=== PATIENT | male | born 1980 | race Caucasian/White ===

== ENCOUNTER → 2018-05-26 07:53 | Outpatient (CLI) | payer OTHER, SELFPAY ==
[2018-05-26 09:00] LABS: Glucose 100 mg/dL (74-106)
[2018-05-28 16:12] LABS: CHOLESTEROL TOTAL 182 mg/dL (100-199); HDL-C 42 mg/dL (>39); HDL-P TOTAL 31.9 umol/L (>=30.5); SMALL LDL-P 471 nmol/L (<=527); TRIGLYCERIDES 88 mg/dL (0-149)
[2018-05-29 13:41] LABS: LDL SIZE 21.1 nm (>20.5); LDL-C 122 mg/dL (0-99); LDL-P 1542 nmol/L (<1000); LP-IR SCORE ** 53 (<=45)
== END ==
PROVIDERS: Family Provider Internal Medicine; PCP Internal Medicine; Referring Provider Internal Medicine; Visit Provider Internal Medicine
DX: Z00.00 Encounter for general adult medical examination without abnormal findings (principal)
CPT/HCPCS: 36415; 80061; 82947; 83704

== ENCOUNTER → 2019-11-22 14:22 | Outpatient (CLI) | payer OTHER, SELFPAY ==
[2018-08-17 07:28] VITALS: BMI 34.1
[2019-11-22 17:41] LABS: Absolute Lymphocyte Count 2.56 X10^3/uL (0.83-4.51); Basophil# 0.04 X10^3/uL; Basophil% 0.4 % (0-1); Eosinophil# 0.29 X10^3/uL; Hematocrit 48.2 % (40-54); Hemoglobin 15.8 g/dL (13.0-16.5); Lymphocyte # 2.56 X10^3/ul (4.0); Lymphocyte % 26.2 % (19-41); Mean Corp Hgb Conc 32.8 g/dL (32-36); Mean Corpuscular Hgb 28.1 pg (27.0-32.0); Mean Corpuscular Volume 85.6 fL (80-94); Mean Platelet Vol. 11.4 fl (6.2-12.0); Monocyte# 0.79 X10^3/uL; Monocyte% 8.1 % (0-10); NRBC Flagged by Analyzer 0 % (0-5); Neutrophil # 6.04 X10^3/uL (2.7-7.7); Neutrophil % 61.8 % (47-70); Platelet Count 306 K/mm3 (150-450); RBC Distribution Width CV 12.9 % (11.6-14.6); RBC Distribution Width SD 39.6 fl (35.1-43.9); Red Blood Count 5.63 M/mm3 (4.6-6.2); White Blood Count 9.8 K/mm3 (4.4-11.0)
[2019-11-22 17:59] LABS: ALB/GLOB Ratio 0.9 RATIO (0.9-2.4); AST(SGOT) 19 U/L (15-37); Alanine Aminotransfer ALT/SGPT 52 U/L (16-61); Alkaline Phosphatase 84 U/L (45-117); Anion Gap 6 (5-15); BUN 10 mg/dL (7-18); BUN/Creat Ratio 11.1 RATIO (10-20); Bilirubin, Direct 0.13 mg/dL (0.00-0.30); Calcium,Total 9.4 mg/dL (8.5-10.1); Chloride 104 mmol/L (98-107); EST Glomerular Filtration Rate 100 mL/min (>60); Est Glom Filt Rate - Afr Amer 121 mL/min (>60); Globulin 4.6 g/dL (2.2-4.2); Glucose 72 mg/dL (74-106); Potassium 3.8 mmol/L (3.5-5.1); Protein, Total 8.6 g/dL (6.4-8.2); Sodium Level 136 mmol/L (136-145)
[2019-11-25 03:06] LABS: QNTFERON TB Mitogen Value > 10.00 IU/mL (.); QNTFERON TB Nil Value 0.01 IU/mL (.); QNTFERON TB1+ Ag Value 0.02 IU/mL (.); QNTFERON TB2+ Ag Value 0.02 IU/mL (.)
[2019-11-25 05:03] LABS: QNTIFERON TB Positive Criteria Negative (Negative)
== END ==
LOC: MTLAB 14:24
PROVIDERS: PCP Internal Medicine; Referring Provider Physician Assistant; Visit Provider Physician Assistant
DX: L40.0 Psoriasis vulgaris (principal)
CPT/HCPCS: 36415; 80053; 82248; 85025; 86480

== ENCOUNTER → 2020-10-31 08:20 | Outpatient (CLI) | payer OTHER, SELFPAY ==
[2018-08-17 07:28] VITALS: BMI 34.1
[2020-10-31 09:08] LABS: Absolute Lymphocyte Count 2.26 X10^3/uL (0.83-4.51); Absolute Neutrophil Count 5.9 X10^3/uL (2.0-7.7); Basophil# 0.05 X10^3/uL; Basophil% 0.5 % (0-1); Eosinophil# 0.37 X10^3/uL; Eosinophils% 3.9 % (0-5); Hematocrit 46.4 % (40-54); Hemoglobin 15.3 g/dL (13.0-16.5); Lymphocyte # 2.26 X10^3/ul (4.0); Lymphocyte % 23.6 % (19-41); Mean Corpuscular Hgb 28.7 pg (27.0-32.0); Mean Corpuscular Volume 86.9 fL (80-94); Mean Platelet Vol. 11.2 fl (6.2-12.0); Monocyte% 10.4 % (0-10); NRBC Flagged by Analyzer 0 % (0-5); Neutrophil # 5.87 X10^3/uL (2.7-7.7); Neutrophil % 61.2 % (47-70); Platelet Count 342 K/mm3 (150-450); RBC Distribution Width CV 12.8 % (11.6-14.6); RBC Distribution Width SD 40.5 fl (35.1-43.9); Red Blood Count 5.34 M/mm3 (4.6-6.2); White Blood Count 9.6 K/mm3 (4.4-11.0)
[2020-10-31 09:41] LABS: AST(SGOT) 25 U/L (15-37); Alanine Aminotransfer ALT/SGPT 68 U/L (16-61); Albumin, Serum 3.7 g/dL (3.2-5.0); Alkaline Phosphatase 91 U/L (45-117); Anion Gap 6 (5-15); BUN 13 mg/dL (7-18); BUN/Creat Ratio 12.6 RATIO (10-20); Bilirubin, Direct 0.11 mg/dL (0.00-0.30); Calcium,Total 9.1 mg/dL (8.5-10.1); Chloride 107 mmol/L (98-107); Cholesterol 177 mg/dL (200); Creatinine, Serum 1.03 mg/dL (0.70-1.30); EST Glomerular Filtration Rate 86 mL/min (>60); Est Glom Filt Rate - Afr Amer 104 mL/min (>60); Globulin 4.4 g/dL (2.2-4.2); Glucose 103 mg/dL (74-106); High Density Lipoprotein 51 mg/dL; Potassium 3.9 mmol/L (3.5-5.1); Protein, Total 8.1 g/dL (6.4-8.2); Sodium Level 137 mmol/L (136-145); Triglycerides 131 mg/dL; Very Low Density Lipoprotein 26 mg/dL (5-40)
[2020-11-02 10:34] LABS: Hepatitis B Surface Antibody Reactive; Hepatitis B Surface Antigen Non-Reactive (Nonreactive); Hepatitis C Antibody Non-Reactive (Nonreactive)
[2020-11-06 07:16] LABS: QNTFERON TB Mitogen Value > 10.00 IU/mL (.); QNTFERON TB Nil Value 0 IU/mL (.); QNTFERON TB1+ Ag Value 0.04 IU/mL (.); QNTFERON TB2+ Ag Value 0.03 IU/mL (.)
[2020-11-06 12:22] LABS: Hepatitis B Core Ab Total Negative (Negative); QNTIFERON TB Positive Criteria Negative (Negative)
== END ==
LOC: LAB 08:22
PROVIDERS: PCP Internal Medicine; Referring Provider Physician Assistant; Visit Provider Physician Assistant
DX: E78.2 Mixed hyperlipidemia (principal); L40.0 Psoriasis vulgaris; Z79.899 Other long term (current) drug therapy
CPT/HCPCS: 36415; 80048; 80061; 80076; 85025; 86480; 86704; 86706; 86803; 87340

== ENCOUNTER 2020-11-03 21:48 | Emergency (ER) | payer OTHER, SELFPAY ==
[2018-08-17 07:28] VITALS: BMI 34.1
[2020-11-03 21:49] VITALS: BP 146/94; PULSE 94; RESP 18; TEMP 35.9; O2SAT 96; BMI 36.1
--- NOTE | 2020-11-03 22:07 | ED.VIS.LOWEX ---
History of Present Illness Chief Complaint: Edema Informant: Patient, Significant Other Onset: Today Context: - - noticed today, unk details of onset Timing: Continuous Quality of Pain: - - no pain Location: RLE below knee Current Severity: Mild Maximum Severity: Mild Worsened by: nothing Relieved by: nothing Associated Symptoms: Negative for: Parasthesia, Weakness, Loss of Funtion Narrative: Swelling is started today, patient is concerned he may have a blood clot because he had a family member who had one. No history of clotting disorders that he knows of in him or the family. He has had no recent long travel, hospitalization, surgery, or immobilization. He states he has worked 7 12-hour shifts in a row, usually sits at a computer but he has been up frequently on his feet. He denies any chest pain, shortness of breath, palpitations, near syncope, or any other systemic symptoms or illness. Also denies having any leg pain with this and denies any injury. Past Medical History - Allergies and Home Meds Allergies/Adverse Reactions: Allergies No Known Allergies Allergy (Verified 08/26/14 14:28) Primary Care Physician: Berta Ontiveros DO [Primary Care Provider] - Past Medical History: None Smoking Status: Never smoker Review of Systems General: Denies: Chills, Fever, Sweats Eyes: Denies: Visual changes - bilaterally, Diplopia ENT: Denies: Rhinorrhea, Sore throat Cardiovascular: Denies: Chest pain, Palpitations Respiratory: Denies: Dyspnea, Cough, Dyspnea on exertion Gastrointestinal: Denies: Abdominal pain, Nausea, Vomiting, Diarrhea, Melena, Hematochezia Genitourinary: Denies: Dysuria, Hematuria, Frequency Musculoskeletal: Reports: Swelling. Denies: Back pain, Extremity Pain Skin: Denies: Rash, Wounds Neurological: Denies: Headache, Weakness, Numbness Physical Exam Vital Signs/Narrative: Vital Signs Temp Pulse Resp BP Pulse Ox 11/03/20 21:49 96.6 F L 94 18 146/94 H 96 Inital Vital Signs reviewed: Yes General: Well nourished, Well developed, - - Well-appearing no distress Head: Normocephalic, Atraumatic Respiratory: No distress Skin: Normal color, No rash - Except for small area of mild ecchymosis medial right calf junction between middle and distal thirds, nontender, no palpable cords, no signs of cellulitis or foreign body/nidus for infection. No lymphangitis. Neurological: Alert, Oriented x3, Cranial nerves II-XII grossly intact, Normal Strength, Normal Sensation, Normal Gait Psychological: Normal affect, Normal Mood Diagnostic/Tx/Re-eval - Medical Decision Making Ultrasound of the right lower extremity was obtained and is negative for DVT and SVT. The ecchymotic-looking area was noted by the crown and bridge dental lab technician to be varicose veins that do not appear to have any clot within them. Patient was reassured and advised to follow-up. I see nothing that looks infected, there is no tenderness throughout his leg. ED Disposition - Plan for ED Patient: Disposition: Home or Assisted Living Diagnosis: Varicose veins of right lower extremity Instructions: ED Peripheral Edema, Unilateral, ED Varicose Veins Referrals: Berta Ontiveros DO [Primary Care Provider] - As Needed
--- NOTE | 2020-11-03 22:08 | US_ITS ---
STUDY: VENOUS DOPPLER ULTRASOUND - RIGHT LOWER EXTREMITY REASON FOR EXAM: Male, 40 years old. MEDIAL RT CALF AREA OF SWELLING AND DISCOLORATION TECHNIQUE: Ultrasound evaluation of the deep vein system to include coronado-scale imaging and compression was performed. Coronado-scale imaging and Doppler sonographic evaluation, including duplex spectral analysis and qualitative color flow sonography, was performed. COMPARISON: None. FINDINGS: Common Femoral Vein: Normal compression, spontaneity and augmentation. Normal color Doppler. Common Femoral Vein/Greater Saphenous Junction: Normal compression. Femoral Proximal: Normal compression. Femoral Middle: Normal compression, spontaneity and augmentation. Normal color Doppler. Femoral Distal: Normal compression. Popliteal Vein: Normal compression, spontaneity and augmentation. Normal color Doppler. Posterior Tibial Vein: Normal compression. Peroneal Vein: Normal compression. US/Venous Duplex Imag/Limited/Uni IMPRESSION: No deep venous thrombosis of the lower extremity. Electronically Signed: Sanejev Matos DO at 23:49 EDT Tel [phone], Service support ,
[2020-11-03 22:56] VITALS: PULSE 77; RESP 15; O2SAT 98
== END 2020-11-03 22:56 | disposition home or self-care (01) ==
PROVIDERS: Emergency Provider Emergency Medicine; PCP Internal Medicine
DX: I83.91 Asymptomatic varicose veins of right lower extremity (principal)
CPT/HCPCS: 93971; 99283

== ENCOUNTER 2021-04-12 18:54 | Emergency (ER) | payer OTHER, SELFPAY ==
[2021-04-12 18:55] VITALS: BP 153/119; PULSE 100; RESP 18; TEMP 36.2; O2SAT 97; BMI 36.8
[2021-04-12 19:08] LABS: Bacteria 0 SEEN /hpf (None Seen); Mucous, Urine 0 SEEN /hpf (<or=2+); Red Blood Cells-Urine 0 SEEN /hpf (0-5); White Blood Cells 0 SEEN /hpf (0-5)
[2021-04-12 19:22] LABS: Color, Urine Yellow (Yellow); Glucose, Dipstick Normal (Normal); Ketone-Dipstick Negative (Negative); Leukocyte Esterase-Dipstick Negative /ul (Negative); Nitrite-Dipstick Negative (Negative); Occult Blood-Urine Negative /ul (Negative); Protein-Dipstick Negative (Negative); Specific Gravity, Urine 1.005 (1.002-1.030); Urine Bilirubin Dipstick Negative (Negative); Urine Clarity Sl. Cloudy (Clear); Urine Urobilinogen Normal (Normal); Urine pH 6.5 (5.0 - 8.0)
[2021-04-12 19:30] LABS: Squamous Epithelial Cells - UA 0-5 SEEN /hpf (0-5)
--- NOTE | 2021-04-12 19:38 | CT_ITS ---
INDICATION: Pain EXAMINATION: CT Abdomen And Pelvis W/O Contrast Injection TECHNIQUE: Helically acquired images were obtained of the abdomen and pelvis without the use of IV contrast. A radiation dose optimization technique was used for this scan. Oral contrast: None. COMPARISON: None FINDINGS: Evaluation of the solid organs and vascular structures is limited without intravenous contrast. Visualized lung bases: Unremarkable Liver: Diffusely hypodense consistent with fatty liver. Gallbladder: Surgically absent. Spleen: Unremarkable Pancreas: Unremarkable Adrenal Glands: Unremarkable Kidneys: Unremarkable Vasculature: Unremarkable GI Tract: Scattered diverticula throughout the colon without evidence of inflammation. Lymphadenopathy: None Peritoneum: No ascites. Bladder: Unremarkable Reproductive organs: Unremarkable Bones/Soft tissues: Postsurgical changes at L4-L5. CT/Abdomen/Pelvis without Cont IMPRESSION: No acute abnormalities in the abdomen or pelvis. Specifically, no evidence of renal or ureteral stones. Fatty liver. Diverticulosis. Electronically Signed: Tl Ann MD at 20:30 EDT Tel , Service support ,
--- NOTE | 2021-04-12 19:39 | ED.VIS.GI ---
HPI HPI - GI History of Present Illness Chief Complaint: Flank Pain Informant: spouse/S.O. Abdominal Pain/Flank Pain Onset: Days Context: Gradual Onset Timing: Continuous Current Severity: Mild Maximum Severity: Moderate Relieved by: Nothing Nausea/Vomiting/Emesis GI Symptom: Negative for Nausea Diarrhea/Melena/Hematochezia GI Symptom: Negative for Diarrhea Associated Symptoms Associated Symptoms: Negative for Dysuria, Frequency, Hematuria and Urgency Narrative Narrative: Cholecystectomy. He is never needed any of his stone surgically removed. States on Monday developed left flank pain continued on Monday and again today. Denies nausea or vomiting denies diarrhea or dysuria. No fever.32-year-old male history of kidney stones, hypertension, depression Prior similar symptoms: Yes Recent Illness/Hospitalization: No PFSH PFSH Medical History Chronic neck and back pain High blood pressure Kidney stones Home Medications amlodipine 5 mg tablet 5 mg PO DAILY 08/17/18 [History Last Taken Unknown] pantoprazole 20 mg tablet,delayed release 20 mg PO DAILY 08/17/18 [History Last Taken Unknown] escitalopram oxalate 10 mg PO DAILY 11/03/20 [History Last Taken Unknown] montelukast 10 mg PO DAILY 11/03/20 [History Last Taken Unknown] multivitamin 1 each PO DAILY 11/03/20 [History Last Taken Unknown] rosuvastatin 10 mg PO DAILY 11/03/20 [History Last Taken Unknown] Allergy/AdvReac Type Severity Reaction Status Date / Time No Known Allergies Allergy Verified 04/12/21 19:28 Surgical History History of back surgery Hx of cholecystectomy Social History Smoking Status: Never smoker ROS ROS ED ROS Narrative Flank pain. Review of Systems ROS Unobtainable: Denies due to encephalopathy Constitutional Constitutional ED: Denies chills or fever(s) ENT ENT ED: Denies ear pain or sore throat Cardiovascular Cardiovascular: Denies chest pain Respiratory/Chest Respiratory/Chest: Denies dyspnea Gastrointestinal Gastrointestinal: Denies abdominal pain, constipation, diarrhea, melena, nausea or vomiting Genitourinary Genitourinary ED: Denies dysuria, hematuria or urinary frequency Musculoskeletal Musculoskeletal: Denies arthralgias or myalgias Integumentary Denies rash Neurologic Neurologic: Denies headache(s) Psychiatric Psychiatric: Denies depression Endocrine Endocrinology: Denies polyuria Hematologic/Lymphatic Hematologic/Lymphatic: Denies easy bruising Allergic/Immunologic Allergic/Immunologic ED: Denies urticaria EXAM Physical Exam Narrative Exam Narrative: 5-year-old male no acute distress vital signs stable afebrile. Initial blood pressure elevated 153 119. Exam normal except left flank tenderness. Abdomen soft nontender normal bowel sounds no peritoneal signs. Lungs are clear. Heart regular rate and rhythm. Moving all 4 extremities. No edema. Neurologic exam normal. Const Vital Signs: 04/12/21 18:55 04/12/21 20:45 Temperature 97.2 F L Temperature Source Temporal Pulse Rate 100 80 Respiratory Rate 18 16 Blood Pressure 153/119 H Blood Pressure Mean 130 Pulse Ox 97 100 Oxygen Delivery Method Room Air Positive well nourished and well developed; Negative for obese, cachectic, contractures or unkempt General Appearance ED: well developed and NAD; Negative for unkempt, cachectic, contractures or pallor Nutritional Appearance: Negative for cachectic or obese HEENT Reports moist mucous membranes normocephalic and atraumatic; Negative for trauma or tenderness Eyes PERRL and EOMs intact bilaterally Neck no lymphadenopathy, supple and no JVD General: Negative for tenderness Resp normal respiratory effort and clear to auscultation bilaterally Auscultation: Negative for rales, rhonchi or wheezes Cardio regular rate, regular rhythm, S1 normal heart sound, S2 normal heart sound and no murmurs GI non-tender, non-distended and no masses Auscultation: normoactive bowel sounds Palpation: soft; Negative for tender, guarding or rigid Back/Spine Negative for no CVA tenderness Back/Spine Narrative: Left sided CVA tenderness. General Back: CVA tenderness Extremity full ROM General Extremety ED: Negative for edema or tenderness General Extremity: Negative for edema Neuro CN's II-XII intact bilaterally and moves all extremities Sensorium / Orientation: alert, oriented to person, oriented to place and oriented to time; Negative for orientation impaired, confused, lethargic or stuporous Motor Exam: strength 5/5 throughout Psych mental status grossly normal Appearance: Negative for unkempt Skin no wounds General Skin Exam: Negative for jaundice or pallor Lesions: no lesions Rashes: no rashes MDM MDM MDM Narrative Medical decision making narrative: 40-year-old left flank pain history of stones. Clinically this is a kidney stone. CAT scan labs are pending.He will be treated with IV morphine, Toradol and Zofran for pain and nausea. Repeat exam patient is doing well at 9:34 PM. His pain is resolved. He was moved to hallway bed because we needed the bed for more acute patient. I discussed all test results with he and his . He will be discharged home. Motrin for pain. Lab Data Attestation: I reviewed the patient's lab results. Lab results narrative: UA negative. No blood or white cells. No nitrites. CBC shows a white count of 13. Hemoglobin of 14. No bands. Electrolytes unremarkable gap of a normal creatinine. Normal glucose of 85. CT flank study showed no acute kidney stone or other abnormality accounting for his pain. Labs: Laboratory Results - last 24 hr 04/12/21 04/12/21 04/12/21 19:00 20:00 20:00 WBC 13.2 H RBC 5.03 Hgb 14.5 Hct 43.7 MCV 86.9 MCH 28.8 MCHC 33.2 RDW Std Deviation 40.3 RDW Coeff of Ricco 12.8 Plt Count 283 MPV 11.1 Immature Gran % (Auto) 0.500 Neut % (Auto) 63.4 Lymph % (Auto) 24.1 [place] % (Auto) 8.4 Eos % (Auto) 3.1 Baso % (Auto) 0.5 Absolute Neuts (auto) 8.4 H Absolute Lymphs (auto) 3.19 Nucleated RBC % 0 Sodium 136 Potassium 3.9 Chloride 103 Carbon Dioxide 25.0 Anion Gap 8 BUN 9 Creatinine 0.88 Estim Creat Clear Calc 117.52 Est GFR (MDRD) Af Amer 125 Est GFR (MDRD) Non-Af 103 BUN/Creatinine Ratio 10.3 Glucose 85 Calcium 9.3 Urine Color Yellow Urine Clarity Sl. Cloudy Urine pH 6.5 Ur Specific Mcintosh 1.005 Urine Protein Negative Urine Glucose (UA) Normal Urine Ketones Negative Urine Occult Blood Negative Urine Nitrite Negative Urine Bilirubin Negative Urine Urobilinogen Normal Ur Leukocyte Esterase Negative Urine RBC 0 SEEN Urine WBC 0 SEEN Ur Squamous Epith Cells 0-5 SEEN Urine Bacteria 0 SEEN Urine Mucus 0 SEEN Radiography Diagnostic Testing: Radiology Impression Abdomen/Pelvis CT 04/12/21 19:38 IMPRESSION: No acute abnormalities in the abdomen or pelvis. Specifically, no evidence of renal or ureteral stones. Fatty liver. Diverticulosis. Electronically Signed: Tl Ann MD at 20:30 EDT Tel , Service support , Discharge Plan Triage Chief Complaint: Flank Pain ED Provider: Cameron Eugene Dx/Rx/DC Orders Clinical Impression: Acute flank pain Instructions: ED Pain, Acute, Uncertain Cause Prescriptions: No Action amlodipine [Norvasc] 5 mg tablet 5 mg PO DAILY RF: 0 pantoprazole [Protonix] 20 mg tablet,delayed release (DR/EC) 20 mg PO DAILY RF: 0 multivitamin 1 EACH tablet 1 each PO DAILY RF: 0 montelukast 10 MG tablet 10 mg PO DAILY RF: 0 escitalopram oxalate 10 MG tablet 10 mg PO DAILY RF: 0 rosuvastatin 10 MG tablet 10 mg PO DAILY RF: 0 Primary Care Provider: Berta Ontiveros Referrals: Berta Ontiveros, [Primary Care Provider] - 3-5 Days if not improving Activity Restrictions/Additional Instructions: Your labs, and urinalysis and CAT scan showed no acute abnormality. If you had a kidney stone you have passed it. There is no signs of an acute kidney stone at this time. This could also be musculoskeletal pain. Hot shower and warm bath to relax the muscles. Motrin for pain. Follow-up if not improving or return if a lot worse. Disposition Disposition: Home, Self Care
[2021-04-12] MEDS: morphine 10 MG/ML Syringe IV (19:45)
[2021-04-12] MEDS: Ondansetron 4 MG/2 ML Vial IV (19:45)
[2021-04-12] MEDS: Ketorolac 30 MG/ML Syringe IV (19:45)
[2021-04-12 20:21] LABS: Absolute Lymphocyte Count 3.19 X10^3/uL (0.83-4.51); Absolute Neutrophil Count 8.4 X10^3/uL (2.0-7.7); Basophil# 0.07 X10^3/uL; Basophil% 0.5 % (0-1); Eosinophil# 0.41 X10^3/uL; Eosinophils% 3.1 % (0-5); Hematocrit 43.7 % (40-54); Hemoglobin 14.5 g/dL (13.0-16.5); Lymphocyte # 3.19 X10^3/ul (0.83-4.51); Lymphocyte % 24.1 % (19-41); Mean Corp Hgb Conc 33.2 g/dL (32-36); Mean Corpuscular Hgb 28.8 pg (27.0-32.0); Mean Corpuscular Volume 86.9 fL (80-94); Mean Platelet Vol. 11.1 fl (6.2-12.0); Monocyte# 1.11 X10^3/uL; Monocyte% 8.4 % (0-10); NRBC Flagged by Analyzer 0 % (0-5); Neutrophil # 8.38 X10^3/uL (2.7-7.7); Neutrophil % 63.4 % (47-70); Platelet Count 283 K/mm3 (150-450); RBC Distribution Width CV 12.8 % (11.6-14.6); RBC Distribution Width SD 40.3 fl (35.1-43.9); Red Blood Count 5.03 M/mm3 (4.6-6.2); White Blood Count 13.2 K/mm3 (4.4-11.0)
[2021-04-12 20:37] LABS: Anion Gap 8 (5-15); BUN 9 mg/dL (7-18); BUN/Creat Ratio 10.3 RATIO (10-20); Calcium,Total 9.3 mg/dL (8.5-10.1); Chloride 103 mmol/L (98-107); Creatinine, Serum 0.88 mg/dL (0.70-1.30); EST Glomerular Filtration Rate 103 mL/min (>60); Est Glom Filt Rate - Afr Amer 125 mL/min (>60); Estimated Creatinine Clearance 117.52 ml/min; Glucose 85 mg/dL (74-106); Potassium 3.9 mmol/L (3.5-5.1); Sodium Level 136 mmol/L (136-145)
[2021-04-12 20:45] VITALS: PULSE 80; RESP 16; O2SAT 100
== END 2021-04-12 21:43 | disposition home or self-care (01) ==
PROVIDERS: Emergency Provider Emergency Medicine; PCP Internal Medicine
DX: R10.9 Unspecified abdominal pain (principal); F32.9 Major depressive disorder, single episode, unspecified; K76.0 Fatty (change of) liver, not elsewhere classified; I10 Essential (primary) hypertension; Z87.442 Personal history of urinary calculi; Z90.49 Acquired absence of other specified parts of digestive tract
CPT/HCPCS: 74176; 80048; 81001; 85025; 96374; 96375; 99282; A4216; J2405

== ENCOUNTER → 2023-06-13 | Outpatient (CLI) | payer OTHER, SELFPAY ==
[2023-06-13 08:55] LABS: Bacteria 0 SEEN /hpf (None Seen); Mucous, Urine 0 SEEN /hpf (<or=2+); Red Blood Cells-Urine 0 SEEN /hpf (0-5); Squamous Epithelial Cells - UA 0 SEEN /hpf (0-5)
[2023-06-13 10:28] LABS: Absolute Lymphocyte Count 2.01 X10^3/uL (0.83-4.51); Absolute Neutrophil Count 6.9 X10^3/uL (2.0-7.7); Basophil# 0.05 X10^3/uL; Basophil% 0.5 % (0-1); Color, Urine Yellow (Yellow); Eosinophil# 0.36 X10^3/uL; Eosinophils% 3.6 % (0-5); Glucose, Dipstick Normal (Normal); Hematocrit 46.4 % (40-54); Hemoglobin 15.2 g/dL (13.0-16.5); Ketone-Dipstick 5 mg/dl (Negative); Leukocyte Esterase-Dipstick 25 /ul (Negative); Lymphocyte # 2.01 X10^3/ul (0.83-4.51); Lymphocyte % 20.2 % (19-41); Mean Corp Hgb Conc 32.8 g/dL (32-36); Mean Corpuscular Hgb 28.5 pg (27.0-32.0); Mean Corpuscular Volume 86.9 fL (80-94); Mean Platelet Vol. 11.3 fl (6.2-12.0); Monocyte# 0.64 X10^3/uL; Monocyte% 6.4 % (0-10); NRBC Flagged by Analyzer 0 % (0-5); Neutrophil # 6.86 X10^3/uL (2.7-7.7); Neutrophil % 69.1 % (47-70); Nitrite-Dipstick Negative (Negative); Occult Blood-Urine 50 /ul (Negative); Platelet Count 370 K/mm3 (150-450); Protein-Dipstick 30 mg/dl (Negative); RBC Distribution Width SD 40.6 fl (35.1-43.9); Red Blood Count 5.34 M/mm3 (4.6-6.2); Specific Gravity, Urine 1.025 (1.002-1.030); Urine Clarity Clear (Clear); Urine Urobilinogen 1 mg/dl (Normal); White Blood Count 9.9 K/mm3 (4.4-11.0)
[2023-06-13 10:32] LABS: Urine Bilirubin Dipstick 1 mg/dL (Negative)
[2023-06-13 10:37] LABS: Erythrocyte Sedimentation Rate 28 mm/hr (0-20)
[2023-06-13 10:40] LABS: White Blood Cells 0-5 SEEN /hpf (0-5)
[2023-06-13 10:57] LABS: Vitamin B12 443 pg/mL (211-911); Vitamin D,25 Hydroxy 26.6 ng/mL
[2023-06-13 11:04] LABS: Microalbumin,Random Urine 56.4 mg/L (NO RANGE EST.); Microalbumin:Creatinine Ratio 17.4 mg/g CRE (<30 mg/g CRE)
[2023-06-13 11:28] LABS: ALB/GLOB Ratio 0.9 RATIO (0.9-2.4); AST(SGOT) 17 U/L (15-37); Alanine Aminotransfer ALT/SGPT 47 U/L (16-61); Albumin, Serum 3.8 g/dL (3.2-5.0); Alkaline Phosphatase 82 U/L (45-117); Anion Gap 8 (5-15); BUN 15 mg/dL (7-18); BUN/Creat Ratio 15.2 RATIO (10-20); CRP 5.09 mg/L (0.0-3.0); Chloride 107 mmol/L (98-107); Cholesterol 146 mg/dL (200); Creatinine, Serum 0.98 mg/dL (0.70-1.30); EST Glomerular Filtration Rate 89 mL/min (>60); Est Glom Filt Rate - Afr Amer 108 mL/min (>60); Globulin 4.3 g/dL (2.2-4.2); Glucose 95 mg/dL (74-106); High Density Lipoprotein 44 mg/dL; Potassium 3.9 mmol/L (3.5-5.1); Protein, Total 8.1 g/dL (6.4-8.2); Rheumatoid Factor < 10.0 IU/mL (<15); Sodium Level 139 mmol/L (136-145); Thyroid Stim Hormone (TSH) 0.92 uIU/mL (0.358-3.74); Triglycerides 119 mg/dL; Very Low Density Lipoprotein 24 mg/dL (5-40)
[2023-06-14 12:09] LABS: ANTINUCLEAR ANTIBODIES DIRECT Negative (Negative)
== END | disposition home or self-care (01) ==
LOC: MTLAB 08:50
PROVIDERS: PCP Internal Medicine; Referring Provider Internal Medicine; Visit Provider Internal Medicine
DX: R53.83 Other fatigue (principal); F32.A Depression, unspecified; E78.2 Mixed hyperlipidemia; I10 Essential (primary) hypertension
CPT/HCPCS: 36415; 80053; 80061; 81001; 82043; 82306; 82570; 82607; 82746; 84443; 85025; 85652; 86038; 86140; 86431

== ENCOUNTER → 2023-07-14 | Outpatient (CLI) | payer OTHER, SELFPAY ==
[2023-07-14 09:24] LABS: Bacteria 0 SEEN /hpf (None Seen); Mucous, Urine 0 SEEN /hpf (<or=2+); White Blood Cells 0 SEEN /hpf (0-5)
[2023-07-14 10:17] LABS: Color, Urine Yellow (Yellow); Glucose, Dipstick Normal (Normal); Ketone-Dipstick 5 mg/dl (Negative); Leukocyte Esterase-Dipstick Negative /ul (Negative); Nitrite-Dipstick Negative (Negative); Occult Blood-Urine 25 /ul (Negative); Protein-Dipstick Negative (Negative); Urine Bilirubin Dipstick Negative (Negative); Urine Clarity Clear (Clear); Urine Urobilinogen Normal (Normal)
[2023-07-14 10:26] LABS: Red Blood Cells-Urine 0-5 SEEN /hpf (0-5); Squamous Epithelial Cells - UA 0-5 SEEN /hpf (0-5)
[2023-07-14 10:29] LABS: CRP, High Sensitivity Cardiac 5.74 mg/L; Erythrocyte Sedimentation Rate 27 mm/hr (0-20)
== END | disposition home or self-care (01) ==
LOC: MTLAB 09:20
PROVIDERS: PCP Internal Medicine; Referring Provider Internal Medicine; Visit Provider Internal Medicine
DX: R79.82 Elevated C-reactive protein (CRP) (principal); I10 Essential (primary) hypertension
CPT/HCPCS: 36415; 81001; 85652; 86141

== ENCOUNTER → 2024-02-03 | Outpatient (CLI) | payer OTHER, SELFPAY ==
[2024-02-03 11:18] LABS: Absolute Lymphocyte Count 2.71 X10^3/uL (0.83-4.51); Absolute Neutrophil Count 6.8 X10^3/uL (2.0-7.7); Basophil# 0.09 X10^3/uL; Basophil% 0.8 % (0-1); Eosinophil# 0.56 X10^3/uL; Eosinophils% 5.1 % (0-5); Hematocrit 48.2 % (40-54); Hemoglobin 15.7 g/dL (13.0-16.5); Lymphocyte # 2.71 X10^3/ul (0.83-4.51); Lymphocyte % 24.6 % (19-41); Mean Corp Hgb Conc 32.6 g/dL (32-36); Mean Corpuscular Hgb 28.1 pg (27.0-32.0); Mean Corpuscular Volume 86.2 fL (80-94); Mean Platelet Vol. 11.3 fl (6.2-12.0); Monocyte# 0.79 X10^3/uL; Monocyte% 7.2 % (0-10); NRBC Flagged by Analyzer 0 % (0-5); Neutrophil # 6.82 X10^3/uL (2.7-7.7); Neutrophil % 61.9 % (47-70); Platelet Count 362 K/mm3 (150-450); RBC Distribution Width SD 40.6 fl (35.1-43.9); Red Blood Count 5.59 M/mm3 (4.6-6.2)
[2024-02-03 11:42] LABS: ALB/GLOB Ratio 0.9 RATIO (0.9-2.4); AST(SGOT) 13 U/L (15-37); Alanine Aminotransfer ALT/SGPT 29 U/L (16-61); Albumin, Serum 3.7 g/dL (3.2-5.0); Alkaline Phosphatase 86 U/L (45-117); Anion Gap 4 (5-15); BUN 13 mg/dL (7-18); BUN/Creat Ratio 13.8 RATIO (10-20); Calcium,Total 9.2 mg/dL (8.5-10.1); Chloride 110 mmol/L (98-107); Cholesterol 155 mg/dL (200); Creatinine, Serum 0.94 mg/dL (0.70-1.30); EST Glomerular Filtration Rate 93 mL/min (>60); Est Glom Filt Rate - Afr Amer 113 mL/min (>60); Globulin 4.2 g/dL (2.2-4.2); Glucose 102 mg/dL (74-106); High Density Lipoprotein 44 mg/dL; Potassium 4.3 mmol/L (3.5-5.1); Protein, Total 7.9 g/dL (6.4-8.2); Sodium Level 138 mmol/L (136-145); Thyroid Stim Hormone (TSH) 1.32 uIU/mL (0.358-3.74); Triglycerides 124 mg/dL; Very Low Density Lipoprotein 25 mg/dL (5-40)
[2024-02-03 11:48] LABS: Vitamin D,25 Hydroxy 29.6 ng/mL
== END | disposition home or self-care (01) ==
LOC: LAB 10:36
PROVIDERS: PCP Internal Medicine; Referring Provider Internal Medicine; Visit Provider Internal Medicine
DX: E78.2 Mixed hyperlipidemia (principal); E55.9 Vitamin D deficiency, unspecified
CPT/HCPCS: 36415; 80053; 80061; 82306; 84443; 85025

== ENCOUNTER → 2024-04-01 | Outpatient (CLI) | payer OTHER, SELFPAY ==
[2024-04-03 20:08] LABS: QNTFERON TB Mitogen Value > 10.00 IU/mL (.); QNTFERON TB Nil Value 0.01 IU/mL (.); QNTFERON TB1+ Ag Value 0.01 IU/mL (.); QNTFERON TB2+ Ag Value 0.01 IU/mL (.); QNTIFERON TB Positive Criteria Negative (Negative)
== END | disposition home or self-care (01) ==
PROVIDERS: PCP Internal Medicine; Referring Provider Physician Assistant Medical; Visit Provider Physician Assistant Medical
DX: L70.0 Acne vulgaris (principal); L40.0 Psoriasis vulgaris; Z79.899 Other long term (current) drug therapy
CPT/HCPCS: 36415; 86480

== ENCOUNTER → 2024-11-28 | Outpatient (CLI) | payer OTHER, SELFPAY ==
--- NOTE | 2024-11-28 06:25 | ECHOCS_ITS ---
Reason For Study Reason For Study: SOB Procedure This was a 2D Doppler, Color Flow transthoracic echocardiogram. The study was technically difficult. Contrast injection was performed. Exam performed in department. Left Ventricle Normal LV size. Mild concentric left ventricular hypertrophy. The LV systolic function is normal. EF is 65 %. Stage 1 diastolic dysfunction. Right Ventricle Normal right ventricle. Atria The left and right atria are normal. Mitral Valve Trivial mitral valve insufficiency. Tricuspid Valve Trivial tricuspid valve insufficiency. Aortic Valve Trisinus/trileaflet aortic valve. Pulmonic Valve The pulmonic valve is not well visualized. Great Vessels Normal sized aortic root. Pericardium/Pleural No pericardial effusion. Medication Diluted definity 1ml given slow IV push to enhance endocardial definition. MMode/2D Measurements & Calculations LVIDd: 4.6 cm IVSd: 1.2 cm LVOT diam: 2.0 cm LVIDs: 3.4 cm LVPWd: 0.98 cm FS: 25.0 % LVOT area: 3.2 cm2 Ao root diam: 2.8 cm LAV(MOD-bp): 37.8 ml LVAd ap4: 28.0 cm2 LAV(MOD-bp) Indexed: 17.1 ml/m2 LVLd ap4: 8.4 cm LAV(MOD-sp2): 19.8 ml EDV(MOD-sp4): 74.3 ml LAV(MOD-sp4): 48.0 ml EDV(sp4-el): 79.1 ml LVAs ap4: 16.5 cm2 LVLs ap4: 6.6 cm ESV(MOD-sp4): 33.4 ml ESV(sp4-el): 35.1 ml EF(MOD-sp4): 55.0 % EF(sp4-el): 55.6 % SV(MOD-sp4): 40.8 ml SV(sp4-el): 44.0 ml LA A4 area: 19.1 cm2 SI(MOD-sp4): 18.4 ml/m2 LA dimension(2D): 3.8 cm RA A4 area: 13.2 cm2 Time Measurements MV dec time: 0.18 sec Doppler Measurements & Calculations MV E max khoi: 63.7 cm/sec Lat Peak E' Khoi: 18.1 cm/sec Med Peak E' Khoi: 13.1 cm/sec MV A max khoi: 62.8 cm/sec E/E' lat: 3.5 E/E' med: 4.9 MV E/A: 1.0 MV V2 max: 68.6 cm/sec MV dec slope: 348.4 cm/sec2 Ao V2 max: 124.3 cm/sec MV max P.9 mmHg Ao max P.2 mmHg MV V2 mean: 41.9 cm/sec Ao V2 mean: 84.5 cm/sec MV mean P.82 mmHg Ao mean P.3 mmHg MV V2 VTI: 24.1 cm Ao V2 VTI: 27.0 cm MVA(VTI): 2.8 cm2 AV (velocity ratio): 0.78 NENA(I,D): 2.5 cm2 NENA(V,D): 2.5 cm2 LV V1 max: 97.6 cm/sec SV(LVOT): 67.5 ml PA V2 max: 96.4 cm/sec LV V1 max P.8 mmHg PA V2 mean: 64.1 cm/sec LV V1 mean P.9 mmHg LV V1 mean: 63.5 cm/sec LV V1 VTI: 21.1 cm ECHO/Echo Complete W/ Contrast Interpretation Summary Mild concentric left ventricular hypertrophy. The LV systolic function is normal. EF is 65 %. Stage 1 diastolic dysfunction. Ordering Physician: Aarti Summers Referring Physician: Aarti Summers Performed By: Sejal Waite RCS
--- NOTE | 2024-11-28 09:32 | STRESSREP ---
Stress Test Report Date: 11/28/2024 Procedure: Exercise tolerance test/imaging study Indications: Dyspnea on exertion Consent: Per the patient Procedure: The patient exercised on a Blaise protocol for 10 minutes and 30 seconds achieving a peak heart rate of 184 bpm (103% predicted maximal heart rate) with a peak blood pressure 190/92 mmHg and a peak MET capacity of 13.4 METs. The baseline ECG demonstrated sinus rhythm. The peak exercise ECG showed downsloping ST depressions in inferior and lateral leads suggestive of ischemia. There were no cardiac dysrhythmias pretest, during exercise, or recovery. The functional capacity was considered excellent. There was no chest pain during exercise however patient did complain of dyspnea. The examination was discontinued secondary to target heart rate being achieved. The patient was injected with 14.7 mCi of technetium 99m Cardiolite and subsequently rest SPECT Cardiolite nuclear imaging was obtained in the horizontal long, vertical long, and short axis views. Post-exercise, the patient was injected with 44.8 mCi of technetium 99m Cardiolite and subsequently stress SPECT Cardiolite nuclear imaging was obtained in the horizontal long, vertical long, and short axis views. A gated Cardiolite study at peak stress was obtained. Rest and stress SPECT Cardiolite nuclear imaging status post realignment, normalization, and attenuation correction, demonstrates the appearance of relative uniform tracer uptake and myocardial perfusion appearing within normal limits. There is end systolic thickening and brightening. The gated Cardiolite study demonstrates myocardial thickening and inward wall motion. The reported LVEF is 60%. Impression: 1. Technically adequate (percent predicted maximal heart rate greater than 85%) exercise tolerance test 2. Peak exercise ECG with downsloping ST depressions in inferior and lateral leads, suggestive of ischemia 3. There were no cardiac dysrhythmias pretest, during exercise, or recovery 4. Rest and stress SPECT Cardiolite nuclear imaging demonstrate relative uniform tracer uptake and myocardial perfusion appearing within normal limits. 5. The gated Cardiolite study reports an LVEF of 60%. 6. With his positive exercise stress ECG but negative nuclear imaging, recommend another modalities such as coronary CT angiography for further evaluation for CAD. This note was generated with [employer] software. It may contain incorrect words, spelling, and punctuation that were not noted in checking the note before signing.
== END | disposition home or self-care (01) ==
LOC: CVS 06:24
PROVIDERS: PCP Internal Medicine; Referring Provider Internal Medicine; Visit Provider Internal Medicine
DX: R06.02 Shortness of breath (principal)
CPT/HCPCS: 78452; 93017; 93306; A9500; Q9957; A4216; C8929

== ENCOUNTER → 2025-01-04 | Outpatient (CLI) | payer OTHER, SELFPAY ==
--- OUTSIDE RECORDS SUMMARY | 2025-01-04 10:01 | XMS RPT_ITS | CCD ---
Author Organization [facility] Care Team Providers Care Loop Drier Operator Name Role Phone Sonido, Betra Unavailable Tanphaichitr, Joe, No longer in latisha Unavaila ble Unavailable Torsten Lynn Unavailable MessengerChaparrita Unavailable Unavailable Unavailable Unavailable Gravius, Eleanor Unavailable Unavailable Sonido, Berta Unavailable Tanphaichitr, Joe, No longer in latisha Unavaila ble Unavailable Torsten Lynn Unavailable MessengerChaparrita Unavailable Unavailable Lane Pro Unavailable Unavailable Unavailable Unavailable Gravius, Eleanor Unavailable Unavailable Gravius, Eleanor Unavailable Unavailable Vini Latisha, Deborah Unavailable Erickson Zahira Unavailable Unavailable MessengerChaparrita Unavailable Unavailable Maribel Celina Unavailable Unavailable Sonido DO, Berta Unavailable Tanphaichitr, Joe, No longer in latisha Unavaila ble Unavailable Vini Latisha, Deborah Unavailable Dr. Torsten Lynn Unavailable Maribel CATERING CHEF, Celina Unavailable Unavailable Gravius CERTIFICATION AND SELECTION SPECIALIST, Eleanor Unavailable Unavailable Messenger Chaparrita CHAVES Unavailable Unavailable Unavailable Unavailable Amira GAONA, Billie Unavailable Unavailable Kristopher LYNNE, Aarti Duran Unavailable [phone] Sonido DO, Ebrta Unavailable Lane Galvan LPN Unavailable Unavailable Sonido DO Berta Attending Unavailable Sonido DO Berta Referring Unavailable Sonido DO, Berta Consulting Unavailable Marshall ARROYO, Kayela Unavailable Unavailable Shell CATERING CHEF, Freddy Unavailable Unavailable Unavailable Unavailable Stephen Karoline FRANKEL Unavailable Unavailable Unavailable Unavailable Berta Head DO Primary Care Provider Sonido MCCLENDON, Dr. Hampton Primary Care Provider Kristopher LYNNE, Dr. Broussard Attending Provider Kristopher LYNNE, Dr. Broussard Referring Provider Kristopher LYNNE, Dr. Broussard Other Provider Gus LYNNE, Dr. Ceballos Attending Provider Nannette Headhleen Primary Care Unavailable Bonezzbenoit, Aarti Referring Unavailable Bonezzi, Aarti Attending Unavailable Goad PA, Keegan Attending Unavailable Sonido, Berta Primary Care Unavailable Goad PAKeegan Referring Unavailable Sonido, Berta Primary Care Unavailable Sonido, Berta Referring Unavailable Sonido, Berta Attending Unavailable Bonezzi, Aarti Referring Unavailable Bonezzi, Aarti Consulting Unavailable Tucker Weber Attending Unavailable Sonido, Berta Primary Care Unavailable SONIDO, BERTA K Referring Unavailable SONIDO, BERTA K Primary Care Unavailable SONIDO, BERTA K Referring Unavailable SONIDO, BERTA K Primary Care Unavailable Allergies Allergy Classification Reported Allergen(s) Allergy Type Date of Onset Reaction(s) Facility (1 source) ALLERGIES NOT ON FILE; Translations: [ALLERGIES NOT ON FILE] Propensity to adverse reactions (disorder) [facility] 2 Repository NEGATED: Highlighted row has been ruled out!Unclassified (1 source) Allergy to substance (finding) 5 [facility]; [facility] Work Phone: NEGATED: Highlighted row has been ruled out!Unclassified (1 source) Allergy to drug (finding) [facility]; [facility] Work Phone: NEGATED: Highlighted row has been ruled out! (1 source) allergy to substance 5 [facility] Work Phone: NEGATED: Highlighted row has been ruled out! (1 source) drug allergy [facility] Work Phone: NEGATED: Highlighted row has been ruled out! (1 source) Allergy to substance (finding) [facility]; [facility] Work Phone: NEGATED: Highlighted row has been ruled out! (1 source) Allergy to drug (finding) [facility]; [facility] Work Phone: NEGATED: Highlighted row has been ruled out! (1 source) Allergy to substance (finding) [facility]; [facility] Work Phone: NEGATED: Highlighted row has been ruled out! (1 source) Allergy to drug (finding) [facility]; [facility] Work Phone: NEGATED: Highlighted row has been ruled out! (1 source) Allergy to substance (finding) [facility]; [facility] Work Phone: NEGATED: Highlighted row has been ruled out! (1 source) Allergy to drug (finding) [facility]; [facility] Work Phone: NEGATED: Highlighted row has been ruled out! (1 source) Allergy to substance (finding) [facility]; [facility] Work Phone: NEGATED: Highlighted row has been ruled out! (1 source) Allergy to drug (finding) [facility]; [facility] Work Phone: NEGATED: Highlighted row has been ruled out! (1 source) Allergy to substance (finding) [facility]; [facility] Work Phone: NEGATED: Highlighted row has been ruled out! (1 source) Allergy to drug (finding) [facility]; [facility] Work Phone: NEGATED: Highlighted row has been ruled out! (1 source) Allergy to substance (finding) [facility]; [facility] Work Phone: NEGATED: Highlighted row has been ruled out! (1 source) Allergy to drug (finding) [facility]; [facility] Work Phone: NEGATED: Highlighted row has been ruled out! (1 source) Allergy to substance (finding) 5 [facility]; [facility] Work Phone: NEGATED: Highlighted row has been ruled out! (1 source) Allergy to drug (finding) [facility]; [facility] Work Phone: NEGATED: Highlighted row has been ruled out! (1 source) Allergy to substance (finding) [facility]; [facility] Work Phone: NEGATED: Highlighted row has been ruled out! (1 source) Allergy to drug (finding) [facility]; [facility] Work Phone: NEGATED: Highlighted row has been ruled out! (1 source) Allergy to substance (finding) [facility]; [facility] Work Phone: NEGATED: Highlighted row has been ruled out! (1 source) Allergy to drug (finding) [facility]; [facility] Work Phone: NEGATED: Highlighted row has been ruled out! (1 source) Allergy to substance (finding) [facility]; [facility] Work Phone: NEGATED: Highlighted row has been ruled out! (1 source) Allergy to drug (finding) [facility]; [facility] Work Phone: NEGATED: Highlighted row has been ruled out! (1 source) Allergy to substance (finding) [facility]; [facility] Work Phone: NEGATED: Highlighted row has been ruled out! (1 source) Allergy to drug (finding) [facility]; [facility] Work Phone: NEGATED: Highlighted row has been ruled out! (1 source) Allergy to substance (finding) 5 [facility]; [facility] Work Phone: NEGATED: Highlighted row has been ruled out! (1 source) Allergy to drug (finding) [facility]; [facility] Work Phone: NEGATED: Highlighted row has been ruled out! (1 source) Allergy to substance (finding) [facility]; [facility] Work Phone: NEGATED: Highlighted row has been ruled out! (1 source) Allergy to drug (finding) [facility]; [facility] Work Phone: NEGATED: Highlighted row has been ruled out! (1 source) Allergy to substance (finding) [facility]; [facility] Work Phone: NEGATED: Highlighted row has been ruled out! (1 source) Allergy to drug (finding) [facility]; [facility] Work Phone: NEGATED: Highlighted row has been ruled out! (1 source) Allergy to substance (finding) [facility]; [facility] Work Phone: NEGATED: Highlighted row has been ruled out! (1 source) Allergy to drug (finding) [facility]; [facility] Work Phone: NEGATED: Highlighted row has been ruled out! (1 source) Allergy to substance (finding) [facility]; [facility] Work Phone: NEGATED: Highlighted row has been ruled out! (1 source) Allergy to drug (finding) [facility]; [facility] Work Phone: NEGATED: Highlighted row has been ruled out! (1 source) Allergy to substance (finding) [facility]; [facility] Work Phone: NEGATED: Highlighted row has been ruled out! (1 source) Allergy to drug (finding) [facility]; [facility] Work Phone: NEGATED: Highlighted row has been ruled out! (1 source) Allergy to substance (finding) [facility]; [facility] Work Phone: NEGATED: Highlighted row has been ruled out! (1 source) Allergy to drug (finding) [facility]; [facility] Work Phone: NEGATED: Highlighted row has been ruled out! (1 source) Allergy to substance (finding) 02-06-201 5 [facility]; [facility] Work Phone: NEGATED: Highlighted row has been ruled out! (1 source) Allergy to drug (finding) [facility]; [facility] Work Phone: NEGATED: Highlighted row has been ruled out! (1 source) Allergy to substance (finding) [facility]; [facility] Work Phone: NEGATED: Highlighted row has been ruled out! (1 source) Allergy to drug (finding) [facility]; [facility] Work Phone: NEGATED: Highlighted row has been ruled out! (1 source) Allergy to substance (finding) [facility]; [facility] Work Phone: NEGATED: Highlighted row has been ruled out! (1 source) Allergy to drug (finding) [facility]; [facility] Work Phone: NEGATED: Highlighted row has been ruled out! (1 source) Allergy to substance (finding) 5 [facility]; [facility] Work Phone: NEGATED: Highlighted row has been ruled out! (1 source) Allergy to drug (finding) [facility]; [facility] Work Phone: NEGATED: Highlighted row has been ruled out! (1 source) Allergy to substance (finding) [facility]; [facility] Work Phone: NEGATED: Highlighted row has been ruled out! (1 source) Allergy to drug (finding) [facility]; [facility] Work Phone: NEGATED: Highlighted row has been ruled out! (1 source) Allergy to substance (finding) [facility]; [facility] Work Phone: NEGATED: Highlighted row has been ruled out! (1 source) Allergy to drug (finding) [facility]; [facility] Work Phone: NEGATED: Highlighted row has been ruled out! (1 source) Allergy to substance (finding) 5 [facility]; [facility] Work Phone: NEGATED: Highlighted row has been ruled out! (1 source) Allergy to drug (finding) [facility]; [facility] Work Phone: NEGATED: Highlighted row has been ruled out! (1 source) Allergy to substance (finding) [facility]; [facility] Work Phone: NEGATED: Highlighted row has been ruled out! (1 source) Allergy to drug (finding) [facility]; [facility] Work Phone: Medications Current Medications Medication Drug Class(es) Dates Sig (Normalized) Sig (Original) 24 hr amphetamine aspartate 5 mg / amphetamine sulfate 5 mg / dextroamphetamine saccharate 5 mg / dextroamphetamine sulfate 5 mg extended release oral capsule (11 sources) Central Nervous System Stimulant Start: 04-28-2023 take 1 capsule by mouth before breakfast Start: 04-28-2023 take 1 capsule by mouth before breakfast Start: 02-03-2023 take 1 capsule by mouth before breakfast Start: 01-23-2023 take 1 capsule by mouth before breakfast Start: 12-15-2022 take 1 capsule by mouth before breakfast cefdinir 300 mg oral capsule (3 sources) Cephalosporin Antibacterial Start: 06-05-2022 take 1 capsule by mouth twice daily Cefdinir 300 mg capsule Active 300 mg PO TWICE A DAY June 05, 2022 1:00am Multivitamin 1 EACH tablet (1 source) Start: 11-03-2020 Multivitamin 1 EACH tablet Active 1 NMA PO DAILY November 03, 2020 12:00am Multivitamin preparation (2 sources) Start: 11-03-2020 Multivitamin Active 1 EACH PO DAILY November 02, 2020 11:00pm Completed/Discontinued Medications Medication Drug Class(es) Dates Sig (Normalized) Sig (Original) acetaminophen 325 mg / oxyCODONE hydrochloride 5 mg oral tablet (20 sources) Opioid Agonist Start: 08-26-2014 End: 08-17-2018 Oxycodone-Acetamino phen 1 TABLET tablet Discontinued 1 - 2 {tbl} PO EVERY 4 HOURS NEEDED as needed for Pain August 30, 2014 1:17pm August 17, 2018 8:45am Start: 08-26-2014 End: 08-17-2018 take 1 tablet by mouth every four hours as needed Oxycodone-Acetaminophen Discontinued 1 - 2 TABLET PO EVERY 4 HOURS NEEDED August 30, 2014 12:17pm August 17, 2018 7:45am End: 10-07-2014 End: 10-07-2014 PERCOCET, 5-325MG (Oral Tabl et) uad (5-325 MG) End : 07-Oct-2014 Discontinued Comments: [facility] Comment on above: [facility] amLODIPine 5 mg oral tablet (20 sources) Dihydropyridine Calcium Channel Toi Start: 12-02-2022 Start: 06-03-2022 Start: 05-12-2021 Start: 07-27-2018 Start: 07-23-2018 take 1 tablet by mouth once da katelyn Norvasc 5 MG Oral Tablet 1 (one) Tablet qd for 0 days Quantity: 90 {Tablet} Refills: 3 Ordered: 23-Jul-2018 Berta Head DO, DO, Kathleen Start : 23-Jul-2018 Active Start: 07-20-2018 take 1 tablet by mouth once da katelyn Norvasc 5 MG Oral Tablet 1 (one) Tablet qd for 0 days Quantity: 30 {Tablet} Refills: 1 Ordered: 20-Jul-2018 Sonido DOBerta DO, Kathleen Start : 20-Jul-2018 Active Start: 07-20-2018 take 1 tablet by mouth once da katelyn Norvasc 5 MG Oral Tablet 1 (one) Tablet qd for 0 days Quantity: 90 {Tablet} Refills: 3 Ordered: 20-Jul-2018 Sonido DOBerta DO, Kathleen Start : 20-Jul-2018 Active Start: 02-07-2018 take 1 tablet by mouth once da katelyn Norvasc 5 MG Oral Tablet 1 (one) Tablet qd for 0 days Quantity: 90 {Tablet} Refills: 3 Ordered: 07-Feb-2018 Berta Head DO, DO, Kathleen Start : 07-Feb-2018 Active Comment on above: Mail order. amoxicillin 500 mg oral capsule (3 sources) Penicillin-class Antibacterial Start: 08-17-19 End: 08-27-19 take 1 capsule by mouth twice daily Amoxicillin 500 mg capsule Discontinued 500 mg PO TWICE A DAY 12 05August 17, 2018 1:00am August 26, 2018 1:00am August 27, 2018 1:08am amoxicillin 875 mg / clavulanate 125 mg oral tablet (20 sources) Penicillin-class Antibacterial Start: 01-06-20 End: 04-07-20 Start: 05-08-2022 End: 11-22-2023 Amoxicillin-Pot Clavulanate 875-125 mg tablet Discontinued 1 {tbl} PO TWICE A DAY May 08, 2022 12:00am November 22, 2023 5:06pm Start: 05-08-2022 take 1 tablet by cris twice daily Amoxicillin-Pot Clavulanate Active 1 TABLET PO TWICE A DAY May 07, 2022 11:00pm Start: 08-17-2021 End: 10-22-2021 Start: 11-27-2015 End: 12-11-2015 Start: 11-27-2015 End: 12-11-2015 take 1 tablet by mouth twice daily AUGMENTIN, 875-125MG (Oral Tablet) 1 Tablet bid for 14 days Quantity: 28 {Tablet} Refills: 0 Ordered: 27-Nov-2015 Mary Ann Gibson DO Start : 27-Nov-2015 End : 11-Dec-2015 Inactive apremilast 30 mg oral tablet (20 sources) Start: 05-29-2015 End: 08-21-2015 Comment on above: Arvin benzonatate 200 mg oral capsule (3 sources) Non-narcotic Antitussive Start: 06-05-2022 End: 06-12-2022 Benzonatate 200 mg capsule Discontinued 200 mg PO 2 to 3 times per day as needed for cough 10 02June 05, 2022 1:00am June 11, 2022 1:00am June 12, 2022 1:04am celecoxib 200 mg oral capsule (20 sources) Nonsteroidal Anti-inflammatory Drug Start: 07-15-2011 End: 04-04-2012 24 hr clarithromycin 500 mg extended release oral tablet (20 sources) Macrolide Antimicrobial Start: 04-04-2012 End: 04-18-2012 Start: 04-04-2012 End: 04-18-2012 take 2 tablets by mouth once daily BIAXIN XL PAC, 500MG (Oral Tablet Extended Release 24 Hour) 2 (two) Tablet ER 24HR daily for 14 days Quantity: 28 {Tablet_ER_24HR} Refills: 0 Ordered: 04-Apr-2012 Love Forbes CNP Start : 04-Apr-2012 End : 18-Apr-2012 Inactive Start: 04-04-2012 End: 04-18-2012 take 2 tablets by mouth once daily BIAXIN XL PAC, 500MG (Oral Tablet Extended Release 24 Hour) 2 (two) Tablet ER 24HR daily for 14 days Quantity: 28 {Tablet_ER_24HR} Refills: 0 Ordered: 04-Apr-2012 Love Forbes CNP Start : 04-Apr-2012 End : 18-Apr-2012 Inactive clotrimazole 10 mg oral loze nge (20 sources) Azole Antifungal Start: 06-17-2009 End: 06-27-2009 cyclobenzaprine hydrochlorid e 10 mg oral tablet (20 sources) Muscle Relaxant Start: 05-22-2013 End: 05-22-2013 Start: 11-27-2007 End: 04-26-2013 Comment on above: This order discontin ued per [facility]. desloratadine 5 mg oral tabl et (20 sources) Histamine-1 Receptor Antagonist Start: 12-10-2008 End: 06-17-2009 desoximetasone 0.5 mg/ml top ical cream (20 sources) Corticosteroid Start: 12-01-2010 End: 12-01-2010 Start: 12-01-2010 End: 12-01-2010 TOPICORT LP, 0.05% (External Cream) 1 (one) Cream bid prn for 0 days Quantity: 60 {Cream} Refills: 1 Ordered: 01-Dec-2010 Linda Hallman Start : 01-Dec-2010 End : 01-Dec-2010 Discontinued Comments: use sparingly Start: 10-24-2008 End: 06-17-2009 Start: 10-24-2008 End: 06-17-2009 TOPICORT, 0.25% (External Cr eam) 1 (one) Cream bid for 0 days Quantity: 60 {Cream} Refills: 2 Ordered: 24-Oct-2008 Shae Baker Start : 24-Oct-2008 End : 17-Jun-2009 Inactive Comment on above: use sparingly dexlansoprazole 60 mg delaye d release oral capsule (20 sources) Proton Pump Inhibitor End: 10-04-2021 diphenhydrAMINE hydrochlorid e 25 mg oral capsule (20 sources) Histamine-1 Receptor Antagonist Start: 05-22-2013 End: 05-22-2013 Start: 04-27-2012 End: 04-27-2012 Start: 04-27-2012 End: 04-27-2012 take 1 capsule by mouth once daily at bedtime as needed BENADRYL, 25MG (Oral Capsule) 1 Capsule qhs prn for 0 days Quantity: 30 {Capsule} Refills: 0 Ordered: 27-Apr-2012 Fast , Mary Ann Ramirez Start : 27-Apr-2012 End : 27-Apr-2012 Discontinued escitalopram 20 mg oral tabl et (20 sources) Serotonin Reuptake Inhibitor Start: 12-02-2022 Start: 09-29-2022 Start: 08-06-2020 Start: 07-15-2019 take 1 tablet by cris th once daily at bedtime Lexapro 10 MG Oral Tablet 1 (one) Tablet qhs for 90 days Quantity: 90 {Tablet} Refills: 3 Ordered: 15-Jul-2019 Eleanor Munoz CMA Start : 15-Jul-2019 Active Comments: Mail order. Start: 01-07-2019 take 1 tablet by cris th once daily at bedtime Lexapro 10 MG Oral Tablet 1 (one) Tablet qhs for 90 days Quantity: 90 {Tablet} Refills: 3 Ordered: 09-Jan-2019 Berta Head DO, DO, Kathleen Start : 09-Jan-2019 Active Comments: Mail order. Start: 09-27-2018 take 1 tablet by cris th once daily at bedtime Lexapro 10 MG Oral Tablet 1 (one) Tablet qhs for 0 days Quantity: 30 {Tablet} Refills: 3 Ordered: 27-Sep-2018 Berta Head DO, DO, Kathleen Start : 27-Sep-2018 Active Start: 08-27-2018 take 1 tablet by cris th once daily at bedtime Lexapro 10 MG Oral Tablet 1 (one) Tablet qhs for 0 days Quantity: 30 {Tablet} Refills: 3 Ordered: 27-Aug-2018 Berta Head DO, DO, Kathleen Start : 27-Aug-2018 Active Comment on above: Mail order. 24 hr etodolac 400 mg extend ed release oral tablet (20 sources) Nonsteroidal Anti-inflammatory Drug Start: 04-20-2006 End: 03-23-2007 Start: 04-20-2006 End: 03-23-2007 take 2 tablets by mouth once daily LODINE XL, 400MG (Oral Tablet Extended Release 24 Hour) 2 (two) Tablet ER 24HR Daily for 0 days Quantity: 30 {Tablet_ER_24HR} Refills: 0 Ordered: 20-Apr-2006 Shae Baker Start : 20-Apr-2006 End : 23-Mar-2007 Discontinued Start: 04-20-2006 End: 03-23-2007 take 2 tablets by mouth once daily LODINE XL, 400MG (Oral Tablet Extended Release 24 Hour) 2 (two) Tablet ER 24HR Daily for 0 days Quantity: 30 {Tablet_ER_24HR} Refills: 0 Ordered: 20-Apr-2006 Shae Baker Start : 20-Apr-2006 End : 23-Mar-2007 Discontinued famotidine 20 mg oral tablet (20 sources) Histamine-2 Receptor Antagonist Start: 03-05-2013 End: 03-12-2013 Start: 04-27-2012 End: 04-27-2012 fexofenadine hydrochloride 1 80 mg oral tablet (20 sources) Histamine-1 Receptor Antagonist Start: 04-27-2012 End: 03-05-2013 flunisolide 0.025 mg/actuat metered dose nasal spray (20 sources) Corticosteroid Start: 01-07-2019 End: 07-15-2019 Start: 01-07-2019 End: 07-15-2019 take 1 spray(s) nasal route once daily Flunisolide 25 MCG/ACT (0.025%) Nasal Solution 1 (one) [place] each nostril daily for 0 days Quantity: 1 {Container} Refills: 2 Ordered: 15-Jul-2019 Eleanor Munoz CMA Start : 07-Jan-2019 End : 15-Jul-2019 Inactive ibuprofen 200 mg oral tablet (20 sources) Nonsteroidal Anti-inflammatory Drug Start: 08-21-2007 End: 10-24-2008 iohexol (OMNIPaque) 350 mg iodine/mL solution 70 mL (1 source) Start: 12-18-2024 End: 12-18-2024 70 mL, intravenous, Once in imaging, Starting on Mon12/18/24 at 0932, For 1 dose lisinopril 5 mg oral tablet (20 sources) Angiotensin Converting Enzyme Inhibitor Start: 03-18-2011 End: 03-18-2011 Start: 03-18-2011 End: 03-18-2011 take 2 tablets by mouth in the morning, then take 1 tablet by mouth in the evening LISINOPRIL, 5MG (Oral Tablet) 2 (two) Tablet am 1 pm for 90 days Quantity: 270 {Tablet} Refills: 3 Ordered: 18-Mar-2011 Mary Ann Gibson DO Start : 18-Mar-2011 End : 18-Mar-2011 Discontinued loratadine 10 mg oral tablet (20 sources) Start: 05-22-2013 End: 05-22-2013 losartan potassium 100 mg or al tablet (20 sources) Angiotensin 2 Receptor Toi Start: 12-22-2016 End: 12-22-2016 Comment on above: dizzy and pressure i n head and blurred vision for reading Mail order. meclizine hydrochloride 25 m g oral tablet (20 sources) Antiemetic Start: 12-02-2022 Start: 10-22-2021 metaxalone 800 mg oral table t (20 sources) Muscle Relaxant Start: 04-20-2006 End: 03-23-2007 MEDROL (LATOYA), 4MG (Oral Tabl et) (20 sources) Corticosteroid Start: 05-22-2013 End: 05-22-2013 Start: 05-22-2013 End: 05-22-2013 MEDROL (LATOYA), 4MG (Oral Tabl et) 1 Tablet uad for 0 days Refills: 0 Ordered: 22-May-2013 Mary Ann Gibson DO Start : 22-May-2013 End : 22-May-2013 Discontinued montelukast 10 mg oral table t (20 sources) Leukotriene Receptor Antagonist Start: 12-02-2022 Start: 05-05-2022 Start: 05-03-2022 Start: 08-06-2020 take 1 tablet by cris th once daily Montelukast 10 MG tablet Active 10 mg PO DAILY November 03, 2020 12:00am Start: 07-15-2019 take 1 tablet by cris th once daily at bedtime Singulair 10 MG Oral Tablet 1 (one) Tablet qhs for 90 days Quantity: 90 {Tablet} Refills: 3 Ordered: 15-Jul-2019 Eleanor Munoz CMA Start : 15-Jul-2019 Active Comments: Mail order. Start: 07-27-2018 take 1 tablet by cris th once daily at bedtime Singulair 10 MG Oral Tablet 1 (one) Tablet qhs for 90 days Quantity: 90 {Tablet} Refills: 3 Ordered: 27-Jul-2018 Berta Head DO, DO, Kathleen Start : 27-Jul-2018 Active Comments: Mail order. Start: 07-23-2018 take 1 tablet by cris th once daily at bedtime Singulair 10 MG Oral Tablet 1 (one) Tablet qhs for 90 days Quantity: 90 {Tablet} Refills: 3 Ordered: 23-Jul-2018 Berta Head DO, DO, Kathleen Start : 23-Jul-2018 Active Start: 07-20-2018 take 1 tablet by cris th once daily at bedtime Singulair 10 MG Oral Tablet 1 (one) Tablet qhs for 90 days Quantity: 90 {Tablet} Refills: 3 Ordered: 20-Jul-2018 Berta Head DO, DO, Kathleen Start : 20-Jul-2018 Active Start: 07-28-2016 take 1 tablet by cris th once daily at bedtime Singulair 10 MG Oral Tablet 1 (one) Tablet qhs for 90 days Quantity: 90 {Tablet} Refills: 3 Ordered: 28-Jul-2016 Berta Head DO, DO, Kathleen Start : 28-Jul-2016 Active Comment on above: Mail order. nitroglycerin 0.4 mg sublingual tablet (1 source) Nitrate Vasodilator Start: 12-19-19 End: 12-19-19 take 0.8 mg under the tongue once 0.8 mg, sublingual, Once, On Mon12/18/24 at 0915, For 1 dose, Preprocedure, FOR CORONARY CTA PROCEDURE USE ONLY To be given upon arrival to Cardiac CT scan. Do Not Administer if heart rate is less than 55 and systolic blood pressure is less than 90 mmHg, if recent (48 hours) use of Phosphodiesterse-5 inhibitors for erectile dysfunction-Avanafil (Stendra), Sildenafil (Viagra, Revatio), Tadafil (Adcirca, Cialis), or Vardenafil (Levitra, Staxyn), hypersensitivity to organic nitrates, symptomatic hypotension. Start: 12-18-2024 End: 12-18-2024 take 0.8 mg under the tongue once 0.8 mg, sublingual, Once, On Mon12/18/24 at 0915, For 1 dose, Preprocedure, FOR CORONARY CTA PROCEDURE USE ONLY To be given upon arrival to Cardiac CT scan. Do Not Administer if heart rate is less than 55 and systolic blood pressure is less than 90 mmHg, if recent (48 hours) use of Phosphodiesterse-5 inhibitors for erectile dysfunction-Avanafil (Stendra), Sildenafil (Viagra, Revatio), Tadafil (Adcirca, Cialis), or Vardenafil (Levitra, Staxyn), hypersensitivity to organic nitrates, symptomatic hypotension. olmesartan medoxomil 40 mg o ral tablet (20 sources) Angiotensin 2 Receptor Toi Start: 02-07-2018 End: 02-07-2018 Start: 08-29-2014 End: 08-17-2018 take 1 tablet by mouth once daily Olmesartan 5 MG tablet Discontinued 5 mg PO DAILY August 29, 2014 1:00am August 17, 2018 8:45am Comment on above: Mail order. omeprazole 40 mg delayed rel ease oral capsule (20 sources) Proton Pump Inhibitor Start: 12-02-2022 Start: 06-03-2022 Start: 10-22-2021 Start: 10-04-2021 ondansetron 4 mg oral tablet (20 sources) Serotonin-3 Receptor Antagonist Start: 09-27-2018 End: 07-15-2019 Start: 08-26-2014 End: 08-17-2018 take 1 tablet by mouth every eight hours as needed for nausea Ondansetron 4 MG tablet Discontinued 4 mg PO EVERY 8 HOURS NEEDED as needed for Nausea August 26, 2014 1:00am August 17, 2018 8:45am Comment on above: give GENERATION MANAGER version if available oseltamivir 75 mg oral capsu le (20 sources) Neuraminidase Inhibitor Start: 10-25-2019 End: 01-16-2020 Start: 08-03-2017 End: 08-08-2017 pantoprazole 40 mg delayed r elease oral tablet (20 sources) Proton Pump Inhibitor Start: 09-27-2021 End: 09-29-2021 Start: 05-07-2021 Start: 11-05-2020 Start: 08-06-2020 take 1 tablet by cris once daily Pantoprazole Sodium 40 MG Oral Tablet Delayed Release 1 (one) Tablet daily for 90 days Quantity: 90 {Tablet} Refills: 3 Ordered: 06-Aug-2020 SonidoBerta sharma DO, DO, Kathleen Start : 06-Aug-2020 Active Comments: Mail order. Start: 07-15-2019 take 1 tablet by cris th once daily Protonix 40 MG Oral Tablet Delayed Release 1 (one) Tablet DR daily for 90 days Quantity: 90 {Tablet} Refills: 3 Ordered: 15-Jul-2019 Eleanor Munoz CMA Start : 15-Jul-2019 Active Comments: Mail order. Start: 08-27-2018 take 1 tablet by cris th once daily Protonix 40 MG Oral Tablet Delayed Release 1 (one) Tablet DR daily for 90 days Quantity: 90 {Tablet} Refills: 3 Ordered: 27-Aug-2018 Berta Head DO, DO, Kathleen Start : 27-Aug-2018 Active Comments: Mail order. Start: 08-17-2018 take 1 tablet by cris th once daily Pantoprazole (Protonix) 20 mg tablet,delayed release (DR/EC) Active 20 mg PO DAILY August 17, 2018 1:00am Start: 08-29-2014 End: 08-17-2018 take 1 tablet by mouth once daily Pantoprazole 40 MG tablet Discontinued 40 mg PO DAILY August 29, 2014 1:00am August 17, 2018 8:45am Comment on above: Mail order. predniSONE 20 mg oral tablet (3 sources) Start: 06-05-2022 End: 06-11-2022 Prednisone 20 mg tablet Discontinued 20 mg PO As Directed 7 6 June 05, 2022 1:00am June 10, 2022 1:00am June 11, 2022 1:09am Take 2 tab (40 mg) x 2 days then 1 tab (20mg) x 2 days then 1/2 tab (10mg) x 2 days then stop promethazine hydrochloride 12.5 mg oral tablet (20 sources) Phenothiazine End: 10-07-2014 Comment on above: [facility] Skyrizi (150 MG Dose) 75 MG/0.83ML Subcutaneous Prefilled Syringe Kit (20 sources) rosuvastatin calcium 10 mg oral tablet (20 sources) HMG-CoA Reductase Inhibitor Start: 12-02-2022 Start: 10-24-2022 Start: 06-03-2022 Start: 08-06-2020 Start: 07-06-2020 take 1 tablet by mouth once da katelyn Crestor 10 MG Oral Tablet 1 (one) Tablet daily for 90 days Quantity: 90 {Tablet} Refills: 0 Ordered: 06-Jul-2020 Sonido DO, Berta Sonido DO, Berta Start : 06-Jul-2020 Active Comments: Mail order. Start: 07-06-2020 take 1 tablet by mouth once da katelyn Crestor 10 MG Oral Tablet 1 (one) Tablet daily for 90 days Quantity: 90 {Tablet} Refills: 0 Ordered: 06-Jul-2020 Sonido DO, Berta Sonido DO, Berta Start : 06-Jul-2020 Active Comments: Mail order. Start: 07-06-2020 take 1 tablet by mouth once da katelyn Crestor 10 MG Oral Tablet 1 (one) Tablet daily for 90 days Quantity: 90 {Tablet} Refills: 0 Ordered: 06-Jul-2020 Sonido DO, Berta Sonido DO, Berta Start : 06-Jul-2020 Active Comments: Mail order. Start: 04-02-2020 take 1 tablet by mouth once da katelyn Crestor 10 MG Oral Tablet 1 (one) Tablet daily for 30 days Quantity: 30 {Tablet} Refills: 6 Ordered: 02-Apr-2020 Volodymyr López LPNcy Start : 02-Apr-2020 Active Comment on above: Mail order. Skyrizi (150 MG Dose) 75 MG/0.83ML Subcutaneous Prefilled Syringe Kit (10 sources) Skyrizi (150 MG Dose) 75 MG/0.83ML Subcutaneous Prefilled Syringe Kit 1 every 2-3 mo (75 MG/0.83ML) Active Comments: macario chopra Comment on above: conlium nav Strabelkisra (20 sources) End: 04-20-2006 Straterra End : 20-Apr-2006 Discontinued sulfacetamide sodium 100 mg/ml ophthalmic solution (20 sources) Sulfonamide Antibacterial Start: 09-25-2013 End: 10-07-2014 Start: 09-25-2013 End: 10-07-2014 BLEPH-10, 10% (Ophthalmic So lution) 1 (one) Applicator Applicator in left eye q 2-3 hrs x7-10 days for 0 days Quantity: 1 {Bottle} Refills: 0 Ordered: 07-Oct-2014 Linda Hallman Start : 25-Sep-2013 End : 07-Oct-2014 Discontinued sulfamethoxazole 800 mg / trimethoprim 160 mg oral tablet (20 sources) Dihydrofolate Reductase Inhibitor Antibacterial, Sulfonamide Antimicrobial Start: 07-05-2016 End: 07-12-2016 Start: 07-05-2016 End: 07-12-2016 take 1 tablet by mouth twice daily Bactrim DS 800-160 MG Oral Tablet 1 (one) Tablet BID for 7 days Quantity: 14 {Tablet} Refills: 0 Ordered: 05-Jul-2016 Alfredo Kunz MD Start : 05-Jul-2016 End : 12-Jul-2016 Inactive triamcinolone acetonide 0.05 5 mg/actuat metered dose nasal spray (20 sources) Corticosteroid Start: 08-23-2011 End: 11-18-2011 Start: 08-23-2011 End: 11-18-2011 Start: 08-23-2011 End: 11-18-2011 NASACORT AQ, 55MCG/ACT (Nasa l Aerosol Solution) 2 (two) Aerosol Soln qd for 0 days Quantity: 1 {Aerosol_Soln} Refills: 0 Ordered: 18-Nov-2011 Linda Hallman Start : 23-Aug-2011 End : 18-Nov-2011 Inactive 20 actuat zanamivir 5 mg/act uat dry powder inhaler (20 sources) Neuraminidase Inhibitor Start: 06-15-2009 End: 06-22-2009 Start: 06-15-2009 End: 06-22-2009 RELENZA DISKHALER, 5MG/BLIST ER (Inhalation Aerosol Powder Breath Activated) 1 (one) Aero Pow Br Act bid for 5 days Refills: 0 Ordered: 15-Jun-2009 Shae Baker Start : 15-Jun-2009 End : 22-Jun-2009 Inactive (8 sources) End: 04-20-2006 Problems Active Problems Problem Classification Problem Date Documented Date Episodic/Chronic Abdominal pain (20 sources) Acute abdominal pain; Translations: [Epigastric pain] Resolved: 7 05-12-2017 Episodic Comment on above: EKG: T wave inversio n lead 3, frequent ectopic ventricular beat.stress test echo7 days: epigastric pain, improved yestaerdayConstant stabbing, crampy. 8-9/10Walking made it better, sitting worse.Appetite was lowDenies acid reflux but has Hiatal herniaEndoscopy 2009? maycol , [id number]: cholecysteomy for gall stone UACT scan stone prot ocol3 mnths: bilateral flank pain R>L, constant nagging pain, 5/10, but gets 7/10 when lay on rt sideGot worse 2 days agoWOrse when laying on rt side.1 day:Dysuria, Denies fever, suprapubic pain, Kidney stone on right sides, 2010?. given shot to pass stone , saw blod in urineUC 2 days ago, told to go to ED for further testing,UA : blood Administrative/social admission (20 sources) Counseling procedure with explicit context; Translations: [Patient encounter status] 05-04-2018 Episodic Allergic reactions (20 sources) Contact dermatitis; Translations: [Eczema] Resolved: 2 05-12-2017 Episodic Comment on above: no rash today but so unds like excema or contact- will give cortisone- prn- come in while rash present if not better Blindness and vision defects (20 sources) Diplopia; Translations: [Diplopia] Resolved: 0 05-12-2017 Episodic Cardiac dysrhythmias (20 sources) Ventricular premature beats; Translations: [Ectopic beats] 05-04-2018 Chronic Cardiac dysrhythmias (20 sources) Palpitations; Translations: [Intermittent palpitations] 05-04-2018 Episodic Conditions associated with dizziness or vertigo (20 sources) Benign paroxysmal positional vertigo; Translations: [BPV (benign positional vertigo), bilateral] 01-07-2019 Episodic Comment on above: mild will use otc fl onase adn decogn Conditions associated with dizziness or vertigo (17 sources) Conditions associated with dizziness or vertigo Diabetes mellitus without complication (18 sources) Hyperglycemia; Translations: [Hyperglycemia] 01-05-2023 Episodic Disorders of lipid metabolism (20 sources) Hyperlipidemia; Translations: [Mixed hyperlipidemia] Onset: 4 05-04-2018 Chronic Disorders of teeth and jaw (18 sources) Dental abscess; Translations: [Tooth abscess] 01-05-2023 Episodic Disorders usually diagnosed in infancy, childhood, or adolescence (20 sources) Attention deficit hyperactivity disorder, predominantly inattentive type; Translations: [ADD (attention deficit disorder) without hyperactivity] 12-15-2022 Chronic Diverticulosis and diverticulitis (20 sources) Diverticulosis of colon (without mention of hemorrhage); Translations: [Diverticulosis of colon (without mention of hemorrhage)] 05-04-2018 Chronic Esophageal disorders (20 sources) Gastroesophageal reflux disease; Translations: [Gastro-esophageal reflux disease without esophagitis] 05-04-2018 Chronic Comment on above: stable with meds Esophageal disorders (18 sources) Esophageal disorders Essential hypertension (20 sources) Benign essential hypertension; Translations: [Benign essential hypertension] Onset: 5 05-04-2018 Chronic Fever of unknown origin (20 sources) Fever with chills; Translations: [Fever] Resolved: 0 02-07-2018 Episodic Genitourinary symptoms and ill-defined conditions (20 sources) Dysuria; Translations: [Dysuria] 05-04-2018 Episodic Immunizations and screening for infectious disease (20 sources) Need for prophylactic vaccination and inoculation against influenza; Translations: [Needs influenza immunization] 03-26-2020 Episodic Inflammation, infection of eye (20 sources) Acute conjunctivitis; Translations: [Serous conjunctivitis] Resolved: 5 05-12-2017 Episodic Influenza (20 sources) Influenza; Translations: [Influenza] 05-04-2018 Episodic Influenza (20 sources) Influenza Intestinal infection (20 sources) Infectious gastroenteritis; Translations: [Gastroenteritis (009.0) (Renamed from Infectious gastroenteritis)] Resolved: 0 05-12-2017 Episodic Comment on above: improving -- call wi th update tomorrow Malaise and fatigue (20 sources) Fatigue; Translations: [Fatigue] Resolved: 9 05-12-2017 Episodic Mood disorders (20 sources) Acute depression; Translations: [Depression, acute] 05-23-2019 Chronic Mood disorders (20 sources) Major depressive disorder, single episode, unspecified; Translations: [Mood disorders] 08-27-2018 Mycoses (20 sources) Candidiasis of mouth; Translations: [Onychomycosis] Resolved: 0 05-12-2017 Episodic Nausea and vomiting (20 sources) Nausea and vomiting; Translations: [Nausea with vomiting] Resolved: 0 05-12-2017 Episodic Nutritional deficiencies (18 sources) Vitamin D deficiency; Translations: [Vitamin D deficiency] 01-05-2023 Chronic Open wounds of extremities (20 sources) Multiple and unspecified open wound of upper limb, complicated; Translations: [Arm/Upper Limb] Resolved: 2 05-12-2017 Episodic Other circulatory disease (20 sources) Elevated blood-pressure reading without diagnosis of hypertension; Translations: [Elevated blood pressure (not hypertension)] Resolved: 0 05-12-2017 Episodic Other connective tissue disease (20 sources) Foot pain; Translations: [Foot pain] Resolved: 9 05-12-2017 Episodic Other connective tissue disease (20 sources) Plantar fascial fibromatosis; Translations: [Plantar fascial fibromatosis] Resolved: 9 05-12-2017 Episodic Comment on above: plantar fasc vs heel pain syndrome, new job, walking on metal grating with steel boots. low socks Other gastrointestinal disorders (20 sources) Dysphagia Episodic Other gastrointestinal disorders (20 sources) Dysphagia, unspecified; Translations: [Dysphagia, unspecified dysphagia] Resolved: 2 05-12-2017 Episodic Other inflammatory condition of skin (20 sources) Psoriasis; Translations: [Psoriasis] 05-04-2018 Chronic Other injuries and conditions due to external causes (20 sources) Insect bite, nonvenomous, of other, multiple, and unspecified sites, without mention of infection; Translations: [Insect bite] Resolved: 3 05-12-2017 Episodic Other injuries and conditions due to external causes (20 sources) Tick bite Resolved: 5 10-07-2014 Episodic Other liver diseases (20 sources) Abnormal levels of other serum enzymes; Translations: [Elevated liver enzymes level] Resolved: 8 02-07-2018 Episodic Comment on above: eating clean and wt loss consder cleanse Other lower respiratory disease (20 sources) Cough; Translations: [Cough] Resolved: 0 01-16-2020 Episodic Other lower respiratory disease (2 sources) Shortness of breath; Translations: [Shortness of breath] Onset: 5 Episodic Other nervous system disorders (20 sources) Carpal tunnel syndrome; Translations: [Carpal tunnel syndrome, unspecified laterality] 05-04-2018 Chronic Comment on above: chronic stable-juan manuel nue present regimen Other nervous system disorders (20 sources) Unable to concentrate ; Translations: [Lack of concentration] 12-02-2022 Chronic Other nervous system disorders (20 sources) Paresthesia 05-04-2018 Episodic Other non-traumatic joint disorders (20 sources) Knee pain; Translations: [Knee pain] Resolved: 8 02-07-2018 Episodic Comment on above: better Other nutritional; endocrine; and metabolic disorders (20 sources) Body mass index 30+ - obesity; Translations: [BMI 36.0-36.9,adult] Resolved: 1 05-04-2018 Chronic Other skin disorders (20 sources) Disorder of nail; Translations: [Nail disorder] 03-26-2020 Episodic Other upper respiratory disease (20 sources) Allergic rhinitis; Translations: [Other allergic rhinitis] 05-04-2018 Chronic Other upper respiratory infections (20 sources) Chronic sinusitis; Translations: [Chronic Sinusitis] 05-04-2018 Chronic Other upper respiratory infections (20 sources) Acute pharyngitis; Translations: [Acute sinusitis] Onset: 1 Resolved: 5 04-28-2015 Episodic Comment on above: x3 days take otc antihistmai ne call if colored draiange think viral Otitis media and related conditions (20 sources) Otitis media; Translations: [Otitis media] Resolved: 3 05-12-2017 Episodic Comment on above: improving he wiill u se nasal spray think just fluid left Residual codes; unclassified (20 sources) Influenza-like symptoms; Translations: [Flu-like symptoms] Resolved: 8 02-07-2018 Episodic Residual codes; unclassified (20 sources) History of cholecystectomy; Translations: [History of cholecystectomy] 07-20-2018 Episodic Comment on above: 2014 for gall stone Residual codes; unclassified (20 sources) Needs influenza immunization; Translations: [Need for prophylactic vaccination and inoculation against influenza] 07-20-2018 Episodic Residual codes; unclassified (20 sources) Disturbance in sleep behavior; Translations: [Sleep disturbance] 09-27-2018 Episodic Comment on above: stable -- no worse Residual codes; unclassified (20 sources) Chill; Translations: [Chills] Resolved: 0 10-28-2019 Episodic Residual codes; unclassified (20 sources) Noncompliance with treatment; Translations: [Compliance poor (Renamed from Poor compliance)] Resolved: 0 01-16-2020 Episodic Residual codes; unclassified (20 sources) Non-smoker; Translations: [Nonsmoker] 11-05-2020 Episodic Residual codes; unclassified (4 sources) Viral syndrome; Translations: [Flu-like symptoms] Resolved: 8 08-27-2018 Episodic Retinal detachments; defects; vascular occlusion; and retinopathy (20 sources) Choroidal retinal neovascularization; 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 not want to go back to PT, gave exercises see follow up not beter MRI send to ortho sx off this week. torad ol. ice rest [id number] muscle relaxant. not better PT xray Unclassified (20 sources) Liver function tests abnormal; Translations: [Other specified abnormal findings of blood chemistry] Onset: 5 Resolved: 9 05-12-2017 Episodic Unclassified (20 sources) Generalized aches and pains; Translations: [Needs influenza immunization] Resolved: 8 02-07-2018 Episodic Comment on above: 2014 for gall stone Unclassified (20 sources) Unclassified (20 sources) Intermittent palpitations Unclassified (20 sources) Diverticulosis of colon (without mention of hemorrhage) (562.10) Unclassified (20 sources) Arm/Upper Limb (884.1) Unclassified (20 sources) Elevated liver enzymes Unclassified (20 sources) Body mass index 35.0-35.9, adult Unclassified (20 sources) Nonsmoker; Translations: [Non-smoker] 05-04-2018 Unclassified (20 sources) midline hernia 05-04-2018 Unclassified (20 sources) Carpel tunnel syndrome (354.0) Unclassified (20 sources) BMI 36.0-36.9,adult Unclassified (20 sources) Upper respiratory tract infection, unspecified type Unclassified (20 sources) Nutritional counseling Unclassified (20 sources) Onchomycosis (110.1) Unclassified (20 sources) Hyperlipemia Unclassified (20 sources) Elevated Blood Pressure(796.2) Unclassified (20 sources) Abdominal Pain,RUQ(789.01) Unclassified (20 sources) Elevated LFT (790.6) Unclassified (20 sources) vision change Unclassified (20 sources) Other allergic rhinitis Unclassified (20 sources) Sleep disturbance Unclassified (20 sources) BMI 37.0-37.9, adult Unclassified (10 sources) Compliance poor (Renamed from Poor compliance) Unclassified (8 sources) Hyperlipemia, mixed Unclassified (2 sources) Asymptomatic varicose vein of lower extremity without complication Urinary tract infections (20 sources) Urinary tract infectious disease; Translations: [UTI (urinary tract infection)] 05-04-2018 Episodic Varicose veins of lower extremity (20 sources) Varicose veins of lower extremity; Translations: [Asymptomatic varicose vein of lower extremity without complication] 11-05-2020 Episodic Past or Other Problems Problem Classification Problem Date Documented Date Episodic/Chronic Other non-traumatic joint disorders (20 sources) Pain in unspecified knee; Translations: [Knee pain] Resolved: 8 08-27-2018 Episodic Other skin disorders (7 sources) Inflammatory dermatosis; Translations: [Dermatitis] Resolved: 2 11-18-2011 Episodic Other skin disorders (1 source) Acne vulgaris; Translations: [Acne vulgaris] Onset: 4 Episodic Unclassified (20 sources) Insect bite (919.4) Unclassified (20 sources) Choroidal retinal neovascularization of right eye Unclassified (20 sources) Annual physical exam; Translations: [Patient encounter status] 05-04-2018 Unclassified (20 sources) Body aches Unclassified (20 sources) Flu-like symptoms Unclassified (20 sources) Physical exam; Translations: [Patient encounter status] 05-04-2018 Unclassified (20 sources) Unspecified Diagnosis Resolved: 0 11-13-2009 Unclassified (20 sources) possible psoriasis Resolved: 9 05-12-2017 Comment on above: seems to be improvin g-continue with regimen- Unclassified (20 sources) Past hx of Scurry Resolved: 8 02-07-2018 Unclassified (20 sources) Gastroenteritis (009.0) (Renamed from Infectious gastroenteritis (009.0)) Unclassified (20 sources) family hx of high chol Resolved: 9 05-12-2017 Unclassified (20 sources) atypical nevus Resolved: 9 05-12-2017 Comment on above: punch today Unclassified (20 sources) Ectopic beat, ventricular Unclassified (20 sources) SPONDYLOLISTHESIS, NOS (738.4) 05-04-2018 Unclassified (20 sources) Acute epigastric pain Unclassified (20 sources) Patient encounter status; Translations: [Annual physical exam] 05-04-2018 Unclassified (20 sources) Non-smoker; Translations: [Nonsmoker] 07-20-2018 Unclassified (20 sources) BMI 35.0-35.9,adult Unclassified (10 sources) Encounter for well adult exam with abnormal findings Unclassified (10 sources) Pharyngitis, acute Unclassified (10 sources) Nail disorder Results Test Name Value Interpretation Reference Range Facility CT ANGIO CORONARY ART WITH H EARTFLOW IF SCORE >30%on 12-18-2024 CT ANGIO CORONARY ART WITH HEARTFLOW IF SCORE >30% Interpreted By: Chang Jones and Amoah Joseph STUDY: CT ANGIO CORONARY ART WITH HEARTFLOW IF SCORE >30%; 12/18/2024 9:32 am INDICATION: Signs/Symptoms:ABNORMAL STRESS TEST. ,R94.39 Abnormal result of other cardiovascular function study COMPARISON: None. ACCESSION NUMBER(S): [id number] ORDERING CLINICIAN: BERTA HEAD TECHNIQUE: Using multi-detector CT technology, axial, sequential imaging with prospective gating was performed of the chest following the intravenous administration of N/A N/A. In addition, CT-FFR analysis was also performed. The patient was premedicated with as needed i.v metoprolol and 0.8 mg sublingual nitroglycerin for heart rate control and coronary dilation, respectively. For optimization of anatomic evaluation, multiplanar reconstruction, maximum intensity projections, and advanced 3-D off-line postprocessing were performed on a dedicated stand-alone workstation under the direct supervision of the interpreting physician. FINDINGS: POTENTIAL STUDY LIMITATIONS: None. CORONARY ARTERIES: LM: 0 LAD: 0 LCX: 0 RCA: 0 TOTAL: 0 CORONARY ANATOMY: There is normal origin of the coronary arteries. LEFT MAIN CORONARY ARTERY: The left main is normal sized vessel that bifurcates into the LAD and circumflex. There is no significant atherosclerotic change or stenotic disease. LEFT ANTERIOR DESCENDING ARTERY: The LAD is a normal size vessel that wraps around the apex. It gives rise to 3 acute diagonal branches appear widely patent. Mild luminal irregularities are noted in the proximal LAD. There is no significant obstructive disease. LEFT CIRCUMFLEX ARTERY: The LCX is a normal size vessel, which is non-dominant. It gives rise to 2 obtuse marginal branches. There is no significant atherosclerotic change or stenotic disease. RIGHT CORONARY ARTERY: The RCA is a normal size vessel, which is dominant. Mild luminal irregularities are noted in the proximal RCA. It gives rise to a conus branch, halle branch, and 2 acute marginal branches. In its distal segment it bifurcates into the PDA and PV branch. There is no significant atherosclerotic change or stenotic disease. CARDIAC CHAMBERS: The cardiac chambers demonstrate normal atrioventricular and ventriculoarterial concordance, and systemic and pulmonary venous return. LEFT ATRIUM: Normal size (21-cm2) RIGHT ATRIUM: Dilated (20-cm2) INTERATRIAL SEPTUM: Intact. LEFT VENTRICLE: Normal size (4.9-cm) RIGHT VENTRICLE: Normal size (4.7-cm) AORTIC VALVE: The aortic valve is trileaflet in morphology. No calcifications. MITRAL VALVE: No thickening/calcification. THORACIC AORTA: The visualized thoracic aorta is normal in course, caliber, and contour. There is no acute aortic pathology, such as dissection, intramural hematoma, or contained rupture. The aortic arch is not included on this examination. PERICARDIUM: There is no pericardial effusion of thickening. CHEST: The chest wall is normal. Calcified hilar lymph nodes likely granulomatous disease and there is diffuse calcified pulmonary nodules. Multiple calcifications are noted in the right lower lobe, some of which measure approximately 1 cm. This may represent healed pulmonary granulomas. No significant lymphadenopathy or mass is seen in limited images of the mediastinum. Limited imaging through the lungs reveals no gross abnormalities. No pleural effusion or pneumothorax. UPPER ABDOMEN: Limited imaging through the upper abdomen reveals no abnormalities of the visualized organs. IMPRESSION: 1. Normal coronary anatomy without evidence of significant obstructive coronary disease. 2. Right dominant coronary system 3. Coronary artery calcium score is 0 4. Sequela of prior granulomatous disease noted at the hilar lymph nodes and lungs. MACRO: None Signed by: Chang Jones 12/18/2024 11:35 AM Dictation workstation: [id number] [facility] CTA Heart and Coronary arter ies WO and W contrast Reshma 12-18-2024 1. Normal coronary anatomy without evidence of significant obstructive coronary disease. 2. Right dominant coronary system 3. Coronary artery calcium score is 0 4. Sequela of prior granulomatous disease noted at the hilar lymph nodes and lungs. MACRO: None Signed by: Chang Jones 12/18/2024 11:35 AM Dictation workstation: [id number] Interpreted By: Chang Jones and Amoah Joseph STUDY: CT ANGIO CORONARY ART WITH HEARTFLOW IF SCORE >30%; 12/18/2024 9:32 am INDICATION: Signs/Symptoms:ABNORMAL STRESS TEST. ,R94.39 Abnormal result of other cardiovascular function study COMPARISON: None. ACCESSION NUMBER(S): [id number] ORDERING CLINICIAN: BERTA HEAD TECHNIQUE: Using multi-detector CT technology, axial, sequential imaging with prospective gating was performed of the chest following the intravenous administration of N/A N/A. In addition, CT-FFR analysis was also performed. The patient was premedicated with as needed i.v metoprolol and 0.8 mg sublingual nitroglycerin for heart rate control and coronary dilation, respectively. For optimization of anatomic evaluation, multiplanar reconstruction, maximum intensity projections, and advanced 3-D off-line postprocessing were performed on a dedicated stand-alone workstation under the direct supervision of the interpreting physician. FINDINGS: POTENTIAL STUDY LIMITATIONS: None. CORONARY ARTERIES: LM: 0 LAD: 0 LCX: 0 RCA: 0 TOTAL: 0 CORONARY ANATOMY: There is normal origin of the coronary arteries. LEFT MAIN CORONARY ARTERY: The left main is normal sized vessel that bifurcates into the LAD and circumflex. There is no significant atherosclerotic change or stenotic disease. LEFT ANTERIOR DESCENDING ARTERY: The LAD is a normal size vessel that wraps around the apex. It gives rise to 3 acute diagonal branches appear widely patent. Mild luminal irregularities are noted in the proximal LAD. There is no significant obstructive disease. LEFT CIRCUMFLEX ARTERY: The LCX is a normal size vessel, which is non-dominant. It gives rise to 2 obtuse marginal branches. There is no significant atherosclerotic change or stenotic disease. RIGHT CORONARY ARTERY: The RCA is a normal size vessel, which is dominant. Mild luminal irregularities are noted in the proximal RCA. It gives rise to a conus branch, halle branch, and 2 acute marginal branches. In its distal segment it bifurcates into the PDA and PV branch. There is no significant atherosclerotic change or stenotic disease. CARDIAC CHAMBERS: The cardiac chambers demonstrate normal atrioventricular and ventriculoarterial concordance, and systemic and pulmonary venous return. LEFT ATRIUM: Normal size (21-cm2) RIGHT ATRIUM: Dilated (20-cm2) INTERATRIAL SEPTUM: Intact. LEFT VENTRICLE: Normal size (4.9-cm) RIGHT VENTRICLE: Normal size (4.7-cm) AORTIC VALVE: The aortic valve is trileaflet in morphology. No calcifications. MITRAL VALVE: No thickening/calcification. THORACIC AORTA: The visualized thoracic aorta is normal in course, caliber, and contour. There is no acute aortic pathology, such as dissection, intramural hematoma, or contained rupture. The aortic arch is not included on this examination. PERICARDIUM: There is no pericardial effusion of thickening. CHEST: The chest wall is normal. Calcified hilar lymph nodes likely granulomatous disease and there is diffuse calcified pulmonary nodules. Multiple calcifications are noted in the right lower lobe, some of which measure approximately 1 cm. This may represent healed pulmonary granulomas. No significant lymphadenopathy or mass is seen in limited images of the mediastinum. Limited imaging through the lungs reveals no gross abnormalities. No pleural effusion or pneumothorax. UPPER ABDOMEN: Limited imaging through the upper abdomen reveals no abnormalities of the visualized organs. [facility] MMODAL Chang Jones MD - 12/18/2024 Interpreted By: Chang Jones and Amoah Joseph STUDY: CT ANGIO CORONARY ART WITH HEARTFLOW IF SCORE >30%; 12/18/2024 9:32 am INDICATION: Signs/Symptoms:ABNORMAL STRESS TEST. ,R94.39 Abnormal result of other cardiovascular function study COMPARISON: None. ACCESSION NUMBER(S): [id number] ORDERING CLINICIAN: BERTA HEAD TECHNIQUE: Using multi-detector CT technology, axial, sequential imaging with prospective gating was performed of the chest following the intravenous administration of N/A N/A. In addition, CT-FFR analysis was also performed. The patient was premedicated with as needed i.v metoprolol and 0.8 mg sublingual nitroglycerin for heart rate control and coronary dilation, respectively. For optimization of anatomic evaluation, multiplanar reconstruction, maximum intensity projections, and advanced 3-D off-line postprocessing were performed on a dedicated stand-alone workstation under the direct supervision of the interpreting physician. FINDINGS: POTENTIAL STUDY LIMITATIONS: None. CORONARY ARTERIES: LM: 0 LAD: 0 LCX: 0 RCA: 0 TOTAL: 0 CORONARY ANATOMY: There is normal origin of the coronary arteries. LEFT MAIN CORONARY ARTERY: The left main is normal sized vessel that bifurcates into the LAD and circumflex. There is no significant atherosclerotic change or stenotic disease. LEFT ANTERIOR DESCENDING ARTERY: The LAD is a normal size vessel that wraps around the apex. It gives rise to 3 acute diagonal branches appear widely patent. Mild luminal irregularities are noted in the proximal LAD. There is no significant obstructive disease. LEFT CIRCUMFLEX ARTERY: The LCX is a normal size vessel, which is non-dominant. It gives rise to 2 obtuse marginal branches. There is no significant atherosclerotic change or stenotic disease. RIGHT CORONARY ARTERY: The RCA is a normal size vessel, which is dominant. Mild luminal irregularities are noted in the proximal RCA. It gives rise to a conus branch, halle branch, and 2 acute marginal branches. In its distal segment it bifurcates into the PDA and PV branch. There is no significant atherosclerotic change or stenotic disease. CARDIAC CHAMBERS: The cardiac chambers demonstrate normal atrioventricular and ventriculoarterial concordance, and systemic and pulmonary venous return. LEFT ATRIUM: Normal size (21-cm2) RIGHT ATRIUM: Dilated (20-cm2) INTERATRIAL SEPTUM: Intact. LEFT VENTRICLE: Normal size (4.9-cm) RIGHT VENTRICLE: Normal size (4.7-cm) AORTIC VALVE: The aortic valve is trileaflet in morphology. No calcifications. MITRAL VALVE: No thickening/calcification. THORACIC AORTA: The visualized thoracic aorta is normal in course, caliber, and contour. There is no acute aortic pathology, such as dissection, intramural hematoma, or contained rupture. The aortic arch is not included on this examination. PERICARDIUM: There is no pericardial effusion of thickening. CHEST: The chest wall is normal. Calcified hilar lymph nodes likely granulomatous disease and there is diffuse calcified pulmonary nodules. Multiple calcifications are noted in the right lower lobe, some of which measure approximately 1 cm. This may represent healed pulmonary granulomas. No significant lymphadenopathy or mass is seen in limited images of the mediastinum. Limited imaging through the lungs reveals no gross abnormalities. No pleural effusion or pneumothorax. UPPER ABDOMEN: Limited imaging through the upper abdomen reveals no abnormalities of the visualized organs. IMPRESSION: 1. Normal coronary anatomy without evidence of significant obstructive coronary disease. 2. Right dominant coronary system 3. Coronary artery calcium score is 0 4. Sequela of prior granulomatous disease noted at the hilar lymph nodes and lungs. MACRO: None Signed by: Chang Jones 12/18/2024 11:35 AM Dictation workstation: [id number] [facility] Work Phone: Radiology Study observation (narrative) [facility] Work Phone: CTA Heart and Coronary arter ies WO and W contrast IVOrdered By: Chang Jones on 12-18-2024 [facility] Work Phone: Cardiovascular stress test r eportOrdered By: Tucker Weber on 11-28-2024 Study report [facility] [address] [place] [address] MR#: [id number] Acct: [id number] Name: MARTINEZ TESFAYE Rep #: [id number] : 1980 44 From: Tucker Weber MD Primary Care: Dr. Berta Head DO Sta tus: REG CLI Referring Dr: Aarti uSmmers MD Sex: M C Stress Test Report Date: 11/28/2024 Procedure: Exercise tolerance test/imaging study Indications: Dyspnea on exertion Consent: Per the patient Procedure: The patient exercised on a Blaise protocol for 10 minutes and 30 seconds achieving a peak heart rate of 184 bpm (103% predicted maximal heart rate) with a peak blood pressure 190/92 mmHg and a peak MET capacity of 13.4 METs. The baseline ECG demonstrated sinus rhythm. The peak exercise ECG showed downsloping ST depressions in inferior and lateral leads suggestive of ischemia. There were no cardiac dysrhythmias pretest, during exercise, or recovery. The functional capacity was considered excellent. There was no chest pain during exercise however patient did complain of dyspnea. The examination was discontinued secondary to target heart rate being achieved. The patient was injected with 14.7 mCi of technetium 99m Cardiolite and subsequently rest SPECT Cardiolite nuclear imaging was obtained in the horizontal long, vertical long, and short axis views. Post-exercise, the patientwas injected with 44.8 mCi of technetium 99m Cardiolite and subsequently stress SPECT Cardiolite nuclear imaging was obtained in the horizontal long, vertical long, and short axis views. A gated Cardiolite study at peak stress was obtained. Rest and stress SPECT Cardiolite nuclear imaging status post realignment, normalization, and attenuation correction, demonstrates the appearance of relative uniform tracer uptake and myocardial perfusion appearing within normal limits. There is end systolic thickening and brightening. The gated Cardiolitestudy demonstrates myocardial thickening and inward wall motion. The reported LVEF is 60%. Impression: 1. Technically adequate (percent predicted maximal heart rate greater than 85%)exercise tolerance test 2. Peak exercise ECG with downsloping ST depressions in inferior and lateral leads, suggestive of ischemia 3. There were no cardiac dysrhythmias pretest, during exercise, or recovery 4. Rest and stress SPECT Cardiolite nuclear imaging demonstrate relative uniform tracer uptake and myocardial perfusion appearing within normal limits. 5. The gated Cardiolite study reports an LVEF of 60%. 6. With his positive exercise stress ECG but negative nuclear imaging, recommend another modalities such as coronary CT angiography for further evaluation for CAD. This note was generated with [employer] dictation software. It may contain incorrectwords, spelling, and punctuation that were not noted in checking the note beforesigning. 11/28/24934 Date _ Tucker Weber MD CC: Dr. Aarti Summers MD; Dr. Berta Head, DO ~ Date Dictated: 11/28/24931 Date Transcribed: 11/28/24931 Rn Enterostomal: ADDIE Zamorano [facility] Work Phone: Echo Complete W/ Contraston 11-28-2024 Echo Complete W/ Contrast [facility] [address] [facility] [place] [address] Echo Complete W/ Contrast 11/28/24 0936 MR#: [id number] Acct: [id number] Name: MARTINEZ TESFAYE Rep #: [id number] : 1980 44 From: Tucker Weber MD Attending Dr: Dr. Aarti Summers MD Status: REG CLI Ordering Dr: Aarti Summers MD Date: 11/28/24 Location: [facility] Sex: M C Admitted: Reason For Study Reason For Study: SOB Procedure This was a 2D Doppler, Color Flow transthoracic echocardiogram. The study was technically difficult. Contrast injection was performed. Exam performed in department. Left Ventricle Normal LV size. Mild concentric left ventricular hypertrophy. The LV systolic function is normal. EF is 65 %. Stage 1 diastolic dysfunction. Right Ventricle Normal right ventricle. Atria The left and right atria are normal. Mitral Valve Trivial mitral valve insufficiency. Tricuspid Valve Trivial tricuspid valve insufficiency. Aortic Valve Trisinus/trileaflet aortic valve. Pulmonic Valve The pulmonic valve is not well visualized. Great Vessels Normal sized aortic root. Pericardium/Pleural No pericardial effusion. Medication Diluted definity 1ml given slow IV push to enhance endocardial definition. MMode/2D Measurements Calculations LVIDd: 4.6 cm IVSd: 1.2 cm LVOT diam: 2.0 cm LVIDs: 3.4 cm LVPWd: 0.98 cm FS: 25.0 % LVOT area: 3.2 cm2 Ao root diam: 2.8 cm LAV(MOD-bp): 37.8 ml LVAd ap4: 28.0 cm2 LAV(MOD-bp) Indexed: 17.1 ml/m2 LVLd ap4: 8.4 cm LAV(MOD-sp2): 19.8 ml EDV(MOD-sp4): 74.3 ml LAV(MOD-sp4): 48.0 ml EDV(sp4-el): 79.1 ml LVAs ap4: 16.5 cm2 LVLs ap4: 6.6 cm ESV(MOD-sp4): 33.4 ml ESV(sp4-el): 35.1 ml EF(MOD-sp4): 55.0 % EF(sp4-el): 55.6 % SV(MOD-sp4): 40.8 ml SV(sp4-el): 44.0 ml LA A4 area: 19.1 cm2 SI(MOD-sp4): 18.4 ml/m2 LA dimension(2D): 3.8 cm RA A4 area: 13.2 cm2 Time Measurements MV dec time: 0.18 sec Doppler Measurements Calculations MV E max klaus: 63.7 cm/sec Lat Peak E' Klaus: 18.1 cm/sec Med Peak E' Klaus: 13.1 cm/sec MV A max klaus: 62.8 cm/sec E/E' lat: 3.5 E/E' med: 4.9 MV E/A: 1.0 MV V2 max: 68.6 cm/sec MV dec slope: 348.4 cm/sec2 Ao V2 max: 124.3 cm/sec MV max P.9 mmHg Ao max P.2 mmHg MV V2 mean: 41.9 cm/sec Ao V2 mean: 84.5 cm/sec MV mean P.82 mmHg Ao mean P.3 mmHg MV V2 VTI: 24.1 cm Ao V2 VTI: 27.0 cm MVA(VTI): 2.8 cm2 AV (velocity ratio): 0.78 NENA(I,D): 2.5 cm2 NENA(V,D): 2.5 cm2 LV V1 max: 97.6 cm/sec SV(LVOT): 67.5 ml PA V2 max: 96.4 cm/sec LV V1 max P.8 mmHg PA V2 mean: 64.1 cm/sec LV V1 mean P.9 mmHg LV V1 mean: 63.5 cm/sec LV V1 VTI: 21.1 cm ECHO/Echo Complete W/ Contrast Interpretation Summary Mild concentric left ventricular hypertrophy. The LV systolic function is normal. EF is 65 %. Stage 1 diastolic dysfunction. ___ Ordering Physician: Aarti Summers Referring Physician: Aarti Summers Performed By: Sejal Waite RCS 11/28/24 1209 Date Tucker Weber MD CC: Dr. Aarti Summers MD; Dr. Berta Head DO Date Dictated: 11/28/24935 Date Transcribed: 11/28/24 120 Rn Enterostomal: Signed Normal [facility] Echocardiogram study reportO rdered By: Tucker Weber on 11-28-2024 Study report [facility] [address] [place] [address] Echo Complete W/ Contrast 11/28/24935 MR#: [id number] Acct: [id number] Name: MARTINEZ TESFAYE FRITZ Rep #:[id number] : 1980 44 From: Tucker Weber MD Attending Dr: Dr. Aarti Summers MD Status: REG CLI Ordering Dr: Aarti Summers MD Date: Location: [facility] Sex: M C Admitted: Reason For Study Reason For Study: SOB Procedure This was a 2D Doppler, Color Flow transthoracic echocardiogram. The study was technically difficult. Contrast injection was performed. Exam performed in department. Left Ventricle Normal LV size. Mild concentric left ventricular hypertrophy. The LV systolic function is normal. EF is 65 %. Stage 1 diastolic dysfunction. Right Ventricle Normal right ventricle. Atria The left and right atria are normal. Mitral Valve Trivial mitral valve insufficiency. Tricuspid Valve Trivial tricuspid valve insufficiency. Aortic Valve Trisinus/trileaflet aortic valve. Pulmonic Valve The pulmonic valve is not well visualized. Great Vessels Normal sized aortic root. Pericardium/Pleural No pericardial effusion. Medication Diluted definity 1ml given slow IV push to enhance endocardial definition. MMode/2D Measurements & Calculations LVIDd: 4.6 cm IVSd: 1.2 cm LVOT diam: 2.0 cm LVIDs: 3.4 cm LVPWd: 0.98 cm FS: 25.0 % LVOT area: 3.2 cm2 Ao root diam: 2.8 cm LAV(MOD-bp): 37.8 ml LVAd ap4: 28.0 cm2 LAV(MOD-bp) Indexed: 17.1 ml/m2 LVLd ap4: 8.4 cm LAV(MOD-sp2): 19.8 ml EDV(MOD-sp4): 74.3 ml LAV(MOD-sp4): 48.0 ml EDV(sp4-el): 79.1 ml LVAs ap4: 16.5 cm2 LVLs ap4: 6.6 cm ESV(MOD-sp4): 33.4 ml ESV(sp4-el): 35.1 ml EF(MOD-sp4): 55.0 % EF(sp4-el): 55.6 % SV(MOD-sp4): 40.8 ml SV(sp4-el): 44.0 ml LA A4 area: 19.1 cm2 SI(MOD-sp4): 18.4 ml/m2 LA dimension(2D): 3.8 cm RA A4 area: 13.2 cm2 Time Measurements MV dec time: 0.18 sec Doppler Measurements & Calculations MV E max klaus: 63.7 cm/sec Lat Peak E' Klaus: 18.1 cm/sec Med Peak E' Klaus: 13.1 cm/sec MV A max klaus: 62.8 cm/sec E/E' lat: 3.5 E/E' med: 4.9 MV E/A: 1.0 MV V2 max: 68.6 cm/sec MV dec slope: 348.4 cm/sec2 Ao V2 max: 124.3 cm/sec MV max P.9 mmHg Ao max P.2 mmHg MV V2 mean: 41.9 cm/sec Ao V2 mean: 84.5 cm/sec MV mean P.82 mmHg Ao mean P.3 mmHg MV V2 VTI: 24.1 cm Ao V2 VTI: 27.0 cm MVA(VTI): 2.8 cm2 AV (velocity ratio): 0.78 NENA(I,D): 2.5 cm2 NENA(V,D): 2.5 cm2 LV V1 max: 97.6 cm/sec SV(LVOT): 67.5 ml PA V2 max: 96.4 cm/sec LV V1 max P.8 mmHg PA V2 mean: 64.1 cm/sec LV V1 mean P.9 mmHg LV V1 mean: 63.5 cm/sec LV V1 VTI: 21.1 cm ECHO/Echo Complete W/ Contrast Interpretation Summary Mild concentric left ventricular hypertrophy. The LV systolic function is normal. EF is 65 %. Stage 1 diastolic dysfunction. ___ Ordering Physician: Aarti Summers Referring Physician: Aarti Summers Performed By: Sejal Waite RCS 11/28/24 1209 Date _ Tucker Weber MD CC: Dr. Aarti Summers MD; Dr. Berta Head DO ~ Date Dictated: 11/28/2436 Date Transcribed: 11/28/241208 Rn Enterostomal: Signed [facility] Work Phone: Stress Reporton 11-28-2024 Stress Report [facility] [address] [place] [id number] MR#: [id number] Acct: [id number] Name: MARTINEZ TESFAYE Rep #: [id number] : 1980 44 From: Tucker Weber MD Primary Care: Dr. Berta Head DO Status: REG CLI Referring Dr: Aarti Summers MD Sex: M C Stress Test Report Date: 11/28/2024 Procedure: Exercise tolerance test/imaging study Indications: Dyspnea on exertion Consent: Per the patient Procedure: The patient exercised on a Blaise protocol for 10 minutes and 30 seconds achieving a peak heart rate of 184 bpm (103% predicted maximal heart rate) with a peak blood pressure 190/92 mmHg and a peak MET capacity of 13.4 METs. The baseline ECG demonstrated sinus rhythm. The peak exercise ECG showed downsloping ST depressions in inferior and lateral leads suggestive of ischemia. There were no cardiac dysrhythmias pretest, during exercise, or recovery. The functional capacity was considered excellent. There was no chest pain during exercise however patient did complain of dyspnea. The examination was discontinued secondary to target heart rate being achieved. The patient was injected with 14.7 mCi of technetium 99m Cardiolite and subsequently rest SPECT Cardiolite nuclear imaging was obtained in the horizontal long, vertical long, and short axis views. Post-exercise, the patient was injected with 44.8 mCi of technetium 99m Cardiolite and subsequently stress SPECT Cardiolite nuclear imaging was obtained in the horizontal long, vertical long, and short axis views. A gated Cardiolite study at peak stress was obtained. Rest and stress SPECT Cardiolite nuclear imaging status post realignment, normalization, and attenuation correction, demonstrates the appearance of relative uniform tracer uptake and myocardial perfusion appearing within normal limits. There is end systolic thickening and brightening. The gated Cardiolite study demonstrates myocardial thickening and inward wall motion. The reported LVEF is 60%. Impression: 1. Technically adequate (percent predicted maximal heart rate greater than 85%) exercise tolerance test 2. Peak exercise ECG with downsloping ST depressions in inferior and lateral leads, suggestive of ischemia 3. There were no cardiac dysrhythmias pretest, during exercise, or recovery 4. Rest and stress SPECT Cardiolite nuclear imaging demonstrate relative uniform tracer uptake and myocardial perfusion appearing within normal limits. 5. The gated Cardiolite study reports an LVEF of 60%. 6. With his positive exercise stress ECG but negative nuclear imaging, recommend another modalities such as coronary CT angiography for further evaluation for CAD. This note was generated with [employer] software. It may contain incorrect words, spelling, and punctuation that were not noted in checking the note before signing. 11/28/24 0935 Date Tucker Weber MD CC: Dr. Aarti Summers MD; Dr. Berta Head, DO Date Dictated: 11/28/24931 Date Transcribed: 11/28/24931 Rn Enterostomal: ADDIE Signed Normal [facility] CT CARDIAC SCORING WO IV CON TRASTon 09-24-2024 CT CARDIAC SCORING WO IV CONTRAST Interpreted By: Dick Bishop, STUDY: CT CARDIAC SCORING WO IV CONTRAST; 09/24/2024 8:50 am INDICATION: Signs/Symptoms:HTN CARDIAC SCREENING INTERMEDIATE CAD RISK. ,I10 Essential (primary) hypertension COMPARISON: None. ACCESSION NUMBER(S): [id number] ORDERING CLINICIAN: BERTA HEAD TECHNIQUE: Using prospective ECG gating, CT scan of the coronary arteries was performed without intravenous contrast. Coronary calcium scoring was performed according to the method of Agatston. FINDINGS: The score and distribution of calcium in the coronary arteries is as follows: LM 0 LAD 0 LCx 0 RCA 0 Total 0 The visualized mid/lower ascending thoracic aorta measures 3.4 cm in diameter. The heart is normal in size. No pericardial effusion is present. No gross evidence of mediastinal or hilar lymphadenopathy or masses is identified. The visualized segments of the lungs are normally expanded. The visualized subdiaphragmatic structures appear intact. IMPRESSION: 1. Coronary artery calcium score of 0*. *Coronary artery calcium scoring may be helpful in predicting the risk for future coronary heart disease events. According to the [employer] Clinical Expert Consensus Task Force, such testing provides important prognostic information in patients with more than one coronary heart disease risk factor. The coronary artery calcium score correlates with the annual risk of a non-fatal myocardial infarction or coronary heart disease . Coronary artery score Annual Risk 0-99 0.4% 100-399 1.3% >400 2.4% These three breakpoints correspond to lower, intermediate and high risk states for future coronary events. Such information should be used, along with appropriate clinical judgment, to make decisions regarding the intensity of risk factor management strategies to treat blood lipids and to modify other non-lipid coronary risk factors. Reference: [place] P et al. Circulation. 2007; 115:402-426 MACRO: None Signed by: Dick Bishop 09/24/2024 9:45 AM Dictation workstation: [id number] [facility] CT for calcium scoring WO co ntrast and CTA W contrast IV Heart and coronary arterieson 09-24-2024 1. Coronary artery calcium score of 0*. *Coronary artery calcium scoring may be helpful in predicting the risk for future coronary heart disease events. According to the [employer] Clinical Expert Consensus Task Force, such testing provides important prognostic information in patients with more than one coronary heart disease risk factor. The coronary artery calcium score correlates with the annual risk of a non-fatal myocardial infarction or coronary heart disease . Coronary artery score Annual Risk 0-99 0.4% 100-399 1.3% >400 2.4% These three breakpoints correspond to lower, intermediate and high risk states for future coronary events. Such information should be used, along with appropriate clinical judgment, to make decisions regarding the intensity of risk factor management strategies to treat blood lipids and to modify other non-lipid coronary risk factors. Reference: Lafayette P et al. Circulation. 2007; 115:402-426 MACRO: None Signed by: Dick Bishop 09/24/2024 9:45 AM Dictation workstation: [id number] [facility] Interpreted By: Dick Lopes, STUDY: CT CARDIAC SCORING WO IV CONTRAST; 09/24/2024 8:50 am INDICATION: Signs/Symptoms:HTN CARDIAC SCREENING INTERMEDIATE CAD RISK. ,I10 Essential (primary) hypertension COMPARISON: None. ACCESSION NUMBER(S): [id number] ORDERING CLINICIAN: BERTA HEAD TECHNIQUE: Using prospective ECG gating, CT scan of the coronary arteries was performed without intravenous contrast. Coronary calcium scoring was performed according to the method of Agatston. FINDINGS: The score and distribution of calcium in the coronary arteries is as follows: LM 0 LAD 0 LCx 0 RCA 0 Total 0 The visualized mid/lower ascending thoracic aorta measures 3.4 cm in diameter. The heart is normal in size. No pericardial effusion is present. No gross evidence of mediastinal or hilar lymphadenopathy or masses is identified. The visualized segments of the lungs are normally expanded. The visualized subdiaphragmatic structures appear intact. [facility] Dick Bishop MD - 09/24/2024 Interpreted By: Dick Bishop, STUDY: CT CARDIAC SCORING WO IV CONTRAST; 09/24/2024 8:50 am INDICATION: Signs/Symptoms:HTN CARDIAC SCREENING INTERMEDIATE CAD RISK. ,I10 Essential (primary) hypertension COMPARISON: None. ACCESSION NUMBER(S): [id number] ORDERING CLINICIAN: BERTA HEAD TECHNIQUE: Using prospective ECG gating, CT scan of the coronary arteries was performed without intravenous contrast. Coronary calcium scoring was performed according to the method of Agatston. FINDINGS: The score and distribution of calcium in the coronary arteries is as follows: LM 0 LAD 0 LCx 0 RCA 0 Total 0 The visualized mid/lower ascending thoracic aorta measures 3.4 cm in diameter. The heart is normal in size. No pericardial effusion is present. No gross evidence of mediastinal or hilar lymphadenopathy or masses is identified. The visualized segments of the lungs are normally expanded. The visualized subdiaphragmatic structures appear intact. IMPRESSION: 1. Coronary artery calcium score of 0*. *Coronary artery calcium scoring may be helpful in predicting the risk for future coronary heart disease events. According to the [employer] Clinical Expert Consensus Task Force, such testing provides important prognostic information in patients with more than one coronary heart disease risk factor. The coronary artery calcium score correlates with the annual risk of a non-fatal myocardial infarction or coronary heart disease . Coronary artery score Annual Risk 0-99 0.4% 100-399 1.3% >400 2.4% These three breakpoints correspond to lower, intermediate and high risk states for future coronary events. Such information should be used, along with appropriate clinical judgment, to make decisions regarding the intensity of risk factor management strategies to treat blood lipids and to modify other non-lipid coronary risk factors. Reference: [place] P et al. Circulation. 2007; 115:402-426 MACRO: None Signed by: Dick Bishop 09/24/2024 9:45 AM Dictation workstation: [id number] [facility] Work Phone: Radiology Study observation (narrative) [facility] Work Phone: CT for calcium scoring WO co ntrast and CTA W contrast IV Heart and coronary arteriesOrdered By: Dick Bishop on 09-24-2024 [facility] Work Phone: Quantiferon TB-Gold+on 04-03 QFT MITOGEN MELVINA > 10.00 Normal . [facility] Comment on above: Performed By: #### L 3400.8000 #### [facility] [address] [place], [place], [id number] QFT NIL VALUE 0.01 IU/mL Normal . [facility] Comment on above: Performed By: #### L 3400.8000 #### [facility] [address] [place], [place], [id number] (250) QFT TB GOLD+ Comment Normal . [facility] Comment on above: Result Comment: Sadaf tiFERON-TB Gold Plus is a qualitative indirect test for M tuberculosis infection (including disease) and is intended for use in conjunction with risk assessment, radiography, and other medical and diagnostic evaluations. The QuantiFERON-TB Gold Plus result is determined by subtracting the Nil value from either TB antigen (Ag) value. The Mitogen tube serves as a control for the test. Performed By: #### L 3400.8000 #### [facility] [address] [place], [place], [id number] QFT TB POS CRIT Negative Normal Negative [facility] Comment on above: Result Comment: No r esponse to M tuberculosis antigens detected. Infection with M tuberculosis is unlikely, but high risk individuals should be considered for additional testing (ATS/IDSA/CDC Clinical Practice Guidelines, 2017). The reference range is an Antigen minus Nil result of <0.35 IU/mL. The specimen received for QuantiFERON testing was incubated by the ordering institution. Specific procedures outlined in our Directory of Services and in the package insert for the QuantiFERON Gold (In Tube) test must be followed to enable for proper stimulation of cells for the production of interferon gamma. Chemiluminescence immunoassay methodology Performed at: [facility] [id number] Wood Panel Inspector: Yrn Galeas PhD, Phone: [phone] Performed By: #### L 3400.8000 #### [facility] [address] [place], [place], [id number] QFT TB1+ AG MELVINA 0.01 IU/mL Normal . [facility] Comment on above: Performed By: #### L 3400.8000 #### [facility] [address] [place], [address] QFT TB2+ AG MELVINA 0.01 IU/mL Normal . [facility] Comment on above: Performed By: #### L 3400.8000 #### [facility] [address] [place], [address] CBC W/Diff, Automatedon 07-07 26-2023 Absolute Lymph 2.71 X10 3/uL Normal 0.83-4.51 [facility] Comment on above: Performed By: #### L 100.0100, L501.9520, L506.1000, L500.4050, L500.4100 #### [facility] [address] [place], [address] Absolute Neut 6.8 X10 3/uL Normal 2.0-7.7 [facility] Comment on above: Performed By: #### L 100.0100, L501.9520, L506.1000, L500.4050, L500.4100 #### [facility] [address] [place], [address] Basophils/100 WBC (Bld) 0.8 % Normal 0-1 [facility] Comment on above: Performed By: #### L 100.0100, L501.9520, L506.1000, L500.4050, L500.4100 #### [facility] [address] [place], [address] Eosinophils/100 WBC (Bld) 5.1 % High 0-5 [facility] Comment on above: Performed By: #### L 100.0100, L501.9520, L506.1000, L500.4050, L500.4100 #### [facility] [address] [place], [address] Erythrocyte distribution width (RBC) [Ratio] 13.0 % Normal 11.6-14.6 [facility] Comment on above: Performed By: #### L 100.0100, L501.9520, L506.1000, L500.4050, L500.4100 #### [facility] [address] [place], [address] Hematocrit (Bld) [Volume fraction] 48.2 % Normal 40-54 [facility] Comment on above: Performed By: #### L 100.0100, L501.9520, L506.1000, L500.4050, L500.4100 #### [facility] [address] [place], [address] Hemoglobin (Bld) [Mass/Vol] 15.7 g/dL Normal 13.0-16.5 [facility] Comment on above: Performed By: #### L 100.0100, L501.9520, L506.1000, L500.4050, L500.4100 #### [facility] [address] [place], [address] IG% 0.400 Normal 0.0-0.9 [facility] Comment on above: Result Comment: IG% - Immature Granulocytes (promyelocytes, myelocytes and metamyelocytes) > 1% indicates that a LEFT SHIFT is Present. Performed By: #### L 100.0100, L501.9520, L506.1000, L500.4050, L500.4100 #### [facility] [address] [place], [address] Lymphocytes/100 WBC (Bld) 24.6 % Normal 19-41 [facility] Comment on above: Performed By: #### L 100.0100, L501.9520, L506.1000, L500.4050, L500.4100 #### [facility] [address] [place], [address] MCH (RBC) [Entitic mass] 28.1 pg Normal 27.0-32.0 [facility] Comment on above: Performed By: #### L 100.0100, L501.9520, L506.1000, L500.4050, L500.4100 #### [facility] [address] [place], [address] MCHC (RBC) [Mass/Vol] 32.6 g/dL Normal 32-36 [facility] Comment on above: Performed By: #### L 100.0100, L501.9520, L506.1000, L500.4050, L500.4100 #### [facility] [address] [place], [address] MCV (RBC) [Entitic vol] 86.2 fL Normal 80-94 [facility] Comment on above: Performed By: #### L 100.0100, L501.9520, L506.1000, L500.4050, L500.4100 #### [facility] [address] [place], [address] Monocytes/100 WBC (Bld) 7.2 % Normal 0-10 [facility] Comment on above: Performed By: #### L 100.0100, L501.9520, L506.1000, L500.4050, L500.4100 #### [facility] [address] [place], [address] Neutrophils/100 WBC (Bld) 61.9 % Normal 47-70 [facility] Comment on above: Performed By: #### L 100.0100, L501.9520, L506.1000, L500.4050, L500.4100 #### [facility] [address] [place], [address] Nucleated RBC (Bld) [#/Vol] 0 10*3/uL Normal 0-5 [facility] Comment on above: Performed By: #### L 100.0100, L501.9520, L506.1000, L500.4050, L500.4100 #### [facility] [address] [place], [address] Platelet mean volume (Bld) [Entitic vol] 11.3 fL Normal 6.2-12.0 [facility] Comment on above: Performed By: #### L 100.0100, L501.9520, L506.1000, L500.4050, L500.4100 #### [facility] [address] [place], [address] Platelets (Bld) [#/Vol] 362 10*3/uL Normal 150-450 [facility] Comment on above: Performed By: #### L 100.0100, L501.9520, L506.1000, L500.4050, L500.4100 #### [facility] [address] [place], [address] RBC (Bld) [#/Vol] 5.59 10*6/uL Normal 4.6-6.2 [facility] Comment on above: Performed By: #### L 100.0100, L501.9520, L506.1000, L500.4050, L500.4100 #### [facility] [address] [place], [address] RDW SD 40.6 fl Normal 35.1-43.9 [facility] Comment on above: Performed By: #### L 100.0100, L501.9520, L506.1000, L500.4050, L500.4100 #### [facility] [address] [place], [address] WBC (Bld) [#/Vol] 11.0 10*3/uL Normal 4.4-11.0 [facility] Comment on above: Performed By: #### L 100.0100, L501.9520, L506.1000, L500.4050, L500.4100 #### [facility] [address] [place], [address] Comprehensive Metabolic Prof il02-03-2024 Albumin [Mass/Vol] 3.7 g/dL Normal 3.2-5.0 [facility] Comment on above: Performed By: #### L 100.0100, L501.9520, L506.1000, L500.4050, L500.4100 #### [facility] [address] [place], [address] Albumin/Globulin [Mass ratio] 0.9 {ratio} Normal 0.9-2.4 [facility] Comment on above: Performed By: #### L 100.0100, L501.9520, L506.1000, L500.4050, L500.4100 #### [facility] [address] [place], [address] ALK P 86 U/L Normal 45-117 [facility] Comment on above: Performed By: #### L 100.0100, L501.9520, L506.1000, L500.4050, L500.4100 #### [facility] [address] [place], [address] ALT [Catalytic activity/Vol] 29 U/L Normal 16-61 [facility] Comment on above: Performed By: #### L 100.0100, L501.9520, L506.1000, L500.4050, L500.4100 #### [facility] [address] [place], [address] AST [Catalytic activity/Vol] 13 U/L Low 15-37 [facility] Comment on above: Performed By: #### L 100.0100, L501.9520, L506.1000, L500.4050, L500.4100 #### [facility] [address] [place], [address] Bilirubin [Mass/Vol] 0.60 mg/dL Normal 0.20-1.00 [facility] Comment on above: Result Comment: For patients on eltrombopag therapy, use of Dimension Maskell TBIL is not recommended. Performed By: #### L 100.0100, L501.9520, L506.1000, L500.4050, L500.4100 #### [facility] [address] [place], [address] BUN/CRE 13.8 RATIO Normal 10-20 [facility] Comment on above: Performed By: #### L 100.0100, L501.9520, L506.1000, L500.4050, L500.4100 #### [facility] [address] [place], [address] CA,Total 9.2 mg/dL Normal 8.5-10.1 [facility] Comment on above: Performed By: #### L 100.0100, L501.9520, L506.1000, L500.4050, L500.4100 #### [facility] [address] [place], [address] Chloride [Moles/Vol] 110 mmol/L High 98-107 [facility] Comment on above: Performed By: #### L 100.0100, L501.9520, L506.1000, L500.4050, L500.4100 #### [facility] [address] [place], [address] CO2 [Moles/Vol] 24.0 mmol/L Normal 21.0-32.0 [facility] Comment on above: Performed By: #### L 100.0100, L501.9520, L506.1000, L500.4050, L500.4100 #### [facility] [address] [place], [address] Creatinine [Mass/Vol] 0.94 mg/dL Normal 0.70-1.30 [facility] Comment on above: Result Comment: The validity of the calculated GFR GFRAA in patients over 70 years has not been determined. Clinical correlation is essential. Performed By: #### L 100.0100, L501.9520, L506.1000, L500.4050, L500.4100 #### [facility] [address] [place], [address] EST GFR - AA 113 mL/min Normal >60 [facility] Comment on above: Result Comment: Afri can [place] GFR Calc Performed By: #### L 100.0100, L501.9520, L506.1000, L500.4050, L500.4100 #### [facility] [address] [place], [address] GAP 4 Low 5-15 [facility] Comment on above: Performed By: #### L 100.0100, L501.9520, L506.1000, L500.4050, L500.4100 #### [facility] [address] [place], [address] GFR/1.73 sq M.predicted among non-blacks MDRD (S/P/Bld) [Vol rate/Area] 93 mL/min/{1.73_m2} Normal >60 [facility] Comment on above: Result Comment: Non- GFR Calc Performed By: #### L 100.0100, L501.9520, L506.1000, L500.4050, L500.4100 #### [facility] [address] [place], [address] Globulin (S) [Mass/Vol] 4.2 g/dL Normal 2.2-4.2 [facility] Comment on above: Performed By: #### L 100.0100, L501.9520, L506.1000, L500.4050, L500.4100 #### [facility] [address] [place], [address] Glucose [Mass/Vol] 102 mg/dL Normal 74-106 [facility] Comment on above: Result Comment: Fast ing Glucose result from 100 to 125 mg/dL suggests IMPAIRED HOMEOSTASIS per A.D.A. criteria. Performed By: #### L 100.0100, L501.9520, L506.1000, L500.4050, L500.4100 #### [facility] [address] [place], [address] Potassium [Moles/Vol] 4.3 mmol/L Normal 3.5-5.1 [facility] Comment on above: Performed By: #### L 100.0100, L501.9520, L506.1000, L500.4050, L500.4100 #### [facility] [address] [place], [address] Sodium [Moles/Vol] 138 mmol/L Normal 136-145 [facility] Comment on above: Performed By: #### L 100.0100, L501.9520, L506.1000, L500.4050, L500.4100 #### [facility] [address] [place], [address] T PROT 7.9 g/dL Normal 6.4-8.2 [facility] Comment on above: Performed By: #### L 100.0100, L501.9520, L506.1000, L500.4050, L500.4100 #### [facility] [address] [place], [address] Urea nitrogen [Mass/Vol] 13 mg/dL Normal 7-18 [facility] Comment on above: Performed By: #### L 100.0100, L501.9520, L506.1000, L500.4050, L500.4100 #### [facility] [address] [place], [address] Lipid Profileon 02-03-2024 Cholesterol [Mass/Vol] 155 mg/dL Normal 200 [facility] Comment on above: Result Comment: <200 mg/dL Desirable 200-240 mg/dL Borderline >240 mg/dL High Risk Performed By: #### L 100.0100, L501.9520, L506.1000, L500.4050, L500.4100 #### [facility] [address] [place], [address] Cholesterol in HDL [Mass/Vol] 44 mg/dL Normal [facility] Comment on above: Result Comment: The drugs N-Acetylcysteine and Metamizole may falsely depress this assay. Reference Range HDL <40 mg/dL Low HDL Cholesterol HDL >or= 60 mg/dL High HDL Cholesterol Performed By: #### L 100.0100, L501.9520, L506.1000, L500.4050, L500.4100 #### [facility] [address] [place], [address] Cholesterol in LDL [Mass/Vol] 86 mg/dL Normal 0-130 [facility] Comment on above: Performed By: #### L 100.0100, L501.9520, L506.1000, L500.4050, L500.4100 #### [facility] [address] [place], [address] Cholesterol in VLDL [Mass/Vol] 25 mg/dL Normal 5-40 [facility] Comment on above: Performed By: #### L 100.0100, L501.9520, L506.1000, L500.4050, L500.4100 #### [facility] [address] [place], [address] Triglyceride [Mass/Vol] 124 mg/dL Normal [facility] Comment on above: Result Comment: The drugs N-Acetylcysteine and Metamizole may falsely depress this assay. Serum Triglycerides Reference Interval Normal <150 mg/dL Borderline high 150 - 199 mg/dL High 200 - 499 mg/dL Very High > or = 500 mg/dL Performed By: #### L 100.0100, L501.9520, L506.1000, L500.4050, L500.4100 #### [facility] [address] [place], [address] Thyroid Stim Hormone (TSH)on 02-03-2024 TSH 1.32 uIU/mL Normal 0.358-3.74 [facility] Comment on above: Performed By: #### L 100.0100, L501.9520, L506.1000, L500.4050, L500.4100 #### [facility] [address] [place], [place], [address] Vitamin D,25 Hydroxyon 02-02 Vitamin D 25-OH 29.6 ng/mL Normal [facility] Comment on above: Result Comment: Celi min D 25(OH) Status Range Deficiency <20 ng/mL (50nmol/L) Insufficiency 20 - 30 ng/mL (50 - 75 nmol/L) Sufficiency 30 - 100 ng/mL (75 - 250 nmol/L) Toxicity >100 ng/mL (>250 nmol/L) Performed By: #### L 100.0100, L501.9520, L506.1000, L500.4050, L500.4100 #### [facility] [address] [place], [place], [id number] Basophil percentageOrdered B y: Berta Head on 07-14-2023 Basophil percentage 0 SEEN /hpf 0-5 [facility] Bilirubin Test strip Ql (U)O rdered By: Berta Head on 07-14-2023 Bilirubin Ql (U) Negative Negative [facility] Erythrocyte sedimentation ra teOrdered By: Berta Head on 07-14-2023 ESR (Bld) [Velocity] 27 mm/h 0-20 [facility] Ketones Test strip Ql (U)Ord ered By: Berta Head on 07-14-2023 Ketones Ql (U) 5 mg/dl Negative [facility] Mucus LM Ql (Urine sed)Order ed By: Berta Head on 07-14-2023 Mucus Ql (Urine sed) 0 SEEN /hpf [facility] Nitrite Test strip Ql (U)Ord ered By: Berta Head on 07-14-2023 Nitrite Ql (U) Negative Negative [facility] No Panel InformationOrdered By: Berta Head on 07-14-2023 C-Reactive Protein High Sensitivity 5.74 mg/L <3.00 [facility] Comment on above: Low Relative Risk of CVD <1.0 mg/L Average Relative Risk of CVD 1.0 - 3.0 mg/L High Relative Risk of CVD >3.0 mg/L Protein Test strip Ql (U)Ord ered By: Berta Head on 07-14-2023 Protein Ql (U) Negative Negative [facility] Squamous epithelial cells de tection in urine sediment by light microscopyOrdered By: Berta Head on 07-14-2023 Epithelial cells.squamous LM Ql (Urine sed) 0-5 SEEN /hpf 0-5 [facility] Urine blood detectionOrdered By: Berta Head on 07-14-2023 RBC Ql (U) 25 /ul Negative [facility] RBC Ql (U) 0-5 SEEN /hpf 0-5 [facility] Urine clarityOrdered By: Nannette Head on 07-14-2023 Clarity (U) Clear Clear [facility] Urine color determinationOrd ered By: Berta Head on 07-14-2023 Color (U) Yellow Yellow [facility] Urine glucose detectionOrder ed By: Berta Head on 07-14-2023 Glucose Ql (U) Normal mg/dl Normal [facility] Urine leukocyte esterase det ection by dipstickOrdered By: Berta Head on 07-14-2023 Leukocyte esterase Test strip Ql (U) Negative Negative [facility] Urine pHOrdered By: Berta Head on 07-14-2023 pH (U) 5.0 [pH] 5.0 - 8.0 [facility] Urine sediment bacteria coun t by microscopy (number/high power field)Ordered By: Berta Head on 07-14-2023 Bacteria LM.HPF (Urine sed) [#/Area] 0 /[HPF] None Seen [facility] Urine specific gravity measu rementOrdered By: Berta Head on 07-14-2023 Specific gravity (U) [Rel density] 1.020 1.002-1.03 0 [facility] Urobilinogen Auto test strip Ql (U)Ordered By: Berta Head on 07-14-2023 Urobilinogen Ql (U) Normal mg/dl Normal [facility] Absolute lymphocyte countOrd ered By: Berta Head on 06-13-2023 Lymphocytes Auto (Unsp spec) [#/Vol] 2.01 10*3/uL 0.83-4.51 [facility] Basophil percentageOrdered B y: Berta Head on 06-13-2023 Basophil percentage 0-5 SEEN /hpf 0-5 [facility] Basophils/100 WBC (Bld) 0.5 % 0-1 [facility] Bilirubin [Mass/Vol] 0.50 mg/dL 0.20-1.00 [facility] Comment on above: For patients on eltr ombopag therapy, use of Dimension Maskell TBIL is not recommended. Chloride [Moles/Vol] 107 mmol/L 98-107 [facility] Cholesterol [Mass/Vol] 146 mg/dL <200 [facility] Comment on above: <200 mg/dL Desirable 200-240 mg/dL Borderline >240 mg/dL High Risk Eosinophils/100 WBC (Bld) 3.6 % 0-5 [facility] Glucose [Mass/Vol] 95 mg/dL 74-106 [facility] Neutrophils (Bld) [#/Vol] 6.9 10*3/uL 2.0-7.7 [facility] Neutrophils/100 WBC (Bld) 69.1 % 47-70 [facility] Potassium [Moles/Vol] 3.9 mmol/L 3.5-5.1 [facility] Protein [Mass/Vol] 8.1 g/dL 6.4-8.2 [facility] Sodium [Moles/Vol] 139 mmol/L 136-145 [facility] Triglyceride [Mass/Vol] 119 mg/dL <199 [facility] Comment on above: The drugs N-Acetylcy steine and Metamizole may falsely depress this assay.Serum Triglycerides Reference Interval Normal <150 mg/dL Borderline high 150 - 199 mg/dL High 200 - 499 mg/dL Very High > or = 500 mg/dL WBC (Bld) [#/Vol] 9.9 10*3/uL 4.4-11.0 [facility] Bilirubin Test strip Ql (U)O rdered By: Berta Head on 06-13-2023 Bilirubin Ql (U) 1 mg/dL Negative [facility] Comment on above: COLOR OF URINE MAY A FFECT DIPSTICK RESULTS. Blood erythrocytes count (nu mber/volume)Ordered By: Berta Head on 06-13-2023 RBC (Bld) [#/Vol] 5.34 10*6/uL 4.6-6.2 [facility] Blood hemoglobin measurement (mass/volume)Ordered By: Berta Head on 06-13-2023 Hemoglobin (Bld) [Mass/Vol] 15.2 g/dL 13.0-16.5 [facility] Blood lymphocytes/100 leukoc ytesOrdered By: Berta Head on 06-13-2023 Lymphocytes/100 WBC (Bld) 20.2 % 19-41 [facility] Blood monocytes/100 leukocyt esOrdered By: Berta Head on 06-13-2023 Monocytes/100 WBC (Bld) 6.4 % 0-10 [facility] Blood platelet mean volumeOr dered By: Berta Head on 06-13-2023 Platelet mean volume (Bld) [Entitic vol] 11.3 fL 6.2-12.0 [facility] Determination of erythrocyte mean corpuscular volume (MCV)Ordered By: Berta Head on 06-13-2023 MCV (RBC) [Entitic vol] 86.9 fL 80-94 [facility] Erythrocyte sedimentation ra teOrdered By: Berta Head on 06-13-2023 ESR (Bld) [Velocity] 28 mm/h 0-20 [facility] Hematocrit Auto (Bld) [Volum e fraction]Ordered By: Berta Head on 06-13-2023 Hematocrit (Bld) [Volume fraction] 46.4 % 40-54 [facility] Ketones Test strip Ql (U)Ord ered By: Berta Head on 06-13-2023 Ketones Ql (U) 5 mg/dl Negative [facility] Laboratory - Chemistry and C hemistry - challengeOrdered By: Berta Head on 06-13-2023 ALP [Catalytic activity/Vol] 82 U/L 45-117 [facility] ALT [Catalytic activity/Vol] 47 U/L 16-61 [facility] CO2 [Moles/Vol] 24.0 mmol/L 21.0-32.0 [facility] Cobalamin (Vitamin B12) [Mass/Vol] 443 pg/mL 211-911 [facility] Globulin (S) [Mass/Vol] 4.3 g/dL 2.2-4.2 [facility] Urea nitrogen/Creatinine [Mass ratio] 15.2 mg/mg 10-20 [facility] Laboratory - Hematology and Cell countsOrdered By: Berta Head on 06-13-2023 Erythrocyte distribution width (RBC) [Entitic vol] 40.6 fL 35.1-43.9 [facility] Erythrocyte distribution width (RBC) [Ratio] 13.0 % 11.6-14.6 [facility] Immature granulocytes/100 WBC (Bld) 0.200 % 0.0-0.9 [facility] Comment on above: IG% - Immature Granu locytes (promyelocytes, myelocytes and metamyelocytes) > 1% indicates that a LEFT SHIFT is Present. MCH (RBC) [Entitic mass] 28.5 pg 27.0-32.0 [facility] Nucleated RBC/100 WBC (Bld) [Ratio] 0 % 0-5 [facility] MCHC Auto (RBC) [Mass/Vol]Or dered By: Berta Head on 06-13-2023 MCHC (RBC) [Mass/Vol] 32.8 g/dL 32-36 [facility] Mucus LM Ql (Urine sed)Order ed By: Berta Head on 06-13-2023 Mucus Ql (Urine sed) 0 SEEN /hpf [facility] Nitrite Test strip Ql (U)Ord ered By: Berta Head on 06-13-2023 Nitrite Ql (U) Negative Negative [facility] No Panel InformationOrdered By: Berta Head on 06-13-2023 Anti-Nuclear Antibody Screen Negative Negative [facility] Comment on above: Performed at: [address] [id number] Director: Yrn Galeas PhD, Phone: [phone] Estimated GFR (MDRD) Amer 108 mL/min >60 [facility] Comment on above: GFR Calc Estimated GFR (MDRD) Non-Af Amer 89 mL/min >60 [facility] Comment on above: Non- GFR Calc Thyroid Stimulating Hormone (TSH) 0.92 uIU/mL 0.358-3.74 [facility] Urine Microalbumin/Creatini ne Ratio 17.4 mg/g CRE <30 [facility] Vitamin D 25-Hydroxy 26.6 ng/mL [facility] Comment on above: Vitamin D 25(OH) Sta tus Range Deficiency <20 ng/mL (50nmol/L) Insufficiency 20 - 30 ng/mL (50 - 75 nmol/L) Sufficiency 30 - 100 ng/mL (75 - 250 nmol/L) Toxicity >100 ng/mL (>250 nmol/L) Platelets bldOrdered By: Nannette Head on 06-13-2023 Platelets (Bld) [#/Vol] 370 10*3/uL 150-450 [facility] Protein Test strip Ql (U)Ord ered By: Berta Head on 06-13-2023 Protein Ql (U) 30 mg/dl Negative [facility] Serum or plasma C reactive p rotein measurement (mass/volume)Ordered By: Berta Head on 06-13-2023 CRP [Mass/Vol] 5.09 mg/L 0.0-3.0 [facility] Comment on above: C-Reactive Protein ( CRP) provides useful information for thediagnosis, therapy and monitoring of inflammatory processesand associated diseases. For the evaluation of Relative Riskfor Cardiovascular Disease, a High Sensitivity CRP (HSCRP)should be ordered. Serum or plasma albumin marija urement (mass/volume)Ordered By: Berta Head on 06-13-2023 Albumin [Mass/Vol] 3.8 g/dL 3.2-5.0 [facility] Serum or plasma albumin/glob ulin mass ratioOrdered By: Berta Head on 06-13-2023 Albumin/Globulin [Mass ratio] 0.9 {ratio} 0.9-2.4 [facility] Serum or plasma calcium marija urement (mass/volume)Ordered By: Berta Head on 06-13-2023 Calcium [Mass/Vol] 9.0 mg/dL 8.5-10.1 [facility] Serum or plasma cholesterol in HDL measurement (mass/volume)Ordered By: Berta Head on 06-13-2023 Cholesterol in HDL [Mass/Vol] 44 mg/dL >40 [facility] Comment on above: The drugs N-Acetylcy steine and Metamizole may falsely depress this assay. Reference Range HDL <40 mg/dL Low HDL Cholesterol HDL >or= 60 mg/dL High HDL Cholesterol Serum or plasma cholesterol in VLDL measurement (mass/volume)Ordered By: Berta Head on 06-13-2023 Cholesterol in VLDL [Mass/Vol] 24 mg/dL 5-40 [facility] Serum or plasma creatinine m easurement (mass/volume)Ordered By: Berta Head on 06-13-2023 Creatinine [Mass/Vol] 0.98 mg/dL 0.70-1.30 [facility] Comment on above: The validity of the calculated GFR & GFRAA in patients over 70 years has not been determined. Clinical correlation is essential. Serum or plasma folate measu rement (mass/volume)Ordered By: Berta Head on 06-13-2023 Folate [Mass/Vol] 5.90 ng/mL 3.1-55.4 [facility] Serum or plasma low density lipoprotein (LDL) cholesterol measurement (mass/volume)Ordered By: Berta Head on 06-13-2023 Cholesterol in LDL [Mass/Vol] 78 mg/dL 0-130 [facility] Serum or plasma urea nitroge n measurement (mass/volume)Ordered By: Berta Head on 06-13-2023 Urea nitrogen [Mass/Vol] 15 mg/dL 7-18 [facility] Serum rheumatoid factor dete ctionOrdered By: Berta Head on 06-13-2023 Rheumatoid factor Ql (S) < 10.0 IU/mL <15 [facility] Squamous epithelial cells de tection in urine sediment by light microscopyOrdered By: Berta Head on 06-13-2023 Epithelial cells.squamous LM Ql (Urine sed) 0 SEEN /hpf 0-5 [facility] Thin prep Papanicolaou smear with manual screeningOrdered By: Berta Head on 11-21-2023 Thin prep Papanicolaou smear with manual screening 17 U/L 15-37 [facility] Thin prep Papanicolaou smear with manual screening 8 5-15 [facility] Thin prep Papanicolaou smear with manual screening 56.4 mg/L NO RANGE EST. [facility] Urine blood detectionOrdered By: Berta Head on 06-13-2023 RBC Ql (U) 50 /ul Negative [facility] RBC Ql (U) 0 SEEN /hpf 0-5 [facility] Urine clarityOrdered By: Nannette Head on 06-13-2023 Clarity (U) Clear Clear [facility] Urine color determinationOrd ered By: Berta Head on 06-13-2023 Color (U) Yellow Yellow [facility] Urine creatinine measurement (mass/volume)Ordered By: Berta Head on 06-13-2023 Creatinine (U) [Mass/Vol] 324.00 mg/dL NO RANGE EST. [facility] Urine glucose detectionOrder ed By: Berta Head on 06-13-2023 Glucose Ql (U) Normal mg/dl Normal [facility] Urine leukocyte esterase det ection by dipstickOrdered By: Berta Head on 06-13-2023 Leukocyte esterase Test strip Ql (U) 25 /ul Negative [facility] Urine pHOrdered By: Berta Head on 06-13-2023 pH (U) 5.0 [pH] 5.0 - 8.0 [facility] Urine sediment bacteria coun t by microscopy (number/high power field)Ordered By: Berta Head on 06-13-2023 Bacteria LM.HPF (Urine sed) [#/Area] 0 /[HPF] None Seen [facility] Urine specific gravity measu rementOrdered By: Berta Head on 06-13-2023 Specific gravity (U) [Rel density] 1.025 1.002-1.03 0 [facility] Urobilinogen Auto test strip Ql (U)Ordered By: Berta Head on 06-13-2023 Urobilinogen Ql (U) 1 mg/dl Normal [facility] Urine Drug Screen -Medicare (Office - Urine Drug Screen 9 Panel) ([id number])Ordered By: Billie Collier on 04-07-2023 Barbiturates Ql (S/P/Bld) Negative Normal [facility]; [facility] Work Phone: Benzodiazepines Ql (U) Negative Normal [facility]; [facility] Work Phone: Benzoylecgonine Confirm Ql Negative Normal [facility]; [facility] Work Phone: Cannabinoids Confirm Ql (U) Negative Normal [facility]; [facility] Work Phone: Methadone [Mass/Vol] Negative Normal [facility] rehens[facility]; [facility] Work Phone: Methamphetamine Ql Positive Normal Compre [facility]; [facility] Work Phone: Opiates Ql (U) Negative Normal [facility]; [facility] Work Phone: CBC W/AUTO DIFF WBC ([id number])O rdered By: Sampler Tester on 06-03-2022 Basophils (Bld) [#/Vol] 0.1 10*3/uL Normal 0.0-0.2 [facility]; [facility] Work Phone: Basophils/100 WBC (Bld) 1 % Normal [facility]; [facility] Work Phone: Eosinophils (Bld) [#/Vol] 0.3 10*3/uL Normal 0.0-0.4 [facility]; [facility] Work Phone: Eosinophils/100 WBC (Bld) 3 % Normal [facility]; [facility] Work Phone: Erythrocyte distribution width (RBC) [Ratio] 13.2 % Normal 11.6-15.4 [facility]; [facility] Work Phone: Hematocrit (Bld) [Volume fraction] 45.2 % Normal 37.5-51.0 [facility]; [facility] Work Phone: Hemoglobin (Bld) [Mass/Vol] 15.2 g/dL Normal 13.0-17.7 [facility]; [facility] Work Phone: Immature granulocytes (Bld) [#/Vol] 0.1 10*3/uL Normal 0.0-0.1 [facility]; [facility] Work Phone: Immature granulocytes/100 WBC (Bld) 1 % Normal [facility]; [facility] Work Phone: Lymphocytes (Bld) [#/Vol] 2.6 10*3/uL Normal 0.7-3.1 [facility]; [facility] Work Phone: Lymphocytes/100 WBC (Bld) 25 % Normal [facility]; [facility] Work Phone: MCH (RBC) [Entitic mass] 28.7 pg Normal 26.6-33.0 [facility]; [facility] Work Phone: MCHC (RBC) [Mass/Vol] 33.6 g/dL Normal 31.5-35.7 [facility] pre[facility]; [facility] Work Phone: MCV (RBC) [Entitic vol] 85 fL Normal 79-97 [facility]; [facility] Work Phone: Monocytes (Bld) [#/Vol] 0.7 10*3/uL Normal 0.1-0.9 [facility]; [facility] Work Phone: Monocytes/100 WBC (Bld) 7 % Normal [facility]; [facility] Work Phone: Neutrophils (Bld) [#/Vol] 6.5 10*3/uL Normal 1.4-7.0 [facility]; [facility] Work Phone: Neutrophils/100 WBC (Bld) 63 % Normal [facility]; [facility] Work Phone: Platelets (Bld) [#/Vol] 326 10*3/uL Normal 150-450 [facility]; [facility] Work Phone: RBC (Bld) [#/Vol] 5.30 10*6/uL Normal 4.14-5.80 [facility] ehensive [facility]; [facility] Work Phone: WBC (Bld) [#/Vol] 10.2 10*3/uL Normal 3.4-10.8 [facility]; [facility] Work Phone: LIPID PANEL ([id number])Ordered B y: Sampler Tester on 06-03-2022 Cholesterol [Mass/Vol] 155 mg/dL Normal 100-199 [facility]; [facility] Work Phone: Cholesterol in HDL [Mass/Vol] 47 mg/dL Normal [facility]; [facility] Work Phone: Triglyceride [Mass/Vol] 112 mg/dL Normal 0-149 [facility]; [facility] Work Phone: LIPID PANEL ([id number]) 20 mg/dL Normal 5-40 [facility]; [facility] Work Phone: LIPID PANEL ([id number]) 88 mg/dL Normal 0-99 [facility]; [facility] Work Phone: LIPID PANEL ([id number]) 1.9 {ratio} Normal 0.0-3.6 [facility]; [facility] Work Phone: METABOLIC PANEL, COMPREHENSI VE ([id number])Ordered By: Sampler Tester on 06-03-2022 Albumin [Mass/Vol] 4.5 g/dL Normal 4.0-5.0 [facility]; [facility] Work Phone: Albumin/Globulin [Mass ratio] 1.6 {ratio} Normal 1.2-2.2 [facility]; [facility] Work Phone: ALP [Catalytic activity/Vol] 82 U/L Normal 44-121 [facility]; [facility] Work Phone: ALT [Catalytic activity/Vol] 43 U/L Normal 0-44 [facility]; [facility] Work Phone: AST [Catalytic activity/Vol] 18 U/L Normal 0-40 [facility]; [facility] Work Phone: Bilirubin [Mass/Vol] 0.4 mg/dL Normal 0.0-1.2 [facility]; [facility] Work Phone: Calcium [Mass/Vol] 9.5 mg/dL Normal 8.7-10.2 [facility] Work Phone: Chloride [Moles/Vol] 103 mmol/L Normal 96-106 [facility] rehensive [facility]; [facility] Work Phone: CO2 [Moles/Vol] 22 mmol/L Normal 20-29 [facility]; [facility] Work Phone: Creatinine [Mass/Vol] 0.91 mg/dL Normal 0.76-1.27 [facility]; [facility] Work Phone: Globulin (S) [Mass/Vol] 2.9 g/dL Normal 1.5-4.5 [facility]; [facility] Work Phone: Glucose [Mass/Vol] 89 mg/dL Normal 70-99 [facility]; [facility] Work Phone: Potassium [Moles/Vol] 4.7 mmol/L Normal 3.5-5.2 [facility]; [facility] Work Phone: Protein [Mass/Vol] 7.4 g/dL Normal 6.0-8.5 [facility]; [facility] Work Phone: Sodium [Moles/Vol] 142 mmol/L Normal 134-144 [facility]; [facility] Work Phone: Urea nitrogen [Mass/Vol] 12 mg/dL Normal 6-20 [facility]; [facility] Work Phone: Urea nitrogen/Creatinine [Mass ratio] 13 mg/mg Normal 9-20 [facility]; [facility] Work Phone: METABOLIC PANEL, COMPREHENSIVE ([id number]) 110 mL/min/1.73 Normal [facility]; [facility] Work Phone: MICROALBUMINOrdered By: Syst em Research Laboratory Specialist on 06-03-2022 Albumin DL <= 20 mg/L (U) [Mass/Vol] 29.8 ug/mL Normal [facility]; [facility] Work Phone: Albumin/Creatinine (U) [Mass ratio] 16 {mg/g_creat} Normal 0-29 [facility]; [facility] Work Phone: Creatinine (U) [Mass/Vol] 184.8 mg/dL Normal [facility]; [facility] Work Phone: TSH ([id number])Ordered By: [facility] m Research Laboratory Specialist on 06-03-2022 TSH Qn 1.520 {uIU/mL} Normal 0.450-4.50 0 [facility]; [facility] Work Phone: URINALYSIS, W/ MICRO ([id number]) Ordered By: Sampler Tester on 06-03-2022 Appearance (U) Clear Normal [facility]; [facility] Work Phone: Bilirubin Ql (U) Negative Normal [facility]; [facility] Work Phone: Color (U) Yellow Normal [facility]; [facility] Work Phone: Glucose Ql (U) Negative Normal [facility]; [facility] Work Phone: Hemoglobin Ql (U) Negative Normal [facility]; [facility] Work Phone: Ketones Ql (U) Negative Normal [facility]; [facility] Work Phone: Leukocyte esterase Test strip Ql (U) Negative Normal [facility]; [facility] Work Phone: Microscopic observation LM Nom (Urine sed) MICRON Normal [facility]; [facility] Work Phone: Microscopic observation LM Nom (Urine sed) See below: Normal [facility]; [facility] Work Phone: Nitrite Ql (U) Negative Normal [facility]; [facility] Work Phone: pH (U) 5.5 [pH] Normal 5.0-7.5 [facility]; [facility] Work Phone: Protein Ql (U) Negative Normal [facility]; [facility] Work Phone: Specific gravity (U) [Rel density] 1.023 1 Normal 1.005-1.03 0 [facility]; [facility] Work Phone: Urobilinogen (U) [Mass/Vol] 0.2 mg/dL Normal 0.2-1.0 [facility]; [facility] Work Phone: ALEXA (ANTINUCLEAR ANTIBODY) ( [id number])Ordered By: Sampler Tester on 10-22-2021 Nuclear Ab Ql (S) Negative Normal [facility]; [facility] Work Phone: C-REACTIVE PROTEIN ([id number])Or dered By: Sampler Tester on 10-22-2021 CRP [Mass/Vol] 5 mg/L Normal 0-10 [facility]; [facility] Work Phone: CALCIFIDIOL ([id number]) VIT D 25 Ordered By: Sampler Tester on 10-22-2021 25-hydroxyvitamin D [Mass/Vol] 24.6 ng/mL Abnormal 30.0-100.0 [facility]; [facility] Work Phone: CBC (AUTO) ([id number])Ordered By : Sampler Tester on 10-22-2021 Erythrocyte distribution width (RBC) [Ratio] 13.5 % Normal 11.6-15.4 [facility]; [facility] Work Phone: Hematocrit (Bld) [Volume fraction] 44.9 % Normal 37.5-51.0 [facility]; [facility] Work Phone: Hemoglobin (Bld) [Mass/Vol] 15.3 g/dL Normal 13.0-17.7 [facility]; [facility] Work Phone: MCH (RBC) [Entitic mass] 29.4 pg Normal 26.6-33.0 [facility]; [facility] Work Phone: MCHC (RBC) [Mass/Vol] 34.1 g/dL Normal 31.5-35.7 [facility] pre[facility]; [facility] Work Phone: MCV (RBC) [Entitic vol] 86 fL Normal 79-97 [facility]; [facility] Work Phone: Platelets (Bld) [#/Vol] 267 10*3/uL Normal 150-450 [facility]; [facility] Work Phone: RBC (Bld) [#/Vol] 5.20 10*6/uL Normal 4.14-5.80 [facility]; [facility] Work Phone: WBC (Bld) [#/Vol] 8.9 10*3/uL Normal 3.4-10.8 [facility]; [facility] Work Phone: Folate ([id number])Ordered By: Sy stem Research Laboratory Specialist on 10-22-2021 Folate [Mass/Vol] 9.0 ng/mL [facility]; [facility] Work Phone: LIPID PANEL ([id number])Ordered B y: Sampler Tester on 10-22-2021 Cholesterol [Mass/Vol] 169 mg/dL Normal 100-199 [facility]; [facility] Work Phone: Cholesterol in HDL [Mass/Vol] 49 mg/dL Normal [facility]; [facility] Work Phone: Triglyceride [Mass/Vol] 107 mg/dL Normal 0-149 [facility]; [facility] Work Phone: LIPID PANEL ([id number]) 19 mg/dL Normal 5-40 [facility]; [facility] Work Phone: LIPID PANEL ([id number]) 101 mg/dL Abnormal 0-99 [facility]; [facility] Work Phone: LIPID PANEL ([id number]) 2.1 {ratio} Normal 0.0-3.6 [facility]; [facility] Work Phone: METABOLIC PANEL, COMPREHENSI VE ([id number])Ordered By: Sampler Tester on 10-22-2021 Albumin [Mass/Vol] 4.4 g/dL Normal 4.0-5.0 [facility]; [facility] Work Phone: Albumin/Globulin [Mass ratio] 1.4 {ratio} Normal 1.2-2.2 [facility]; [facility] Work Phone: ALP [Catalytic activity/Vol] 80 U/L Normal 44-121 [facility]; [facility] Work Phone: ALT [Catalytic activity/Vol] 55 U/L Abnormal 0-44 [facility]; [facility] Work Phone: AST [Catalytic activity/Vol] 27 U/L Normal 0-40 [facility]; [facility] Work Phone: Bilirubin [Mass/Vol] 0.5 mg/dL Normal 0.0-1.2 [facility]; [facility] Work Phone: Calcium [Mass/Vol] 9.6 mg/dL Normal 8.7-10.2 [facility]; [facility] Work Phone: Chloride [Moles/Vol] 105 mmol/L Normal 96-106 [facility] [facility] Internal Medicine; [facility] Internal Medicine Work Phone: CO2 [Moles/Vol] 23 mmol/L Normal 20-29 [facility] Internal Medicine; [facility] Internal Medicine Work Phone: Creatinine [Mass/Vol] 0.96 mg/dL Normal 0.76-1.27 [facility] Internal Medicine; [facility] Internal Medicine Work Phone: Globulin (S) [Mass/Vol] 3.1 g/dL Normal 1.5-4.5 [facility] Internal Medicine; [facility] Internal Medicine Work Phone: Glucose [Mass/Vol] 87 mg/dL Normal 65-99 [facility] Internal Medicine; [facility] Internal Medicine Work Phone: Potassium [Moles/Vol] 4.9 mmol/L Normal 3.5-5.2 [facility] Internal Medicine; [facility] Internal Medicine Work Phone: Protein [Mass/Vol] 7.5 g/dL Normal 6.0-8.5 [facility] Internal Medicine; [facility] Internal Medicine Work Phone: Sodium [Moles/Vol] 143 mmol/L Normal 134-144 [facility] Internal Medicine; [facility] Internal Medicine Work Phone: Urea nitrogen [Mass/Vol] 11 mg/dL Normal 6-20 [facility]; [facility] Work Phone: Urea nitrogen/Creatinine [Mass ratio] 11 mg/mg Normal 9-20 [facility]; [facility] Work Phone: METABOLIC PANEL, COMPREHENSIVE ([id number]) 103 mL/min/1.73 Normal Comprehens [facility]; [facility] Work Phone: RHEUMATOID FACTOR-QUANT ([phone])Ordered By: Sampler Tester on 10-22-2021 Rheumatoid factor Qn [IU]/mL Normal Comp rehensive Internal Medicine; [facility] Work Phone: SED RATE ERYTHROCYTE ([id number]) Ordered By: Sampler Tester on 10-22-2021 ESR (Bld) [Velocity] 21 mm/h Abnormal 0-15 Comp rehensive [facility]; [facility] Work Phone: TSH ([id number])Ordered By: Benjamine m Research Laboratory Specialist on 10-22-2021 TSH Qn 1.080 {uIU/mL} Normal 0.450-4.50 0 [facility]; [facility] Work Phone: VITAMIN B-12 (CYANOCOBALAMIN ) ([id number])Ordered By: Sampler Tester on 10-22-2021 Cobalamin (Vitamin B12) [Mass/Vol] 585 pg/mL Normal 232-1245 [facility]; [facility] Work Phone: CBC W/AUTO DIFF WBC ([id number])O rdered By: Sampler Tester on 05-07-2021 Basophils (Bld) [#/Vol] 0.1 10*3/uL Normal 0.0-0.2 [facility]; [facility] Work Phone: Basophils/100 WBC (Bld) 1 % Normal [facility]; [facility] Work Phone: Eosinophils (Bld) [#/Vol] 0.4 10*3/uL Normal 0.0-0.4 [facility]; [facility] Work Phone: Eosinophils/100 WBC (Bld) 4 % Normal [facility]; [facility] Work Phone: Erythrocyte distribution width (RBC) [Ratio] 13.2 % Normal 11.6-15.4 [facility]; [facility] Work Phone: Hematocrit (Bld) [Volume fraction] 44.1 % Normal 37.5-51.0 [facility]; [facility] Work Phone: Hemoglobin (Bld) [Mass/Vol] 14.3 g/dL Normal 13.0-17.7 [facility]; [facility] Work Phone: Immature granulocytes (Bld) [#/Vol] 0.1 10*3/uL Normal 0.0-0.1 [facility]; [facility] Work Phone: Immature granulocytes/100 WBC (Bld) 1 % Normal [facility]; [facility] Work Phone: Lymphocytes (Bld) [#/Vol] 2.2 10*3/uL Normal 0.7-3.1 [facility]; [facility] Work Phone: Lymphocytes/100 WBC (Bld) 22 % Normal [facility]; [facility] Work Phone: MCH (RBC) [Entitic mass] 28.0 pg Normal 26.6-33.0 [facility]; [facility] Work Phone: MCHC (RBC) [Mass/Vol] 32.4 g/dL Normal 31.5-35.7 [facility] prehensive Internal Medicine; [facility] Work Phone: MCV (RBC) [Entitic vol] 86 fL Normal 79-97 [facility]; [facility] Work Phone: Monocytes (Bld) [#/Vol] 0.8 10*3/uL Normal 0.1-0.9 [facility]; [facility] Work Phone: Monocytes/100 WBC (Bld) 8 % Normal [facility]; [facility] Work Phone: Neutrophils (Bld) [#/Vol] 6.3 10*3/uL Normal 1.4-7.0 [facility]; [facility] Work Phone: Neutrophils/100 WBC (Bld) 64 % Normal [facility] Internal Medicine; [facility] Work Phone: Platelets (Bld) [#/Vol] 294 10*3/uL Normal 150-450 [facility] Internal Medicine; [facility] Work Phone: RBC (Bld) [#/Vol] 5.11 10*6/uL Normal 4.14-5.80 [facility] Internal Medicine; [facility] Internal Medicine Work Phone: WBC (Bld) [#/Vol] 9.7 10*3/uL Normal 3.4-10.8 [facility] Internal Medicine; [facility] Internal Medicine Work Phone: LIPID PANEL ([id number])Ordered B y: Sampler Tester on 05-07-2021 Cholesterol [Mass/Vol] 171 mg/dL Normal 100-199 [facility] Internal Medicine; [facility] Work Phone: Cholesterol in HDL [Mass/Vol] 47 mg/dL Normal [facility] Internal Medicine; [facility] Internal Medicine Work Phone: Triglyceride [Mass/Vol] 126 mg/dL Normal 0-149 [facility] Internal Medicine; [facility] Work Phone: LIPID PANEL ([id number]) 22 mg/dL Normal 5-40 [facility] Internal Medicine; [facility] Work Phone: LIPID PANEL ([id number]) 102 mg/dL Abnormal 0-99 [facility] Internal Medicine; [facility] Work Phone: LIPID PANEL ([id number]) 2.2 {ratio} Normal 0.0-3.6 [facility] Internal Medicine; [facility] Internal Medicine Work Phone: METABOLIC PANEL, COMPREHENSI VE ([id number])Ordered By: Sampler Tester on 05-07-2021 Albumin [Mass/Vol] 4.2 g/dL Normal 4.0-5.0 [facility] Internal Medicine; [facility] Internal Medicine Work Phone: Albumin/Globulin [Mass ratio] 1.4 {ratio} Normal 1.2-2.2 [facility] Internal Medicine; [facility] Internal Medicine Work Phone: ALP [Catalytic activity/Vol] 77 U/L Normal 44-121 [facility] Internal Medicine; [facility] Work Phone: ALT [Catalytic activity/Vol] 47 U/L Abnormal 0-44 [facility] Internal Medicine; [facility] Internal Medicine Work Phone: AST [Catalytic activity/Vol] 22 U/L Normal 0-40 [facility] Internal Medicine; [facility] Internal Medicine Work Phone: Bilirubin [Mass/Vol] 0.2 mg/dL Normal 0.0-1.2 [facility]; [facility] Internal Medicine Work Phone: Calcium [Mass/Vol] 9.3 mg/dL Normal 8.7-10.2 [facility] Internal Medicine; [facility] Internal Medicine Work Phone: Chloride [Moles/Vol] 106 mmol/L Normal 96-106 [facility] Internal Medicine; [facility] Internal Medicine Work Phone: CO2 [Moles/Vol] 20 mmol/L Normal 20-29 [facility] Internal Medicine; [facility] Internal Medicine Work Phone: Creatinine [Mass/Vol] 1.20 mg/dL Normal 0.76-1.27 [facility] Internal Medicine; [facility] Internal Medicine Work Phone: GFR/1.73 sq M.predicted among blacks CKD-EPI (S/P/Bld) [Vol rate/Area] 88 mL/min/1.73 Normal [facility] Internal Medicine; [facility] Internal Medicine Work Phone: GFR/1.73 sq M.predicted among non-blacks CKD-EPI (S/P/Bld) [Vol rate/Area] 76 mL/min/1.73 Normal [facility] Internal Medicine; [facility] Internal Medicine Work Phone: Globulin (S) [Mass/Vol] 3.1 g/dL Normal 1.5-4.5 [facility] Internal Medicine; [facility] Internal Medicine Work Phone: Glucose [Mass/Vol] 105 mg/dL Abnormal 65-99 [facility] Internal Medicine; [facility] Internal Medicine Work Phone: Potassium [Moles/Vol] 4.6 mmol/L Normal 3.5-5.2 Com prehensive Internal Medicine; [facility] Work Phone: Protein [Mass/Vol] 7.3 g/dL Normal 6.0-8.5 [facility]; [facility] Work Phone: Sodium [Moles/Vol] 140 mmol/L Normal 134-144 Compre hensive Internal Medicine; [facility] Work Phone: Urea nitrogen [Mass/Vol] 13 mg/dL Normal 6-20 [facility]; [facility] Work Phone: Urea nitrogen/Creatinine [Mass ratio] 11 mg/mg Normal 9-20 [facility]; [facility] Work Phone: MICROALBUMINOrdered By: [employer] Research Laboratory Specialist on 05-07-2021 Albumin DL <= 20 mg/L (U) [Mass/Vol] 8.4 ug/mL Normal [facility]; [facility] Work Phone: Albumin/Creatinine (U) [Mass ratio] 8 {mg/g_creat} Normal 0-29 [facility]; [facility] Work Phone: Creatinine (U) [Mass/Vol] 107.0 mg/dL Normal [facility]; [facility] Work Phone: TSH ([id number])Ordered By: [facility] m Research Laboratory Specialist on 05-07-2021 TSH Qn 1.190 {uIU/mL} Normal 0.450-4.50 0 [facility]; [facility] Work Phone: URINALYSIS, W/ MICRO ([id number]) Ordered By: Sampler Tester on 05-07-2021 Appearance (U) Clear Normal [facility]; [facility] Work Phone: Bilirubin Ql (U) Negative Normal Comprehe nsive Internal Medicine; [facility] Work Phone: Color (U) Yellow Normal [facility]; [facility] Work Phone: Glucose Ql (U) Negative Normal Comprehens [facility]; [facility] Work Phone: Hemoglobin Ql (U) Negative Normal Compreh ensive Internal Medicine; [facility] Work Phone: Ketones Ql (U) Negative Normal [facility]; [facility] Work Phone: Leukocyte esterase Test strip Ql (U) Negative Normal [facility]; [facility] Work Phone: Microscopic observation LM Nom (Urine sed) MICRON Normal [facility]; [facility] Work Phone: Microscopic observation LM Nom (Urine sed) See below: Normal [facility]; [facility] Work Phone: Nitrite Ql (U) Negative Normal [facility]; [facility] Work Phone: pH (U) 6.0 [pH] Normal 5.0-7.5 [facility]; [facility] Work Phone: Protein Ql (U) Negative Normal Comprehens [facility]; [facility] Work Phone: Specific gravity (U) [Rel density] 1.018 1 Normal 1.005-1.03 0 [facility]; [facility] Work Phone: Urobilinogen (U) [Mass/Vol] 0.2 mg/dL Normal 0.2-1.0 [facility]; [facility] Work Phone: CBC W/AUTO DIFF WBC ([id number])O rdered By: Sampler Tester on 03-26-2020 Basophils (Bld) [#/Vol] 0.1 {x10E3/uL} Normal 0.0-0.2 [facility] Work Phone: Comment on above: PATIENT WAS FASTINGP ERFORMED BY: [facility] [id number] Basophils (Bld) [#/Vol] 0.1 10*3/uL Normal 0.0-0.2 [facility]; [facility] Internal Medicine Work Phone: Basophils/100 WBC (Bld) 1 % Normal [facility] Work Phone: Comment on above: PATIENT WAS FASTINGP ERFORMED BY: [employer] [place] [id number] Eosinophils (Bld) [#/Vol] 0.3 {x10E3/uL} Normal 0.0-0.4 [facility] Work Phone: Comment on above: PATIENT WAS FASTINGP ERFORMED BY: [facility]6[address] [facility] [id number] Eosinophils (Bld) [#/Vol] 0.3 10*3/uL Normal 0.0-0.4 [facility]; [facility] Work Phone: Eosinophils/100 WBC (Bld) 3 % Normal [facility] Work Phone: Comment on above: PATIENT WAS FASTINGP ERFORMED BY: [place] [id number] [facility] [id number] Erythrocyte distribution width (RBC) [Ratio] 13.1 % Normal 11.6-15.4 [facility] Work Phone: Comment on above: PATIENT WAS FASTINGP ERFORMED BY: [address] [id number] Hematocrit (Bld) [Volume fraction] 45.8 % Normal 37.5-51.0 [facility] Work Phone: Comment on above: PATIENT WAS FASTINGP ERFORMED BY: [facility]6[address] [facility] [id number] Hemoglobin (Bld) [Mass/Vol] 15.3 g/dL Normal 13.0-17.7 [facility] Work Phone: Comment on above: PATIENT WAS FASTINGP ERFORMED BY: [place] [id number] [facility] [id number] Immature granulocytes (Bld) [#/Vol] 0.1 {x10E3/uL} Normal 0.0-0.1 [facility] Work Phone: Comment on above: PATIENT WAS FASTINGP ERFORMED BY: [place] [id number] [facility] [id number] Immature granulocytes (Bld) [#/Vol] 0.1 10*3/uL Normal 0.0-0.1 [facility]; [facility] Work Phone: Immature granulocytes/100 WBC (Bld) 1 % Normal [facility] Work Phone: Comment on above: PATIENT WAS FASTINGP ERFORMED BY: ALO [facility] [facility] [place] [id number] Lymphocytes (Bld) [#/Vol] 2.5 {x10E3/uL} Normal 0.7-3.1 [facility] Work Phone: Comment on above: PATIENT WAS FASTINGP ERFORMED BY: [facility] [facility] [place] [id number] Lymphocytes (Bld) [#/Vol] 2.5 10*3/uL Normal 0.7-3.1 [facility]; [facility] Work Phone: Lymphocytes/100 WBC (Bld) 24 % Normal [facility] Work Phone: Comment on above: PATIENT WAS FASTINGP ERFORMED BY: [facility]6[address] [facility] [id number] MCH (RBC) [Entitic mass] 28.8 pg Normal 26.6-33.0 [facility] Work Phone: Comment on above: PATIENT WAS FASTINGP ERFORMED BY: [facility]6[address] [facility] [place] [id number] MCHC (RBC) [Mass/Vol] 33.4 g/dL Normal 31.5-35.7 [facility] prehensive Internal Medicine Work Phone: Comment on above: PATIENT WAS FASTINGP ERFORMED BY: [facility] [facility] [place] [id number] MCV (RBC) [Entitic vol] 86 fL Normal 79-97 [facility] Work Phone: Comment on above: PATIENT WAS FASTINGP ERFORMED BY: [facility] [facility] [place] [id number] Monocytes (Bld) [#/Vol] 0.8 {x10E3/uL} Normal 0.1-0.9 [facility] Work Phone: Comment on above: PATIENT WAS FASTINGP ERFORMED BY: ALO [facility] Gzmarw1950 Mc[address] RoadWakemed Cary Hospitalin [place] [id number] Monocytes (Bld) [#/Vol] 0.8 10*3/uL Normal 0.1-0.9 [facility]; [facility] Work Phone: Monocytes/100 WBC (Bld) 8 % Normal [facility] Work Phone: Comment on above: PATIENT WAS FASTINGP ERFORMED BY: ALO [facility] Giqtbu[address] [facility] [place] [id number] Neutrophils (Bld) [#/Vol] 6.9 {x10E3/uL} Normal 1.4-7.0 [facility] Work Phone: Comment on above: PATIENT WAS FASTINGP ERFORMED BY: ALO [facility] Opvlfj[address] [facility] [id number] Neutrophils (Bld) [#/Vol] 6.9 10*3/uL Normal 1.4-7.0 [facility]; [facility] Work Phone: Neutrophils/100 WBC (Bld) 63 % Normal [facility] Work Phone: Comment on above: PATIENT WAS FASTINGP ERFORMED BY: ALO LabTyler Ehrawe[address] [facility] [id number] Platelets (Bld) [#/Vol] 316 {x10E3/uL} Normal 150-450 [facility] Work Phone: Comment on above: PATIENT WAS FASTINGP ERFORMED BY: [facility] Cwudff[address] [facility]in [place] [id number] Platelets (Bld) [#/Vol] 316 10*3/uL Normal 150-450 [facility]; [facility] Work Phone: RBC (Bld) [#/Vol] 5.32 {x10E6/uL} Normal 4.14-5.80 [facility] Internal Medicine Work Phone: Comment on above: PATIENT WAS FASTINGP ERFORMED BY: ALO [facility]elin6[address] [facility] [id number] RBC (Bld) [#/Vol] 5.32 10*6/uL Normal 4.14-5.80 [facility] Internal Medicine; [facility] Work Phone: WBC (Bld) [#/Vol] 10.7 {x10E3/uL} Normal 3.4-10.8 [facility] Internal Medicine Work Phone: Comment on above: PATIENT WAS FASTINGP ERFORMED BY: ALO LabChante MuseUoftdc1414 [facility] [id number] WBC (Bld) [#/Vol] 10.7 10*3/uL Normal 3.4-10.8 [facility] Internal Medicine; [facility] Work Phone: LIPID PANEL ([id number])Ordered B y: Sampler Tester on 03-26-2020 Cholesterol [Mass/Vol] 230 mg/dL Abnormal 100-199 [facility] Work Phone: Comment on above: PATIENT WAS FASTINGP ERFORMED BY: ALO Muselin6[address] [facility] [id number] Cholesterol in HDL [Mass/Vol] 45 mg/dL Normal [facility] Work Phone: Comment on above: PATIENT WAS FASTINGP ERFORMED BY: ALO Muselin6[address] [facility] [id number] Cholesterol in LDL/Cholesterol in HDL [Mass ratio] 3.6 {ratio} Normal 0.0-3.6 [facility] Work Phone: Comment on above: LDL/HDL Ratio Men Wo men 1/2 Avg.Risk 1.0 1.5 Avg.Risk 3.6 3.2 2X Avg.Risk 6.2 5.0 3X Avg.Risk 8.0 6.1 PATIENT WAS FASTINGP ERFORMED BY: ALO LabChante Skcaqn5493 [facility] [id number] Triglyceride [Mass/Vol] 130 mg/dL Normal 0-149 [facility] Work Phone: Comment on above: PATIENT WAS FASTINGP ERFORMED BY: ALO LabCodeann MuseSjmkss3264 Mc[address]hee RoadDublin [place] [id number] LIPID PANEL ([id number]) 24 mg/dL Normal 5-40 [facility] Internal Medicine Work Phone: Comment on above: PATIENT WAS FASTINGP ERFORMED BY: ALO [facility] Hgxmgx8777 [address] RoadDublin [place] [id number] LIPID PANEL (07604) 161 mg/dL Abnormal 0-99 [facility] Internal Medicine Work Phone: Comment on above: PATIENT WAS FASTINGP ERFORMED BY: ALO LabCodeann MuseTcuhrx3529 [address] RoadWakemed Cary Hospitalin [place] [id number] LIPID PANEL (86055) 3.6 {ratio} Normal 0.0-3.6 [facility] Internal Medicine; [facility] Internal Medicine Work Phone: METABOLIC PANEL, COMPREHENSI VE ([id number])Ordered By: Sampler Tester on 03-26-2020 Albumin [Mass/Vol] 4.6 g/dL Normal 4.0-5.0 [facility] Internal Medicine Work Phone: Comment on above: PATIENT WAS FASTINGP ERFORMED BY: ALO LabCodeann Dmtwmu3980 [address] Roadblin [place] [id number] Albumin/Globulin [Mass ratio] 1.5 {ratio} Normal 1.2-2.2 [facility] Internal Medicine Work Phone: Comment on above: PATIENT WAS FASTINGP ERFORMED BY: ALO LabCodeann MuseJanidr[address] [facility]in [place] [id number] ALP [Catalytic activity/Vol] 77 [iU]/L Normal 39-117 [facility] Work Phone: Comment on above: PATIENT WAS FASTINGP ERFORMED BY: ALO LabCodeann Gvhszb340[address] RoadDublin [place] [id number] ALP [Catalytic activity/Vol] 77 U/L Normal 39-117 [facility]; [facility] Work Phone: ALT [Catalytic activity/Vol] 31 [iU]/L Normal 0-44 [facility] Work Phone: Comment on above: PATIENT WAS FASTINGP ERFORMED BY: ALO [employer] Kofims2366 [address] RoadDublin [place] [id number] ALT [Catalytic activity/Vol] 31 U/L Normal 0-44 [facility]; [facility] Internal Medicine Work Phone: AST [Catalytic activity/Vol] 17 [iU]/L Normal 0-40 [facility] Internal Medicine Work Phone: Comment on above: PATIENT WAS FASTINGP ERFORMED BY: ALO [facility]de[facility] Eqntwu44[address]Dublin [place] [id number] AST [Catalytic activity/Vol] 17 U/L Normal 0-40 [facility]; [facility] Internal Medicine Work Phone: Bilirubin [Mass/Vol] 0.5 mg/dL Normal 0.0-1.2 [facility] Work Phone: Comment on above: PATIENT WAS FASTINGP ERFORMED BY: ALO LabCaronde[facility] Ffcmgb8[address] RoadDublin [place] [id number] Calcium [Mass/Vol] 9.9 mg/dL Normal 8.7-10.2 [facility] Internal Medicine Work Phone: Comment on above: PATIENT WAS FASTINGP ERFORMED BY: ALO LabTyler Opjfnt50[address] RoadDublin [place] [id number] Chloride [Moles/Vol] 102 mmol/L Normal 96-106 [facility] Internal Medicine Work Phone: Comment on above: PATIENT WAS FASTINGP ERFORMED BY: ALO LabC[facility]de[facility] Afwtjg72[address]Dublin [place] [id number] CO2 [Moles/Vol] 23 mmol/L Normal 20-29 [facility] Internal Medicine Work Phone: Comment on above: PATIENT WAS FASTINGP ERFORMED BY: ALO LabCo Qdrpgz4[address]Dublin [place] [id number] Creatinine [Mass/Vol] 0.98 mg/dL Normal 0.76-1.27 [facility] Internal Medicine Work Phone: Comment on above: PATIENT WAS FASTINGP ERFORMED BY: ALO LabCo Erlnvc7839 [address] RoadDublin [place] [id number] GFR/1.73 sq M predicted among blacks CKD-EPI (S/P/Bld) [Vol rate/Area] 113 mL/min/1.73 Normal [facility] Work Phone: Comment on above: PATIENT WAS FASTINGP ERFORMED BY: ALO [facility] Inrtvi[address]bl[address] [place] [id number] GFR/1.73 sq M predicted among non-blacks CKD-EPI (S/P/Bld) [Vol rate/Area] 98 mL/min/1.73 Normal [facility] Work Phone: Comment on above: PATIENT WAS FASTINGP ERFORMED BY: ALO [facility]de[facility] Ehenfg[address] [facility]in [place] [id number] Globulin (S) [Mass/Vol] 3.0 g/dL Normal 1.5-4.5 [facility] Internal Medicine Work Phone: Comment on above: PATIENT WAS FASTINGP ERFORMED BY: [facility]6[address] [facility] [id number] Glucose [Mass/Vol] 113 mg/dL Abnormal 65-99 [facility] Internal Medicine Work Phone: Comment on above: PATIENT WAS FASTINGP ERFORMED BY: ALO [facility] Zempse55[address] [facility] [id number] Potassium [Moles/Vol] 4.7 mmol/L Normal 3.5-5.2 [facility] prehensive Internal Medicine Work Phone: Comment on above: PATIENT WAS FASTINGP ERFORMED BY: [facility]6[address] [facility] [id number] Protein [Mass/Vol] 7.6 g/dL Normal 6.0-8.5 [facility] Internal Medicine Work Phone: Comment on above: PATIENT WAS FASTINGP ERFORMED BY: [facility]6[address] [facility] [id number] Sodium [Moles/Vol] 139 mmol/L Normal 134-144 [facility] Internal Medicine Work Phone: Comment on above: PATIENT WAS FASTINGP ERFORMED BY: ALO [employer] Ahixuk[address]Dublin [place] [id number] Urea nitrogen [Mass/Vol] 16 mg/dL Normal 6-20 [facility] Work Phone: Comment on above: PATIENT WAS FASTINGP ERFORMED BY: ALO [facility] Bqeqyk88[address]Dublin [place] [id number] Urea nitrogen/Creatinine [Mass ratio] 16 mg/mg Normal 9-20 [facility] Work Phone: Comment on above: PATIENT WAS FASTINGP ERFORMED BY: ALO [facility] Jpxpby32[address]Dublin [place] [id number] MICROALBUMINOrdered By: Surgery [facility] Laboratory Specialist on 03-26-2020 Albumin DL <= 20 mg/L (U) [Mass/Vol] 31.6 ug/mL Normal [facility] Work Phone: Comment on above: PATIENT WAS FASTINGP ERFORMED BY: ALO [facility] Iiczkl5271 Mcghee RoadDublin [place] [id number] Albumin/Creatinine (U) [Mass ratio] 17 {mg/g_creat} Normal 0-29 [facility] Work Phone: Comment on above: Normal: 0 - 29 Moder ately increased: 30 - 300 Severely increased: >300 Please note reference interval change PATIENT WAS FASTINGP ERFORMED BY: ALO [facility] Lyjrdx0971 Mcghee RoadDublin [place] [id number] Creatinine (U) [Mass/Vol] 182.3 mg/dL Normal [facility] Work Phone: Comment on above: PATIENT WAS FASTINGP ERFORMED BY: ALO [facility] Eustvc4797 Mcghee RoadDublin [place] [id number] TSH ([id number])Ordered By: [facility] m Research Laboratory Specialist on 03-26-2020 TSH Qn 1.920 {uIU/mL} Normal 0.450-4.50 0 [facility] Work Phone: Comment on above: PATIENT WAS FASTINGP ERFORMED BY: ALO [facility] Guhkbx5165 Mcghee RoadDublin [place] [id number] URINALYSIS, W/ MICRO ([id number]) Ordered By: Sampler Tester on 03-26-2020 Appearance (U) Clear Normal Comprehens krystal [facility] Work Phone: Comment on above: PATIENT WAS FASTINGP ERFORMED BY: ALO Muselin6370 [address]hee RoadDublin [place] [id number] Bilirubin Ql (U) Negative Normal Comprehe nsive Internal Medicine Work Phone: Comment on above: PATIENT WAS FASTINGP ERFORMED BY: ALO LabChante MuseLqsqku9522 Mcg[address] RoadDublin [place] [id number] Bilirubin Ql (U) Negative Normal Comprehe nsive Internal Medicine; [facility] Work Phone: Color (U) Yellow Normal [facility] Work Phone: Comment on above: PATIENT WAS FASTINGP ERFORMED BY: ALO Muselin6370 [address] RoadDublin [place] [id number] Glucose Ql (U) Negative Normal Comprehens krystal [facility] Work Phone: Comment on above: PATIENT WAS FASTINGP ERFORMED BY: ALO Muselin6[address]Dublin [place] [id number] Glucose Ql (U) Negative Normal Comprehens [facility]; [facility] Work Phone: Hemoglobin Ql (U) Trace Abnormal Compreh ensive Internal Medicine Work Phone: Comment on above: PATIENT WAS FASTINGP ERFORMED BY: ALO Muselin6370 [address]Dublin [place] [id number] Ketones Ql (U) Negative Normal Comprehens k[facility] Work Phone: Comment on above: PATIENT WAS FASTINGP ERFORMED BY: ALO LabCodeann MuseGlusbw7962 [address] RoadDublin [place] [id number] Ketones Ql (U) Negative Normal Comprehens [facility]; [facility] Work Phone: Leukocyte esterase Test strip Ql (U) Negative Normal [facility] Work Phone: Comment on above: PATIENT WAS FASTINGP ERFORMED BY: ALO LabCodeann MuseGzuvat2200 [address] RoadDublin [place] [id number] Leukocyte esterase Test strip Ql (U) Negative Normal [facility]; [facility] Work Phone: Microscopic observation LM Nom (Urine sed) See below: Normal [facility] Work Phone: Comment on above: Microscopic was ry cated and was performed. PATIENT WAS FASTINGP ERFORMED BY: LabCoSocorro General HospitalOljytw6781 Mcghee RoadWakemed Cary Hospitalin [place] [id number] Nitrite Ql (U) Negative Normal Comprehens k[facility] Work Phone: Comment on above: PATIENT WAS FASTINGP ERFORMED BY: LabKindred HospitalJvvrer8056 Mcghee [facility]in [place] [id number] Nitrite Ql (U) Negative Normal Comprehens k[facility]; [facility] Work Phone: pH (U) 5.0 [pH] Normal 5.0-7.5 [facility] Work Phone: Comment on above: PATIENT WAS FASTINGP ERFORMED BY: LabKindred HospitalQbpsag3399 [address] AI ExchangeWakemed Cary Hospitalin [place] [id number] Protein Ql (U) Negative Normal Comprehens k[facility] Work Phone: Comment on above: PATIENT WAS FASTINGP ERFORMED BY: ALO LabC[facility]de[facility] Lwkyry20[address] [facility] [id number] Protein Ql (U) Negative Normal Comprehens k[facility]; [facility] Work Phone: Specific gravity (U) [Rel density] 1.025 1 Normal 1.005-1.03 0 [facility] Work Phone: Comment on above: PATIENT WAS FASTINGP ERFORMED BY: Lab[facility] Hqryji[address] [facility]in [place] [id number] Urobilinogen (U) [Mass/Vol] 0.2 mg/dL Normal 0.2-1.0 [facility]; [facility] Work Phone: Urobilinogen Test strip (U) [Mass/Vol] 0.2 mg/dL Normal 0.2-1.0 Comprehensi Internal Medicine Work Phone: Comment on above: PATIENT WAS FASTINGP ERFORMED BY: [facility]Co Lqeqwa3437 [facility] [id number] CBC W/AUTO DIFF WBC ([id number])O rdered By: Sampler Tester on 01-07-2019 Basophils (Bld) [#/Vol] 0.0 {x10E3/uL} Normal 0.0-0.2 [facility] Work Phone: Comment on above: PATIENT WAS FASTINGP ERFORMED BY: HandelabraGames[address] [id number] BY: LabNeuVerus HealthEast Orange VA Medical CenterVbmyfl7016 [facility] [id number] Basophils (Bld) [#/Vol] 0.0 10*3/uL Normal 0.0-0.2 [facility]; [facility] Internal Medicine Work Phone: Basophils/100 WBC (Bld) 1 % Normal [facility] Work Phone: Comment on above: PATIENT WAS FASTINGP ERFORMED BY: HandelabraGames[address] [id number] BY: LabNeuVerus HealthJoseph Ville 9336870 [facility] [id number] Eosinophils (Bld) [#/Vol] 0.3 {x10E3/uL} Normal 0.0-0.4 [facility] Work Phone: Comment on above: PATIENT WAS FASTINGP ERFORMED BY: HandelabraGames[address] [id number] BY: HandelabraGamesJoseph Ville 9336870 [facility] [id number] Eosinophils (Bld) [#/Vol] 0.3 10*3/uL Normal 0.0-0.4 [facility]; [facility] Work Phone: Eosinophils/100 WBC (Bld) 3 % Normal [facility] Work Phone: Comment on above: PATIENT WAS FASTINGP ERFORMED BY: HandelabraGames[address] [id number] BY: LabCo Stozrk9806 [facility] [id number] Erythrocyte distribution width (RBC) [Ratio] 13.7 % Normal 12.3-15.4 [facility] Work Phone: Comment on above: PATIENT WAS FASTINGP ERFORMED BY: [address] [id number] BY: [place] 6222570 [facility] [id number] Hematocrit (Bld) [Volume fraction] 45.3 % Normal 37.5-51.0 [facility] Work Phone: Comment on above: PATIENT WAS FASTINGP ERFORMED BY: [address] [id number] BY: [place] 6222570 [facility] [id number] Hemoglobin (Bld) [Mass/Vol] 15.4 g/dL Normal 13.0-17.7 [facility] Work Phone: Comment on above: PATIENT WAS FASTINGP ERFORMED BY: [address] [id number] BY: LabAlbert Ville 2708870 [facility] [id number] Immature granulocytes (Bld) [#/Vol] 0.0 {x10E3/uL} Normal 0.0-0.1 [facility] Work Phone: Comment on above: PATIENT WAS FASTINGP ERFORMED BY: [address] [id number] BY: LabCo Rsatip8351 [facility] [id number] Immature granulocytes (Bld) [#/Vol] 0.0 10*3/uL Normal 0.0-0.1 [facility]; [facility] Work Phone: Immature granulocytes/100 WBC (Bld) 0 % Normal [facility] Work Phone: Comment on above: PATIENT WAS FASTINGP ERFORMED BY: [address] [id number] BY: [facility]6370 [facility] [id number] Lymphocytes (Bld) [#/Vol] 2.6 {x10E3/uL} Normal 0.7-3.1 [facility] Work Phone: Comment on above: PATIENT WAS FASTINGP ERFORMED BY: [address] [id number] BY: [place] 6222570 [facility] [id number] Lymphocytes (Bld) [#/Vol] 2.6 10*3/uL Normal 0.7-3.1 [facility]; [facility] Work Phone: Lymphocytes/100 WBC (Bld) 32 % Normal [facility] Work Phone: Comment on above: PATIENT WAS FASTINGP ERFORMED BY: [address] [id number] BY: [place] 6222570 [facility] [id number] MCH (RBC) [Entitic mass] 29.0 pg Normal 26.6-33.0 [facility] Internal Medicine Work Phone: Comment on above: PATIENT WAS FASTINGP ERFORMED BY: [employer] [address] [id number] BY: [place] 6222570 [facility] [id number] MCHC (RBC) [Mass/Vol] 34.0 g/dL Normal 31.5-35.7 [facility] Internal Medicine Work Phone: Comment on above: PATIENT WAS FASTINGP ERFORMED BY: [address] [id number] BY: [facility]6370 [facility] [id number] MCV (RBC) [Entitic vol] 85 fL Normal 79-97 [facility] Work Phone: Comment on above: PATIENT WAS FASTINGP ERFORMED BY: [address] [id number] BY: LabBr[facility] Hospital6370 [facility] [id number] Monocytes (Bld) [#/Vol] 0.4 {x10E3/uL} Normal 0.1-0.9 [facility] Work Phone: Comment on above: PATIENT WAS FASTINGP ERFORMED BY: HandelabraGames[address] [id number] BY: LabAlbert [place] 2708870 [facility] [id number] Monocytes (Bld) [#/Vol] 0.4 10*3/uL Normal 0.1-0.9 [facility]; [facility] Work Phone: Monocytes/100 WBC (Bld) 6 % Normal [facility] Work Phone: Comment on above: PATIENT WAS FASTINGP ERFORMED BY: HandelabraGames[address] [id number] BY: [place] 6222570 [facility] [id number] Neutrophils (Bld) [#/Vol] 4.6 {x10E3/uL} Normal 1.4-7.0 [facility] Work Phone: Comment on above: PATIENT WAS FASTINGP ERFORMED BY: [employer] [address] [id number] BY: [facility]6370 [facility] [id number] Neutrophils (Bld) [#/Vol] 4.6 10*3/uL Normal 1.4-7.0 [facility]; [facility] Work Phone: Neutrophils/100 WBC (Bld) 58 % Normal [facility] Work Phone: Comment on above: PATIENT WAS FASTINGP ERFORMED BY: [employer] [address] [id number] BY: LabBronson [facility] Hospital6370 [address] RoadMission Family Health Center [id number] Platelets (Bld) [#/Vol] 295 {x10E3/uL} Normal 150-450 [facility] Work Phone: Comment on above: PATIENT WAS FASTINGP ERFORMED BY: [employer] [address] [id number] BY: LabBr[facility] Hospital6370 [facility] [id number] Platelets (Bld) [#/Vol] 295 10*3/uL Normal 150-450 [facility]; [facility] Work Phone: RBC (Bld) [#/Vol] 5.31 {x10E6/uL} Normal 4.14-5.80 [facility] Internal Medicine Work Phone: Comment on above: PATIENT WAS FASTINGP ERFORMED BY: [employer] [address] [id number] BY: [employer] H2[facility]6370 [facility] [id number] RBC (Bld) [#/Vol] 5.31 10*6/uL Normal 4.14-5.80 [facility] Centerensive Internal [facility]; [facility] Work Phone: WBC (Bld) [#/Vol] 8.0 {x10E3/uL} Normal 3.4-10.8 [facility] Internal Medicine Work Phone: Comment on above: PATIENT WAS FASTINGP ERFORMED BY: [employer] [address] [id number] BY: LabBr[facility] Hospital6370 [facility] [id number] WBC (Bld) [#/Vol] 8.0 10*3/uL Normal 3.4-10.8 [facility] Internal Medicine; [facility] Work Phone: METABOLIC PANEL, COMPREHENSI VE ([id number])Ordered By: Sampler Tester on 01-07-2019 Albumin [Mass/Vol] 4.3 g/dL Normal 3.5-5.5 [facility] Internal Medicine Work Phone: Comment on above: PATIENT WAS FASTINGP ERFORMED BY: LabCo[address] [id number] BY: CB [facility] Hogqxo3221 Mcghee RoadDublin [place] [id number] Albumin/Globulin [Mass ratio] 1.4 {ratio} Normal 1.2-2.2 [facility] Work Phone: Comment on above: PATIENT WAS FASTINGP ERFORMED BY: LabNeuVerus Healthrp Agicyakcap[address] [id number] BY: CB [facility] Jaywxi3555 [address] RoadDublin [place] [id number] ALP [Catalytic activity/Vol] 73 [iU]/L Normal 39-117 [facility] Work Phone: Comment on above: PATIENT WAS FASTINGP ERFORMED BY: [employer] Gprxniicjq[address] [id number] BY: [facility] Rqovkz0814 [address] RoadDublin [place] [id number] ALP [Catalytic activity/Vol] 73 U/L Normal 39-117 [facility]; [facility] Work Phone: ALT [Catalytic activity/Vol] 41 [iU]/L Normal 0-44 [facility] Work Phone: Comment on above: PATIENT WAS FASTINGP ERFORMED BY: HandelabraGames[address] [id number] BY: [facility] Cxggar5854 [address] RoadDublin [place] [id number] ALT [Catalytic activity/Vol] 41 U/L Normal 0-44 [facility]; [facility] Work Phone: AST [Catalytic activity/Vol] 19 [iU]/L Normal 0-40 [facility] Work Phone: Comment on above: PATIENT WAS FASTINGP ERFORMED BY: HandelabraGamesCharlene V[place] [address] [facility] [place] [id number] BY: [facility] Tthjct7035 [address] RoadDublin [place] [id number] AST [Catalytic activity/Vol] 19 U/L Normal 0-40 [facility]; [facility] Work Phone: Bilirubin [Mass/Vol] 0.3 mg/dL Normal 0.0-1.2 [facility] rehensive Internal Medicine Work Phone: Comment on above: PATIENT WAS FASTINGP ERFORMED BY: [facility] [address] [id number] BY: [facility] Bjvnvx4889 Mcghee RoadWakemed Cary Hospitalin [place] [id number] Calcium [Mass/Vol] 9.7 mg/dL Normal 8.7-10.2 [facility] Internal Medicine Work Phone: Comment on above: PATIENT WAS FASTINGP ERFORMED BY: LabNeuVerus Health[address] [id number] BY: [facility] Aecoyq9770 Mcg[address] RoadDuin [place] [id number] Chloride [Moles/Vol] 105 mmol/L Normal 96-106 [facility] Roadensive Internal [facility] Work Phone: Comment on above: PATIENT WAS FASTINGP ERFORMED BY: LabNeuVerus Health[address] [id number] BY: [facility] Ldfogc4980 Mcg[address] RoadWakemed Cary Hospitalin [place] [id number] CO2 [Moles/Vol] 21 mmol/L Normal 20-29 [facility] Internal Medicine Work Phone: Comment on above: PATIENT WAS FASTINGP ERFORMED BY: LabNeuVerus Health[address] [id number] BY: [facility] Pdufrl2646 [address] RoadDublin [place] [id number] Creatinine [Mass/Vol] 0.92 mg/dL Normal 0.76-1.27 [facility]erensive Internal Medicine Work Phone: Comment on above: PATIENT WAS FASTINGP ERFORMED BY: LabCo[address] [id number] BY: [facility] Rgmkba8257 Mcghee Roadblin [place] [id number] GFR/1.73 sq M predicted among blacks CKD-EPI (S/P/Bld) [Vol rate/Area] 123 mL/min/1.73 Normal [facility] Work Phone: Comment on above: PATIENT WAS FASTINGP ERFORMED BY: [facility] [address] [id number] BY: [facility] Pwlaei5477 Mcghee RoadMission Family Health Center [id number] GFR/1.73 sq M predicted among non-blacks CKD-EPI (S/P/Bld) [Vol rate/Area] 107 mL/min/1.73 Normal [facility] Work Phone: Comment on above: PATIENT WAS FASTINGP ERFORMED BY: LabCo[address] [id number] BY: [facility] Ylzdyr6169 [facility] [id number] Globulin (S) [Mass/Vol] 3.0 g/dL Normal 1.5-4.5 [facility] Internal Medicine Work Phone: Comment on above: PATIENT WAS FASTINGP ERFORMED BY: LabNeuVerus Health[address] [id number] BY: [facility] Kogyho[address] [facility] [id number] Glucose [Mass/Vol] 86 mg/dL Normal 65-99 [facility] Internal Medicine Work Phone: Comment on above: PATIENT WAS FASTINGP ERFORMED BY: LabCo[address] [id number] BY: [facility] Ejksmu[address] [facility] [id number] Potassium [Moles/Vol] 4.9 mmol/L Normal 3.5-5.2 [facility] prehensive Internal Medicine Work Phone: Comment on above: PATIENT WAS FASTINGP ERFORMED BY: [facility] Fcryvuzuwd0[address] [facility] [place] [id number] BY: ALO [facility] Zslmel7450 Mcg[address] RoadDublin [place] [id number] Protein [Mass/Vol] 7.3 g/dL Normal 6.0-8.5 [facility] Internal Medicine Work Phone: Comment on above: PATIENT WAS FASTINGP ERFORMED BY: [facility] Atiorkzsyi40[address] [id number] BY: ALO [facility] Zdqgmg6415 Mcghee RoadDublin [place] [id number] Sodium [Moles/Vol] 141 mmol/L Normal 134-144 [facility] Internal Medicine Work Phone: Comment on above: PATIENT WAS FASTINGP ERFORMED BY: [facility] [address] [id number] BY: ALO [facility] Fnadsl6006 Mc[address] RoadDublin [place] [id number] Urea nitrogen [Mass/Vol] 9 mg/dL Normal 6-20 [facility] Work Phone: Comment on above: PATIENT WAS FASTINGP ERFORMED BY: [facility] [address] [id number] BY: ALO [facility] Gayaib2895 Mcg[address] RoadDublin [place] [id number] Urea nitrogen/Creatinine [Mass ratio] 10 mg/mg Normal 9-20 [facility] Work Phone: Comment on above: PATIENT WAS FASTINGP ERFORMED BY: LabCo[address] [id number] BY: [facility] Pfbpsk9438 Mc[address] RoadDublin [place] [id number] MICROALBUMINOrdered By: Syst em Research Laboratory Specialist on 01-07-2019 Albumin DL <= 20 mg/L (U) [Mass/Vol] mg/dL Normal [facility] Work Phone: Comment on above: PATIENT WAS FASTINGP ERFORMED BY: LabCo[address] [id number] BY: ALO [facility] Kygiku7712 Mcg[address] RoadDublin [place] [id number] Albumin DL <= 20 mg/L (U) [Mass/Vol] mg/dL Normal [facility]; [facility] Work Phone: Albumin/Creatinine (U) [Mass ratio] <3.2 Normal 0.0-30.0 [facility] Work Phone: Comment on above: Normal: 0.0 - 30.0 A lbuminuria: 31.0 - 300.0 Clinical albuminuria: >300.0 PATIENT WAS FASTINGP ERFORMED BY: HandelabraGames[address] [id number] BY: ALO [employer] Vamfzm4530 Mcghee RoadMission Family Health Center [id number] Creatinine (U) [Mass/Vol] 93.4 mg/dL Normal [facility] Work Phone: Comment on above: PATIENT WAS FASTINGP ERFORMED BY: HandelabraGames[address] [id number] BY: ALO LabNeuVerus HealthEast Orange VA Medical CenterMfdxpm7[address] [facility] [id number] NMR Profile ([id number])Ordered B y: Sampler Tester on 01-07-2019 Cholesterol [Mass/Vol] 191 mg/dL Normal 100-199 [facility] Work Phone: Comment on above: PATIENT WAS FASTINGP ERFORMED BY: HandelabraGames[address] [id number] BY: [facility] Pellni9510 Mcg[address] RoadWakemed Cary Hospitalin [place] [id number] Lipoprotein.alpha [Moles/Vol] 41.0 umol/L Normal [facility] Work Phone: Comment on above: PATIENT WAS FASTINGP ERFORMED BY: HandelabraGames[address] [id number] BY: [facility] Ipkdtc7801 Mcg[address] RoadWakemed Cary Hospitalin [place] [id number] Lipoprotein.beta.subp article [Entitic length] 20.9 nm Normal [facility] Work Phone: Comment on above: INTERPRETATIVE INFORMATION PARTICLE CONCENTRATION AND SIZE <--Lower CVD Risk Higher CVD Risk--> LDL AND HDL PARTICLES Percentile in Reference Population HDL-P (total) High 75th 50th 25th Low >34.9 34.9 30.5 26.7 <26.7 . Small LDL-P Low 25th 50th 75th High <117 117 527 839 >839 . LDL Size <-Large (Pattern A)-> <-Small (Pattern B)-> 23.0 20.6 20.5 19.0 Small LDL-P and LDL Size are associated with CVD risk, but not afterLDL-P is taken into account. .These assays were developed and their performance characteristicsdetermined by [employer]. These assays have not been cleared by [employer] Food and Drug Administration. The clinical utility of theselaboratory values have not been fully established. PATIENT WAS FASTINGP ERFORMED BY: [employer] [facility] [place] [id number] BY: ApplifierMission Family Health Center [id number] Lipoprotein.beta.subp article [Moles/Vol] 1278 nmol/L Abnormal Comprehensiv e Internal Medicine Work Phone: Comment on above: Low < 1000 Moderate 1000 - 1299 Borderline-High 1300 - 1599 High 1600 - 2000 Very High > 2000 PATIENT WAS FASTINGP ERFORMED BY: [employer] Indiaton[address] [facility] [place] [place] [id number] BY: E-Ductionin [place] [id number] Lipoprotein.beta.subp article.small [Moles/Vol] 737 nmol/L Abnormal [facility] Work Phone: Comment on above: PATIENT WAS FASTINGP ERFORMED BY: HandelabraGames[address] [id number] BY: [facility]6370 [facility] [id number] Triglyceride [Mass/Vol] 95 mg/dL Normal 0-149 [facility] Work Phone: Comment on above: PATIENT WAS FASTINGP ERFORMED BY: [employer] [address] [id number] BY: [place] 6222570 [facility] [id number] NMR Profile ([id number]) 50 mg/dL Normal Compr ensive Internal Medicine Work Phone: Comment on above: PATIENT WAS FASTINGP ERFORMED BY: HandelabraGames[address] [id number] BY: [facility]6370 [facility] [id number] NMR Profile (47766) 122 mg/dL Abnormal 0-99 Compr ehensive Internal Medicine Work Phone: Comment on above: . Optimal < 100 Abov e optimal 100 - 129 Borderline 130 - 159 High 160 - 189 Very high > 189 .LDL-C is inaccurate if patient is non-fasting. PATIENT WAS FASTINGP ERFORMED BY: HandelabraGames[address] [id number] BY: [facility]6370 [facility] [id number] NMR Profile (23833) 95 mg/dL Normal 0-149 Compr ehensive Internal Medicine; [facility] Work Phone: NMR Profile (74294) 191 mg/dL Normal 100-199 Compr ehensive Internal Medicine; [facility] Work Phone: TSH ([id number])Ordered By: Hanna Torre on 01-07-2019 TSH Qn 1.440 {uIU/mL} Normal 0.450-4.50 0 [facility] Work Phone: Comment on above: PATIENT WAS FASTINGP ERFORMED BY: [address] [id number] BY: ALO [facility] Xxrlmq4684 Mcg[address] RoadDublin [place] [id number] URINALYSIS, W/ MICRO ([id number]) Ordered By: Sampler Tester on 01-07-2019 Appearance (U) Clear Normal Comprehens krystal Internal Medicine Work Phone: Comment on above: PATIENT WAS FASTINGP ERFORMED BY: [employer] [address] [id number] BY: ALO [facility] Sjmfuo2608 [address] RoadDublin [place] [id number] Bilirubin Ql (U) Negative Normal Comprehe nsive Internal Medicine Work Phone: Comment on above: PATIENT WAS FASTINGP ERFORMED BY: [employer] [address] [id number] BY: ALO [facility] Okdtvm5879 [address] RoadDublin [place] [id number] Bilirubin Ql (U) Negative Normal Comprehe nsive Internal Medicine; [facility] Work Phone: Color (U) Yellow Normal [facility] Work Phone: Comment on above: PATIENT WAS FASTINGP ERFORMED BY: [employer] [address] [id number] BY: ALO [facility] Kguccd9913 Mcghee RoadDublin [place] [id number] Glucose Ql (U) Negative Normal Comprehens [facility] Work Phone: Comment on above: PATIENT WAS FASTINGP ERFORMED BY: [employer] [address] [id number] BY: [facility] Xxxkdo8151 Mcghee RoadDublin [place] [id number] Glucose Ql (U) Negative Normal Comprehens [facility]; [facility] Work Phone: Hemoglobin Ql (U) Negative Normal Compreh ensive Internal Medicine Work Phone: Comment on above: PATIENT WAS FASTINGP ERFORMED BY: [facility] [id number] BY: ALO [facility] Zujhud8393 Mcghee RoadDublin [place] [id number] Hemoglobin Ql (U) Negative Normal Compreh ensive Internal Medicine; [facility] Work Phone: Ketones Ql (U) Negative Normal Comprehens [facility] Work Phone: Comment on above: PATIENT WAS FASTINGP ERFORMED BY: [facility] [id number] BY: ALO [employer] Zqhzbv3612 [address]hee RoadDublin [place] [id number] Ketones Ql (U) Negative Normal Comprehens [facility]; [facility] Work Phone: Leukocyte esterase Test strip Ql (U) Negative Normal [facility] Work Phone: Comment on above: PATIENT WAS FASTINGP ERFORMED BY: [employer] [id number] BY: ALO [facility] Rmozzj8202 Mcghee RoadDuin [place] [id number] Leukocyte esterase Test strip Ql (U) Negative Normal [facility]; [facility] Work Phone: Microscopic observation LM Nom (Urine sed) MICRON Normal [facility] Work Phone: Comment on above: Microscopic follows if indicated. PATIENT WAS FASTINGP ERFORMED BY: [facility] [id number] BY: [employer] Ncviwf5661 [address] RoadWakemed Cary Hospitalin [place] [id number] Microscopic observation LM Nom (Urine sed) See below: Normal [facility] Work Phone: Comment on above: Microscopic was ry cated and was performed. PATIENT WAS FASTINGP ERFORMED BY: [facility] [id number] BY: ALO [facility] Tscmne8999 [address]ghee RoadDublin [place] [id number] Nitrite Ql (U) Negative Normal Comprehens [facility] Work Phone: Comment on above: PATIENT WAS FASTINGP ERFORMED BY: [address] [id number] BY: ALO [facility] Pargsf8084 Mcghee RoadDublin [place] [id number] Nitrite Ql (U) Negative Normal Comprehens [facility]; [facility] Work Phone: pH (U) 5.5 [pH] Normal 5.0-7.5 [facility] Work Phone: Comment on above: PATIENT WAS FASTINGP ERFORMED BY: [address] [id number] BY: ALO [facility] Axyodw4129 Mcghee RoadMission Family Health Center [id number] Protein Ql (U) Negative Normal Comprehens [facility] Work Phone: Comment on above: PATIENT WAS FASTINGP ERFORMED BY: [address] [id number] BY: ALO [facility]6[address] RoadDuin [place] [id number] Protein Ql (U) Negative Normal Comprehens [facility]; [facility] Work Phone: Specific gravity (U) [Rel density] 1.018 1 Normal 1.005-1.03 0 [facility] Work Phone: Comment on above: PATIENT WAS FASTINGP ERFORMED BY: [address] [id number] BY: ALO [facility] Bwtihx4166 Mcghee RoadDuin [place] [id number] Urobilinogen (U) [Mass/Vol] 0.2 mg/dL Normal 0.2-1.0 [facility]; [facility] Work Phone: Urobilinogen Test strip (U) [Mass/Vol] 0.2 mg/dL Normal 0.2-1.0 Comprehensi ve Internal Medicine Work Phone: Comment on above: PATIENT WAS FASTINGP ERFORMED BY: [place] [address] [facility] [id number] BY: [address] [id number] T3, FREE (TRIDOTHYRONINE) (8 0249)Ordered By: Sampler Tester on 08-27-2018 T3 free mass conc 3.1 pg/mL Normal 2.0-4.4 Compreh ensive Internal Medicine Work Phone: Comment on above: PATIENT NOT FASTINGP ERFORMED BY: [place] 6222570 [facility] [id number] T4, FREE (THYROXINE) ([id number]) Ordered By: Sampler Tester on 08-27-2018 T4 free mass conc 1.11 ng/dL Normal 0.82-1.77 Compreh ensive Internal Medicine Work Phone: Comment on above: PATIENT NOT FASTINGP ERFORMED BY: [address] [id number] TSH ([id number])Ordered By: Hanna m Research Laboratory Specialist on 08-27-2018 Thyrotropin Qn 0.975 {uIU/mL} Normal 0.450-4.50 0 [facility] Work Phone: Comment on above: PATIENT NOT FASTINGP ERFORMED BY: [address] [id number] GlucoseOrdered By: System Jonnie antony on 05-26-2018 Glucose mass conc 100 mg/dL Normal 74-106 Compreh ensive Internal Medicine Work Phone: Comment on above: Fasting Glucose resu lt from 100 to 125 mg/dLsuggests IMPAIRED HOMEOSTASIS per A.D.A. criteria.Please note revised GLUCOSE reference range chomvzpio17/02/2018. [facility] [address] [place], [address] NMR LipoprofileOrdered By: S ystem Research Laboratory Specialist on 05-26-2018 Cholesterol mass conc 182 mg/dL Normal 100-199 Com prehensive Internal Medicine Work Phone: Comment on above: [facility] (refer to re port for specific site)refer to report for address and phone number Triglyceride mass conc 88 mg/dL Normal 0-149 [facility] Work Phone: Comment on above: [facility] (refer to re port for specific site)refer to report for address and phone number NMR Lipoprofile . Normal [facility] Internal Medicine Work Phone: Comment on above: [facility] (refer to re port for specific site)refer to report for address and phone number NMR Lipoprofile 21.1 nm Normal [facility] Internal Medicine Work Phone: Comment on above: INTERPRETATIVE INFORMATION PARTICLE CONCENTRATION AND SIZE <--Lower CVD Risk Higher CVD Risk--> LDL AND HDL PARTICLES Percentile in Reference Population HDL-P (total) High 75th 50th 25th Low >34.9 34.9 30.5 26.7 <26.7 Small LDL-P Low 25th 50th 75th High <117 117 527 839 >839 LDL Size <-Large (Pattern A)-> <-Small (Pattern B)-> 23.0 20.6 20.5 19.0 Small LDL-P and LDL Size are associated with CVD risk, butnot after LDL-P is taken into account.These assays were developed and their performancecharacteristics determined by [employer]. These assayshave not been cleared by the US Food and DrugAdministration. The clinical utility of these laboratoryvalues have not been fully established. [facility] (refer to re port for specific site)refer to report for address and phone number NMR Lipoprofile 42 mg/dL Normal [facility] Internal Medicine Work Phone: Comment on above: [facility] (refer to re port for specific site)refer to report for address and phone number NMR Lipoprofile 122 mg/dL Abnormal 0-99 [facility] Internal Medicine Work Phone: Comment on above: Optimal < 100 Above optimal 100 - 129 Borderline 130 - 159 High 160 - 189 Very high > 189LDL-C is inaccurate if patient is non-fasting. [facility] (refer to re port for specific site)refer to report for address and phone number NMR Lipoprofile 53 1 Abnormal [facility] Internal Medicine Work Phone: Comment on above: INSULIN RESISTANCE Roger ESTEBAN <--Insulin Sensitive Insulin Resistant--> Percentile in Reference PopulationInsulin Resistance ScoreLP-IR Score Low 25th 50th 75th High <27 27 45 63 >63LP-IR Score is inaccurate if patient is non-fasting.The LP-IR score is a laboratory developed index that hasbeen associated with insulin resistance and diabetes riskand should be used as one component of a physician'sclinical assessment. The LP-IR score listed above has notbeen cleared by the US Food and Drug Administration.Performed at: [address] [id number] Director: Chanelle Carlos MD, Phone: [phone] [facility] (refer to re port for specific site)refer to report for address and phone number NMR Lipoprofile 1542 nmol/L Abnormal [facility] Internal Medicine Work Phone: Comment on above: Low < 1000 Moderate 1000 - 1299 Borderline-High 1300 - 1599 High 1600 - 2000 Very High > 2000 [facility] (refer to re port for specific site)refer to report for address and phone number NMR Lipoprofile 31.9 umol/L Normal [facility] Internal Medicine Work Phone: Comment on above: [facility] (refer to re port for specific site)refer to report for address and phone number NMR Lipoprofile 471 nmol/L Normal [facility] Internal Medicine Work Phone: Comment on above: [facility] (refer to re port for specific site)refer to report for address and phone number CBC W/AUTO DIFF WBC ([id number])O rdered By: Sampler Tester on 02-07-2018 Basophils (Bld) [#/Vol] 0.1 {x10E3/uL} Normal 0.0-0.2 [facility] Work Phone: Comment on above: PATIENT WAS FASTINGP ERFORMED BY: [employer] [address] [id number] BY: [employer] Gvrxln9122 [facility] [id number] Basophils (Bld) [#/Vol] 0.1 10*3/uL Normal 0.0-0.2 [facility]; [facility] Work Phone: Basophils Auto #/vol (Bld) 0.1 {x10E3/uL} Normal 0.0-0.2 [facility] Work Phone: Basophils/100 WBC (Bld) 1 % Normal [facility] Work Phone: Comment on above: PATIENT WAS FASTINGP ERFORMED BY: [employer] [address] [id number] BY: HandelabraGamesEast Orange VA Medical CenterVdegja3801 [facility] [id number] Basophils/100 WBC Auto (Bld) 1 % Normal [facility] Work Phone: Eosinophils (Bld) [#/Vol] 0.3 {x10E3/uL} Normal 0.0-0.4 [facility] Work Phone: Comment on above: PATIENT WAS FASTINGP ERFORMED BY: [facility] [id number] BY: [employer] Mqqdsn2505 [facility] [id number] Eosinophils (Bld) [#/Vol] 0.3 10*3/uL Normal 0.0-0.4 [facility]; [facility] Work Phone: Eosinophils Auto #/vol (Bld) 0.3 {x10E3/uL} Normal 0.0-0.4 [facility] Work Phone: Eosinophils/100 WBC (Bld) 3 % Normal [facility] Work Phone: Comment on above: PATIENT WAS FASTINGP ERFORMED BY: [employer] [id number] BY: [place] [employer] AI ExchangeMission Family Health Center [id number] Eosinophils/100 WBC Auto (Bld) 3 % Normal [facility] Work Phone: Erythrocyte distribution width (RBC) [Ratio] 14.2 % Normal 12.3-15.4 [facility] Work Phone: Comment on above: PATIENT WAS FASTINGP ERFORMED BY: [employer] [id number] BY: [employer] [employer]70 Sym[facility] ComputingFirstHealth [id number] Erythrocyte distribution width Auto Ratio (RBC) 14.2 % Normal 12.3-15.4 [facility] Work Phone: Hematocrit (Bld) [Volume fraction] 46.9 % Normal 37.5-51.0 [facility] Work Phone: Comment on above: PATIENT WAS FASTINGP ERFORMED BY: [employer] [address] [id number] BY: [employer]6370 [facility] [id number] Hematocrit Auto Volume Fraction (Bld) 46.9 % Normal 37.5-51.0 Comprehens [facility] Work Phone: Hemoglobin mass conc (Bld) 15.9 g/dL Normal 13.0-17.7 [facility] Work Phone: Comment on above: PATIENT WAS FASTINGP ERFORMED BY: [employer] [address] [id number] BY: [employer]70 [facility] [id number] Immature granulocytes #/vol (Bld) 0.0 {x10E3/uL} Normal 0.0-0.1 [facility] Work Phone: Comment on above: PATIENT WAS FASTINGP ERFORMED BY: [address] [id number] BY: [facility]6370 [facility] [id number] Immature granulocytes (Bld) [#/Vol] 0.0 10*3/uL Normal 0.0-0.1 [facility]; [facility] Work Phone: Immature granulocytes/100 WBC (Bld) 0 % Normal [facility] Work Phone: Comment on above: PATIENT WAS FASTINGP ERFORMED BY: [employer] [id number] BY: [facility]6370 [facility] [id number] Lymphocytes (Bld) [#/Vol] 2.9 {x10E3/uL} Normal 0.7-3.1 [facility] Work Phone: Comment on above: PATIENT WAS FASTINGP ERFORMED BY: [employer] [id number] BY: [facility]6370 [facility] [id number] Lymphocytes (Bld) [#/Vol] 2.9 10*3/uL Normal 0.7-3.1 [facility]; [facility] Work Phone: Lymphocytes Auto #/vol (Bld) 2.9 {x10E3/uL} Normal 0.7-3.1 [facility] Work Phone: Lymphocytes/100 WBC (Bld) 31 % Normal [facility] Work Phone: Comment on above: PATIENT WAS FASTINGP ERFORMED BY: [address] [id number] BY: [facility]6370 [facility] [id number] Lymphocytes/100 WBC Auto (Bld) 31 % Normal [facility] Work Phone: MCH (RBC) [Entitic mass] 29.4 pg Normal 26.6-33.0 [facility] Internal Medicine Work Phone: Comment on above: PATIENT WAS FASTINGP ERFORMED BY: [employer] Jkkekkdruo[address] [id number] BY: HandelabraGamesJoseph Ville 9336870 [facility] [id number] MCH Auto Entitic mass (RBC) 29.4 pg Normal 26.6-33.0 [facility] Work Phone: MCHC (RBC) [Mass/Vol] 33.9 g/dL Normal 31.5-35.7 [facility] Internal [facility] Work Phone: Comment on above: PATIENT WAS FASTINGP ERFORMED BY: [employer] [id number] BY: HandelabraGamesJoseph [place]ille 9336870 [facility] [id number] MCHC Auto mass conc (RBC) 33.9 g/dL Normal 31.5-35.7 [facility] Internal Medicine Work Phone: MCV (RBC) [Entitic vol] 87 fL Normal 79-97 [facility] Work Phone: Comment on above: PATIENT WAS FASTINGP ERFORMED BY: [employer] [id number] BY: HandelabraGamesJoseph [place] 9336870 [facility] [id number] MCV Auto Entitic volume (RBC) 87 fL Normal 79-97 [facility] Internal Medicine Work Phone: Monocytes (Bld) [#/Vol] 0.6 {x10E3/uL} Normal 0.1-0.9 [facility] Work Phone: Comment on above: PATIENT WAS FASTINGP ERFORMED BY: [employer] [address] [id number] BY: ALO [employer] Zvlwft6541 Mcghee RoadDublin [place] [id number] Monocytes (Bld) [#/Vol] 0.6 10*3/uL Normal 0.1-0.9 [facility]; [facility] Work Phone: Monocytes Auto #/vol (Bld) 0.6 {x10E3/uL} Normal 0.1-0.9 [facility] Work Phone: Monocytes/100 WBC (Bld) 6 % Normal [facility] Work Phone: Comment on above: PATIENT WAS FASTINGP ERFORMED BY: [employer] [id number] BY: ALO [employer] Yooaau1749 Mcghee RoadMission Family Health Center [id number] Monocytes/100 WBC Auto (Bld) 6 % Normal [facility] Work Phone: Neutrophils (Bld) [#/Vol] 5.6 {x10E3/uL} Normal 1.4-7.0 [facility] Work Phone: Comment on above: PATIENT WAS FASTINGP ERFORMED BY: [employer] [id number] BY: ALO [employer] Tcgots2604 Mcghee RoadMission Family Health Center [id number] Neutrophils (Bld) [#/Vol] 5.6 10*3/uL Normal 1.4-7.0 [facility]; [facility] Work Phone: Neutrophils Auto #/vol (Bld) 5.6 {x10E3/uL} Normal 1.4-7.0 [facility] Work Phone: Neutrophils/100 WBC (Bld) 59 % Normal [facility] Work Phone: Comment on above: PATIENT WAS FASTINGP ERFORMED BY: [employer] [id number] BY: [employer] Gcypqj[address] [facility] [id number] Neutrophils/100 WBC Auto (Bld) 59 % Normal [facility] Work Phone: Platelets (Bld) [#/Vol] 344 {x10E3/uL} Normal 150-379 [facility] Work Phone: Comment on above: PATIENT WAS FASTINGP ERFORMED BY: [employer] Qwwquiorqh[address] [id number] BY: ALO [employer]70 [facility] [id number] Platelets (Bld) [#/Vol] 344 10*3/uL Normal 150-379 [facility]; [facility] Work Phone: Platelets Auto #/vol (Bld) 344 {x10E3/uL} Normal 150-379 [facility] Work Phone: RBC (Bld) [#/Vol] 5.40 {x10E6/uL} Normal 4.14-5.80 [facility] Internal Medicine Work Phone: Comment on above: PATIENT WAS FASTINGP ERFORMED BY: [employer] [id number] BY: ALO HandelabraGamesEast Orange VA Medical CenterOxjewo7199 [facility] [id number] RBC (Bld) [#/Vol] 5.40 10*6/uL Normal 4.14-5.80 [facility] Internal Medicine; [facility] Work Phone: RBC Auto #/vol (Bld) 5.40 {x10E6/uL} Normal 4.14-5.80 [facility] Internal Medicine Work Phone: WBC (Bld) [#/Vol] 9.4 {x10E3/uL} Normal 3.4-10.8 [facility] Internal Medicine Work Phone: Comment on above: PATIENT WAS FASTINGP ERFORMED BY: [employer] [address] [id number] BY: [employer]ok [employer]ok [employer]in6370 [facility] [id number] WBC (Bld) [#/Vol] 9.4 10*3/uL Normal 3.4-10.8 [facility] Internal Medicine; [facility] Work Phone: WBC Auto #/vol (Bld) 9.4 {x10E3/uL} Normal 3.4-10.8 [facility] Work Phone: LIPOPROTEIN, BLD, BY NMR (83 704)Ordered By: Sampler Tester on 02-07-2018 Cholesterol in HDL mass conc 50 mg/dL Normal [facility] Work Phone: Comment on above: PATIENT WAS FASTINGP ERFORMED BY: [employer] [id number] BY: [employer]70 [facility] [id number] Information: [id number] Cholesterol in LDL mass conc 125 mg/dL Abnormal 0-99 [facility] Work Phone: Comment on above: . Optimal < 100 Abov e optimal 100 - 129 Borderline 130 - 159 High 160 - 189 Very high > 189 .LDL-C is inaccurate if patient is non-fasting. PATIENT WAS FASTINGP ERFORMED BY: [employer] [id number] BY: [employer] Loqnii0704 [facility] [id number] Information: [id number] Cholesterol mass conc 194 mg/dL Normal 100-199 [facility] prehensive Internal Medicine Work Phone: Comment on above: PATIENT WAS FASTINGP ERFORMED BY: [employer] [id number] BY: [employer] Ntwfjv2615 [facility] [id number] Information: [id number] Lipoprotein insulin resistance score Score 62 1 Abnormal [facility] Work Phone: Comment on above: INSULIN RESISTANCE Roger ESTEBAN <--Insulin Sensitive Insulin Resistant--> Percentile in Reference PopulationInsulin Resistance ScoreLP-IR Score Low 25th 50th 75th High <27 27 45 63 >63LP-IR Score is inaccurate if patient is non-fasting. .The LP-IR score is a laboratory developed index that has beenassociated with insulin resistance and diabetes risk and should beused as one component of a physician's clinical assessment. TheLP-IR score listed above has not been cleared by the [place] Food andDrug Administration. Lipoprotein.alpha molar conc 36.1 umol/L Normal [facility] Work Phone: Comment on above: PATIENT WAS FASTINGP ERFORMED BY: BN [facility] Aynlyaugjd[address] [facility] [place] [id number] BY: CB [facility] Hnvyhz3371 [facility] [id number] Information: [id number] Lipoprotein.beta.subp article Entitic length 21.0 nm Normal [facility] Work Phone: Comment on above: INTERPRETATIVE INFORMATION PARTICLE CONCENTRATION AND SIZE <--Lower CVD Risk Higher CVD Risk--> LDL AND HDL PARTICLES Percentile in Reference Population HDL-P (total) High 75th 50th 25th Low >34.9 34.9 30.5 26.7 <26.7 . Small LDL-P Low 25th 50th 75th High <117 117 527 839 >839 . LDL Size <-Large (Pattern A)-> <-Small (Pattern B)-> 23.0 20.6 20.5 19.0 Small LDL-P and LDL Size are associated with CVD risk, but not afterLDL-P is taken into account. .These assays were developed and their performance characteristicsdetermined by [employer]. These assays have not been cleared by [place] Food and Drug Administration. The clinical utility of theselaboratory values have not been fully established. PATIENT WAS FASTINGP ERFORMED BY: [employer] [id number] BY: [facility]6370 [facility] [id number] Information: [id number] Lipoprotein.beta.subp article molar conc 1523 nmol/L Abnormal [facility] Work Phone: Comment on above: Low < 1000 Moderate 1000 - 1299 Borderline-High 1300 - 1599 High 1600 - 2000 Very High > 2000 PATIENT WAS FASTINGP ERFORMED BY: [employer] [id number] BY: [employer] H2[place] 2708870 [facility] [id number] Information: [id number] Lipoprotein.beta.subp article.small molar conc 818 nmol/L Abnormal [facility] Work Phone: Comment on above: PATIENT WAS FASTINGP ERFORMED BY: [employer] [id number] BY: [place] 6222570 [facility] [id number] Information: [id number] Triglyceride mass conc 94 mg/dL Normal 0-149 [facility] Work Phone: Comment on above: PATIENT WAS FASTINGP ERFORMED BY: [employer] [id number] BY: [employer] H2[place] 2708870 [facility] [id number] Information: [id number] MICROALBUMINOrdered By: Syst em Research Laboratory Specialist on 02-07-2018 Albumin DL <= 20 mg/L (U) [Mass/Vol] mg/dL Normal [facility]; [facility] Work Phone: Albumin DL <= 20 mg/L mass conc (U) mg/dL Normal [facility] Work Phone: Comment on above: PATIENT WAS FASTINGP ERFORMED BY: [employer] [address] [id number] BY: [facility] Yzijxn[address] [facility] Hospitalin [place] [id number] Albumin/Creatinine mass ratio (U) <6.0 Normal 0.0-30.0 [facility] Work Phone: Comment on above: PATIENT WAS FASTINGP ERFORMED BY: Lab[address] [id number] BY: [facility] Erhtma[address] [facility] [id number] Creatinine mass conc (U) 49.9 mg/dL Normal [facility] Work Phone: Comment on above: PATIENT WAS FASTINGP ERFORMED BY: [employer] [address] [id number] BY: ALO [facility] Knchzs[address] [facility] [id number] Microscopic ExaminationOrder ed By: Sampler Tester on 02-07-2018 Bacteria LM.HPF #/area (Urine sed) None seen Normal [facility] Work Phone: Comment on above: PATIENT WAS FASTINGP ERFORMED BY: [employer] [address] [id number] BY: [facility] Rqxsag[address] [facility] [place] [id number] Epithelial cells LM.HPF #/area (Urine sed) 0-10 Normal 0 - 10 [facility] Work Phone: Comment on above: PATIENT WAS FASTINGP ERFORMED BY: [address] [id number] BY: [facility] Kpdqfk0476 [address] [facility] [id number] Mucus LM Ql (Urine sed) Present Normal [facility] Work Phone: Mucus Ql (Urine sed) Present Normal Comp rehensive Internal Medicine Work Phone: Comment on above: PATIENT WAS FASTINGP ERFORMED BY: Lab[address] [id number] BY: [facility] Grqkqt0187 Mcghee RoadDublin [place] [id number] RBC LM.HPF #/area (Urine sed) None seen Normal 0 - 2 [facility] Work Phone: Comment on above: PATIENT WAS FASTINGP ERFORMED BY: [address] [id number] BY: [facility] Vpnpcd4546 [address] [facility] JacksonD[place] [id number] WBC LM.HPF #/area (Urine sed) 0-5 Normal 0 - 5 [facility] Work Phone: Comment on above: PATIENT WAS FASTINGP ERFORMED BY: Lab[address] [id number] BY: [facility] Jskywa1134 [facility] [id number] TSH ([id number])Ordered By: Syste m Research Laboratory Specialist on 02-07-2018 Thyrotropin Qn 1.790 {uIU/mL} Normal 0.450-4.50 0 [facility] Work Phone: Comment on above: PATIENT WAS FASTINGP ERFORMED BY: [address] [id number] BY: [facility] Ygavhh9918 [facility] [id number] URINALYSIS, W/ MICRO ([id number]) Ordered By: Sampler Tester on 02-07-2018 Appearance Nom (U) Clear Normal Compre hensive Internal Medicine Work Phone: Comment on above: PATIENT WAS FASTINGP ERFORMED BY: [address] [id number] BY: [facility] Swvdrv0635 [facility] [id number] Bilirubin Ql (U) Negative Normal Comprehe nsive Internal Medicine Work Phone: Comment on above: PATIENT WAS FASTINGP ERFORMED BY: [address] [id number] BY: ALO [facility] Qyrcfa0814 [address] RoadDublin [place] [id number] Bilirubin Ql (U) Negative Normal Comprehe nsive Internal Medicine; [facility] Work Phone: Color Nom (U) Yellow Normal Comprehensi ve Internal Medicine Work Phone: Comment on above: PATIENT WAS FASTINGP ERFORMED BY: [address] [id number] BY: ALO [facility] Xvshjc9963 Mcghee RoadDublin [place] [id number] Glucose Ql (U) Negative Normal Comprehens krystal [facility] Medicine Work Phone: Comment on above: PATIENT WAS FASTINGP ERFORMED BY: [address] [id number] BY: ALO [facility] Mlnccv7363 [address] RoadDublin [place] [id number] Glucose Ql (U) Negative Normal Comprehens krystal [facility]; [facility] Work Phone: Hemoglobin Ql (U) Negative Normal Compreh ensive Internal Medicine Work Phone: Comment on above: PATIENT WAS FASTINGP ERFORMED BY: [address] [id number] BY: ALO [facility] Scqaqe2814 [address] RoadDublin [place] [id number] Hemoglobin Ql (U) Negative Normal Compreh ensive Internal Medicine; [facility] Work Phone: Hemoglobin Test strip Ql (U) Negative Normal [facility] Work Phone: Ketones Ql (U) Negative Normal Comprehens krystal [facility] Work Phone: Comment on above: PATIENT WAS FASTINGP ERFORMED BY: [address] [id number] BY: ALO [facility] Rlwxqi6892 [address] RoadDublin [place] [id number] Ketones Ql (U) Negative Normal Comprehens k[facility]; [facility] Work Phone: Leukocyte esterase Test strip Ql (U) Negative Normal [facility] Work Phone: Comment on above: PATIENT WAS FASTINGP ERFORMED BY: HandelabraGames[address] [id number] BY: [facility] Jegixi8034 [address] RoadDublin [place] [id number] Leukocyte esterase Test strip Ql (U) Negative Normal [facility]; [facility] Work Phone: Microscopic observation LM Nom (Urine sed) MICRON Normal [facility] Work Phone: Comment on above: Microscopic follows if indicated. PATIENT WAS FASTINGP ERFORMED BY: HandelabraGames[address] [id number] BY: [facility] Shfnnj7528 [address] RoadDublin [place] [id number] Microscopic observation LM Nom (Urine sed) See below: Normal [facility] Work Phone: Comment on above: Microscopic was ry cated and was performed. PATIENT WAS FASTINGP ERFORMED BY: HandelabraGames[address] [id number] BY: [facility] Fbgewv1819 [address] RoadDublin [place] [id number] Nitrite Ql (U) Negative Normal Comprehens krystal [facility] Work Phone: Comment on above: PATIENT WAS FASTINGP ERFORMED BY: [employer] Mxbllajjed[address] [id number] BY: [facility] Eroanb6043 [address] RoadDublin [place] [id number] Nitrite Ql (U) Negative Normal Comprehens krystal [facility]; [facility] Work Phone: Nitrite Test strip Ql (U) Negative Normal [facility] Work Phone: pH (U) 6.0 [pH] Normal 5.0-7.5 [facility] Work Phone: Comment on above: PATIENT WAS FASTINGP ERFORMED BY: HandelabraGames[address] [id number] BY: [employer]6[address] [place] [id number] pH Test strip (U) 6.0 [pH] Normal 5.0-7.5 Compreh ensive Internal Medicine Work Phone: Protein Ql (U) Negative Normal Comprehens krystal [facility] Work Phone: Comment on above: PATIENT WAS FASTINGP ERFORMED BY: HandelabraGames[address] [id number] BY: ALO [employer] Ahklor1477 [address] [facility] ExchangeMission Family Health Center [id number] Protein Ql (U) Negative Normal Comprehens krystal [facility]; [facility] Work Phone: Protein Test strip Ql (U) Negative Normal [facility] Work Phone: Specific gravity Relative Density (U) 1.017 1 Normal 1.005-1.03 0 [facility] Work Phone: Comment on above: PATIENT WAS FASTINGP ERFORMED BY: HandelabraGames[address] [id number] BY: ALO [employer] Htfzna1923 [facility] [id number] Urobilinogen (U) [Mass/Vol] 0.2 mg/dL Normal 0.2-1.0 [facility]; [facility] Work Phone: Urobilinogen Test strip mass conc (U) 0.2 mg/dL Normal 0.2-1.0 Comprehensiv e Internal Medicine Work Phone: Comment on above: PATIENT WAS FASTINGP ERFORMED BY: Optovue[address] [id number] BY: [employer] Gqzjae9407 [facility] [id number] CBC W/AUTO DIFF WBC ([id number])O rdered By: Sampler Tester on 05-12-2017 Basophils (Bld) [#/Vol] 0.0 {x10E3/uL} Normal 0.0-0.2 [facility] Work Phone: Comment on above: PATIENT WAS FASTINGP ERFORMED BY: ALO HandelabraGamesEast Orange VA Medical CenterSzemkk4900 [facility] [id number] Basophils (Bld) [#/Vol] 0.0 10*3/uL Normal 0.0-0.2 [facility]; [facility] Work Phone: Basophils Auto #/vol (Bld) 0.0 {x10E3/uL} Normal 0.0-0.2 [facility] Work Phone: Basophils/100 WBC (Bld) 0 % Normal [facility] Work Phone: Comment on above: PATIENT WAS FASTINGP ERFORMED BY: ALO [employer] H2Chante Rkfinm5295 [facility] [id number] Basophils/100 WBC Auto (Bld) 0 % Normal [facility] Work Phone: Eosinophils (Bld) [#/Vol] 0.2 {x10E3/uL} Normal 0.0-0.4 [facility] Work Phone: Comment on above: PATIENT WAS FASTINGP ERFORMED BY: ALO [place] Bxchsm1211 [facility] [id number] Eosinophils (Bld) [#/Vol] 0.2 10*3/uL Normal 0.0-0.4 [facility]; [facility] Work Phone: Eosinophils Auto #/vol (Bld) 0.2 {x10E3/uL} Normal 0.0-0.4 [facility] Work Phone: Eosinophils/100 WBC (Bld) 2 % Normal [facility] Work Phone: Comment on above: PATIENT WAS FASTINGP ERFORMED BY: HandelabraGamesJoseph [place] 9336870 [facility] [id number] Eosinophils/100 WBC Auto (Bld) 2 % Normal [facility] Work Phone: Erythrocyte distribution width (RBC) [Ratio] 14.3 % Normal 12.3-15.4 [facility] Work Phone: Comment on above: PATIENT WAS FASTINGP ERFORMED BY: ALO LabCoEast Orange VA Medical CenterQfekvk6951 [address] [facility] [id number] Erythrocyte distribution width Auto Ratio (RBC) 14.3 % Normal 12.3-15.4 [facility] Work Phone: Hematocrit (Bld) [Volume fraction] 44.3 % Normal 37.5-51.0 [facility] Work Phone: Comment on above: PATIENT WAS FASTINGP ERFORMED BY: ALO LabCoEast Orange VA Medical CenterHghjxy5834 [facility] [id number] Hematocrit Auto Volume Fraction (Bld) 44.3 % Normal 37.5-51.0 [facility] Internal Medicine Work Phone: Hemoglobin mass conc (Bld) 14.8 g/dL Normal 12.6-17.7 [facility] Work Phone: Comment on above: PATIENT WAS FASTINGP ERFORMED BY: ALO [facility] Aimesx6903 [address] [facility] [id number] Immature granulocytes #/vol (Bld) 0.0 {x10E3/uL} Normal 0.0-0.1 [facility] Work Phone: Comment on above: PATIENT WAS FASTINGP ERFORMED BY: ALO LabBr[facility]6370 [facility] [id number] Immature granulocytes (Bld) [#/Vol] 0.0 10*3/uL Normal 0.0-0.1 [facility]; [facility] Work Phone: Immature granulocytes/100 WBC (Bld) 0 % Normal [facility] Work Phone: Comment on above: PATIENT WAS FASTINGP ERFORMED BY: [facility] Kslsvg1997 [address] [facility] [id number] Lymphocytes (Bld) [#/Vol] 2.5 {x10E3/uL} Normal 0.7-3.1 [facility] Work Phone: Comment on above: PATIENT WAS FASTINGP ERFORMED BY: [facility] Osvgmg7584 [facility] [id number] Lymphocytes (Bld) [#/Vol] 2.5 10*3/uL Normal 0.7-3.1 [facility]; [facility] Work Phone: Lymphocytes Auto #/vol (Bld) 2.5 {x10E3/uL} Normal 0.7-3.1 [facility] Work Phone: Lymphocytes/100 WBC (Bld) 29 % Normal [facility] Work Phone: Comment on above: PATIENT WAS FASTINGP ERFORMED BY: ALO [place] 2769670 [facility] [id number] Lymphocytes/100 WBC Auto (Bld) 29 % Normal [facility] Work Phone: MCH (RBC) [Entitic mass] 28.6 pg Normal 26.6-33.0 [facility] Internal Medicine Work Phone: Comment on above: PATIENT WAS FASTINGP ERFORMED BY: ALO [place] 2769670 [facility] [id number] MCH Auto Entitic mass (RBC) 28.6 pg Normal 26.6-33.0 [facility] Internal Medicine Work Phone: MCHC (RBC) [Mass/Vol] 33.4 g/dL Normal 31.5-35.7 [facility] Internal Medicine Work Phone: Comment on above: PATIENT WAS FASTINGP ERFORMED BY: ALO [place] 2769670 [facility] [id number] MCHC Auto mass conc (RBC) 33.4 g/dL Normal 31.5-35.7 [facility] Internal Medicine Work Phone: MCV (RBC) [Entitic vol] 86 fL Normal 79-97 [facility] Internal Medicine Work Phone: Comment on above: PATIENT WAS FASTINGP ERFORMED BY: [place] 6222570 [facility] [id number] MCV Auto Entitic volume (RBC) 86 fL Normal 79-97 [facility] Internal Medicine Work Phone: Monocytes (Bld) [#/Vol] 0.8 {x10E3/uL} Normal 0.1-0.9 [facility] Work Phone: Comment on above: PATIENT WAS FASTINGP ERFORMED BY: ALO [employer] Kluaxg8433 [facility] [id number] Monocytes (Bld) [#/Vol] 0.8 10*3/uL Normal 0.1-0.9 [facility]; [facility] Work Phone: Monocytes Auto #/vol (Bld) 0.8 {x10E3/uL} Normal 0.1-0.9 [facility] Work Phone: Monocytes/100 WBC (Bld) 9 % Normal [facility] Work Phone: Comment on above: PATIENT WAS FASTINGP ERFORMED BY: ALO HandelabraGamesdeann MuseSbbbvx3037 [facility] [id number] Monocytes/100 WBC Auto (Bld) 9 % Normal [facility] Work Phone: Neutrophils (Bld) [#/Vol] 5.0 {x10E3/uL} Normal 1.4-7.0 [facility] Work Phone: Comment on above: PATIENT WAS FASTINGP ERFORMED BY: ALO Muselin6370 [facility] [id number] Neutrophils (Bld) [#/Vol] 5.0 10*3/uL Normal 1.4-7.0 [facility]; [facility] Work Phone: Neutrophils Auto #/vol (Bld) 5.0 {x10E3/uL} Normal 1.4-7.0 [facility] Work Phone: Neutrophils/100 WBC (Bld) 60 % Normal [facility] Work Phone: Comment on above: PATIENT WAS FASTINGP ERFORMED BY: [facility] North HospitalNeuVerus HealthJoseph Ville 9336870 [facility] [id number] Neutrophils/100 WBC Auto (Bld) 60 % Normal [facility] Work Phone: Platelets (Bld) [#/Vol] 319 {x10E3/uL} Normal 150-379 [facility] Work Phone: Comment on above: PATIENT WAS FASTINGP ERFORMED BY: HandelabraGamesEast Orange VA Medical CenterAeomjv2167 [facility] [id number] Platelets (Bld) [#/Vol] 319 10*3/uL Normal 150-379 [facility]; [facility] Work Phone: Platelets Auto #/vol (Bld) 319 {x10E3/uL} Normal 150-379 [facility] Work Phone: RBC (Bld) [#/Vol] 5.18 {x10E6/uL} Normal 4.14-5.80 [facility] Internal Medicine Work Phone: Comment on above: PATIENT WAS FASTINGP ERFORMED BY: [employer] Zwwpso9582 [facility] [id number] RBC (Bld) [#/Vol] 5.18 10*6/uL Normal 4.14-5.80 [facility] Centerensive [facility]; [facility] Work Phone: RBC Auto #/vol (Bld) 5.18 {x10E6/uL} Normal 4.14-5.80 [facility] Work Phone: WBC (Bld) [#/Vol] 8.4 {x10E3/uL} Normal 3.4-10.8 [facility] Internal Medicine Work Phone: Comment on above: PATIENT WAS FASTINGP ERFORMED BY: [employer] H2[facility]6370 [facility] [id number] WBC (Bld) [#/Vol] 8.4 10*3/uL Normal 3.4-10.8 [facility] Internal Medicine; [facility] Work Phone: WBC Auto #/vol (Bld) 8.4 {x10E3/uL} Normal 3.4-10.8 [facility] Work Phone: LIPID PANEL ([id number])Ordered B y: Sampler Tester on 05-12-2017 Cholesterol in HDL mass conc 44 mg/dL Normal [facility] Work Phone: Comment on above: PATIENT WAS FASTINGP ERFORMED BY: ALO LabCodeann Fdgnls2808 [address] RoadDublin [place] [id number] Cholesterol in LDL mass conc 118 mg/dL Abnormal 0-99 [facility] Work Phone: Comment on above: PATIENT WAS FASTINGP ERFORMED BY: ALO LabChante MuseNdabge2917 [address] RoadDublin [place] [id number] Cholesterol in LDL/Cholesterol in HDL mass ratio 2.7 {ratio_units} Normal 0.0-3.6 [facility] Work Phone: Comment on above: LDL/HDL Ratio Men Wo men 1/2 Avg.Risk 1.0 1.5 Avg.Risk 3.6 3.2 2X Avg.Risk 6.2 5.0 3X Avg.Risk 8.0 6.1 PATIENT WAS FASTINGP ERFORMED BY: ALO LabChante MuseUjegyn3246 [address] RoadDublin [place] [id number] Cholesterol in VLDL mass conc 17 mg/dL Normal 5-40 [facility] Work Phone: Comment on above: PATIENT WAS FASTINGP ERFORMED BY: ALO LabChante MuseDkumrm2047 [address] RoadDublin [place] [id number] Cholesterol mass conc 179 mg/dL Normal 100-199 [facility] prehensive Internal Medicine Work Phone: Comment on above: PATIENT WAS FASTINGP ERFORMED BY: ALO Muselin6370 [address] RoadDublin [place] [id number] Triglyceride mass conc 86 mg/dL Normal 0-149 [facility] Work Phone: Comment on above: PATIENT WAS FASTINGP ERFORMED BY: ALO [facility] Sxvpip7754 [address] [facility] JacksonD[place] [id number] METABOLIC PANEL, COMPREHENSI VE ([id number])Ordered By: Sampler Tester on 05-12-2017 Albumin mass conc 4.4 g/dL Normal 3.5-5.5 Compreh enslds [facility] Internal Medicine Work Phone: Comment on above: PATIENT WAS FASTINGP ERFORMED BY: ALO [facility] Ewfngd2646 [address] RoadDublin [place] [id number] Albumin/Globulin mass ratio 1.6 {ratio} Normal 1.2-2.2 [facility] Internal Medicine Work Phone: Comment on above: PATIENT WAS FASTINGP ERFORMED BY: ALO LabTylerdeann MuseGlygfp1826 [address] RoadDublin [place] [id number] ALP [Catalytic activity/Vol] 66 U/L Normal 39-117 [facility]; [facility] Internal Medicine Work Phone: ALP enzyme act/vol 66 [iU]/L Normal 39-117 [facility] Internal Medicine Work Phone: Comment on above: PATIENT WAS FASTINGP ERFORMED BY: ALO LabC[facility] Bcqzsy2028 [address] RoadDublin [place] [id number] ALT [Catalytic activity/Vol] 38 U/L Normal 0-44 [facility]; [facility] Internal Medicine Work Phone: ALT enzyme act/vol 38 [iU]/L Normal 0-44 [facility] Internal Medicine Work Phone: Comment on above: PATIENT WAS FASTINGP ERFORMED BY: ALO [facility] Aafrlt2533 [address] RoadDublin [place] [id number] AST [Catalytic activity/Vol] 19 U/L Normal 0-40 [facility]; [facility] Internal Medicine Work Phone: AST enzyme act/vol 19 [iU]/L Normal 0-40 [facility] Internal Medicine Work Phone: Comment on above: PATIENT WAS FASTINGP ERFORMED BY: ALO LabC[facility]de[facility] Health Nvkqyj2544 [address] RoadDublin [place] [id number] Bilirubin mass conc 0.4 mg/dL Normal 0.0-1.2 [facility] Internal Medicine Work Phone: Comment on above: PATIENT WAS FASTINGP ERFORMED BY: ALO [facility] Laqnma8002 [address] RoadDublin [place] [id number] Calcium mass conc 9.2 mg/dL Normal 8.7-10.2 [facility] Internal Medicine Work Phone: Comment on above: PATIENT WAS FASTINGP ERFORMED BY: [facility] Rgdazc3298 [address] RoadDublin [place] [id number] Chloride molar conc 101 mmol/L Normal 96-106 Compr ehensive Internal Medicine Work Phone: Comment on above: PATIENT WAS FASTINGP ERFORMED BY: ALO Brennan6370 McgheeJohn [facility]. [facility] [id number] CO2 molar conc 22 mmol/L Normal 18-29 Comprehens krystal Internal Medicine Work Phone: Comment on above: PATIENT WAS FASTINGP ERFORMED BY: ALO LabCodeann BrennanGibron1730 [facility] [id number] Creatinine mass conc 0.96 mg/dL Normal 0.76-1.27 [facility] Work Phone: Comment on above: PATIENT WAS FASTINGP ERFORMED BY: ALO Ave Muselin6370 [facility] [id number] GFR/1.73 sq M predicted among blacks CKD-EPI vol rate/area (S/P/Bld) 119 mL/min/1.73 Normal Comprehensiv e Internal Medicine Work Phone: Comment on above: PATIENT WAS FASTINGP ERFORMED BY: ALO [address] Brennan6370 [facility] [id number] GFR/1.73 sq M predicted among non-blacks CKD-EPI vol rate/area (S/P/Bld) 103 mL/min/1.73 Normal [facility] Work Phone: Comment on above: PATIENT WAS FASTINGP ERFORMED BY: ALO [address] Muselin6370 [facility] [id number] Globulin (S) [Mass/Vol] 2.8 g/dL Normal 1.5-4.5 [facility] Work Phone: Comment on above: PATIENT WAS FASTINGP ERFORMED BY: ALO [facility] Czlmez3332 [facility] [id number] Globulin Calculated mass conc (S) 2.8 g/dL Normal 1.5-4.5 [facility] Work Phone: Glucose mass conc 90 mg/dL Normal 65-99 Compreh ensive Internal Medicine Work Phone: Comment on above: PATIENT WAS FASTINGP ERFORMED BY: ALO Muselin6370 [facility] [id number] Potassium molar conc 4.6 mmol/L Normal 3.5-5.2 Comp rehensive Internal Medicine Work Phone: Comment on above: PATIENT WAS FASTINGP ERFORMED BY: ALO Brennan6370 [facility] [id number] Protein mass conc 7.2 g/dL Normal 6.0-8.5 Compreh ensive Internal Medicine Work Phone: Comment on above: PATIENT WAS FASTINGP ERFORMED BY: ALO Brennan6370 [facility] [id number] Sodium molar conc 140 mmol/L Normal 134-144 Compreh ensive Internal Medicine Work Phone: Comment on above: PATIENT WAS FASTINGP ERFORMED BY: ALO Brennan6370 [facility] [id number] Urea nitrogen mass conc 12 mg/dL Normal 6-20 [facility] Work Phone: Comment on above: PATIENT WAS FASTINGP ERFORMED BY: ALO Brennan6370 [facility] [id number] Urea nitrogen/Creatinine mass ratio 13 mg/mg Normal - [facility] Work Phone: Comment on above: PATIENT WAS FASTINGP ERFORMED BY: ALO Brennan6370 [facility] [id number] MICROALBUMINOrdered By: Syst em Research Laboratory Specialist on 05-12-2017 Albumin DL <= 20 mg/L mass conc (U) 9.5 ug/mL Normal [facility] Work Phone: Comment on above: PATIENT WAS FASTINGP ERFORMED BY: ALO Muselin6370 [facility] [id number] Albumin/Creatinine mass ratio (U) 3.7 {mg/g_creat} Normal 0.0-30.0 [facility] Work Phone: Comment on above: PATIENT WAS FASTINGP ERFORMED BY: ALO Muselin[address] [facility] Hospitalin [place] [id number] Creatinine mass conc (U) 258.8 mg/dL Normal [facility] Work Phone: Comment on above: PATIENT WAS FASTINGP ERFORMED BY: ALO LabC[facility] Uvgmmn9623 [address] [facility] Hospitalin [place] [id number] Microscopic ExaminationOrder ed By: Sampler Tester on 05-12-2017 Bacteria LM.HPF #/area (Urine sed) None seen Normal [facility] Work Phone: Comment on above: PATIENT WAS FASTINGP ERFORMED BY: ALO LabBr[facility] Hospital6370 [facility] [id number] Epithelial cells LM.HPF #/area (Urine sed) None seen Normal 0 - 10 [facility] Work Phone: Comment on above: PATIENT WAS FASTINGP ERFORMED BY: ALO LabBr[facility] Hospital6370 [facility] [id number] Mucus LM Ql (Urine sed) Present Normal [facility] Work Phone: Mucus Ql (Urine sed) Present Normal Comp rehensive Internal Medicine Work Phone: Comment on above: PATIENT WAS FASTINGP ERFORMED BY: ALO LabC[facility]de[facility] Health Tgfcjb9846 [facility] [id number] RBC LM.HPF #/area (Urine sed) 0-2 Normal 0 - 2 [facility] Work Phone: Comment on above: PATIENT WAS FASTINGP ERFORMED BY: LabCarondelet Health Qzqxfm5581 [facility] [id number] WBC LM.HPF #/area (Urine sed) 0-5 Normal 0 - 5 [facility] Work Phone: Comment on above: PATIENT WAS FASTINGP ERFORMED BY: [facility] Uavkew5278 [facility] [id number] TSH ([id number])Ordered By: Hanna m Research Laboratory Specialist on 05-12-2017 Thyrotropin Qn 1.780 {uIU/mL} Normal 0.450-4.50 0 [facility] Work Phone: Comment on above: PATIENT WAS FASTINGP ERFORMED BY: ALO [facility] Zcbvlv5681 [address] RoadDublin [place] [id number] URINALYSIS, W/ MICRO ([id number]) Ordered By: Sampler Tester on 05-12-2017 Appearance Nom (U) Clear Normal Compre hensive Internal Medicine Work Phone: Comment on above: PATIENT WAS FASTINGP ERFORMED BY: ALO LabChante MuseTgxuen5986 [address] RoadDublin [place] [id number] Bilirubin Ql (U) Negative Normal Comprehe nsive Internal Medicine Work Phone: Comment on above: PATIENT WAS FASTINGP ERFORMED BY: ALO LabCodeann MuseWahsgr7996 [address] RoadDublin [place] [id number] Bilirubin Ql (U) Negative Normal Comprehe nsive Internal Medicine; [facility] Work Phone: Color Nom (U) Yellow Normal Comprehensi ve Internal Medicine Work Phone: Comment on above: PATIENT WAS FASTINGP ERFORMED BY: ALO LabCodeann MuseSlzteo7799 [address]ghee RoadDublin [place] [id number] Glucose Ql (U) Negative Normal [facility] Work Phone: Comment on above: PATIENT WAS FASTINGP ERFORMED BY: ALO LabChante MuseWhfaqc8712 [address]hee RoadDublin [place] [id number] Glucose Ql (U) Negative Normal [facility]; [facility] Work Phone: Hemoglobin Ql (U) Negative Normal Compreh ensive [facility] Work Phone: Comment on above: PATIENT WAS FASTINGP ERFORMED BY: ALO [facility] Vswzil7086 [address]hee RoadDublin [place] [id number] Hemoglobin Ql (U) Negative Normal Compreh [facility]; [facility] Work Phone: Hemoglobin Test strip Ql (U) Negative Normal [facility] Work Phone: Ketones Ql (U) Negative Normal Comprehens [facility] Work Phone: Comment on above: PATIENT WAS FASTINGP ERFORMED BY: ALO LabChante MuseHvbovh7796 Mcghee RoadWakemed Cary Hospitalin [place] [id number] Ketones Ql (U) Negative Normal [facility]; [facility] Work Phone: Leukocyte esterase Test strip Ql (U) Negative Normal [facility] Work Phone: Comment on above: PATIENT WAS FASTINGP ERFORMED BY: ALO [facility] Geeljo4029 [address]blin [place] [id number] Leukocyte esterase Test strip Ql (U) Negative Normal [facility]; [facility] Work Phone: Microscopic observation LM Nom (Urine sed) MICRON Normal [facility] Work Phone: Comment on above: Microscopic follows if indicated. PATIENT WAS FASTINGP ERFORMED BY: ALO LabChante MuseNfngpk7915 [address]ghee RoadDublin [place] [id number] Microscopic observation LM Nom (Urine sed) See below: Normal [facility] Work Phone: Comment on above: Microscopic was ry cated and was performed. PATIENT WAS FASTINGP ERFORMED BY: ALO LabCo Nsdatb8570 [address] RoadDublin [place] [id number] Nitrite Ql (U) Negative Normal [facility] Work Phone: Comment on above: PATIENT WAS FASTINGP ERFORMED BY: ALO LabChante MuseLgijrt5828 [address] RoadDuin [place] [id number] Nitrite Ql (U) Negative Normal [facility]; [facility] Work Phone: Nitrite Test strip Ql (U) Negative Normal [facility] Work Phone: pH (U) 5.5 [pH] Normal 5.0-7.5 [facility] Work Phone: Comment on above: PATIENT WAS FASTINGP ERFORMED BY: ALO [facility] Uigyrd7870 [address] RoadDublin [place] [id number] pH Test strip (U) 5.5 [pH] Normal 5.0-7.5 Compreh [facility] Work Phone: Protein Ql (U) Negative Normal [facility] Work Phone: Comment on above: PATIENT WAS FASTINGP ERFORMED BY: Invrep Fqlfzy0730 [address] [place] [id number] Protein Ql (U) Negative Normal [facility]; [facility] Work Phone: Protein Test strip Ql (U) Negative Normal [facility] Work Phone: Specific gravity Relative Density (U) 1.031 1 Abnormal 1.005-1.03 0 [facility] Work Phone: Comment on above: PATIENT WAS FASTINGP ERFORMED BY: CB [facility] Hlpcah9054 [address] [place] [id number] Urobilinogen (U) [Mass/Vol] 0.2 mg/dL Normal 0.2-1.0 [facility]; [facility] Work Phone: Urobilinogen Test strip mass conc (U) 0.2 mg/dL Normal 0.2-1.0 Comprehensiv e [facility] Medicine Work Phone: Comment on above: PATIENT WAS FASTINGP ERFORMED BY: ALO LabNeuVerus Healthrp Waxfhn9112 [address] Wound Carein [place] [id number] Alex 05-02-2017 CNOV Office Visit (UCWSTR) BRIENMARTINEZ ([id number]) 1980 [facility] Rulfhscwkk23/10/17 8:45 AM PAIGE BOYER (JOSE) WSTR During your visit today, we recorded the following information about you: Temperature Pulse Respiration Blood pressure 97.3 degrees 76/minute 16/minute 122/76 Weight 107.5 kgPaige Boyer CNP 05/02/2017 9:16 AM SignedThe history is provided by the patient. No sign language interpreter was used.HPI Martinez Brien is a 36 year old male who presents today for CC of beesting on left hand This started Monday He is also having redness andswelling Symptoms are worsened by nothing He has tried benedryl. Riskfactors insect bite PMH not significant, no allergic reaction in the past.BP 122/76 Pulse 76 Temp 36.3 ?C (97.3 ?F) (Tympanic) Resp 16 Wt 107.5kg (237 lb)ALLERGIESNo Known AllergiesACTIVE PROBLEM LISTHypertensionBiliary ColicNo family history on file.Social History Marital status: Spouse name: Years of education: Number of children:Social History Main Topics Smoking status: Never SmokerReview of SystemsConstitutional: Negative. Negative for chills, fever and malaise/fatigue.HENT: Negative for congestion, ear pain and sore throat.Respiratory: Negative for cough, sputum production, shortness of breath andwheezing.Cardiovascula r: Negative for chest pain.Musculoskeletal: Negative for myalgias.Skin: Negative for rash.Neurological: Negative for headaches.Physical ExamConstitutional: He is oriented to person, place, and time and well-developed,well-melia shed, and in no distress. No distress.HENT:Head: Normocephalic and atraumatic.Eyes: Conjunctivae and EOM are normal. Pupils are equal, round, and reactive tolight.Neck: Normal range of motion. Neck supple.Pulmonary/Chest: Effort normal.Neurological: He is alert and oriented to person, place, and time.Skin: Skin is warm and dry. There is erythema (pruritic).Psychiatric: Affect normal.Nursing note and vitals reviewed.ASSESSMENT/PLAN: 1. Bee sting, undetermined intent, initial encounter - ICD9: 989.5, E980.9,ICD10: T63.444ABenedryl 50 mg at bedtimeZyrtec (cetirizine) 10 mg By mouth daily at bedtimeHandwashing before and after touching areaHydrocortisone ointment to affected sitesKeep area clean and drySite care-soap/water wash followed by antibacterial ointment and dressing 2-3 xa dayWatch for signs of infection which are redness, swelling and pus like drainageCool compress to sting site as needed- TRIAMCINOLONE ACETONIDE 0.1 % TOPICAL CREAMDiagnosis and treatment plan were discussed and questions were answered to thepatient's satisfaction. Pt acknowledged understanding of concepts and follow upplan.Specific signs and symptoms that would indicate the need for higher level ofcare were discussed in detail warranting prompt ER evaluation.Jerilyn Malik CNP 05/02/2017 9:07 AM SignedASSESSMENT/PLAN:1. Bee sting, undetermined intent, initial encounter - ICD9: 989.5, E980.9,ICD10: T63.444ABenedryl 50 mg at bedtimeZyrtec (cetirizine) 10 mg By mouth daily at bedtimeHandwashing before and after touching areaHydrocortisone ointment to affected sitesKeep area clean and drySite care-soap/water wash followed by antibacterial ointment and dressing 2-3 xa dayWatch for signs of infection which are redness, swelling and pus like drainageCool compress to sting site as needed- TRIAMCINOLONE ACETONIDE 0.1 % TOPICAL CREAMReferring Provider: SELF [200]Allergies As of Date: 05/02/2017(No Known Allergies)Date Reviewed: 05/02/2017Reviewed by: aPige Boyer - Fully AssessedReason for Visit: Insect Bite [929] Cmt: bee sting on left hand x monday, red and swollenPrimary Visit Diagnosis:Bee sting, undetermined intent, initial encounter [T63.444A]Order(s):triamc inolone acetonide (KENALOG) 0.1 % creamApply 1 application to affected area three times daily. Apply sparingly to area for rash/itching.Disp: 30 gRfl: 0Prescriptions as of 05/02/2017 Sig: * BENICAR ORAL Take by mouth. * PROTONIX ORAL Take by mouth. TRIAMCINOLONE ACETONIDE 0.1 %* Apply 1 application to affect*Problem List As Of Date 05/02/2017 Noted Resolved Hypertension [I10] INVALID FOR* Biliary colic [K80.50] INVALID FOR* Other instructions from your clinician: ASSESSMENT/PLAN: 1. Bee sting, undetermined intent, initial encounter - ICD9: 989.5, E980.9, ICD10: T63.444A Benedryl 50 mg at bedtime Zyrtec (cetirizine) 10 mg By mouth daily at bedtime Handwashing before and after touching area Hydrocortisone ointment to affected sites Keep area clean and dry Site care-soap/water wash followed by antibacterial ointment and dressing 2-3 x a day Watch for signs of infection which are redness, swelling and pus like drainage Cool compress to sting site as needed - TRIAMCINOLONE ACETONIDE 0.1 % TOPICAL CREAMPrescriptions ordered this encounter Disp Refills Start End TRIAMCINOLONE ACETONIDE 0.1 % TOPICA* 30 g 0 05/02/2017 Route: TOPICAL Sig: Apply 1 application to affected area three times daily. Apply sparingly to area for rash/itching.Medications Discontinued During This Encounter Benzonatate (TESSALON) 200 mg capsule 30 c* 0 12/31/2014 05/02/2017 Route: ORAL Sig: Take 200 mg by mouth three times daily as needed for Cough. Disc: Course of therapy completedEncounter Number: [id number] Status:Closed by PAIGE BOYER CNP on 05/02/17 [facility] PROGRESSon 05-02-2017 PROGRESS HNO ID: [id number] thor: Paige (Jose) FulkService: (none)Author Type: Nurse PractitionerType: Progress NotesFiled: 05/02/2017 9:16 AMNote Text:The history is provided by the patient. No sign language interpreter was used.HPI Martinez Tesfaye is a 36 year old male who presents today for CC ofbee sting on left hand This started Monday He is also having rednessand swelling Symptoms are worsened by nothing He has tried benedryl.Risk factors insect bite PMH not significant, no allergic reaction in thepast.BP 122/76 Pulse 76 Temp 36.3 ?C (97.3 ?F) (Tympanic) Resp 16 Wt107.5 kg (237 lb)ALLERGIESNo Known AllergiesACTIVE PROBLEM LISTHypertensionBiliary ColicNo family history on file.Social History Marital status: Spouse name: Years of education: Number of children:Social History Main Topics Smoking status: Never SmokerReview of SystemsConstitutional: Negative. Negative for chills, fever and malaise/fatigue.HENT: Negative for congestion, ear pain and sore throat.Respiratory: Negative for cough, sputum production, shortness of breathand wheezing.Cardiovascular: Negative for chest pain.Musculoskeletal: Negative for myalgias.Skin: Negative for rash.Neurological: Negative for headaches.Physical ExamConstitutional: He is oriented to person, place, and time andwell-developed, well-nourished, and in no distress. No distress.HENT:Head: Normocephalic and atraumatic.Eyes: Conjunctivae and EOM are normal. Pupils are equal, round, andreactive to light.Neck: Normal range of motion. Neck supple.Pulmonary/Chest: Effort normal.Neurological: He is alert and oriented to person, place, and time.Skin: Skin is warm and dry. There is erythema (pruritic).Psychiatric: Affect normal.Nursing note and vitals reviewed.ASSESSMENT/PLAN: 1. Bee sting, undetermined intent, initial encounter - ICD9: 989.5,E980.9, ICD10: T63.444ABenedryl 50 mg at bedtimeZyrtec (cetirizine) 10 mg By mouth daily at bedtimeHandwashing before and after touching areaHydrocortisone ointment to affected sitesKeep area clean and drySite care-soap/water wash followed by antibacterial ointment and dressing2-3 x a dayWatch for signs of infection which are redness, swelling and pus likedrainageCool compress to sting site as needed- TRIAMCINOLONE ACETONIDE 0.1 % TOPICAL CREAMDiagnosis and treatment plan were discussed and questions were answered tothe patient's satisfaction. Pt acknowledged understanding of concepts andfollow up plan.Specific signs and symptoms that would indicate the need for higher levelof care were discussed in detail warranting prompt ER evaluation.Paige Boyer, JOES Normal [facility] Culture, R/O Strep AOrdered By: Sampler Tester on 09-22-2016 CUSTREPA See Note Normal [facility] Work Phone: Comment on above: Order Date: 09/22/16 Order Info: [id number] - *Culture, R/O Strep A Swab Comments: Use to confirm or deny Rapid Strep results obtained in office procedure. PAOLA CultureNo Group A Beta Streptococcus isolated. * This cultures intended use is to screen for Beta Streptococcus A only. All other pathogens and potential pathogens will not be screened for or reported. If a complete workup of all potential pathogens is indicated an order for a routine throat culture is required. Culture, R/O Strep A See Note Normal Comp rehensive Internal Medicine Work Phone: Comment on above: Order Date: 09/22/16 Order Info: [id number] - *Culture, R/O Strep A Swab Comments: Use to confirm or deny Rapid Strep results obtained in office procedure. PAOLA CultureNo Group A Beta Streptococcus isolated. * This cultures intended use is to screen for Beta Streptococcus A only. All other pathogens and potential pathogens will not be screened for or reported. If a complete workup of all potential pathogens is indicated an order for a routine throat culture is required. [facility] Htebcijzrb[address] [facility] [place], [address] AMYLASE ([id number])Ordered By: S ystem Research Laboratory Specialist on 07-05-2016 Amylase enzyme act/vol 27 U/L Abnormal 31-124 [facility] Work Phone: Comment on above: PATIENT WAS FASTINGP ERFORMED BY: IntelligenceBank6370 [facility] [id number] CBC, PLATELETS & AUT DIFF ([id number])Ordered By: Sampler Tester on 07-05-2016 Basophils (Bld) [#/Vol] 0.1 {x10E3/uL} Normal 0.0-0.2 [facility] Work Phone: Comment on above: PATIENT WAS FASTINGP ERFORMED BY: IntelligenceBank6370 [facility] [id number] Basophils (Bld) [#/Vol] 0.1 10*3/uL Normal 0.0-0.2 [facility]; [facility] Work Phone: Basophils Auto #/vol (Bld) 0.1 {x10E3/uL} Normal 0.0-0.2 [facility] Work Phone: Basophils/100 WBC (Bld) 1 % Normal [facility] Work Phone: Comment on above: PATIENT WAS FASTINGP ERFORMED BY: E-Ductionbl[place] [id number] Basophils/100 WBC Auto (Bld) 1 % Normal [facility] Work Phone: Eosinophils (Bld) [#/Vol] 0.2 {x10E3/uL} Normal 0.0-0.4 [facility] Work Phone: Comment on above: PATIENT WAS FASTINGP ERFORMED BY: [place] 6222570 [facility] [id number] Eosinophils (Bld) [#/Vol] 0.2 10*3/uL Normal 0.0-0.4 [facility]; [facility] Work Phone: Eosinophils Auto #/vol (Bld) 0.2 {x10E3/uL} Normal 0.0-0.4 [facility] Work Phone: Eosinophils/100 WBC (Bld) 2 % Normal [facility] Work Phone: Comment on above: PATIENT WAS FASTINGP ERFORMED BY: [place] 6222570 [facility] [id number] Eosinophils/100 WBC Auto (Bld) 2 % Normal [facility] Work Phone: Erythrocyte distribution width (RBC) [Ratio] 14.0 % Normal 12.3-15.4 [facility] Work Phone: Comment on above: PATIENT WAS FASTINGP ERFORMED BY: [place] 6222570 [facility] [id number] Erythrocyte distribution width Auto Ratio (RBC) 14.0 % Normal 12.3-15.4 [facility] Work Phone: Hematocrit (Bld) [Volume fraction] 41.1 % Normal 37.5-51.0 [facility] Work Phone: Comment on above: PATIENT WAS FASTINGP ERFORMED BY: [place] 6222570 [facility] [id number] Hematocrit Auto Volume Fraction (Bld) 41.1 % Normal 37.5-51.0 [facility] Work Phone: Hemoglobin mass conc (Bld) 14.0 g/dL Normal 12.6-17.7 [facility] Work Phone: Comment on above: PATIENT WAS FASTINGP ERFORMED BY: [place] 6222570 [facility] [id number] Immature granulocytes #/vol (Bld) 0.0 {x10E3/uL} Normal 0.0-0.1 [facility] Work Phone: Comment on above: PATIENT WAS FASTINGP ERFORMED BY: [place] 6222570 [facility] [id number] Immature granulocytes (Bld) [#/Vol] 0.0 10*3/uL Normal 0.0-0.1 [facility]; [facility] Work Phone: Immature granulocytes/100 WBC (Bld) 0 % Normal [facility] Work Phone: Comment on above: PATIENT WAS FASTINGP ERFORMED BY: [place] 6222570 [facility] [id number] Lymphocytes (Bld) [#/Vol] 2.4 {x10E3/uL} Normal 0.7-3.1 [facility] Work Phone: Comment on above: PATIENT WAS FASTINGP ERFORMED BY: [facility]6370 [facility] [id number] Lymphocytes (Bld) [#/Vol] 2.4 10*3/uL Normal 0.7-3.1 [facility]; [facility] Work Phone: Lymphocytes Auto #/vol (Bld) 2.4 {x10E3/uL} Normal 0.7-3.1 [facility] Work Phone: Lymphocytes/100 WBC (Bld) 28 % Normal [facility] Work Phone: Comment on above: PATIENT WAS FASTINGP ERFORMED BY: [place] 6222570 [facility] [id number] Lymphocytes/100 WBC Auto (Bld) 28 % Normal [facility] Work Phone: MCH (RBC) [Entitic mass] 29.4 pg Normal 26.6-33.0 [facility] Work Phone: Comment on above: PATIENT WAS FASTINGP ERFORMED BY: ALO [employer] [facility]6[address] [facility] [id number] MCH Auto Entitic mass (RBC) 29.4 pg Normal 26.6-33.0 [facility] Work Phone: MCHC (RBC) [Mass/Vol] 34.1 g/dL Normal 31.5-35.7 [facility] Internal Medicine Work Phone: Comment on above: PATIENT WAS FASTINGP ERFORMED BY: ALO [facility]6[address] [facility] [id number] MCHC Auto mass conc (RBC) 34.1 g/dL Normal 31.5-35.7 [facility] Internal Medicine Work Phone: MCV (RBC) [Entitic vol] 86 fL Normal 79-97 [facility] Work Phone: Comment on above: PATIENT WAS FASTINGP ERFORMED BY: ALO [facility]6[address] [facility] [id number] MCV Auto Entitic volume (RBC) 86 fL Normal 79-97 [facility] Work Phone: Monocytes (Bld) [#/Vol] 0.6 {x10E3/uL} Normal 0.1-0.9 [facility] Work Phone: Comment on above: PATIENT WAS FASTINGP ERFORMED BY: [place] 6222570 [facility] [id number] Monocytes (Bld) [#/Vol] 0.6 10*3/uL Normal 0.1-0.9 [facility]; [facility] Work Phone: Monocytes Auto #/vol (Bld) 0.6 {x10E3/uL} Normal 0.1-0.9 [facility] Work Phone: Monocytes/100 WBC (Bld) 7 % Normal [facility] Work Phone: Comment on above: PATIENT WAS FASTINGP ERFORMED BY: [facility] Wbbqdb2269 [facility]in [place] [id number] Monocytes/100 WBC Auto (Bld) 7 % Normal [facility] Work Phone: Morphology Interp Pastor (Bld) Note: Normal [facility] Work Phone: Comment on above: Verified by microsco pic examination. PATIENT WAS FASTINGP ERFORMED BY: [facility] Zjqyae3383 [facility]in [place] [id number] Neutrophils (Bld) [#/Vol] 5.4 {x10E3/uL} Normal 1.4-7.0 [facility] Work Phone: Comment on above: PATIENT WAS FASTINGP ERFORMED BY: [facility] Cseyif5374 [facility] [id number] Neutrophils (Bld) [#/Vol] 5.4 10*3/uL Normal 1.4-7.0 [facility]; [facility] Work Phone: Neutrophils Auto #/vol (Bld) 5.4 {x10E3/uL} Normal 1.4-7.0 [facility] Work Phone: Neutrophils/100 WBC (Bld) 62 % Normal [facility] Work Phone: Comment on above: PATIENT WAS FASTINGP ERFORMED BY: [employer] [facility] Kvdcca2928 [facility] [id number] Neutrophils/100 WBC Auto (Bld) 62 % Normal [facility] Work Phone: Platelets (Bld) [#/Vol] 318 {x10E3/uL} Normal 150-379 [facility] Work Phone: Comment on above: PATIENT WAS FASTINGP ERFORMED BY: [facility] Zuwytv7397 [address] [facility]in [place] [id number] Platelets (Bld) [#/Vol] 318 10*3/uL Normal 150-379 [facility]; [facility] Work Phone: Platelets Auto #/vol (Bld) 318 {x10E3/uL} Normal 150-379 [facility] Work Phone: RBC (Bld) [#/Vol] 4.77 {x10E6/uL} Normal 4.14-5.80 [facility] Internal Medicine Work Phone: Comment on above: PATIENT WAS FASTINGP ERFORMED BY: ALO LabChante Brennan6370 [facility] ComputingFirstHealth [id number] RBC (Bld) [#/Vol] 4.77 10*6/uL Normal 4.14-5.80 [facility] Internal Medicine; [facility] Work Phone: RBC Auto #/vol (Bld) 4.77 {x10E6/uL} Normal 4.14-5.80 [facility] Work Phone: WBC (Bld) [#/Vol] 8.7 {x10E3/uL} Normal 3.4-10.8 [facility] Work Phone: Comment on above: PATIENT WAS FASTINGP ERFORMED BY: ALO LabChante MuseDghtmf4061 [place] [employer] ExchangeMission Family Health Center [id number] WBC (Bld) [#/Vol] 8.7 10*3/uL Normal 3.4-10.8 [facility] Internal Medicine; [facility] Work Phone: WBC Auto #/vol (Bld) 8.7 {x10E3/uL} Normal 3.4-10.8 [facility] Work Phone: LIPASE ([id number])Ordered By: stem Research Laboratory Specialist on 07-05-2016 Lipase enzyme act/vol 26 U/L Normal 0-59 [facility] Work Phone: Comment on above: PATIENT WAS FASTINGP ERFORMED BY: ALO LabChante MuseQnpukz4334 [address] [facility] ExchangeMission Family Health Center [id number] LIPID PANEL ([id number])Ordered B y: Sampler Tester on 07-05-2016 Cholesterol in HDL mass conc 33 mg/dL Abnormal [facility] Work Phone: Comment on above: PATIENT WAS FASTINGP ERFORMED BY: ALO [facility] Rhlzyg4358 [facility] [id number] Cholesterol in LDL mass conc 83 mg/dL Normal 0-99 [facility] Work Phone: Comment on above: PATIENT WAS FASTINGP ERFORMED BY: ALO Brennan6370 [facility] [id number] Cholesterol in LDL/Cholesterol in HDL mass ratio 2.5 {ratio_units} Normal 0.0-3.6 [facility] Work Phone: Comment on above: LDL/HDL Ratio Men Wo men 1/2 Avg.Risk 1.0 1.5 Avg.Risk 3.6 3.2 2X Avg.Risk 6.2 5.0 3X Avg.Risk 8.0 6.1 PATIENT WAS FASTINGP ERFORMED BY: ALO Brennan6370 [facility] [id number] Cholesterol in VLDL mass conc 18 mg/dL Normal 5-40 [facility] Work Phone: Comment on above: PATIENT WAS FASTINGP ERFORMED BY: ALO [place]elin6370 [facility] [id number] Cholesterol mass conc 134 mg/dL Normal 100-199 [facility] prehensive Internal Medicine Work Phone: Comment on above: PATIENT WAS FASTINGP ERFORMED BY: ALO Muselin6370 [facility] [id number] Triglyceride mass conc 88 mg/dL Normal 0-149 [facility] Work Phone: Comment on above: PATIENT WAS FASTINGP ERFORMED BY: ALO Brennan6370 [facility] [id number] METABOLIC PANEL, COMPREHENSI VE ([id number])Ordered By: Sampler Tester on 07-05-2016 Albumin mass conc 4.2 g/dL Normal 3.5-5.5 Compreh ensive Internal Medicine Work Phone: Comment on above: PATIENT WAS FASTINGP ERFORMED BY: ALO [place]elin6370 [facility] [id number] Albumin/Globulin mass ratio 1.6 {ratio} Normal 1.1-2.5 [facility] Work Phone: Comment on above: PATIENT WAS FASTINGP ERFORMED BY: ALO [facility] Kgqbeb7959 Mc[address]hee RoadDublin [place] [id number] ALP [Catalytic activity/Vol] 66 U/L Normal 39-117 [facility]; [facility] Work Phone: ALP enzyme act/vol 66 [iU]/L Normal 39-117 [facility] Internal Medicine Work Phone: Comment on above: PATIENT WAS FASTINGP ERFORMED BY: ALO [facility] Nxwwgo4264 Mcghee RoadDublin [place] [id number] ALT [Catalytic activity/Vol] 46 U/L Abnormal 0-44 [facility]; [facility] Work Phone: ALT enzyme act/vol 46 [iU]/L Abnormal 0-44 [facility] Internal Medicine Work Phone: Comment on above: PATIENT WAS FASTINGP ERFORMED BY: ALO [facility] Cvnkqg3746 Mcghee RoadDublin [place] [id number] AST [Catalytic activity/Vol] 17 U/L Normal 0-40 [facility]; [facility] Internal Medicine Work Phone: AST enzyme act/vol 17 [iU]/L Normal 0-40 [facility] Internal Medicine Work Phone: Comment on above: PATIENT WAS FASTINGP ERFORMED BY: ALO [facility] Gvicdt9908 [address]hee RoadDublin [place] [id number] Bilirubin mass conc 0.3 mg/dL Normal 0.0-1.2 [facility] Internal Medicine Work Phone: Comment on above: PATIENT WAS FASTINGP ERFORMED BY: [facility] Xnstgo0869 Mcghee RoadDublin [place] [id number] Calcium mass conc 9.0 mg/dL Normal 8.7-10.2 [facility] Internal Medicine Work Phone: Comment on above: PATIENT WAS FASTINGP ERFORMED BY: ALO [facility] Rwilei5588 Mcghee RoadDublin [place] [id number] Chloride molar conc 105 mmol/L Normal 96-106 [facility] Internal Medicine Work Phone: Comment on above: Please note refere nce interval change PATIENT WAS FASTINGP ERFORMED BY: ALO [facility] Xikvnt2860 [address]hee RoadDublin [place] [id number] CO2 molar conc 21 mmol/L Normal 18-29 Comprehens krystal Internal Medicine Work Phone: Comment on above: PATIENT WAS FASTINGP ERFORMED BY: ALO [facility] Gmmdlt7126 Mcghee Roadblin [place] [id number] Creatinine mass conc 0.78 mg/dL Normal 0.76-1.27 Comp rehensive Internal Medicine Work Phone: Comment on above: PATIENT WAS FASTINGP ERFORMED BY: ALO [facility] Nyaltu0444 [address] RoadDublin [place] [id number] GFR/1.73 sq M predicted among blacks CKD-EPI vol rate/area (S/P/Bld) 136 mL/min/1.73 Normal Comprehensiv e Internal Medicine Work Phone: Comment on above: PATIENT WAS FASTINGP ERFORMED BY: ALO [facility] Wpnoro2933 [address] RoadDuin [place] [id number] GFR/1.73 sq M predicted among non-blacks CKD-EPI vol rate/area (S/P/Bld) 118 mL/min/1.73 Normal [facility] Work Phone: Comment on above: PATIENT WAS FASTINGP ERFORMED BY: ALO [facility] Eanjpp4145 [address] [facility] [id number] Globulin (S) [Mass/Vol] 2.7 g/dL Normal 1.5-4.5 [facility] Work Phone: Comment on above: PATIENT WAS FASTINGP ERFORMED BY: ALO [facility] Utybvb1754 [address] RoadDublin [place] [id number] Globulin Calculated mass conc (S) 2.7 g/dL Normal 1.5-4.5 [facility] Work Phone: Glucose mass conc 88 mg/dL Normal 65-99 Compreh ensive Internal Medicine Work Phone: Comment on above: PATIENT WAS FASTINGP ERFORMED BY: [facility] Xqolcm[address] [facility] [place] [id number] Potassium molar conc 4.4 mmol/L Normal 3.5-5.2 Comp rehensive Internal Medicine Work Phone: Comment on above: PATIENT WAS FASTINGP ERFORMED BY: [facility] Jesjua7[address] [facility] [id number] Protein mass conc 6.9 g/dL Normal 6.0-8.5 Compreh ensive Internal Medicine Work Phone: Comment on above: PATIENT WAS FASTINGP ERFORMED BY: [facility] [facility] [place] [id number] Sodium molar conc 144 mmol/L Normal 134-144 Compreh ensive Internal Medicine Work Phone: Comment on above: Please note refere nce interval change PATIENT WAS FASTINGP ERFORMED BY: [facility]6370 [facility] [id number] Urea nitrogen mass conc 10 mg/dL Normal 6-20 [facility] Work Phone: Comment on above: PATIENT WAS FASTINGP ERFORMED BY: [facility]6[address] [facility] [id number] Urea nitrogen/Creatinine mass ratio 13 mg/mg Normal 8-19 [facility] Work Phone: Comment on above: PATIENT WAS FASTINGP ERFORMED BY: [facility]6[address] [facility] [id number] TSH (THYROID STIMULATING HOR LAURA) ([id number])Ordered By: Sampler Tester on 07-05-2016 Thyrotropin Qn 1.030 {uIU/mL} Normal 0.450-4.50 0 [facility] Work Phone: Comment on above: PATIENT WAS FASTINGP ERFORMED BY: [facility]6370 [facility] [id number] URINE KYLAH CULTURE-SADAF COL C OUNT ([id number])Ordered By: Sampler Tester on 07-05-2016 Bacteria identified Cx Nom (U) MUG Normal [facility] Work Phone: Comment on above: Mixed urogenital delvis ra1,000 Colonies/mL PATIENT NOT FASTINGP ERFORMED BY: [facility] Ptkwxz7071 [address] [facility] [id number] Information: SRC:SHELBY Bacteria identified Cx Nom (U) Final report Normal [facility] Work Phone: Comment on above: PATIENT NOT FASTINGP ERFORMED BY: [facility] Wlyukn[address] [facility] [id number] Information: SRC:SHELBY Urinalysis, Office ([id number])Or dered By: Zahira Almendarez on 07-05-2016 Bilirubin Ql (U) Negative Normal Comprehe nsive Internal Medicine Work Phone: Bilirubin Ql (U) Negative Normal Comprehe nsive Internal Medicine; [facility] Work Phone: Glucose Test strip (U) [Mass/Vol] Negative Normal [facility]; [facility] Work Phone: Glucose Test strip mass conc (U) Negative Normal [facility] Work Phone: Hemoglobin Ql (U) Hemolyzed Small Normal Co mprehensive Internal Medicine Work Phone: Hemoglobin Test strip Ql (U) Hemolyzed Small Normal [facility] Work Phone: Ketones Ql (U) Negative Normal Comprehens krystal Internal Medicine Work Phone: Ketones Ql (U) Negative Normal Comprehens k[facility]; [facility] Work Phone: Leukocyte esterase Test strip Ql (U) Negative Normal [facility] Work Phone: Leukocyte esterase Test strip Ql (U) Negative Normal [facility]; [facility] Work Phone: Nitrite Ql (U) Negative Normal Comprehens krystal Internal Medicine Work Phone: Nitrite Ql (U) Negative Normal Comprehens k[facility]; [facility] Work Phone: Nitrite Test strip Ql (U) Negative Normal [facility] Work Phone: pH (U) 5 [pH] Abnormal [facility] Work Phone: pH Test strip (U) 5 [pH] Abnormal Compreh ensive Internal Medicine Work Phone: Protein Ql (U) Trace Normal Comprehens krystal Internal Medicine Work Phone: Protein Test strip Ql (U) Trace Normal [facility] Work Phone: Specific gravity Relative Density (U) 1.030 1 Abnormal Comprehensi ve Internal Medicine Work Phone: Urobilinogen mass/time (24H U) Normal Normal [facility] Work Phone: GLUCOSE ([id number])Ordered By: S [employer] Specialist on 02-25-2016 Glucose mass conc 97 mg/dL Normal 65-99 Compreh ensive Internal Medicine Work Phone: Comment on above: PATIENT WAS FASTINGP ERFORMED BY: [employer]70 [facility] [id number] LIPID PANEL ([id number])Ordered B y: Sampler Tester on 02-25-2016 Cholesterol in HDL mass conc 51 mg/dL Normal [facility] Work Phone: Comment on above: According to ATP-III Guidelines, HDL-C >59 mg/dL is considered anegative risk factor for CHD. PATIENT WAS FASTINGP ERFORMED BY: [employer]6370 McgheeGrupanyaFirstHealth [id number] Information: [id number] Cholesterol in LDL mass conc 113 mg/dL Abnormal 0-99 [facility] Work Phone: Comment on above: PATIENT WAS FASTINGP ERFORMED BY: [employer]6370 [facility] [id number] Information: [id number] Cholesterol in LDL/Cholesterol in HDL mass ratio 2.2 {ratio_units} Normal 0.0-3.6 [facility] Work Phone: Comment on above: LDL/HDL Ratio Men Wo men 1/2 Avg.Risk 1.0 1.5 Avg.Risk 3.6 3.2 2X Avg.Risk 6.2 5.0 3X Avg.Risk 8.0 6.1 PATIENT WAS FASTINGP ERFORMED BY: ALO [facility]6[address] [facility] [id number] Information: [id number] Cholesterol in VLDL mass conc 24 mg/dL Normal 5-40 [facility] Work Phone: Comment on above: PATIENT WAS FASTINGP ERFORMED BY: [address] [id number] Information: [id number] Cholesterol mass conc 188 mg/dL Normal 100-199 [facility] prehensive Internal Medicine Work Phone: Comment on above: PATIENT WAS FASTINGP ERFORMED BY: [address] [id number] Information: [id number] Triglyceride mass conc 120 mg/dL Normal 0-149 [facility] Work Phone: Comment on above: PATIENT WAS FASTINGP ERFORMED BY: [address] [id number] Information: [id number] CBC, PLATELETS & MANUAL DIFF (79768)Ordered By: Sampler Tester on 01-04-2016 Basophils (Bld) [#/Vol] 0.0 {x10E3/uL} Normal 0.0-0.2 [facility] Work Phone: Comment on above: PATIENT NOT FASTINGP ERFORMED BY: [place] 6222570 [facility] [id number] Information: [id number] Basophils (Bld) [#/Vol] 0.0 10*3/uL Normal 0.0-0.2 [facility]; [facility] Work Phone: Basophils Auto #/vol (Bld) 0.0 {x10E3/uL} Normal 0.0-0.2 [facility] Work Phone: Basophils/100 WBC (Bld) 0 % Normal [facility] Work Phone: Comment on above: PATIENT NOT FASTINGP ERFORMED BY: [place] 6222570 [facility] [id number] Information: [id number] Basophils/100 WBC Auto (Bld) 0 % Normal [facility] Work Phone: Eosinophils (Bld) [#/Vol] 0.1 {x10E3/uL} Normal 0.0-0.4 [facility] Work Phone: Comment on above: PATIENT NOT FASTINGP ERFORMED BY: ALO [place] [id number] [facility] [id number] Information: [id number] Eosinophils (Bld) [#/Vol] 0.1 10*3/uL Normal 0.0-0.4 [facility]; [facility] Work Phone: Eosinophils Auto #/vol (Bld) 0.1 {x10E3/uL} Normal 0.0-0.4 [facility] Work Phone: Eosinophils/100 WBC (Bld) 2 % Normal [facility] Work Phone: Comment on above: PATIENT NOT FASTINGP ERFORMED BY: [address] [id number] Information: [id number] Eosinophils/100 WBC Auto (Bld) 2 % Normal [facility] Work Phone: Erythrocyte distribution width (RBC) [Ratio] 14.1 % Normal 12.3-15.4 [facility] Work Phone: Comment on above: PATIENT NOT FASTINGP ERFORMED BY: [address] [id number] Information: [id number] Erythrocyte distribution width Auto Ratio (RBC) 14.1 % Normal 12.3-15.4 [facility] Work Phone: Hematocrit (Bld) [Volume fraction] 42.8 % Normal 37.5-51.0 [facility] Work Phone: Comment on above: PATIENT NOT FASTINGP ERFORMED BY: ALO [address]Dublin [place] [id number] Information: [id number] Hematocrit Auto Volume Fraction (Bld) 42.8 % Normal 37.5-51.0 [facility] Internal Medicine Work Phone: Hemoglobin mass conc (Bld) 14.4 g/dL Normal 12.6-17.7 [facility] Work Phone: Comment on above: PATIENT NOT FASTINGP ERFORMED BY: [place] 6222570 [facility] [id number] Information: [id number] Immature granulocytes #/vol (Bld) 0.0 {x10E3/uL} Normal 0.0-0.1 [facility] Work Phone: Comment on above: PATIENT NOT FASTINGP ERFORMED BY: [address] [id number] Information: [id number] Immature granulocytes (Bld) [#/Vol] 0.0 10*3/uL Normal 0.0-0.1 [facility]; [facility] Work Phone: Immature granulocytes/100 WBC (Bld) 0 % Normal [facility] Work Phone: Comment on above: PATIENT NOT FASTINGP ERFORMED BY: [facility]6370 [facility] [id number] Information: [id number] Lymphocytes (Bld) [#/Vol] 2.2 {x10E3/uL} Normal 0.7-3.1 [facility] Work Phone: Comment on above: PATIENT NOT FASTINGP ERFORMED BY: [place] 6222570 [facility] [id number] Information: [id number] Lymphocytes (Bld) [#/Vol] 2.2 10*3/uL Normal 0.7-3.1 [facility]; [facility] Work Phone: Lymphocytes Auto #/vol (Bld) 2.2 {x10E3/uL} Normal 0.7-3.1 [facility] Work Phone: Lymphocytes/100 WBC (Bld) 29 % Normal [facility] Work Phone: Comment on above: PATIENT NOT FASTINGP ERFORMED BY: ALO [place] 2769670 [facility] [id number] Information: [id number] Lymphocytes/100 WBC Auto (Bld) 29 % Normal [facility] Work Phone: MCH (RBC) [Entitic mass] 29.0 pg Normal 26.6-33.0 [facility] Work Phone: Comment on above: PATIENT NOT FASTINGP ERFORMED BY: ALO [facility] Hospitaldeann MuseExscln[address] [id number] Information: [id number] MCH Auto Entitic mass (RBC) 29.0 pg Normal 26.6-33.0 [facility] Work Phone: MCHC (RBC) [Mass/Vol] 33.6 g/dL Normal 31.5-35.7 [facility] Internal Medicine Work Phone: Comment on above: PATIENT NOT FASTINGP ERFORMED BY: ALO [facility] Hospitaldeann MuseQbwwxo[address] [id number] Information: [id number] MCHC Auto mass conc (RBC) 33.6 g/dL Normal 31.5-35.7 [facility] Work Phone: MCV (RBC) [Entitic vol] 86 fL Normal 79-97 [facility] Work Phone: Comment on above: PATIENT NOT FASTINGP ERFORMED BY: [place] 6222570 [facility] [id number] Information: [id number] MCV Auto Entitic volume (RBC) 86 fL Normal 79-97 [facility] Internal Medicine Work Phone: Monocytes (Bld) [#/Vol] 0.5 {x10E3/uL} Normal 0.1-0.9 [facility] Work Phone: Comment on above: PATIENT NOT FASTINGP ERFORMED BY: ALO [facility] Wsqktc5197 [facility] [id number] Information: [id number] Monocytes (Bld) [#/Vol] 0.5 10*3/uL Normal 0.1-0.9 [facility]; [facility] Work Phone: Monocytes Auto #/vol (Bld) 0.5 {x10E3/uL} Normal 0.1-0.9 [facility] Work Phone: Monocytes/100 WBC (Bld) 7 % Normal [facility] Work Phone: Comment on above: PATIENT NOT FASTINGP ERFORMED BY: ALO TobiMndeann Gpmtgt4961 [facility] [id number] Information: [id number] Monocytes/100 WBC Auto (Bld) 7 % Normal [facility] Work Phone: Neutrophils (Bld) [#/Vol] 4.9 {x10E3/uL} Normal 1.4-7.0 [facility] Work Phone: Comment on above: PATIENT NOT FASTINGP ERFORMED BY: ALO TobiChante MuseEkrbfg1718 [facility] [id number] Information: [id number] Neutrophils (Bld) [#/Vol] 4.9 10*3/uL Normal 1.4-7.0 [facility]; [facility] Work Phone: Neutrophils Auto #/vol (Bld) 4.9 {x10E3/uL} Normal 1.4-7.0 [facility] Work Phone: Neutrophils/100 WBC (Bld) 62 % Normal [facility] Work Phone: Comment on above: PATIENT NOT FASTINGP ERFORMED BY: ALO [facility]6370 [facility] [id number] Information: [id number] Neutrophils/100 WBC Auto (Bld) 62 % Normal [facility] Work Phone: Platelets (Bld) [#/Vol] 296 {x10E3/uL} Normal 150-379 [facility] Work Phone: Comment on above: PATIENT NOT FASTINGP ERFORMED BY: ALO TobiChante Brennan6370 [facility] [id number] Information: [id number] Platelets (Bld) [#/Vol] 296 10*3/uL Normal 150-379 [facility]; [facility] Work Phone: Platelets Auto #/vol (Bld) 296 {x10E3/uL} Normal 150-379 [facility] Work Phone: RBC (Bld) [#/Vol] 4.96 {x10E6/uL} Normal 4.14-5.80 [facility] Internal Medicine Work Phone: Comment on above: PATIENT NOT FASTINGP ERFORMED BY: ALO TobiMndeann MuseYzskly2930 [facility] [id number] Information: [id number] RBC (Bld) [#/Vol] 4.96 10*6/uL Normal 4.14-5.80 [facility] Internal Medicine; [facility] Work Phone: RBC Auto #/vol (Bld) 4.96 {x10E6/uL} Normal 4.14-5.80 [facility] Work Phone: WBC (Bld) [#/Vol] 7.8 {x10E3/uL} Normal 3.4-10.8 [facility] Internal Medicine Work Phone: Comment on above: PATIENT NOT FASTINGP ERFORMED BY: ALO [facility] Lowveh9696 [facility] [id number] Information: [id number] WBC (Bld) [#/Vol] 7.8 10*3/uL Normal 3.4-10.8 [facility] Internal Medicine; [facility] Work Phone: WBC Auto #/vol (Bld) 7.8 {x10E3/uL} Normal 3.4-10.8 [facility] Work Phone: CBC W/AUTO DIFF WBC ([id number])O rdered By: Sampler Tester on 11-27-2015 Basophils (Bld) [#/Vol] 0.0 {x10E3/uL} Normal 0.0-0.2 [facility] Work Phone: Comment on above: PATIENT WAS FASTINGP ERFORMED BY: [employer] Jmuayp8440 [facility] [id number] Information: [id number] Basophils (Bld) [#/Vol] 0.0 10*3/uL Normal 0.0-0.2 [facility]; [facility] Work Phone: Basophils Auto #/vol (Bld) 0.0 {x10E3/uL} Normal 0.0-0.2 [facility] Work Phone: Basophils/100 WBC (Bld) 0 % Normal [facility] Work Phone: Comment on above: PATIENT WAS FASTINGP ERFORMED BY: [employer] Udlmzg2051 [facility] [id number] Information: [id number] Basophils/100 WBC Auto (Bld) 0 % Normal [facility] Work Phone: Eosinophils (Bld) [#/Vol] 0.3 {x10E3/uL} Normal 0.0-0.4 [facility] Work Phone: Comment on above: PATIENT WAS FASTINGP ERFORMED BY: HandelabraGamesEast Orange VA Medical CenterIvggzj3574 [facility] [id number] Information: [id number] Eosinophils (Bld) [#/Vol] 0.3 10*3/uL Normal 0.0-0.4 [facility]; [facility] Work Phone: Eosinophils Auto #/vol (Bld) 0.3 {x10E3/uL} Normal 0.0-0.4 [facility] Work Phone: Eosinophils/100 WBC (Bld) 2 % Normal [facility] Work Phone: Comment on above: PATIENT WAS FASTINGP ERFORMED BY: [place] 6222570 [facility] [id number] Information: [id number] Eosinophils/100 WBC Auto (Bld) 2 % Normal [facility] Work Phone: Erythrocyte distribution width (RBC) [Ratio] 14.3 % Normal 12.3-15.4 [facility] Work Phone: Comment on above: PATIENT WAS FASTINGP ERFORMED BY: [address] [id number] Information: [id number] Erythrocyte distribution width Auto Ratio (RBC) 14.3 % Normal 12.3-15.4 [facility] Work Phone: Hematocrit (Bld) [Volume fraction] 45.7 % Normal 37.5-51.0 [facility] Work Phone: Comment on above: PATIENT WAS FASTINGP ERFORMED BY: [address] [id number] Information: [id number] Hematocrit Auto Volume Fraction (Bld) 45.7 % Normal 37.5-51.0 [facility] Internal Medicine Work Phone: Hemoglobin mass conc (Bld) 15.3 g/dL Normal 12.6-17.7 [facility] Work Phone: Comment on above: PATIENT WAS FASTINGP ERFORMED BY: [place] 6222570 [facility] [id number] Information: [id number] Immature granulocytes #/vol (Bld) 0.0 {x10E3/uL} Normal 0.0-0.1 [facility] Work Phone: Comment on above: PATIENT WAS FASTINGP ERFORMED BY: [address] [id number] Information: [id number] Immature granulocytes (Bld) [#/Vol] 0.0 10*3/uL Normal 0.0-0.1 [facility]; [facility] Work Phone: Immature granulocytes/100 WBC (Bld) 0 % Normal [facility] Work Phone: Comment on above: PATIENT WAS FASTINGP ERFORMED BY: [address] [id number] Information: [id number] Lymphocytes (Bld) [#/Vol] 2.3 {x10E3/uL} Normal 0.7-3.1 [facility] Work Phone: Comment on above: PATIENT WAS FASTINGP ERFORMED BY: ALO [address] [id number] Information: [id number] Lymphocytes (Bld) [#/Vol] 2.3 10*3/uL Normal 0.7-3.1 [facility]; [facility] Work Phone: Lymphocytes Auto #/vol (Bld) 2.3 {x10E3/uL} Normal 0.7-3.1 [facility] Work Phone: Lymphocytes/100 WBC (Bld) 20 % Normal [facility] Work Phone: Comment on above: PATIENT WAS FASTINGP ERFORMED BY: [address] [id number] Information: [id number] Lymphocytes/100 WBC Auto (Bld) 20 % Normal [facility] Work Phone: MCH (RBC) [Entitic mass] 29.1 pg Normal 26.6-33.0 [facility] Work Phone: Comment on above: PATIENT WAS FASTINGP ERFORMED BY: [address] [id number] Information: [id number] MCH Auto Entitic mass (RBC) 29.1 pg Normal 26.6-33.0 [facility] Work Phone: MCHC (RBC) [Mass/Vol] 33.5 g/dL Normal 31.5-35.7 [facility] prehensive Internal Medicine Work Phone: Comment on above: PATIENT WAS FASTINGP ERFORMED BY: [place] 6222570 [facility] [id number] Information: [id number] MCHC Auto mass conc (RBC) 33.5 g/dL Normal 31.5-35.7 [facility] Work Phone: MCV (RBC) [Entitic vol] 87 fL Normal 79-97 [facility] Work Phone: Comment on above: PATIENT WAS FASTINGP ERFORMED BY: ALO [address] [id number] Information: [id number] MCV Auto Entitic volume (RBC) 87 fL Normal 79-97 [facility] Work Phone: Monocytes (Bld) [#/Vol] 1.2 {x10E3/uL} Abnormal 0.1-0.9 [facility] Work Phone: Comment on above: PATIENT WAS FASTINGP ERFORMED BY: [address] [id number] Information: [id number] Monocytes (Bld) [#/Vol] 1.2 10*3/uL Abnormal 0.1-0.9 [facility]; [facility] Work Phone: Monocytes Auto #/vol (Bld) 1.2 {x10E3/uL} Abnormal 0.1-0.9 [facility] Work Phone: Monocytes/100 WBC (Bld) 11 % Normal [facility] Work Phone: Comment on above: PATIENT WAS FASTINGP ERFORMED BY: [place] 6222570 [facility] [id number] Information: [id number] Monocytes/100 WBC Auto (Bld) 11 % Normal [facility] Work Phone: Neutrophils (Bld) [#/Vol] 7.9 {x10E3/uL} Abnormal 1.4-7.0 [facility] Work Phone: Comment on above: PATIENT WAS FASTINGP ERFORMED BY: ALO [facility] CenterChante MuseVlpkdr3480 [facility] [id number] Information: [id number] Neutrophils (Bld) [#/Vol] 7.9 10*3/uL Abnormal 1.4-7.0 [facility]; [facility] Work Phone: Neutrophils Auto #/vol (Bld) 7.9 {x10E3/uL} Abnormal 1.4-7.0 [facility] Work Phone: Neutrophils/100 WBC (Bld) 67 % Normal [facility] Work Phone: Comment on above: PATIENT WAS FASTINGP ERFORMED BY: ALO [facility] Hospitaldeann MuseJofhhd3327 [facility] [id number] Information: [id number] Neutrophils/100 WBC Auto (Bld) 67 % Normal [facility] Work Phone: Platelets (Bld) [#/Vol] 308 {x10E3/uL} Normal 150-379 [facility] Work Phone: Comment on above: PATIENT WAS FASTINGP ERFORMED BY: ALO [facility] Hospitaldeann Dfblhz1865 [facility] [id number] Information: [id number] Platelets (Bld) [#/Vol] 308 10*3/uL Normal 150-379 [facility]; [facility] Work Phone: Platelets Auto #/vol (Bld) 308 {x10E3/uL} Normal 150-379 [facility] Work Phone: RBC (Bld) [#/Vol] 5.26 {x10E6/uL} Normal 4.14-5.80 [facility] Internal Medicine Work Phone: Comment on above: PATIENT WAS FASTINGP ERFORMED BY: ALO [address]in [place] [id number] Information: [id number] RBC (Bld) [#/Vol] 5.26 10*6/uL Normal 4.14-5.80 [facility] Internal Medicine; [facility] Work Phone: RBC Auto #/vol (Bld) 5.26 {x10E6/uL} Normal 4.14-5.80 [facility] Internal Medicine Work Phone: WBC (Bld) [#/Vol] 11.8 {x10E3/uL} Abnormal 3.4-10.8 [facility] Internal Medicine Work Phone: Comment on above: PATIENT WAS FASTINGP ERFORMED BY: ALO [employer] Ddbxld3015 [facility] [id number] Information: [id number] WBC (Bld) [#/Vol] 11.8 10*3/uL Abnormal 3.4-10.8 [facility]; [facility] Work Phone: WBC Auto #/vol (Bld) 11.8 {x10E3/uL} Abnormal 3.4-10.8 [facility] Internal Medicine Work Phone: LIPID PANEL ([id number])Ordered B y: Sampler Tester on 11-27-2015 Cholesterol in HDL mass conc 54 mg/dL Normal [facility] Work Phone: Comment on above: According to ATP-III Guidelines, HDL-C >59 mg/dL is considered anegative risk factor for CHD. PATIENT WAS FASTINGP ERFORMED BY: ALO [employer] Cotfdg3387 [facility] [id number] Cholesterol in LDL mass conc 121 mg/dL Abnormal 0-99 [facility] Work Phone: Comment on above: PATIENT WAS FASTINGP ERFORMED BY: [employer] Bkkiip8955 [facility] [id number] Cholesterol in LDL/Cholesterol in HDL mass ratio 2.2 {ratio_units} Normal 0.0-3.6 [facility] Work Phone: Comment on above: LDL/HDL Ratio Men Wo men 1/2 Avg.Risk 1.0 1.5 Avg.Risk 3.6 3.2 2X Avg.Risk 6.2 5.0 3X Avg.Risk 8.0 6.1 PATIENT WAS FASTINGP ERFORMED BY: ALO [facility] Pngoyv0311 [facility] [id number] Cholesterol in VLDL mass conc 17 mg/dL Normal 5-40 [facility] Work Phone: Comment on above: PATIENT WAS FASTINGP ERFORMED BY: ALO [employer] Vcxkjy5175 [facility] [id number] Cholesterol mass conc 192 mg/dL Normal 100-199 [facility] prehensive Internal Medicine Work Phone: Comment on above: PATIENT WAS FASTINGP ERFORMED BY: ALO [facility] Dzxwrs1519 [facility] [id number] Triglyceride mass conc 85 mg/dL Normal 0-149 [facility] Work Phone: Comment on above: PATIENT WAS FASTINGP ERFORMED BY: ALO [facility] Lvebrk8744 [facility] [id number] METABOLIC PANEL, COMPREHENSI VE ([id number])Ordered By: Sampler Tester on 11-27-2015 Albumin mass conc 4.6 g/dL Normal 3.5-5.5 Compreh ensive Internal Medicine Work Phone: Comment on above: PATIENT WAS FASTINGP ERFORMED BY: ALO [facility] Uagbiv6244 [facility] [id number] Albumin/Globulin mass ratio 1.6 {ratio} Normal 1.1-2.5 [facility] Work Phone: Comment on above: PATIENT WAS FASTINGP ERFORMED BY: ALO [facility] Gtlneg5608 [facility] [id number] ALP [Catalytic activity/Vol] 71 U/L Normal 39-117 [facility]; [facility] Work Phone: ALP enzyme act/vol 71 [iU]/L Normal 39-117 [facility] Work Phone: Comment on above: PATIENT WAS FASTINGP ERFORMED BY: ALO [employer] Pqrqnr5702 [address] RoadDublin [place] [id number] ALT [Catalytic activity/Vol] 45 U/L Abnormal 0-44 [facility]; [facility] Internal Medicine Work Phone: ALT enzyme act/vol 45 [iU]/L Abnormal 0-44 [facility] Internal Medicine Work Phone: Comment on above: PATIENT WAS FASTINGP ERFORMED BY: ALO [employer] Sfvuqy8626 [address] RoadDublin [place] [id number] AST [Catalytic activity/Vol] 21 U/L Normal 0-40 [facility] Internal Medicine; [facility] Internal Medicine Work Phone: AST enzyme act/vol 21 [iU]/L Normal 0-40 [facility] Internal Medicine Work Phone: Comment on above: PATIENT WAS FASTINGP ERFORMED BY: ALO [facility] Cubpzy4894 [address] RoadDublin [place] [id number] Bilirubin mass conc 0.8 mg/dL Normal 0.0-1.2 [facility] Internal Medicine Work Phone: Comment on above: PATIENT WAS FASTINGP ERFORMED BY: ALO [employer] Bznsgd6263 [address] RoadDublin [place] [id number] Calcium mass conc 9.5 mg/dL Normal 8.7-10.2 [facility] Work Phone: Comment on above: PATIENT WAS FASTINGP ERFORMED BY: ALO LabCo Fneinn6999 [address] Roadblin [place] [id number] Chloride molar conc 97 mmol/L Normal 97-108 Compr [facility] Internal Medicine Work Phone: Comment on above: PATIENT WAS FASTINGP ERFORMED BY: [facility] Qzgbxv0485 [address] RoadDublin [place] [id number] CO2 molar conc 23 mmol/L Normal 18-29 Comprehens [facility] Internal Medicine Work Phone: Comment on above: PATIENT WAS FASTINGP ERFORMED BY: ALO [facility] Ngfljj8614 [address] RoadDublin [place] [id number] Creatinine mass conc 0.96 mg/dL Normal 0.76-1.27 Comp rehensive Internal Medicine Work Phone: Comment on above: PATIENT WAS FASTINGP ERFORMED BY: LabCo Boiisb[address] [facility]in [place] [id number] GFR/1.73 sq M predicted among blacks CKD-EPI vol rate/area (S/P/Bld) 120 mL/min/1.73 Normal Comprehensiv e Internal Medicine Work Phone: Comment on above: PATIENT WAS FASTINGP ERFORMED BY: [facility] Ncvsla[address] [facility] [id number] GFR/1.73 sq M predicted among non-blacks CKD-EPI vol rate/area (S/P/Bld) 103 mL/min/1.73 Normal [facility] Work Phone: Comment on above: PATIENT WAS FASTINGP ERFORMED BY: [facility]6370 [facility] [id number] Globulin (S) [Mass/Vol] 2.9 g/dL Normal 1.5-4.5 [facility] Work Phone: Comment on above: PATIENT WAS FASTINGP ERFORMED BY: [facility]Co Ughxxs3601 [facility] [id number] Globulin Calculated mass conc (S) 2.9 g/dL Normal 1.5-4.5 [facility] Work Phone: Glucose mass conc 86 mg/dL Normal 65-99 Compreh ensive Internal Medicine Work Phone: Comment on above: PATIENT WAS FASTINGP ERFORMED BY: [facility]Co Kvufus5594 [facility] [id number] Potassium molar conc 4.4 mmol/L Normal 3.5-5.2 Comp rehensive Internal Medicine Work Phone: Comment on above: PATIENT WAS FASTINGP ERFORMED BY: LabCo Yxjmgn3384 [facility] [id number] Protein mass conc 7.5 g/dL Normal 6.0-8.5 Compreh ensive Internal Medicine Work Phone: Comment on above: PATIENT WAS FASTINGP ERFORMED BY: [facility]6370 [facility] [id number] Sodium molar conc 137 mmol/L Normal 134-144 Compreh ensive Internal Medicine Work Phone: Comment on above: PATIENT WAS FASTINGP ERFORMED BY: [facility]Br[facility]6370 [facility] [id number] Urea nitrogen mass conc 12 mg/dL Normal 6-20 [facility] Work Phone: Comment on above: PATIENT WAS FASTINGP ERFORMED BY: [place] 6222570 [facility] [id number] Urea nitrogen/Creatinine mass ratio 13 mg/mg Normal 8-19 [facility] Work Phone: Comment on above: PATIENT WAS FASTINGP ERFORMED BY: [facility]6370 [facility] [id number] CBC W/AUTO DIFF WBC ([id number])O rdered By: Sampler Tester on 05-29-2015 Basophils (Bld) [#/Vol] 0.0 {x10E3/uL} Normal 0.0-0.2 [facility] Work Phone: Comment on above: PATIENT WAS FASTINGP ERFORMED BY: [place] 6222570 [facility] [id number] Information: [id number], [id number] Basophils (Bld) [#/Vol] 0.0 10*3/uL Normal 0.0-0.2 [facility]; [facility] Work Phone: Basophils Auto #/vol (Bld) 0.0 {x10E3/uL} Normal 0.0-0.2 [facility] Work Phone: Basophils/100 WBC (Bld) 0 % Normal [facility] Work Phone: Comment on above: PATIENT WAS FASTINGP ERFORMED BY: [facility] HospitalCoEast Orange VA Medical CenterBgotxu3448 [facility] [id number] Information: [id number], [id number] Basophils/100 WBC Auto (Bld) 0 % Normal [facility] Work Phone: Eosinophils (Bld) [#/Vol] 0.1 {x10E3/uL} Normal 0.0-0.4 [facility] Work Phone: Comment on above: PATIENT WAS FASTINGP ERFORMED BY: HandelabraGamesEast Orange VA Medical CenterBbfzbz6569 [facility] [id number] Information: [id number], [id number] Eosinophils (Bld) [#/Vol] 0.1 10*3/uL Normal 0.0-0.4 [facility]; [facility] Work Phone: Eosinophils Auto #/vol (Bld) 0.1 {x10E3/uL} Normal 0.0-0.4 [facility] Work Phone: Eosinophils/100 WBC (Bld) 1 % Normal [facility] Work Phone: Comment on above: PATIENT WAS FASTINGP ERFORMED BY: [facility] North HospitalNeuVerus HealthJoseph Ville 9336870 [facility] [id number] Information: [id number], [id number] Eosinophils/100 WBC Auto (Bld) 1 % Normal [facility] Work Phone: Erythrocyte distribution width (RBC) [Ratio] 13.9 % Normal 12.3-15.4 [facility] Work Phone: Comment on above: PATIENT WAS FASTINGP ERFORMED BY: [place] 6222570 [facility] [id number] Information: [id number], [id number] Erythrocyte distribution width Auto Ratio (RBC) 13.9 % Normal 12.3-15.4 [facility] Work Phone: Hematocrit (Bld) [Volume fraction] 44.2 % Normal 37.5-51.0 [facility] Work Phone: Comment on above: PATIENT WAS FASTINGP ERFORMED BY: [place] 6222570 [facility] [id number] Information: [id number], [id number] Hematocrit Auto Volume Fraction (Bld) 44.2 % Normal 37.5-51.0 Comprehens krystal Internal Medicine Work Phone: Hemoglobin mass conc (Bld) 15.2 g/dL Normal 12.6-17.7 [facility] Work Phone: Comment on above: PATIENT WAS FASTINGP ERFORMED BY: ALO [facility]6370 [facility] [id number] Information: [id number], [id number] Immature granulocytes #/vol (Bld) 0.0 {x10E3/uL} Normal 0.0-0.1 [facility] Work Phone: Comment on above: PATIENT WAS FASTINGP ERFORMED BY: ALO [place] 2769670 [facility] [id number] Information: [id number], [id number] Immature granulocytes (Bld) [#/Vol] 0.0 10*3/uL Normal 0.0-0.1 [facility]; [facility] Work Phone: Immature granulocytes/100 WBC (Bld) 0 % Normal [facility] Work Phone: Comment on above: PATIENT WAS FASTINGP ERFORMED BY: [facility]6370 [facility] [id number] Information: [id number], [id number] Lymphocytes (Bld) [#/Vol] 2.0 {x10E3/uL} Normal 0.7-3.1 [facility] Work Phone: Comment on above: PATIENT WAS FASTINGP ERFORMED BY: [facility]6370 [facility] [id number] Information: [id number], [id number] Lymphocytes (Bld) [#/Vol] 2.0 10*3/uL Normal 0.7-3.1 [facility]; [facility] Work Phone: Lymphocytes Auto #/vol (Bld) 2.0 {x10E3/uL} Normal 0.7-3.1 [facility] Work Phone: Lymphocytes/100 WBC (Bld) 23 % Normal [facility] Work Phone: Comment on above: PATIENT WAS FASTINGP ERFORMED BY: [facility]6370 [facility] [id number] Information: [id number], [id number] Lymphocytes/100 WBC Auto (Bld) 23 % Normal [facility] Work Phone: MCH (RBC) [Entitic mass] 29.6 pg Normal 26.6-33.0 [facility] Work Phone: Comment on above: PATIENT WAS FASTINGP ERFORMED BY: [place] 6222570 [facility] [id number] Information: [id number], [id number] MCH Auto Entitic mass (RBC) 29.6 pg Normal 26.6-33.0 [facility] Work Phone: MCHC (RBC) [Mass/Vol] 34.4 g/dL Normal 31.5-35.7 [facility] Internal Medicine Work Phone: Comment on above: PATIENT WAS FASTINGP ERFORMED BY: [facility]6370 [facility] [id number] Information: [id number], [id number] MCHC Auto mass conc (RBC) 34.4 g/dL Normal 31.5-35.7 [facility] Internal Medicine Work Phone: MCV (RBC) [Entitic vol] 86 fL Normal 79-97 [facility] Work Phone: Comment on above: PATIENT WAS FASTINGP ERFORMED BY: [place] 6222570 [facility] [id number] Information: [id number], [id number] MCV Auto Entitic volume (RBC) 86 fL Normal 79-97 [facility] Internal Medicine Work Phone: Monocytes (Bld) [#/Vol] 0.6 {x10E3/uL} Normal 0.1-0.9 [facility] Work Phone: Comment on above: PATIENT WAS FASTINGP ERFORMED BY: [place] 6222570 [facility] [id number] Information: [id number], [id number] Monocytes (Bld) [#/Vol] 0.6 10*3/uL Normal 0.1-0.9 [facility]; [facility] Work Phone: Monocytes Auto #/vol (Bld) 0.6 {x10E3/uL} Normal 0.1-0.9 [facility] Work Phone: Monocytes/100 WBC (Bld) 7 % Normal [facility] Work Phone: Comment on above: PATIENT WAS FASTINGP ERFORMED BY: [employer]70 [facility]aM[facility] [id number] Information: [id number], [id number] Monocytes/100 WBC Auto (Bld) 7 % Normal [facility] Work Phone: Neutrophils (Bld) [#/Vol] 6.1 {x10E3/uL} Normal 1.4-7.0 [facility] Work Phone: Comment on above: PATIENT WAS FASTINGP ERFORMED BY: [employer]6370 [facility]ceptaM[facility] [id number] Information: [id number], [id number] Neutrophils (Bld) [#/Vol] 6.1 10*3/uL Normal 1.4-7.0 [facility]; [facility] Work Phone: Neutrophils Auto #/vol (Bld) 6.1 {x10E3/uL} Normal 1.4-7.0 [facility] Work Phone: Neutrophils/100 WBC (Bld) 69 % Normal [facility] Work Phone: Comment on above: PATIENT WAS FASTINGP ERFORMED BY: [employer] Bhclnu2408 [address] [employer] ExchangeMission Family Health Center [id number] Information: [id number], [id number] Neutrophils/100 WBC Auto (Bld) 69 % Normal [facility] Work Phone: Platelets (Bld) [#/Vol] 332 {x10E3/uL} Normal 150-379 [facility] Work Phone: Comment on above: PATIENT WAS FASTINGP ERFORMED BY: [facility]6370 [facility] [id number] Information: [id number], [id number] Platelets (Bld) [#/Vol] 332 10*3/uL Normal 150-379 [facility]; [facility] Work Phone: Platelets Auto #/vol (Bld) 332 {x10E3/uL} Normal 150-379 [facility] Work Phone: RBC (Bld) [#/Vol] 5.14 {x10E6/uL} Normal 4.14-5.80 [facility] Internal Medicine Work Phone: Comment on above: PATIENT WAS FASTINGP ERFORMED BY: [facility]6370 [facility] [id number] Information: [id number], [id number] RBC (Bld) [#/Vol] 5.14 10*6/uL Normal 4.14-5.80 [facility] Centerensive [facility]; [facility] Work Phone: RBC Auto #/vol (Bld) 5.14 {x10E6/uL} Normal 4.14-5.80 [facility] Internal Medicine Work Phone: WBC (Bld) [#/Vol] 8.8 {x10E3/uL} Normal 3.4-10.8 [facility] Internal Medicine Work Phone: Comment on above: PATIENT WAS FASTINGP ERFORMED BY: [facility]6370 [facility] [id number] Information: [id number], [id number] WBC (Bld) [#/Vol] 8.8 10*3/uL Normal 3.4-10.8 [facility] Internal Medicine; [facility] Work Phone: WBC Auto #/vol (Bld) 8.8 {x10E3/uL} Normal 3.4-10.8 [facility] Work Phone: LIPID PANEL ([id number])Ordered B y: Sampler Tester on 05-29-2015 Cholesterol in HDL mass conc 54 mg/dL Normal [facility] Work Phone: Comment on above: According to ATP-III Guidelines, HDL-C >59 mg/dL is considered anegative risk factor for CHD. PATIENT WAS FASTINGP ERFORMED BY: CB [facility] Aopfae9274 [address]hee RoadDublin [place] [id number] Cholesterol in LDL mass conc 130 mg/dL Abnormal 0-99 [facility] Work Phone: Comment on above: Please note refere nce interval change PATIENT WAS FASTINGP ERFORMED BY: CB [facility] Jzduva8168 [address] RoadDublin [place] [id number] Cholesterol in LDL/Cholesterol in HDL mass ratio 2.4 {ratio_units} Normal 0.0-3.6 [facility] Work Phone: Comment on above: LDL/HDL Ratio Men Wo men 1/2 Avg.Risk 1.0 1.5 Avg.Risk 3.6 3.2 2X Avg.Risk 6.2 5.0 3X Avg.Risk 8.0 6.1 PATIENT WAS FASTINGP ERFORMED BY: CB [facility] Hjsaaf2388 Mc[address]hee RoadDublin [place] [id number] Cholesterol in VLDL mass conc 17 mg/dL Normal 5-40 [facility] Work Phone: Comment on above: PATIENT WAS FASTINGP ERFORMED BY: CB [facility] Pzjjkf3437 [address] AI ExchangeDublin [place] [id number] Cholesterol mass conc 201 mg/dL Abnormal 100-199 [facility] prehensive Internal Medicine Work Phone: Comment on above: Please note refere nce interval change PATIENT WAS FASTINGP ERFORMED BY: CB [facility] Ruvpwn8512 [address] RoadDublin [place] [id number] Triglyceride mass conc 87 mg/dL Normal 0-149 [facility] Work Phone: Comment on above: Please note refere nce interval change PATIENT WAS FASTINGP ERFORMED BY: CB [facility] Qbabsv0086 [address] RoadDublin [place] [id number] METABOLIC PANEL, COMPREHENSI VE ([id number])Ordered By: Sampler Tester on 05-29-2015 Albumin mass conc 4.4 g/dL Normal 3.5-5.5 [facility] Internal Medicine Work Phone: Comment on above: PATIENT WAS FASTINGP ERFORMED BY: ALO LabChante MuseYdpvyh9411 [facility] [id number] Albumin/Globulin mass ratio 1.5 {ratio} Normal 1.1-2.5 [facility] Work Phone: Comment on above: PATIENT WAS FASTINGP ERFORMED BY: ALO [employer] Ksinea60[address] [facility] [id number] ALP [Catalytic activity/Vol] 71 U/L Normal 39-117 [facility]; [facility] Internal Medicine Work Phone: ALP enzyme act/vol 71 [iU]/L Normal 39-117 [facility] Internal Medicine Work Phone: Comment on above: PATIENT WAS FASTINGP ERFORMED BY: ALO LabChante MuseUdjqun3731 [facility] [id number] ALT [Catalytic activity/Vol] 58 U/L Abnormal 0-44 [facility]; [facility] Work Phone: ALT enzyme act/vol 58 [iU]/L Abnormal 0-44 [facility] Internal Medicine Work Phone: Comment on above: PATIENT WAS FASTINGP ERFORMED BY: ALO LabChante MuseGavhok6452 [facility] [id number] AST [Catalytic activity/Vol] 38 U/L Normal 0-40 [facility]; [facility] Internal Medicine Work Phone: AST enzyme act/vol 38 [iU]/L Normal 0-40 [facility] Internal Medicine Work Phone: Comment on above: PATIENT WAS FASTINGP ERFORMED BY: ALO LabChante MuseSglaol[address] [facility] [id number] Bilirubin mass conc 0.5 mg/dL Normal 0.0-1.2 [facility] Internal Medicine Work Phone: Comment on above: PATIENT WAS FASTINGP ERFORMED BY: ALO [employer] Bonrty75[address] [facility] [id number] Calcium mass conc 9.5 mg/dL Normal 8.7-10.2 Compreh ensive Internal Medicine Work Phone: Comment on above: PATIENT WAS FASTINGP ERFORMED BY: LabTyler Alqvfp9[address] [facility] [place] [id number] Chloride molar conc 99 mmol/L Normal 97-108 Compr ehensive Internal Medicine Work Phone: Comment on above: PATIENT WAS FASTINGP ERFORMED BY: LabCo Zongwg[address] [facility]in [place] [id number] CO2 molar conc 20 mmol/L Normal 18-29 Comprehens krystal Internal Medicine Work Phone: Comment on above: PATIENT WAS FASTINGP ERFORMED BY: ALO [facility]obiCarondelet Health Edvqcx4691 [facility] [id number] Creatinine mass conc 0.83 mg/dL Normal 0.76-1.27 Comp rehensive Internal Medicine Work Phone: Comment on above: PATIENT WAS FASTINGP ERFORMED BY: LabCarondelet Health Pfozel8736 [facility] [id number] GFR/1.73 sq M predicted among blacks CKD-EPI vol rate/area (S/P/Bld) 135 mL/min/1.73 Normal Comprehensiv e Internal Medicine Work Phone: Comment on above: PATIENT WAS FASTINGP ERFORMED BY: LabCarondelet Health Ukxaob4147 [facility] [id number] GFR/1.73 sq M predicted among non-blacks CKD-EPI vol rate/area (S/P/Bld) 116 mL/min/1.73 Normal [facility] Work Phone: Comment on above: PATIENT WAS FASTINGP ERFORMED BY: ALO LabCarondelet Health Kayecq5974 [address] [facility] [id number] Globulin (S) [Mass/Vol] 2.9 g/dL Normal 1.5-4.5 [facility] Work Phone: Comment on above: PATIENT WAS FASTINGP ERFORMED BY: ALO LabCaronde[facility] Health Fokqjr8415 [facility] [id number] Globulin Calculated mass conc (S) 2.9 g/dL Normal 1.5-4.5 [facility] Work Phone: Glucose mass conc 89 mg/dL Normal 65-99 Compreh ensive Internal Medicine Work Phone: Comment on above: PATIENT WAS FASTINGP ERFORMED BY: ALO [facility] Las[facility] CenterTyler Ggwrze6312 [facility] [id number] Potassium molar conc 4.7 mmol/L Normal 3.5-5.2 Comp rehensive Internal Medicine Work Phone: Comment on above: PATIENT WAS FASTINGP ERFORMED BY: ALO [facility] Gakyqk6196 [facility] [id number] Protein mass conc 7.3 g/dL Normal 6.0-8.5 Compreh ensive Internal Medicine Work Phone: Comment on above: PATIENT WAS FASTINGP ERFORMED BY: ALO Caban Mvchyf3130 [facility] [id number] Sodium molar conc 138 mmol/L Normal 134-144 Compreh ensive Internal Medicine Work Phone: Comment on above: PATIENT WAS FASTINGP ERFORMED BY: ALO TobiChante MuseZhqtzg5767 [facility] [id number] Urea nitrogen mass conc 13 mg/dL Normal 6-20 [facility] Work Phone: Comment on above: PATIENT WAS FASTINGP ERFORMED BY: ALO [facility] Lasik CenterTyler Bidyup4442 [facility] [id number] Urea nitrogen/Creatinine mass ratio 16 mg/mg Normal 8-19 [facility] Work Phone: Comment on above: PATIENT WAS FASTINGP ERFORMED BY: ALO TobiTylerJoseph Ville 9336870 [facility] [id number] Microscopic ExaminationOrder ed By: Sampler Tester on 05-29-2015 Bacteria LM.HPF #/area (Urine sed) Few Normal [facility] Work Phone: Comment on above: PATIENT WAS FASTINGP ERFORMED BY: ALO [facility] Fqkumk5977 [address] RoadDublin [place] [id number] Epithelial cells LM.HPF #/area (Urine sed) None seen Normal 0 - 10 [facility] Work Phone: Comment on above: PATIENT WAS FASTINGP ERFORMED BY: [facility] Jyvqwf6777 [address] RoadDublin [place] [id number] Mucus LM Ql (Urine sed) Present Normal [facility] Work Phone: Mucus Ql (Urine sed) Present Normal Comp rehensive Internal Medicine Work Phone: Comment on above: PATIENT WAS FASTINGP ERFORMED BY: [facility] Tbmyvh0290 [address] RoadDublin [place] [id number] RBC LM.HPF #/area (Urine sed) None seen Normal 0 - 2 [facility] Internal Medicine Work Phone: Comment on above: PATIENT WAS FASTINGP ERFORMED BY: [facility] Ubtlwb4735 Mc[address]hee RoadDublin [place] [id number] WBC LM.HPF #/area (Urine sed) 0-5 Normal 0 - 5 [facility] Work Phone: Comment on above: PATIENT WAS FASTINGP ERFORMED BY: [facility] Agkrkd7419 Mcghee RoadDublin [place] [id number] TSH ([id number])Ordered By: Syste m Research Laboratory Specialist on 05-29-2015 Thyrotropin Qn 0.923 {uIU/mL} Normal 0.450-4.50 0 [facility] Work Phone: Comment on above: PATIENT WAS FASTINGP ERFORMED BY: [facility] Adhlph0612 [address]hee RoadDublin [place] [id number] URINALYSIS, W/ MICRO ([id number]) Ordered By: Sampler Tester on 05-29-2015 Appearance Nom (U) Clear Normal Compre hensive Internal Medicine Work Phone: Comment on above: PATIENT WAS FASTINGP ERFORMED BY: [facility] Uahtju2126 [address]hee RoadDublin [place] [id number] Bilirubin Ql (U) Negative Normal Comprehe nsive Internal Medicine Work Phone: Comment on above: PATIENT WAS FASTINGP ERFORMED BY: ALO LabChante MuseGuttkx7936 [address]hee RoadDublin [place] [id number] Bilirubin Ql (U) Negative Normal Comprehe nsive Internal Medicine; [facility] Work Phone: Color Nom (U) Yellow Normal Comprehensi ve Internal Medicine Work Phone: Comment on above: PATIENT WAS FASTINGP ERFORMED BY: ALO LabChante MuseZpxfgt2967 Mcghee RoadDublin [place] [id number] Glucose Ql (U) Negative Normal Comprehens krystal [facility] Medicine Work Phone: Comment on above: PATIENT WAS FASTINGP ERFORMED BY: ALO LabChante MuseYyntin3302 [address] RoadDublin [place] [id number] Glucose Ql (U) Negative Normal Comprehens [facility]; [facility] Work Phone: Hemoglobin Ql (U) Negative Normal Compreh ensive Internal Medicine Work Phone: Comment on above: PATIENT WAS FASTINGP ERFORMED BY: ALO BrittonC[facility]de[facility] Qmbzko8758 Mcghee RoadWakemed Cary Hospitalin [place] [id number] Hemoglobin Ql (U) Negative Normal Compreh ensive Internal Medicine; [facility] Work Phone: Hemoglobin Test strip Ql (U) Negative Normal [facility] Work Phone: Ketones Ql (U) Negative Normal Comprehens k[facility] Work Phone: Comment on above: PATIENT WAS FASTINGP ERFORMED BY: ALO BrittonCarondelet Health Rirvgx6218 Mcghee RoadWakemed Cary Hospitalin [place] [id number] Ketones Ql (U) Negative Normal Comprehens k[facility]; [facility] Work Phone: Leukocyte esterase Test strip Ql (U) Negative Normal [facility] Work Phone: Comment on above: PATIENT WAS FASTINGP ERFORMED BY: ALO LabTyler Cjcvft2337 [address] RoadDublin [place] [id number] Leukocyte esterase Test strip Ql (U) Negative Normal [facility]; [facility] Work Phone: Microscopic observation LM Nom (Urine sed) See below: Normal [facility] Work Phone: Comment on above: Microscopic was ry cated and was performed. PATIENT WAS FASTINGP ERFORMED BY: ALO Brennan[address] AI ExchangeMission Family Health Center [id number] Microscopic observation LM Nom (Urine sed) MICRON Normal [facility] Work Phone: Comment on above: Microscopic follows if indicated. PATIENT WAS FASTINGP ERFORMED BY: ALO Muselin[address] AI ExchangeMission Family Health Center [id number] Nitrite Ql (U) Negative Normal Comprehens k[facility] Work Phone: Comment on above: PATIENT WAS FASTINGP ERFORMED BY: ALO Muselin[address] AI ExchangeMission Family Health Center [id number] Nitrite Ql (U) Negative Normal Comprehens k[facility]; [facility] Work Phone: Nitrite Test strip Ql (U) Negative Normal [facility] Work Phone: pH (U) 5.5 [pH] Normal 5.0-7.5 [facility] Work Phone: Comment on above: PATIENT WAS FASTINGP ERFORMED BY: ALO Muselin[address] AI ExchangeMission Family Health Center [id number] pH Test strip (U) 5.5 [pH] Normal 5.0-7.5 Compreh ensive Internal Medicine Work Phone: Protein Ql (U) Negative Normal Comprehens k[facility] Work Phone: Comment on above: PATIENT WAS FASTINGP ERFORMED BY: ALO BrittonCarondelet Health Mckkzr[address] AI ExchangeMission Family Health Center [id number] Protein Ql (U) Negative Normal Comprehens k[facility]; [facility] Work Phone: Protein Test strip Ql (U) Negative Normal [facility] Work Phone: Specific gravity Relative Density (U) 1.024 1 Normal 1.005-1.03 0 [facility] Work Phone: Comment on above: PATIENT WAS FASTINGP ERFORMED BY: ALO Muselin6370 [facility] [id number] Urobilinogen (U) [Mass/Vol] 0.2 mg/dL Normal 0.2-1.0 [facility]; [facility] Work Phone: Urobilinogen Test strip mass conc (U) 0.2 mg/dL Normal 0.2-1.0 Comprehensiv e Internal Medicine Work Phone: Comment on above: PATIENT WAS FASTINGP ERFORMED BY: [facility] Chgsso9683 [facility] [id number] KYLAH CULTURE-OTHER ([id number])Ord ered By: Sampler Tester on 10-07-2014 Bacteria identified Respiratory culture Nom (Unsp spec) Final report Normal [facility] Work Phone: Comment on above: PATIENT NOT FASTINGP ERFORMED BY: [facility] Adullk0060 [facility] [id number] Information: SRC: THROAT Bacteria identified Respiratory culture Nom (Unsp spec) RRF Normal [facility] Work Phone: Comment on above: Routine respiratory kesha PATIENT NOT FASTINGP ERFORMED BY: [facility] Tpvvqf2042 [facility] [id number] Information: SRC: THROAT Rapid Strep Test, Office ([phone])on 10-07-2014 S. pyogenes Ag EIA Ql (Throat) Negative Normal [facility]; [facility] Work Phone: Rapid Strep Test, Office ([phone])Ordered By: Barbara Concepcion on 10-07-2014 S. pyogenes Ag IA Ql (Unsp spec) Negative Normal [facility] Work Phone: CBC W/Diff, AutomatedOrdered By: Sampler Tester on 08-29-2014 Absolute Lymph 2.28 {X10_3/ul} Normal 0.83-4.51 Compr ehensive Internal Medicine Work Phone: Absolute Neut 4.8 {X10_3/uL} Normal 2.0-7.7 Compreh ensive Internal Medicine Work Phone: Comment on above: Test performed at:[facility] [address] [place], [place] [id number] ; ordered by dr. lopez Basophils/100 WBC (Bld) 0.3 % Normal 0-1 [facility] Work Phone: Comment on above: Test performed at:[facility] [address] [place] [address] ; ordered by dr. lopez Basophils/100 WBC Auto (Bld) 0.3 % Normal 0-1 [facility] Work Phone: Eosinophils/100 WBC (Bld) 0.8 % Normal 0-5 [facility] Work Phone: Comment on above: Test performed at:[facility] [address] [place] [address] ; ordered by dr. lopez Eosinophils/100 WBC Auto (Bld) 0.8 % Normal 0-5 [facility] Work Phone: Erythrocyte distribution width (RBC) [Ratio] 12.8 % Normal 11.6-14.6 [facility] Work Phone: Comment on above: Test performed at:[facility] [address] [place] [address] ; ordered by dr. lopez Erythrocyte distribution width Auto Ratio (RBC) 12.8 % Normal 11.6-14.6 [facility] Work Phone: Hematocrit (Bld) [Volume fraction] 45.9 % Normal 40-54 [facility] Work Phone: Comment on above: Test performed at:[facility] [address] [place] [address] ; ordered by dr. lopez Hematocrit Auto Volume Fraction (Bld) 45.9 % Normal 40-54 [facility]erens k[facility] Work Phone: Hemoglobin mass conc (Bld) 15.8 g/dL Normal 13.0-16.5 [facility] Work Phone: Comment on above: Test performed at:[facility] [address] [place], [place] [id number] ; ordered by dr. lopez IM GRAN % 0.300 % Normal 0.0-0.9 [facility] Work Phone: Comment on above: IG% - Immature Granu locytes (promyelocytes, myelocytes andmetamyelocytes) > 1% indicates that a LEFT SHIFT is Present. Test performed at:[facility] [address] [place] [address] ; ordered by dr. lopez Lymphocytes (Bld) [#/Vol] 2.28 {X10_3/ul} Normal 0.83-4.51 [facility] Work Phone: Comment on above: Test performed at:[facility] [address] [place] [address] ; ordered by dr. lopez Lymphocytes/100 WBC (Bld) 29.2 % Normal 19-41 [facility] Work Phone: Comment on above: Test performed at:[facility] [address] [place] [address] ; ordered by dr. lopez Lymphocytes/100 WBC Auto (Bld) 29.2 % Normal 19-41 [facility] Work Phone: MCH (RBC) [Entitic mass] 29.5 pg Normal 27.0-32.0 [facility] Work Phone: Comment on above: Test performed at:[facility] [address] [place] [address] ; ordered by dr. lopez MCH Auto Entitic mass (RBC) 29.5 pg Normal 27.0-32.0 [facility] Work Phone: MCHC (RBC) [Mass/Vol] 34.4 {g/gl} Normal 32-36 Co mprehensive Internal Medicine Work Phone: Comment on above: Test performed at:[facility] [address] [place], [place] [id number] ; ordered by dr. lopez [facility] Auto mass conc (RBC) 34.4 {g/gl} Normal 32-36 [facility] Work Phone: MCV (RBC) [Entitic vol] 85.8 fL Normal 80-94 [facility] Work Phone: Comment on above: Test performed at:[facility] [address] [place] [address] ; ordered by dr. lopez MCV Auto Entitic volume (RBC) 85.8 fL Normal 80-94 [facility] Work Phone: Monocytes/100 WBC Auto (Bld) 8.2 % Normal 0-10 [facility] Work Phone: Comment on above: Test performed at:[facility] [address] [place] [address] ; ordered by dr. lopez Monocytes/100 WBC Auto (Bld) 8.2 % Normal 0-10 [facility] Work Phone: Neutrophils/100 WBC (Bld) 61.2 % Normal 47-70 [facility] Work Phone: Comment on above: Test performed at:[facility] [address] [place] [address] ; ordered by dr. lopez Neutrophils/100 WBC Auto (Bld) 61.2 % Normal 47-70 [facility] Work Phone: Platelet mean volume (Bld) [Entitic vol] 10.6 fL Normal 6.2-12.0 Comprehensiv e Internal Medicine Work Phone: Comment on above: Test performed at:[facility] [address] [place] [address] ; ordered by dr. lopez Platelet mean volume Auto Entitic volume (Bld) 10.6 fL Normal 6.2-12.0 [facility] Work Phone: Platelets (Bld) [#/Vol] 299 10*3/uL Normal 150-450 [facility] Work Phone: Comment on above: Test performed at:[facility] [address] [place] [address] ; ordered by dr. lopez Platelets Auto #/vol (Bld) 299 10*3/uL Normal 150-450 [facility] Work Phone: RBC (Bld) [#/Vol] 5.35 {M/mm3} Normal 4.6-6.2 [facility] Internal Medicine Work Phone: Comment on above: Test performed at:[facility] [address] [place] [address] ; ordered by dr. lopez RBC Auto #/vol (Bld) 5.35 {M/mm3} Normal 4.6-6.2 [facility] Internal Medicine Work Phone: RDW SD 40.0 fL Normal 35.1-43.9 [facility] Internal Medicine Work Phone: Comment on above: Test performed at:[facility] [address] [place] [address] ; ordered by dr. lopez WBC (Bld) [#/Vol] 7.8 10*3/uL Normal 4.4-11.0 [facility] Internal Medicine Work Phone: Comment on above: Test performed at:[facility] [address] [place] [address] ; ordered by dr. lopez WBC Auto #/vol (Bld) 7.8 10*3/uL Normal 4.4-11.0 [facility] Work Phone: CBC W/Diff, Automated 40.0 fL Normal 35.1-43.9 [facility] prehensive Internal Medicine Work Phone: CBC W/Diff, Automated 0.300 % Normal 0.0-0.9 [facility] Work Phone: Comment on above: IG% - Immature Granu locytes (promyelocytes, myelocytes andmetamyelocytes) > 1% indicates that a LEFT SHIFT is Present. CBC W/Diff, Automated 4.8 {X10_3/uL} Normal 2.0-7.7 [facility] Work Phone: CBC W/Diff, Automated 2.28 {X10_3/ul} Normal 0.83-4.51 [facility] Work Phone: LipaseOrdered By: Sebas Macias ager on 08-29-2014 Lipase 76 U/L Normal 70-290 [facility] Work Phone: Comment on above: Test performed at:[facility] [address] [place] [address] Liver ProfileOrdered By: Maria G tem Research Laboratory Specialist on 08-29-2014 Albumin mass conc 4.0 g/dL Normal 3.4-5.0 [facility] Internal Medicine Work Phone: Comment on above: Test performed at:[facility] [address] [place], [place] [id number] ALT enzyme act/vol 34 U/L Normal 12-78 [facility] Internal Medicine Work Phone: Comment on above: Test performed at:[facility] [address] [place] [address] AST enzyme act/vol 11 U/L Abnormal 15-37 [facility] Internal Medicine Work Phone: Comment on above: Test performed at:[facility] [address] [place], [place] [id number] Bilirubin mass conc 0.70 mg/dL Normal 0.00-4.00 [facility] Internal Medicine Work Phone: Comment on above: Test performed at:[facility] [address] [place] [address] Bilirubin.direct mass conc 0.14 mg/dL Normal 0.00-0.30 [facility] Work Phone: Comment on above: Test performed at:[facility] [address] [place] [address] Globulin Calculated mass conc (S) 4.2 g/dL Normal 2.7-4.2 [facility] Work Phone: Globulin mass conc (S) 4.2 g/dL Normal 2.7-4.2 [facility] Work Phone: Comment on above: Test performed at:[facility] [address] [place] [address] Protein mass conc 8.2 g/dL Normal 6.4-8.2 Compreh ensive Internal Medicine Work Phone: Comment on above: Test performed at:[facility] [address] [place] [address] Liver Profile 71 U/L Normal 50-136 Comprehensi ve Internal Medicine Work Phone: Comment on above: Test performed at:[facility] [address] [place] [address] Liver Profile 8.2 g/dL Normal 6.4-8.2 Comprehensi ve Internal Medicine Work Phone: Comment on above: Test performed at:[facility] [address] [place] [address] Liver Profile 4.2 g/dL Normal 2.7-4.2 Comprehensi ve Internal Medicine Work Phone: Comment on above: Test performed at:[facility] [address] [place] [address] AmylaseOrdered By: System Jonnie antony on 08-26-2014 Amylase 28 U/L Normal 25-115 [facility] Work Phone: Comment on above: Test performed at:[facility] [address] [place] [address] CBC W/Diff, AutomatedOrdered By: Sampler Tester on 08-26-2014 Absolute Lymph 2.70 {X10_3/ul} Normal 0.83-4.51 Compr ehensive Internal Medicine Work Phone: Absolute Neut 5.4 {X10_3/uL} Normal 2.0-7.7 Compreh ensive Internal Medicine Work Phone: Comment on above: Test performed at:[facility] [address] [place] [address] Basophils/100 WBC (Bld) 0.3 % Normal 0-1 [facility] Work Phone: Comment on above: Test performed at:[facility] [address] [place] [address] Basophils/100 WBC Auto (Bld) 0.3 % Normal 0-1 [facility] Work Phone: Eosinophils/100 WBC (Bld) 0.7 % Normal 0-5 [facility] Work Phone: Comment on above: Test performed at:[facility] [address] [place] [address] Eosinophils/100 WBC Auto (Bld) 0.7 % Normal 0-5 [facility] Work Phone: Erythrocyte distribution width (RBC) [Ratio] 13.0 % Normal 11.6-14.6 [facility] Work Phone: Comment on above: Test performed at:[facility] [address] [place] [address] Erythrocyte distribution width Auto Ratio (RBC) 13.0 % Normal 11.6-14.6 [facility] Work Phone: Hematocrit (Bld) [Volume fraction] 45.0 % Normal 40-54 [facility] Work Phone: Comment on above: Test performed at:[facility] [address] [place] [address] Hematocrit Auto Volume Fraction (Bld) 45.0 % Normal 40-54 Comprehens krystal Internal Medicine Work Phone: Hemoglobin mass conc (Bld) 15.2 g/dL Normal 13.0-16.5 [facility] Work Phone: Comment on above: Test performed at:[facility] [address] [place] [address] IM GRAN % 0.200 % Normal 0.0-0.9 [facility] Work Phone: Comment on above: IG% - Immature Granu locytes (promyelocytes, myelocytes andmetamyelocytes) > 1% indicates that a LEFT SHIFT is Present. Test performed at:[facility] [address] [place] [address] Lymphocytes (Bld) [#/Vol] 2.70 {X10_3/ul} Normal 0.83-4.51 [facility] Work Phone: Comment on above: Test performed at:[facility] [address] [place] [address] Lymphocytes/100 WBC (Bld) 30.3 % Normal 19-41 [facility] Work Phone: Comment on above: Test performed at:[facility] [address] [place] [address] Lymphocytes/100 WBC Auto (Bld) 30.3 % Normal 19-41 [facility] Work Phone: MCH (RBC) [Entitic mass] 29.0 pg Normal 27.0-32.0 [facility] Work Phone: Comment on above: Test performed at:[facility] [address] [place] [address] MCH Auto Entitic mass (RBC) 29.0 pg Normal 27.0-32.0 [facility] Work Phone: MCHC (RBC) [Mass/Vol] 33.8 {g/gl} Normal 32-36 Co mprehensive Internal Medicine Work Phone: Comment on above: Test performed at:[facility] [address] [place] [address] MCHC Auto mass conc (RBC) 33.8 {g/gl} Normal 32-36 [facility] Work Phone: MCV (RBC) [Entitic vol] 85.9 fL Normal 80-94 [facility] Work Phone: Comment on above: Test performed at:[facility] [address] [place] [address] MCV Auto Entitic volume (RBC) 85.9 fL Normal 80-94 [facility] Work Phone: Monocytes/100 WBC Auto (Bld) 7.5 % Normal 0-10 [facility] Work Phone: Comment on above: Test performed at:[facility] [address] [place] [address] Monocytes/100 WBC Auto (Bld) 7.5 % Normal 0-10 [facility] Work Phone: Neutrophils/100 WBC (Bld) 61.0 % Normal 47-70 [facility] Work Phone: Comment on above: Test performed at:[facility] [address] [place] [address] Neutrophils/100 WBC Auto (Bld) 61.0 % Normal 47-70 [facility] Work Phone: Platelet mean volume (Bld) [Entitic vol] 10.7 fL Normal 6.2-12.0 Comprehensiv e Internal Medicine Work Phone: Comment on above: Test performed at:[facility] [address] [place] [address] Platelet mean volume Auto Entitic volume (Bld) 10.7 fL Normal 6.2-12.0 [facility] Work Phone: Platelets (Bld) [#/Vol] 301 10*3/uL Normal 150-450 [facility] Work Phone: Comment on above: Test performed at:[facility] [address] [place] [address] Platelets Auto #/vol (Bld) 301 10*3/uL Normal 150-450 [facility] Work Phone: RBC (Bld) [#/Vol] 5.24 {M/mm3} Normal 4.6-6.2 [facility] Internal Medicine Work Phone: Comment on above: Test performed at:[facility] [address] [place] [address] RBC Auto #/vol (Bld) 5.24 {M/mm3} Normal 4.6-6.2 Co [facility] Internal Medicine Work Phone: RDW SD 40.9 fL Normal 35.1-43.9 [facility] Internal Medicine Work Phone: Comment on above: Test performed at:[facility] [address] [place] [address] WBC (Bld) [#/Vol] 8.9 10*3/uL Normal 4.4-11.0 [facility] Internal Medicine Work Phone: Comment on above: Test performed at:[facility] [address] [place] [address] WBC Auto #/vol (Bld) 8.9 10*3/uL Normal 4.4-11.0 [facility] Internal Medicine Work Phone: CBC W/Diff, Automated 2.70 {X10_3/ul} Normal 0.83-4.51 [facility] Work Phone: CBC W/Diff, Automated 5.4 {X10_3/uL} Normal 2.0-7.7 [facility] Work Phone: CBC W/Diff, Automated 0.200 % Normal 0.0-0.9 [facility] Internal Medicine Work Phone: Comment on above: IG% - Immature Granu locytes (promyelocytes, myelocytes andmetamyelocytes) > 1% indicates that a LEFT SHIFT is Present. CBC W/Diff, Automated 40.9 fL Normal 35.1-43.9 Com prehensive Internal Medicine Work Phone: CRPOrdered By: System Manage r on 08-26-2014 CRP [Mass/Vol] 4.49 mg/L Abnormal 0.0-3.0 [facility] Work Phone: Comment on above: C-Reactive Protein ( CRP) provides useful information for thediagnosis, therapy and monitoring of inflammatory processesand associated diseases. For the evaluation of Relative Riskfor Cardiovascular Disease, a High Sensitivity CRP (HSCRP)should be ordered. Test performed at:[facility] [address] [place] [address] CRP 4.49 mg/L Abnormal 0.0-3.0 [facility] Internal Medicine Work Phone: Comment on above: C-Reactive Protein ( CRP) provides useful information for thediagnosis, therapy and monitoring of inflammatory processesand associated diseases. For the evaluation of Relative Riskfor Cardiovascular Disease, a High Sensitivity CRP (HSCRP)should be ordered. Comprehensive Metabolic Prof ilOrdered By: Sampler Tester on 08-26-2014 Albumin mass conc 4.2 g/dL Normal 3.4-5.0 [facility] Internal Medicine Work Phone: Comment on above: Test performed at:[facility] [address] [place] [address] Albumin/Globulin mass ratio 1.1 {RATIO} Normal 0.9-2.4 [facility] Internal Medicine Work Phone: Comment on above: Test performed at:[facility] [address] [place] [address] ALT enzyme act/vol 34 U/L Normal 12-78 [facility] Internal Medicine Work Phone: Comment on above: Test performed at:[facility] [address] [place] [address] AST enzyme act/vol 12 U/L Abnormal 15-37 [facility] Internal Medicine Work Phone: Comment on above: Test performed at:[facility] [address] [place] [address] Bilirubin mass conc 0.40 mg/dL Normal 0.00-4.00 Compr ensive Internal Medicine Work Phone: Comment on above: Test performed at:[facility] [address] [place] [address] Calcium mass conc 9.4 mg/dL Normal 8.5-10.1 Compreh ensive Internal Medicine Work Phone: Comment on above: Test performed at:[facility] [address] [place] [address] Chloride molar conc 103 mmol/L Normal 98-107 Compr ensive Internal Medicine Work Phone: Comment on above: Test performed at:[facility] [address] [place] [address] CO2 molar conc 29.0 mmol/L Normal 21.0-32.0 [facility]hen [facility] Internal [facility] Work Phone: Comment on above: Test performed at:[facility] [address] [place] [address] Creatinine mass conc 0.9 mg/dL Normal 0.8-1.3 [facility] Work Phone: Comment on above: Test performed at:[facility] [address] [place] [address] GFR/1.73 sq M predicted among non-blacks MDRD vol rate/area (S/P/Bld) 104 mL/min/{1.73_m2} Normal Compreh ensive Internal Medicine Work Phone: Comment on above: Test performed at:[facility] [address] [place] [address] Globulin Calculated mass conc (S) 3.7 g/dL Normal 2.7-4.2 [facility] Work Phone: Globulin mass conc (S) 3.7 g/dL Normal 2.7-4.2 [facility] Work Phone: Comment on above: Test performed at:[facility] [address] [place], [place] [id number] Glucose mass conc 67 mg/dL Abnormal 70-110 Compreh ensive Internal Medicine Work Phone: Comment on above: Test performed at:[facility] [address] [place] [address] Potassium molar conc 4.3 mmol/L Normal 3.5-5.1 Comp rehensive Internal Medicine Work Phone: Comment on above: Test performed at:[facility] [address] [place] [address] Protein mass conc 7.9 g/dL Normal 6.4-8.2 Compreh ensive [facility] Medicine Work Phone: Comment on above: Test performed at:[facility] [address] [place] [address] Sodium molar conc 136 mmol/L Normal 136-145 Compreh ensive Internal Medicine Work Phone: Comment on above: Test performed at:[facility] [address] [place] [address] Urea nitrogen mass conc 11 mg/dL Normal 7-18 [facility] Work Phone: Comment on above: Test performed at:[facility] [address] [place] [address] Comprehensive Metabolic Profil 4 1 Abnormal 5-15 [facility] Work Phone: Comment on above: Test performed at:[facility] [address] [place] [address] [facility] Metabolic Profil 68 U/L Normal 50-136 [facility] Work Phone: Comment on above: Test performed at:[facility] [address] [place] [address] [facility] Metabolic Profil 1.1 {RATIO} Normal 0.9-2.4 [facility] Work Phone: Comprehensive Metabolic Profil 12.2 {RATIO} Normal 10-20 [facility] Work Phone: Comment on above: Test performed at:[facility] [address] [place] [address] [facility] Metabolic Profil 126 mL/min Normal [facility] Work Phone: Comment on above: Test performed at:[facility] [address] [place] [address] Comprehensive Metabolic Profil 7.9 g/dL Normal 6.4-8.2 [facility] Work Phone: Comment on above: Test performed at:[facility] [address] [place] [address] Comprehensive Metabolic Profil 3.7 g/dL Normal 2.7-4.2 [facility] Work Phone: Comment on above: Test performed at:[facility] [address] [place] [address] Erythrocyte Sed RateOrdered By: Sampler Tester on 08-26-2014 SED RATE 7 mm/h Normal 0-15 [facility] Work Phone: Erythrocyte Sed Rate 7 mm/h Normal 0-15 Comp rehensive Internal Medicine Work Phone: Comment on above: Test performed at:[facility] [address] [place] [address] LipaseOrdered By: System Man ager on 08-26-2014 Lipase 96 U/L Normal 70-290 [facility] Work Phone: Comment on above: Test performed at:[facility] [address] [place] [address] Urinalysis, Office ([id number])Or dered By: Billie Collier on 08-26-2014 Bilirubin Ql (U) Negative Normal Comprehe nsive Internal Medicine Work Phone: Bilirubin Ql (U) Negative Normal Comprehe nsive Internal Medicine; [facility] Work Phone: Glucose Test strip (U) [Mass/Vol] Negative Normal [facility]; [facility] Work Phone: Glucose Test strip mass conc (U) Negative Normal [facility] Work Phone: Hemoglobin Ql (U) Negative Normal Compreh ensive [facility] Medicine Work Phone: Hemoglobin Ql (U) Negative Normal Compreh ensive [facility]; [facility] Work Phone: Hemoglobin Test strip Ql (U) Negative Normal [facility] Work Phone: Ketones Ql (U) Negative Normal Comprehens krystal [facility] Work Phone: Ketones Ql (U) Negative Normal Comprehens krystal [facility]; [facility] Work Phone: Leukocyte esterase Test strip Ql (U) Negative Normal [facility] Work Phone: Leukocyte esterase Test strip Ql (U) Negative Normal [facility]; [facility] Work Phone: Nitrite Ql (U) Negative Normal Comprehens k[facility] Work Phone: Nitrite Ql (U) Negative Normal Comprehens [facility]; [facility] Work Phone: Nitrite Test strip Ql (U) Negative Normal [facility] Work Phone: pH (U) 6.0 [pH] Normal [facility] Work Phone: Comment on above: 5.5 pH Test strip (U) 6.0 [pH] Normal Compreh ensive [facility] Medicine Work Phone: Comment on above: 5.5 Protein Ql (U) Negative Normal Comprehens [facility] Work Phone: Protein Ql (U) Negative Normal Comprehens [facility]; [facility] Work Phone: Protein Test strip Ql (U) Negative Normal [facility] Work Phone: Specific gravity Relative Density (U) 1.025 1 Normal Comprehensi ve Internal Medicine Work Phone: Urobilinogen mass/time (24H U) Normal Normal [facility] Work Phone: Throat Culture ([id number])Ordere d By: Sampler Tester on 09-25-2013 Bacteria identified Respiratory culture Nom (Unsp spec) RRF Normal [facility] Work Phone: Comment on above: Routine respiratory kesha PATIENT NOT FASTINGP ERFORMED BY: ALO [facility] Xhjfzi9828 [facility] [id number] Information: SRC:ELLIE [id number] Bacteria identified Respiratory culture Nom (Unsp spec) Final report Normal [facility] Work Phone: Comment on above: PATIENT NOT FASTINGP ERFORMED BY: ALO [facility] Ajmlro2108 [facility] [id number] Information: SRC:ELLIE [id number] CBC WITH MANUAL DIFF ([id number]) Ordered By: Sampler Tester on 05-22-2013 Basophils (Bld) [#/Vol] 0.0 {x10E3/uL} Normal 0.0-0.2 [facility] Work Phone: Comment on above: PATIENT WAS FASTINGP ERFORMED BY: ALO [facility] Naptgd7379 [facility] [id number] Information: [id number] Basophils (Bld) [#/Vol] 0.0 10*3/uL Normal 0.0-0.2 [facility]; [facility] Work Phone: Basophils Auto #/vol (Bld) 0.0 {x10E3/uL} Normal 0.0-0.2 [facility] Work Phone: Basophils/100 WBC (Bld) 0 % Normal 0-3 [facility] Work Phone: Comment on above: PATIENT WAS FASTINGP ERFORMED BY: ALO [facility] Arltxp6705 [facility] [id number] Information: [id number] Basophils/100 WBC Auto (Bld) 0 % Normal 0-3 [facility] Work Phone: Eosinophils (Bld) [#/Vol] 0.1 {x10E3/uL} Normal 0.0-0.4 [facility] Work Phone: Comment on above: PATIENT WAS FASTINGP ERFORMED BY: ALO [place] [id number] [facility] [id number] Information: [id number] Eosinophils (Bld) [#/Vol] 0.1 10*3/uL Normal 0.0-0.4 [facility]; [facility] Work Phone: Eosinophils Auto #/vol (Bld) 0.1 {x10E3/uL} Normal 0.0-0.4 [facility] Work Phone: Eosinophils/100 WBC (Bld) 2 % Normal 0-5 [facility] Work Phone: Comment on above: PATIENT WAS FASTINGP ERFORMED BY: ALO [place] 2769670 [facility] [id number] Information: [id number] Eosinophils/100 WBC Auto (Bld) 2 % Normal 0-5 [facility] Work Phone: Erythrocyte distribution width (RBC) [Ratio] 13.9 % Normal 12.3-15.4 [facility] Work Phone: Comment on above: PATIENT WAS FASTINGP ERFORMED BY: ALO [facility]6370 [facility] [id number] Information: [id number] Erythrocyte distribution width Auto Ratio (RBC) 13.9 % Normal 12.3-15.4 [facility] Work Phone: Hematocrit (Bld) [Volume fraction] 46.3 % Normal 37.5-51.0 [facility] Work Phone: Comment on above: PATIENT WAS FASTINGP ERFORMED BY: ALO [place] 2769670 [facility] [id number] Information: [id number] Hematocrit Auto Volume Fraction (Bld) 46.3 % Normal 37.5-51.0 [facility] Work Phone: Hemoglobin mass conc (Bld) 15.8 g/dL Normal 12.6-17.7 [facility] Work Phone: Comment on above: PATIENT WAS FASTINGP ERFORMED BY: ALO [place] 2769670 [facility] [id number] Information: [id number] Immature granulocytes #/vol (Bld) 0.0 {x10E3/uL} Normal 0.0-0.1 [facility] Work Phone: Comment on above: PATIENT WAS FASTINGP ERFORMED BY: ALO [address] [id number] Information: [id number] Immature granulocytes (Bld) [#/Vol] 0.0 10*3/uL Normal 0.0-0.1 [facility]; [facility] Work Phone: Immature granulocytes/100 WBC (Bld) 0 % Normal 0-2 [facility] Work Phone: Comment on above: PATIENT WAS FASTINGP ERFORMED BY: ALO [facility]6370 [facility] [id number] Information: [id number] Lymphocytes (Bld) [#/Vol] 2.3 {x10E3/uL} Normal 0.7-3.1 [facility] Work Phone: Comment on above: PATIENT WAS FASTINGP ERFORMED BY: [address] [id number] Information: [id number] Lymphocytes (Bld) [#/Vol] 2.3 10*3/uL Normal 0.7-3.1 [facility]; [facility] Work Phone: Lymphocytes Auto #/vol (Bld) 2.3 {x10E3/uL} Normal 0.7-3.1 [facility] Work Phone: Lymphocytes/100 WBC (Bld) 32 % Normal 14-46 [facility] Work Phone: Comment on above: PATIENT WAS FASTINGP ERFORMED BY: [facility]6370 [facility] [id number] Information: [id number] Lymphocytes/100 WBC Auto (Bld) 32 % Normal 14-46 [facility] Work Phone: MCH (RBC) [Entitic mass] 29.2 pg Normal 26.6-33.0 [facility] Work Phone: Comment on above: PATIENT WAS FASTINGP ERFORMED BY: [address] [id number] Information: [id number] MCH Auto Entitic mass (RBC) 29.2 pg Normal 26.6-33.0 [facility] Work Phone: MCHC (RBC) [Mass/Vol] 34.1 g/dL Normal 31.5-35.7 [facility] Internal [facility] Work Phone: Comment on above: PATIENT WAS FASTINGP ERFORMED BY: [address] [id number] Information: [id number] MCHC Auto mass conc (RBC) 34.1 g/dL Normal 31.5-35.7 [facility] Internal Medicine Work Phone: MCV (RBC) [Entitic vol] 85 fL Normal 79-97 [facility] Work Phone: Comment on above: PATIENT WAS FASTINGP ERFORMED BY: [address] [id number] Information: [id number] MCV Auto Entitic volume (RBC) 85 fL Normal 79-97 [facility] Internal Medicine Work Phone: Monocytes (Bld) [#/Vol] 0.5 {x10E3/uL} Normal 0.1-0.9 [facility] Internal Medicine Work Phone: Comment on above: PATIENT WAS FASTINGP ERFORMED BY: [place] [address]2570 [facility] [id number] Information: [id number] Monocytes (Bld) [#/Vol] 0.5 10*3/uL Normal 0.1-0.9 [facility]; [facility] Work Phone: Monocytes Auto #/vol (Bld) 0.5 {x10E3/uL} Normal 0.1-0.9 [facility] Work Phone: Monocytes/100 WBC (Bld) 7 % Normal 4-12 [facility] Work Phone: Comment on above: PATIENT WAS FASTINGP ERFORMED BY: [employer]70 [address] [employer] ExchangeMission Family Health Center [id number] Information: [id number] Monocytes/100 WBC Auto (Bld) 7 % Normal 4-12 [facility] Work Phone: Neutrophils (Bld) [#/Vol] 4.3 {x10E3/uL} Normal 1.4-7.0 [facility] Work Phone: Comment on above: PATIENT WAS FASTINGP ERFORMED BY: [employer]70 [address] [employer] ExchangeMission Family Health Center [id number] Information: [id number] Neutrophils (Bld) [#/Vol] 4.3 10*3/uL Normal 1.4-7.0 [facility]; [facility] Work Phone: Neutrophils Auto #/vol (Bld) 4.3 {x10E3/uL} Normal 1.4-7.0 [facility] Work Phone: Neutrophils/100 WBC (Bld) 59 % Normal 40-74 [facility] Work Phone: Comment on above: PATIENT WAS FASTINGP ERFORMED BY: HandelabraGamesEast Orange VA Medical CenterOkyadk5250 [facility] [id number] Information: [id number] Neutrophils/100 WBC Auto (Bld) 59 % Normal 40-74 [facility] Work Phone: Platelets (Bld) [#/Vol] 294 {x10E3/uL} Normal 155-379 [facility] Work Phone: Comment on above: PATIENT WAS FASTINGP ERFORMED BY: [facility]6370 [facility] [id number] Information: [id number] Platelets (Bld) [#/Vol] 294 10*3/uL Normal 155-379 [facility]; [facility] Work Phone: Platelets Auto #/vol (Bld) 294 {x10E3/uL} Normal 155-379 [facility] Work Phone: RBC (Bld) [#/Vol] 5.42 {x10E6/uL} Normal 4.14-5.80 [facility] Internal Medicine Work Phone: Comment on above: PATIENT WAS FASTINGP ERFORMED BY: [facility]6370 [facility] [id number] Information: [id number] RBC (Bld) [#/Vol] 5.42 10*6/uL Normal 4.14-5.80 [facility] Internal Medicine; [facility] Work Phone: RBC Auto #/vol (Bld) 5.42 {x10E6/uL} Normal 4.14-5.80 [facility] Work Phone: WBC (Bld) [#/Vol] 7.2 {x10E3/uL} Normal 3.4-10.8 [facility] Internal Medicine Work Phone: Comment on above: PATIENT WAS FASTINGP ERFORMED BY: [facility]6370 [facility] [id number] Information: [id number] WBC (Bld) [#/Vol] 7.2 10*3/uL Normal 3.4-10.8 [facility] Internal Medicine; [facility] Work Phone: WBC Auto #/vol (Bld) 7.2 {x10E3/uL} Normal 3.4-10.8 [facility] Work Phone: LIPID PANEL ([id number])Ordered B y: Sampler Tester on 05-22-2013 Cholesterol in HDL mass conc 50 mg/dL Normal [facility] Work Phone: Comment on above: According to ATP-III Guidelines, HDL-C >59 mg/dL is considered anegative risk factor for CHD. PATIENT WAS FASTINGP ERFORMED BY: CB [facility] Ancytv4444 [address] RoadDublin [place] [id number] Cholesterol in LDL mass conc 137 mg/dL Abnormal 0-99 [facility] Work Phone: Comment on above: PATIENT WAS FASTINGP ERFORMED BY: CB [facility] Fjmgxv6931 [address] RoadDublin [place] [id number] Cholesterol in LDL/Cholesterol in HDL mass ratio 2.7 {ratio_units} Normal 0.0-3.6 [facility] Work Phone: Comment on above: PATIENT WAS FASTINGP ERFORMED BY: CB [facility] Ptgsbd9969 [address] RoadDublin [place] [id number] Cholesterol in VLDL mass conc 21 mg/dL Normal 5-40 [facility] Work Phone: Comment on above: PATIENT WAS FASTINGP ERFORMED BY: CB [facility] Sekptk9219 [address] RoadDublin [place] [id number] Cholesterol mass conc 208 mg/dL Abnormal 100-199 [facility] prehensive Internal Medicine Work Phone: Comment on above: PATIENT WAS FASTINGP ERFORMED BY: CB [facility] Xwaieh3816 [address] RoadDublin [place] [id number] Triglyceride mass conc 103 mg/dL Normal 0-149 [facility] Work Phone: Comment on above: PATIENT WAS FASTINGP ERFORMED BY: CB [facility] Dheevf6412 [address] RoadDublin [place] [id number] METABOLIC PANEL, COMPREHENSI VE ([id number])Ordered By: Sampler Tester on 05-22-2013 Albumin mass conc 4.6 g/dL Normal 3.5-5.5 Compreh ensive Internal Medicine Work Phone: Comment on above: PATIENT WAS FASTINGP ERFORMED BY: CB [facility] Keyatp9648 [address] RoadDublin [place] [id number] Albumin/Globulin mass ratio 1.6 {ratio} Normal 1.1-2.5 [facility] Work Phone: Comment on above: PATIENT WAS FASTINGP ERFORMED BY: [employer]70 McgheeDezideMission Family Health Center [id number] ALP [Catalytic activity/Vol] 65 U/L Normal 44-102 [facility]; [facility] Work Phone: ALP enzyme act/vol 65 [iU]/L Normal 44-102 [facility] Internal Medicine Work Phone: Comment on above: Effective May 27, 2013 the reference interval for Alkaline Phosphatase, S will be changing to: Age Male Female 0 - 1 day 45 - 111 45 - 111 2 - 5 days 46 - 119 46 - 119 6 - 10 days 48 - 229 48 - 229 11 - 30 days 59 - 414 59 - 414 1 - 6 months 91 - 445 91 - 445 7 - 12 months 124 - 341 124 - 341 1 - 3 years 130 - 317 130 - 317 4 - 6 years 133 - 309 133 - 309 7 - 12 years 134 - 349 134 - 349 13 years 143 - 396 68 - 209 14 years 107 - 340 62 - 149 15 years 84 - 254 54 - 121 16 years 71 - 186 49 - 108 17 years 61 - 146 45 - 101 18 years 56 - 127 43 - 101 >18 years 39 - 117 39 - 117 PATIENT WAS FASTINGP ERFORMED BY: [employer]6370 [address] AI ExchangeMission Family Health Center [id number] ALT [Catalytic activity/Vol] 28 U/L Normal 0-44 [facility]; [facility] Work Phone: ALT enzyme act/vol 28 [iU]/L Normal 0-44 [facility] Internal Medicine Work Phone: Comment on above: PATIENT WAS FASTINGP ERFORMED BY: [employer]70 TransceptaMission Family Health Center [id number] AST [Catalytic activity/Vol] 16 U/L Normal 0-40 [facility]; [facility] Work Phone: AST enzyme act/vol 16 [iU]/L Normal 0-40 [facility] Internal Medicine Work Phone: Comment on above: PATIENT WAS FASTINGP ERFORMED BY: ALO [facility] Xtluoe9217 [address] RoadDublin [place] [id number] Bilirubin mass conc 0.5 mg/dL Normal 0.0-1.2 Compr ensive Internal Medicine Work Phone: Comment on above: PATIENT WAS FASTINGP ERFORMED BY: CB [facility] Peiwwq3112 [address] RoadDublin [place] [id number] Calcium mass conc 9.7 mg/dL Normal 8.7-10.2 Compreh ensive Internal Medicine Work Phone: Comment on above: PATIENT WAS FASTINGP ERFORMED BY: CB [facility] Jolxxu9502 [address] RoadDublin [place] [id number] Chloride molar conc 101 mmol/L Normal 97-108 Compr [facility] Internal Medicine Work Phone: Comment on above: PATIENT WAS FASTINGP ERFORMED BY: ALO [facility] Rbrtiv5610 [address]Dublin [place] [id number] CO2 molar conc 23 mmol/L Normal 19-28 Comprehens krystal Internal Medicine Work Phone: Comment on above: PATIENT WAS FASTINGP ERFORMED BY: CB [facility] Locrrk6933 [address]Dublin [place] [id number] Creatinine mass conc 0.90 mg/dL Normal 0.76-1.27 Comp [email or web address] Internal Medicine Work Phone: Comment on above: PATIENT WAS FASTINGP ERFORMED BY: CB [facility] Gzlaag6257 Mcg[address] RoadWakemed Cary Hospitalin [place] [id number] GFR/1.73 sq M predicted among blacks CKD-EPI vol rate/area (S/P/Bld) 132 mL/min/1.73 Normal Comprehensiv e Internal Medicine Work Phone: Comment on above: PATIENT WAS FASTINGP ERFORMED BY: CB [facility] Tsywry9262 [address]Dublin [place] [id number] GFR/1.73 sq M predicted among non-blacks CKD-EPI vol rate/area (S/P/Bld) 114 mL/min/1.73 Normal [facility] Work Phone: Comment on above: PATIENT WAS FASTINGP ERFORMED BY: CB [facility] Gzvghg8600 [address]Dublin [place] [id number] Globulin (S) [Mass/Vol] 2.9 g/dL Normal 1.5-4.5 [facility] Work Phone: Comment on above: PATIENT WAS FASTINGP ERFORMED BY: CB [facility] Ptwtla0778 [address]Dublin [place] [id number] Globulin Calculated mass conc (S) 2.9 g/dL Normal 1.5-4.5 [facility] Work Phone: Glucose mass conc 93 mg/dL Normal 65-99 Compreh ensive Internal Medicine Work Phone: Comment on above: PATIENT WAS FASTINGP ERFORMED BY: ALO [facility] Nrtxfy8715 [address]blin [place] [id number] Potassium molar conc 4.9 mmol/L Normal 3.5-5.2 Comp rehensive Internal Medicine Work Phone: Comment on above: PATIENT WAS FASTINGP ERFORMED BY: [facility] Ctwxfz0895 [address] Roadblin [place] [id number] Protein mass conc 7.5 g/dL Normal 6.0-8.5 Compreh ensive Internal Medicine Work Phone: Comment on above: PATIENT WAS FASTINGP ERFORMED BY: [facility] Scflox8881 [address] RoadDublin [place] [id number] Sodium molar conc 136 mmol/L Normal 134-144 Compreh ensive Internal Medicine Work Phone: Comment on above: PATIENT WAS FASTINGP ERFORMED BY: CB [facility] Dwltnc9058 [address]Dublin [place] [id number] Urea nitrogen mass conc 15 mg/dL Normal 6-20 [facility] Work Phone: Comment on above: PATIENT WAS FASTINGP ERFORMED BY: CB [facility] Mlodfi2538 [address] RoadDublin [place] [id number] Urea nitrogen/Creatinine mass ratio 17 mg/mg Normal 8-19 [facility] Work Phone: Comment on above: PATIENT WAS FASTINGP ERFORMED BY: ALO [facility] Youzay[address] [facility] Hospitalblin [place] [id number] Microscopic ExaminationOrder ed By: Sampler Tester on 05-22-2013 Bacteria LM.HPF #/area (Urine sed) None seen Normal [facility] Work Phone: Comment on above: PATIENT WAS FASTINGP ERFORMED BY: ALO [facility] Mgdnfa[address] [facility]in [place] [id number] Epithelial cells LM.HPF #/area (Urine sed) 0-10 Normal 0 - 10 [facility] Work Phone: Comment on above: PATIENT WAS FASTINGP ERFORMED BY: ALO [facility] Vwdnqx[address] [facility]in [place] [id number] Mucus LM Ql (Urine sed) Present Normal [facility] Work Phone: Mucus Ql (Urine sed) Present Normal Comp rehensive Internal Medicine Work Phone: Comment on above: PATIENT WAS FASTINGP ERFORMED BY: ALO [facility] Rohrsn[address] [facility]in [place] [id number] RBC LM.HPF #/area (Urine sed) 0-3 Normal 0 - 3 [facility] Work Phone: Comment on above: PATIENT WAS FASTINGP ERFORMED BY: ALO [facility] Nmwled[address] [facility]in [place] [id number] WBC LM.HPF #/area (Urine sed) 0-5 Normal 0 - 5 [facility] Work Phone: Comment on above: PATIENT WAS FASTINGP ERFORMED BY: [facility] Swqoxh[address] [facility]in [place] [id number] URINALYSIS, W/ MICRO ([id number]) Ordered By: Sampler Tester on 05-22-2013 Appearance Nom (U) Clear Normal Compre hensive Internal Medicine Work Phone: Comment on above: PATIENT WAS FASTINGP ERFORMED BY: [facility] Wgjxqe9908 [address] RoadDublin [place] [id number] Bilirubin Ql (U) Negative Normal Comprehe nsive Internal Medicine Work Phone: Comment on above: PATIENT WAS FASTINGP ERFORMED BY: ALO LabChante MuseFzgqpt4339 [address] RoadDublin [place] [id number] Bilirubin Ql (U) Negative Normal Comprehe nsive Internal Medicine; [facility] Work Phone: Color Nom (U) Yellow Normal Comprehensi ve Internal Medicine Work Phone: Comment on above: PATIENT WAS FASTINGP ERFORMED BY: ALO LabChante MuseHpxknc0986 [address] RoadDublin [place] [id number] Glucose Ql (U) Negative Normal Comprehens krystal Internal Medicine Work Phone: Comment on above: PATIENT WAS FASTINGP ERFORMED BY: ALO LabC[facility] Gyigtr8743 [address] RoadDublin [place] [id number] Glucose Ql (U) Negative Normal Comprehens krystal Internal Medicine; [facility] Work Phone: Hemoglobin Ql (U) Negative Normal Compreh ensive Internal Medicine Work Phone: Comment on above: PATIENT WAS FASTINGP ERFORMED BY: ALO BrittonCarondelet Health Ckahiv2440 Mcghee RoadWakemed Cary Hospitalin [place] [id number] Hemoglobin Ql (U) Negative Normal Compreh ensive Internal Medicine; [facility] Work Phone: Hemoglobin Test strip Ql (U) Negative Normal [facility] Work Phone: Ketones Ql (U) Negative Normal Comprehens [facility] Work Phone: Comment on above: PATIENT WAS FASTINGP ERFORMED BY: ALO BrittonCarondelet Health Hrqxil6475 Mcghee RoadWakemed Cary Hospitalin [place] [id number] Ketones Ql (U) Negative Normal [facility]; [facility] Work Phone: Leukocyte esterase Test strip Ql (U) Negative Normal [facility] Work Phone: Comment on above: PATIENT WAS FASTINGP ERFORMED BY: ALO LabTyler Jppfpp5288 Mc[address] RoadDublin [place] [id number] Leukocyte esterase Test strip Ql (U) Negative Normal [facility]; [facility] Work Phone: Microscopic observation LM Nom (Urine sed) See below: Normal [facility] Work Phone: Comment on above: PATIENT WAS FASTINGP ERFORMED BY: ALO Brennan6370 [address] RoadDublin [place] [id number] Microscopic observation LM Nom (Urine sed) MICRON Normal [facility] Work Phone: Comment on above: Microscopic follows if indicated. PATIENT WAS FASTINGP ERFORMED BY: ALO LabChante MuseGnvhfx5366 Mcg[address] RoadDublin [place] [id number] Nitrite Ql (U) Negative Normal Comprehens [facility] Work Phone: Comment on above: PATIENT WAS FASTINGP ERFORMED BY: ALO Muselin6370 [address] RoadDublin [place] [id number] Nitrite Ql (U) Negative Normal Comprehens [facility]; [facility] Work Phone: Nitrite Test strip Ql (U) Negative Normal [facility] Work Phone: pH (U) 6.0 [pH] Normal 5.0-7.5 [facility] Work Phone: Comment on above: PATIENT WAS FASTINGP ERFORMED BY: ALO Muselin[address] AI ExchangeWakemed Cary Hospitalin [place] [id number] pH Test strip (U) 6.0 [pH] Normal 5.0-7.5 Compreh ensive [facility] Medicine Work Phone: Protein Ql (U) Negative Normal Comprehens [facility] Work Phone: Comment on above: PATIENT WAS FASTINGP ERFORMED BY: ALO Muselin6370 [address] RoadWakemed Cary Hospitalin [place] [id number] Protein Ql (U) Negative Normal Comprehens [facility]; [facility] Work Phone: Protein Test strip Ql (U) Negative Normal [facility] Work Phone: Specific gravity Relative Density (U) 1.022 1 Normal 1.005-1.03 0 [facility] Work Phone: Comment on above: PATIENT WAS FASTINGP ERFORMED BY: ALO [facility] Udlddv7037 Mcghee Roadblin [place] [id number] Urobilinogen (U) [Mass/Vol] 0.2 mg/dL Normal 0.0-1.9 [facility]; [facility] Work Phone: Urobilinogen Test strip mass conc (U) 0.2 mg/dL Normal 0.0-1.9 Comprehensiv e Internal Medicine Work Phone: Comment on above: PATIENT WAS FASTINGP ERFORMED BY: LabCoEast Orange VA Medical CenterSekcgq3317 [facility] [id number] Urinalysis, Office ([id number])Or dered By: Renetta Goddard on 04-26-2013 Bilirubin Ql (U) Negative Normal Comprehe nsive Internal Medicine Work Phone: Bilirubin Ql (U) Negative Normal Comprehe nsive [facility] Medicine; [facility] Work Phone: Glucose Test strip (U) [Mass/Vol] Negative Normal [facility]; [facility] Work Phone: Glucose Test strip mass conc (U) Negative Normal [facility] Work Phone: Hemoglobin Ql (U) Hemolyzed Small Normal Co mprehensive [facility] Work Phone: Hemoglobin Test strip Ql (U) Hemolyzed Small Normal [facility] Work Phone: Ketones Ql (U) Negative Normal Comprehens [facility] Work Phone: Ketones Ql (U) Negative Normal Comprehens [facility]; [facility] Work Phone: Leukocyte esterase Test strip Ql (U) Negative Normal [facility] Work Phone: Leukocyte esterase Test strip Ql (U) Negative Normal [facility]; [facility] Work Phone: Nitrite Ql (U) Negative Normal Comprehens [facility] Work Phone: Nitrite Ql (U) Negative Normal [facility]prehens [facility]; [facility] Work Phone: Nitrite Test strip Ql (U) Negative Normal [facility] Work Phone: pH (U) 5.0 [pH] Normal [facility] Work Phone: Comment on above: 5.5 pH Test strip (U) 5.0 [pH] Normal Compreh ensive [facility] Medicine Work Phone: Comment on above: 5.5 Protein Ql (U) Negative Normal Comprehens [facility] Work Phone: Protein Ql (U) Negative Normal Comprehens [facility]; [facility] Work Phone: Protein Test strip Ql (U) Negative Normal [facility] Work Phone: Specific gravity Relative Density (U) 1.025 1 Normal Comprehensi ve Internal Medicine Work Phone: Comment on above: >=1.030 Urobilinogen mass/time (24H U) Normal Normal [facility] Work Phone: CBC WITH MANUAL DIFF ([id number]) Ordered By: Sampler Tester on 04-27-2012 Basophils (Bld) [#/Vol] 0.0 {x10E3/uL} Normal 0.0-0.2 [facility] Work Phone: Comment on above: PATIENT WAS FASTINGP ERFORMED BY: ALO Niupai70 [facility] [id number] Information: [id number] Basophils (Bld) [#/Vol] 0.0 10*3/uL Normal 0.0-0.2 [facility]; [facility] Work Phone: Basophils Auto #/vol (Bld) 0.0 {x10E3/uL} Normal 0.0-0.2 [facility] Work Phone: Basophils/100 WBC (Bld) 0 % Normal 0-3 [facility] Work Phone: Comment on above: PATIENT WAS FASTINGP ERFORMED BY: BazingaEast Orange VA Medical CenterOcsmpr6240 [facility] [id number] Information: [id number] Basophils/100 WBC Auto (Bld) 0 % Normal 0-3 [facility] Work Phone: Eosinophils (Bld) [#/Vol] 0.1 {x10E3/uL} Normal 0.0-0.4 [facility] Work Phone: Comment on above: PATIENT WAS FASTINGP ERFORMED BY: ALO [place] 2769670 [facility] [id number] Information: [id number] Eosinophils (Bld) [#/Vol] 0.1 10*3/uL Normal 0.0-0.4 [facility]; [facility] Work Phone: Eosinophils Auto #/vol (Bld) 0.1 {x10E3/uL} Normal 0.0-0.4 [facility] Work Phone: Eosinophils/100 WBC (Bld) 1 % Normal 0-7 [facility] Work Phone: Comment on above: PATIENT WAS FASTINGP ERFORMED BY: [place] 6222570 [facility] [id number] Information: [id number] Eosinophils/100 WBC Auto (Bld) 1 % Normal 0-7 [facility] Work Phone: Erythrocyte distribution width (RBC) [Ratio] 14.1 % Normal 12.3-15.4 [facility] Work Phone: Comment on above: PATIENT WAS FASTINGP ERFORMED BY: ALO [facility]6370 [facility] [id number] Information: [id number] Erythrocyte distribution width Auto Ratio (RBC) 14.1 % Normal 12.3-15.4 [facility] Work Phone: Hematocrit (Bld) [Volume fraction] 44.8 % Normal 37.5-51.0 [facility] Work Phone: Comment on above: PATIENT WAS FASTINGP ERFORMED BY: [facility]6370 [facility] [id number] Information: [id number] Hematocrit Auto Volume Fraction (Bld) 44.8 % Normal 37.5-51.0 [facility] Work Phone: Hemoglobin mass conc (Bld) 15.3 g/dL Normal 12.6-17.7 [facility] Work Phone: Comment on above: PATIENT WAS FASTINGP ERFORMED BY: ALO [facility]6370 [facility] [id number] Information: [id number] Immature granulocytes #/vol (Bld) 0.0 {x10E3/uL} Normal 0.0-0.1 [facility] Work Phone: Comment on above: PATIENT WAS FASTINGP ERFORMED BY: [address] [id number] Information: [id number] Immature granulocytes (Bld) [#/Vol] 0.0 10*3/uL Normal 0.0-0.1 [facility]; [facility] Work Phone: Immature granulocytes/100 WBC (Bld) 0 % Normal 0-2 [facility] Work Phone: Comment on above: PATIENT WAS FASTINGP ERFORMED BY: [facility]6370 [facility] [id number] Information: [id number] Lymphocytes (Bld) [#/Vol] 2.4 {x10E3/uL} Normal 0.7-4.5 [facility] Work Phone: Comment on above: PATIENT WAS FASTINGP ERFORMED BY: [facility]6370 [facility] [id number] Information: [id number] Lymphocytes (Bld) [#/Vol] 2.4 10*3/uL Normal 0.7-4.5 [facility]; [facility] Work Phone: Lymphocytes Auto #/vol (Bld) 2.4 {x10E3/uL} Normal 0.7-4.5 [facility] Work Phone: Lymphocytes/100 WBC (Bld) 28 % Normal 14-46 [facility] Work Phone: Comment on above: PATIENT WAS FASTINGP ERFORMED BY: [facility]6370 [facility] [id number] Information: [id number] Lymphocytes/100 WBC Auto (Bld) 28 % Normal 14-46 [facility] Work Phone: MCH (RBC) [Entitic mass] 29.2 pg Normal 26.6-33.0 [facility] Work Phone: Comment on above: PATIENT WAS FASTINGP ERFORMED BY: [place] 6222570 [facility] [id number] Information: [id number] MCH Auto Entitic mass (RBC) 29.2 pg Normal 26.6-33.0 [facility] Internal Medicine Work Phone: MCHC (RBC) [Mass/Vol] 34.2 g/dL Normal 31.5-35.7 [facility] Internal Medicine Work Phone: Comment on above: PATIENT WAS FASTINGP ERFORMED BY: [place] 6222570 [facility] [id number] Information: [id number] MCHC Auto mass conc (RBC) 34.2 g/dL Normal 31.5-35.7 [facility] Medicine Work Phone: MCV (RBC) [Entitic vol] 86 fL Normal 79-97 [facility] Work Phone: Comment on above: PATIENT WAS FASTINGP ERFORMED BY: [place] 6222570 [facility] [id number] Information: [id number] MCV Auto Entitic volume (RBC) 86 fL Normal 79-97 [facility] Work Phone: Monocytes (Bld) [#/Vol] 0.6 {x10E3/uL} Normal 0.1-1.0 [facility] Work Phone: Comment on above: PATIENT WAS FASTINGP ERFORMED BY: [place] 6222570 [facility] [id number] Information: [id number] Monocytes (Bld) [#/Vol] 0.6 10*3/uL Normal 0.1-1.0 [facility]; [facility] Work Phone: Monocytes Auto #/vol (Bld) 0.6 {x10E3/uL} Normal 0.1-1.0 [facility] Work Phone: Monocytes/100 WBC (Bld) 7 % Normal 4-13 [facility] Work Phone: Comment on above: PATIENT WAS FASTINGP ERFORMED BY: ALO Niupai[address] AI ExchangeMission Family Health Center [id number] Information: [id number] Monocytes/100 WBC Auto (Bld) 7 % Normal - [facility] Work Phone: Neutrophils (Bld) [#/Vol] 5.3 {x10E3/uL} Normal 1.8-7.8 [facility] Work Phone: Comment on above: PATIENT WAS FASTINGP ERFORMED BY: ALO HandelabraGamesdeann MuseZympnf4148 TransceptaMission [facility] Center [id number] Information: [id number] Neutrophils (Bld) [#/Vol] 5.3 10*3/uL Normal 1.8-7.8 [facility]; [facility] Work Phone: Neutrophils Auto #/vol (Bld) 5.3 {x10E3/uL} Normal 1.8-7.8 [facility] Work Phone: Neutrophils/100 WBC (Bld) 64 % Normal 40-74 [facility] Work Phone: Comment on above: PATIENT WAS FASTINGP ERFORMED BY: Bazinga Kgznpa6931 [place] AI ExchangeMission Family Health Center [id number] Information: [id number] Neutrophils/100 WBC Auto (Bld) 64 % Normal 40-74 [facility] Work Phone: Platelets (Bld) [#/Vol] 309 {x10E3/uL} Normal 140-415 [facility] Work Phone: Comment on above: PATIENT WAS FASTINGP ERFORMED BY: HandelabraGamesEast Orange VA Medical CenterEmegcs2204 [facility] [id number] Information: [id number] Platelets (Bld) [#/Vol] 309 10*3/uL Normal 140-415 [facility]; [facility] Work Phone: Platelets Auto #/vol (Bld) 309 {x10E3/uL} Normal 140-415 [facility] Work Phone: RBC (Bld) [#/Vol] 5.24 {x10E6/uL} Normal 4.14-5.80 [facility] Work Phone: Comment on above: PATIENT WAS FASTINGP ERFORMED BY: HandelabraGames Pzbnjs2299 [facility] [id number] Information: [id number] RBC (Bld) [#/Vol] 5.24 10*6/uL Normal 4.14-5.80 [facility]; [facility] Work Phone: RBC Auto #/vol (Bld) 5.24 {x10E6/uL} Normal 4.14-5.80 [facility] Medicine Work Phone: WBC (Bld) [#/Vol] 8.4 {x10E3/uL} Normal 4.0-10.5 [facility] Medicine Work Phone: Comment on above: PATIENT WAS FASTINGP ERFORMED BY: [employer] H2[facility]6370 [facility] [id number] Information: [id number] WBC (Bld) [#/Vol] 8.4 10*3/uL Normal 4.0-10.5 [facility]; [facility] Work Phone: WBC Auto #/vol (Bld) 8.4 {x10E3/uL} Normal 4.0-10.5 [facility] Work Phone: LIPID PANEL ([id number])Ordered B y: Sampler Tester on 04-27-2012 Cholesterol in HDL mass conc 55 mg/dL Normal [facility] Work Phone: Comment on above: According to ATP-III Guidelines, HDL-C >59 mg/dL is considered anegative risk factor for CHD. PATIENT WAS FASTINGP ERFORMED BY: CB [facility] Nmjsah3974 Mcghee RoadDublin [place] [id number] Cholesterol in LDL mass conc 142 mg/dL Abnormal 0-99 [facility] Work Phone: Comment on above: Please note refere nce interval change PATIENT WAS FASTINGP ERFORMED BY: CB [facility] Bjlhvm1552 [address]hee RoadDublin [place] [id number] Cholesterol in LDL/Cholesterol in HDL mass ratio 2.6 {ratio_units} Normal 0.0-3.6 [facility] Work Phone: Comment on above: PATIENT WAS FASTINGP ERFORMED BY: CB [facility] Nrkazw4807 [address] RoadDublin [place] [id number] Cholesterol in VLDL mass conc 20 mg/dL Normal 5-40 [facility] Work Phone: Comment on above: PATIENT WAS FASTINGP ERFORMED BY: CB [facility] Bjnevi8028 [address] RoadDublin [place] [id number] Cholesterol mass conc 217 mg/dL Abnormal 100-199 [facility] prehensive Internal Medicine Work Phone: Comment on above: Please note refere nce interval change PATIENT WAS FASTINGP ERFORMED BY: CB [facility] Huztoc4855 [address] RoadDublin [place] [id number] Triglyceride mass conc 101 mg/dL Normal 0-149 [facility] Work Phone: Comment on above: Please note refere nce interval change PATIENT WAS FASTINGP ERFORMED BY: CB [facility] Pxnlbg5541 [address] RoadDublin [place] [id number] METABOLIC PANEL, COMPREHENSI VE ([id number])Ordered By: Sampler Tester on 04-27-2012 Albumin mass conc 4.5 g/dL Normal 3.5-5.5 Compreh ensive Internal Medicine Work Phone: Comment on above: PATIENT WAS FASTINGP ERFORMED BY: ALO [facility] Zsokpw7737 [address] RoadDublin [place] [id number] Albumin/Globulin mass ratio 1.6 {ratio} Normal 1.1-2.5 [facility] Internal Medicine Work Phone: Comment on above: PATIENT WAS FASTINGP ERFORMED BY: ALO [facility] Lvnqqx1374 Mcghee RoadDublin [place] [id number] ALP [Catalytic activity/Vol] 67 U/L Normal 25-150 [facility] Internal Medicine; [facility] Internal Medicine Work Phone: ALP enzyme act/vol 67 [iU]/L Normal 25-150 [facility] Internal Medicine Work Phone: Comment on above: PATIENT WAS FASTINGP ERFORMED BY: ALO [facility] Fictqt8175 [address] RoadDublin [place] [id number] ALT [Catalytic activity/Vol] 31 U/L Normal 0-55 [facility] Internal Medicine; [facility] Internal Medicine Work Phone: ALT enzyme act/vol 31 [iU]/L Normal 0-55 [facility] Internal Medicine Work Phone: Comment on above: PATIENT WAS FASTINGP ERFORMED BY: ALO [facility] Jnrggi1114 [address] RoadDublin [place] [id number] AST [Catalytic activity/Vol] 19 U/L Normal 0-40 [facility] Internal Medicine; [facility] Internal Medicine Work Phone: AST enzyme act/vol 19 [iU]/L Normal 0-40 [facility] Internal Medicine Work Phone: Comment on above: PATIENT WAS FASTINGP ERFORMED BY: [facility] Gburmv5311 [address] RoadDublin [place] [id number] Bilirubin mass conc 0.6 mg/dL Normal 0.0-1.2 [facility] Internal Medicine Work Phone: Comment on above: PATIENT WAS FASTINGP ERFORMED BY: ALO [facility] Oytudd3547 [address] RoadDublin [place] [id number] Calcium mass conc 9.8 mg/dL Normal 8.7-10.2 Compreh ensive Internal Medicine Work Phone: Comment on above: PATIENT WAS FASTINGP ERFORMED BY: ALO [facility] Twmhim1071 [address] RoadDublin [place] [id number] Chloride molar conc 101 mmol/L Normal 97-108 Compr ehensive Internal Medicine Work Phone: Comment on above: PATIENT WAS FASTINGP ERFORMED BY: ALO [facility] Pztrtu4282 [address] RoadDublin [place] [id number] CO2 molar conc 20 mmol/L Normal 20-32 Comprehens [facility] Work Phone: Comment on above: PATIENT WAS FASTINGP ERFORMED BY: ALO [facility] Anzxkt2462 [address] Roadblin [place] [id number] Creatinine mass conc 0.88 mg/dL Normal 0.76-1.27 [facility] Internal Medicine Work Phone: Comment on above: PATIENT WAS FASTINGP ERFORMED BY: ALO [facility] Szwkyq[address] [facility] [id number] GFR/1.73 sq M predicted among blacks CKD-EPI vol rate/area (S/P/Bld) 134 mL/min/1.73 Normal Comprehensiv e Internal Medicine Work Phone: Comment on above: PATIENT WAS FASTINGP ERFORMED BY: ALO [facility] Fdblkm[address] [facility]in [place] [id number] GFR/1.73 sq M predicted among non-blacks CKD-EPI vol rate/area (S/P/Bld) 116 mL/min/1.73 Normal [facility] Work Phone: Comment on above: PATIENT WAS FASTINGP ERFORMED BY: CB [facility] Wuynvh[address] [facility]in [place] [id number] Globulin (S) [Mass/Vol] 2.9 g/dL Normal 1.5-4.5 [facility] Work Phone: Comment on above: PATIENT WAS FASTINGP ERFORMED BY: CB [facility] Yhsowb[address] [facility]in [place] [id number] Globulin Calculated mass conc (S) 2.9 g/dL Normal 1.5-4.5 [facility] Work Phone: Glucose mass conc 84 mg/dL Normal 65-99 Compreh ensive Internal Medicine Work Phone: Comment on above: PATIENT WAS FASTINGP ERFORMED BY: ALO [facility] Yuwocs4312 [address] RoadDublin [place] [id number] Potassium molar conc 4.4 mmol/L Normal 3.5-5.2 Comp rehensive Internal Medicine Work Phone: Comment on above: PATIENT WAS FASTINGP ERFORMED BY: CB [facility] Ldbdaf1674 [address] RoadDublin [place] [id number] Protein mass conc 7.4 g/dL Normal 6.0-8.5 Compreh ensive Internal Medicine Work Phone: Comment on above: PATIENT WAS FASTINGP ERFORMED BY: ALO [facility] Jhhdft7564 [address] RoadDublin [place] [id number] Sodium molar conc 138 mmol/L Normal 134-144 Compreh ensive Internal Medicine Work Phone: Comment on above: PATIENT WAS FASTINGP ERFORMED BY: ALO [facility] Jpymro9142 Mc[address] RoadDuin [place] [id number] Urea nitrogen mass conc 15 mg/dL Normal 6-20 [facility] Work Phone: Comment on above: PATIENT WAS FASTINGP ERFORMED BY: ALO [facility] Ntngin2470 [address] RoadDublin [place] [id number] Urea nitrogen/Creatinine mass ratio 17 mg/mg Normal 8-19 [facility] Work Phone: Comment on above: PATIENT WAS FASTINGP ERFORMED BY: ALO [facility] Zqeqlx3675 [address] RoadDublin [place] [id number] MICROALBUMINOrdered By: Syst em Research Laboratory Specialist on 04-27-2012 Albumin DL <= 20 mg/L mass conc (U) 1.9 ug/mL Normal 0.0-17.0 [facility] Work Phone: Comment on above: PATIENT WAS FASTINGP ERFORMED BY: ALO [facility] Sxgneh3904 [address] RoadDublin [place] [id number] Albumin/Creatinine mass ratio (U) 1.2 {mg/g_creat} Normal 0.0-30.0 [facility] Work Phone: Comment on above: PATIENT WAS FASTINGP ERFORMED BY: ALO [facility] Hwpahm[address] [facility] [id number] Creatinine mass conc (U) 159.5 mg/dL Normal 24.0-392.0 [facility] Work Phone: Comment on above: PATIENT WAS FASTINGP ERFORMED BY: ALO [facility] Pubwor[address] [facility] [id number] Microscopic ExaminationOrder ed By: Sampler Tester on 04-27-2012 Bacteria LM.HPF #/area (Urine sed) None seen Normal [facility] Work Phone: Comment on above: PATIENT WAS FASTINGP ERFORMED BY: ALO [facility] Ffobzp6960 [facility] [id number] Epithelial cells LM.HPF #/area (Urine sed) 0-10 Normal 0 - 10 [facility] Work Phone: Comment on above: PATIENT WAS FASTINGP ERFORMED BY: ALO [facility] Heyoss2243 [facility] [id number] Mucus LM Ql (Urine sed) Present Normal [facility] Work Phone: Mucus Ql (Urine sed) Present Normal Comp rehensive Internal Medicine Work Phone: Comment on above: PATIENT WAS FASTINGP ERFORMED BY: ALO [facility] Iukjfj8167 [facility] [id number] RBC LM.HPF #/area (Urine sed) 0-3 Normal 0 - 3 [facility] Work Phone: Comment on above: PATIENT WAS FASTINGP ERFORMED BY: ALO [facility] Pyiias[address] [facility]in [place] [id number] WBC LM.HPF #/area (Urine sed) 0-5 Normal 0 - 5 [facility] Work Phone: Comment on above: PATIENT WAS FASTINGP ERFORMED BY: ALO [facility] Ldayjv[address] [facility] [id number] URINALYSIS, W/ MICRO ([id number]) Ordered By: Sampler Tester on 04-27-2012 Appearance Nom (U) Clear Normal Compre hensive Internal Medicine Work Phone: Comment on above: PATIENT WAS FASTINGP ERFORMED BY: ALO LabChante MuseRjoydj0409 [address] RoadDublin [place] [id number] Bilirubin Ql (U) Negative Normal Comprehe nsive Internal Medicine Work Phone: Comment on above: PATIENT WAS FASTINGP ERFORMED BY: ALO LabChante MuseZqrape6399 [address] RoadDublin [place] [id number] Bilirubin Ql (U) Negative Normal Comprehe nsive Internal Medicine; [facility] Work Phone: Color Nom (U) Yellow Normal Comprehensi ve Internal Medicine Work Phone: Comment on above: PATIENT WAS FASTINGP ERFORMED BY: ALO Muselin6370 [address] RoadDuin [place] [id number] Glucose Ql (U) Negative Normal Comprehens [facility] Work Phone: Comment on above: PATIENT WAS FASTINGP ERFORMED BY: ALO LabChante MuseUlpvpi8112 [address] RoadDuin [place] [id number] Glucose Ql (U) Negative Normal Comprehens k[facility]; [facility] Work Phone: Hemoglobin Ql (U) Negative Normal Compreh ensive Internal Medicine Work Phone: Comment on above: PATIENT WAS FASTINGP ERFORMED BY: ALO LabChante MusePkvsxg0770 [address] RoadDuin [place] [id number] Hemoglobin Ql (U) Negative Normal Compreh ensive Internal Medicine; [facility] Work Phone: Hemoglobin Test strip Ql (U) Negative Normal [facility] Work Phone: Ketones Ql (U) Negative Normal Comprehens krystal [facility] Work Phone: Comment on above: PATIENT WAS FASTINGP ERFORMED BY: ALO LabCodeann MuseTjfjgb6012 [address] RoadDublin [place] [id number] Ketones Ql (U) Negative Normal Comprehens krystal [facility]; [facility] Work Phone: Leukocyte esterase Test strip Ql (U) Negative Normal [facility] Work Phone: Comment on above: PATIENT WAS FASTINGP ERFORMED BY: ALO [facility] Ladqso1577 [address] RoadDublin [place] [id number] Leukocyte esterase Test strip Ql (U) Negative Normal [facility]; Comprehensive Internal Medicine Work Phone: Microscopic observation LM Nom (Urine sed) MICRON Normal [facility] Work Phone: Comment on above: Microscopic follows if indicated. PATIENT WAS FASTINGP ERFORMED BY: ALO [facility] [id number] [address]hee [address]Dublin [place] [id number] Microscopic observation LM Nom (Urine sed) See below: Normal [facility] Work Phone: Comment on above: PATIENT WAS FASTINGP ERFORMED BY: ALO [facility] [id number]Dublin [place] [id number] Nitrite Ql (U) Negative Normal Comprehens [facility] Internal Medicine Work Phone: Comment on above: PATIENT WAS FASTINGP ERFORMED BY: ALO [facility] [id number]Dublin [place] [id number] Nitrite Ql (U) Negative Normal Comprehens [facility] Internal Medicine; [facility] Work Phone: Nitrite Test strip Ql (U) Negative Normal [facility] Work Phone: pH (U) 6.0 [pH] Normal 5.0-7.5 [facility] Work Phone: Comment on above: PATIENT WAS FASTINGP ERFORMED BY: ALO [facility] [id number]Dublin [place] [id number] pH Test strip (U) 6.0 [pH] Normal 5.0-7.5 Compreh ensive Internal Medicine Work Phone: Protein Ql (U) Negative Normal Comprehens [facility] Internal Medicine Work Phone: Comment on above: PATIENT WAS FASTINGP ERFORMED BY: ALO [facility] [id number]Dublin [place] [id number] Protein Ql (U) Negative Normal Comprehens [facility] Internal Medicine; [facility] Work Phone: Protein Test strip Ql (U) Negative Normal [facility] Work Phone: Specific gravity Relative Density (U) 1.026 1 Normal 1.005-1.03 0 [facility] Work Phone: Comment on above: PATIENT WAS FASTINGP ERFORMED BY: [employer] [id number] [facility] [id number] Urobilinogen (U) [Mass/Vol] 0.2 mg/dL Normal 0.0-1.9 [facility]; [facility] Work Phone: Urobilinogen Test strip mass conc (U) 0.2 mg/dL Normal 0.0-1.9 Comprehensiv e Internal Medicine Work Phone: Comment on above: PATIENT WAS FASTINGP ERFORMED BY: HandelabraGamesEast Orange VA Medical [id number] [facility] [id number] COMP METABOLICOrdered By: Juan stem Research Laboratory Specialist on 07-15-2011 Albumin mass conc 4.0 g/dL Normal 3.4-5.0 Compreh [facility] Internal Medicine Work Phone: Albumin/Globulin mass ratio 1.1 {RATIO} Normal 0.9-2.4 [facility] Internal Medicine Work Phone: ALP enzyme act/vol 57 U/L Normal 50-136 [facility] Internal Medicine Work Phone: ALT enzyme act/vol 39 U/L Normal 12-78 [facility] Internal Medicine Work Phone: Anion gap 3 molar conc 11 mmol/L Normal 5-15 [facility] Work Phone: Anion gap [Moles/Vol] 11 mmol/L Normal 5-15 [facility] prehensive Internal Medicine Work Phone: AST enzyme act/vol 16 U/L Normal 15-37 [facility] Internal Medicine Work Phone: Bilirubin mass conc 0.50 mg/dL Normal 0.00-1.00 [facility] Work Phone: Calcium mass conc 8.9 mg/dL Normal 8.5-10.1 Compreh ensive Internal Medicine Work Phone: Chloride molar conc 106 mmol/L Normal 98-107 Compr ehensive Internal Medicine Work Phone: CO2 molar conc 24.0 mmol/L Normal 21.0-32.0 [facility]hen [facility] Work Phone: Creatinine mass conc 0.8 mg/dL Normal 0.8-1.3 Comp rehensive Internal Medicine Work Phone: GFR/1.73 sq M predicted among blacks MDRD vol rate/area (S/P/Bld) 147 mL/min/{1.73_m2} Normal Compreh ensive Internal Medicine Work Phone: GFR/1.73 sq M.predicted MDRD (S/P/Bld) [Vol rate/Area] 121 mL/min/{1.73_m2} Normal Comprehensi ve Internal Medicine Work Phone: GFR/1.73 sq M.predicted MDRD vol rate/area 121 mL/min/{1.73_m2} Normal Comprehensi ve Internal Medicine Work Phone: Globulin (S) [Mass/Vol] 3.6 g/dL Normal 2.7-4.2 [facility] Work Phone: Globulin Calculated mass conc (S) 3.6 g/dL Normal 2.7-4.2 [facility] Work Phone: Glucose mass conc 99 mg/dL Normal 70-110 Compreh ensive Internal Medicine Work Phone: Potassium molar conc 4.3 mmol/L Normal 3.5-5.1 Comp rehensive Internal Medicine Work Phone: Protein mass conc 7.6 g/dL Normal 6.4-8.2 Compreh ensive Internal Medicine Work Phone: Sodium molar conc 141 mmol/L Normal 136-145 Compreh ensive Internal Medicine Work Phone: Urea nitrogen mass conc 12 mg/dL Normal 7-18 [facility] Work Phone: Urea nitrogen/Creatinine mass ratio 15.0 {RATIO} Normal 10-20 [facility] Work Phone: LIPIDOrdered By: System Alexsandra hannah on 07-15-2011 Cholesterol in HDL mass conc 44 mg/dL Normal [facility] Work Phone: Comment on above: Reference Range HDL <40 mg/dL Low HDL Cholesterol HDL >or= 60 mg/dL High HDL Cholesterol Cholesterol in LDL mass conc 126 mg/dL Normal 0-130 [facility] Work Phone: Cholesterol in VLDL mass conc 22 mg/dL Normal 5-40 [facility] Work Phone: Cholesterol mass conc 192 mg/dL Normal Com prehensive Internal Medicine Work Phone: Comment on above: <200 mg/dL Desirable 200-240 mg/dL Borderline >240 mg/dL High Risk Triglyceride mass conc 111 mg/dL Normal [facility] Work Phone: Comment on above: Serum Triglycerides Reference Interval Normal <150 mg/dL Borderline high 150 - 199 mg/dL High 200 - 499 mg/dL Very High > or = 500 mg/dL KNEE,4 OR MORE VIEWSOrdered By: Sampler Tester on 06-14-2011 KNEE,4 OR MORE VIEWS See Note Normal Comp rehensive Internal Medicine Work Phone: Comment on above: PROCEDURES: X-RAY - RIGHT KNEE REASON FOR EXAM: Male, 30 years old. Knee pain TECHNIQUE: Four (including AP/lateral weight-bearing) views of [facility]. COMPARISON: None. FINDINGS:Normal medial femorotibial compartment. Normal lateral femorotibialcompartment. Normal patellofemoral articulation. Normal visualized distal femur. Normal visualized proximal tibia andfibula. Normal proximal tibiofibular articulation. There is subtle soft tissue stranding anterior to the patellar tendonseenon the lateral view. IMPRESSION:1. No acute fracture or malalignment. No joint effusion. 2. Prepatellar subtle soft tissue stranding could represent patellartendinitis. Correlate clinically. Dictated on 06/14/11 1607 by JAZMIN JHAVERI MD BTranscribed on 06/15/11 1045 by ITS IMPORTSign by JAZMIN JHAVERI MD on 06/15/11 1046 Sign by: JAZMIN JHAVERI MD COMP METABOLICOrdered By: Juan stem Research Laboratory Specialist on 12-01-2010 Albumin mass conc 4.0 g/dL Normal 3.4-5.0 Compreh ensive Internal Medicine Work Phone: Albumin/Globulin mass ratio 1.1 {RATIO} Normal 0.9-2.4 [facility] Work Phone: ALP enzyme act/vol 65 U/L Normal 50-136 [facility] Work Phone: ALT enzyme act/vol 36 U/L Normal 12-78 [facility] Internal Medicine Work Phone: Anion gap 3 molar conc 7 mmol/L Normal 5-15 [facility] Work Phone: Anion gap [Moles/Vol] 7 mmol/L Normal 5-15 [facility] prehensive Internal Medicine Work Phone: AST enzyme act/vol 12 U/L Abnormal 15-37 Compre [facility] Internal Medicine Work Phone: Bilirubin mass conc 0.40 mg/dL Normal 0.00-1.00 Compr ensive Internal Medicine Work Phone: Calcium mass conc 9.5 mg/dL Normal 8.5-10.1 Compreh ensive Internal Medicine Work Phone: Chloride molar conc 104 mmol/L Normal 98-107 Compr ensive Internal Medicine Work Phone: CO2 molar conc 27.0 mmol/L Normal 21.0-32.0 [facility] Work Phone: Creatinine mass conc 0.9 mg/dL Normal 0.8-1.3 [facility] Work Phone: GFR/1.73 sq M predicted among blacks MDRD vol rate/area (S/P/Bld) 130 mL/min/{1.73_m2} Normal Compreh ensive Internal Medicine Work Phone: GFR/1.73 sq M.predicted MDRD (S/P/Bld) [Vol rate/Area] 107 mL/min/{1.73_m2} Normal Comprehensi ve Internal Medicine Work Phone: GFR/1.73 sq M.predicted MDRD vol rate/area 107 mL/min/{1.73_m2} Normal Comprehensi ve Internal Medicine Work Phone: Globulin (S) [Mass/Vol] 3.6 g/dL Normal 2.7-4.2 [facility] Work Phone: Globulin Calculated mass conc (S) 3.6 g/dL Normal 2.7-4.2 [facility] Work Phone: Glucose mass conc 84 mg/dL Normal 70-110 Compreh ensive Internal Medicine Work Phone: Potassium molar conc 4.8 mmol/L Normal 3.5-5.1 Comp rehensive Internal Medicine Work Phone: Protein mass conc 7.6 g/dL Normal 6.4-8.2 Compreh ensive Internal Medicine Work Phone: Sodium molar conc 138 mmol/L Normal 136-145 Compreh ensive Internal Medicine Work Phone: Urea nitrogen mass conc 16 mg/dL Normal 7-18 [facility] Work Phone: Urea nitrogen/Creatinine mass ratio 17.8 {RATIO} Normal 10-20 [facility] Work Phone: LIPIDOrdered By: System Alexsandra hannah on 12-01-2010 Cholesterol in HDL mass conc 47 mg/dL Normal [facility] Work Phone: Comment on above: Reference Range HDL <40 mg/dL Low HDL Cholesterol HDL >or= 60 mg/dL High HDL Cholesterol Cholesterol in LDL mass conc 138 mg/dL Abnormal 0-130 [facility] Work Phone: Cholesterol in VLDL mass conc 17 mg/dL Normal 5-40 [facility] Work Phone: Cholesterol mass conc 202 mg/dL Abnormal Com prehensive Internal Medicine Work Phone: Comment on above: <200 mg/dL Desirable 200-240 mg/dL Borderline >240 mg/dL High Risk Triglyceride mass conc 84 mg/dL Normal [facility] Work Phone: Comment on above: Serum Triglycerides Reference Interval Normal <150 mg/dL Borderline high 150 - 199 mg/dL High 200 - 499 mg/dL Very High > or = 500 mg/dL CBCD,SMEAR DIFFOrdered By: Silas olivares Research Laboratory Specialist on 06-16-2010 Band form neutrophils/100 WBC (Bld) 1 % Normal 0-5 [facility] Work Phone: Band form neutrophils/100 WBC Manual cnt (Bld) 1 % Normal 0-5 [facility] Work Phone: Eosinophils/100 WBC (Bld) 1 % Normal 0-5 [facility] Work Phone: Eosinophils/100 WBC Auto (Bld) 1 % Normal 0-5 [facility] Internal Medicine Work Phone: Erythrocyte distribution width (RBC) [Ratio] 13.4 % Normal 11.6-14.6 [facility] Internal Medicine Work Phone: Erythrocyte distribution width Auto Ratio (RBC) 13.4 % Normal 11.6-14.6 [facility] Internal Medicine Work Phone: Hematocrit (Bld) [Volume fraction] 43.4 % Normal 40-54 [facility] Internal Medicine Work Phone: Hematocrit Auto Volume Fraction (Bld) 43.4 % Normal 40-54 Comprehens [facility] Internal Medicine Work Phone: Hemoglobin mass conc (Bld) 15.1 g/dL Normal 14.0-18.0 [facility] Internal Medicine Work Phone: Lymphocytes/100 WBC (Bld) 22 % Normal 19-41 [facility] Internal Medicine Work Phone: Lymphocytes/100 WBC Auto (Bld) 22 % Normal 19-41 [facility] Internal Medicine Work Phone: MCH (RBC) [Entitic mass] 30.3 pg Normal 27.0-32.0 [facility] Internal Medicine Work Phone: MCH Auto Entitic mass (RBC) 30.3 pg Normal 27.0-32.0 [facility] Internal Medicine Work Phone: MCHC (RBC) [Mass/Vol] 34.7 g/dL Normal 32-36 Com prehensive Internal Medicine Work Phone: MCHC Auto mass conc (RBC) 34.7 g/dL Normal 32-36 [facility] Work Phone: MCV (RBC) [Entitic vol] 87.2 fL Normal 80-94 [facility] Work Phone: MCV Auto Entitic volume (RBC) 87.2 fL Normal 80-94 [facility] Work Phone: Monocytes/100 WBC (Bld) 1 % Normal 0-10 [facility] Work Phone: Monocytes/100 WBC Auto (Bld) 1 % Normal 0-10 [facility] Work Phone: Neutrophils (Bld) [#/Vol] 6.2 3/uL Normal 2.0-7.7 [facility] Work Phone: Neutrophils Auto #/vol (Bld) 6.2 3/uL Normal 2.0-7.7 [facility] Work Phone: Platelets (Bld) [#/Vol] 289 10*3/uL Normal 150-450 [facility] Work Phone: Platelets (Bld) [#/Vol] SeeNote Normal [facility] Work Phone: Comment on above: Result: ADEQUATE Platelets Auto #/vol (Bld) 289 10*3/uL Normal 150-450 [facility] Work Phone: RBC (Bld) [#/Vol] 4.98 {M/mm3} Normal 4.6-6.2 Compr ehensive Internal Medicine Work Phone: RBC Auto #/vol (Bld) 4.98 {M/mm3} Normal 4.6-6.2 Co mprehensive Internal Medicine Work Phone: WBC (Bld) [#/Vol] 8.5 10*3/uL Normal 4.4-11.0 Compre [facility] Internal Medicine Work Phone: WBC Auto #/vol (Bld) 8.5 10*3/uL Normal 4.4-11.0 Com prehensive Internal Medicine Work Phone: CBCD,SMEAR DIFF SeeNote Normal [facility] Internal Medicine Work Phone: Comment on above: Result: NORM C+C Result: ADEQUATE CBCD,SMEAR DIFF 75 % Abnormal 47-70 [facility] Internal Medicine Work Phone: CBCD,SMEAR DIFF 100 1 Normal [facility]pre[facility] Internal Medicine Work Phone: CBCD,SMEAR DIFF 1 % Normal 0-5 Comprehucsf [facility] Internal Medicine Work Phone: COMP METABOLICOrdered By: Juan stem Research Laboratory Specialist on 06-16-2010 Albumin mass conc 3.9 g/dL Normal 3.4-5.0 [facility] Internal Medicine Work Phone: Albumin/Globulin mass ratio 1.1 {RATIO} Normal 0.9-2.4 [facility] Internal Medicine Work Phone: ALP enzyme act/vol 80 U/L Normal 50-136 [facility] Internal Medicine Work Phone: ALT enzyme act/vol 52 U/L Normal 12-78 [facility] Internal Medicine Work Phone: Anion gap 3 molar conc 10 mmol/L Normal 5-15 [facility] Internal Medicine Work Phone: Anion gap [Moles/Vol] 10 mmol/L Normal 5-15 [facility] Internal Medicine Work Phone: AST enzyme act/vol 9 U/L Abnormal 15-37 [facility] Internal Medicine Work Phone: Bilirubin mass conc 0.40 mg/dL Normal 0.00-1.00 [facility] Internal Medicine Work Phone: Calcium mass conc 9.1 mg/dL Normal 8.5-10.1 [facility] Internal Medicine Work Phone: Chloride molar conc 105 mmol/L Normal 98-107 [facility] Internal Medicine Work Phone: CO2 molar conc 27.0 mmol/L Normal 21.0-32.0 [facility] Internal Medicine Work Phone: Creatinine mass conc 1.0 mg/dL Normal 0.8-1.3 Comp rehensive Internal Medicine Work Phone: GFR/1.73 sq M predicted among blacks MDRD vol rate/area (S/P/Bld) 115 mL/min/{1.73_m2} Normal Compreh ensive Internal Medicine Work Phone: GFR/1.73 sq M.predicted MDRD (S/P/Bld) [Vol rate/Area] 95 mL/min/{1.73_m2} Normal Comprehensiv e Internal Medicine Work Phone: GFR/1.73 sq M.predicted MDRD vol rate/area 95 mL/min/{1.73_m2} Normal Comprehensiv e Internal Medicine Work Phone: Globulin (S) [Mass/Vol] 3.7 g/dL Normal 2.7-4.2 [facility] Work Phone: Globulin Calculated mass conc (S) 3.7 g/dL Normal 2.7-4.2 [facility] Work Phone: Glucose mass conc 87 mg/dL Normal 70-110 Compreh ensive Internal Medicine Work Phone: Potassium molar conc 4.9 mmol/L Normal 3.5-5.1 Comp rehensive Internal Medicine Work Phone: Protein mass conc 7.6 g/dL Normal 6.4-8.2 Compreh ensive Internal Medicine Work Phone: Sodium molar conc 142 mmol/L Normal 136-145 Compreh ensive Internal Medicine Work Phone: Urea nitrogen mass conc 9 mg/dL Normal 7-18 [facility] Work Phone: Urea nitrogen/Creatinine mass ratio 9.0 {RATIO} Abnormal 10-20 [facility] Work Phone: LIPIDOrdered By: Sebas young on 06-16-2010 Cholesterol in HDL mass conc 40 mg/dL Normal [facility] Work Phone: Comment on above: Reference Range HDL <40 mg/dL Low HDL Cholesterol HDL >or= 60 mg/dL High HDL Cholesterol Cholesterol in LDL mass conc 120 mg/dL Normal 0-130 [facility] Work Phone: Cholesterol in VLDL mass conc 14 mg/dL Normal 5-40 [facility] Work Phone: Cholesterol mass conc 174 mg/dL Normal Com prehensive Internal Medicine Work Phone: Comment on above: <200 mg/dL Desirable 200-240 mg/dL Borderline >240 mg/dL High Risk Triglyceride mass conc 72 mg/dL Normal [facility] Work Phone: Comment on above: Serum Triglycerides Reference Interval Normal <150 mg/dL Borderline high 150 - 199 mg/dL High 200 - 499 mg/dL Very High > or = 500 mg/dL COMP METABOLICOrdered By: Juan stem Research Laboratory Specialist on 02-05-2010 Albumin mass conc 4.0 g/dL Normal 3.4-5.0 Compreh [facility] Internal Medicine Work Phone: Albumin/Globulin mass ratio 1.0 {RATIO} Normal 0.9-2.4 [facility] Work Phone: ALP enzyme act/vol 77 U/L Normal 50-136 [facility] Internal Medicine Work Phone: ALT enzyme act/vol 42 U/L Normal 12-78 [facility] Internal Medicine Work Phone: Anion gap 3 molar conc 11 mmol/L Normal 5-15 [facility] Internal Medicine Work Phone: Anion gap [Moles/Vol] 11 mmol/L Normal 5-15 Com prehensive Internal Medicine Work Phone: AST enzyme act/vol 13 U/L Abnormal 15-37 [facility] Internal Medicine Work Phone: Bilirubin mass conc 0.60 mg/dL Normal 0.00-1.00 Compr ensive Internal Medicine Work Phone: Calcium mass conc 9.2 mg/dL Normal 8.5-10.1 Compreh [facility] Internal Medicine Work Phone: Chloride molar conc 101 mmol/L Normal 98-107 Compr [facility] Internal Medicine Work Phone: CO2 molar conc 24.0 mmol/L Normal 21.0-32.0 Comprehucsf [facility] Internal Medicine Work Phone: Creatinine mass conc 0.9 mg/dL Normal 0.8-1.3 Comp rehensive Internal Medicine Work Phone: GFR/1.73 sq M predicted among blacks MDRD vol rate/area (S/P/Bld) 131 mL/min/{1.73_m2} Normal Compreh ensive Internal Medicine Work Phone: GFR/1.73 sq M.predicted MDRD (S/P/Bld) [Vol rate/Area] 108 mL/min/{1.73_m2} Normal Comprehensi ve Internal Medicine Work Phone: GFR/1.73 sq M.predicted MDRD vol rate/area 108 mL/min/{1.73_m2} Normal Comprehensi ve Internal Medicine Work Phone: Globulin (S) [Mass/Vol] 4.0 g/dL Normal 2.7-4.2 [facility] Work Phone: Globulin Calculated mass conc (S) 4.0 g/dL Normal 2.7-4.2 [facility] Work Phone: Glucose mass conc 88 mg/dL Normal 70-110 Compreh ensive Internal Medicine Work Phone: Potassium molar conc 4.6 mmol/L Normal 3.5-5.1 Comp rehensive Internal Medicine Work Phone: Protein mass conc 8.0 g/dL Normal 6.4-8.2 Compreh ensive Internal Medicine Work Phone: Sodium molar conc 136 mmol/L Normal 136-145 Compreh ensive Internal Medicine Work Phone: Urea nitrogen mass conc 16 mg/dL Normal 7-18 [facility] Work Phone: Urea nitrogen/Creatinine mass ratio 17.8 {RATIO} Normal 10-20 [facility] Work Phone: LIPIDOrdered By: Sebas young on 02-05-2010 Cholesterol in HDL mass conc 46 mg/dL Normal [facility] Work Phone: Comment on above: Reference RangeHDL < 40 mg/dL Low HDL CholesterolHDL >or= 60 mg/dL High HDL Cholesterol Cholesterol in LDL mass conc 125 mg/dL Normal 0-130 [facility] Work Phone: Cholesterol in VLDL mass conc 19 mg/dL Normal 5-40 [facility] Work Phone: Cholesterol mass conc 190 mg/dL Normal Com prehensive Internal Medicine Work Phone: Comment on above: <200 mg/dL Desirable 200-240 mg/dL Borderline>240 mg/dL High Risk Triglyceride mass conc 94 mg/dL Normal [facility] Work Phone: Comment on above: Serum Triglycerides Reference IntervalNormal <150 mg/dLBorderline high 150 - 199 mg/dLHigh 200 - 499 mg/dLVery High > or = 500 mg/dL CULTURE, THROATOrdered By: Silas olivares Research Laboratory Specialist on 06-17-2009 CULTURE, THROAT See Note Normal Comprehen [facility] Internal Medicine Work Phone: Comment on above: Penicillin is the dr ug of choice for Beta Streptococcalinfections. For Penicillin allergic patients, Erythromycinmay be used.No Group A Beta Streptococcus isolated. * This is an amended result. * A prior result that was reported as final has been changed.06/19/09 1350 by RUIPreviously reported as: NORMAL KESHA AMOUNT GROWTH 1+ ORGANISM 1: GROUP G BETA STREPTOCOCCUS UPPER GI SERIES ONLYOrdered By: Sampler Tester on 03-31-2009 UPPER GI SERIES ONLY See Note Normal Comp rehensive Internal Medicine Work Phone: Comment on above: Exam Number: [id number] UPPER GI, AIR CONTRAST STUDY HISTORYGERD. The esophagus, stomach, and duodenum appear normal. No hiatal herniaor reflux is demonstrated. There is no evidence of peptic ulcerdisease or neoplasm. There is no obstruction. IMPRESSIONNormal upper GI. Reported By: TAMI CARRERA M.D. Exam Number: [id number] CLINICAL:Hypertension. RENAL ULTRASOUND COMPARISON:None. FINDINGS: Images and technologist worksheet are submitted for interpretation. The right kidney is normal in size, measuring 10.6 cm. There are no cortical masses or cysts. A prominent column of Alejandro is noted. There is no cortical atrophy. There is no hydronephrosis. There are no renal calculi. The left kidney is normal in size, measuring 10.6 cm. There are no cortical masses or cysts. A prominent column of Alejandro is noted. There is no cortical atrophy. There is no hydronephrosis. There are no renal calculi. There are no perinephric collections. There is no retroperitoneal lymphadenopathy. IMPRESSION:Normal renal ultrasound. Reported By: KEO ROSARIO M.D. CHEST, PA AND LATERALOrdered By: Sampler Tester on 03-26-2009 CHEST, PA AND LATERAL See Note Normal Com prehensive Internal Medicine Work Phone: Comment on above: Exam Number: [id number] CHEST PA AND LATERAL INDICATIONHypertension. FINDINGSChest PA and lateral was obtained and compared with film from January. The lungs are well aerated without focal opacification oreffusion. Mediastinum is normal. There is no pneumothorax. There isno free air below the diaphragm. IMPRESSIONNo radiographic evidence of cardiopulmonary disease. Reported By: MARIANO BENNETT M.D. CBCD,SMEAR DIFFOrdered By: S ystem Research Laboratory Specialist on 03-13-2009 Band form neutrophils/100 WBC (Bld) 2 % Normal 0-5 [facility] Work Phone: Band form neutrophils/100 WBC Manual cnt (Bld) 2 % Normal 0-5 [facility] Work Phone: Eosinophils/100 WBC (Bld) 1 % Normal 0-5 [facility] Work Phone: Eosinophils/100 WBC Auto (Bld) 1 % Normal 0-5 [facility] Work Phone: Erythrocyte distribution width (RBC) [Ratio] 13.3 % Normal 11.6-14.6 [facility] Work Phone: Erythrocyte distribution width Auto Ratio (RBC) 13.3 % Normal 11.6-14.6 [facility] Work Phone: Hematocrit (Bld) [Volume fraction] 45.6 % Normal 40-54 [facility] Internal Medicine Work Phone: Hematocrit Auto Volume Fraction (Bld) 45.6 % Normal 40-54 Comprehens [facility] Internal Medicine Work Phone: Hemoglobin mass conc (Bld) 15.7 g/dL Normal 14.0-18.0 [facility] Internal Medicine Work Phone: Lymphocytes/100 WBC (Bld) 29 % Normal 19-41 [facility] Internal Medicine Work Phone: Lymphocytes/100 WBC Auto (Bld) 29 % Normal 19-41 [facility] Internal Medicine Work Phone: MCH (RBC) [Entitic mass] 29.4 pg Normal 27.0-32.0 [facility] Internal Medicine Work Phone: MCH Auto Entitic mass (RBC) 29.4 pg Normal 27.0-32.0 [facility] Internal Medicine Work Phone: MCHC (RBC) [Mass/Vol] 34.4 g/dL Normal 32-36 [facility] prehensive Internal Medicine Work Phone: MCHC Auto mass conc (RBC) 34.4 g/dL Normal 32-36 [facility] Internal Medicine Work Phone: MCV (RBC) [Entitic vol] 85.3 fL Normal 80-94 [facility] Internal Medicine Work Phone: MCV Auto Entitic volume (RBC) 85.3 fL Normal 80-94 [facility] Internal Medicine Work Phone: Monocytes/100 WBC (Bld) 7 % Normal 0-10 [facility] Work Phone: Monocytes/100 WBC Auto (Bld) 7 % Normal 0-10 [facility] Internal Medicine Work Phone: Platelets (Bld) [#/Vol] SeeNote Normal [facility] Internal Medicine Work Phone: Comment on above: Result: ADEQUATE Platelets (Bld) [#/Vol] 268 10*3/uL Normal 150-450 [facility] Internal Medicine Work Phone: Platelets Auto #/vol (Bld) 268 10*3/uL Normal 150-450 [facility] Internal Medicine Work Phone: RBC (Bld) [#/Vol] 5.34 {M/mm3} Normal 4.6-6.2 [facility] Internal Medicine Work Phone: RBC Auto #/vol (Bld) 5.34 {M/mm3} Normal 4.6-6.2 [facility] Internal Medicine Work Phone: WBC (Bld) [#/Vol] 7.2 10*3/uL Normal 4.4-11.0 [facility] Internal Medicine Work Phone: WBC Auto #/vol (Bld) 7.2 10*3/uL Normal 4.4-11.0 [facility] Internal Medicine Work Phone: CBCD,SMEAR DIFF 61 % Normal 47-70 [facility] Internal Medicine Work Phone: CBCD,SMEAR DIFF SeeNote Normal [facility] Internal [facility] Work Phone: Comment on above: Result: ADEQUATE Result: NORM C+C CBCD,SMEAR DIFF 100 1 Normal [facility] Internal Medicine Work Phone: CBCD,SMEAR DIFF 2 % Normal 0-5 [facility] Internal Medicine Work Phone: COMP METABOLICOrdered By: Juan stem Research Laboratory Specialist on 03-13-2009 Albumin mass conc 3.8 g/dL Normal 3.4-5.0 [facility] Internal Medicine Work Phone: Albumin/Globulin mass ratio 1.0 {RATIO} Normal 0.9-2.4 [facility] Internal Medicine Work Phone: ALP enzyme act/vol 97 U/L Normal 50-136 [facility] Internal Medicine Work Phone: ALT enzyme act/vol 48 U/L Normal 30-65 [facility] Internal Medicine Work Phone: Anion gap 3 molar conc 8 mmol/L Normal 5-15 [facility] Internal Medicine Work Phone: Anion gap [Moles/Vol] 8 mmol/L Normal 5-15 [facility] Work Phone: AST enzyme act/vol 18 U/L Normal 15-37 Compre hensive Internal Medicine Work Phone: Bilirubin mass conc 0.30 mg/dL Normal 0.00-1.00 Compr ehensive Internal Medicine Work Phone: Calcium mass conc 9.2 mg/dL Normal 8.5-10.1 Compreh ensive Internal Medicine Work Phone: Chloride molar conc 106 mmol/L Normal 98-107 Compr ensive Internal Medicine Work Phone: CO2 molar conc 27.0 mmol/L Normal 21.0-32.0 [facility] Work Phone: Creatinine mass conc 0.9 mg/dL Normal 0.8-1.3 [facility] Work Phone: GFR/1.73 sq M predicted among blacks MDRD vol rate/area (S/P/Bld) 131 mL/min/{1.73_m2} Normal Compreh ensive Internal Medicine Work Phone: GFR/1.73 sq M.predicted MDRD (S/P/Bld) [Vol rate/Area] 108 mL/min/{1.73_m2} Normal Comprehensi ve Internal Medicine Work Phone: GFR/1.73 sq M.predicted MDRD vol rate/area 108 mL/min/{1.73_m2} Normal Comprehensi ve Internal Medicine Work Phone: Globulin (S) [Mass/Vol] 3.7 g/dL Normal 2.7-4.2 [facility] Work Phone: Globulin Calculated mass conc (S) 3.7 g/dL Normal 2.7-4.2 [facility] Work Phone: Glucose mass conc 78 mg/dL Normal 70-110 Compreh ensive Internal Medicine Work Phone: Potassium molar conc 4.9 mmol/L Normal 3.5-5.1 [facility] Work Phone: Protein mass conc 7.5 g/dL Normal 6.4-8.2 [facility] Work Phone: Sodium molar conc 141 mmol/L Normal 136-145 Compreh ensive Internal Medicine Work Phone: Urea nitrogen mass conc 13 mg/dL Normal 7-18 [facility] Work Phone: Urea nitrogen/Creatinine mass ratio 14.4 {RATIO} Normal 10-20 [facility] Work Phone: D BILIOrdered By: System Man ager on 03-13-2009 Bilirubin.direct mass conc 0.11 mg/dL Normal 0.00-0.30 [facility] Work Phone: LIPIDOrdered By: System Alexsandra hannah on 03-13-2009 Cholesterol in HDL mass conc 45 mg/dL Normal [facility] Work Phone: Comment on above: Reference Range HDL <40 mg/dL Low HDL Cholesterol HDL >or= 60 mg/dL High HDL Cholesterol Cholesterol in LDL mass conc 115 mg/dL Normal 0-130 [facility] Work Phone: Cholesterol in VLDL mass conc 15 mg/dL Normal 5-40 [facility] Work Phone: Cholesterol mass conc 175 mg/dL Normal Com prehensive Internal Medicine Work Phone: Comment on above: <200 mg/dL Desirable 200-240 mg/dL Borderline >240 mg/dL High Risk Triglyceride mass conc 77 mg/dL Normal [facility] Work Phone: Comment on above: Serum Triglycerides Reference Interval Normal <150 mg/dL Borderline high 150 - 199 mg/dL High 200 - 499 mg/dL Very High > or = 500 mg/dL TSHOrdered By: System Manage r on 03-13-2009 Thyrotropin Qn 1.34 {uIU/mL} Normal 0.358-3.74 Compreh ensive Internal Medicine Work Phone: HEP-ABC [id number] By: [employer] stem Research Laboratory Specialist on 12-10-2008 Body surface area Derived from formula m2 Abnormal 0.00-0.99 Comprehensi Internal Medicine Work Phone: Comment on above: Status of Immunity A nti-HBs Level Inconsistent with Immunity 0.00 - 0.99 Consistent with Immunity >0.99 . An Index Value of 1.00 is equivalent to 10 mIU/mL. However the magnitude of the Index Value is not indicative of the total amount of antibody present. HEP-ABC [id number] [facility] Work Phone: HEP-ABC [id number] SeeNote Normal [facility] Work Phone: Comment on above: Result: Negative HEP-ABC [id number] <0.1 Normal 0.0-0.9 [facility] Work Phone: Comment on above: INFCE Result Units: s/co ratioNegativeNot infected with HCV, unless recent infection issuspected or other evidence exists to indicate HCVinfection.Performed At: [facility] [place], [place] [id number] HEP-ABC [id number] > 100 Abnormal 0.00-0.99 [facility] Work Phone: Comment on above: Status of Immunity A nti-HBs Level Inconsistent with Immunity 0.00 - 0.99 Consistent with Immunity >0.99 . An Index Value of 1.00 is equivalent to 10 mIU/mL. However the magnitude of the Index Value is not indicative of the total amount of antibody present. LIVEROrdered By: System Alexsandra young on 12-10-2008 Albumin mass conc 4.0 g/dL Normal 3.4-5.0 [facility] Work Phone: ALP enzyme act/vol 104 U/L Normal 50-136 [facility] Internal Medicine Work Phone: ALT enzyme act/vol 44 U/L Normal 30-65 [facility] Internal Medicine Work Phone: AST enzyme act/vol 13 U/L Abnormal 15-37 [facility] Internal Medicine Work Phone: Bilirubin mass conc 0.40 mg/dL Normal 0.00-1.00 Compr [facility] Internal Medicine Work Phone: Bilirubin.direct mass conc 0.10 mg/dL Normal 0.00-0.30 [facility] Work Phone: Protein mass conc 7.8 g/dL Normal 6.4-8.2 Compreh ensive Internal Medicine Work Phone: FOOT,MIN 3 VIEWS (MT)Ordered By: Sampler Tester on 10-29-2008 FOOT,MIN 3 VIEWS (MT) See Note Normal Com prehensive Internal Medicine Work Phone: Comment on above: Exam Number: [id number] RIGHT FOOT: HISTORY: Pain. No trauma. Pain times one year. FINDINGS: No previous studies are immediately available for comparison. Three views. The pattern of osseous mineralization is normal. There is no degenerative disease. There is no acute fracture or dislocation. A very small plantar calcaneal spur is noted. IMPRESSION: Small plantar calcaneal spur. No other significant abnormality. Reported By: BRIT LYNN M.D. CBCD,SMEAR DIFFOrdered By: S ystem Research Laboratory Specialist on 10-24-2008 Eosinophils/100 WBC (Bld) 1 % Normal 0-5 [facility] Work Phone: Eosinophils/100 WBC Auto (Bld) 1 % Normal 0-5 [facility] Work Phone: Erythrocyte distribution width (RBC) [Ratio] 14.0 % Normal 11.6-14.6 [facility] Work Phone: Erythrocyte distribution width Auto Ratio (RBC) 14.0 % Normal 11.6-14.6 [facility] Work Phone: Hematocrit (Bld) [Volume fraction] 45.3 % Normal 40-54 [facility] Work Phone: Hematocrit Auto Volume Fraction (Bld) 45.3 % Normal 40-54 [facility] Internal Medicine Work Phone: Hemoglobin mass conc (Bld) 15.6 g/dL Normal 14.0-18.0 [facility] Work Phone: Lymphocytes/100 WBC (Bld) 38 % Normal 19-41 [facility] Work Phone: Lymphocytes/100 WBC Auto (Bld) 38 % Normal 19-41 [facility] Work Phone: MCH (RBC) [Entitic mass] 28.9 pg Normal 27.0-32.0 [facility] Work Phone: MCH Auto Entitic mass (RBC) 28.9 pg Normal 27.0-32.0 [facility] Work Phone: MCHC (RBC) [Mass/Vol] 34.4 g/dL Normal 32-36 Com prehensive Internal Medicine Work Phone: MCHC Auto mass conc (RBC) 34.4 g/dL Normal 32-36 [facility] Work Phone: MCV (RBC) [Entitic vol] 84.1 fL Normal 80-94 [facility] Work Phone: MCV Auto Entitic volume (RBC) 84.1 fL Normal 80-94 [facility] Work Phone: Monocytes/100 WBC (Bld) 5 % Normal 0-10 [facility] Work Phone: Monocytes/100 WBC Auto (Bld) 5 % Normal 0-10 [facility] Work Phone: Platelets (Bld) [#/Vol] 312 10*3/uL Normal 150-450 [facility] Work Phone: Platelets (Bld) [#/Vol] SeeNote Normal [facility] Work Phone: Comment on above: Result: ADEQUATE Platelets Auto #/vol (Bld) 312 10*3/uL Normal 150-450 [facility] Work Phone: RBC (Bld) [#/Vol] 5.39 {M/mm3} Normal 4.6-6.2 Compr ehensive Internal Medicine Work Phone: RBC Auto #/vol (Bld) 5.39 {M/mm3} Normal 4.6-6.2 Co mprehensive Internal Medicine Work Phone: WBC (Bld) [#/Vol] 8.9 10*3/uL Normal 4.4-11.0 [facility] Work Phone: WBC Auto #/vol (Bld) 8.9 10*3/uL Normal 4.4-11.0 [facility] Work Phone: CBCD,SMEAR DIFF 100 1 Normal [facility] Work Phone: CBCD,SMEAR DIFF SeeNote Normal [facility] Internal [facility] Work Phone: Comment on above: Result: ADEQUATE Result: NORM C+C CBCD,SMEAR DIFF 56 % Normal 47-70 [facility] Internal [facility] Work Phone: COMP METABOLICOrdered By: Juan stem Research Laboratory Specialist on 10-24-2008 Albumin mass conc 4.2 g/dL Normal 3.4-5.0 [facility] Internal Medicine Work Phone: Albumin/Globulin mass ratio 1.1 {RATIO} Normal 0.9-2.4 [facility] Internal Medicine Work Phone: ALP enzyme act/vol 148 U/L Abnormal 50-136 [facility] Internal Medicine Work Phone: ALT enzyme act/vol 74 U/L Abnormal 30-65 [facility] Internal Medicine Work Phone: Anion gap 3 molar conc 7 mmol/L Normal 5-15 [facility] Internal Medicine Work Phone: Anion gap [Moles/Vol] 7 mmol/L Normal 5-15 [facility] Work Phone: AST enzyme act/vol 29 U/L Normal 15-37 [facility] Internal Medicine Work Phone: Bilirubin mass conc 0.48 mg/dL Normal 0.00-1.00 [facility] Internal Medicine Work Phone: Calcium mass conc 9.5 mg/dL Normal 8.5-10.1 [facility] Internal Medicine Work Phone: Chloride molar conc 102 mmol/L Normal 98-107 [facility] Internal Medicine Work Phone: CO2 molar conc 28.6 mmol/L Normal 21.0-32.0 [facility] Internal Medicine Work Phone: Creatinine mass conc 1.0 mg/dL Normal 0.8-1.3 Comp rehensive Internal Medicine Work Phone: GFR/1.73 sq M predicted among blacks MDRD vol rate/area (S/P/Bld) 116 mL/min/{1.73_m2} Normal Compreh ensive Internal Medicine Work Phone: GFR/1.73 sq M.predicted MDRD (S/P/Bld) [Vol rate/Area] 96 mL/min/{1.73_m2} Normal Comprehensiv e Internal Medicine Work Phone: GFR/1.73 sq M.predicted MDRD vol rate/area 96 mL/min/{1.73_m2} Normal Comprehensiv e Internal Medicine Work Phone: Globulin (S) [Mass/Vol] 3.8 g/dL Normal 2.7-4.2 [facility] Work Phone: Globulin Calculated mass conc (S) 3.8 g/dL Normal 2.7-4.2 [facility] Work Phone: Glucose mass conc 85 mg/dL Normal 70-110 Compreh ensive Internal Medicine Work Phone: Potassium molar conc 5.0 mmol/L Normal 3.5-5.1 Comp rehensive Internal Medicine Work Phone: Protein mass conc 8.0 g/dL Normal 6.4-8.2 Compreh ensive Internal Medicine Work Phone: Sodium molar conc 138 mmol/L Normal 136-145 Compreh ensive Internal Medicine Work Phone: Urea nitrogen mass conc 11 mg/dL Normal 7-18 [facility] Work Phone: Urea nitrogen/Creatinine mass ratio 11.0 {RATIO} Normal 10-20 [facility] Work Phone: LIPIDOrdered By: Sebas young on 10-24-2008 Cholesterol in HDL mass conc 35 mg/dL Normal [facility] Work Phone: Comment on above: Reference Range HDL <40 mg/dL Low HDL Cholesterol HDL >or= 60 mg/dL High HDL Cholesterol Cholesterol in LDL mass conc 121 mg/dL Normal 0-130 [facility] Work Phone: Cholesterol in VLDL mass conc 29 mg/dL Normal 5-40 [facility] Work Phone: Cholesterol mass conc 185 mg/dL Normal Com prehensive Internal Medicine Work Phone: Comment on above: <200 mg/dL Desirable 200-240 mg/dL Borderline >240 mg/dL High Risk Triglyceride mass conc 143 mg/dL Normal [facility] Work Phone: Comment on above: Serum Triglycerides Reference Interval Normal <150 mg/dL Borderline high 150 - 199 mg/dL High 200 - 499 mg/dL Very High > or = 500 mg/dL TSHOrdered By: System Manage r on 10-24-2008 Thyrotropin Qn 1.09 {uIU/mL} Normal 0.34-4.82 Compreh ensive Internal Medicine Work Phone: VITAMIN [id number] By: [facility] m Research Laboratory Specialist on 10-24-2008 Cobalamin (Vitamin B12) mass conc 431 pg/mL Normal 211-911 [facility] Work Phone: L/S SPINE,MIN 4 VIEWSOrdered By: Sampler Tester on 11-27-2007 L/S SPINE,MIN 4 VIEWS See Note Normal Com prehensive Internal Medicine Work Phone: Comment on above: Exam Number: [id number] LUMBAR SPINE COMPLETE CLINICAL INFORMATIONLow back pain. A complete lumbar spine series was performed. There are 5 lumbar typevertebral segments which appear normal in height and the disc spacesare normally maintained. There appears to be slight anterolisthesisof L4 with respect to L5 and there is a questionable pars lucency seenon the lateral view, however, on the oblique views, there is nodefinite pars defect seen. There appears to be a curvilinear lucencyover the pars on the left at L4 but this is thought to more likely beartifactual. IMPRESSIONVery slight anterolisthesis of L4 with respect to L5 and based on thelateral view there is suspicion of pars defect but this cannot beconfirmed on the oblique views. If there is sufficient clinicalconcern, consider other imaging. Reported By: CHRISTINE GONSALES M.D. Urinalysis, Office ([id number])Or dered By: Cecy Lockhart on 11-27-2007 Bilirubin Ql (U) Small Normal Comprehe nsive Internal Medicine Work Phone: Glucose Test strip mass conc (U) Small Normal [facility] Work Phone: Hemoglobin Ql (U) Hemolyzed Trace Normal Co mprehensive Internal Medicine Work Phone: Hemoglobin Test strip Ql (U) Hemolyzed Trace Normal [facility] Work Phone: Ketones Ql (U) Negative Normal Comprehens [facility] Work Phone: Leukocyte esterase Test strip Ql (U) Negative Normal [facility] Work Phone: Nitrite Ql (U) Negative Normal Comprehens [facility] Work Phone: Nitrite Test strip Ql (U) Negative Normal [facility] Work Phone: pH (U) 6.0 [pH] Normal [facility] Work Phone: pH Test strip (U) 6.0 [pH] Normal Compreh ensive Internal Medicine Work Phone: Protein Ql (U) Negative Normal Comprehens [facility] Work Phone: Protein Test strip Ql (U) Negative Normal [facility] Work Phone: Specific gravity Relative Density (U) 1.025 1 Normal Comprehensi ve Internal Medicine Work Phone: Urobilinogen mass/time (24H U) 2 mg/dL Normal [facility] Work Phone: Urinalysis, Office ([id number])on 11-27-2007 Ketones Ql (U) Negative Normal Comprehens [facility]; [facility] Work Phone: Leukocyte esterase Test strip Ql (U) Negative Normal [facility]; [facility] Work Phone: Nitrite Ql (U) Negative Normal Comprehens [facility]; [facility] Work Phone: Protein Ql (U) Negative Normal Comprehens [facility]; [facility] Work Phone: CBCD,SMEAR DIFFOrdered By: S ystem Research Laboratory Specialist on 04-09-2007 Eosinophils/100 WBC (Bld) 1 % Normal 0-5 [facility] Work Phone: Eosinophils/100 WBC Auto (Bld) 1 % Normal 0-5 [facility] Work Phone: Erythrocyte distribution width (RBC) [Ratio] 12.9 % Normal 11.6-14.6 [facility] Work Phone: Erythrocyte distribution width Auto Ratio (RBC) 12.9 % Normal 11.6-14.6 [facility] Work Phone: Hematocrit (Bld) [Volume fraction] 44.9 % Normal 40-54 [facility] Work Phone: Hematocrit Auto Volume Fraction (Bld) 44.9 % Normal 40-54 [facility] Work Phone: Hemoglobin mass conc (Bld) 15.6 g/dL Normal 14.0-18.0 [facility] Work Phone: Lymphocytes/100 WBC (Bld) 27 % Normal 19-41 [facility] Work Phone: Lymphocytes/100 WBC Auto (Bld) 27 % Normal 19-41 [facility] Internal Medicine Work Phone: MCH (RBC) [Entitic mass] 29.7 pg Normal 27.0-32.0 [facility] Work Phone: MCH Auto Entitic mass (RBC) 29.7 pg Normal 27.0-32.0 [facility] Internal Medicine Work Phone: MCHC (RBC) [Mass/Vol] 34.8 g/dL Normal 32-36 [facility] prehensive Internal Medicine Work Phone: MCHC Auto mass conc (RBC) 34.8 g/dL Normal 32-36 [facility] Internal Medicine Work Phone: MCV (RBC) [Entitic vol] 85.5 fL Normal 80-94 [facility] Work Phone: MCV Auto Entitic volume (RBC) 85.5 fL Normal 80-94 [facility] Internal Medicine Work Phone: Monocytes/100 WBC (Bld) 6 % Normal 0-10 [facility] Internal Medicine Work Phone: Monocytes/100 WBC Auto (Bld) 6 % Normal 0-10 [facility] Internal Medicine Work Phone: Platelets (Bld) [#/Vol] SeeNote Normal [facility] Internal Medicine Work Phone: Comment on above: Result: ADEQUATE Platelets (Bld) [#/Vol] 301 10*3/uL Normal 150-450 [facility] Internal Medicine Work Phone: Platelets Auto #/vol (Bld) 301 10*3/uL Normal 150-450 [facility] Internal Medicine Work Phone: RBC (Bld) [#/Vol] 5.25 {M/mm3} Normal 4.6-6.2 [facility] Internal Medicine Work Phone: RBC Auto #/vol (Bld) 5.25 {M/mm3} Normal 4.6-6.2 [facility] Internal Medicine Work Phone: WBC (Bld) [#/Vol] 6.7 10*3/uL Normal 4.4-11.0 [facility] Internal Medicine Work Phone: WBC Auto #/vol (Bld) 6.7 10*3/uL Normal 4.4-11.0 [facility] Internal Medicine Work Phone: CBCD,SMEAR DIFF 100 1 Normal [facility] Internal Medicine Work Phone: CBCD,SMEAR DIFF 66 % Normal 47-70 [facility] Internal Medicine Work Phone: COMP METABOLICOrdered By: Juan stem Research Laboratory Specialist on 04-09-2007 Albumin mass conc 3.9 g/dL Normal 3.4-5.0 Compre[facility] Internal Medicine Work Phone: Albumin/Globulin mass ratio 1.1 {RATIO} Normal 0.9-2.4 [facility] Internal Medicine Work Phone: ALP enzyme act/vol 72 U/L Normal 50-136 [facility] Internal Medicine Work Phone: ALT enzyme act/vol 43 [iU]/L Normal 30-65 Compre hensive Internal Medicine Work Phone: Anion gap 3 molar conc 9 mmol/L Normal 5-15 [facility] Work Phone: Anion gap [Moles/Vol] 9 mmol/L Normal 5-15 Com prehensive Internal Medicine Work Phone: AST enzyme act/vol 15 U/L Normal 15-37 Compre hensive Internal Medicine Work Phone: Bilirubin mass conc 0.48 mg/dL Normal 0.00-1.00 Compr ehensive Internal Medicine Work Phone: Calcium mass conc 8.9 mg/dL Normal 8.5-10.1 Compreh ensive Internal Medicine Work Phone: Chloride molar conc 104 mmol/L Normal 98-107 Compr ehensive Internal Medicine Work Phone: CO2 molar conc 28.4 mmol/L Normal 21.0-32.0 Comprehen sive Internal Medicine Work Phone: Comment on above: Please Note Refer ence Interval Change Creatinine mass conc 0.9 mg/dL Normal 0.8-1.3 Comp rehensive Internal Medicine Work Phone: Globulin (S) [Mass/Vol] 3.7 g/dL Normal 2.7-4.2 [facility] Work Phone: Comment on above: Please Note Refer ence Interval Change Globulin Calculated mass conc (S) 3.7 g/dL Normal 2.7-4.2 [facility] Work Phone: Comment on above: Please Note Refer ence Interval Change Glucose mass conc 85 mg/dL Normal 70-110 Compreh ensive Internal Medicine Work Phone: Potassium molar conc 4.7 mmol/L Normal 3.5-5.1 Comp rehensive Internal Medicine Work Phone: Protein mass conc 7.6 g/dL Normal 6.4-8.2 Compreh ensive Internal Medicine Work Phone: Sodium molar conc 141 mmol/L Normal 136-145 Compreh ensive Internal Medicine Work Phone: Urea nitrogen mass conc 15 mg/dL Normal 7-18 [facility] Work Phone: Urea nitrogen/Creatinine mass ratio 16.7 {RATIO} Normal 10-20 [facility] Work Phone: LIPIDOrdered By: Sebas young on 04-09-2007 Cholesterol in HDL mass conc 38 mg/dL Normal [facility] Work Phone: Comment on above: Reference Range HDL <40 mg/dL Low HDL Cholesterol HDL >or= 60 mg/dL High HDL Cholesterol Cholesterol in LDL mass conc 116 mg/dL Normal 0-130 [facility] Work Phone: Cholesterol in VLDL mass conc 24 mg/dL Normal 5-40 [facility] Work Phone: Cholesterol mass conc 178 mg/dL Normal Com prehensive Internal Medicine Work Phone: Comment on above: <200 mg/dL Desirable 200-240 mg/dL Borderline >240 mg/dL High Risk Triglyceride mass conc 119 mg/dL Normal [facility] Work Phone: Comment on above: Serum Triglycerides Reference Interval Normal <150 mg/dL Borderline high 150 - 199 mg/dL High 200 - 499 mg/dL Very High > or = 500 mg/dL ROUTINE UAOrdered By: Sampler Tester on 04-09-2007 Clarity (U) CLEAR Normal [facility] Work Phone: Color (U) YELLOW Normal [facility] Work Phone: Glucose mass conc SeeNote Normal Compreh ensive Internal Medicine Work Phone: Comment on above: Result: NEGATIVE Protein mass conc SeeNote Normal Compreh ensive Internal Medicine Work Phone: Comment on above: Result: NEGATIVE ROUTINE UA SeeNote Normal [facility] Work Phone: Comment on above: Result: NEGATIVE Result: NORM C&C Result: ADEQUATE ROUTINE UA 6.5 1 Normal 5.0-8.0 [facility] Work Phone: ROUTINE UA CLEAR Normal [facility] Work Phone: ROUTINE UA 1.025 1 Normal 1.002-1.03 0 [facility] Work Phone: ROUTINE UA 0.2 EU/dl Normal 0.2 - 1.0 [facility] Work Phone: ROUTINE UA YELLOW Normal [facility] Work Phone: TSHOrdered By: System Manage r on 04-09-2007 Thyrotropin Qn 0.91 {uIU/mL} Normal 0.34-4.82 Compreh ensive Internal Medicine Work Phone: Vital Signs Date Time Vital Sign Value Performing Clinician Facility 12-18-2024 09:20-0400 Diastolic blood pressure 69 mm[Hg] [facility] 12-18-2024 09:20-0400 Heart rate 50 /min [facility] 12-18-2024 09:20-0400 Systolic blood pressure 119 mm[Hg] [facility] [address] [facility] [facility] 04-28-2023 07:08-0400 Body height 173.35 cm Aarti Summers MD Work Phone: [facility]; [facility] Work Phone: 04-28-2023 07:08-0400 Body mass index (BMI) [Ratio] 37.13 kg/m2 Aarti Summers MD Work Phone: [facility]; [facility] Work Phone: 04-28-2023 07:08-0400 Body surface area Derived from formula 2.24 m2 Aarti Summers MD Work Phone: [facility]; [facility] Work Phone: 04-28-2023 07:08-0400 Body temperature 96.3 [degF] Aarti Summers MD Work Phone: [facility]; [facility] Work Phone: 04-28-2023 07:08-0400 Body weight 111.59 kg Aarti Summers MD Work Phone: [facility]; [facility] Work Phone: 04-28-2023 07:08-0400 Diastolic blood pressure 82 mm[Hg] Aarti Summers MD Work Phone: [facility]; [facility] Work Phone: 04-28-2023 07:08-0400 Heart rate 70 /min Aarti Summers MD Work Phone: [facility]; [facility] Work Phone: 04-28-2023 07:08-0400 SaO2% (BldA) [Mass fraction] 95 % Aarti Summers MD Work Phone: [facility]; [facility] Work Phone: 04-28-2023 07:08-0400 Systolic blood pressure 122 mm[Hg] Aarti Summers MD Work Phone: [facility]; [facility] Work Phone: 04-07-2023 07:39-0400 Body height 173.35 cm Billie Kostarb [employer] [facility]; [facility] Work Phone: 04-07-2023 07:39-0400 Body mass index (BMI) [Ratio] 39.7 kg/m2 Billie Slarb [employer] [facility]; [facility] Work Phone: 04-07-2023 07:39-0400 Body surface area Derived from formula 2.3 m2 Billie Slarb [employer] [facility]; [facility] Work Phone: 04-07-2023 07:39-0400 Body temperature 97.1 [degF] Billie Slarb [employer] [facility]; [facility] Work Phone: 04-07-2023 07:39-0400 Body weight 119.3 kg Billie Slarb [employer] [facility]; [facility] Work Phone: 04-07-2023 07:39-0400 Diastolic blood pressure 84 mm[Hg] Billie Slarb [employer] [facility]; [facility] Work Phone: 04-07-2023 07:39-0400 Heart rate 868 /min Billie Slarb [employer] [facility]; [facility] Work Phone: 04-07-2023 07:39-0400 Respiratory rate 17 /min Billie Amira GAONA [facility]; [facility] Work Phone: 04-07-2023 07:39-0400 SaO2% (BldA) [Mass fraction] 98 % Billie Amira GAONA [facility]; [facility] Work Phone: 04-07-2023 07:39-0400 Systolic blood pressure 142 mm[Hg] Billie Amira GAONA [facility]; [facility] Work Phone: 01-05-2023 07:03-0400 Body height 173.35 cm Karoline Mitchell MA [facility]; [facility] Work Phone: 01-05-2023 07:03-0400 Body mass index (BMI) [Ratio] 39.7 kg/m2 Karoline Mitchell MA [facility]; [facility] Work Phone: 01-05-2023 07:03-0400 Body surface area Derived from formula 2.3 m2 Karoline Mitchell MA [facility]; [facility] Work Phone: 01-05-2023 07:03-0400 Body weight 119.3 kg Karoline Mitchell MA [facility]; [facility] Work Phone: 12-15-2022 07:13-0400 Body height 173.35 cm Celina López LPN [facility]; [facility] Work Phone: 12-15-2022 07:13-0400 Body mass index (BMI) [Ratio] 39.7 kg/m2 Celina López LPN [facility]; [facility] Work Phone: 12-15-2022 07:13-0400 Body surface area Derived from formula 2.3 m2 Celina López LPN [facility]; [facility] Work Phone: 12-15-2022 07:13-0400 Body temperature 98.1 [degF] Celina López LPN [facility]; [facility] Work Phone: 12-15-2022 07:130400 Body weight 119.3 kg Celinacarolina López JIMENEZ [facility]; [facility] Work Phone: 12-15-2022 07:13-0400 Diastolic blood pressure 98 mm[Hg] Celina López LPN [facility]; [facility] Work Phone: 12-15-2022 07:13-0400 Heart rate 97 /min Celina López LPN [facility]; [facility] Work Phone: 12-15-2022 07:130400 Respiratory rate 16 /min Celina López LPN [facility]; [facility] Work Phone: 12-15-2022 07:13-0400 SaO2% (BldA) [Mass fraction] 97 % Celina López LPN [facility]; [facility] Work Phone: 12-15-2022 07:13-0400 Systolic blood pressure 150 mm[Hg] Celina Maribel JIMENEZ [facility]; [facility] Work Phone: 12-02-2022 07:17-0400 Body height 173.35 cm Billie Collier LPN [facility]; [facility] Work Phone: 12-02-2022 07:17-0400 Body mass index (BMI) [Ratio] 38.64 kg/m2 Billie Collier LPN [facility]; [facility] Work Phone: 12-02-2022 07:17-0400 Body surface area Derived from formula 2.28 m2 Billie Collier LPN [facility]; [facility] Work Phone: 12-02-2022 07:17-0400 Body temperature 97.3 [degF] Billie Collier LPN [facility]; [facility] Work Phone: 12-02-2022 07:17-0400 Body weight 116.12 kg Billie Collier LPN [facility]; [facility] Work Phone: 12-02-2022 07:17-0400 Diastolic blood pressure 82 mm[Hg] Billie Collier LPN [facility]; [facility] Work Phone: 12-02-2022 07:17-0400 Heart rate 87 /min Billie Kostarb [employer] [facility]; [facility] Work Phone: 12-02-2022 07:17-0400 Respiratory rate 16 /min Billie Collier LPN [facility]; [facility] Work Phone: 12-02-2022 07:17-0400 SaO2% (BldA) [Mass fraction] 96 % Billie Slalou TUCKERN [facility]; [facility] Work Phone: 12-02-2022 07:17-0400 Systolic blood pressure 126 mm[Hg] Billie Collier LPN [facility]; [facility] Work Phone: 06-03-2022 07:34-0500 Body height 173.[address] Galvan LPN [facility]; [facility] Work Phone: 06-03-2022 07:34-0500 Body mass index (BMI) [Ratio] 38.16 kg/m2 Lane Galvan LPN [facility]; [facility] Work Phone: 06-03-2022 07:34-0500 Body surface area Derived from formula 2.[address] Galvan LPN [facility]; [facility] Work Phone: 06-03-2022 07:34-0500 Body temperature 96.9 [degF] Lane Galvan LPN [facility]; [facility] Work Phone: 06-03-2022 07:34-0500 Body weight 114.[address] Galvan LPN [facility]; [facility] Work Phone: 06-03-2022 07:34-0500 Diastolic blood pressure 80 mm[Hg] Lane Galvan LPN [facility]; [facility] Work Phone: 06-03-2022 07:34-0500 Heart rate 89 /min Lane Galvan LPN [facility]; [facility] Work Phone: 06-03-2022 07:34-0500 Respiratory rate 16 /min Lane Galvan LPN [facility]; [facility] Work Phone: 06-03-2022 07:34-0500 SaO2% (BldA) [Mass fraction] 97 % Lane Galvan LPN [facility]; [facility] Work Phone: 06-03-2022 07:34-0500 Systolic blood pressure 134 mm[Hg] Lane Galvan LPN [facility]; [facility] Work Phone: 10-22-2021 08:05-0400 Body height 173.35 cm Billie Collier LPN [facility]; [facility] Work Phone: 10-22-2021 08:05-0400 Body mass index (BMI) [Ratio] 38.04 kg/m2 Billie Collier LPN [facility]; [facility] Work Phone: 10-22-2021 08:05-0400 Body surface area Derived from formula 2.26 m2 Billie Amira GAONA [facility]; [facility] Work Phone: 10-22-2021 08:05-0400 Body temperature 97.1 [degF] Billie Collier LPN [facility]; [facility] Work Phone: 10-22-2021 08:05-0400 Body weight 114.31 kg Billie Collier LPN [facility]; [facility] Work Phone: 10-22-2021 08:05-0400 Diastolic blood pressure 80 mm[Hg] Billie Slarb [employer] [facility]; [facility] Work Phone: 10-22-2021 08:05-0400 Heart rate 92 /min Billie Slarb [employer] [facility]; [facility] Work Phone: 10-22-2021 08:05-0400 Respiratory rate 16 /min Billie Kostarb JIMENEZ [facility]; [facility] Work Phone: 10-22-2021 08:05-0400 SaO2% (BldA) [Mass fraction] 97 % Billie Collier [employer] [facility]; [facility] Work Phone: 10-22-2021 08:05-0400 Systolic blood pressure 124 mm[Hg] Billie Collier [employer] [facility]; [facility] Work Phone: 05-07-2021 07:04-0400 Body height 173.35 cm Berta Sonido DO Work Phone: [facility]; [facility] Work Phone: 05-07-2021 07:04-0400 Body mass index (BMI) [Ratio] 38.04 kg/m2 Berta Sonido DO Work Phone: [facility]; [facility] Work Phone: 05-07-2021 07:04-0400 Body surface area Derived from formula 2.26 m2 Berta Sonido DO Work Phone: [facility]; [facility] Work Phone: 05-07-2021 07:04-0400 Body temperature 97.1 [degF] Berta Sonido DO Work Phone: [facility]; [facility] Work Phone: 05-07-2021 07:04-0400 Body weight 114.31 kg Berta Sonido DO Work Phone: [facility]; [facility] Work Phone: 05-07-2021 07:04-0400 Diastolic blood pressure 78 mm[Hg] Berta Sonido DO Work Phone: [facility]; [facility] Work Phone: 05-07-2021 07:04-0400 Heart rate 71 /min Berta Sonido DO Work Phone: [facility]; [facility] Work Phone: 05-07-2021 07:04-0400 Respiratory rate 17 /min Berta Sonido DO Work Phone: [facility]; [facility] Work Phone: 05-07-2021 07:04-0400 SaO2% (BldA) [Mass fraction] 94 % Berta Head DO Work Phone: [facility]; [facility] Work Phone: 05-07-2021 07:04-0400 Systolic blood pressure 120 mm[Hg] Berta Head DO Work Phone: [facility]; [facility] Work Phone: 11-05-2020 07:20-0400 BMI (Body Mass Index) 38.19 kg/m2 [facility]; [facility] Work Phone: 11-05-2020 07:20-0400 Body Temperature 97.1 [degF] Celina López LPN [facility]; [facility] Work Phone: Comment on above: Method: Infrared 11-05-2020 07:20-0400 Body weight 114.76 kg Celina López LPN [facility]; [facility] Work Phone: 11-05-2020 07:20-0400 BP Diastolic 98 mm[Hg] Celina López LPN [facility]; [facility] Work Phone: Comment on above: Patient Position: Sitting; Cuff Location : Left Arm; Cuff Size: Standard 11-05-2020 07:20-0400 BP Systolic 124 mm[Hg] Celina López LPN [facility]; [facility] Work Phone: Comment on above: Patient Position: Sitting; Cuff Location : Left Arm; Cuff Size: Standard 11-05-2020 07:20-0400 BSA (Body Surface Area) 2.26 m2 Celina López LPN [facility]; [facility] Work Phone: 11-05-2020 07:20-0400 Height 173.35 cm Celina López LPN [facility]; [facility] Work Phone: 11-05-2020 07:20-0400 Pulse (Heart Rate) 80 /min Celinacarolina Stovallcasa GAONA [facility]; [facility] Work Phone: Comment on above: Pattern: Regular 11-05-2020 07:20-0400 Pulse Oximetry 97 % Berta Head [facility]; [facility] Work Phone: Comment on above: Room air 11-05-2020 07:20-0400 Respiratory Rate 16 /min Celina López LPN [facility]; [facility] Work Phone: Comment on above: Pattern: Unlabored 11-05-2020 07:20-0400 SaO2% (BldA) [Mass fraction] 97 % Celina Maribel LPN [facility]; [facility] Work Phone: 03-26-2020 07:07-0400 BMI (Body Mass Index) 36.53 kg/m2 Eleanor Munoz [facility] Work Phone: 03-26-2020 07:07-0400 Body Temperature 96.6 [degF] Eleanor Munoz [facility] Work Phone: Comment on above: Method: Infrared 03-26-2020 07:07-0400 Body weight 109.77 kg Eleanor Munoz [facility] Work Phone: 03-26-2020 07:07-0400 BP Diastolic 80 mm[Hg] Eleanor Munoz [facility] Work Phone: Comment on above: Patient Position: Sitting; Cuff Location : Left Arm; Cuff Size: Standard 03-26-2020 07:07-0400 BP Systolic 120 mm[Hg] Eleanor Munoz [facility] Work Phone: Comment on above: Patient Position: Sitting; Cuff Location : Left Arm; Cuff Size: Standard 03-26-2020 07:07-0400 BSA (Body Surface Area) 2.22 m2 Eleanor Munoz [facility] Work Phone: 03-26-2020 07:07-0400 Height 173.35 cm Eleanor Munoz C[employer] SELECTION SPECIALIST [facility] Work Phone: 03-26-2020 07:07-0400 Pulse (Heart Rate) 81 /min Eleanor Munoz [facility] Work Phone: Comment on above: Pattern: Regular 03-26-2020 07:07-0400 Pulse Oximetry 96 % Berta Head [facility] Work Phone: Comment on above: Room air 03-26-2020 07:07-0400 Respiratory Rate 16 /min Eleanor Munoz [facility] Work Phone: Comment on above: Pattern: Unlabored 03-26-2020 07:07-0400 SaO2% (BldA) [Mass fraction] 96 % Eleanor Munoz [facility]; [facility] Work Phone: 10-28-2019 08:37-0400 BMI (Body Mass Index) 36.68 kg/m2 Donna Smith RN [facility] Work Phone: Comment on above: knows not fever 10-28-2019 08:37-0400 Body Temperature 98.6 [degF] Donna Smith RN [facility] Work Phone: Comment on above: Method: Temporal knows not fever 10-28-2019 08:37-0400 Body weight 110.22 kg Donna Smith RN [facility] Work Phone: Comment on above: knows not fever 10-28-2019 08:37-0400 BSA (Body Surface Area) 2.23 m2 Donna Smith RN [facility] Work Phone: Comment on above: knows not fever 10-28-2019 08:37-0400 Height 173.35 cm Donna Smith RN [facility] Work Phone: Comment on above: knows not fever 10-25-2019 13:55-0400 BMI (Body Mass Index) 36.7 kg/m2 Berta Head DO Work Phone: [facility] Work Phone: Comment on above: vitals not obtained due to telemedicine appt.temp take at work before dismissed 10-25-2019 13:55-0400 Body Temperature 149 [degF] Berta Reedon DO Work Phone: [facility] Work Phone: Comment on above: Method: Oral vitals not obtained due to telemedicine appt.temp take at work before dismissed 10-25-2019 13:55-0400 Body weight 110.28 kg Berta Sonido DO Work Phone: [facility] Work Phone: Comment on above: vitals not obtained due to telemedicine appt.temp take at work before dismissed 10-25-2019 13:55-0400 BSA (Body Surface Area) 2.23 m2 Berta Sonido DO Work Phone: [facility] Work Phone: Comment on above: vitals not obtained due to telemedicine appt.temp take at work before dismissed 10-25-2019 13:55-0400 Height 173.35 cm Berta Reedon DO Work Phone: [facility] Work Phone: Comment on above: vitals not obtained due to telemedicine appt.temp take at work before dismissed 10-16-2019 08:06-0400 BMI (Body Mass Index) 36.7 kg/m2 Billie Collier LPN [facility] Work Phone: Comment on above: facetime visit--pt did not check vitals 10-16-2019 08:06-0400 Body weight 110.28 kg Billie Slarb JIMENEZ [facility] Work Phone: Comment on above: facetime visit--pt did not check vitals 10-16-2019 08:06-0400 BSA (Body Surface Area) 2.23 m2 Billie Slarb [employer] [facility] Work Phone: Comment on above: facetime visit--pt did not check vitals 10-16-2019 08:06-0400 Height 173.35 cm Billie Slarb [employer] [facility] Work Phone: Comment on above: facetime visit--pt did not check vitals 07-15-2019 08:14-0500 BMI (Body Mass Index) 36.7 kg/m2 Eleanor Munoz [facility] Work Phone: 07-15-2019 08:14-0500 Body Temperature 96.1 [degF] Eleanor Munoz [facility] Work Phone: Comment on above: Method: Temporal 07-15-2019 08:14-0500 Body weight 110.28 kg Eleanor Munoz [facility] Work Phone: 07-15-2019 08:14-0500 BP Diastolic 90 mm[Hg] Eleanor Munoz [facility] Work Phone: Comment on above: Patient Position: Sitting; Cuff Location : Left Arm; Cuff Size: Standard 07-15-2019 08:14-0500 BP Systolic 128 mm[Hg] Eleanor Munoz [facility] Work Phone: Comment on above: Patient Position: Sitting; Cuff Location : Left Arm; Cuff Size: Standard 07-15-2019 08:14-0500 BSA (Body Surface Area) 2.23 m2 Eleanor Munoz [facility] Work Phone: 07-15-2019 08:14-0500 Height 173.35 cm Eleanor Munoz [facility] Medicine Work Phone: 07-15-2019 08:14-0500 Pulse (Heart Rate) 81 /min Eleanor Munoz [facility] Work Phone: Comment on above: Pattern: Regular 07-15-2019 08:14-0500 Pulse Oximetry 95 % Berta Head [facility] Medicine Work Phone: Comment on above: Room air 07-15-2019 08:14-0500 Respiratory Rate 18 /min Eleanor Munoz [facility] Work Phone: Comment on above: Pattern: Unlabored 07-15-2019 08:14-0500 SaO2% (BldA) [Mass fraction] 95 % Eleanor Munoz [facility]; [facility] Work Phone: 05-23-2019 10:27-0400 BMI (Body Mass Index) 36.09 kg/m2 Chaparrita Guerin RN [facility] Work Phone: 05-23-2019 10:27-0400 Body weight 108.47 kg Chaparrita Guerin RN [facility] Work Phone: 05-23-2019 10:27-0400 BP Diastolic 82 mm[Hg] Chaparrita Guerin RN [facility] Work Phone: Comment on above: Patient Position: Sitting; Cuff Location : Left Arm; Cuff Size: Large 05-23-2019 10:27-0400 BP Systolic 148 mm[Hg] Chaparrita Guerin RN [facility] Work Phone: Comment on above: Patient Position: Sitting; Cuff Location : Left Arm; Cuff Size: Large 05-23-2019 10:27-0400 BSA (Body Surface Area) 2.21 m2 Chaparrita Guerin RN [facility] Work Phone: 05-23-2019 10:27-0400 Height 173.35 cm Chaparrita Guerin RN [facility] Work Phone: 05-23-2019 10:27-0400 Pulse (Heart Rate) 62 /min Chaparrita Guerin RN [facility] Work Phone: Comment on above: Pattern: Regular 05-23-2019 10:27-0400 Pulse Oximetry 97 % Berta Head [facility] Work Phone: Comment on above: Room air 05-23-2019 10:27-0400 Respiratory Rate 18 /min Chaparrita Guerin RN [facility] Work Phone: Comment on above: Pattern: Unlabored 05-23-2019 10:27-0400 SaO2% (BldA) [Mass fraction] 97 % Chaparrita Guerin RN [facility]; [facility] Work Phone: 01-07-2019 08:53-0400 BMI (Body Mass Index) 36.11 kg/m2 Eleanor Munoz CERTIFICATION AND SELECTION SPECIALIST [facility] Work Phone: 01-07-2019 08:53-0400 Body Temperature 96.1 [degF] Eleanor Munoz CERTIFICATION AND SELECTION SPECIALIST [facility] Work Phone: Comment on above: Method: Temporal 01-07-2019 08:53-0400 Body weight 108.52 kg Eleanor Munoz [facility] Work Phone: 01-07-2019 08:53-0400 BP Diastolic 87 mm[Hg] Eleanor Munoz [facility] Work Phone: Comment on above: Patient Position: Sitting; Cuff Location : Left Arm; Cuff Size: Standard 01-07-2019 08:53-0400 BP Systolic 122 mm[Hg] Eleanor Munoz [facility] Work Phone: Comment on above: Patient Position: Sitting; Cuff Location : Left Arm; Cuff Size: Standard 01-07-2019 08:53-0400 BSA (Body Surface Area) 2.21 m2 Eleanor Munoz [facility] Work Phone: 01-07-2019 08:53-0400 Height 173.35 cm Eleanor Munoz [facility] Work Phone: 01-07-2019 08:53-0400 Pulse (Heart Rate) 70 /min Eleanor Munoz [facility] Work Phone: Comment on above: Pattern: Regular 01-07-2019 08:53-0400 Pulse Oximetry 97 % Berta Head [facility] Work Phone: Comment on above: Room air 01-07-2019 08:53-0400 Respiratory Rate 18 /min Eleanor Munoz [facility] Work Phone: Comment on above: Pattern: Unlabored 01-07-2019 08:53-0400 SaO2% (BldA) [Mass fraction] 97 % Eleanor Munoz [facility]; [facility] Work Phone: 01-07-2019 08:53-0400 Weight 108.52 kg Berta Head [facility] Work Phone: 09-27-2018 08:15-0500 BMI (Body Mass Index) 35.66 kg/m2 [facility] Work Phone: 09-27-2018 08:15-0500 Body weight 107.[address] Galvan LPN [facility] Work Phone: 09-27-2018 08:15-0500 BP Diastolic 80 mm[Hg] Lane Galvan LPN [facility] Work Phone: Comment on above: Patient Position: Sitting; Cuff Location : Left Arm; Cuff Size: Standard 09-27-2018 08:15-0500 BP Systolic 118 mm[Hg] Lane Galvan LPN [facility] Work Phone: Comment on above: Patient Position: Sitting; Cuff Location : Left Arm; Cuff Size: Standard 09-27-2018 08:15-0500 BSA (Body Surface Area) 2.[address] Galvan LPN [facility] Work Phone: 09-27-2018 08:15-[address] Galvan LPN [facility] Work Phone: 09-27-2018 08:15-0500 Pulse (Heart Rate) 69 /min Lane Galvan LPN [facility] Work Phone: Comment on above: Pattern: Regular 09-27-2018 08:15-0500 Pulse Oximetry 95 % Berta Head [facility] Medicine Work Phone: Comment on above: Room air 09-27-2018 08:15-0500 Respiratory Rate 16 /min Lane Galvan LPN [facility] Work Phone: Comment on above: Pattern: Unlabored 09-27-2018 08:15-0500 SaO2% (BldA) [Mass fraction] 95 % Lane Galvan LPN [facility]; [facility] Work Phone: 09-27-2018 08:15-0500 Weight 107.16 kg Berta Head [facility] Work Phone: 08-27-2018 14:29-0500 BMI (Body Mass Index) 35.66 kg/m2 Lane Galvan LPN [facility] Work Phone: 08-27-2018 14:29-0500 Body Temperature 98.2 [degF] Lane Galvan LPN [facility] Work Phone: Comment on above: Method: Temporal 08-27-2018 14:29-0500 Body weight 107.[address] Galvan LPN [facility] Work Phone: 08-27-2018 14:29-0500 BP Diastolic 84 mm[Hg] Lane Galvan LPN [facility] Internal Medicine Work Phone: Comment on above: Patient Position: Sitting; Cuff Location : Left Arm; Cuff Size: Standard 08-27-2018 14:29-0500 BP Systolic 124 mm[Hg] Lane Galvan LPN [facility] Internal Medicine Work Phone: Comment on above: Patient Position: Sitting; Cuff Location : Left Arm; Cuff Size: Standard 08-27-2018 14:29-0500 BSA (Body Surface Area) 2.[address] Galvan LPN [facility] Internal Medicine Work Phone: 08-27-2018 14:29-[address] Galvan LPN [facility] Internal Medicine Work Phone: 08-27-2018 14:29-0500 Pulse (Heart Rate) 85 /min Lane Cole GAONA [facility] Work Phone: Comment on above: Pattern: Regular 08-27-2018 14:29-0500 Pulse Oximetry 96 % Berta Head [facility] Internal Medicine Work Phone: Comment on above: Room air 08-27-2018 14:29-0500 Respiratory Rate 18 /min Lane Galvan [employer] [facility] Internal Medicine Work Phone: Comment on above: Pattern: Unlabored 08-27-2018 14:29-0500 SaO2% (BldA) [Mass fraction] 96 % Lane Galvan LPN [facility]; [facility] Work Phone: 08-27-2018 14:29-0500 Weight 107.16 kg Berta Sonido [facility] Internal Medicine Work Phone: 07-20-2018 08:10-0500 BMI (Body Mass Index) 36.24 kg/m2 Eleanor Baumanfranca [facility] Work Phone: 07-20-2018 08:10-0500 Body Temperature 96.9 [degF] Eleanor Gravius [facility] Work Phone: Comment on above: Method: Temporal 07-20-2018 08:10-0500 Body weight 108.92 kg Eleanor Munoz CMA [facility] Internal Medicine Work Phone: 07-20-2018 08:10-0500 BP Diastolic 83 mm[Hg] Eleanor Munoz CMA [facility] Internal Medicine Work Phone: Comment on above: Patient Position: Sitting; Cuff Location : Left Arm; Cuff Size: Standard 07-20-2018 08:10-0500 BP Systolic 116 mm[Hg] Eleanor Munoz CMA [facility] Internal Medicine Work Phone: Comment on above: Patient Position: Sitting; Cuff Location : Left Arm; Cuff Size: Standard 07-20-2018 08:10-0500 BSA (Body Surface Area) 2.22 m2 Eleanor Munoz [facility] Internal Medicine Work Phone: 07-20-2018 08:10-0500 Height 173.35 cm Eleanor Munoz [facility] Internal Medicine Work Phone: 07-20-2018 08:10-0500 Pulse (Heart Rate) 73 /min Eleanor Munoz [facility] Internal Medicine Work Phone: Comment on above: Pattern: Regular 07-20-2018 08:10-0500 Pulse Oximetry 97 % Berta Head [facility] Internal Medicine Work Phone: Comment on above: Room air 07-20-2018 08:10-0500 Respiratory Rate 16 /min Eleanor Munoz [facility] Internal Medicine Work Phone: Comment on above: Pattern: Unlabored 07-20-2018 08:10-0500 SaO2% (BldA) [Mass fraction] 97 % Eleanor Munoz [facility]; [facility] Work Phone: 07-20-2018 08:10-0500 Weight 108.92 kg Berta Head [facility] Internal Medicine Work Phone: 05-04-2018 13:19-0400 BMI (Body Mass Index) 35.19 kg/m2 Chaparrita Guerin RN [facility] Work Phone: 05-04-2018 13:19-0400 Body Temperature 97.7 [degF] Chaparrita Guerin RN [facility] Work Phone: Comment on above: Method: Temporal 05-04-2018 13:0400 Body weight 105.75 kg Chaparrita Guerin RN [facility] Work Phone: 05-04-2018 13:19-0400 BP Diastolic 74 mm[Hg] Chaparrita Guerin RN [facility] Work Phone: Comment on above: Patient Position: Sitting; Cuff Location : Left Arm; Cuff Size: Large 05-04-2018 13:-0400 BP Systolic 126 mm[Hg] Chaparrita Guerin RN [facility] Work Phone: Comment on above: Patient Position: Sitting; Cuff Location : Left Arm; Cuff Size: Large 05-04-2018 13:0400 BSA (Body Surface Area) 2.19 m2 Chaparrita Guerin RN [facility] Work Phone: 05-04-2018 13:0400 Height 173.35 cm Chaparrita Guerin RN [facility] Work Phone: 05-04-2018 13:19-0400 Pulse (Heart Rate) 75 /min Chaparrita Guerin RN [facility] Work Phone: Comment on above: Pattern: Regular 05-04-2018 13:19-0400 Pulse Oximetry 97 % Berta Sonido [facility] Work Phone: Comment on above: Room air 05-04-2018 13:-0400 Respiratory Rate 16 /min Chaparrita Guerin RN [facility] Work Phone: Comment on above: Pattern: Unlabored 05-04-2018 13:19-0400 SaO2% (BldA) [Mass fraction] 97 % Chaparrita Guerin RN [facility]; [facility] Work Phone: 05-04-2018 13:19-0400 Weight 105.75 kg Berta Reedon [facility] Work Phone: 02-07-2018 08:57-0400 BMI (Body Mass Index) 35.85 kg/m2 Chaparrita Guerin RN [facility] Work Phone: 02-07-2018 08:57-0400 Body weight 107.73 kg Chaparrita Guerin RN [facility] Work Phone: 02-07-2018 08:57-0400 BP Diastolic 90 mm[Hg] Chaparrita Guerin RN [facility] Work Phone: Comment on above: Patient Position: Sitting; Cuff Location : Left Arm; Cuff Size: Large 02-07-2018 08:57-0400 BP Systolic 122 mm[Hg] Chaparrita Guerin RN [facility] Work Phone: Comment on above: Patient Position: Sitting; Cuff Location : Left Arm; Cuff Size: Large 02-07-2018 08:57-0400 BSA (Body Surface Area) 2.2 m2 Chaparrita Guerin RN [facility] Work Phone: 02-07-2018 08:57-0400 Height 173.35 cm Chaparrita Guerin RN [facility] Work Phone: 02-07-2018 08:57-0400 Pulse (Heart Rate) 76 /min Chaparrita Guerin RN [facility] Work Phone: Comment on above: Pattern: Regular 02-07-2018 08:57-0400 Pulse Oximetry 97 % Berta Head [facility] Work Phone: Comment on above: Room air 02-07-2018 08:57-0400 Respiratory Rate 18 /min Chaparrita Guerin RN [facility] Work Phone: Comment on above: Pattern: Unlabored 02-07-2018 08:57-0400 SaO2% (BldA) [Mass fraction] 97 % Chaparrita Guerin RN [facility]; [facility] Work Phone: 02-07-2018 08:57-0400 Weight 107.73 kg Berta Head [facility] Work Phone: 08-03-2017 08:20-0500 BMI (Body Mass Index) 36.11 kg/m2 Donna Smith RN [facility] Internal Medicine Work Phone: 08-03-2017 08:20-0500 Body Temperature 101.2 [degF] Donna Smith RN [facility] Work Phone: Comment on above: Method: Temporal 08-03-2017 08:20-0500 Body weight 108.52 kg Donna Smith RN [facility] Work Phone: 08-03-2017 08:20-0500 BP Diastolic 74 mm[Hg] Donna Smith RN [facility] Work Phone: Comment on above: Patient Position: Sitting; Cuff Location : Left Arm; Cuff Size: Standard 08-03-2017 08:20-0500 BP Systolic 124 mm[Hg] Donna Smith RN [facility] Work Phone: Comment on above: Patient Position: Sitting; Cuff Location : Left Arm; Cuff Size: Standard 08-03-2017 08:20-0500 BSA (Body Surface Area) 2.21 m2 Donna Smith RN [facility] Work Phone: 08-03-2017 08:20-0500 Height 173.35 cm Donna Smith RN [facility] Work Phone: 08-03-2017 08:20-0500 Pulse (Heart Rate) 118 /min Donna Smith RN [facility] Work Phone: Comment on above: Pattern: Regular 08-03-2017 08:20-0500 Pulse Oximetry 94 % Berta Head [facility] Work Phone: Comment on above: Room air 08-03-2017 08:20-0500 Respiratory Rate 16 /min Donna Smith RN [facility] Work Phone: Comment on above: Pattern: Unlabored 08-03-2017 08:20-0500 SaO2% (BldA) [Mass fraction] 94 % Donna Smith RN [facility]; [facility] Work Phone: 08-03-2017 08:20-0500 Weight 108.52 kg Berta Sonido [facility] Work Phone: 05-12-2017 07:18-0400 BMI (Body Mass Index) 36.11 kg/m2 Chaparrita Guerin RN [facility] Work Phone: 05-12-2017 07:18-0400 Body weight 108.52 kg Chaparrita Guerin RN [facility] Work Phone: 05-12-2017 07:18-0400 BP Diastolic 78 mm[Hg] Chaparrita Guerin RN [facility] Work Phone: Comment on above: Patient Position: Sitting; Cuff Location : Left Arm; Cuff Size: Large 05-12-2017 07:18-0400 BP Systolic 124 mm[Hg] Chaparrita Guerin RN [facility] Work Phone: Comment on above: Patient Position: Sitting; Cuff Location : Left Arm; Cuff Size: Large 05-12-2017 07:18-0400 BSA (Body Surface Area) 2.21 m2 Chaparrita Guerin RN [facility] Work Phone: 05-12-2017 07:18-0400 Height 173.35 cm Chaparrita Guerin RN [facility] Work Phone: 05-12-2017 07:18-0400 Pulse (Heart Rate) 70 /min Chaparrita Guerin RN [facility] Work Phone: Comment on above: Pattern: Regular 05-12-2017 07:18-0400 Pulse Oximetry 97 % Berta Sonido [facility] Work Phone: Comment on above: Room air 05-12-2017 07:18-0400 Respiratory Rate 18 /min Chaparrita Guerin RN [facility] Work Phone: Comment on above: Pattern: Unlabored 05-12-2017 07:18-0400 SaO2% (BldA) [Mass fraction] 97 % Chaparrita Guerin RN [facility]; [facility] Work Phone: 05-12-2017 07:18-0400 Weight 108.52 kg Berta Head [facility] Work Phone: 02-09-2017 11:31-0400 BMI (Body Mass Index) 35.77 kg/m2 Chaparrita Guerin RN [facility] Work Phone: 02-09-2017 11:31-0400 Body Temperature 97.6 [degF] Chaparrita Guerin RN [facility] Work Phone: Comment on above: Method: Temporal 02-09-2017 11:31-0400 Body weight 107.5 kg Chaparrita Guerin RN [facility] Work Phone: 02-09-2017 11:31-0400 BP Diastolic 72 mm[Hg] Chaparrita Guerin RN [facility] Work Phone: Comment on above: Patient Position: Sitting; Cuff Location : Left Arm; Cuff Size: Large 02-09-2017 11:31-0400 BP Systolic 122 mm[Hg] Chaparrita Guerin RN [facility] Work Phone: Comment on above: Patient Position: Sitting; Cuff Location : Left Arm; Cuff Size: Large 02-09-2017 11:31-0400 BSA (Body Surface Area) 2.2 m2 Chaparrita Guerin RN [facility] Work Phone: 02-09-2017 11:31-0400 Height 173.35 cm Chaparrtia Guerin RN [facility] Work Phone: 02-09-2017 11:31-0400 Pulse (Heart Rate) 88 /min Chaparrita Guerin RN [facility] Work Phone: Comment on above: Pattern: Regular 02-09-2017 11:31-0400 Pulse Oximetry 96 % Berta Head [facility] Work Phone: Comment on above: Room air 02-09-2017 11:31-0400 Respiratory Rate 16 /min Chaparrita Guerin RN [facility] Work Phone: Comment on above: Pattern: Unlabored 02-09-2017 11:31-0400 SaO2% (BldA) [Mass fraction] 96 % Chaparrita Guerin RN [facility]; [facility] Work Phone: 02-09-2017 11:31-0400 Weight 107.5 kg Berta Head [facility] Work Phone: 12-22-2016 07:36-0400 BMI (Body Mass Index) 35.7 kg/m2 Chaparrita Guerin RN [facility] Work Phone: 12-22-2016 07:36-0400 Body weight 107.28 kg Chaparrita Guerin RN [facility] Work Phone: 12-22-2016 07:36-0400 BP Diastolic 80 mm[Hg] Chaparrita Guerin RN [facility] Work Phone: Comment on above: Patient Position: Sitting; Cuff Location : Left Arm; Cuff Size: Standard 12-22-2016 07:36-0400 BP Systolic 122 mm[Hg] Chaparrita Guerin RN [facility] Work Phone: Comment on above: Patient Position: Sitting; Cuff Location : Left Arm; Cuff Size: Standard 12-22-2016 07:36-0400 BSA (Body Surface Area) 2.2 m2 Chaparrita Guerin RN [facility] Work Phone: 12-22-2016 07:36-0400 Height 173.35 cm Chaparrita Guerin RN [facility] Work Phone: 12-22-2016 07:36-0400 Pulse (Heart Rate) 75 /min Chaparrita Guerin RN [facility] Work Phone: Comment on above: Pattern: Regular 12-22-2016 07:36-0400 Pulse Oximetry 96 % Berta Head [facility] Work Phone: Comment on above: Room air 12-22-2016 07:36-0400 Respiratory Rate 18 /min Chaparrita Guerin RN [facility] Work Phone: Comment on above: Pattern: Unlabored 12-22-2016 07:36-0400 SaO2% (BldA) [Mass fraction] 96 % Chaparrita Guerin RN [facility]; [facility] Work Phone: 12-22-2016 07:36-0400 Weight 107.28 kg Berta Head [facility] Work Phone: 07-28-2016 07:07-0500 BMI (Body Mass Index) 35.32 kg/m2 Chaparrita Guerin RN [facility] Work Phone: 07-28-2016 07:07-0500 Body weight 106.14 kg Chaparrita Guerin RN [facility] Work Phone: 07-28-2016 07:07-0500 BP Diastolic 72 mm[Hg] Chaparrita Guerin RN [facility] Work Phone: Comment on above: Patient Position: Sitting; Cuff Location : Left Arm; Cuff Size: Large 07-28-2016 07:07-0500 BP Systolic 120 mm[Hg] Chaparrita Guerin RN [facility] Work Phone: Comment on above: Patient Position: Sitting; Cuff Location : Left Arm; Cuff Size: Large 07-28-2016 07:07-0500 BSA (Body Surface Area) 2.19 m2 Chaparrita Guerin RN [facility] Work Phone: 07-28-2016 07:07-0500 Height 173.35 cm Chaparrita Guerin RN [facility] Work Phone: 07-28-2016 07:07-0500 Pulse (Heart Rate) 75 /min Chaparrita Guerin RN [facility] Work Phone: Comment on above: Pattern: Regular 07-28-2016 07:07-0500 Pulse Oximetry 98 % Berta Head [facility] Work Phone: Comment on above: Room air 07-28-2016 07:07-0500 Respiratory Rate 18 /min Chaparrita Guerin RN [facility] Work Phone: Comment on above: Pattern: Unlabored 07-28-2016 07:07-0500 SaO2% (BldA) [Mass fraction] 98 % Chaparrita Guerin RN [facility]; [facility] Work Phone: 07-28-2016 07:07-0500 Weight 106.14 kg Berta Sonido [facility] Work Phone: 07-05-2016 08:10-0500 BMI (Body Mass Index) 35.92 kg/m2 Donna Smith RN [facility] Internal Medicine Work Phone: 07-05-2016 08:10-0500 Body Temperature 98.4 [degF] Donna Smith RN [facility] Work Phone: Comment on above: Method: Temporal 07-05-2016 08:10-0500 Body weight 107.96 kg Donna Smith RN [facility] Work Phone: 07-05-2016 08:10-0500 BP Diastolic 78 mm[Hg] Donna Smith RN [facility] Work Phone: Comment on above: Patient Position: Sitting; Cuff Location : Left Arm; Cuff Size: Standard 07-05-2016 08:10-0500 BP Systolic 124 mm[Hg] Donna Smith RN [facility] Work Phone: Comment on above: Patient Position: Sitting; Cuff Location : Left Arm; Cuff Size: Standard 07-05-2016 08:10-0500 BSA (Body Surface Area) 2.21 m2 Donna Smith RN [facility] Work Phone: 07-05-2016 08:10-0500 Height 173.35 cm Donna Smith RN [facility] Work Phone: 07-05-2016 08:10-0500 Pulse (Heart Rate) 71 /min Donna Smith RN [facility] Work Phone: Comment on above: Pattern: Regular 07-05-2016 08:10-0500 Pulse Oximetry 97 % Berta Head [facility] Work Phone: Comment on above: Room air 07-05-2016 08:10-0500 Respiratory Rate 16 /min Donna Smith RN [facility] Work Phone: Comment on above: Pattern: Unlabored 07-05-2016 08:10-0500 SaO2% (BldA) [Mass fraction] 97 % Donna Smith RN [facility]; [facility] Work Phone: 07-05-2016 08:10-0500 Weight 107.96 kg Berta Head [facility] Work Phone: 02-25-2016 07:19-0400 BMI (Body Mass Index) 35.66 kg/m2 Chaparrita Guerin RN [facility] Work Phone: 02-25-2016 07:19-0400 Body weight 107.16 kg Chaparrita Guerin RN [facility] Work Phone: 02-25-2016 07:19-0400 BP Diastolic 80 mm[Hg] Chaparrita Guerin RN [facility] Work Phone: 02-25-2016 07:19-0400 BP Systolic 122 mm[Hg] Chaparrita Guerin RN [facility] Work Phone: 02-25-2016 07:19-0400 BSA (Body Surface Area) 2.2 m2 Chaparrita Guerin RN [facility] Work Phone: 02-25-2016 07:19-0400 Height 173.35 cm Chaparrita Guerin RN [facility] Work Phone: 02-25-2016 07:19-0400 Pulse (Heart Rate) 77 /min Chaparrita Guerin RN [facility] Work Phone: Comment on above: Pattern: Regular 02-25-2016 07:19-0400 Pulse Oximetry 97 % Berta Sonido [facility] Medicine Work Phone: Comment on above: Room air 02-25-2016 07:19-0400 SaO2% (BldA) [Mass fraction] 97 % Chaparrita Guerin RN [facility]; [facility] Work Phone: 02-25-2016 07:19-0400 Weight 107.16 kg Berta Head [facility] Medicine Work Phone: 11-27-2015 07:45-0400 BMI (Body Mass Index) 35.24 kg/m2 Billie Slarb CATERING [employer] [facility] Internal Medicine Work Phone: 11-27-2015 07:45-0400 Body Temperature 98.7 [degF] Billie Slarb [employer] [facility] Medicine Work Phone: 11-27-2015 07:45-0400 Body weight 105.92 kg Billie Slarb [employer] [facility] Medicine Work Phone: 11-27-2015 07:45-0400 BP Diastolic 84 mm[Hg] Billie Slarb [employer] [facility] Medicine Work Phone: Comment on above: Patient Position: Sitting; Cuff Location : Left Arm; Cuff Size: Standard 11-27-2015 07:45-0400 BP Systolic 122 mm[Hg] Billie Slarb [employer] [facility] Medicine Work Phone: Comment on above: Patient Position: Sitting; Cuff Location : Left Arm; Cuff Size: Standard 11-27-2015 07:45-0400 BSA (Body Surface Area) 2.19 m2 Billie Slarb [employer] [facility] Medicine Work Phone: 11-27-2015 07:45-0400 Height 173.35 cm Billie Collier JIMENEZ [facility] Work Phone: 11-27-2015 07:45-0400 Pulse (Heart Rate) 112 /min Billie Collier [employer] [facility] Work Phone: Comment on above: Pattern: Regular 11-27-2015 07:45-0400 Pulse Oximetry 95 % Berta Head [facility] Medicine Work Phone: Comment on above: Room air 11-27-2015 07:45-0400 Respiratory Rate 18 /min Billie Brambilalou [facility] Work Phone: Comment on above: Pattern: Unlabored 11-27-2015 07:45-0400 SaO2% (BldA) [Mass fraction] 95 % Billie Brambilalou [facility]; [facility] Work Phone: 11-27-2015 07:45-0400 Weight 105.92 kg Berta Head [facility] Work Phone: 05-29-2015 08:02-0500 BMI (Body Mass Index) 34.41 kg/m2 Mary Ann A Fast DO Work Phone: [facility] Work Phone: 05-29-2015 08:02-0500 Body Temperature 98.9 [degF] Mary Ann A Fast DO Work Phone: [facility] Work Phone: Comment on above: Method: Temporal 05-29-2015 08:02-0500 Body weight 103.42 kg Mary Ann A Fast DO Work Phone: [facility] Work Phone: 05-29-2015 08:02-0500 BP Diastolic 80 mm[Hg] Mary Ann A Fast DO Work Phone: [facility] Work Phone: Comment on above: Patient Position: Sitting; Cuff Location : Left Arm; Cuff Size: Large 05-29-2015 08:02-0500 BP Systolic 128 mm[Hg] Mary Ann A Fast DO Work Phone: [facility] Work Phone: Comment on above: Patient Position: Sitting; Cuff Location : Left Arm; Cuff Size: Large 05-29-2015 08:02-0500 BSA (Body Surface Area) 2.17 m2 Mary Ann A Fast DO Work Phone: [facility] Work Phone: 05-29-2015 08:02-0500 Height 173.35 cm Mary Ann A Fast DO Work Phone: [facility] Work Phone: 05-29-2015 08:02-0500 Pulse (Heart Rate) 88 /min Mary Ann A Fast DO Work Phone: [facility] Work Phone: Comment on above: Pattern: Regular 05-29-2015 08:02-0500 Pulse Oximetry 98 % Berta Head [facility] Medicine Work Phone: Comment on above: Room air 05-29-2015 08:02-0500 Respiratory Rate 16 /min Mary Ann A Fast DO Work Phone: [facility] Work Phone: Comment on above: Pattern: Unlabored 05-29-2015 08:02-0500 SaO2% (BldA) [Mass fraction] 98 % Mary Ann A Fast DO Work Phone: [facility]; [facility] Work Phone: 05-29-2015 08:02-0500 Weight 103.42 kg Berta Head [facility] Medicine Work Phone: 01-27-2015 08:53-0400 BMI (Body Mass Index) 35.47 kg/m2 Linda Revelesucsf [facility] Internal Medicine Work Phone: 01-27-2015 08:53-0400 Body Temperature 97.4 [degF] Linda Hallman [facility] Internal Medicine Work Phone: Comment on above: Method: Oral 01-27-2015 08:53-0400 Body weight 106.6 kg Linda Hallman [facility] Medicine Work Phone: 01-27-2015 08:53-0400 BP Diastolic 76 mm[Hg] Linda Rafkiran [facility] Internal Medicine Work Phone: Comment on above: Patient Position: Sitting; Cuff Location : Left Arm; Cuff Size: Large 01-27-2015 08:53-0400 BP Systolic 108 mm[Hg] Linda Irvingesha [facility] Internal Medicine Work Phone: Comment on above: Patient Position: Sitting; Cuff Location : Left Arm; Cuff Size: Large 01-27-2015 08:53-0400 BSA (Body Surface Area) 2.19 m2 Linda Viji [facility] Internal Medicine Work Phone: 01-27-2015 08:53-0400 Height 173.35 cm Linda Viji [facility] Medicine Work Phone: 01-27-2015 08:53-0400 Pulse (Heart Rate) 84 /min [facility] Work Phone: Comment on above: Pattern: Regular 01-27-2015 08:53-0400 Respiratory Rate 16 /min Linda Viji [facility] Internal Medicine Work Phone: Comment on above: Pattern: Unlabored 01-27-2015 08:53-0400 Weight 106.6 kg Berta Head [facility] Internal Medicine Work Phone: 10-07-2014 09:37-0400 BMI (Body Mass Index) 35.47 kg/m2 Linda Viji [facility] Internal Medicine Work Phone: 10-07-2014 09:37-0400 Body Temperature 97.8 [degF] Linda Viji [facility] Internal Medicine Work Phone: 10-07-2014 09:37-0400 Body weight 106.6 kg Linda Viji [facility] Medicine Work Phone: 10-07-2014 09:37-0400 BP Diastolic 92 mm[Hg] Linda Viji [facility] Internal Medicine Work Phone: Comment on above: Patient Position: Sitting; Cuff Location : Left Arm; Cuff Size: Large 10-07-2014 09:37-0400 BP Systolic 118 mm[Hg] Linda Carbonekiran [facility] Internal Medicine Work Phone: Comment on above: Patient Position: Sitting; Cuff Location : Left Arm; Cuff Size: Large 10-07-2014 09:37-0400 BSA (Body Surface Area) 2.19 m2 Linda Viji [facility] Internal Medicine Work Phone: 10-07-2014 09:37-0400 Height 173.35 cm Linda Irvingesha [facility] Medicine Work Phone: 10-07-2014 09:37-0400 Pulse (Heart Rate) 72 /min Linda Viji [facility] Internal Medicine Work Phone: Comment on above: Pattern: Regular 10-07-2014 09:37-0400 Respiratory Rate 16 /min Linda Viji [facility] Internal Medicine Work Phone: Comment on above: Pattern: Unlabored 10-07-2014 09:37-0400 Weight 106.6 kg Berta Head [facility] Internal Medicine Work Phone: 08-29-2014 12:18-0500 BMI (Body Mass Index) 35.24 kg/m2 Zahira Almendarez [facility] Internal Medicine Work Phone: 08-29-2014 12:18-0500 Body Temperature 96.3 [degF] Zahira Almendarez [facility] Internal Medicine Work Phone: Comment on above: Method: Oral 08-29-2014 12:18-0500 Body weight 105.92 kg Zahira Almendarez [facility] Internal Medicine Work Phone: 08-29-2014 12:18-0500 BP Diastolic 78 mm[Hg] Zahira Almendarez [facility] Internal Medicine Work Phone: Comment on above: Patient Position: Sitting; Cuff Location : Left Arm; Cuff Size: Standard 08-29-2014 12:18-0500 BP Systolic 126 mm[Hg] Zahira Almendarez [facility] Internal Medicine Work Phone: Comment on above: Patient Position: Sitting; Cuff Location : Left Arm; Cuff Size: Standard 08-29-2014 12:18-0500 BSA (Body Surface Area) 2.19 m2 Zahira Almendarez [facility] Internal Medicine Work Phone: 08-29-2014 12:18-0500 Height 173.35 cm Zahira Almendarez [facility] Internal Medicine Work Phone: 08-29-2014 12:18-0500 Pulse (Heart Rate) 62 /min Zahira Almendarez [facility] Internal Medicine Work Phone: Comment on above: Pattern: Regular 08-29-2014 12:18-0500 Respiratory Rate 16 /min Zahira Almendarez [facility] Internal Medicine Work Phone: Comment on above: Pattern: Unlabored 08-29-2014 12:18-0500 Weight 105.92 kg Berta Head [facility] Internal Medicine Work Phone: 08-26-2014 13:21-0500 BMI (Body Mass Index) 35.85 kg/m2 Billie Slarb [employer] [facility] Internal Medicine Work Phone: 08-26-2014 13:21-0500 Body Temperature 97.5 [degF] Billie Slarb [employer] [facility] Internal Medicine Work Phone: Comment on above: Method: Temporal 08-26-2014 13:21-0500 Body weight 107.73 kg Billie Slarb [employer] [facility] Internal Medicine Work Phone: 08-26-2014 13:21-0500 BP Diastolic 84 mm[Hg] Billie Slarb [employer] [facility] Internal Medicine Work Phone: Comment on above: Patient Position: Sitting; Cuff Location : Left Arm; Cuff Size: Standard 08-26-2014 13:21-0500 BP Systolic 140 mm[Hg] Billie Slarb [employer] [facility] Internal Medicine Work Phone: Comment on above: Patient Position: Sitting; Cuff Location : Left Arm; Cuff Size: Standard 08-26-2014 13:21-0500 BSA (Body Surface Area) 2.2 m2 Billie Slarb [employer] [facility] Work Phone: 08-26-2014 13:21-0500 Height 173.35 cm Billie Collier LPN [facility] Work Phone: 08-26-2014 13:21-0500 Pulse (Heart Rate) 64 /min Billie Collier LPN [facility] Internal Medicine Work Phone: Comment on above: Pattern: Regular 08-26-2014 13:21-0500 Pulse Oximetry 98 % Berta Head [facility] Internal Medicine Work Phone: Comment on above: Room air 08-26-2014 13:21-0500 Respiratory Rate 16 /min Billie Collier JIMENEZ [facility] Internal Medicine Work Phone: Comment on above: Pattern: Unlabored 08-26-2014 13:21-0500 SaO2% (BldA) [Mass fraction] 98 % Billie Brambilalou GAONA [facility] Internal Medicine; [facility] Work Phone: 08-26-2014 13:21-0500 Weight 107.73 kg Berta Head [facility] Internal Medicine Work Phone: 12-24-2013 10:47-0400 BMI (Body Mass Index) 35.62 kg/m2 Linda Viji [facility] Internal Medicine Work Phone: 12-24-2013 10:47-0400 Body Temperature 98.8 [degF] Linda Hallman [facility] Internal Medicine Work Phone: 12-24-2013 10:47-0400 Body weight 107.05 kg Linda Hallman [facility] Internal Medicine Work Phone: 12-24-2013 10:47-0400 BP Diastolic 60 mm[Hg] Linda Hallman [facility] Internal Medicine Work Phone: Comment on above: Patient Position: Sitting; Cuff Location : Left Arm; Cuff Size: Large 12-24-2013 10:47-0400 BP Systolic 102 mm[Hg] Linda Hallman [facility] Internal Medicine Work Phone: Comment on above: Patient Position: Sitting; Cuff Location : Left Arm; Cuff Size: Large 12-24-2013 10:47-0400 BSA (Body Surface Area) 2.2 m2 Linda Hallman [facility] Internal Medicine Work Phone: 12-24-2013 10:47-0400 Height 173.35 cm Linda Hallman [facility] Internal Medicine Work Phone: 12-24-2013 10:47-0400 Pulse (Heart Rate) 72 /min Linda Hallman [facility] Internal Medicine Work Phone: Comment on above: Pattern: Regular 12-24-2013 10:47-0400 Respiratory Rate 16 /min Linda Hallman [facility] Internal Medicine Work Phone: Comment on above: Pattern: Unlabored 12-24-2013 10:47-0400 Weight 107.05 kg Berta Head [facility] Internal Medicine Work Phone: 09-25-2013 09:04-0500 BMI (Body Mass Index) 34.56 kg/m2 Renettaregulo Goddard [facility] Internal Medicine Work Phone: 09-25-2013 09:04-0500 Body Temperature 98 [degF] [facility]: Comment on above: Method: Oral 09-25-2013 09:04-0500 Body weight 103.87 kg Renetta Goddard [facility] Internal Medicine Work Phone: 09-25-2013 09:04-0500 BP Diastolic 72 mm[Hg] Renetta [facility] Internal Medicine Work Phone: Comment on above: Patient Position: Sitting; Cuff Location : Left Arm; Cuff Size: Standard 09-25-2013 09:04-0500 BP Systolic 102 mm[Hg] Renetta [facility] Internal Medicine Work Phone: Comment on above: Patient Position: Sitting; Cuff Location : Left Arm; Cuff Size: Standard 09-25-2013 09:04-0500 BSA (Body Surface Area) 2.17 m2 Renettaregulo Goddard [facility] Internal Medicine Work Phone: 09-25-2013 09:04-0500 Height 173.35 cm Renetta Goddard [facility] Internal Medicine Work Phone: 09-25-2013 09:04-0500 Pulse (Heart Rate) 79 /min Renetta Goddard [facility] Internal Medicine Work Phone: Comment on above: Pattern: Regular 09-25-2013 09:04-0500 Pulse Oximetry 98 % Berta Head [facility] Internal Medicine Work Phone: Comment on above: Room air 09-25-2013 09:04-0500 Respiratory Rate 18 /min Renetta Goddard [facility] Internal Medicine Work Phone: Comment on above: Pattern: Unlabored 09-25-2013 09:04-0500 SaO2% (BldA) [Mass fraction] 98 % Renetta Goddard [facility] Internal [facility] Internal Medicine Work Phone: 09-25-2013 09:04-0500 Weight 103.87 kg Berta Head [facility] Internal Medicine Work Phone: 05-22-2013 08:28-0400 BMI (Body Mass Index) 34.56 kg/m2 Linda Viji [facility] Internal Medicine Work Phone: 05-22-2013 08:28-0400 Body Temperature 97.4 [degF] [facility] Work Phone: 05-22-2013 08:28-0400 Body weight 103.87 kg [facility] Work Phone: 05-22-2013 08:28-0400 BP Diastolic 80 mm[Hg] [facility] Work Phone: Comment on above: Patient Position: Sitting; Cuff Location : Left Arm; Cuff Size: Large 05-22-2013 08:28-0400 BP Systolic 120 mm[Hg] [facility] Work Phone: Comment on above: Patient Position: Sitting; Cuff Location : Left Arm; Cuff Size: Large 05-22-2013 08:28-0400 BSA (Body Surface Area) 2.17 m2 Linda Flinner [facility] Work Phone: 05-22-2013 08:28-0400 Height 173.35 cm Linda Flesha [facility] Work Phone: 05-22-2013 08:28-0400 Pulse (Heart Rate) 88 /min Linda Hallman [facility] Internal Medicine Work Phone: Comment on above: Pattern: Regular 05-22-2013 08:28-0400 Respiratory Rate 16 /min Linda Viji [facility] Work Phone: Comment on above: Pattern: Unlabored 05-22-2013 08:28-0400 Weight 103.87 kg Berta Head [facility] Work Phone: 04-26-2013 09:57-0400 BMI (Body Mass Index) 34.41 kg/m2 Donna Smith RN [facility] Internal Medicine Work Phone: 04-26-2013 09:57-0400 Body Temperature 98.2 [degF] Donna Smith RN [facility] Work Phone: Comment on above: Method: Temporal 04-26-2013 09:57-0400 Body weight 103.42 kg Donna Smith RN [facility] Work Phone: 04-26-2013 09:57-0400 BP Diastolic 78 mm[Hg] Donna Smith RN [facility] Work Phone: Comment on above: Patient Position: Sitting; Cuff Location : Left Arm; Cuff Size: Standard 04-26-2013 09:57-0400 BP Systolic 138 mm[Hg] Donna Smith RN [facility] Work Phone: Comment on above: Patient Position: Sitting; Cuff Location : Left Arm; Cuff Size: Standard 04-26-2013 09:57-0400 BSA (Body Surface Area) 2.17 m2 Donna Smith RN [facility] Work Phone: 04-26-2013 09:57-0400 Height 173.35 cm Donna Smith RN [facility] Work Phone: 04-26-2013 09:57-0400 Pulse (Heart Rate) 74 /min Donna Smith RN [facility] Work Phone: Comment on above: Pattern: Regular 04-26-2013 09:57-0400 Pulse Oximetry 99 % Berta Head [facility] Work Phone: Comment on above: Room air 04-26-2013 09:57-0400 Respiratory Rate 18 /min Donna Smith RN [facility] Work Phone: Comment on above: Pattern: Unlabored 04-26-2013 09:57-0400 SaO2% (BldA) [Mass fraction] 99 % Donna Smith RN [facility]; [facility] Work Phone: 04-26-2013 09:57-0400 Weight 103.42 kg Berta Head [facility] Work Phone: 03-05-2013 08:49-0400 BMI (Body Mass Index) 34.41 kg/m2 Rosibel Fajardo LPN [facility] Work Phone: Comment on above: I just took my bp med 03-05-2013 08:49-0400 Body Temperature 98.6 [degF] Rosibel Fajardo LPN [facility] Work Phone: Comment on above: Method: Oral I just took my bp med 03-05-2013 08:49-0400 Body weight 103.42 kg Rosibel Fajardo LPN [facility] Work Phone: Comment on above: I just took my bp med 03-05-2013 08:49-0400 BP Diastolic 80 mm[Hg] Rosibel Fajardo LPN [facility] Work Phone: Comment on above: Patient Position: Sitting; Cuff Location : Left Arm; Cuff Size: Standard I just took my bp med 03-05-2013 08:49-0400 BP Systolic 126 mm[Hg] Rosibel Fajardo LPN [facility] Work Phone: Comment on above: Patient Position: Sitting; Cuff Location : Left Arm; Cuff Size: Standard I just took my bp med 03-05-2013 08:49-0400 BSA (Body Surface Area) 2.17 m2 Rosibel Fajardo JIMENEZ [facility] Internal Medicine Work Phone: Comment on above: I just took my bp med 03-05-2013 08:49-0400 Height 173.35 cm Rosibel Fajardo JIMENEZ [facility] Internal Medicine Work Phone: Comment on above: I just took my bp med 03-05-2013 08:49-0400 Pulse (Heart Rate) 64 /min Rosibel Fajardo JIMENEZ [facility] Internal Medicine Work Phone: Comment on above: Pattern: Regular I just took my bp med 03-05-2013 08:49-0400 Pulse Oximetry 98 % Berta Head [facility] Internal Medicine Work Phone: Comment on above: Room air I just took my bp med 03-05-2013 08:49-0400 SaO2% (BldA) [Mass fraction] 98 % Rosibel Quevedolupillo GAONA [facility] Internal Medicine; [facility] Work Phone: 03-05-2013 08:49-0400 Weight 103.42 kg Berta Head [facility] Internal Medicine Work Phone: Comment on above: I just took my bp med 04-27-2012 09:05-0400 BMI (Body Mass Index) 34.41 kg/m2 Linda Hallman [facility] Internal Medicine Work Phone: 04-27-2012 09:05-0400 Body Temperature 98.4 [degF] Linda Hallman [facility] Internal Medicine Work Phone: 04-27-2012 09:05-0400 Body weight 103.42 kg Linda Hallman [facility] Internal Medicine Work Phone: 04-27-2012 09:05-0400 BP Diastolic 78 mm[Hg] Linda Hallman [facility] Internal Medicine Work Phone: Comment on above: Patient Position: Sitting; Cuff Location : Left Arm; Cuff Size: Large 04-27-2012 09:05-0400 BP Systolic 104 mm[Hg] Linda Hallman [facility] Internal Medicine Work Phone: Comment on above: Patient Position: Sitting; Cuff Location : Left Arm; Cuff Size: Large 04-27-2012 09:05-0400 BSA (Body Surface Area) 2.17 m2 Linda Irvingesha [facility] Internal Medicine Work Phone: 04-27-2012 09:05-0400 Height 173.35 cm Linda Irvingesha [facility] Internal Medicine Work Phone: 04-27-2012 09:05-0400 Pulse (Heart Rate) 78 /min [facility]iran [facility] Work Phone: Comment on above: Pattern: Regular 04-27-2012 09:05-0400 Respiratory Rate 16 /min Linda Viji [facility] Internal Medicine Work Phone: Comment on above: Pattern: Unlabored 04-27-2012 09:05-0400 Weight 103.42 kg Berta Head [facility] Internal Medicine Work Phone: 04-04-2012 13:19-0400 BMI (Body Mass Index) 34.41 kg/m2 Rosibel Scotty GAONA [facility] Internal Medicine Work Phone: 04-04-2012 13:19-0400 Body Temperature 98.2 [degF] Rosibel Scotty [employer]F [facility] Internal Medicine Work Phone: Comment on above: Method: Oral 04-04-2012 13:19-0400 Body weight 103.42 kg Rosibel Scotty [employer] [facility] Internal Medicine Work Phone: 04-04-2012 13:19-0400 BP Diastolic 82 mm[Hg] Rosibel Scotty GAONA [facility] Internal Medicine Work Phone: Comment on above: Patient Position: Sitting; Cuff Location : Left Arm; Cuff Size: Standard 04-04-2012 13:19-0400 BP Systolic 122 mm[Hg] Rosibel Fajardo JIMENEZ [facility] Internal Medicine Work Phone: Comment on above: Patient Position: Sitting; Cuff Location : Left Arm; Cuff Size: Standard 04-04-2012 13:19-0400 BSA (Body Surface Area) 2.17 m2 Rosibel Fajardo JIMENEZ [facility] Internal Medicine Work Phone: 04-04-2012 13:19-0400 Height 173.35 cm Rosibel Fajardo [employer] [facility] Internal Medicine Work Phone: 04-04-2012 13:19-0400 Pulse (Heart Rate) 82 /min Rosibel Fajardo LPN [facility] Internal Medicine Work Phone: Comment on above: Pattern: Regular 04-04-2012 13:19-0400 Respiratory Rate 18 /min Rosibel Fajardo [employer] [facility] Internal Medicine Work Phone: Comment on above: Pattern: Unlabored 04-04-2012 13:19-0400 Weight 103.42 kg Berta Head [facility] Internal Medicine Work Phone: 11-18-2011 07:27-0400 BMI (Body Mass Index) 34.41 kg/m2 Linda Hallman [facility] Internal Medicine Work Phone: 11-18-2011 07:27-0400 Body Temperature 97.2 [degF] Linda Hallman [facility] Internal Medicine Work Phone: 11-18-2011 07:27-0400 Body weight 103.42 kg Linda Hallman [facility] Internal Medicine Work Phone: 11-18-2011 07:27-0400 BP Diastolic 70 mm[Hg] Linda Hallman [facility] Internal Medicine Work Phone: Comment on above: Patient Position: Sitting; Cuff Location : Left Arm; Cuff Size: Large 11-18-2011 07:27-0400 BP Systolic 120 mm[Hg] Linda Hallman [facility] Internal Medicine Work Phone: Comment on above: Patient Position: Sitting; Cuff Location : Left Arm; Cuff Size: Large 11-18-2011 07:27-0400 BSA (Body Surface Area) 2.17 m2 Linda Hallman [facility] Internal Medicine Work Phone: 11-18-2011 07:27-0400 Height 173.35 cm Linda Hallman [facility] Internal Medicine Work Phone: 11-18-2011 07:27-0400 Pulse (Heart Rate) 76 /min Linda [facility]iji [facility] Work Phone: Comment on above: Pattern: Regular 11-18-2011 07:27-0400 Respiratory Rate 16 /min Linda Viji [facility] Internal Medicine Work Phone: Comment on above: Pattern: Unlabored 11-18-2011 07:27-0400 Weight 103.42 kg Berta Head [facility] Work Phone: 08-23-2011 08:34-0500 BMI (Body Mass Index) 35.02 kg/m2 Rosibel Fajardo [employer] [facility] Work Phone: 08-23-2011 08:34-0500 Body Temperature 97.6 [degF] Rosibel Fajardo [employer] [facility] Internal Medicine Work Phone: Comment on above: Method: Oral 08-23-2011 08:34-0500 Body weight 105.24 kg Rosibel Fajardo [employer]F [facility] Internal Medicine Work Phone: 08-23-2011 08:34-0500 BP Diastolic 78 mm[Hg] Rosibel Fajardo [employer] [facility] Work Phone: Comment on above: Patient Position: Sitting; Cuff Location : Left Arm; Cuff Size: Standard 08-23-2011 08:34-0500 BP Systolic 122 mm[Hg] Rosibel Fajardo [employer]F [facility] Internal Medicine Work Phone: Comment on above: Patient Position: Sitting; Cuff Location : Left Arm; Cuff Size: Standard 08-23-2011 08:34-0500 BSA (Body Surface Area) 2.18 m2 Rosibel Fajardo [employer]ERING [employer]F [facility] Internal Medicine Work Phone: 08-23-2011 08:34-0500 Height 173.35 cm Rosibel Fajardo [employer]F [facility] Internal Medicine Work Phone: 08-23-2011 08:34-0500 Pulse (Heart Rate) 90 /min Rosibel Fajardo [employer]F [facility] Internal Medicine Work Phone: Comment on above: Pattern: Regular 08-23-2011 08:34-0500 Respiratory Rate 18 /min Rosibel Fajardo LPN [facility] Internal Medicine Work Phone: Comment on above: Pattern: Unlabored 08-23-2011 08:34-0500 Weight 105.24 kg Berta Head [facility] Internal Medicine Work Phone: 07-15-2011 07:11-0500 BMI (Body Mass Index) 35.02 kg/m2 Linda Hallman [facility] Internal Medicine Work Phone: 07-15-2011 07:11-0500 Body Temperature 99.4 [degF] Linda Viji [facility] Internal Medicine Work Phone: 07-15-2011 07:11-0500 Body weight 105.24 kg Linda Viji [facility] Internal Medicine Work Phone: 07-15-2011 07:11-0500 BP Diastolic 82 mm[Hg] Linda Viji [facility] Internal Medicine Work Phone: Comment on above: Patient Position: Sitting; Cuff Location : Left Arm; Cuff Size: Large 07-15-2011 07:11-0500 BP Systolic 120 mm[Hg] Linda Viji [facility] Internal Medicine Work Phone: Comment on above: Patient Position: Sitting; Cuff Location : Left Arm; Cuff Size: Large 07-15-2011 07:11-0500 BSA (Body Surface Area) 2.18 m2 Linda Viji [facility] Internal Medicine Work Phone: 07-15-2011 [id number] Height 173.35 cm Linda Hallman [facility] Internal Medicine Work Phone: 07-15-2011 07:11-0500 Pulse (Heart Rate) 80 /min Linda Viji [facility] Internal Medicine Work Phone: Comment on above: Pattern: Regular 07-15-2011 07:11-0500 Respiratory Rate 16 /min Linda Hallman [facility] Internal Medicine Work Phone: Comment on above: Pattern: Unlabored 07-15-2011 07:11-0500 Weight 105.24 kg Berta Head [facility] Internal Medicine Work Phone: 06-14-2011 15:38-0500 BMI (Body Mass Index) 35.32 kg/m2 Linda Revelesucsf [facility] Internal Medicine Work Phone: 06-14-2011 15:38-0500 Body Temperature 97.9 [degF] Linda Hallman [facility] Internal Medicine Work Phone: 06-14-2011 15:38-0500 Body weight 106.14 kg Linda Hallman [facility] Internal Medicine Work Phone: 06-14-2011 15:38-0500 BP Diastolic 84 mm[Hg] Linda Hallman [facility] Internal Medicine Work Phone: Comment on above: Patient Position: Sitting; Cuff Location : Left Arm; Cuff Size: Large 06-14-2011 15:38-0500 BP Systolic 122 mm[Hg] Linda Hallman [facility] Internal Medicine Work Phone: Comment on above: Patient Position: Sitting; Cuff Location : Left Arm; Cuff Size: Large 06-14-2011 15:38-0500 BSA (Body Surface Area) 2.19 m2 Linda Hallman [facility] Internal Medicine Work Phone: 06-14-2011 15:38-0500 Height 173.35 cm Linda Hallman [facility] Internal Medicine Work Phone: 06-14-2011 15:38-0500 Pulse (Heart Rate) 96 /min [facility] Work Phone: Comment on above: Pattern: Regular 06-14-2011 15:38-0500 Respiratory Rate 18 /min Linda Hallman [facility] Internal Medicine Work Phone: Comment on above: Pattern: Unlabored 06-14-2011 15:38-0500 Weight 106.14 kg Berta Head [facility] Internal Medicine Work Phone: 05-11-2011 15:27-0400 BMI (Body Mass Index) 34.56 kg/m2 Linda Blum [facility] Internal Medicine Work Phone: 05-11-2011 15:27-0400 Body Temperature 97.9 [degF] Linda Hallman [facility] Internal Medicine Work Phone: 05-11-2011 15:27-0400 Body weight 103.87 kg Linda Hallman [facility] Internal Medicine Work Phone: 05-11-2011 15:27-0400 BP Diastolic 62 mm[Hg] Linda Hallman [facility] Internal Medicine Work Phone: Comment on above: Patient Position: Sitting; Cuff Location : Left Arm; Cuff Size: Large 05-11-2011 15:27-0400 BP Systolic 126 mm[Hg] Linda Hallman [facility] Internal Medicine Work Phone: Comment on above: Patient Position: Sitting; Cuff Location : Left Arm; Cuff Size: Large 05-11-2011 15:27-0400 BSA (Body Surface Area) 2.17 m2 Linda Irvingesha [facility] Internal Medicine Work Phone: 05-11-2011 15:27-0400 Height 173.35 cm Linda Hallman [facility] Internal Medicine Work Phone: 05-11-2011 15:27-0400 Pulse (Heart Rate) 108 /min Linda [facility] Internal [facility] Work Phone: Comment on above: Pattern: Regular 05-11-2011 15:27-0400 Respiratory Rate 18 /min Linda Carbonekiran [facility] Internal Medicine Work Phone: Comment on above: Pattern: Unlabored 05-11-2011 15:27-0400 Weight 103.87 kg Berta Head [facility] Internal Medicine Work Phone: 03-30-2011 10:14-0400 BMI (Body Mass Index) 35.02 kg/m2 Linda Irvingnabilkiran [facility] Internal Medicine Work Phone: 03-30-2011 10:14-0400 Body Temperature 97.6 [degF] Linda Irvingesha [facility] Internal Medicine Work Phone: 03-30-2011 10:14-0400 Body weight 105.24 kg Linda Viji [facility] Internal Medicine Work Phone: 03-30-2011 10:140400 BP Diastolic 82 mm[Hg] Linda Irvingnabilkiran [facility] Internal Medicine Work Phone: Comment on above: Patient Position: Sitting; Cuff Location : Left Arm; Cuff Size: Large 03-30-2011 10:140400 BP Systolic 120 mm[Hg] Linda iVji [facility] Internal Medicine Work Phone: Comment on above: Patient Position: Sitting; Cuff Location : Left Arm; Cuff Size: Large 03-30-2011 10:140400 BSA (Body Surface Area) 2.18 m2 Linda Viji [facility] Internal Medicine Work Phone: 03-30-2011 [id number] Height 173.35 cm Linda Viji [facility] Internal Medicine Work Phone: 03-30-2011 10:140400 Pulse (Heart Rate) 68 /min Linda Viji Revelesensiv e Internal Medicine Work Phone: Comment on above: Pattern: Regular 03-30-2011 10:140400 Respiratory Rate 16 /min Linda Viji [facility] Internal Medicine Work Phone: Comment on above: Pattern: Unlabored 03-30-2011 10:140400 Weight 105.24 kg Berta Head [facility] Internal Medicine Work Phone: 03-18-2011 10:27-0400 BMI (Body Mass Index) 34.11 kg/m2 Linda Viji Blum [facility] Internal Medicine Work Phone: 03-18-2011 10:27-0400 Body Temperature 97.7 [degF] Linda Viji [facility] Internal Medicine Work Phone: 03-18-2011 10:27-0400 Body weight 102.51 kg Linda Viji [facility] Internal Medicine Work Phone: 03-18-2011 10:27-0400 BP Diastolic 80 mm[Hg] Linda Viji [facility] Internal Medicine Work Phone: Comment on above: Patient Position: Sitting; Cuff Location : Left Arm; Cuff Size: Large 03-18-2011 10:27-0400 BP Systolic 112 mm[Hg] Linda Irvingesha [facility] Internal Medicine Work Phone: Comment on above: Patient Position: Sitting; Cuff Location : Left Arm; Cuff Size: Large 03-18-2011 10:27-0400 BSA (Body Surface Area) 2.16 m2 Linda Viji [facility] Internal Medicine Work Phone: 03-18-2011 10:27-0400 Height 173.35 cm Linda Viji [facility] Internal Medicine Work Phone: 03-18-2011 10:27-0400 Pulse (Heart Rate) 84 /min Linda Viji [facility] Internal Medicine Work Phone: Comment on above: Pattern: Regular 03-18-2011 10:27-0400 Respiratory Rate 16 /min Linda Hallman [facility] Internal Medicine Work Phone: Comment on above: Pattern: Unlabored 03-18-2011 10:27-0400 Weight 102.51 kg Berta Head [facility] Internal Medicine Work Phone: 12-01-2010 09:46-0400 BMI (Body Mass Index) 34.56 kg/m2 Linda Viji [facility] Internal Medicine Work Phone: 12-01-2010 09:46-0400 Body Temperature 97 [degF] Linda Hallman [facility] Internal Medicine Work Phone: 12-01-2010 09:46-0400 Body weight 103.87 kg Linda Viji [facility] Internal Medicine Work Phone: 12-01-2010 09:46-0400 BP Diastolic 84 mm[Hg] Linda Viji [facility] Internal Medicine Work Phone: Comment on above: Patient Position: Sitting; Cuff Location : Left Arm; Cuff Size: Large 12-01-2010 09:46-0400 BP Systolic 126 mm[Hg] Linda Viji [facility] Internal Medicine Work Phone: Comment on above: Patient Position: Sitting; Cuff Location : Left Arm; Cuff Size: Large 12-01-2010 09:46-0400 BSA (Body Surface Area) 2.17 m2 Linda Hallman [facility] Internal Medicine Work Phone: 12-01-2010 09:46-0400 Height 173.35 cm Linda Hallman [facility] Internal Medicine Work Phone: 12-01-2010 09:46-0400 Pulse (Heart Rate) 78 /min Linda Hallman [facility] Work Phone: Comment on above: Pattern: Regular 12-01-2010 09:46-0400 Respiratory Rate 16 /min Linda Hallman [facility] Internal Medicine Work Phone: Comment on above: Pattern: Unlabored 12-01-2010 09:46-0400 Weight 103.87 kg Berta Head [facility] Internal Medicine Work Phone: 09-08-2010 09:06-0500 Body Temperature 97.8 [degF] Linda Hallman [facility] Internal Medicine Work Phone: 09-08-2010 09:06-0500 Body weight 103.42 kg Linda Hallman [facility] Internal Medicine Work Phone: 09-08-2010 09:06-0500 BP Diastolic 84 mm[Hg] Linda Hallman [facility] Internal Medicine Work Phone: Comment on above: Patient Position: Sitting; Cuff Location : Right Arm; Cuff Size: Large 09-08-2010 09:06-0500 BP Systolic 128 mm[Hg] Linda Hallman [facility] Internal Medicine Work Phone: Comment on above: Patient Position: Sitting; Cuff Location : Right Arm; Cuff Size: Large 09-08-2010 09:06-0500 Pulse (Heart Rate) 84 /min Linda Hallman [facility] Work Phone: Comment on above: Pattern: Regular 09-08-2010 09:06-0500 Respiratory Rate 16 /min Linda Carbonekiran [facility] Internal Medicine Work Phone: Comment on above: Pattern: Unlabored 09-08-2010 09:06-0500 Weight 103.42 kg Berta Head [facility] Internal Medicine Work Phone: 06-16-2010 09:32-0500 Body Temperature 97.5 [degF] Linda Irvingesha [facility] Internal Medicine Work Phone: 06-16-2010 09:32-0500 Body weight 104.33 kg Linda Viji [facility] Internal Medicine Work Phone: 06-16-2010 09:32-0500 BP Diastolic 92 mm[Hg] Linda Irvingesha [facility] Internal Medicine Work Phone: Comment on above: Patient Position: Sitting; Cuff Location : Left Arm; Cuff Size: Large 06-16-2010 09:32-0500 BP Systolic 128 mm[Hg] Linda Irvingesha [facility] Internal Medicine Work Phone: Comment on above: Patient Position: Sitting; Cuff Location : Left Arm; Cuff Size: Large 06-16-2010 09:32-0500 Pulse (Heart Rate) 64 /min Linda Irvingesha [facility] Internal Medicine Work Phone: Comment on above: Pattern: Regular 06-16-2010 09:32-0500 Respiratory Rate 18 /min Linda Viji [facility] Internal Medicine Work Phone: Comment on above: Pattern: Unlabored 06-16-2010 09:32-0500 Weight 104.33 kg Berta Head [facility] Internal Medicine Work Phone: 02-12-2010 09:45-0400 Body weight 105.69 kg Mary Ann A Fast DO Work Phone: [facility] Internal Medicine Work Phone: 02-12-2010 09:45-0400 BP Diastolic 92 mm[Hg] Mary Ann A Fast DO Work Phone: [facility] Internal Medicine Work Phone: Comment on above: Patient Position: Sitting; Cuff Location : Left Arm; Cuff Size: Standard 02-12-2010 09:45-0400 BP Systolic 122 mm[Hg] Mary Ann A Fast DO Work Phone: [facility] Internal Medicine Work Phone: Comment on above: Patient Position: Sitting; Cuff Location : Left Arm; Cuff Size: Standard 02-12-2010 09:45-0400 Pulse (Heart Rate) 70 /min Mary Ann A Fast DO Work Phone: [facility] Internal Medicine Work Phone: Comment on above: Pattern: Regular 02-12-2010 09:45-0400 Respiratory Rate 18 /min Mary Ann A Fast DO Work Phone: [facility] Internal Medicine Work Phone: Comment on above: Pattern: Unlabored 02-12-2010 09:45-0400 Weight 105.69 kg Berta Head [facility] Internal Medicine Work Phone: 11-13-2009 09:31-0400 Body Temperature 96.8 [degF] Linda Hallman [facility] Internal Medicine Work Phone: 11-13-2009 09:31-0400 Body weight 102.51 kg Linda Hallman [facility] Internal Medicine Work Phone: 11-13-2009 09:31-0400 BP Diastolic 96 mm[Hg] Linda Hallman [facility] Internal Medicine Work Phone: Comment on above: Patient Position: Sitting; Cuff Location : Left Arm; Cuff Size: Standard 11-13-2009 09:31-0400 BP Systolic 142 mm[Hg] Linda Hallman [facility] Internal Medicine Work Phone: Comment on above: Patient Position: Sitting; Cuff Location : Left Arm; Cuff Size: Standard 11-13-2009 09:31-0400 Pulse (Heart Rate) 84 /min Linda Hallman [facility] Internal Medicine Work Phone: Comment on above: Pattern: Regular 11-13-2009 09:31-0400 Respiratory Rate 18 /min Linda Hallman [facility] Internal Medicine Work Phone: Comment on above: Pattern: Unlabored 11-13-2009 09:31-0400 Weight 102.51 kg Berta Head [facility] Internal Medicine Work Phone: 08-04-2009 14:47-0500 BP Diastolic 82 mm[Hg] Remedios Mast RN [facility] Work Phone: Comment on above: Patient Position: Standing; Cuff Locatio n: Left Arm; Cuff Size: Large 08-04-2009 14:47-0500 BP Systolic 124 mm[Hg] Remedios Mast RN [facility] Work Phone: Comment on above: Patient Position: Standing; Cuff Locatio n: Left Arm; Cuff Size: Large 08-04-2009 14:47-0500 Pulse (Heart Rate) 90 /min Remedios Mast RN [facility] Work Phone: Comment on above: Pattern: Regular 08-04-2009 14:47-0500 Respiratory Rate 20 /min Remedios Mast RN [facility] Work Phone: 08-04-2009 14:46-0500 BP Diastolic 78 mm[Hg] Remedios Mast RN [facility] Work Phone: Comment on above: Patient Position: Sitting; Cuff Location : Left Arm; Cuff Size: Large 08-04-2009 14:46-0500 BP Systolic 118 mm[Hg] Remedios Mast RN [facility] Work Phone: Comment on above: Patient Position: Sitting; Cuff Location : Left Arm; Cuff Size: Large 08-04-2009 14:46-0500 Pulse (Heart Rate) 94 /min Remedios Mast RN [facility] Work Phone: Comment on above: Pattern: Regular 08-04-2009 14:46-0500 Respiratory Rate 18 /min Remedios Mast RN [facility] Work Phone: 08-04-2009 14:45-0500 BP Diastolic 72 mm[Hg] Remedios Mast RN [facility] Work Phone: Comment on above: Patient Position: Supine; Cuff Location: Left Arm; Cuff Size: Large 08-04-2009 14:45-0500 BP Systolic 104 mm[Hg] Remedios Mast RN [facility] Work Phone: Comment on above: Patient Position: Supine; Cuff Location: Left Arm; Cuff Size: Large 08-04-2009 14:45-0500 Pulse (Heart Rate) 88 /min Remedios Long RN [facility] Internal Medicine Work Phone: Comment on above: Pattern: Regular 08-04-2009 14:45-0500 Respiratory Rate 18 /min Remedios Long RN [facility] Internal Medicine Work Phone: 08-04-2009 14:00-0500 Body Temperature 98.5 [degF] Linda Hallman [facility] Internal Medicine Work Phone: 08-04-2009 14:00-0500 BP Diastolic 100 mm[Hg] Linda Hallman [facility] Internal Medicine Work Phone: Comment on above: Patient Position: Sitting; Cuff Location : Left Arm; Cuff Size: Standard 08-04-2009 14:00-0500 BP Systolic 128 mm[Hg] Linda Hallman [facility] Internal Medicine Work Phone: Comment on above: Patient Position: Sitting; Cuff Location : Left Arm; Cuff Size: Standard 08-04-2009 14:00-0500 Pulse (Heart Rate) 110 /min Linda Hallman [facility] Internal Medicine Work Phone: Comment on above: Pattern: Regular 08-04-2009 14:00-0500 Respiratory Rate 18 /min Linda Hallman [facility] Internal Medicine Work Phone: Comment on above: Pattern: Unlabored 06-17-2009 08:13-0500 Body Temperature 97.6 [degF] [facility] Internal [facility] Work Phone: Comment on above: Method: Oral 06-17-2009 08:13-0500 Body weight 0 kg [facility] Medicine Work Phone: 06-17-2009 08:13-0500 BP Diastolic 80 mm[Hg] [facility] Internal Medicine Work Phone: Comment on above: Patient Position: Sitting; Cuff Location : Left Arm; Cuff Size: Large 06-17-2009 08:13-0500 BP Systolic 132 mm[Hg] [facility] Internal Medicine Work Phone: Comment on above: Patient Position: Sitting; Cuff Location : Left Arm; Cuff Size: Large 06-17-2009 08:13-0500 Head Circumference 0 cm Berta Head [facility] Work Phone: 06-17-2009 08:13-0500 Head Occipital-frontal circumference 0 cm [facility]; [facility] Work Phone: 06-17-2009 08:13-0500 Height 0 cm [facility] Internal Medicine Work Phone: 06-17-2009 08:13-0500 Pulse (Heart Rate) 98 /min [facility] Internal Medicine Work Phone: Comment on above: Pattern: Regular 06-17-2009 08:13-0500 Pulse Oximetry 98 % Berta Head [facility] Work Phone: Comment on above: Room air 06-17-2009 08:13-0500 Respiratory Rate 18 /min [facility] Internal Medicine Work Phone: Comment on above: Pattern: Unlabored 06-17-2009 08:13-0500 SaO2% (BldA) [Mass fraction] 98 % [facility] Internal Medicine; [facility] Work Phone: 06-17-2009 08:13-0500 Weight 0 kg Berta Head [facility] Work Phone: 06-15-2009 09:04-0500 Body Temperature 99.2 [degF] Rosibel Fajardo [facility] Work Phone: Comment on above: Method: Oral 06-15-2009 09:04-0500 Body weight 102.51 kg Rosibel Fajardo [employer] [facility] Work Phone: 06-15-2009 09:04-0500 BP Diastolic 92 mm[Hg] Rosibel Fajardo [employer] [facility] Work Phone: Comment on above: Patient Position: Sitting; Cuff Location : Left Arm; Cuff Size: Standard 06-15-2009 09:04-0500 BP Systolic 138 mm[Hg] Rosibel Fajardo [facility] Work Phone: Comment on above: Patient Position: Sitting; Cuff Location : Left Arm; Cuff Size: Standard 06-15-2009 09:04-0500 Head Circumference 0 cm Berta Head [facility] Internal Medicine Work Phone: 06-15-2009 09:04-0500 Head Occipital-frontal circumference 0 cm Rosibel Faajrdo JIMENEZ [facility] Internal Medicine; [facility] Work Phone: 06-15-2009 09:04-0500 Height 0 cm Rosibel Fajardo [employer] [facility] Work Phone: 06-15-2009 09:04-0500 Pulse (Heart Rate) 76 /min Rosibel Fajardo LPN [facility] Work Phone: Comment on above: Pattern: Regular 06-15-2009 09:04-0500 Respiratory Rate 17 /min Rosibel Fajardo LPN [facility] Internal Medicine Work Phone: Comment on above: Pattern: Unlabored 06-15-2009 09:04-0500 Weight 102.51 kg Berta Head [facility] Internal Medicine Work Phone: 04-16-2009 09:39-0400 Body Temperature 97.5 [degF] Linda Viji [facility] Internal Medicine Work Phone: Comment on above: Method: Undefined 04-16-2009 09:39-0400 Body weight 102.51 kg Linda Viji [facility] Internal Medicine Work Phone: 04-16-2009 09:39-0400 BP Diastolic 98 mm[Hg] Linda Hallman [facility] Internal Medicine Work Phone: Comment on above: Patient Position: Sitting; Cuff Location : Right Arm; Cuff Size: Standard 04-16-2009 09:39-0400 BP Systolic 138 mm[Hg] Linda Hallman [facility] Internal Medicine Work Phone: Comment on above: Patient Position: Sitting; Cuff Location : Right Arm; Cuff Size: Standard 04-16-2009 09:39-0400 Head Circumference 0 cm Berta Head [facility] Internal Medicine Work Phone: 04-16-2009 09:39-0400 Head Occipital-frontal circumference 0 cm Linda Hallman [facility]; [facility] Work Phone: 04-16-2009 09:39-0400 Height 0 cm Linda Hallman [facility] Internal Medicine Work Phone: 04-16-2009 09:39-0400 Pulse (Heart Rate) 68 /min Linda Carbonekiran [facility] Work Phone: Comment on above: Pattern: Regular 04-16-2009 09:39-0400 Respiratory Rate 16 /min Linda Carbonekiran [facility] Internal Medicine Work Phone: Comment on above: Pattern: Undefined 04-16-2009 09:39-0400 Weight 102.51 kg Berta Head [facility] Internal Medicine Work Phone: 03-13-2009 09:24-0400 Body Temperature 98 [degF] Linda Hallman [facility] Internal Medicine Work Phone: Comment on above: Method: Undefined 03-13-2009 09:24-0400 Body weight 102.97 kg Linda Irvingesha [facility] Internal Medicine Work Phone: 03-13-2009 09:24-0400 BP Diastolic 94 mm[Hg] Linda Irvingesha [facility] Internal Medicine Work Phone: Comment on above: Patient Position: Sitting; Cuff Location : Right Arm; Cuff Size: Standard 03-13-2009 09:24-0400 BP Systolic 124 mm[Hg] Linda Carbonekiran [facility] Internal Medicine Work Phone: Comment on above: Patient Position: Sitting; Cuff Location : Right Arm; Cuff Size: Standard 03-13-2009 09:24-0400 Head Circumference 0 cm Berta Head [facility] Internal Medicine Work Phone: 03-13-2009 09:24-0400 Head Occipital-frontal circumference 0 cm Linda Irvingesha [facility] Internal Medicine; [facility] Work Phone: 03-13-2009 09:24-0400 Height 0 cm Linda Irvingesha [facility] Internal Medicine Work Phone: 03-13-2009 09:24-0400 Pulse (Heart Rate) 68 /min Linda Irvingesha [facility] Work Phone: Comment on above: Pattern: Regular 03-13-2009 09:24-0400 Respiratory Rate 18 /min Linda Irvingesha [facility] Internal Medicine Work Phone: Comment on above: Pattern: Undefined 03-13-2009 09:24-0400 Weight 102.97 kg Berta Head [facility] Internal Medicine Work Phone: 12-25-2008 10:27-0400 Body weight 0 kg [facility] Internal Medicine Work Phone: 12-25-2008 10:27-0400 BP Diastolic 72 mm[Hg] [facility] Internal Medicine Work Phone: Comment on above: Patient Position: Sitting; Cuff Location : Left Arm; Cuff Size: Large 12-25-2008 10:27-0400 BP Systolic 132 mm[Hg] [facility] Internal Medicine Work Phone: Comment on above: Patient Position: Sitting; Cuff Location : Left Arm; Cuff Size: Large 12-25-2008 10:27-0400 Head [facility]umference 0 [facility] Work [facility]: 12-25-2008 10:27-0400 Head Occipital-frontal circumference 0 cm [facility] Internal Medicine Work Phone: 12-25-2008 10:27-0400 Height 0 cm [facility] Internal Medicine Work Phone: 12-25-2008 10:27-0400 Pulse (Heart Rate) 72 /min [facility] Internal Medicine Work Phone: Comment on above: Pattern: Regular 12-25-2008 10:27-0400 Respiratory Rate 18 /min [facility] Internal Medicine Work Phone: Comment on above: Pattern: Unlabored 12-25-2008 10:27-0400 Weight 0 kg Berta Head [facility] Internal Medicine Work Phone: 12-10-2008 14:00-0400 Body surface area Derived from formula m2 Berta Head [facility] Internal Medicine Work Phone: Comment on above: Status of Immunity Anti-HBs Level ------ Inconsistent with Immunity 0.00 - 0.99 Consistent with Immunity >0.99 . An Index Value of 1.00 is equivalent to 10 mIU/mL. However the magnitude of the Index Value is not indicative of the total amount of antibody present. 12-10-2008 10:08-0400 Body weight 0 kg Mary Ann A Fast DO Work Phone: [facility] Work Phone: 12-10-2008 10:08-0400 BP Diastolic 94 mm[Hg] Mary Ann A Fast DO Work Phone: [facility] Work Phone: Comment on above: Patient Position: Sitting; Cuff Location : Undefined; Cuff Size: Undefined 12-10-2008 10:08-0400 BP Systolic 128 mm[Hg] Mary Ann A Fast DO Work Phone: [facility] Work Phone: Comment on above: Patient Position: Sitting; Cuff Location : Undefined; Cuff Size: Undefined 12-10-2008 10:08-0400 Head Circumference 0 cm Berta Head [facility] Work Phone: 12-10-2008 10:08-0400 Head Occipital-frontal circumference 0 cm Mary Ann A Fast DO Work Phone: [facility]; [facility] Work Phone: 12-10-2008 10:08-0400 Height 0 cm Mary Ann A Fast DO Work Phone: [facility] Internal Medicine Work Phone: 12-10-2008 10:08-0400 Weight 0 kg Berta Head [facility] Internal Medicine Work Phone: 12-10-2008 09:30-0400 Body Temperature 99.4 [degF] Linda Hallman [facility] Internal Medicine Work Phone: Comment on above: Method: Undefined 12-10-2008 09:30-0400 Body weight 101.15 kg Linda Viji [facility] Internal Medicine Work Phone: 12-10-2008 09:30-0400 BP Diastolic 102 mm[Hg] Linda Irvingnabilkiran [facility] Internal Medicine Work Phone: Comment on above: Patient Position: Sitting; Cuff Location : Left Arm; Cuff Size: Large 12-10-2008 09:30-0400 BP Systolic 130 mm[Hg] Linda Irvingesha [facility] Internal Medicine Work Phone: Comment on above: Patient Position: Sitting; Cuff Location : Left Arm; Cuff Size: Large 12-10-2008 09:30-0400 Head Circumference 0 cm Berta Head [facility] Internal Medicine Work Phone: 12-10-2008 09:30-0400 Head Occipital-frontal circumference 0 cm Linda Irvingesha [facility] Internal [facility]; [facility] Work Phone: 12-10-2008 09:30-0400 Height 0 cm Linda Viji [facility] Internal Medicine Work Phone: 12-10-2008 09:30-0400 Pulse (Heart Rate) 84 /min Linda Hallman [facility] Internal Medicine Work Phone: Comment on above: Pattern: Regular 12-10-2008 09:30-0400 Respiratory Rate 18 /min Linda Carbonekiran [facility] Internal Medicine Work Phone: Comment on above: Pattern: Undefined 12-10-2008 09:30-0400 Weight 101.15 kg Berta Head [facility] Internal Medicine Work Phone: 10-24-2008 08:32-0400 Body Temperature 98.1 [degF] Linda Carbonekiran [facility] Internal Medicine Work Phone: Comment on above: Method: Undefined 10-24-2008 08:32-0400 Body weight 0 kg Linda Irvingesha [facility] Medicine Work Phone: 10-24-2008 08:32-0400 BP Diastolic 78 mm[Hg] Linda Viji [facility] Medicine Work Phone: Comment on above: Patient Position: Sitting; Cuff Location : Right Arm; Cuff Size: Standard 04-03-2009 08:32-0400 BP Systolic 116 mm[Hg] Linda Viji [facility] Internal Medicine Work Phone: Comment on above: Patient Position: Sitting; Cuff Location : Right Arm; Cuff Size: Standard 10-24-2008 08:32-0400 Head Circumference 0 cm Berta Head [facility] Internal Medicine Work Phone: 10-24-2008 08:32-0400 Head Occipital-frontal circumference 0 cm Linda Hallman [facility]; [facility] Work Phone: 10-24-2008 08:32-0400 Height 0 cm Linda Viji [facility] Medicine Work Phone: 10-24-2008 08:32-0400 Pulse (Heart Rate) 76 /min Linda Viji [facility] Internal Medicine Work Phone: Comment on above: Pattern: Regular 10-24-2008 08:32-0400 Respiratory Rate 16 /min Linda Hallman [facility] Internal Medicine Work Phone: Comment on above: Pattern: Undefined 10-24-2008 08:32-0400 Weight 0 kg Berta Head [facility] Internal Medicine Work Phone: 12-28-2007 08:14-0400 Body Temperature 97.8 [degF] CELESTINE Brit [facility] Internal Medicine Work Phone: Comment on above: Method: Oral 12-28-2007 08:14-0400 Body weight 0 kg CELESTINE Eduardo LPN [facility] Internal Medicine Work Phone: 12-28-2007 08:14-0400 BP Diastolic 78 mm[Hg] CELESTINE Eduardo LPN [facility] Internal Medicine Work Phone: Comment on above: Patient Position: Sitting; Cuff Location : Left Arm; Cuff Size: Standard 12-28-2007 08:14-0400 BP Systolic 118 mm[Hg] CELESTINE Eduardo LPN [facility] Internal Medicine Work Phone: Comment on above: Patient Position: Sitting; Cuff Location : Left Arm; Cuff Size: Standard 12-28-2007 08:14-0400 Head Circumference 0 cm Berta Head [facility] Medicine Work Phone: 12-28-2007 08:14-0400 Head Occipital-frontal circumference 0 cm CELESTINE Eduardo LPN [facility]; [facility] Work Phone: 12-28-2007 08:14-0400 Height 0 cm CELESTINE Eduardo LPN [facility] Work Phone: 12-28-2007 08:14-0400 Pulse (Heart Rate) 72 /min CELESTINE Eduardo LPN [facility] Work Phone: Comment on above: Pattern: Regular 12-28-2007 08:14-0400 Respiratory Rate 18 /min CELESTINE Eduardo LPN [facility] Work Phone: Comment on above: Pattern: Unlabored 12-28-2007 08:14-0400 Weight 0 kg Berta Head [facility] Medicine Work Phone: 11-27-2007 08:07-0400 Body Temperature 97.6 [degF] CELESTINE Eduardo [employer] [facility] Work Phone: Comment on above: Method: Oral 11-27-2007 08:07-0400 Body weight 0 kg CELESTINE Eduardo [employer] [facility] Work Phone: 11-27-2007 08:07-0400 BP Diastolic 78 mm[Hg] CELESTINE Eduardo [employer] [facility] Work Phone: Comment on above: Patient Position: Sitting; Cuff Location : Left Arm; Cuff Size: Standard 11-27-2007 08:07-0400 BP Systolic 122 mm[Hg] CELESTINE Eduardo LPN [facility] Work Phone: Comment on above: Patient Position: Sitting; Cuff Location : Left Arm; Cuff Size: Standard 11-27-2007 08:07-0400 Head Circumference 0 cm Berta Head [facility] Medicine Work Phone: 11-27-2007 08:07-0400 Head Occipital-frontal circumference 0 cm CELESTINE Eduardo [employer] [facility]; [facility] Work Phone: 11-27-2007 08:07-0400 Height 0 cm CELESTINE Eduardo LPN [facility] Work Phone: 11-27-2007 08:07-0400 Pulse (Heart Rate) 74 /min CELESTINE Eduardo [employer] [facility] Internal Medicine Work Phone: Comment on above: Pattern: Regular 11-27-2007 08:07-0400 Respiratory Rate 18 /min CELESTINE Eduardo LPN [facility] Internal Medicine Work Phone: Comment on above: Pattern: Unlabored 11-27-2007 08:07-0400 Weight 0 kg Berta Head [facility] Internal Medicine Work Phone: 11-05-2007 14:49-0400 BMI (Body Mass Index) 33 kg/m2 Linda Hallman [facility] Internal Medicine Work Phone: 11-05-2007 14:49-0400 Body Temperature 97.9 [degF] Linda Hallman [facility] Medicine Work Phone: Comment on above: Method: Undefined 11-05-2007 14:49-0400 Body weight 104.33 kg Linda Hallman [facility] Internal Medicine Work Phone: 11-05-2007 14:49-0400 BP Diastolic 70 mm[Hg] Linda Hallman [facility] Medicine Work Phone: Comment on above: Patient Position: Sitting; Cuff Location : Right Arm; Cuff Size: Standard 11-05-2007 14:49-0400 BP Systolic 116 mm[Hg] Linda Hallman [facility] Medicine Work Phone: Comment on above: Patient Position: Sitting; Cuff Location : Right Arm; Cuff Size: Standard 11-05-2007 14:49-0400 BSA (Body Surface Area) 2.22 m2 Linda Hallman [facility] Internal Medicine Work Phone: 11-05-2007 14:49-0400 Head Circumference 0 cm Berta Head [facility] Internal Medicine Work Phone: 11-05-2007 14:49-0400 Head Occipital-frontal circumference 0 cm Linda Hallman [facility] Medicine; [facility] Internal Medicine Work Phone: 11-05-2007 14:49-0400 Height 177.8 cm Linda Carbonekiran [facility] [facility] Work Phone: 11-05-2007 14:49-0400 Pulse (Heart Rate) 80 /min [facility] Work Phone: Comment on above: Pattern: Regular 11-05-2007 14:49-0400 Respiratory Rate 16 /min Linda Irvingesha [facility] Internal Medicine Work Phone: Comment on above: Pattern: Undefined 11-05-2007 14:49-0400 Weight 104.33 kg Berta Head [facility] Internal Medicine Work Phone: 08-21-2007 11:13-0500 BMI (Body Mass Index) 32.43 kg/m2 Rosibel Scotty GAONA [facility] Internal Medicine Work Phone: 08-21-2007 11:13-0500 Body Temperature 97 [degF] Rosibel Scotty GAONA [facility] Internal Medicine Work Phone: Comment on above: Method: Oral 08-21-2007 11:13-0500 Body weight 102.51 kg Rosibel Queevdolupillo GAONA [facility] Internal Medicine Work Phone: 08-21-2007 11:13-0500 BP Diastolic 88 mm[Hg] Rosibel Scotty GAONA [facility] Internal Medicine Work Phone: Comment on above: Patient Position: Sitting; Cuff Location : Left Arm; Cuff Size: Standard 08-21-2007 11:13-0500 BP Systolic 122 mm[Hg] Rosibel Fajardo JIMENEZ [facility] Internal Medicine Work Phone: Comment on above: Patient Position: Sitting; Cuff Location : Left Arm; Cuff Size: Standard 08-21-2007 11:13-0500 BSA (Body Surface Area) 2.2 m2 Rosibel Quevedolupillo GAONA [facility] Internal Medicine Work Phone: 08-21-2007 11:13-0500 Head Circumference 0 cm Berta Head [facility] Internal Medicine Work Phone: 08-21-2007 11:13-0500 Head Occipital-frontal circumference 0 cm Rosibel Fajardo JIMENEZ [facility]; [facility] Work Phone: 08-21-2007 11:13-0500 Height 177.8 cm Rosibel Fajardo LPN [facility] Internal Medicine Work Phone: 08-21-2007 11:13-0500 Pulse (Heart Rate) 74 /min Rosibel Fajardo LPN [facility] Internal Medicine Work Phone: Comment on above: Pattern: Regular 08-21-2007 11:13-0500 Respiratory Rate 16 /min Rosibel Fajardo LPN [facility] Internal Medicine Work Phone: Comment on above: Pattern: Unlabored 08-21-2007 11:13-0500 Weight 102.51 kg Berta Reedon [facility] Internal Medicine Work Phone: 03-23-2007 10:23-0400 BMI (Body Mass Index) 32.43 kg/m2 Remedios Long RN [facility] Internal Medicine Work Phone: 03-23-2007 10:23-0400 Body Temperature 97 [degF] Remedios Long RN [facility] Internal Medicine Work Phone: Comment on above: Method: Oral 03-23-2007 10:23-0400 Body weight 102.51 kg Remedios Long RN [facility] Internal Medicine Work Phone: 03-23-2007 10:23-0400 BP Diastolic 86 mm[Hg] Remedios Long RN [facility] Internal Medicine Work Phone: Comment on above: Patient Position: Sitting; Cuff Location : Right Arm; Cuff Size: Large 03-23-2007 10:23-0400 BP Systolic 122 mm[Hg] Remedios Long RN [facility] Internal Medicine Work Phone: Comment on above: Patient Position: Sitting; Cuff Location : Right Arm; Cuff Size: Large 03-23-2007 10:23-0400 BSA (Body Surface Area) 2.2 m2 Remedios Long RN [facility] Internal Medicine Work Phone: 03-23-2007 10:23-0400 Head Circumference 0 cm Berta Head [facility] Internal Medicine Work Phone: 03-23-2007 10:23-0400 Head Occipital-frontal circumference 0 cm Remedios Long RN [facility]; [facility] Work Phone: 03-23-2007 10:23-040 Height 177.8 cm Remedios Long RN [facility] Work Phone: 03-23-2007 10:23-0400 Pulse (Heart Rate) 76 /min Remedios Long RN [facility] Work Phone: Comment on above: Pattern: Regular 03-23-2007 10:23-0400 Respiratory Rate 16 /min Remedios Long RN [facility] Work Phone: Comment on above: Pattern: Unlabored 03-23-2007 10:23-0400 Weight 102.51 kg Berta Head [facility] Work Phone: 04-20-2006 15:13-0400 Body Temperature 97.8 [degF] Berta Head [facility] Work Phone: Comment on above: Method: Oral 04-20-2006 15:13-0400 Body weight 0 kg Berta Head [facility] Work Phone: 04-20-2006 15:13-0400 BP Diastolic 90 mm[Hg] Berta Head [facility] Work Phone: Comment on above: Patient Position: Sitting; Cuff Location : Undefined; Cuff Size: Undefined 04-20-2006 15:13-0400 BP Systolic 130 mm[Hg] Berta Head [facility] Work Phone: Comment on above: Patient Position: Sitting; Cuff Location : Undefined; Cuff Size: Undefined 04-20-2006 15:13-0400 Head Circumference 0 cm Berta Head [facility] Work Phone: 04-20-2006 15:13-0400 Head Occipital-frontal circumference 0 cm Berta Head DO Work Phone: [facility]; [facility] Work Phone: 04-20-2006 15:13-0400 Height 0 cm Berta Head [facility] Work Phone: 04-20-2006 15:13-0400 Pulse (Heart Rate) 78 /min Berta Reedon [facility] Work Phone: Comment on above: Pattern: Regular 04-20-2006 15:13-0400 Respiratory Rate 14 /min Berta Reedon [facility] Internal Medicine Work Phone: Comment on above: Pattern: Undefined 04-20-2006 15:13-0400 Weight 0 kg Berta Reedon [facility] Internal Medicine Work Phone: Encounters Encounter Date Encounter Type Care Provider Facility Start: 12-18-2024 End: 12-18-2024 Subsequent hospital visit by physician Brendan Hernandez [address] [facility] Comment on above: Abnormal result of o ther cardiovascular function study Start: 12-18-2024 End: 12-18[facility]: 11-28-[facility]24 ambulatory Aarti Summers Facility:[facility] Start: 11-28-2024 Non-patient / Non-visit Dr. Tucker oviedo MD -[facility] Start: 11-28-2024 End: 11-28-[address] Berta Head DO Work Phone: [facility] Work Phone: Start: 11-28-2024 End: 11-28-[address] Aarti Summers MD -[facility] Work Phone: Start: 11-28-2024 End: 11-28-2024 ambulatory Berta Head Facility:[facility] Start: 09-24-2024 End: 09-24-2024 Subsequent hospital visit by physician Brendan Hernandez 2 [facility] Comment on above: Essential (primary) hypertension Start: 09-24-2024 End: 09-24-2024 ambulatory [facility] Start: 04-01-2024 End: 04-01-2024 ambulatory Keegan PALOMINO Facility:[facility] Start: 02-03-2024 End: 02-03-2024 ambulatory Berta Head Facility:[facility] Start: 07-14-2023 End: 07-14-2023 ambulatory [facility] Work Phone: Start: 07-14-2023 End: 07-14-2023 Patient encounter procedure [facility] Work Phone: Start: 06-13-2023 End: 06-13-2023 ambulatory [facility] Work Phone: Start: 06-13-2023 End: 06-13-2023 Patient encounter procedure [facility] Work Phone: Start: 04-28-2023 End: 04-28-2023 Office outpatient visit 25 minutes Berta Sonido DO Work Phone: [facility] Start: 04-07-2023 Berta Fearo n DO Work Phone: [facility] Start: 04-07-2023 End: 04-11-2023 Office outpatient visit 10 minutes Berta Sonido DO Work Phone: [facility] Start: 01-23-2023 End: 01-23-2023 Office outpatient visit 10 minutes Berta Sonido DO Work Phone: [facility] Start: 01-06-2023 Berta Fearo n DO Work Phone: [facility] Start: 01-05-2023 End: 01-06-2023 Office outpatient visit 25 minutes Berta Sonido DO Work Phone: [facility] Start: 01-02-2023 End: 01-02-2023 Berta Sonido DO Work Phone: [facility] Start: 12-15-2022 End: 12-15-2022 Office outpatient visit 40 minutes Berta Sonido DO Work Phone: [facility] Start: 12-15-2022 End: 12-15-2022 Berta Sonido DO Work Phone: [facility] Start: 12-02-2022 ambulatory [facility] Start: 12-02-2022 End: 12-02-2022 Office outpatient visit 15 minutes Berta Sonido DO Work Phone: [facility] Start: 06-03-2022 Berta Fearo n DO Work Phone: [facility] Start: 06-03-2022 End: 06-03-2022 Office outpatient visit 15 minutes Berta Sonido DO Work Phone: [facility] Start: 10-22-2021 End: 10-22-2021 Office outpatient visit 25 minutes Berta Sonido DO Work Phone: [facility] Start: 10-04-2021 End: 10-04-2021 Berta Sonido DO Work Phone: [facility] Start: 09-29-2021 End: 09-29-2021 Berta Sonido DO Work Phone: [facility] Start: 08-17-2021 End: 08-17-2021 Office outpatient new 30 minutes Berta Sonido DO Work Phone: [facility] Start: 05-13-2021 End: 05-13-2021 Berta Sonido DO Work Phone: [facility] Start: 05-07-2021 End: 05-07-2021 Office outpatient visit 25 minutes Berta Sonido DO Work Phone: [facility] Start: 11-05-2020 End: 11-06-2020 Office outpatient visit 25 minutes Berta Sonido DO Work Phone: [facility] Start: 11-05-2020 Review Berta Sonido [facility] Start: 04-02-2020 End: 04-02-2020 Lab Order Berta Sonido [facility] [employer] [facility] Start: 04-02-2020 End: 04-02-2020 Berta Sonido DO Work Phone: [facility] Start: 03-26-2020 End: 03-26-2020 Patient encounter status Berta Sonido DO Work Phone: [facility] Start: 03-26-2020 End: 03-26-2020 Periodic preventive med est patient 18-39 yrs Berta Head [facility] Start: 01-16-2020 End: 01-17-2020 Office outpatient visit 5 minutes Bertaehsan Reededith [facility] Start: 10-28-2019 End: 10-28-2019 Office outpatient visit 10 minutes Berta Head [facility] Start: 10-25-2019 End: 10-25-2019 Office outpatient visit 15 minutes Bertaehsan Head [facility] Start: 10-16-2019 End: 10-16-2019 Office outpatient visit 10 minutes Bertaehsan Head [facility] Start: 07-15-2019 End: 07-15-2019 Office outpatient visit 25 minutes Berta Head [facility] Start: 05-23-2019 End: 05-23-2019 Patient encounter procedure Berta Head DO Work Phone: [facility] Start: 05-23-2019 End: 05-23-2019 Periodic preventive med est patient 40-64yrs Berta Reededith Mcmullen [facility] Start: 01-07-2019 End: 01-07-2019 Office outpatient visit 25 minutes Bertaehsan Head [facility] Start: 09-27-2018 End: 09-27-2018 Office outpatient visit 15 minutes Berta Head [facility] Start: 09-27-2018 Review Bertamira Head [facility] Start: 08-27-2018 End: 08-27-2018 Office outpatient visit 15 minutes Bertaehsan Reedon [facility] Start: 07-20-2018 End: 07-20-2018 Office outpatient visit 5 minutes Berta Sonido [facility] Start: 05-04-2018 End: 05-04-2018 Periodic preventive med est patient 18-39 yrs Berta Head [facility] Start: 05-04-2018 End: 05-04-2018 Physical examination Berta Head DO Work Phone: [facility] Start: 02-07-2018 End: 02-07-2018 Office outpatient visit 25 minutes Berta Sonido [facility] Start: 08-03-2017 End: 08-03-2017 Office outpatient visit 15 minutes Berta Sonido [facility] Start: 05-12-2017 End: 05-12-2017 Patient encounter procedure Berta Head DO Work Phone: [facility] Start: 05-12-2017 End: 05-12-2017 Periodic preventive med est patient 18-39 yrs Berta Head [facility] Start: 05-02-2017 End: 05-02-2017 Ambulatory [facility] Start: 02-09-2017 End: 02-09-2017 Office outpatient visit 15 minutes Berta Head [facility] Start: 12-22-2016 End: 12-22-2016 Office outpatient visit 15 minutes Berta Head [facility] Start: 07-28-2016 End: 07-28-2016 Office outpatient visit 25 minutes Berta Head [facility] Start: 07-06-2016 End: 07-06-2016 Phone Encounter Berta Head [facility] Start: 07-06-2016 End: 07-06-2016 Berta Head DO Work Phone: [facility] Start: 07-05-2016 End: 07-05-2016 Patient encounter Berta Sonido [facility] Start: 07-05-2016 End: 07-05-2016 Berta Head DO Work Phone: [facility] Start: 02-25-2016 End: 02-25-2016 Patient encounter procedure Berta Head DO Work Phone: [facility] Start: 02-25-2016 End: 02-25-2016 Periodic preventive med est patient 18-39 yrs Berta Head [facility] Start: 12-23-2015 End: 12-23-2015 Lab Order Berta Sonido [facility] Start: 12-23-2015 End: 12-23-2015 Berta Head DO Work Phone: [facility] Start: 11-27-2015 End: 11-30-2015 Office outpatient visit 25 minutes Berta Sonido [facility] Start: 06-02-2015 End: 06-02-2015 Lab Order Berta Sonido [facility] Start: 06-02-2015 End: 06-02-2015 Berta Head DO Work Phone: [facility] Start: 05-29-2015 End: 05-29-2015 Office outpatient visit 25 minutes Berta Sonido [facility] Start: 05-13-2015 End: 05-13-2015 Phone Encounter Berta Head [facility] Start: 05-13-2015 End: 05-13-2015 Berta Head DO Work Phone: [facility] Start: 01-27-2015 End: 01-27-2015 Office outpatient visit 25 minutes Berta Head [facility] Start: 10-07-2014 End: 10-07-2014 Office outpatient visit 25 minutes Berta Head [facility] Start: 08-29-2014 End: 08-31-2014 Office outpatient visit 15 minutes Berta Head [facility] Start: 08-26-2014 End: 08-26-2014 Office outpatient visit 15 minutes Berta Head [facility] Start: 12-24-2013 End: 12-24-2013 Patient encounter Berta Head [facility] Start: 12-24-2013 End: 12-24-2013 Berta Head DO Work Phone: [facility] Start: 09-25-2013 End: 09-25-2013 Office outpatient visit 15 minutes Berta Head [facility] Start: 05-22-2013 End: 05-22-2013 Patient encounter Berta Head [facility] Start: 05-22-2013 End: 05-22-2013 Berta Head DO Work Phone: [facility] Start: 04-26-2013 End: 04-29-2013 Patient encounter Berta Head [facility] Start: 04-26-2013 End: 04-29-2013 Berta Head DO Work Phone: [facility] Start: 03-05-2013 End: 03-05-2013 Office outpatient visit 15 minutes Berta Head [facility] Start: 04-27-2012 End: 04-27-2012 Patient encounter Berta Head [facility] Start: 04-27-2012 End: 04-27-2012 Berta Head DO Work Phone: [facility] Start: 04-04-2012 End: 04-04-2012 Office outpatient visit 25 minutes Berta Sonido [facility] Start: 11-29-2011 End: 12-01-2011 Phone Encounter Berta Head [facility] Start: 11-29-2011 End: 12-01-2011 Berta Head DO Work Phone: [facility] Start: 11-18-2011 End: 11-18-2011 Patient encounter Berta Head [facility] Start: 11-18-2011 End: 11-18-2011 Berta Head DO Work Phone: [facility] Start: 08-23-2011 End: 08-23-2011 Office outpatient visit 25 minutes Berta Head [facility] Start: 07-15-2011 End: 07-15-2011 Patient encounter Berta Head [facility] Start: 07-15-2011 End: 07-15-2011 Berta Head DO Work Phone: [facility] Start: 06-14-2011 End: 06-14-2011 Patient encounter Berta Head [facility] Start: 06-14-2011 End: 06-14-2011 Berta Head DO Work Phone: [facility] Start: 05-11-2011 End: 05-11-2011 Patient encounter Berta Head [facility] Start: 05-11-2011 End: 05-11-2011 Berta Head DO Work Phone: [facility] Start: 03-30-2011 End: 03-30-2011 Patient encounter Berta Head [facility] Start: 03-30-2011 End: 03-30-2011 Berta Head DO Work Phone: [facility] Start: 03-18-2011 End: 03-18-2011 Patient encounter Berta Head [facility] Start: 03-18-2011 End: 03-18-2011 Berta Head DO Work Phone: [facility] Start: 12-01-2010 End: 12-01-2010 Patient encounter Berta Head [facility] Start: 12-01-2010 End: 12-01-2010 Berta Head DO Work Phone: [facility] Start: 09-08-2010 End: 09-08-2010 Patient encounter Berta Head [facility] Start: 09-08-2010 End: 09-08-2010 Berta Head DO Work Phone: [facility] Start: 06-16-2010 End: 06-16-2010 Patient encounter Berta Head [facility] Start: 06-16-2010 End: 06-16-2010 Berta Head DO Work Phone: [facility] Start: 02-12-2010 End: 02-12-2010 Patient encounter Berta Head [facility] Start: 02-12-2010 End: 02-12-2010 Berta Head DO Work Phone: [facility] Start: 11-13-2009 End: 11-13-2009 Patient encounter Berta Head [facility] Start: 11-13-2009 End: 11-13-2009 Berta Head DO Work Phone: [facility] Start: 08-04-2009 End: 08-04-2009 Patient encounter Berta Head [facility] Start: 08-04-2009 End: 08-04-2009 Berta Head DO Work Phone: [facility] Start: 06-22-2009 End: 06-22-2009 Phone Encounter Berta Head [facility] Start: 06-22-2009 End: 06-22-2009 Berta Head DO Work Phone: [facility] Start: 06-17-2009 End: 06-17-2009 Annotation/Addendum Berta Head [facility] Start: 06-17-2009 End: 06-17-2009 Berta Head DO Work Phone: [facility] Start: 06-17-2009 End: 06-17-2009 Office outpatient visit 15 minutes Berta Head [facility] Start: 06-15-2009 End: 06-15-2009 Office outpatient visit 25 minutes Berta Head [facility] Start: 04-16-2009 End: 04-16-2009 Patient encounter Berta Head [facility] Start: 04-16-2009 End: 04-16-2009 Berta Head DO Work Phone: [facility] Start: 03-13-2009 End: 03-13-2009 Patient encounter Berta Head [facility] Start: 03-13-2009 End: 03-13-2009 Berta Head DO Work Phone: [facility] Start: 12-29-2008 End: 12-29-2008 Historical Summary Berta Head [facility] Start: 12-29-2008 End: 12-29-2008 Berta Head DO Work Phone: [facility] Start: 12-25-2008 End: 12-25-2008 Office outpatient visit 10 minutes Berta Head [facility] Start: 12-10-2008 End: 12-18-2008 Patient encounter Berta Head [facility] Start: 12-10-2008 End: 12-18-2008 Berta Head DO Work Phone: [facility] Start: 10-24-2008 End: 10-27-2008 Patient encounter Berta Head [facility] Start: 10-24-2008 End: 10-27-2008 Berta Head DO Work Phone: [facility] Start: 09-04-2008 End: 09-04-2008 Historical Summary Berta Head [facility] Start: 09-04-2008 End: 09-04-2008 Berta Head DO Work Phone: [facility] Start: 12-28-2007 End: 12-28-2007 Patient encounter Berta Head [facility] Start: 12-28-2007 End: 12-28-2007 Berta Reedon DO Work Phone: [facility] Start: 11-27-2007 End: 11-27-2007 Patient encounter Berta Head [facility] Start: 11-27-2007 End: 11-27-2007 Berta Sonido DO Work Phone: [facility] Start: 11-05-2007 End: 11-05-2007 Patient encounter Berta Head [facility] Start: 11-05-2007 End: 11-05-2007 Berta Sonido DO Work Phone: [facility] Start: 08-21-2007 End: 08-21-2007 Office outpatient visit 15 minutes Berta Head [facility] Start: 03-23-2007 End: 03-23-2007 Patient encounter Berta Head [facility] Start: 03-23-2007 End: 03-23-2007 Berta Head DO Work Phone: [facility] Start: 04-20-2006 End: 04-20-2006 Office outpatient visit 25 minutes Berta Head [facility] Start: 04-19-2006 End: 04-19-2006 Historical Summary Berta Head [facility] Start: 04-19-2006 End: 04-19-2006 Berta Head DO Work Phone: [facility] Patient encounter procedure Celina López LPN [facility]; [facility] Work Phone: Patient encounter procedure Aarti Summers MD Work Phone: [facility]; [facility] Work Phone: Patient encounter procedure Billie Collier LPN [facility]; [facility] Work Phone: Patient encounter procedure [address] [place] CATERING CHEF [facility]; [facility] Work Phone: Patient encounter procedure Billie Collier [facility]ER[employer] [facility]; [facility] Work Phone: Patient encounter procedure Celina López LPN [facility]; [facility] Work Phone: Patient encounter procedure Freddy Goff [facility]ER[employer] [facility]; [facility] Work Phone: Patient encounter procedure Billie Slarb [facility] [facility]; [facility] Work Phone: Patient encounter procedure Karoline Mitchell MA [facility]; [facility] Work Phone: Patient encounter status Celina López LP N [facility]; [facility] Work Phone: Patient encounter status Aarti Summers MD Work Phone: [facility]; [facility] Work Phone: Patient encounter status Billie Collier [employer]ER[employer] [facility] [facility]; [facility] Work Phone: Patient encounter status [address] Gal[address] CATERING CHEF [facility]; [facility] Work Phone: Patient encounter status Billie Collier CATERING CHEF [facility]; [facility] Work Phone: Patient encounter status Celina López LP N [facility]; [facility] Work Phone: Patient encounter status Freddy Goff [employer]ER[employer]; [facility] Work Phone: Patient encounter status Billie Collier [facility]ERING CHEF [facility]; [facility] Work Phone: Patient encounter status Karoline Mitchell MA [facility]; [facility] Work Phone: Physical examination Chaparrita Guerin RN [facility]; [facility] Work Phone: Procedures Date Procedure Procedure Detail Performing Clinician Start: 12-18-2024 Cta hrt cornry art/bypass grfts contrst 3d post Berta Head DO Work Phone: Start: 11-28-2024 Radionuclide imaging of perfusion of myocardium under exercise stress Dr. Berta Head DO Work Phone: Start: 09-24-2024 Ct heart no contrast quant eval coronry calcium Berta Head DO Work Phone: Start: 06-05-2022 End: 06-05-2022 Procedure Note: See Note; NOTES: [facility] Services [address] [place] [id number] OFFICE VISIT Date of Service: 06/05/22 MR#: [id number] Acct: [id number] Patient: MARTINEZ TESFAYE Rep #: [id number] : 1980 Provider: GEORGETTE gee Age/Sex: 41/M Location: [facility] Status: Signed Intake Vital Signs 06/05/22 12:19 BP 128/76 H Blood Pressure Location Lt brachial Position Sitting Respiration 14 Pulse 91 Pulse Source Monitor Temp 97.2 F L Temp Source Temporal Pulse Oximetry (%) 97 Oxygen Delivery Method room air Intake Visit Reasons: BODY ACHES/SORE THROAT/CHILLS Chief Complaint: Sinus pressure x3 weeks Allergies No Known Allergies Allergy (Verified 04/12/21 19:28) [facility] Medical History Chronic neck and back pain High blood pressure Kidney stones Surgical History History of back surgery Hx of cholecystectomy Social History Smoking Status: Never smoker HPI HPI Chief Complaint: Sinus pressure x3 weeks Details: MARTINEZ TESFAYE, is a 41 M who presents to the office today for persistant cough, fatigue, and chills. pt reports sx first began Apr 23- since then he has battled a moderately productive cough, chills off and on, fatigue and congestions. He was prescribed an antibiotic course 3 weeks ago with no benefit. He reports he got his flu shot 2 days ago and this seemed to worsen symptoms. Pt reports he has some intermittent shortness of breath with deep breaths and moderate activity. Pt denies dizziness, headache, fever, nausea, vomiting, chills, difficulty breathing, chest pain or hx of pneumonia or COPD. ROS Const Constitutional: Positive for other (see HPI) Exam Const General: cooperative, comfortable, no acute distress and well developed HENMT Head: normal to inspection and atraumatic Nose: external nose normal, nares normal and nasal mucous membranes and turbinates normal Face and sinus: normal facial exam and sinuses nontender Mouth: oral mucosae normal Teeth and gingiva: dentition normal and gingiva normal Throat: uvula midline and other (mild erythema of posterior pharynx) Neck Neck: normal visual inspection, full ROM and no lymphadenopathy Chest Chest palpation inspection: normal inspection of the chest and normal palpation of entire chest wall Resp Effort Inspection: normal respiratory effort, able to speak in complete sentences and cough (deep) Quality of cough: productive Auscultation: Left: Clear to Auscultation and Right: Expiratory Wheezes Cardio Rate: regular rate Rhythm: regular rhythm Neuro General: patient alert, patient awake and patient oriented x3 Coding Level of Care Code Off vis,est,level 2 Diagnoses Recurrent upper respiratory infection (URI) J06.9 Assessment and Plan Assessment and Plan (1) Recurrent upper respiratory infection (URI): Status: Acute Plan: Begin abx and prednisone course. Discussed CXR and sputum culture if no improvement. Continue rest, hydration, nutrition and analgesics PRN. Go to ER if fever spikes, worsening cough, shortnress of breath, dizziness or confusion occurs. Medications: New cefdinir 300 mg PO BID 14 caps 0RF benzonatate 200 mg PO BID-TID 7 days PRN 21 caps 0RF cough prednisone Take 2 tab (40 mg) x 2 days then 1 tab (20mg) x 2 days then 1/2 tab (10mg) x 2 days then stop 20 mg PO DIRECTED 6 days 7 tabs 0RF 06/05/22 1334 <Electronically signed by Azeb PALOMINO> Date Azeb PALOMINO Cosigner Signature: Date (if applicable) CC: Berta Head DO Work Phone: Start: 05-08-2022 End: 05-08-2022 Procedure Note: See Note; NOTES: [facility] [address] [place], [place] [id number] OFFICE VISIT Date of Service: 05/08/22 MR#: [id number] Acct: [id number] Name: MARTINEZ TESFAYE FRITZ Rep #: [id number] : 1980 Provider: BERNARD Perez Age/Sex: 41/M Location: [facility] Status: Signed Intake Vital Signs 04/12/21 18:55 05/08/22 10:11 Height 5 ft 10 in BP 126/68 H Blood Pressure Location Lt brachial Position Sitting Respiration 14 Pulse 91 Pulse Source Monitor Temp 97.8 F Temp Source Temporal Pulse Oximetry (%) 98 Oxygen Delivery Method room air Intake Visit Reasons: HEAD COLD Chief Complaint: Sinus pressure x3 weeks Allergies No Known Allergies Allergy (Verified 04/12/21 19:28) [facility] Medical History Chronic neck and back pain High blood pressure Kidney stones Surgical History History of back surgery Hx of cholecystectomy Social History Smoking Status: Never smoker HPI HPI Chief Complaint: Sinus pressure x3 weeks Details: MARTINEZ TESFAYE, is a 41 M who presents to the office today for an acute visit to discuss sinus pressure and had cold symptoms for the past 3 weeks. He has a past medical history as listed above. The patient states that over the past 3 weeks he has had sinus congestion and pressure in the frontal and maxillary region. He also notes some postnasal drainage and a nonproductive cough. He denies any obvious sick exposures. He has taken an antihistamine [id number] with only little relief. He does note that this feels similar to sinus infections in the past. He denies any antibiotic allergies. Denies any other aggravating or alleviating factors. Past medical, family, and social history reviewed and not pertinent to the current visit and all other systems reviewed and negative with exception of those listed above. ROS Const Constitutional: Positive for other (Negative x10 systems with exception of those listed above) Exam Const General: cooperative, comfortable and no acute distress Nutritional Appearance: average body habitus and well nourished Orientation: alert and oriented x3 Limitations: mental status not altered HENNH Head: normal to inspection Ears: hearing grossly normal bilaterally and TM's normal bilaterally (Small amount of clear fluid present bilaterally) Nose: external nose normal Face and sinus: sinus tenderness frontal Eyes General: appearance normal, both eyes and all related structures Neck Neck: normal visual inspection Lymphatic: no lymphadenopathy noted Resp Effort Inspection: normal respiratory effort, able to speak in complete sentences, symmetric chest movement, normal respiratory pattern, no audible wheezes and no cough Auscultation: Bilateral: Clear to Auscultation Cardio Palpation: normal PMI Rate: regular rate Heart Sounds: S1 normal, S2 normal, normal S1 and S2, no click, no gallops, no murmurs and no rubs GI Inspection: normal to inspection Auscultation: normal bowel sounds, no hyperactive bowel sounds and no hypoactive bowel sounds Palpation: soft and no hepatosplenomegaly Musc Musculoskeletal: No joint tenderness or decreased range of motion Skin General: no rashes or lesions noted, elasticity normal and turgor normal Lesions: no lesions Rashes: no rashes Neuro General: patient alert, patient awake, patient oriented x3 and CN's II-XI intact bilaterally Speech: speech normal Gait: normal gait Motor: muscle tone normal throughout Extrem General: normal to inspection, normal gait, no edema and no pedal edema Psych Appearance: grossly normal Mental Status: mental status grossly normal Affect: normal affect Attitude: cooperative Thought Process: normal Coding Level of Care Code Off vis,est,level 3 Diagnoses Acute frontal sinusitis J01.10 Assessment and Plan Assessment and Plan (1) Acute frontal sinusitis: Plan: Acute???given the duration of symptoms we will treat empirically with Augmentin therapy which patient has tolerated well before. Instructed him to take a nondrowsy antihistamine and also Flonase. Discussed following up with PCP in the next 3 to 5 days if condition progresses or worsens. Discussed red flag symptoms requiring urgent medical attention. Patient verbalized understanding. This note was generated with [employer] dictation software. It may contain incorrect words, spelling, and punctuation that were not noted in checking the note before signing. I have spent 25 minutes today reviewing labs, records, and history. Time includes coordinating care, interpretation of tests, and counseling the patient/family. This also includes time I spent with the patient for exam, treatment plan, and education as well as documenting clinical information in the electronic health record. Medications: New amoxicillin-pot clavulanate 875-125 mg 1 TAB PO BID 14 tabs 0RF 05/08/22 1051 <Electronically signed by Martinez Perez NP MANAGER [employer]FORMANCE-[employer]> Date Martinez Perez NP MANAGER [employer] Cosigner Signature: Date (if applicable) CC: Berta Head DO Work Phone: Start: 04-12-2021 End: 04-12-2021 Comments: See Note; NOTES: [facility] [address] [place] [address] Emergency Department Summary 04/12/21 MR#: [id number] Acct: [id number] Name: MARTINEZ TESFAYE Rep #: [id number] : 1980 40 From: Cameron Eugene MD PCP: Dr. Berta Head, DO Status:REG ER Location: ED HPI HPI - GI History of Present Illness Chief Complaint: Flank Pain Informant: spouse/S.O. Abdominal Pain/Flank Pain Onset: Days Context: Gradual Onset Timing: Continuous Current Severity: Mild Maximum Severity: Moderate Relieved by: Nothing Nausea/Vomiting/Emesis GI Symptom: Negative for Nausea Diarrhea/Melena/Hematochezi a GI Symptom: Negative for Diarrhea Associated Symptoms Associated Symptoms: Negative for Dysuria, Frequency, Hematuria and Urgency Narrative Narrative: Cholecystectomy. He is never needed any of his stone surgically removed. States on Monday developed left flank pain continued on Monday and again today. Denies nausea or vomiting denies diarrhea or dysuria. No fever.32-year-old male history of kidney stones, hypertension, depression Prior similar symptoms: Yes Recent Illness/Hospitalization: No PFSH PFSH Medical History Chronic neck and back pain High blood pressure Kidney stones Home Medications amlodipine 5 mg tablet 5 mg PO DAILY 08/17/18 [History Last Taken Unknown] pantoprazole 20 mg tablet,delayed release 20 mg PO DAILY 08/17/18 [History Last Taken Unknown] escitalopram oxalate 10 mg PO DAILY 11/03/20 [History Last Taken Unknown] montelukast 10 mg PO DAILY 11/03/20 [History Last Taken Unknown] multivitamin 1 each PO DAILY 11/03/20 [History Last Taken Unknown] rosuvastatin 10 mg PO DAILY 11/03/20 [History Last Taken Unknown] Allergy/AdvReac Type Severity Reaction Status Date / Time No Known Allergies Allergy Verified 04/12/21 19:28 Surgical History History of back surgery Hx of cholecystectomy Social History Smoking Status: Never smoker ROS ROS ED ROS Narrative Flank pain. Review of Systems ROS Unobtainable: Denies due to encephalopathy Constitutional Constitutional ED: Denies chills or fever(s) ENT ENT ED: Denies ear pain or sore throat Cardiovascular Cardiovascular: Denies chest pain Respiratory/Chest Respiratory/Chest: Denies dyspnea Gastrointestinal Gastrointestinal: Denies abdominal pain, constipation, diarrhea, melena, nausea or vomiting Genitourinary Genitourinary ED: Denies dysuria, hematuria or urinary frequency Musculoskeletal Musculoskeletal: Denies arthralgias or myalgias Integumentary Denies rash Neurologic Neurologic: Denies headache(s) Psychiatric Psychiatric: Denies depression Endocrine Endocrinology: Denies polyuria Hematologic/Lymphatic Hematologic/Lymphatic: Denies easy bruising Allergic/Immunologic Allergic/Immunologic ED: Denies urticaria EXAM Physical Exam Narrative Exam Narrative: 5-year-old male no acute distress vital signs stable afebrile. Initial blood pressure elevated 153 119. Exam normal except left flank tenderness. Abdomen soft nontender normal bowel sounds no peritoneal signs. Lungs are clear. Heart regular rate and rhythm. Moving all 4 extremities. No edema. Neurologic exam normal. Const Vital Signs: 04/12/21 18:55 04/12/21 20:45 Temperature 97.2 F L Temperature Source Temporal Pulse Rate 100 80 Respiratory Rate 18 16 Blood Pressure 153/119 H Blood Pressure Mean 130 Pulse Ox 97 100 Oxygen Delivery Method Room Air Positive well nourished and well developed; Negative for obese, cachectic, contractures or unkempt General Appearance ED: well developed and NAD; Negative for unkempt, cachectic, contractures or pallor Nutritional Appearance: Negative for cachectic or obese HEENT Reports moist mucous membranes normocephalic and atraumatic; Negative for trauma or tenderness Eyes PERRL and EOMs intact bilaterally Neck no lymphadenopathy, supple and no JVD General: Negative for tenderness Resp normal respiratory effort and clear to auscultation bilaterally Auscultation: Negative for rales, rhonchi or wheezes Cardio regular rate, regular rhythm, S1 normal heart sound, S2 normal heart sound and no murmurs GI non-tender, non-distended and no masses Auscultation: normoactive bowel sounds Palpation: soft; Negative for tender, guarding or rigid Back/Spine Negative for no CVA tenderness Back/Spine Narrative: Left sided CVA tenderness. General Back: CVA tenderness Extremity full ROM General Extremety ED: Negative for edema or tenderness General Extremity: Negative for edema Neuro CN's II-XII intact bilaterally and moves all extremities Sensorium / Orientation: alert, oriented to person, oriented to place and oriented to time; Negative for orientation impaired, confused, lethargic or stuporous Motor Exam: strength 5/5 throughout Psych mental status grossly normal Appearance: Negative for unkempt Skin no wounds General Skin Exam: Negative for jaundice or pallor Lesions: no lesions Rashes: no rashes MDM MDM MDM Narrative Medical decision making narrative: 40-year-old left flank pain history of stones. Clinically this is a kidney stone. CAT scan labs are pending.He will be treated with IV morphine, Toradol and Zofran for pain and nausea. Repeat exam patient is doing well at 9:34 PM. His pain is resolved. He was moved to [facility] bed because we needed the bed for more acute patient. I discussed all test results with he and his . He will be discharged home. Motrin for pain. Lab Data Attestation: I reviewed the patient's lab results. Lab results narrative: UA negative. No blood or white cells. No nitrites. CBC shows a white count of 13. Hemoglobin of 14. No bands. Electrolytes unremarkable gap of a normal creatinine. Normal glucose of 85. CT flank study showed no acute kidney stone or other abnormality accounting for his pain. Labs: Laboratory Results - last 24 hr 04/12/21 04/12/21 04/12/21 19:00 20:00 20:00 WBC 13.2 H RBC 5.03 Hgb 14.5 Hct 43.7 MCV 86.9 MCH 28.8 MCHC 33.2 RDW Std Deviation 40.3 RDW Coeff of Ricco 12.8 Plt Count 283 MPV 11.1 Immature Gran % (Auto) 0.500 Neut % (Auto) 63.4 Lymph % (Auto) 24.1 Scurry % (Auto) 8.4 Eos % (Auto) 3.1 Baso % (Auto) 0.5 Absolute Neuts (auto) 8.4 H Absolute Lymphs (auto) 3.19 Nucleated RBC % 0 Sodium 136 Potassium 3.9 Chloride 103 Carbon Dioxide 25.0 Anion Gap 8 BUN 9 Creatinine 0.88 Estim Creat Clear Calc 117.52 Est GFR (MDRD) Af Amer 125 Est GFR (MDRD) Non-Af 103 BUN/Creatinine Ratio 10.3 Glucose 85 Calcium 9.3 Urine Color Yellow Urine Clarity Sl. Cloudy Urine pH 6.5 Ur Specific [place] 1.005 Urine Protein Negative Urine Glucose (UA) Normal Urine Ketones Negative Urine Occult Blood Negative Urine Nitrite Negative Urine Bilirubin Negative Urine Urobilinogen Normal Ur Leukocyte Esterase Negative Urine RBC 0 SEEN Urine WBC 0 SEEN Ur Squamous Epith Cells 0-5 SEEN Urine Bacteria 0 SEEN Urine Mucus 0 SEEN Radiography Diagnostic Testing: Radiology Impression Abdomen/Pelvis CT 04/12/21 19:38 IMPRESSION: No acute abnormalities in the abdomen or pelvis. Specifically, no evidence of renal or ureteral stones. Fatty liver. Diverticulosis. Electronically Signed: Tl Ann MD at 20:30 EDT Tel , Service support , Discharge Plan Triage Chief Complaint: Flank Pain ED Provider: Cameron Eugene Dx/Rx/DC Orders Clinical Impression: Acute flank pain Instructions: ED Pain, Acute, Uncertain Cause Prescriptions: No Action amlodipine [Norvasc] 5 mg tablet 5 mg PO DAILY RF: 0 pantoprazole [Protonix] 20 mg tablet,delayed release (DR/EC) 20 mg PO DAILY RF: 0 multivitamin 1 EACH tablet 1 each PO DAILY RF: 0 montelukast 10 MG tablet 10 mg PO DAILY RF: 0 escitalopram oxalate 10 MG tablet 10 mg PO DAILY RF: 0 rosuvastatin 10 MG tablet 10 mg PO DAILY RF: 0 Primary Care Provider: Berta Head Referrals: Berta Head, [Primary Care Provider] - 3-5 Days if not improving Activity Restrictions/Additional Instructions: Your labs, and urinalysis and CAT scan showed no acute abnormality. If you had a kidney stone you have passed it. There is no signs of an acute kidney stone at this time. This could also be musculoskeletal pain. Hot shower and warm bath to relax the muscles. Motrin for pain. Follow-up if not improving or return if a lot worse. Disposition Disposition: Home, Self Care What to do if you have Problems For any increased pain, shortness of breath, bleeding, nausea or vomiting, chest pain, or any unexpected problems, contact your Primary Care Provider. Call [facility] ([phone]) or report to the closest Emergency Room. Call 911 if necessary. 04/12/212135 <Electronically signed by Cameron Eugene MD> Cosigner Signature (if applicable): CC: Dr. Berta Head DO Signed Berta Head DO Work Phone: Start: 04-12-2021 End: 04-12-2021 Comments: See Note; NOTES: [facility] Imaging Services [address] [place] [address] Abdomen/Pelvis without Cont MR#: [id number] Acct: [id number] Name: MARTINEZ TESFAYE Rep #: [id number] : 1980 M 40 From: Tl fenton MD PCP: Dr. Berta Head DO Status: REG ER Study: Abdomen/Pelvis without Cont Date of Exam: 03/25 Exam# [id number] Ordering Dr: Cameron Eugene MD INDICATION: Pain EXAMINATION: CT Abdomen And Pelvis W/O Contrast Injection TECHNIQUE: Helically acquired images were obtained of the abdomen and pelvis without the use of IV contrast. A radiation dose optimization technique was used for this scan. Oral contrast: None. COMPARISON: None FINDINGS: Evaluation of the solid organs and vascular structures is limited without intravenous contrast. Visualized lung bases: Unremarkable Liver: Diffusely hypodense consistent with fatty liver. Gallbladder: Surgically absent. Spleen: Unremarkable Pancreas: Unremarkable Adrenal Glands: Unremarkable Kidneys: Unremarkable Vasculature: Unremarkable GI Tract: Scattered diverticula throughout the colon without evidence of inflammation. Lymphadenopathy: None Peritoneum: No ascites. Bladder: Unremarkable Reproductive organs: Unremarkable Bones/Soft tissues: Postsurgical changes at L4-L5. CT/Abdomen/Pelvis without Cont IMPRESSION: No acute abnormalities in the abdomen or pelvis. Specifically, no evidence of renal or ureteral stones. Fatty liver. Diverticulosis. Electronically Signed: Tl Ann MD at 20:30 EDT Tel , Service support , CC: Dr. Cameron Eugene MD; Dr. Berta Head DO Rn Enterostomal: Signed Berta Head DO Work Phone: Start: 11-03-2020 End: 11-03-2020 Venous Duplex Imag/Limited/Uni Comments: See Note; NOTES: [facility] Imaging Services [address] [place] [address] Venous Duplex Imag/Limited/Uni MR#: [id number] Acct: [id number] Name: MARTINEZ TESFAYE Rep #: [id number] : 1980 M 40 From: Sanjeev Matos DO PCP: Dr. Berta Head DO Status: DEP Study: Venous Duplex Imag/Limited/Uni Date of Exam: 0 11/03/20 Exam# [id number] Ordering Dr: Modesto Garnica MD STUDY: VENOUS DOPPLER ULTRASOUND - RIGHT LOWER EXTREMITY REASON FOR EXAM: Male, 40 years old. MEDIAL RT CALF AREA OF SWELLING AND DISCOLORATION TECHNIQUE: Ultrasound evaluation of the deep vein system to include coronado-scale imaging and compression was performed. Coronado-scale imaging and Doppler sonographic evaluation, including duplex spectral analysis and qualitative color flow sonography, was performed. COMPARISON: None. FINDINGS: Common Femoral Vein: Normal compression, spontaneity and augmentation. Normal color Doppler. Common Femoral Vein/Greater Saphenous Junction: Normal compression. Femoral Proximal: Normal compression. Femoral Middle: Normal compression, spontaneity and augmentation. Normal color Doppler. Femoral Distal: Normal compression. Popliteal Vein: Normal compression, spontaneity and augmentation. Normal color Doppler. Posterior Tibial Vein: Normal compression. Peroneal Vein: Normal compression. US/Venous Duplex Imag/Limited/Uni IMPRESSION: No deep venous thrombosis of the lower extremity. Electronically Signed: Sanjeev Matos DO at 23:49 EDT Tel [phone], Service support , CC: Dr. Modesto Garnica MD; Dr. Berta Head DO Rn Enterostomal: Signed Berta Head Start: 11-03-2020 End: 11-03-2020 Emergency Department Summary Comments: See Note; NOTES: [facility] Medical Records Department [address] [place] [address] Emergency Department Summary 11/03/20 MR#: [id number] Acct: [id number] Name: MARTINEZ TESFAYE Rep #: [id number] : 1980 40 From: Modesto Garnica MD PCP: Dr. Berta Head DO Status:REG ER History of Present Illness Chief Complaint: Edema Informant: Patient, Significant Other Onset: Today Context: - - noticed today, unk details of onset Timing: Continuous Quality of Pain: - - no pain Location: RLE below knee Current Severity: Mild Maximum Severity: Mild Worsened by: nothing Relieved by: nothing Associated Symptoms: Negative for: Parasthesia, Weakness, Loss of Funtion Narrative: Swelling is started today, patient is concerned he may have a blood clot because he had a family member who had one. No history of clotting disorders that he knows of in him or the family. He has had no recent long travel, hospitalization, surgery, or immobilization. He states he has worked 7 12-hour shifts in a row, usually sits at a computer but he has been up frequently on his feet. He denies any chest pain, shortness of breath, palpitations, near syncope, or any other systemic symptoms or illness. Also denies having any leg pain with this and denies any injury. Past Medical History - Allergies and Home Meds Allergies/Adverse Reactions: Allergies No Known Allergies Allergy (Verified 08/26/14 14:28) Primary Care Physician: Berta Head DO [Primary Care Provider] - Past Medical History: None Smoking Status: Never smoker Review of Systems General: Denies: Chills, Fever, Sweats Eyes: Denies: Visual changes - bilaterally, Diplopia ENT: Denies: Rhinorrhea, Sore throat Cardiovascular: Denies: Chest pain, Palpitations Respiratory: Denies: Dyspnea, Cough, Dyspnea on exertion Gastrointestinal: Denies: Abdominal pain, Nausea, Vomiting, Diarrhea, Melena, Hematochezia Genitourinary: Denies: Dysuria, Hematuria, Frequency Musculoskeletal: Reports: Swelling. Denies: Back pain, Extremity Pain Skin: Denies: Rash, Wounds Neurological: Denies: Headache, Weakness, Numbness Physical Exam Vital Signs/Narrative: Vital Signs Temp Pulse Resp BP Pulse Ox 11/03/20 21:49 96.6 F L 94 18 146/94 H 96 Inital Vital Signs reviewed: Yes General: Well nourished, Well developed, - - Well-appearing no distress Head: Normocephalic, Atraumatic Respiratory: No distress Skin: Normal color, No rash - Except for small area of mild ecchymosis medial right calf junction between middle and distal thirds, nontender, no palpable cords, no signs of cellulitis or foreign body/nidus for infection. No lymphangitis. Neurological: Alert, Oriented x3, Cranial nerves II-XII grossly intact, Normal Strength, Normal Sensation, Normal Gait Psychological: Normal affect, Normal Mood Diagnostic/Tx/Re-eval - Medical Decision Making Ultrasound of the right lower extremity was obtained and is negative for DVT and SVT. The ecchymotic-looking area was noted by the hvac operations technician to be varicose veins that do not appear to have any clot within them. Patient was reassured and advised to follow-up. I see nothing that looks infected, there is no tenderness throughout his leg. ED Disposition - Plan for ED Patient: Disposition: Home or Assisted Living Diagnosis: Varicose veins of right lower extremity Instructions: ED Peripheral Edema, Unilateral, ED Varicose Veins Referrals: Berta Head, DO [Primary Care Provider] - As Needed What to do if you have Problems For any increased pain, shortness of breath, bleeding, nausea or vomiting, chest pain, or any unexpected problems, contact your Primary Care Provider. Call [facility] ([phone]) or report to the closest Emergency Room. Call 911 if necessary. 11/03/20 5906 <Electronically signed by Modesto Garnica MD> Date Modesto Garnica MD Cosigner Signature (If Indicated): Date CC: DO Berta Rivera Start: 08-17-2018 End: 08-17-2018 Urgent Care Visit Report Comments: See Note; NOTES: [facility] [address] [place] [address] [address] [place] [address] OFFICE VISIT Date of Service: 08/17/18 MR#: [id number] Acct: [id number] Name: MARTINEZ TESFAYE Rep #: [id number] : 1980 Provider: Srini PALOMINO Age/Sex: 38/M Location: [facility] Status: Signed Intake Vital Signs08/17/18 Height 5 ft 10 in Intake Visit Reasons: strep Allergies No Known Allergies Allergy (Verified 08/26/14 14:28) Medications amlodipine 5 mg tablet 5 mg PO DAILY 08/17/18 [History Confirmed 08/17/18] amoxicillin 500 mg capsule 500 mg PO BID 10 Days #20 cap 08/17/18 [Rx Confirmed 08/17/18] pantoprazole 20 mg tablet,delayed release 20 mg PO DAILY 08/17/18 [History Confirmed 08/17/18] PFSH Medical History Chronic neck and back pain (Chronic) High blood pressure (Chronic) Surgical History History of back surgery (Acute) Hx of cholecystectomy (Acute) Social History Smoking Status: Never smoker HPI HPI Details: MARTINEZ TESFAYE, is a 38 M who presents to the office today for complaint of fever, sore throat and nausea for the past 5 days. Patient states that his throat pain has been consistent and sharp. He reports a T-max of 101.4 which did respond to Tylenol. He has had no vomiting or diarrhea. No shortness of breath, difficulty breathing or chest pain. No other associated symptoms or alleviating/aggravating factors. ROS Const Constitutional: No fever(s), headache(s), anorexia, chills or abnormal sleep pattern ENT ENT: Positive for post nasal drip, sore throat, nasal congestion and nasal discharge; no headache(s) or ear pain Resp Respiratory: No shortness of breath Cardio Cardiology: No irregular heart rhythm or palpitations Gastro GI: No nausea/dyspepsia Neuro Neurology: No headache(s) or behavioral changes Psych Psychiatric: No abnormal sleep pattern, No behavioral changes Exam Const General: cooperative, healthy appearing HENMT Head: normal to inspection Ears: hearing grossly normal bilaterally, TM's normal bilaterally, EAC's normal Nose: external nose normal, nasal discharge clear Mouth: oral mucosae normal Throat: abnormal tonsil bilaterally Resp Effort AND Inspection: normal respiratory effort Auscultation: Bilateral: Clear to Auscultation Cardio Palpation: normal PMI Rate: regular rate Rhythm: regular rhythm Neuro General: CN's II-XI intact bilaterally, alert Psych Appearance: grossly normal Mental Status: mental status grossly normal Results BMSRAPIDSTREPA Office Rapid Strep A Positive Last Edit by Stephani Marte on 08/17/18 07:47 Assessment AND Plan Problems 1. Acute pharyngitis, unspecified etiology J02.9 Status Acute Plan Rapid strep positive in the office today. Amoxicillin as prescribed today. Encouraged to get plenty of rest, drink lots of clear liquids, and use Tylenol or Ibuprofen (unless contraindicated) for fever and comfort. Patient also educated on other symptomatic management techniques. To be seen in 7-10 days if no improvement; sooner if worsening of symptoms. Patient advised of potential red flags and when appropriate to report to the ED. Patient verbalized understanding and agreement with all the above. Orders Orders: Medications New: Discontinued: ondansetron Discontinued Reason: Pt no longer taki4 mg PO Q8H PRN PRN 10 tabs Nausea ng Coding Level of Care Code Off vis,new,level 3 Diagnoses Acute pharyngitis, unspecified etiology J02.9 Pharyngitis/tonsillitis etiology: unspecified etiology 08/17/18 0824 <Electronically signed by Srini PALOMINO> Date Srini PALOMINO Cosigner Signature: Date (if applicable) CC: Berta Head Start: 04-10-2017 End: 04-11-2017 Renal Artery Duplex Comments: See Note; NOTES: [facility] Cardiovascular Services [address] [place] [address] Renal Artery Duplex Ultrasound 04/10/17 0902 MR#: [id number] Acct: [id number] Name: MARTINEZ TESFAYE Rep #: [id number] : 1980 36 From: Clint Wayne MD Attending Dr: Law Tong MD Status: REG CLI Ordering Dr: Law Tong MD Date: 04/10/17 Location: [facility] Sex: M C Admitted: Reason For Study: HTN Right Renal Artery Left Renal Artery Right renal artery ostium 153/66.0 Left renal artery ostium 144/64.8 RSV/EDV. PSV/EDV. Right renal artery proximal Left renal artery proximal PSV/EDV 147/66.6 PSV/EDV. 125/55.0 . Right renal artery mid 99.4/38.3 Left renal artery mid 143/70.9 PSV/EDV. PSV/EDV . Right renal artery distal 83.9/39.2 Left renal artery distal 160/59.9 PSV/EDV. PSV/EDV. Right RAR 1.7. Left RAR 1.8. Right Renal Parenchyma Left Renal Parenchyma Upper Pole Medula 37.4/16.9 Left upper pole medulla 36.1/17.7 PSV/EDV. PSV/EDV . Right upper pole medulla EDR .45 . Left upper pole medulla EDR .49 . Right upper pole medulla R.I. .55 . Left upper pole medulla R.I. .51 . Upper Sam Cortx 22.8/10.9 PSV/EDV. UP Cortex 27.5/12.2 PSV/EDV. Right upper pole cortex EDR .48 . Left upper pole cortex EDR .44 . Right upper pole cortex R.I. .52 . Left upper pole cortex R.I. .56 . Right lower Pole medulla 46.1/21.4 Left lower Pole medulla 40.9/16.5 PSV/EDV . PSV/EDV . Right lower pole medulla EDR .47 . Left lower pole medulla EDR .4 . Right lower pole medulla R.I. .53 . Left lower pole medulla R.I. .6 . Lower Pole Cortex 31.5/10.0 Lower Pole Cortx 29.3/14.7 PSV/EDV. PSV/EDV. Left lower pole cortex EDR .5 . Right lower pole cortex EDR .32 . Left lower pole cortex R.I. .5 . Right lower pole cortex R.I. .68 . Left Renal Hilar Right Renal Hilar Left hilar acceleration time 44 Right Hilar avg 50.2/20.1 PSV/EDV. m/sec. Right hilar acceleration time 51 LT Hilar avg 67.8/29.3 PSV/EDV . m/sec. Left Renal Dimensions Right Renal Dimensions Left kidney size 11.1 cm . Right kidney size 11.7 cm . Left cortical dimension 1.96 cm . Right cortical dimension 1.9 cm . Aorta Proximal abdominal aorta 1.19 x 1.23 cm . Proximal abdominal aorta peak systolic velocity is 91.2 cm/sec . Distal abdominal aorta 1.21 x 1.38 cm . Distal abdominal aorta peak systolic velocity is 102 cm/sec . Interpretation Summary Dimensions of the intra-abdominal aorta appear normal, without evidence of aneurysmal dilatation. Renal artery velocities are bilaterally normal. Acceleration times are normal bilaterally. Renal- aortic ratios are also bilaterally normal. There is no evidence of hemodynamically significant renal artery stenosis on either side. Renovascular resistance appears to be bilaterally normal . The right cortical dimension is increased. The left cortical dimension is increased. Kidneys appear normal in size bilaterally. Ordering Physician: Law Tong Performed By: Johnny Montaño RVT 04/10/17 2149 Date Clint Wayne MD CC: Law Tong MD; Berta Head DO Date Dictated: 04/10/17901 Date Transcribed: 04/10/172148 Rn Enterostomal: Signed Berta Head Work Phone: Start: 07-14-2016 End: 07-14-2016 Stress Test Echo w/ Contrast Comments: See Note; NOTES: [facility] Cardiovascular Services [address] [place] [address] Verdana 4d Stress Test Echo W/Contrast MR#: [id number] Acct: [id number] Name: MARTINEZ TESFAYE Rep #: [id number] : 1980 36 From: Vinicio Laura MD Primary Care: Berta Head DO Status: REG CLI Ordering Dr: Alfredo Kunz Sex: M C Stress Results Protocol: Stress Echocardiogram Maximum Predicted HR: 186 bpm Target HR: 158 bpm% Maximum Pr edicted HR: 88 % DurationHeart Rate Stage (mm:ss) (bpm) BPCom ment Baseline 88 122/80 0.2 cc Definity Stage I- Blaise Protocol 3:00 12 3 134/62 Stage II- Blaise Protocol 3:00 14 1 142/72 Stage III- Blaise Protocol 3:00 16 0 150/68 Stage IV- Blaise Protocol 0:16 16 4 / 0.4 cc Definity Recovery 98 118/70 Stress Duration: 9:16 mm:ss Maximum Stress HR: 164 bpm Baseline Echocardiogram Findings The estimated ejection fraction is 60 %. Stress Echo Wall motion Data Resting WMIntermediate WMStress WM Resting Wall Motion Wall Motion Stress No regional wall motion No regional wall motion abnormalities noted. abnormalities noted. EKG Data The baseline ECG demonstrates normal sinus rhythm with at rate of _ beats per minute. The patient exercised according to the regular Blaise protocol for a total duration of 9:15. The maximum heart rate attained was 164 beats per minute. This was 88% of maximum predicted heart rate. The patient exercised into stage 4 of the Lbaise protocol. During stress, there were no ST or T wave changes noted to suggest ischemia. No clinical angina was noted. Interpretation Summary The study was technically difficult. Contrast injection was performed. The estimated ejection fraction is 60 %. Normal adequate treadmill echocardiogram. Negative for ischemia by ECG and ECHO criteria. No anginal symptoms noted. Rare PVCs noted. Appropriate BP response to exericse. Average exercise capacity for age. Final LVEF=75%. Test terminated due to leg fatigue. Decreased sensitivity de to poor echo windows. Ordering Physician: Alfredo Kunz 07/14/161815 Date Vinicio Laura MD CC: Berta Kunz Date Dictated: 07/14/16 0957 Date Transcribed: 07/14/161815 Rn Enterostomal: Signed Alfredo Kunz Work Phone: Start: 07-06-2016 End: 07-06-2016 Abdomen/Pelvis without Cont Comments: See Note; NOTES: [facility] Imaging Services [address] [place] [address] Verdana 4d Abdomen/Pelvis without Cont MR#: [id number] Acct: [id number] Name: MARTINEZ TESFAYE Denia Rep #: [id number] : 1980 M 36 From: Jimbo Sharma MD PCP: Berta Head DO Status: REG CLI Study: Abdomen/Pelvis without Cont Date of Exam: 07/06/16 Exam# [id number] Ordering Dr: Alferdo Kunz STUDY: CT ABDOMEN AND PELVIS WITHOUT CONTRAST REASON FOR EXAM: Male, 36 years old. Right flank pain. RADIATION DOSAGE (If Supplied By Facility): CTDIvol = ( 20.76 ) mGy, DLP = ( 1063.08 ) mGycm TECHNIQUE: Transaxial images were obtained from the dome of the diaphragm to the symphysis pubis without oral contrast, and without intravenous contrast. Sagittal and coronal images were reconstructed. Individualized dose optimization techniques were used for this CT. COMPARISON: Comparison is made with prior study dated January 24, 2005. FINDINGS: Stable 2 cm x 1.8 cm inhomogeneous hypodensity in the anterior aspect of the dome of the right lobe of the liver. This most likely represents a small hemangioma. The visualized portions of the heart are within normal limits. Normal liver. The gallbladder is not visualized. This most likely secondary to prior Normal spleen. Normal pancreas. Normal bilateral adrenal glands. Normal right kidney. Normal left kidney. Normal visualized stomach. Normal small intestine. There are scattered sigmoid diverticula consistent with diverticulosis. The appendix is visualized and appears normal. Normal abdominal aorta. Normal inferior vena cava. There is borderline retroperitoneal lymphadenopathy with enlarged nodes no greater than 10mm in the short axis diameter. Normal urinary bladder. Normal abdominal wall. The patient is status post laminectomy and transpedicular screw fixation at the L4-L5 level. A prosthetic disc is seen. CT/Abdomen/Pelvis without Cont IMPRESSION: Scattered sigmoid diverticula. Focal area of inhomogeneity in the right lobe of the liver as described. This most likely represents a small hemangioma. This is unchanged as compared to prior examination. Electronically Signed: Jimbo Sharma MD at 9:48 EST Tel [phone], Service support [phone], CC: Berta Kunz Rn Enterostomal: Signed Alfredo Kunz Work Phone: Start: 02-20-2015 End: 02-20-2015 Sinus/Facial Bone Comments: See Note; NOTES: [facility] Imaging Services [address] [place] [address] CAT Scan Report MR#: [id number] Acct: [id number] Name: MARTINEZ TESFAYE Rep #: [id number] : 1980 M 34 From: Brandi Garcia MD PCP: Mary Ann Gibson DO Status: REG CLI Study: Sinus/Facial Bone Date of Exam: 02/20/15 Exam# [id number] Ordering Dr: Mary Ann Gibson DO STUDY: CT MAXILLOFACIAL SINUSES REASON FOR EXAM: Male, 34 years old. Chronic sinusitis. RADIATION DOSAGE (If Supplied By Facility): CTDIvol = ( 43.00 ) mGy, DLP = ( 682.67 ) mGycm TECHNIQUE: The patient was scanned in a multidetector CT scanner. High resolution axial imaging was performed without the administration of intravenous contrast material. Sagittal and coronal images were reconstructed. COMPARISON: None. FINDINGS: FRONTAL SINUSES: Normal aeration, without mucosal inflammatory disease. ETHMOIDAL SINUSES: Normal aeration, without mucosal inflammatory disease. MAXILLARY SINUSES: Normal aeration, without mucosal inflammatory disease. SPHENOIDAL SINUSES: Normal aeration, without mucosal inflammatory disease. There is patency of the bilateral ostiomeatal complexes. Mild deviation of the anterior nasal septum to the right. There is pneumatization of both middle turbinates, more so on the right. The bilateral nasal airways are patent. The visualized brain and orbits show no acute process. IMPRESSION: Normal CT examination of the maxillofacial sinuses. Electronically Signed: Brandi Mccormick MD at 10:21 EDT , Service support [phone], CC: Mary Ann Gibson DO Rn Enterostomal: Signed Mary Ann Gibson Work Phone: Start: 01-27-2015 End: 01-27-2015 Spmtry w/vc expiratory delvis w/wo mxml vol vntj _ Mary Ann Gibson Work Phone: Comment on above: good effort and curve nomral Start: 08-29-2014 End: 09-01-2014 Emergency Department Summary Comments: See Note; NOTES: [facility] Medical Records Department [address] [place] [address] Emergency Department Summary MR#: [id number] Acct: [id number] Name: MARTINEZ TESFAYE Rep #: [id number] : 1980 34 From: Stevan Lopez MD PCP: Mary Ann Gibson DO Status: REG ER DATE OF SERVICE: 08/29/2014 HISTORY OF PRESENT ILLNESS: A 34-year-old male seen on the . ER dictation, labs and ultrasound report were read. He was found to have sludge. He apparently developed pain after leaving. He has had pain since. He has not been able to eat anything other than [employer]. He last ate at 2100 last evening. He was sent by his primary care physician because of increased pain. PAST MEDICAL HISTORY: Unremarkable. PAST SURGICAL HISTORY: Negative. PRIMARY CARE PHYSICIAN: Dr. Mary Ann Gibson Family HISTORY: Multiple family members with cholelithiasis/cholecystiti s. PHYSICAL EXAMINATION: GENERAL: The patient appears uncomfortable. HEENT: Remarkable for tacky oral mucosa. NECK: Trachea midline. LUNGS: Clear to auscultation. HEART: Regular, without murmur, gallop or rub. ABDOMEN: Remarkable for tenderness in the right upper quadrant epigastric area with an equivocal clinical Gutierrez sign. Remainder of exam is unremarkable. Please read written note. EMERGENCY DEPARTMENT COURSE: CBC, liver profile, lipase were obtained and normal. The patient had improvement after 30 mg of Toradol, 4 mg of Zofran and 4 mg of morphine IV push. He was reexamined and reported increased pain. He was administered 1 mg of Dilaudid. He has a marked improvement. Case was discussed with Dr. Hodge and he requested a repeat ultrasound since the only abnormality noted was sludge. IMPRESSION: Right upper quadrant pain with biliary colic. DISPOSITION: Pending. MD Mook Lee C: Mary Ann Mckinney MD T: NTS JOB: [id number] 08/29/14 8038 <Electronically signed by Stevan Lopez MD> Date Stevan Lopez MD CC: Mary Ann Gibson DO; Amador Hodge MD Date Dictated: 08/29/141622 Date Transcribed: 08/29/141622 Rn Enterostomal: Signed Berta Head Start: 08-29-2014 End: 08-29-2014 Gallbladder Comments: See Note; NOTES: [facility] Imaging Services [address] [place] [address] Ultrasound Report MR#: [id number] Acct: [id number] Name: MARTINEZ TESFAYE Rep #: [id number] : 1980 [facility] From: Guerrero Smiley MD PCP: Mary Ann Gibson DO Status: REG ER Study: Gallbladder Date of Exam: 08/29/14 Exam# [id number] Ordering Dr: Stevan Lopez MD STUDY: ABDOMINAL ULTRASOUND - RIGHT UPPER QUADRANT REASON FOR VISIT: Male, 34 years old. Right upper quadrant pain. TECHNIQUE: Ultrasound evaluation of the right upper quadrant was performed with real-time and static coronado-scale imaging. TECHNICAL QUALITY: Limited. Examination limited by bowel gas. COMPARISON: Right upper quadrant ultrasound August 26, 2014. FINDINGS: Liver: The liver measures 17.95 cm. The left lobe of the liver is partially obscured by bowel gas. There is increased echogenicity consistent with fatty infiltration. There is some sparing around the gallbladder fossa. The bile ducts are within normal limits. There is hepatic color flow. The direction of portal flow is hepatopetal. There is no demonstrated mass lesion. Gallbladder: Normal distended gallbladder. The gallbladder wall measures 2.5 mm. There is a negative sonographic Gutierrez's sign. There is no pericholecystic fluid. There is biliary sludge dependent within the gallbladder. Common Bile Duct (C.B.D.): The common bile duct measures 4.0 mm. Pancreas: There is nonvisualization of the pancreas. Right Kidney: Normal size of the right kidney. The right kidney measures 10.7 x 5.4 x 5.2 cm. Normal renal cortex. The right cortex measures 1.3 cm. There is no demonstrated renal mass or cyst. There is no right hydronephrosis. IMPRESSION: 1. Fatty infiltration of the liver and sludge in the gallbladder again noted. 2. No sonographic sign of cholecystitis. No biliary ductal dilatation. 3. The pancreas was obscured. The pancreas appeared normal on prior study, but if there is new clinical suspicion of pancreatic pathology, this would be better imaged with CT. 4. Normal right kidney. Electronically Signed: Obey Smiley MD at 19:17 EST , Service support [phone], CC: Mary Ann Gibson DO; Stevan Lopez MD Rn Enterostomal: Signed Berta Head Start: 08-27-2014 End: 08-27-2014 Emergency Department Summary Comments: See Note; NOTES: [facility] Medical Records Department [address] [place] [address] Emergency Department Summary MR#: [id number] Acct: [id number] Name: MARTINEZ TESFAYE Rep #: [id number] : 1980 34 From: Nish Gavin MD PCP: Mary Ann Gibson DO Status: DEP ER DATE OF SERVICE: 08/26/2014 CHIEF COMPLAINT: Abdominal pain. HISTORY OF PRESENT ILLNESS: A 34-year-old male with history of hypertension, GERD, presents with abdominal pain. The patient states for the past 2 months he will have intermittent abdominal pain. He states it comes every 2-3 weeks and last about a day. He describes a sharp stabbing pain in his right upper quadrant, goes to his right back. He states it is not really associated with food. States the pain started today about 4:00 a.m., woke him from sleep. He does not really know anything that makes it better or worse. Just 1 time he took a Percocet, which did help, but cannot really relate it to eating or drinking. He states he has never had pain like this before. Only prior surgery is back fusion. He denies fevers, chills or other systemic symptoms. PHYSICAL EXAMINATION: VITAL SIGNS: Afebrile. Vitals unremarkable. GENERAL: Well-appearing male in no acute distress. HEENT: Head is normocephalic, atraumatic. Pupils equal, round, reactive. Extraocular muscles are intact. NECK: Supple. HEART: Regular rate and rhythm. LUNGS: Clear. CHEST: Nontender. ABDOMEN: Soft, mildly tender in the right upper quadrant, but no Gutierrez sign. No rebound, no guarding, no hepatomegaly. BACK: Nontender. EXTREMITIES: Show no edema. EMERGENCY DEPARTMENT COURSE: IV was established. The patient was given morphine, Toradol, Zofran, which did relieve his symptoms. He had screening blood work that was done today in Dr. Gibson's office, which all negative including LFTs. I did obtain an ultrasound. Ultrasound showed sludge, but no evidence of acute cholecystitis. I do feel the patient's symptoms are consistent with biliary colic He was instructed on foods to avoid. He will be given analgesics , antiemetics and surgery follow up as needed. He is comfortable with this plan of care. IMPRESSION: Biliary colic. DISPOSITION: Discharged. Nish Gavin MD T: NTS JOB: [id number] 08/27/14 0749 <Electronically signed by Nish Gavin MD> Date Nish Gavin MD CC: Mary Ann Gibson DO Date Dictated: 08/26/14 1604 Date Transcribed: 08/26/141603 Rn Enterostomal: Signed Berta Head Start: 08-26-2014 End: 08-26-2014 Discharge Instruction Comments: See Note; NOTES: [facility] Medical Records Department [address] [place] [address] Discharge Instruction 08/26/14 1605 MR#: [id number] Acct: [id number] Name: MARTINEZ TESFAYE Rep #: [id number] : 1980 34 From: Nish Gavin MD PCP: Mary Ann Gibson DO Status: DEP ER ED Disposition - Plan for ED Patient: Chief Complaint: Abd Pain Instructions: ED GALLSTONES w/ Colic (Confirmed) Prescriptions: Oxycodone HCl/Acetaminophen [Percocet 5/325] 1 - 2 tablet PO Q4H PRN PRN #20 tablet PRN Reason: Pain Ondansetron [Zofran Odt] 4 mg PO Q8H PRN PRN #10 tablet PRN Reason: Nausea Referrals: Wilbert Castillo MD [STAFF PHYSICIAN] - What to do if you have Problems For any increased pain, shortness of breath, bleeding, nausea or vomiting, chest pain, or any unexpected problems, contact your doctor. Call [facility] ) or report to the closest Emergency Room. Call 911 if necessary. 08/26/14 1643 <Electronically signed by Nish Gavin MD> Date Nish Gavin MD Cosigner Signature (If Indicated): Date CC: Mary Ann Gibson DO Berta Head Start: 08-26-2014 End: 08-26-2014 Gallbladder Comments: See Note; NOTES: [facility] Imaging Services [address] [place] [address] Ultrasound Report MR#: [id number] Acct: [id number] Name: MARTINEZ TESFAYE Rep #: [id number] : 1980 [facility] From: Jimbo Sharma MD PCP: Mary Ann Gibson DO Status: REG ER Study: Gallbladder Date of Exam: 08/26/14 Exam# [id number] Ordering Dr: Nish Gavin MD STUDY: ABDOMINAL ULTRASOUND - RIGHT UPPER QUADRANT REASON FOR VISIT: Male, 34 years old. Abdominal pain. TECHNIQUE: Ultrasound evaluation of the right upper quadrant was performed with real-time and static coronado-scale imaging. TECHNICAL QUALITY: Limited. Examination limited by bowel gas. COMPARISON: None. FINDINGS: Liver: The liver measures 18.6 cm. There is increased echogenicity consistent with fatty infiltration. Focal area of fatty sparing in the region of the gallbladder fossa. The bile ducts are within normal limits. There is hepatic color flow. The direction of portal flow is hepatopetal. There is no demonstrated mass lesion. Gallbladder: Normal distended gallbladder. The gallbladder wall measures 2.3 mm. There is a negative sonographic Gutierrez's sign. There is no pericholecystic fluid. There are no gallstones. A small amount of sludge is seen within the gallbladder lumen. Common Bile Duct (C.B.D.): The common bile duct measures 3.5 mm. Pancreas: Normal size of the head, body and tail of the pancreas. There is normal echogenicity of the pancreas. There is no demonstrated pancreatic mass or cyst. Right Kidney: Normal size of the right kidney. The right kidney measures 11.0 cm x 4.9 cm x 5.8 cm. Normal renal cortex. The right cortex measures 1.6 cm. There is no demonstrated renal mass or cyst. There is no right hydronephrosis. IMPRESSION: Mild hepatomegaly with fatty infiltration of the liver. A small amount of sludge is seen in the gallbladder lumen. Electronically Signed: Jimbo Sharma MD at 15:52 EST Tel [phone], Service support [phone], CC: Mary Ann Gibson DO; Nish Gavin MD Rn Enterostomal: Signed Berta Head Cholecystectomy Chaparrita young Comment on above: 2014 Cholecystectomy Eleanor Gravi Comment on above: [address] Pro Comment on above: 2014 Cholecystectomy Eleanor Gravi us Comment on above: 2014 Cholecystectomy Chaparrita young Comment on above: 2014 Cholecystectomy Eleanor Gravi Comment on above: [address] Pro Comment on above: 2014 Cholecystectomy Celina Coffjonnie capone Comment on above: 2014 Cholecystectomy Aarti becerra MD Work Phone: Cholecystectomy Billie Slarb [employer]F Cholecystectomy [address] Galvan [employer] Cholecystectomy Billie Slarb [employer] Cholecystectomy Celina Coffma n [employer]ERING [employer]F Cholecystectomy Freddy Shell [employer] Cholecystectomy Billie Slarb [employer] Cholecystectomy Karoline Mitchell MA History of cholecystectomy Celinacarolina López [employer] History of cholecystectomy Aarti Summers MD Work Phone: History of cholecystectomy Billie Slarb [employer] History of cholecystectomy Berta Head DO Work Phone: History of cholecystectomy Lane Galvan [employer] History of cholecystectomy Billie Slarb [employer] History of cholecystectomy Celina Maribel [employer] History of cholecystectomy Freddy [place] [employer] History of cholecystectomy Billie Slarb [employer] History of cholecystectomy Karoline Mitchell MA lumbar discectomy- 2007 Pelican [place] Messenger lumbar discectomy- 2007 Jasm in Gravius lumbar discectomy- 2007 Morg an Pro lumbar discectomy- 2006 Jasm in Gravius lumbar discectomy- 2007 Pelican y Messenger lumbar discectomy- 2007 Jasm in Gravius lumbar discectomy- 2007 Morg an Pro lumbar discectomy- 2007 Trac y Maribel Celinacarolina Stovallman L PN Aarti Summers MD Work Phone: Billie Slarb LP N Lane Galvan LP N Billie Slarb LP N Celina Maribel L PN Freddy [place] LP N Billie Slarb LP N Karoline Mitchell MA Plan of Treatment Date Care Activity Detail Author Start: 11-21-2033 DTaP/Tdap/Td Vaccine s (2 - Td or Tdap) DTaP/Tdap/Td Vaccines (2 - Td or Tdap) [facility] Start: 2032 Zoster Vaccines (1 of 2) Zoste r Vaccines (1 of 2) [facility] Start: 03-24-2024 COVID-19 Vaccine ( season) COVID-19 Vaccine ( season) [facility] Start: 04-28-2023 Procedure Education [facility] Work Phone: Start: 04-07-2023 Procedure Education [facility]; [facility] Work Phone: Start: 01-05-2023 Procedure Education [facility]; [facility] Work Phone: Start: 01-05-2023 Provider Instruction s for Treatment [facility]; [facility] Work Phone: Start: 01-05-2023 Hemoglobin glycosyla lucina a1c [facility]; [facility] Work Phone: Start: 12-15-2022 Drug screen class list a [facility]; [facility] Work Phone: Start: 12-15-2022 Procedure Education [facility]; [facility] Work Phone: Start: 12-15-2022 Drug screen non tlc devices [facility]; [facility] Work Phone: Start: 12-02-2022 Procedure Education [facility]; [facility] Work Phone: Start: 12-02-2022 Provider Instruction s for Treatment [facility]; [facility] Work Phone: Start: 12-02-2022 25 hydroxy includes fractions if performed [facility]; [facility] Work Phone: Start: 12-02-2022 Antinuclear antibodi es alexa [facility]; [facility] Work Phone: Start: 12-02-2022 Assay of folic acid serum [facility]; [facility] Work Phone: Start: 12-02-2022 Blood count complete automated [facility]; [facility] Work Phone: Start: 12-02-2022 C-reactive protein [facility]; [facility] Work Phone: Start: 12-02-2022 Cyanocobalamin vitam in b-12 [facility]; [facility] Work Phone: Start: 12-02-2022 Rheumatoid factor quantitative [facility]; [facility] Work Phone: Start: 12-02-2022 Sedimentation rate r bc non-automated [facility]; [facility] Work Phone: Start: 12-02-2022 Urnls dip stick/tabl et reagent auto microscopy [facility]; [facility] Work Phone: Start: 12-02-2022 Urine albumin quantitative [facility]; [facility] Work Phone: Start: 12-02-2022 Comprehensive metabo lic panel [facility]; [facility] Work Phone: Start: 12-02-2022 Blood count complete auto&auto difrntl wbc [facility]; [facility] Work Phone: Start: 12-02-2022 Assay of thyroid stimulating hormone tsh [facility]; [facility] Work Phone: Start: 12-02-2022 Lipid panel [facility]; [facility] Work Phone: Start: 06-03-2022 Procedure Education [facility]; [facility] Work Phone: Start: 06-03-2022 Provider Instruction s for Treatment [facility]; [facility] Work Phone: Start: 06-03-2022 Lipid panel [facility]; [facility] Work Phone: Start: 06-03-2022 Assay of thyroid stimulating hormone tsh [facility]; [facility] Work Phone: Start: 06-03-2022 Urnls dip stick/tabl et reagent auto microscopy [facility]; [facility] Work Phone: Start: 06-03-2022 Urine albumin quantitative [facility]; [facility] Work Phone: Start: 06-03-2022 Comprehensive metabo lic panel [facility]; [facility] Work Phone: Start: 06-03-2022 Blood count complete auto&auto difrntl wbc [facility]; [facility] Work Phone: Start: 10-22-2021 Procedure Education [facility]; [facility] Work Phone: Start: 10-22-2021 Provider Instruction s for Treatment [facility]; [facility] Work Phone: Start: 05-13-2021 Hemoglobin glycosyla lucina a1c [facility]; [facility] Work Phone: Start: 05-07-2021 Procedure Education [facility]; [facility] Work Phone: Start: 05-07-2021 Provider Instruction s for Treatment [facility]; [facility] Work Phone: Start: 11-05-2020 Procedure Education [facility]; [facility] Work Phone: Start: 11-05-2020 Provider Instruction s for Treatment [facility]; [facility] Work Phone: Start: 04-02-2020 Hepatic function panel [facility] Work Phone: Start: 04-02-2020 Lipid panel [facility] Work Phone: Start: 03-26-2020 Procedure Education [facility] Work Phone: Start: 03-26-2020 Provider Instruction s for Treatment [facility] Work Phone: Start: 03-26-2020 TSH Qn TSH (80932) [facility] Work Phone: Start: 03-26-2020 Urnls dip stick/tabl et reagent auto microscopy URINALYSIS, W/ MICRO (12756) [facility] Work Phone: Start: 03-26-2020 Urine albumin quantitative MICROALBUMIN: CREATININE RATIO (05902) AND (69524) [facility] Work Phone: Start: 03-26-2020 Comprehensive metabo lic panel METABOLIC PANEL, COMPREHENSIVE (38447) [facility] Work Phone: Start: 03-26-2020 Lipid panel LIPID PANEL (91583) [facility] Work Phone: Start: 03-26-2020 Blood count complete auto&auto difrntl wbc CBC W/AUTO DIFF WBC (36683) [facility] Work Phone: Start: 01-16-2020 Provider Instruction s for Treatment [facility] Work Phone: Start: 10-28-2019 Procedure Education [facility] Work Phone: Start: 10-28-2019 Provider Instruction s for Treatment [facility] Work Phone: Start: 10-25-2019 Procedure Education [facility] Work Phone: Start: 10-16-2019 Procedure Education [facility] Work Phone: Start: 07-15-2019 Procedure Education [facility] Work Phone: Start: 07-15-2019 Provider Instruction s for Treatment [facility] Work Phone: Start: 07-15-2019 Lipoprotein blood qu an numbers & subclasses [facility] Work Phone: Start: 07-15-2019 Assay of thyroid stimulating hormone tsh [facility]; [facility] Work Phone: Start: 07-15-2019 TSH Qn TSH (69518) [facility] Work Phone: Start: 07-15-2019 Urnls dip stick/tabl et reagent auto microscopy [facility] Work Phone: Start: 07-15-2019 Urine albumin quantitative [facility] Work Phone: Start: 07-15-2019 Comprehensive metabo lic panel [facility] Work Phone: Start: 07-15-2019 Blood count complete auto&auto difrntl wbc [facility] Work Phone: Start: 01-07-2019 Procedure Education [facility] Work Phone: Start: 01-07-2019 Provider Instruction s for Treatment [facility] Work Phone: Start: 01-07-2019 Thyrotropin Qn TSH (55923) [facility] Work Phone: Start: 01-07-2019 Urnls dip stick/tabl et reagent auto microscopy URINALYSIS, W/ MICRO (27533) [facility] Work Phone: Start: 01-07-2019 Urine albumin quantitative MICROALBUMIN: CREATININE RATIO (89041) AND (00258) [facility] Work Phone: Start: 01-07-2019 Comprehensive metabo lic panel METABOLIC PANEL, COMPREHENSIVE (44195) [facility] Work Phone: Start: 01-07-2019 Blood count complete auto&auto difrntl wbc CBC W/AUTO DIFF WBC (28422) [facility] Work Phone: Start: 01-07-2019 Lipoprotein blood qu an numbers & subclasses NMR Profile (21371) [facility] Work Phone: Start: 01-07-2019 Protein mass conc NMR Profile (28962 ) [facility] Work Phone: Start: 09-27-2018 [facility] Start: 08-27-2018 TSH Qn TSH (09613) [facility] Work Phone: Start: 08-27-2018 Free T4 [Mass/Vol] T4, FREE (T HYROXINE) (71753) [facility] Work Phone: Start: 08-27-2018 Free T3 [Mass/Vol] T3, FREE (TRIDOTHYRONINE) (12239) [facility] Work Phone: Start: 08-27-2018 Procedure Education Com [facility] Work Phone: Start: 08-27-2018 Provider Instruction s for Treatment [facility] Work Phone: Start: 05-04-2018 Glucose mass conc GLUCOSE (88654) [facility] Work Phone: Start: 05-04-2018 Glucose quantitative blood xcpt reagent strip [facility]; [facility] Work Phone: Start: 05-04-2018 Lipoprotein blood qu an numbers & subclasses [facility]; [facility] Work Phone: Start: 05-04-2018 Protein mass conc LIPOPROTEIN, BLD, BY NMR (97231) [facility] Work Phone: Start: 02-07-2018 Provider Instruction s for Treatment [facility] Work Phone: Start: 08-03-2017 Patient Education Com[facility] Work Phone: Start: 08-03-2017 Procedure Education [facility] Work Phone: Start: 08-03-2017 Provider Instruction s for Treatment [facility] Work Phone: Start: 05-12-2017 Glucose mass conc GLUCOSE (59259) [facility] Work Phone: Start: 05-12-2017 Glucose quantitative blood xcpt reagent strip [facility]; [facility] Work Phone: Start: 02-09-2017 Provider Instruction s for Treatment [facility] Work Phone: Start: 12-22-2016 Provider Instruction s for Treatment [facility] Work Phone: Start: 07-28-2016 Procedure Education [facility] Work Phone: Start: 07-28-2016 Provider Instruction s for Treatment [facility] Work Phone: Start: 07-28-2016 Assay of thyroid stimulating hormone tsh [facility]; [facility] Work Phone: Start: 07-28-2016 Thyrotropin Qn TSH (59589) [facility] Work Phone: Start: 07-28-2016 Urnls dip stick/tabl et reagent auto microscopy [facility] Work Phone: Start: 07-28-2016 Urine albumin quantitative [facility] Work Phone: Start: 07-28-2016 Comprehensive metabo lic panel [facility] Work Phone: Start: 07-28-2016 Lipid panel [facility] Work Phone: Start: 07-28-2016 Blood count complete auto&auto difrntl wbc [facility] Work Phone: Start: 07-05-2016 Procedure Education [facility] Work Phone: Start: 07-05-2016 Provider Instruction s for Treatment [facility] Work Phone: Start: 11-27-2015 Procedure Education [facility] Work Phone: Start: 06-02-2015 Hepatic function panel [facility] Work Phone: Start: 05-29-2015 Procedure Education [facility] Work Phone: Start: 01-27-2015 Procedure Education Com [facility] Work Phone: Start: 10-07-2014 Procedure Education [facility] Work Phone: Start: 10-07-2014 Lipid panel [facility] Work Phone: Start: 10-07-2014 Urnls dip stick/tabl et reagent auto microscopy [facility] Work Phone: Start: 10-07-2014 Comprehensive metabo lic panel [facility] Work Phone: Start: 08-29-2014 Patient Education Compr [facility] Work Phone: Start: 08-29-2014 Procedure Education [facility] Work Phone: Start: 08-26-2014 Sedimentation rate r bc non-automated [facility] Work Phone: Start: 08-26-2014 C-reactive protein Comp [facility]; [facility] Work Phone: Start: 08-26-2014 CRP mass conc C-REACTIVE PRO TEIN (96208) [facility] Work Phone: Start: 08-26-2014 Amylase enzyme act/vol Amylase (8215 0) [facility] Work Phone: Comment on above: stat Start: 08-26-2014 Assay of amylase [facility]pre [facility] Work Phone: Comment on above: stat Start: 08-26-2014 Blood count complete auto&auto difrntl wbc [facility] Work Phone: Comment on above: stat Start: 08-26-2014 Assay of lipase [facility]preh [facility] Work Phone: Start: 08-26-2014 Comprehensive metabo lic panel [facility] Work Phone: Start: 08-26-2014 Culture bacterial quanttative colony count urine [facility] Work Phone: Start: 09-25-2013 Provider Instruction s for Treatment [facility] Work Phone: Start: 09-25-2013 Iaadiadoo streptococ cus group a [facility]; [facility] Work Phone: Start: 09-25-2013 S. pyogenes Ag IA Ql (Unsp spec) Rapid Strep Test, Office (30146) [facility] Work Phone: Start: 04-27-2012 Patient Education [facility] Work Phone: Start: 04-04-2012 Provider Instruction s for Treatment [facility] Work Phone: Start: 01-12-2012 Antibody borrelia burgdorferi lyme disease [facility] Work Phone: Start: 11-18-2011 Lipid panel [facility] Work Phone: Start: 11-18-2011 Blood count manual c ell count each [facility] Work Phone: Start: 11-18-2011 Comprehensive metabo lic panel [facility] Work Phone: Start: 07-15-2011 Comprehensive metabo lic panel [facility] Work Phone: Start: 07-15-2011 Lipid panel Com[facility] Work Phone: Start: 05-11-2011 Provider Instruction s for Treatment [facility] Work Phone: Start: 03-30-2011 Provider Instruction s for Treatment [facility] Work Phone: Start: 03-18-2011 Lipid panel Com[facility] Work Phone: Start: 03-18-2011 Comprehensive metabo lic panel [facility] Work Phone: Start: 12-01-2010 Comprehensive metabo lic panel [facility] Work Phone: Start: 12-01-2010 Lipid panel [facility] Work Phone: Start: 06-16-2010 Blood count manual c ell count each [facility] Work Phone: Start: 06-16-2010 Comprehensive metabo lic panel [facility] Work Phone: Start: 06-16-2010 Lipid panel [facility] Work Phone: Start: 11-13-2009 Provider Instruction s for Treatment [facility] Work Phone: Start: 11-13-2009 Comprehensive metabo lic panel [facility] Work Phone: Start: 11-13-2009 Lipid panel Comprehens [facility] Work Phone: Start: 06-17-2009 Patient Education Compr [facility] Work Phone: Start: 06-17-2009 Provider Instruction s for Treatment [facility] Work Phone: Start: 06-17-2009 Cul bact xcpt urine blood/stool aerobic isol [facility] Work Phone: Start: 06-17-2009 Iaadiadoo streptococ cus group a [facility]; [facility] Work Phone: Start: 06-17-2009 S. pyogenes Ag IA Ql (Unsp spec) Rapid Strep Test, Office (80943) [facility] Work Phone: Start: 04-16-2009 Comprehensive metabo lic panel [facility] Work Phone: Start: 04-16-2009 Lipid panel Com[facility] Work Phone: Start: 03-13-2009 Assay of thyroid stimulating hormone tsh [facility]; [facility] Work Phone: Start: 03-13-2009 Thyrotropin Qn TSH (92835) [facility] Work Phone: Start: 03-13-2009 Blood count manual c ell count each [facility] Work Phone: Start: 03-13-2009 Comprehensive metabo lic panel [facility] Work Phone: Start: 03-13-2009 Lipid panel [facility] Work Phone: Start: 03-13-2009 Hepatic function panel [facility] Work Phone: Start: 12-10-2008 Provider Instruction s for Treatment [facility] Work Phone: Start: 12-10-2008 Hepatic function panel [facility] Work Phone: Start: 12-10-2008 Hepatitis b core antibody hbcab total [facility] Work Phone: Start: 10-24-2008 Cobalamin (Vitamin B 12) mass conc VITAMIN B-12 (CYANOCOBALAMIN) (32938) [facility] Work Phone: Start: 10-24-2008 Cyanocobalamin vitam in b-12 [facility]; [facility] Work Phone: Start: 10-24-2008 Lipid panel Com[facility] Work Phone: Start: 10-24-2008 Assay of thyroid stimulating hormone tsh [facility]; [facility] Work Phone: Start: 10-24-2008 Thyrotropin Qn TSH (48675) [facility] Work Phone: Start: 10-24-2008 Comprehensive metabo lic panel [facility] Work Phone: Start: 10-24-2008 Blood count manual c ell count each [facility] Work Phone: Start: 12-28-2007 Provider Instruction s for Treatment [facility] Work Phone: Start: 08-21-2007 Provider Instruction s for Treatment [facility] Work Phone: Start: 03-23-2007 Provider Instruction s for Treatment [facility] Work Phone: Start: 03-23-2007 Lipid panel Com[facility] Work Phone: Start: 03-23-2007 Urnls dip stick/tabl et rgnt auto w/o microscopy [facility] Work Phone: Start: 03-23-2007 Assay of thyroid stimulating hormone tsh [facility]; [facility] Work Phone: Start: 03-23-2007 Thyrotropin Qn TSH (86378) [facility] Work Phone: Start: 03-23-2007 Comprehensive metabo lic panel [facility] Work Phone: Start: 03-23-2007 Blood count manual c ell count each [facility] Work Phone: Start: 2001 Hepatitis B Vaccines (1 of 3 - 19+ 3-dose series) Hepatitis B Vaccines (1 of 3 - 19+ 3-dose series) [facility] Start: 2000 Hepatitis C screening Hepatitis C Sc reening [facility] Start: 1995 Varicella vaccination Varicell a Vaccines (1 of 2 - 13+ 2-dose series) [facility] Start: 1983 MMR Vaccines (1 of 1 - Standard series) MMR Vaccines (1 of 1 - Standard series) [facility] Start: 1982 HIV screening HIV Screening [facility] Start: 1982 Lip[address] Panel [facility] Start: 1982 Yearly Adult Physical Yearly Adult P [facility] Work Phone: [facility] Work Phone: [facility] Work Phone: [facility] Work Phone: [facility] Work Phone: [facility] Work Phone[facility] Work Phone[facility] Work Phone: [facility] Work Phone: [facility] Work Phone: [facility] Work Phone: [facility] Work Phone: [facility] Work Phone: [facility] Work Phone: [facility] Work Phone: [facility] Work Phone: [facility] Work Phone: [facility] Work Phone: [facility] Work Phone: [facility] Work Phone: [facility] Work Phone: [facility] Work Phone: [facility] Work Phone: [facility] Phone: [facility] Work Phone: [facility] Work Phone: [facility] Work Phone: [facility] Work Phone: [facility] Work Phone: [facility] Work Phone: [facility] Work Phone: [facility] Work Phone: [facility] Work Phone: [facility] Work Phone: [facility] Work Phone: [facility] Work Phone: Immunizations Immunization Date Immunization Notes Care Provider [facility] 11-22-2023 tetanus toxoid, reduced diphtheria toxoid, and acellular pertussis vaccine, adsorbed Dr. Berta Head DO Work Phone: [facility] 10-27-2020 COVID-19 (Moderna) Berta Delvalle [facility]; [facility] Work Phone: 05-14-2014 Influenza virus vaccine [facility] Payers Date Payer Category Payer Self-pay [id number] 2023 Managed Care (Private) [facility] [id number] 2023 Private Health Insurance [id number] 2021 Private Health Insurance [id number] 2014 Unknown [id number] 2014 Unknown [id number] 2007 Unknown [id number] 1982 Unknown [id number] 1982 Unknown [id number] 1982 Unknown [id number] Private Health Insurance [employer] [id number] Unknown Unknown [id number] Unknown [id number] Unknown [id number] Unknown [id number] Unknown [id number] Social History Date Type Detail Facility Alcohol Use Former smoker [facility] Work Phone: Comment on above: Occasional alcohol u se occ. Full-time, [employer] , Lives with spouse 03/18/11, 03/30/11 Tobacco use: Former smoker. [facility] Work Phone: Former smoker. [facility]; [facility] Work Phone: Start: 06-05-2022 Tobacco smoking stat [facility] Unknown if ever smoked [facility] Start: 11-03-2020 Non-smoker [facility] Start: 1980 Sex Assigned At Male [facility] Start: 1980 Sex assigned at Not on file [facility] Work Phone: Gender identity Not on file [facility] Work Phone: Start: 09-14-2024 End: 12-18-2024 Exposure to SARS-CoV-2 (event) Not sure [facility] Start: 06-05-2022 Tobacco smoking stat [facility] Never smoked tobacco (finding) [facility] Functional Status Date Assessment Result Facility 01-07-2019 LP-IR Score 66 [facility] Work Phone: Comment on above: INSULIN RESISTANCE Roger ESTEBAN <--Insulin Sensitive Insulin Resistant--> Percentile in Reference PopulationInsulin Resistance ScoreLP-IR Score Low 25th 50th 75th High <27 27 45 63 >63LP-IR Score is inaccurate if patient is non-fasting. .The LP-IR score is a laboratory developed index that has beenassociated with insulin resistance and diabetes risk and should beused as one component of a physician's clinical assessment. TheLP-IR score listed above has not been cleared by the [place] Food andDrug Administration. PATIENT WAS FASTINGP ERFORMED BY: BN [facility] [address] [id number] BY: CB [facility] [id number] [facility] [id number] 02-07-2018 LP-IR Score 62 [facility] Work Phone: Comment on above: INSULIN RESISTANCE Roger ESTEBAN <--Insulin Sensitive Insulin Resistant--> Percentile in Reference PopulationInsulin Resistance ScoreLP-IR Score Low 25th 50th 75th High <27 27 45 63 >63LP-IR Score is inaccurate if patient is non-fasting. .The LP-IR score is a laboratory developed index that has beenassociated with insulin resistance and diabetes risk and should beused as one component of a physician's clinical assessment. TheLP-IR score listed above has not been cleared by the [place] Food andDrug Administration. PATIENT WAS FASTINGP ERFORMED BY: [place] [id number] [facility] [id number] BY: [id number] [facility] [id number] Information: [id number] Clinical Notes Note Date & Type Note Facility Evaluation note No assessment information availa [facility] Work Phone: Evaluation note Diagnosis Essential (primary) hypertension Unspecified essential hypertension documented in this encounter [facility] Work Phone: Evaluation note* Diagnosis Abnormal result of other cardiovascular function study documented in this encounter [facility] Work Phone: Instructions* Name Dates Details Patient Instructions Indication:BMI 36.0-36.9,adult Start:05-Nov-2020 Instruction Type:Provider Instructions for Treatment How to Access Health Informa tion Online using Patient Portal and [employer] Apps Indication:BMI 36.0-36.9,adult Start:05-Nov-2020 Instruction Type:Patient Education How to access health informa tion online Indication:BMI 36.0-36.9,adult Start:26-Mar-2020 Instruction Type:Patient Education How to access health informa tion online - Detail Indication:BMI 36.0-36.9,adult Start:26-Mar-2020 Instruction Type:Patient Education Patient Instructions Indication:BMI 36.0-36.9,adult Start:26-Mar-2020 Instruction Type:Provider Instructions for Treatment How to access health informa tion online Indication:Compliance poor (Renamed from Poor compliance) Start:16-Jan-2020 Instruction Type:Patient Education How to access health informa tion online - Detail Indication:Compliance poor (Renamed from Poor compliance) Start:16-Jan-2020 Instruction Type:Patient Education How to access health informa tion online Indication:BMI 37.0-37.9, adult Start:28-Oct-2019 Instruction Type:Patient Education How to access health informa tion online - Detail Indication:BMI 37.0-37.9, adult Start:28-Oct-2019 Instruction Type:Patient Education Patient Instructions Indication:BMI 37.0-37.9, adult Start:28-Oct-2019 Instruction Type:Provider Instructions for Treatment How to access health informa tion online Indication:Pharyngitis, acute Start:25-Oct-2019 Instruction Type:Patient Education How to access health informa tion online - Detail Indication:Pharyngitis, acute Start:25-Oct-2019 Instruction Type:Patient Education Patient Instructions Indication:Pharyngitis, acute Start:25-Oct-2019 Instruction Type:Provider Instructions for Treatment How to access health informa tion online Indication:BMI 36.0-36.9,adult Start:16-Oct-2019 Instruction Type:Patient Education How to access health informa tion online - Detail Indication:BMI 36.0-36.9,adult Start:16-Oct-2019 Instruction Type:Patient Education Patient Instructions Indication:BMI 36.0-36.9,adult Start:16-Oct-2019 Instruction Type:Provider Instructions for Treatment How to access health informa tion online Indication:BMI 36.0-36.9,adult Start:15-Jul-2019 Instruction Type:Patient Education How to access health informa tion online - Detail Indication:BMI 36.0-36.9,adult Start:15-Jul-2019 Instruction Type:Patient Education Patient Instructions Indication:BMI 36.0-36.9,adult Start:15-Jul-2019 Instruction Type:Provider Instructions for Treatment How to access health informa tion online Indication:Nonsmoker Start:23-May-2019 Instruction Type:Patient Education How to access health informa tion online - Detail Indication:Nonsmoker Start:23-May-2019 Instruction Type:Patient Education Patient Instructions Indication:Nonsmoker Start:23-May-2019 Instruction Type:Provider Instructions for Treatment How to access health informa tion online Indication:Nonsmoker Start:07-Jan-2019 Instruction Type:Patient Education How to access health informa tion online - Detail Indication:Nonsmoker Start:07-Jan-2019 Instruction Type:Patient Education How to access health informa tion online - Detail Indication:Nonsmoker Start:07-Jan-2019 Instruction Type:Patient Education Patient Instructions Indication:Nonsmoker Start:07-Jan-2019 Instruction Type:Provider Instructions for Treatment How to access health informa tion online Indication:Nonsmoker Start:27-Sep-2018 Instruction Type:Patient Education How to access health informa tion online - Detail Indication:Nonsmoker Start:27-Sep-2018 Instruction Type:Patient Education Patient Instructions Indication:Nonsmoker Start:27-Sep-2018 Instruction Type:Provider Instructions for Treatment How to access health informa tion online Indication:Nonsmoker Start:27-Aug-2018 Instruction Type:Patient Education How to access health informa tion online - Detail Indication:Nonsmoker Start:27-Aug-2018 Instruction Type:Patient Education Patient Instructions Indication:Nonsmoker Start:27-Aug-2018 Instruction Type:Provider Instructions for Treatment How to access health informa tion online Indication:Nonsmoker Start:04-May-2018 Instruction Type:Patient Education How to access health informa tion online - Detail Indication:Nonsmoker Start:04-May-2018 Instruction Type:Patient Education Patient Instructions Indication:Nonsmoker Start:04-May-2018 Instruction Type:Provider Instructions for Treatment How to access health informa tion online Indication:Body mass index 35.0-35.9, adult Start:07-Feb-2018 Instruction Type:Patient Education How to access health informa tion online - Detail Indication:Body mass index 35.0-35.9, adult Start:07-Feb-2018 Instruction Type:Patient Education Patient Instructions Indication:Body mass index 35.0-35.9, adult Start:07-Feb-2018 Instruction Type:Provider Instructions for Treatment How to access health informa tion online Indication:Nonsmoker Start:03-Aug-2017 Instruction Type:Patient Education How to access health informa tion online - Detail Indication:Nonsmoker Start:03-Aug-2017 Instruction Type:Patient Education Patient Instructions Indication:Influenza Start:03-Aug-2017 Instruction Type:Provider Instructions for Treatment How to access health informa tion online Indication:Nonsmoker Start:12-May-2017 Instruction Type:Patient Education How to access health informa tion online - Detail Indication:Nonsmoker Start:12-May-2017 Instruction Type:Patient Education Patient Instructions Indication:Nonsmoker Start:12-May-2017 Instruction Type:Provider Instructions for Treatment How to access health informa tion online Indication:Nonsmoker Start:09-Feb-2017 Instruction Type:Patient Education How to access health informa tion online - Detail Indication:Nonsmoker Start:09-Feb-2017 Instruction Type:Patient Education Patient Instructions Indication:Nonsmoker Start:09-Feb-2017 Instruction Type:Provider Instructions for Treatment How to access health informa tion online Indication:Nonsmoker Start:22-Dec-2016 Instruction Type:Patient Education How to access health informa tion online - Detail Indication:Nonsmoker Start:22-Dec-2016 Instruction Type:Patient Education Patient Instructions Indication:Nonsmoker Start:22-Dec-2016 Instruction Type:Provider Instructions for Treatment Patient Instructions Indication:Benign essential hypertension Start:28-Jul-2016 Instruction Type:Provider Instructions for Treatment How to access health informa tion online Indication:Benign essential hypertension Start:28-Jul-2016 Instruction Type:Patient Education How to access health informa tion online - Detail Indication:Benign essential hypertension Start:28-Jul-2016 Instruction Type:Patient Education How to access health informa tion online Indication:Nonsmoker Start:05-Jul-2016 Instruction Type:Patient Education How to access health informa tion online - Detail Indication:Nonsmoker Start:05-Jul-2016 Instruction Type:Patient Education Patient Instructions Indication:Nonsmoker Start:05-Jul-2016 Instruction Type:Provider Instructions for Treatment How to access health informa tion online Indication:Annual physical exam Start:25-Feb-2016 Instruction Type:Patient Education How to access health informa tion online - Detail Indication:Annual physical exam Start:25-Feb-2016 Instruction Type:Patient Education Patient Instructions Indication:Annual physical exam Start:25-Feb-2016 Instruction Type:Provider Instructions for Treatment How to access health informa tion online Indication:Mixed hyperlipidemia Start:27-Nov-2015 Instruction Type:Patient Education How to access health informa tion online - Detail Indication:Mixed hyperlipidemia Start:27-Nov-2015 Instruction Type:Patient Education Patient Instructions Indication:Mixed hyperlipidemia Start:27-Nov-2015 Instruction Type:Provider Instructions for Treatment How to access health informa tion online Indication:Gastroesophageal reflux disease without esophagitis Start:29-May-2015 Instruction Type:Patient Education How to access health informa tion online - Detail Indication:Gastroesophageal reflux disease without esophagitis Start:29-May-2015 Instruction Type:Patient Education Patient Instructions Indication:Gastroesophageal reflux disease without esophagitis Start:29-May-2015 Instruction Type:Provider Instructions for Treatment Patient Instructions Indication:Other allergic rhinitis Start:27-Jan-2015 Instruction Type:Provider Instructions for Treatment Patient Instructions Indication:Benign essential hypertension Start:07-Oct-2014 Instruction Type:Provider Instructions for Treatment How to access health informa tion online Indication:Abdominal pain, acute, right upper quadrant Start:29-Aug-2014 Instruction Type:Patient Education How to access health informa tion online - Detail Indication:Abdominal pain, acute, right upper quadrant Start:29-Aug-2014 Instruction Type:Patient Education Patient Instructions Indication:Abdominal pain, acute, right upper quadrant Start:29-Aug-2014 Instruction Type:Provider Instructions for Treatment Patient Instructions Indication:Abdominal pain, acute, right upper quadrant Start:26-Aug-2014 Instruction Type:Provider Instructions for Treatment Patient Instructions Indication:Knee pain Start:24-Dec-2013 Instruction Type:Provider Instructions for Treatment Patient Instructions Indication:Benign essential hypertension Start:22-May-2013 Instruction Type:Provider Instructions for Treatment Patient Instructions Indication:Back pain Start:26-Apr-2013 Instruction Type:Provider Instructions for Treatment Patient Instructions Indication:Insect bite Start:05-Mar-2013 Instruction Type:Provider Instructions for Treatment Patient Instructions Indication:Gastroesophageal reflux disease without esophagitis Start:27-Apr-2012 Instruction Type:Provider Instructions for Treatment [facility]; [facility] Work Phone: Instructions* Name Dates Details Patient Instructions Indication:Nonsmoker Start:07-May-2021 Instruction Type:Provider Instructions for Treatment How to Access Health Informa tion Online using Patient Portal and [employer] Apps Indication:Nonsmoker Start:07-May-2021 Instruction Type:Patient Education Patient Instructions Indication:BMI 36.0-36.9,adult Start:05-Nov-2020 Instruction Type:Provider Instructions for Treatment How to Access Health Informa tion Online using Patient Portal and [employer] Apps Indication:BMI 36.0-36.9,adult Start:05-Nov-2020 Instruction Type:Patient Education How to access health informa tion online Indication:BMI 36.0-36.9,adult Start:26-Mar-2020 Instruction Type:Patient Education How to access health informa tion online - Detail Indication:BMI 36.0-36.9,adult Start:26-Mar-2020 Instruction Type:Patient Education Patient Instructions Indication:BMI 36.0-36.9,adult Start:26-Mar-2020 Instruction Type:Provider Instructions for Treatment How to access health informa tion online Indication:Compliance poor (Renamed from Poor compliance) Start:16-Jan-2020 Instruction Type:Patient Education How to access health informa tion online - Detail Indication:Compliance poor (Renamed from Poor compliance) Start:16-Jan-2020 Instruction Type:Patient Education How to access health informa tion online Indication:BMI 37.0-37.9, adult Start:28-Oct-2019 Instruction Type:Patient Education How to access health informa tion online - Detail Indication:BMI 37.0-37.9, adult Start:28-Oct-2019 Instruction Type:Patient Education Patient Instructions Indication:BMI 37.0-37.9, adult Start:28-Oct-2019 Instruction Type:Provider Instructions for Treatment How to access health informa tion online Indication:Pharyngitis, acute Start:25-Oct-2019 Instruction Type:Patient Education How to access health informa tion online - Detail Indication:Pharyngitis, acute Start:25-Oct-2019 Instruction Type:Patient Education Patient Instructions Indication:Pharyngitis, acute Start:25-Oct-2019 Instruction Type:Provider Instructions for Treatment How to access health informa tion online Indication:BMI 36.0-36.9,adult Start:16-Oct-2019 Instruction Type:Patient Education How to access health informa tion online - Detail Indication:BMI 36.0-36.9,adult Start:16-Oct-2019 Instruction Type:Patient Education Patient Instructions Indication:BMI 36.0-36.9,adult Start:16-Oct-2019 Instruction Type:Provider Instructions for Treatment How to access health informa tion online Indication:BMI 36.0-36.9,adult Start:15-Jul-2019 Instruction Type:Patient Education How to access health informa tion online - Detail Indication:BMI 36.0-36.9,adult Start:15-Jul-2019 Instruction Type:Patient Education Patient Instructions Indication:BMI 36.0-36.9,adult Start:15-Jul-2019 Instruction Type:Provider Instructions for Treatment How to access health informa tion online Indication:Nonsmoker Start:23-May-2019 Instruction Type:Patient Education How to access health informa tion online - Detail Indication:Nonsmoker Start:23-May-2019 Instruction Type:Patient Education Patient Instructions Indication:Nonsmoker Start:23-May-2019 Instruction Type:Provider Instructions for Treatment How to access health informa tion online Indication:Nonsmoker Start:07-Jan-2019 Instruction Type:Patient Education How to access health informa tion online - Detail Indication:Nonsmoker Start:07-Jan-2019 Instruction Type:Patient Education How to access health informa tion online - Detail Indication:Nonsmoker Start:07-Jan-2019 Instruction Type:Patient Education Patient Instructions Indication:Nonsmoker Start:07-Jan-2019 Instruction Type:Provider Instructions for Treatment How to access health informa tion online Indication:Nonsmoker Start:27-Sep-2018 Instruction Type:Patient Education How to access health informa tion online - Detail Indication:Nonsmoker Start:27-Sep-2018 Instruction Type:Patient Education Patient Instructions Indication:Nonsmoker Start:27-Sep-2018 Instruction Type:Provider Instructions for Treatment How to access health informa tion online Indication:Nonsmoker Start:27-Aug-2018 Instruction Type:Patient Education How to access health informa tion online - Detail Indication:Nonsmoker Start:27-Aug-2018 Instruction Type:Patient Education Patient Instructions Indication:Nonsmoker Start:27-Aug-2018 Instruction Type:Provider Instructions for Treatment How to access health informa tion online Indication:Nonsmoker Start:04-May-2018 Instruction Type:Patient Education How to access health informa tion online - Detail Indication:Nonsmoker Start:04-May-2018 Instruction Type:Patient Education Patient Instructions Indication:Nonsmoker Start:04-May-2018 Instruction Type:Provider Instructions for Treatment How to access health informa tion online Indication:Body mass index 35.0-35.9, adult Start:07-Feb-2018 Instruction Type:Patient Education How to access health informa tion online - Detail Indication:Body mass index 35.0-35.9, adult Start:07-Feb-2018 Instruction Type:Patient Education Patient Instructions Indication:Body mass index 35.0-35.9, adult Start:07-Feb-2018 Instruction Type:Provider Instructions for Treatment How to access health informa tion online Indication:Nonsmoker Start:03-Aug-2017 Instruction Type:Patient Education How to access health informa tion online - Detail Indication:Nonsmoker Start:03-Aug-2017 Instruction Type:Patient Education Patient Instructions Indication:Influenza Start:03-Aug-2017 Instruction Type:Provider Instructions for Treatment How to access health informa tion online Indication:Nonsmoker Start:12-May-2017 Instruction Type:Patient Education How to access health informa tion online - Detail Indication:Nonsmoker Start:12-May-2017 Instruction Type:Patient Education Patient Instructions Indication:Nonsmoker Start:12-May-2017 Instruction Type:Provider Instructions for Treatment How to access health informa tion online Indication:Nonsmoker Start:09-Feb-2017 Instruction Type:Patient Education How to access health informa tion online - Detail Indication:Nonsmoker Start:09-Feb-2017 Instruction Type:Patient Education Patient Instructions Indication:Nonsmoker Start:09-Feb-2017 Instruction Type:Provider Instructions for Treatment How to access health informa tion online Indication:Nonsmoker Start:22-Dec-2016 Instruction Type:Patient Education How to access health informa tion online - Detail Indication:Nonsmoker Start:22-Dec-2016 Instruction Type:Patient Education Patient Instructions Indication:Nonsmoker Start:22-Dec-2016 Instruction Type:Provider Instructions for Treatment Patient Instructions Indication:Benign essential hypertension Start:28-Jul-2016 Instruction Type:Provider Instructions for Treatment How to access health informa tion online Indication:Benign essential hypertension Start:28-Jul-2016 Instruction Type:Patient Education How to access health informa tion online - Detail Indication:Benign essential hypertension Start:28-Jul-2016 Instruction Type:Patient Education How to access health informa tion online Indication:Nonsmoker Start:05-Jul-2016 Instruction Type:Patient Education How to access health informa tion online - Detail Indication:Nonsmoker Start:05-Jul-2016 Instruction Type:Patient Education Patient Instructions Indication:Nonsmoker Start:05-Jul-2016 Instruction Type:Provider Instructions for Treatment How to access health informa tion online Indication:Annual physical exam Start:25-Feb-2016 Instruction Type:Patient Education How to access health informa tion online - Detail Indication:Annual physical exam Start:25-Feb-2016 Instruction Type:Patient Education Patient Instructions Indication:Annual physical exam Start:25-Feb-2016 Instruction Type:Provider Instructions for Treatment How to access health informa tion online Indication:Mixed hyperlipidemia Start:27-Nov-2015 Instruction Type:Patient Education How to access health informa tion online - Detail Indication:Mixed hyperlipidemia Start:27-Nov-2015 Instruction Type:Patient Education Patient Instructions Indication:Mixed hyperlipidemia Start:27-Nov-2015 Instruction Type:Provider Instructions for Treatment How to access health informa tion online Indication:Gastroesophageal reflux disease without esophagitis Start:29-May-2015 Instruction Type:Patient Education How to access health informa tion online - Detail Indication:Gastroesophageal reflux disease without esophagitis Start:29-May-2015 Instruction Type:Patient Education Patient Instructions Indication:Gastroesophageal reflux disease without esophagitis Start:29-May-2015 Instruction Type:Provider Instructions for Treatment Patient Instructions Indication:Other allergic rhinitis Start:27-Jan-2015 Instruction Type:Provider Instructions for Treatment Patient Instructions Indication:Benign essential hypertension Start:07-Oct-2014 Instruction Type:Provider Instructions for Treatment How to access health informa tion online Indication:Abdominal pain, acute, right upper quadrant Start:29-Aug-2014 Instruction Type:Patient Education How to access health informa tion online - Detail Indication:Abdominal pain, acute, right upper quadrant Start:29-Aug-2014 Instruction Type:Patient Education Patient Instructions Indication:Abdominal pain, acute, right upper quadrant Start:29-Aug-2014 Instruction Type:Provider Instructions for Treatment Patient Instructions Indication:Abdominal pain, acute, right upper quadrant Start:26-Aug-2014 Instruction Type:Provider Instructions for Treatment Patient Instructions Indication:Knee pain Start:24-Dec-2013 Instruction Type:Provider Instructions for Treatment Patient Instructions Indication:Benign essential hypertension Start:22-May-2013 Instruction Type:Provider Instructions for Treatment Patient Instructions Indication:Back pain Start:26-Apr-2013 Instruction Type:Provider Instructions for Treatment Patient Instructions Indication:Insect bite Start:05-Mar-2013 Instruction Type:Provider Instructions for Treatment Patient Instructions Indication:Gastroesophageal reflux disease without esophagitis Start:27-Apr-2012 Instruction Type:Provider Instructions for Treatment [facility] Work Phone: Instructions* Name Dates Details Patient Instructions Indication:Nonsmoker Start:07-May-2021 Instruction Type:Provider Instructions for Treatment How to Access Health Informa tion Online using Patient Portal and [employer] Apps Indication:Nonsmoker Start:07-May-2021 Instruction Type:Patient Education Patient Instructions Indication:BMI 36.0-36.9,adult Start:05-Nov-2020 Instruction Type:Provider Instructions for Treatment How to Access Health Informa tion Online using Patient Portal and [employer] Apps Indication:BMI 36.0-36.9,adult Start:05-Nov-2020 Instruction Type:Patient Education How to access health informa tion online Indication:BMI 36.0-36.9,adult Start:26-Mar-2020 Instruction Type:Patient Education How to access health informa tion online - Detail Indication:BMI 36.0-36.9,adult Start:26-Mar-2020 Instruction Type:Patient Education Patient Instructions Indication:BMI 36.0-36.9,adult Start:26-Mar-2020 Instruction Type:Provider Instructions for Treatment How to access health informa tion online Indication:Compliance poor (Renamed from Poor compliance) Start:16-Jan-2020 Instruction Type:Patient Education How to access health informa tion online - Detail Indication:Compliance poor (Renamed from Poor compliance) Start:16-Jan-2020 Instruction Type:Patient Education How to access health informa tion online Indication:BMI 37.0-37.9, adult Start:28-Oct-2019 Instruction Type:Patient Education How to access health informa tion online - Detail Indication:BMI 37.0-37.9, adult Start:28-Oct-2019 Instruction Type:Patient Education Patient Instructions Indication:BMI 37.0-37.9, adult Start:28-Oct-2019 Instruction Type:Provider Instructions for Treatment How to access health informa tion online Indication:Pharyngitis, acute Start:25-Oct-2019 Instruction Type:Patient Education How to access health informa tion online - Detail Indication:Pharyngitis, acute Start:25-Oct-2019 Instruction Type:Patient Education Patient Instructions Indication:Pharyngitis, acute Start:25-Oct-2019 Instruction Type:Provider Instructions for Treatment How to access health informa tion online Indication:BMI 36.0-36.9,adult Start:16-Oct-2019 Instruction Type:Patient Education How to access health informa tion online - Detail Indication:BMI 36.0-36.9,adult Start:16-Oct-2019 Instruction Type:Patient Education Patient Instructions Indication:BMI 36.0-36.9,adult Start:16-Oct-2019 Instruction Type:Provider Instructions for Treatment How to access health informa tion online Indication:BMI 36.0-36.9,adult Start:15-Jul-2019 Instruction Type:Patient Education How to access health informa tion online - Detail Indication:BMI 36.0-36.9,adult Start:15-Jul-2019 Instruction Type:Patient Education Patient Instructions Indication:BMI 36.0-36.9,adult Start:15-Jul-2019 Instruction Type:Provider Instructions for Treatment How to access health informa tion online Indication:Nonsmoker Start:23-May-2019 Instruction Type:Patient Education How to access health informa tion online - Detail Indication:Nonsmoker Start:23-May-2019 Instruction Type:Patient Education Patient Instructions Indication:Nonsmoker Start:23-May-2019 Instruction Type:Provider Instructions for Treatment How to access health informa tion online Indication:Nonsmoker Start:07-Jan-2019 Instruction Type:Patient Education How to access health informa tion online - Detail Indication:Nonsmoker Start:07-Jan-2019 Instruction Type:Patient Education How to access health informa tion online - Detail Indication:Nonsmoker Start:07-Jan-2019 Instruction Type:Patient Education Patient Instructions Indication:Nonsmoker Start:07-Jan-2019 Instruction Type:Provider Instructions for Treatment How to access health informa tion online Indication:Nonsmoker Start:27-Sep-2018 Instruction Type:Patient Education How to access health informa tion online - Detail Indication:Nonsmoker Start:27-Sep-2018 Instruction Type:Patient Education Patient Instructions Indication:Nonsmoker Start:27-Sep-2018 Instruction Type:Provider Instructions for Treatment How to access health informa tion online Indication:Nonsmoker Start:27-Aug-2018 Instruction Type:Patient Education How to access health informa tion online - Detail Indication:Nonsmoker Start:27-Aug-2018 Instruction Type:Patient Education Patient Instructions Indication:Nonsmoker Start:27-Aug-2018 Instruction Type:Provider Instructions for Treatment How to access health informa tion online Indication:Nonsmoker Start:04-May-2018 Instruction Type:Patient Education How to access health informa tion online - Detail Indication:Nonsmoker Start:04-May-2018 Instruction Type:Patient Education Patient Instructions Indication:Nonsmoker Start:04-May-2018 Instruction Type:Provider Instructions for Treatment How to access health informa tion online Indication:Body mass index 35.0-35.9, adult Start:07-Feb-2018 Instruction Type:Patient Education How to access health informa tion online - Detail Indication:Body mass index 35.0-35.9, adult Start:07-Feb-2018 Instruction Type:Patient Education Patient Instructions Indication:Body mass index 35.0-35.9, adult Start:07-Feb-2018 Instruction Type:Provider Instructions for Treatment How to access health informa tion online Indication:Nonsmoker Start:03-Aug-2017 Instruction Type:Patient Education How to access health informa tion online - Detail Indication:Nonsmoker Start:03-Aug-2017 Instruction Type:Patient Education Patient Instructions Indication:Influenza Start:03-Aug-2017 Instruction Type:Provider Instructions for Treatment How to access health informa tion online Indication:Nonsmoker Start:12-May-2017 Instruction Type:Patient Education How to access health informa tion online - Detail Indication:Nonsmoker Start:12-May-2017 Instruction Type:Patient Education Patient Instructions Indication:Nonsmoker Start:12-May-2017 Instruction Type:Provider Instructions for Treatment How to access health informa tion online Indication:Nonsmoker Start:09-Feb-2017 Instruction Type:Patient Education How to access health informa tion online - Detail Indication:Nonsmoker Start:09-Feb-2017 Instruction Type:Patient Education Patient Instructions Indication:Nonsmoker Start:09-Feb-2017 Instruction Type:Provider Instructions for Treatment How to access health informa tion online Indication:Nonsmoker Start:22-Dec-2016 Instruction Type:Patient Education How to access health informa tion online - Detail Indication:Nonsmoker Start:22-Dec-2016 Instruction Type:Patient Education Patient Instructions Indication:Nonsmoker Start:22-Dec-2016 Instruction Type:Provider Instructions for Treatment Patient Instructions Indication:Benign essential hypertension Start:28-Jul-2016 Instruction Type:Provider Instructions for Treatment How to access health informa tion online Indication:Benign essential hypertension Start:28-Jul-2016 Instruction Type:Patient Education How to access health informa tion online - Detail Indication:Benign essential hypertension Start:28-Jul-2016 Instruction Type:Patient Education How to access health informa tion online Indication:Nonsmoker Start:05-Jul-2016 Instruction Type:Patient Education How to access health informa tion online - Detail Indication:Nonsmoker Start:05-Jul-2016 Instruction Type:Patient Education Patient Instructions Indication:Nonsmoker Start:05-Jul-2016 Instruction Type:Provider Instructions for Treatment How to access health informa tion online Indication:Annual physical exam Start:25-Feb-2016 Instruction Type:Patient Education How to access health informa tion online - Detail Indication:Annual physical exam Start:25-Feb-2016 Instruction Type:Patient Education Patient Instructions Indication:Annual physical exam Start:25-Feb-2016 Instruction Type:Provider Instructions for Treatment How to access health informa tion online Indication:Mixed hyperlipidemia Start:27-Nov-2015 Instruction Type:Patient Education How to access health informa tion online - Detail Indication:Mixed hyperlipidemia Start:27-Nov-2015 Instruction Type:Patient Education Patient Instructions Indication:Mixed hyperlipidemia Start:27-Nov-2015 Instruction Type:Provider Instructions for Treatment How to access health informa tion online Indication:Gastroesophageal reflux disease without esophagitis Start:29-May-2015 Instruction Type:Patient Education How to access health informa tion online - Detail Indication:Gastroesophageal reflux disease without esophagitis Start:29-May-2015 Instruction Type:Patient Education Patient Instructions Indication:Gastroesophageal reflux disease without esophagitis Start:29-May-2015 Instruction Type:Provider Instructions for Treatment Patient Instructions Indication:Other allergic rhinitis Start:27-Jan-2015 Instruction Type:Provider Instructions for Treatment Patient Instructions Indication:Benign essential hypertension Start:07-Oct-2014 Instruction Type:Provider Instructions for Treatment How to access health informa tion online Indication:Abdominal pain, acute, right upper quadrant Start:29-Aug-2014 Instruction Type:Patient Education How to access health informa tion online - Detail Indication:Abdominal pain, acute, right upper quadrant Start:29-Aug-2014 Instruction Type:Patient Education Patient Instructions Indication:Abdominal pain, acute, right upper quadrant Start:29-Aug-2014 Instruction Type:Provider Instructions for Treatment Patient Instructions Indication:Abdominal pain, acute, right upper quadrant Start:26-Aug-2014 Instruction Type:Provider Instructions for Treatment Patient Instructions Indication:Knee pain Start:24-Dec-2013 Instruction Type:Provider Instructions for Treatment Patient Instructions Indication:Benign essential hypertension Start:22-May-2013 Instruction Type:Provider Instructions for Treatment Patient Instructions Indication:Back pain Start:26-Apr-2013 Instruction Type:Provider Instructions for Treatment Patient Instructions Indication:Insect bite Start:05-Mar-2013 Instruction Type:Provider Instructions for Treatment Patient Instructions Indication:Gastroesophageal reflux disease without esophagitis Start:27-Apr-2012 Instruction Type:Provider Instructions for Treatment [facility]; [facility] Work Phone: Instructions* Name Dates Details Patient Instructions Indication:Nonsmoker Start:07-May-2021 Instruction Type:Provider Instructions for Treatment How to Access Health Informa tion Online using Patient Portal and [employer]rd [employer] Apps Indication:Nonsmoker Start:07-May-2021 Instruction Type:Patient Education Patient Instructions Indication:BMI 36.0-36.9,adult Start:05-Nov-2020 Instruction Type:Provider Instructions for Treatment How to Access Health Informa tion Online using Patient Portal and [employer] Apps Indication:BMI 36.0-36.9,adult Start:05-Nov-2020 Instruction Type:Patient Education How to access health informa tion online Indication:BMI 36.0-36.9,adult Start:26-Mar-2020 Instruction Type:Patient Education How to access health informa tion online - Detail Indication:BMI 36.0-36.9,adult Start:26-Mar-2020 Instruction Type:Patient Education Patient Instructions Indication:BMI 36.0-36.9,adult Start:26-Mar-2020 Instruction Type:Provider Instructions for Treatment How to access health informa tion online Indication:Compliance poor (Renamed from Poor compliance) Start:16-Jan-2020 Instruction Type:Patient Education How to access health informa tion online - Detail Indication:Compliance poor (Renamed from Poor compliance) Start:16-Jan-2020 Instruction Type:Patient Education How to access health informa tion online Indication:BMI 37.0-37.9, adult Start:28-Oct-2019 Instruction Type:Patient Education How to access health informa tion online - Detail Indication:BMI 37.0-37.9, adult Start:28-Oct-2019 Instruction Type:Patient Education Patient Instructions Indication:BMI 37.0-37.9, adult Start:28-Oct-2019 Instruction Type:Provider Instructions for Treatment How to access health informa tion online Indication:Pharyngitis, acute Start:25-Oct-2019 Instruction Type:Patient Education How to access health informa tion online - Detail Indication:Pharyngitis, acute Start:25-Oct-2019 Instruction Type:Patient Education Patient Instructions Indication:Pharyngitis, acute Start:25-Oct-2019 Instruction Type:Provider Instructions for Treatment How to access health informa tion online Indication:BMI 36.0-36.9,adult Start:16-Oct-2019 Instruction Type:Patient Education How to access health informa tion online - Detail Indication:BMI 36.0-36.9,adult Start:16-Oct-2019 Instruction Type:Patient Education Patient Instructions Indication:BMI 36.0-36.9,adult Start:16-Oct-2019 Instruction Type:Provider Instructions for Treatment How to access health informa tion online Indication:BMI 36.0-36.9,adult Start:15-Jul-2019 Instruction Type:Patient Education How to access health informa tion online - Detail Indication:BMI 36.0-36.9,adult Start:15-Jul-2019 Instruction Type:Patient Education Patient Instructions Indication:BMI 36.0-36.9,adult Start:15-Jul-2019 Instruction Type:Provider Instructions for Treatment How to access health informa tion online Indication:Nonsmoker Start:23-May-2019 Instruction Type:Patient Education How to access health informa tion online - Detail Indication:Nonsmoker Start:23-May-2019 Instruction Type:Patient Education Patient Instructions Indication:Nonsmoker Start:23-May-2019 Instruction Type:Provider Instructions for Treatment How to access health informa tion online Indication:Nonsmoker Start:07-Jan-2019 Instruction Type:Patient Education How to access health informa tion online - Detail Indication:Nonsmoker Start:07-Jan-2019 Instruction Type:Patient Education How to access health informa tion online - Detail Indication:Nonsmoker Start:07-Jan-2019 Instruction Type:Patient Education Patient Instructions Indication:Nonsmoker Start:07-Jan-2019 Instruction Type:Provider Instructions for Treatment How to access health informa tion online Indication:Nonsmoker Start:27-Sep-2018 Instruction Type:Patient Education How to access health informa tion online - Detail Indication:Nonsmoker Start:27-Sep-2018 Instruction Type:Patient Education Patient Instructions Indication:Nonsmoker Start:27-Sep-2018 Instruction Type:Provider Instructions for Treatment How to access health informa tion online Indication:Nonsmoker Start:27-Aug-2018 Instruction Type:Patient Education How to access health informa tion online - Detail Indication:Nonsmoker Start:27-Aug-2018 Instruction Type:Patient Education Patient Instructions Indication:Nonsmoker Start:27-Aug-2018 Instruction Type:Provider Instructions for Treatment How to access health informa tion online Indication:Nonsmoker Start:04-May-2018 Instruction Type:Patient Education How to access health informa tion online - Detail Indication:Nonsmoker Start:04-May-2018 Instruction Type:Patient Education Patient Instructions Indication:Nonsmoker Start:04-May-2018 Instruction Type:Provider Instructions for Treatment How to access health informa tion online Indication:Body mass index 35.0-35.9, adult Start:07-Feb-2018 Instruction Type:Patient Education How to access health informa tion online - Detail Indication:Body mass index 35.0-35.9, adult Start:07-Feb-2018 Instruction Type:Patient Education Patient Instructions Indication:Body mass index 35.0-35.9, adult Start:07-Feb-2018 Instruction Type:Provider Instructions for Treatment How to access health informa tion online Indication:Nonsmoker Start:03-Aug-2017 Instruction Type:Patient Education How to access health informa tion online - Detail Indication:Nonsmoker Start:03-Aug-2017 Instruction Type:Patient Education Patient Instructions Indication:Influenza Start:03-Aug-2017 Instruction Type:Provider Instructions for Treatment How to access health informa tion online Indication:Nonsmoker Start:12-May-2017 Instruction Type:Patient Education How to access health informa tion online - Detail Indication:Nonsmoker Start:12-May-2017 Instruction Type:Patient Education Patient Instructions Indication:Nonsmoker Start:12-May-2017 Instruction Type:Provider Instructions for Treatment How to access health informa tion online Indication:Nonsmoker Start:09-Feb-2017 Instruction Type:Patient Education How to access health informa tion online - Detail Indication:Nonsmoker Start:09-Feb-2017 Instruction Type:Patient Education Patient Instructions Indication:Nonsmoker Start:09-Feb-2017 Instruction Type:Provider Instructions for Treatment How to access health informa tion online Indication:Nonsmoker Start:22-Dec-2016 Instruction Type:Patient Education How to access health informa tion online - Detail Indication:Nonsmoker Start:22-Dec-2016 Instruction Type:Patient Education Patient Instructions Indication:Nonsmoker Start:22-Dec-2016 Instruction Type:Provider Instructions for Treatment Patient Instructions Indication:Benign essential hypertension Start:28-Jul-2016 Instruction Type:Provider Instructions for Treatment How to access health informa tion online Indication:Benign essential hypertension Start:28-Jul-2016 Instruction Type:Patient Education How to access health informa tion online - Detail Indication:Benign essential hypertension Start:28-Jul-2016 Instruction Type:Patient Education How to access health informa tion online Indication:Nonsmoker Start:05-Jul-2016 Instruction Type:Patient Education How to access health informa tion online - Detail Indication:Nonsmoker Start:05-Jul-2016 Instruction Type:Patient Education Patient Instructions Indication:Nonsmoker Start:05-Jul-2016 Instruction Type:Provider Instructions for Treatment How to access health informa tion online Indication:Annual physical exam Start:25-Feb-2016 Instruction Type:Patient Education How to access health informa tion online - Detail Indication:Annual physical exam Start:25-Feb-2016 Instruction Type:Patient Education Patient Instructions Indication:Annual physical exam Start:25-Feb-2016 Instruction Type:Provider Instructions for Treatment How to access health informa tion online Indication:Mixed hyperlipidemia Start:27-Nov-2015 Instruction Type:Patient Education How to access health informa tion online - Detail Indication:Mixed hyperlipidemia Start:27-Nov-2015 Instruction Type:Patient Education Patient Instructions Indication:Mixed hyperlipidemia Start:27-Nov-2015 Instruction Type:Provider Instructions for Treatment How to access health informa tion online Indication:Gastroesophageal reflux disease without esophagitis Start:29-May-2015 Instruction Type:Patient Education How to access health informa tion online - Detail Indication:Gastroesophageal reflux disease without esophagitis Start:29-May-2015 Instruction Type:Patient Education Patient Instructions Indication:Gastroesophageal reflux disease without esophagitis Start:29-May-2015 Instruction Type:Provider Instructions for Treatment Patient Instructions Indication:Other allergic rhinitis Start:27-Jan-2015 Instruction Type:Provider Instructions for Treatment Patient Instructions Indication:Benign essential hypertension Start:07-Oct-2014 Instruction Type:Provider Instructions for Treatment How to access health informa tion online Indication:Abdominal pain, acute, right upper quadrant Start:29-Aug-2014 Instruction Type:Patient Education How to access health informa tion online - Detail Indication:Abdominal pain, acute, right upper quadrant Start:29-Aug-2014 Instruction Type:Patient Education Patient Instructions Indication:Abdominal pain, acute, right upper quadrant Start:29-Aug-2014 Instruction Type:Provider Instructions for Treatment Patient Instructions Indication:Abdominal pain, acute, right upper quadrant Start:26-Aug-2014 Instruction Type:Provider Instructions for Treatment Patient Instructions Indication:Knee pain Start:24-Dec-2013 Instruction Type:Provider Instructions for Treatment Patient Instructions Indication:Benign essential hypertension Start:22-May-2013 Instruction Type:Provider Instructions for Treatment Patient Instructions Indication:Back pain Start:26-Apr-2013 Instruction Type:Provider Instructions for Treatment Patient Instructions Indication:Insect bite Start:05-Mar-2013 Instruction Type:Provider Instructions for Treatment Patient Instructions Indication:Gastroesophageal reflux disease without esophagitis Start:27-Apr-2012 Instruction Type:Provider Instructions for Treatment [facility]; [facility] Work Phone: Instructions* Name Dates Details Patient Instructions Indication:Nonsmoker Start:07-May-2021 Instruction Type:Provider Instructions for Treatment How to Access Health Informa tion Online using Patient Portal and [employer] Apps Indication:Nonsmoker Start:07-May-2021 Instruction Type:Patient Education Patient Instructions Indication:BMI 36.0-36.9,adult Start:05-Nov-2020 Instruction Type:Provider Instructions for Treatment How to Access Health Informa tion Online using Patient Portal and [employer] Apps Indication:BMI 36.0-36.9,adult Start:05-Nov-2020 Instruction Type:Patient Education How to access health informa tion online Indication:BMI 36.0-36.9,adult Start:26-Mar-2020 Instruction Type:Patient Education How to access health informa tion online - Detail Indication:BMI 36.0-36.9,adult Start:26-Mar-2020 Instruction Type:Patient Education Patient Instructions Indication:BMI 36.0-36.9,adult Start:26-Mar-2020 Instruction Type:Provider Instructions for Treatment How to access health informa tion online Indication:Compliance poor (Renamed from Poor compliance) Start:16-Jan-2020 Instruction Type:Patient Education How to access health informa tion online - Detail Indication:Compliance poor (Renamed from Poor compliance) Start:16-Jan-2020 Instruction Type:Patient Education How to access health informa tion online Indication:BMI 37.0-37.9, adult Start:28-Oct-2019 Instruction Type:Patient Education How to access health informa tion online - Detail Indication:BMI 37.0-37.9, adult Start:28-Oct-2019 Instruction Type:Patient Education Patient Instructions Indication:BMI 37.0-37.9, adult Start:28-Oct-2019 Instruction Type:Provider Instructions for Treatment How to access health informa tion online Indication:Pharyngitis, acute Start:25-Oct-2019 Instruction Type:Patient Education How to access health informa tion online - Detail Indication:Pharyngitis, acute Start:25-Oct-2019 Instruction Type:Patient Education Patient Instructions Indication:Pharyngitis, acute Start:25-Oct-2019 Instruction Type:Provider Instructions for Treatment How to access health informa tion online Indication:BMI 36.0-36.9,adult Start:16-Oct-2019 Instruction Type:Patient Education How to access health informa tion online - Detail Indication:BMI 36.0-36.9,adult Start:16-Oct-2019 Instruction Type:Patient Education Patient Instructions Indication:BMI 36.0-36.9,adult Start:16-Oct-2019 Instruction Type:Provider Instructions for Treatment How to access health informa tion online Indication:BMI 36.0-36.9,adult Start:15-Jul-2019 Instruction Type:Patient Education How to access health informa tion online - Detail Indication:BMI 36.0-36.9,adult Start:15-Jul-2019 Instruction Type:Patient Education Patient Instructions Indication:BMI 36.0-36.9,adult Start:15-Jul-2019 Instruction Type:Provider Instructions for Treatment How to access health informa tion online Indication:Nonsmoker Start:23-May-2019 Instruction Type:Patient Education How to access health informa tion online - Detail Indication:Nonsmoker Start:23-May-2019 Instruction Type:Patient Education Patient Instructions Indication:Nonsmoker Start:23-May-2019 Instruction Type:Provider Instructions for Treatment How to access health informa tion online Indication:Nonsmoker Start:07-Jan-2019 Instruction Type:Patient Education How to access health informa tion online - Detail Indication:Nonsmoker Start:07-Jan-2019 Instruction Type:Patient Education How to access health informa tion online - Detail Indication:Nonsmoker Start:07-Jan-2019 Instruction Type:Patient Education Patient Instructions Indication:Nonsmoker Start:07-Jan-2019 Instruction Type:Provider Instructions for Treatment How to access health informa tion online Indication:Nonsmoker Start:27-Sep-2018 Instruction Type:Patient Education How to access health informa tion online - Detail Indication:Nonsmoker Start:27-Sep-2018 Instruction Type:Patient Education Patient Instructions Indication:Nonsmoker Start:27-Sep-2018 Instruction Type:Provider Instructions for Treatment How to access health informa tion online Indication:Nonsmoker Start:27-Aug-2018 Instruction Type:Patient Education How to access health informa tion online - Detail Indication:Nonsmoker Start:27-Aug-2018 Instruction Type:Patient Education Patient Instructions Indication:Nonsmoker Start:27-Aug-2018 Instruction Type:Provider Instructions for Treatment How to access health informa tion online Indication:Nonsmoker Start:04-May-2018 Instruction Type:Patient Education How to access health informa tion online - Detail Indication:Nonsmoker Start:04-May-2018 Instruction Type:Patient Education Patient Instructions Indication:Nonsmoker Start:04-May-2018 Instruction Type:Provider Instructions for Treatment How to access health informa tion online Indication:Body mass index 35.0-35.9, adult Start:07-Feb-2018 Instruction Type:Patient Education How to access health informa tion online - Detail Indication:Body mass index 35.0-35.9, adult Start:07-Feb-2018 Instruction Type:Patient Education Patient Instructions Indication:Body mass index 35.0-35.9, adult Start:07-Feb-2018 Instruction Type:Provider Instructions for Treatment How to access health informa tion online Indication:Nonsmoker Start:03-Aug-2017 Instruction Type:Patient Education How to access health informa tion online - Detail Indication:Nonsmoker Start:03-Aug-2017 Instruction Type:Patient Education Patient Instructions Indication:Influenza Start:03-Aug-2017 Instruction Type:Provider Instructions for Treatment How to access health informa tion online Indication:Nonsmoker Start:12-May-2017 Instruction Type:Patient Education How to access health informa tion online - Detail Indication:Nonsmoker Start:12-May-2017 Instruction Type:Patient Education Patient Instructions Indication:Nonsmoker Start:12-May-2017 Instruction Type:Provider Instructions for Treatment How to access health informa tion online Indication:Nonsmoker Start:09-Feb-2017 Instruction Type:Patient Education How to access health informa tion online - Detail Indication:Nonsmoker Start:09-Feb-2017 Instruction Type:Patient Education Patient Instructions Indication:Nonsmoker Start:09-Feb-2017 Instruction Type:Provider Instructions for Treatment How to access health informa tion online Indication:Nonsmoker Start:22-Dec-2016 Instruction Type:Patient Education How to access health informa tion online - Detail Indication:Nonsmoker Start:22-Dec-2016 Instruction Type:Patient Education Patient Instructions Indication:Nonsmoker Start:22-Dec-2016 Instruction Type:Provider Instructions for Treatment Patient Instructions Indication:Benign essential hypertension Start:28-Jul-2016 Instruction Type:Provider Instructions for Treatment How to access health informa tion online Indication:Benign essential hypertension Start:28-Jul-2016 Instruction Type:Patient Education How to access health informa tion online - Detail Indication:Benign essential hypertension Start:28-Jul-2016 Instruction Type:Patient Education How to access health informa tion online Indication:Nonsmoker Start:05-Jul-2016 Instruction Type:Patient Education How to access health informa tion online - Detail Indication:Nonsmoker Start:05-Jul-2016 Instruction Type:Patient Education Patient Instructions Indication:Nonsmoker Start:05-Jul-2016 Instruction Type:Provider Instructions for Treatment How to access health informa tion online Indication:Annual physical exam Start:25-Feb-2016 Instruction Type:Patient Education How to access health informa tion online - Detail Indication:Annual physical exam Start:25-Feb-2016 Instruction Type:Patient Education Patient Instructions Indication:Annual physical exam Start:25-Feb-2016 Instruction Type:Provider Instructions for Treatment How to access health informa tion online Indication:Mixed hyperlipidemia Start:27-Nov-2015 Instruction Type:Patient Education How to access health informa tion online - Detail Indication:Mixed hyperlipidemia Start:27-Nov-2015 Instruction Type:Patient Education Patient Instructions Indication:Mixed hyperlipidemia Start:27-Nov-2015 Instruction Type:Provider Instructions for Treatment How to access health informa tion online Indication:Gastroesophageal reflux disease without esophagitis Start:29-May-2015 Instruction Type:Patient Education How to access health informa tion online - Detail Indication:Gastroesophageal reflux disease without esophagitis Start:29-May-2015 Instruction Type:Patient Education Patient Instructions Indication:Gastroesophageal reflux disease without esophagitis Start:29-May-2015 Instruction Type:Provider Instructions for Treatment Patient Instructions Indication:Other allergic rhinitis Start:27-Jan-2015 Instruction Type:Provider Instructions for Treatment Patient Instructions Indication:Benign essential hypertension Start:07-Oct-2014 Instruction Type:Provider Instructions for Treatment How to access health informa tion online Indication:Abdominal pain, acute, right upper quadrant Start:29-Aug-2014 Instruction Type:Patient Education How to access health informa tion online - Detail Indication:Abdominal pain, acute, right upper quadrant Start:29-Aug-2014 Instruction Type:Patient Education Patient Instructions Indication:Abdominal pain, acute, right upper quadrant Start:29-Aug-2014 Instruction Type:Provider Instructions for Treatment Patient Instructions Indication:Abdominal pain, acute, right upper quadrant Start:26-Aug-2014 Instruction Type:Provider Instructions for Treatment Patient Instructions Indication:Knee pain Start:24-Dec-2013 Instruction Type:Provider Instructions for Treatment Patient Instructions Indication:Benign essential hypertension Start:22-May-2013 Instruction Type:Provider Instructions for Treatment Patient Instructions Indication:Back pain Start:26-Apr-2013 Instruction Type:Provider Instructions for Treatment Patient Instructions Indication:Insect bite Start:05-Mar-2013 Instruction Type:Provider Instructions for Treatment Patient Instructions Indication:Gastroesophageal reflux disease without esophagitis Start:27-Apr-2012 Instruction Type:Provider Instructions for Treatment [facility]; [facility] Work Phone: Instructions* Name Dates Details Patient Instructions Indication:Nonsmoker Start:07-May-2021 Instruction Type:Provider Instructions for Treatment How to Access Health Informa tion Online using Patient Portal and [employer] Apps Indication:Nonsmoker Start:07-May-2021 Instruction Type:Patient Education Patient Instructions Indication:BMI 36.0-36.9,adult Start:05-Nov-2020 Instruction Type:Provider Instructions for Treatment How to Access Health Informa tion Online using Patient Portal and [employer] Apps Indication:BMI 36.0-36.9,adult Start:05-Nov-2020 Instruction Type:Patient Education How to access health informa tion online Indication:BMI 36.0-36.9,adult Start:26-Mar-2020 Instruction Type:Patient Education How to access health informa tion online - Detail Indication:BMI 36.0-36.9,adult Start:26-Mar-2020 Instruction Type:Patient Education Patient Instructions Indication:BMI 36.0-36.9,adult Start:26-Mar-2020 Instruction Type:Provider Instructions for Treatment How to access health informa tion online Indication:Compliance poor (Renamed from Poor compliance) Start:16-Jan-2020 Instruction Type:Patient Education How to access health informa tion online - Detail Indication:Compliance poor (Renamed from Poor compliance) Start:16-Jan-2020 Instruction Type:Patient Education How to access health informa tion online Indication:BMI 37.0-37.9, adult Start:28-Oct-2019 Instruction Type:Patient Education How to access health informa tion online - Detail Indication:BMI 37.0-37.9, adult Start:28-Oct-2019 Instruction Type:Patient Education Patient Instructions Indication:BMI 37.0-37.9, adult Start:28-Oct-2019 Instruction Type:Provider Instructions for Treatment How to access health informa tion online Indication:Pharyngitis, acute Start:25-Oct-2019 Instruction Type:Patient Education How to access health informa tion online - Detail Indication:Pharyngitis, acute Start:25-Oct-2019 Instruction Type:Patient Education Patient Instructions Indication:Pharyngitis, acute Start:25-Oct-2019 Instruction Type:Provider Instructions for Treatment How to access health informa tion online Indication:BMI 36.0-36.9,adult Start:16-Oct-2019 Instruction Type:Patient Education How to access health informa tion online - Detail Indication:BMI 36.0-36.9,adult Start:16-Oct-2019 Instruction Type:Patient Education Patient Instructions Indication:BMI 36.0-36.9,adult Start:16-Oct-2019 Instruction Type:Provider Instructions for Treatment How to access health informa tion online Indication:BMI 36.0-36.9,adult Start:15-Jul-2019 Instruction Type:Patient Education How to access health informa tion online - Detail Indication:BMI 36.0-36.9,adult Start:15-Jul-2019 Instruction Type:Patient Education Patient Instructions Indication:BMI 36.0-36.9,adult Start:15-Jul-2019 Instruction Type:Provider Instructions for Treatment How to access health informa tion online Indication:Nonsmoker Start:23-May-2019 Instruction Type:Patient Education How to access health informa tion online - Detail Indication:Nonsmoker Start:23-May-2019 Instruction Type:Patient Education Patient Instructions Indication:Nonsmoker Start:23-May-2019 Instruction Type:Provider Instructions for Treatment How to access health informa tion online Indication:Nonsmoker Start:07-Jan-2019 Instruction Type:Patient Education How to access health informa tion online - Detail Indication:Nonsmoker Start:07-Jan-2019 Instruction Type:Patient Education How to access health informa tion online - Detail Indication:Nonsmoker Start:07-Jan-2019 Instruction Type:Patient Education Patient Instructions Indication:Nonsmoker Start:07-Jan-2019 Instruction Type:Provider Instructions for Treatment How to access health informa tion online Indication:Nonsmoker Start:27-Sep-2018 Instruction Type:Patient Education How to access health informa tion online - Detail Indication:Nonsmoker Start:27-Sep-2018 Instruction Type:Patient Education Patient Instructions Indication:Nonsmoker Start:27-Sep-2018 Instruction Type:Provider Instructions for Treatment How to access health informa tion online Indication:Nonsmoker Start:27-Aug-2018 Instruction Type:Patient Education How to access health informa tion online - Detail Indication:Nonsmoker Start:27-Aug-2018 Instruction Type:Patient Education Patient Instructions Indication:Nonsmoker Start:27-Aug-2018 Instruction Type:Provider Instructions for Treatment How to access health informa tion online Indication:Nonsmoker Start:04-May-2018 Instruction Type:Patient Education How to access health informa tion online - Detail Indication:Nonsmoker Start:04-May-2018 Instruction Type:Patient Education Patient Instructions Indication:Nonsmoker Start:04-May-2018 Instruction Type:Provider Instructions for Treatment How to access health informa tion online Indication:Body mass index 35.0-35.9, adult Start:07-Feb-2018 Instruction Type:Patient Education How to access health informa tion online - Detail Indication:Body mass index 35.0-35.9, adult Start:07-Feb-2018 Instruction Type:Patient Education Patient Instructions Indication:Body mass index 35.0-35.9, adult Start:07-Feb-2018 Instruction Type:Provider Instructions for Treatment How to access health informa tion online Indication:Nonsmoker Start:03-Aug-2017 Instruction Type:Patient Education How to access health informa tion online - Detail Indication:Nonsmoker Start:03-Aug-2017 Instruction Type:Patient Education Patient Instructions Indication:Influenza Start:03-Aug-2017 Instruction Type:Provider Instructions for Treatment How to access health informa tion online Indication:Nonsmoker Start:12-May-2017 Instruction Type:Patient Education How to access health informa tion online - Detail Indication:Nonsmoker Start:12-May-2017 Instruction Type:Patient Education Patient Instructions Indication:Nonsmoker Start:12-May-2017 Instruction Type:Provider Instructions for Treatment How to access health informa tion online Indication:Nonsmoker Start:09-Feb-2017 Instruction Type:Patient Education How to access health informa tion online - Detail Indication:Nonsmoker Start:09-Feb-2017 Instruction Type:Patient Education Patient Instructions Indication:Nonsmoker Start:09-Feb-2017 Instruction Type:Provider Instructions for Treatment How to access health informa tion online Indication:Nonsmoker Start:22-Dec-2016 Instruction Type:Patient Education How to access health informa tion online - Detail Indication:Nonsmoker Start:22-Dec-2016 Instruction Type:Patient Education Patient Instructions Indication:Nonsmoker Start:22-Dec-2016 Instruction Type:Provider Instructions for Treatment Patient Instructions Indication:Benign essential hypertension Start:28-Jul-2016 Instruction Type:Provider Instructions for Treatment How to access health informa tion online Indication:Benign essential hypertension Start:28-Jul-2016 Instruction Type:Patient Education How to access health informa tion online - Detail Indication:Benign essential hypertension Start:28-Jul-2016 Instruction Type:Patient Education How to access health informa tion online Indication:Nonsmoker Start:05-Jul-2016 Instruction Type:Patient Education How to access health informa tion online - Detail Indication:Nonsmoker Start:05-Jul-2016 Instruction Type:Patient Education Patient Instructions Indication:Nonsmoker Start:05-Jul-2016 Instruction Type:Provider Instructions for Treatment How to access health informa tion online Indication:Annual physical exam Start:25-Feb-2016 Instruction Type:Patient Education How to access health informa tion online - Detail Indication:Annual physical exam Start:25-Feb-2016 Instruction Type:Patient Education Patient Instructions Indication:Annual physical exam Start:25-Feb-2016 Instruction Type:Provider Instructions for Treatment How to access health informa tion online Indication:Mixed hyperlipidemia Start:27-Nov-2015 Instruction Type:Patient Education How to access health informa tion online - Detail Indication:Mixed hyperlipidemia Start:27-Nov-2015 Instruction Type:Patient Education Patient Instructions Indication:Mixed hyperlipidemia Start:27-Nov-2015 Instruction Type:Provider Instructions for Treatment How to access health informa tion online Indication:Gastroesophageal reflux disease without esophagitis Start:29-May-2015 Instruction Type:Patient Education How to access health informa tion online - Detail Indication:Gastroesophageal reflux disease without esophagitis Start:29-May-2015 Instruction Type:Patient Education Patient Instructions Indication:Gastroesophageal reflux disease without esophagitis Start:29-May-2015 Instruction Type:Provider Instructions for Treatment Patient Instructions Indication:Other allergic rhinitis Start:27-Jan-2015 Instruction Type:Provider Instructions for Treatment Patient Instructions Indication:Benign essential hypertension Start:07-Oct-2014 Instruction Type:Provider Instructions for Treatment How to access health informa tion online Indication:Abdominal pain, acute, right upper quadrant Start:29-Aug-2014 Instruction Type:Patient Education How to access health informa tion online - Detail Indication:Abdominal pain, acute, right upper quadrant Start:29-Aug-2014 Instruction Type:Patient Education Patient Instructions Indication:Abdominal pain, acute, right upper quadrant Start:29-Aug-2014 Instruction Type:Provider Instructions for Treatment Patient Instructions Indication:Abdominal pain, acute, right upper quadrant Start:26-Aug-2014 Instruction Type:Provider Instructions for Treatment Patient Instructions Indication:Knee pain Start:24-Dec-2013 Instruction Type:Provider Instructions for Treatment Patient Instructions Indication:Benign essential hypertension Start:22-May-2013 Instruction Type:Provider Instructions for Treatment Patient Instructions Indication:Back pain Start:26-Apr-2013 Instruction Type:Provider Instructions for Treatment Patient Instructions Indication:Insect bite Start:05-Mar-2013 Instruction Type:Provider Instructions for Treatment Patient Instructions Indication:Gastroesophageal reflux disease without esophagitis Start:27-Apr-2012 Instruction Type:Provider Instructions for Treatment [facility]; [facility] Work Phone: Instructions* Name Dates Details How to Access Health Informa tion Online using Patient Portal and [employer] Apps Indication:Nonsmoker Start:22-Oct-2021 Instruction Type:Patient Education Patient Instructions Indication:Nonsmoker Start:22-Oct-2021 Instruction Type:Provider Instructions for Treatment Patient Instructions Indication:Nonsmoker Start:07-May-2021 Instruction Type:Provider Instructions for Treatment How to Access Health Informa tion Online using Patient Portal and [employer] Apps Indication:Nonsmoker Start:07-May-2021 Instruction Type:Patient Education Patient Instructions Indication:BMI 36.0-36.9,adult Start:05-Nov-2020 Instruction Type:Provider Instructions for Treatment How to Access Health Informa tion Online using Patient Portal and [employer] Apps Indication:BMI 36.0-36.9,adult Start:05-Nov-2020 Instruction Type:Patient Education How to access health informa tion online Indication:BMI 36.0-36.9,adult Start:26-Mar-2020 Instruction Type:Patient Education How to access health informa tion online - Detail Indication:BMI 36.0-36.9,adult Start:26-Mar-2020 Instruction Type:Patient Education Patient Instructions Indication:BMI 36.0-36.9,adult Start:26-Mar-2020 Instruction Type:Provider Instructions for Treatment How to access health informa tion online Indication:Compliance poor (Renamed from Poor compliance) Start:16-Jan-2020 Instruction Type:Patient Education How to access health informa tion online - Detail Indication:Compliance poor (Renamed from Poor compliance) Start:16-Jan-2020 Instruction Type:Patient Education How to access health informa tion online Indication:BMI 37.0-37.9, adult Start:28-Oct-2019 Instruction Type:Patient Education How to access health informa tion online - Detail Indication:BMI 37.0-37.9, adult Start:28-Oct-2019 Instruction Type:Patient Education Patient Instructions Indication:BMI 37.0-37.9, adult Start:28-Oct-2019 Instruction Type:Provider Instructions for Treatment How to access health informa tion online Indication:Pharyngitis, acute Start:25-Oct-2019 Instruction Type:Patient Education How to access health informa tion online - Detail Indication:Pharyngitis, acute Start:25-Oct-2019 Instruction Type:Patient Education Patient Instructions Indication:Pharyngitis, acute Start:25-Oct-2019 Instruction Type:Provider Instructions for Treatment How to access health informa tion online Indication:BMI 36.0-36.9,adult Start:16-Oct-2019 Instruction Type:Patient Education How to access health informa tion online - Detail Indication:BMI 36.0-36.9,adult Start:16-Oct-2019 Instruction Type:Patient Education Patient Instructions Indication:BMI 36.0-36.9,adult Start:16-Oct-2019 Instruction Type:Provider Instructions for Treatment How to access health informa tion online Indication:BMI 36.0-36.9,adult Start:15-Jul-2019 Instruction Type:Patient Education How to access health informa tion online - Detail Indication:BMI 36.0-36.9,adult Start:15-Jul-2019 Instruction Type:Patient Education Patient Instructions Indication:BMI 36.0-36.9,adult Start:15-Jul-2019 Instruction Type:Provider Instructions for Treatment How to access health informa tion online Indication:Nonsmoker Start:23-May-2019 Instruction Type:Patient Education How to access health informa tion online - Detail Indication:Nonsmoker Start:23-May-2019 Instruction Type:Patient Education Patient Instructions Indication:Nonsmoker Start:23-May-2019 Instruction Type:Provider Instructions for Treatment How to access health informa tion online Indication:Nonsmoker Start:07-Jan-2019 Instruction Type:Patient Education How to access health informa tion online - Detail Indication:Nonsmoker Start:07-Jan-2019 Instruction Type:Patient Education How to access health informa tion online - Detail Indication:Nonsmoker Start:07-Jan-2019 Instruction Type:Patient Education Patient Instructions Indication:Nonsmoker Start:07-Jan-2019 Instruction Type:Provider Instructions for Treatment How to access health informa tion online Indication:Nonsmoker Start:27-Sep-2018 Instruction Type:Patient Education How to access health informa tion online - Detail Indication:Nonsmoker Start:27-Sep-2018 Instruction Type:Patient Education Patient Instructions Indication:Nonsmoker Start:27-Sep-2018 Instruction Type:Provider Instructions for Treatment How to access health informa tion online Indication:Nonsmoker Start:27-Aug-2018 Instruction Type:Patient Education How to access health informa tion online - Detail Indication:Nonsmoker Start:27-Aug-2018 Instruction Type:Patient Education Patient Instructions Indication:Nonsmoker Start:27-Aug-2018 Instruction Type:Provider Instructions for Treatment How to access health informa tion online Indication:Nonsmoker Start:04-May-2018 Instruction Type:Patient Education How to access health informa tion online - Detail Indication:Nonsmoker Start:04-May-2018 Instruction Type:Patient Education Patient Instructions Indication:Nonsmoker Start:04-May-2018 Instruction Type:Provider Instructions for Treatment How to access health informa tion online Indication:Body mass index 35.0-35.9, adult Start:07-Feb-2018 Instruction Type:Patient Education How to access health informa tion online - Detail Indication:Body mass index 35.0-35.9, adult Start:07-Feb-2018 Instruction Type:Patient Education Patient Instructions Indication:Body mass index 35.0-35.9, adult Start:07-Feb-2018 Instruction Type:Provider Instructions for Treatment How to access health informa tion online Indication:Nonsmoker Start:03-Aug-2017 Instruction Type:Patient Education How to access health informa tion online - Detail Indication:Nonsmoker Start:03-Aug-2017 Instruction Type:Patient Education Patient Instructions Indication:Influenza Start:03-Aug-2017 Instruction Type:Provider Instructions for Treatment How to access health informa tion online Indication:Nonsmoker Start:12-May-2017 Instruction Type:Patient Education How to access health informa tion online - Detail Indication:Nonsmoker Start:12-May-2017 Instruction Type:Patient Education Patient Instructions Indication:Nonsmoker Start:12-May-2017 Instruction Type:Provider Instructions for Treatment How to access health informa tion online Indication:Nonsmoker Start:09-Feb-2017 Instruction Type:Patient Education How to access health informa tion online - Detail Indication:Nonsmoker Start:09-Feb-2017 Instruction Type:Patient Education Patient Instructions Indication:Nonsmoker Start:09-Feb-2017 Instruction Type:Provider Instructions for Treatment How to access health informa tion online Indication:Nonsmoker Start:22-Dec-2016 Instruction Type:Patient Education How to access health informa tion online - Detail Indication:Nonsmoker Start:22-Dec-2016 Instruction Type:Patient Education Patient Instructions Indication:Nonsmoker Start:22-Dec-2016 Instruction Type:Provider Instructions for Treatment Patient Instructions Indication:Benign essential hypertension Start:28-Jul-2016 Instruction Type:Provider Instructions for Treatment How to access health informa tion online Indication:Benign essential hypertension Start:28-Jul-2016 Instruction Type:Patient Education How to access health informa tion online - Detail Indication:Benign essential hypertension Start:28-Jul-2016 Instruction Type:Patient Education How to access health informa tion online Indication:Nonsmoker Start:05-Jul-2016 Instruction Type:Patient Education How to access health informa tion online - Detail Indication:Nonsmoker Start:05-Jul-2016 Instruction Type:Patient Education Patient Instructions Indication:Nonsmoker Start:05-Jul-2016 Instruction Type:Provider Instructions for Treatment How to access health informa tion online Indication:Annual physical exam Start:25-Feb-2016 Instruction Type:Patient Education How to access health informa tion online - Detail Indication:Annual physical exam Start:25-Feb-2016 Instruction Type:Patient Education Patient Instructions Indication:Annual physical exam Start:25-Feb-2016 Instruction Type:Provider Instructions for Treatment How to access health informa tion online Indication:Mixed hyperlipidemia Start:27-Nov-2015 Instruction Type:Patient Education How to access health informa tion online - Detail Indication:Mixed hyperlipidemia Start:27-Nov-2015 Instruction Type:Patient Education Patient Instructions Indication:Mixed hyperlipidemia Start:27-Nov-2015 Instruction Type:Provider Instructions for Treatment How to access health informa tion online Indication:Gastroesophageal reflux disease without esophagitis Start:29-May-2015 Instruction Type:Patient Education How to access health informa tion online - Detail Indication:Gastroesophageal reflux disease without esophagitis Start:29-May-2015 Instruction Type:Patient Education Patient Instructions Indication:Gastroesophageal reflux disease without esophagitis Start:29-May-2015 Instruction Type:Provider Instructions for Treatment Patient Instructions Indication:Other allergic rhinitis Start:27-Jan-2015 Instruction Type:Provider Instructions for Treatment Patient Instructions Indication:Benign essential hypertension Start:07-Oct-2014 Instruction Type:Provider Instructions for Treatment How to access health informa tion online Indication:Abdominal pain, acute, right upper quadrant Start:29-Aug-2014 Instruction Type:Patient Education How to access health informa tion online - Detail Indication:Abdominal pain, acute, right upper quadrant Start:29-Aug-2014 Instruction Type:Patient Education Patient Instructions Indication:Abdominal pain, acute, right upper quadrant Start:29-Aug-2014 Instruction Type:Provider Instructions for Treatment Patient Instructions Indication:Abdominal pain, acute, right upper quadrant Start:26-Aug-2014 Instruction Type:Provider Instructions for Treatment Patient Instructions Indication:Knee pain Start:24-Dec-2013 Instruction Type:Provider Instructions for Treatment Patient Instructions Indication:Benign essential hypertension Start:22-May-2013 Instruction Type:Provider Instructions for Treatment Patient Instructions Indication:Back pain Start:26-Apr-2013 Instruction Type:Provider Instructions for Treatment Patient Instructions Indication:Insect bite Start:05-Mar-2013 Instruction Type:Provider Instructions for Treatment Patient Instructions Indication:Gastroesophageal reflux disease without esophagitis Start:27-Apr-2012 Instruction Type:Provider Instructions for Treatment [facility] Work Phone: Instructions* Name Dates Details How to Access Health Informa tion Online using Patient Portal and [employer] Apps Indication:Nonsmoker Start:22-Oct-2021 Instruction Type:Patient Education Patient Instructions Indication:Nonsmoker Start:22-Oct-2021 Instruction Type:Provider Instructions for Treatment Patient Instructions Indication:Nonsmoker Start:07-May-2021 Instruction Type:Provider Instructions for Treatment How to Access Health Informa tion Online using Patient Portal and [employer] Apps Indication:Nonsmoker Start:07-May-2021 Instruction Type:Patient Education Patient Instructions Indication:BMI 36.0-36.9,adult Start:05-Nov-2020 Instruction Type:Provider Instructions for Treatment How to Access Health Informa tion Online using Patient Portal and [employer] Apps Indication:BMI 36.0-36.9,adult Start:05-Nov-2020 Instruction Type:Patient Education How to access health informa tion online Indication:BMI 36.0-36.9,adult Start:26-Mar-2020 Instruction Type:Patient Education How to access health informa tion online - Detail Indication:BMI 36.0-36.9,adult Start:26-Mar-2020 Instruction Type:Patient Education Patient Instructions Indication:BMI 36.0-36.9,adult Start:26-Mar-2020 Instruction Type:Provider Instructions for Treatment How to access health informa tion online Indication:Compliance poor (Renamed from Poor compliance) Start:16-Jan-2020 Instruction Type:Patient Education How to access health informa tion online - Detail Indication:Compliance poor (Renamed from Poor compliance) Start:16-Jan-2020 Instruction Type:Patient Education How to access health informa tion online Indication:BMI 37.0-37.9, adult Start:28-Oct-2019 Instruction Type:Patient Education How to access health informa tion online - Detail Indication:BMI 37.0-37.9, adult Start:28-Oct-2019 Instruction Type:Patient Education Patient Instructions Indication:BMI 37.0-37.9, adult Start:28-Oct-2019 Instruction Type:Provider Instructions for Treatment How to access health informa tion online Indication:Pharyngitis, acute Start:25-Oct-2019 Instruction Type:Patient Education How to access health informa tion online - Detail Indication:Pharyngitis, acute Start:25-Oct-2019 Instruction Type:Patient Education Patient Instructions Indication:Pharyngitis, acute Start:25-Oct-2019 Instruction Type:Provider Instructions for Treatment How to access health informa tion online Indication:BMI 36.0-36.9,adult Start:16-Oct-2019 Instruction Type:Patient Education How to access health informa tion online - Detail Indication:BMI 36.0-36.9,adult Start:16-Oct-2019 Instruction Type:Patient Education Patient Instructions Indication:BMI 36.0-36.9,adult Start:16-Oct-2019 Instruction Type:Provider Instructions for Treatment How to access health informa tion online Indication:BMI 36.0-36.9,adult Start:15-Jul-2019 Instruction Type:Patient Education How to access health informa tion online - Detail Indication:BMI 36.0-36.9,adult Start:15-Jul-2019 Instruction Type:Patient Education Patient Instructions Indication:BMI 36.0-36.9,adult Start:15-Jul-2019 Instruction Type:Provider Instructions for Treatment How to access health informa tion online Indication:Nonsmoker Start:23-May-2019 Instruction Type:Patient Education How to access health informa tion online - Detail Indication:Nonsmoker Start:23-May-2019 Instruction Type:Patient Education Patient Instructions Indication:Nonsmoker Start:23-May-2019 Instruction Type:Provider Instructions for Treatment How to access health informa tion online Indication:Nonsmoker Start:07-Jan-2019 Instruction Type:Patient Education How to access health informa tion online - Detail Indication:Nonsmoker Start:07-Jan-2019 Instruction Type:Patient Education How to access health informa tion online - Detail Indication:Nonsmoker Start:07-Jan-2019 Instruction Type:Patient Education Patient Instructions Indication:Nonsmoker Start:07-Jan-2019 Instruction Type:Provider Instructions for Treatment How to access health informa tion online Indication:Nonsmoker Start:27-Sep-2018 Instruction Type:Patient Education How to access health informa tion online - Detail Indication:Nonsmoker Start:27-Sep-2018 Instruction Type:Patient Education Patient Instructions Indication:Nonsmoker Start:27-Sep-2018 Instruction Type:Provider Instructions for Treatment How to access health informa tion online Indication:Nonsmoker Start:27-Aug-2018 Instruction Type:Patient Education How to access health informa tion online - Detail Indication:Nonsmoker Start:27-Aug-2018 Instruction Type:Patient Education Patient Instructions Indication:Nonsmoker Start:27-Aug-2018 Instruction Type:Provider Instructions for Treatment How to access health informa tion online Indication:Nonsmoker Start:04-May-2018 Instruction Type:Patient Education How to access health informa tion online - Detail Indication:Nonsmoker Start:04-May-2018 Instruction Type:Patient Education Patient Instructions Indication:Nonsmoker Start:04-May-2018 Instruction Type:Provider Instructions for Treatment How to access health informa tion online Indication:Body mass index 35.0-35.9, adult Start:07-Feb-2018 Instruction Type:Patient Education How to access health informa tion online - Detail Indication:Body mass index 35.0-35.9, adult Start:07-Feb-2018 Instruction Type:Patient Education Patient Instructions Indication:Body mass index 35.0-35.9, adult Start:07-Feb-2018 Instruction Type:Provider Instructions for Treatment How to access health informa tion online Indication:Nonsmoker Start:03-Aug-2017 Instruction Type:Patient Education How to access health informa tion online - Detail Indication:Nonsmoker Start:03-Aug-2017 Instruction Type:Patient Education Patient Instructions Indication:Influenza Start:03-Aug-2017 Instruction Type:Provider Instructions for Treatment How to access health informa tion online Indication:Nonsmoker Start:12-May-2017 Instruction Type:Patient Education How to access health informa tion online - Detail Indication:Nonsmoker Start:12-May-2017 Instruction Type:Patient Education Patient Instructions Indication:Nonsmoker Start:12-May-2017 Instruction Type:Provider Instructions for Treatment How to access health informa tion online Indication:Nonsmoker Start:09-Feb-2017 Instruction Type:Patient Education How to access health informa tion online - Detail Indication:Nonsmoker Start:09-Feb-2017 Instruction Type:Patient Education Patient Instructions Indication:Nonsmoker Start:09-Feb-2017 Instruction Type:Provider Instructions for Treatment How to access health informa tion online Indication:Nonsmoker Start:22-Dec-2016 Instruction Type:Patient Education How to access health informa tion online - Detail Indication:Nonsmoker Start:22-Dec-2016 Instruction Type:Patient Education Patient Instructions Indication:Nonsmoker Start:22-Dec-2016 Instruction Type:Provider Instructions for Treatment Patient Instructions Indication:Benign essential hypertension Start:28-Jul-2016 Instruction Type:Provider Instructions for Treatment How to access health informa tion online Indication:Benign essential hypertension Start:28-Jul-2016 Instruction Type:Patient Education How to access health informa tion online - Detail Indication:Benign essential hypertension Start:28-Jul-2016 Instruction Type:Patient Education How to access health informa tion online Indication:Nonsmoker Start:05-Jul-2016 Instruction Type:Patient Education How to access health informa tion online - Detail Indication:Nonsmoker Start:05-Jul-2016 Instruction Type:Patient Education Patient Instructions Indication:Nonsmoker Start:05-Jul-2016 Instruction Type:Provider Instructions for Treatment How to access health informa tion online Indication:Annual physical exam Start:25-Feb-2016 Instruction Type:Patient Education How to access health informa tion online - Detail Indication:Annual physical exam Start:25-Feb-2016 Instruction Type:Patient Education Patient Instructions Indication:Annual physical exam Start:25-Feb-2016 Instruction Type:Provider Instructions for Treatment How to access health informa tion online Indication:Mixed hyperlipidemia Start:27-Nov-2015 Instruction Type:Patient Education How to access health informa tion online - Detail Indication:Mixed hyperlipidemia Start:27-Nov-2015 Instruction Type:Patient Education Patient Instructions Indication:Mixed hyperlipidemia Start:27-Nov-2015 Instruction Type:Provider Instructions for Treatment How to access health informa tion online Indication:Gastroesophageal reflux disease without esophagitis Start:29-May-2015 Instruction Type:Patient Education How to access health informa tion online - Detail Indication:Gastroesophageal reflux disease without esophagitis Start:29-May-2015 Instruction Type:Patient Education Patient Instructions Indication:Gastroesophageal reflux disease without esophagitis Start:29-May-2015 Instruction Type:Provider Instructions for Treatment Patient Instructions Indication:Other allergic rhinitis Start:27-Jan-2015 Instruction Type:Provider Instructions for Treatment Patient Instructions Indication:Benign essential hypertension Start:07-Oct-2014 Instruction Type:Provider Instructions for Treatment How to access health informa tion online Indication:Abdominal pain, acute, right upper quadrant Start:29-Aug-2014 Instruction Type:Patient Education How to access health informa tion online - Detail Indication:Abdominal pain, acute, right upper quadrant Start:29-Aug-2014 Instruction Type:Patient Education Patient Instructions Indication:Abdominal pain, acute, right upper quadrant Start:29-Aug-2014 Instruction Type:Provider Instructions for Treatment Patient Instructions Indication:Abdominal pain, acute, right upper quadrant Start:26-Aug-2014 Instruction Type:Provider Instructions for Treatment Patient Instructions Indication:Knee pain Start:24-Dec-2013 Instruction Type:Provider Instructions for Treatment Patient Instructions Indication:Benign essential hypertension Start:22-May-2013 Instruction Type:Provider Instructions for Treatment Patient Instructions Indication:Back pain Start:26-Apr-2013 Instruction Type:Provider Instructions for Treatment Patient Instructions Indication:Insect bite Start:05-Mar-2013 Instruction Type:Provider Instructions for Treatment Patient Instructions Indication:Gastroesophageal reflux disease without esophagitis Start:27-Apr-2012 Instruction Type:Provider Instructions for Treatment [facility]; [facility] Work Phone: Instructions* Name Dates Details How to Access Health Informa tion Online using Patient Portal and [employer] Apps Indication:Nonsmoker Start:22-Oct-2021 Instruction Type:Patient Education Patient Instructions Indication:Nonsmoker Start:22-Oct-2021 Instruction Type:Provider Instructions for Treatment Patient Instructions Indication:Nonsmoker Start:07-May-2021 Instruction Type:Provider Instructions for Treatment How to Access Health Informa tion Online using Patient Portal and [employer] Apps Indication:Nonsmoker Start:07-May-2021 Instruction Type:Patient Education Patient Instructions Indication:BMI 36.0-36.9,adult Start:05-Nov-2020 Instruction Type:Provider Instructions for Treatment How to Access Health Informa tion Online using Patient Portal and [employer] Apps Indication:BMI 36.0-36.9,adult Start:05-Nov-2020 Instruction Type:Patient Education How to access health informa tion online Indication:BMI 36.0-36.9,adult Start:26-Mar-2020 Instruction Type:Patient Education How to access health informa tion online - Detail Indication:BMI 36.0-36.9,adult Start:26-Mar-2020 Instruction Type:Patient Education Patient Instructions Indication:BMI 36.0-36.9,adult Start:26-Mar-2020 Instruction Type:Provider Instructions for Treatment How to access health informa tion online Indication:Compliance poor (Renamed from Poor compliance) Start:16-Jan-2020 Instruction Type:Patient Education How to access health informa tion online - Detail Indication:Compliance poor (Renamed from Poor compliance) Start:16-Jan-2020 Instruction Type:Patient Education How to access health informa tion online Indication:BMI 37.0-37.9, adult Start:28-Oct-2019 Instruction Type:Patient Education How to access health informa tion online - Detail Indication:BMI 37.0-37.9, adult Start:28-Oct-2019 Instruction Type:Patient Education Patient Instructions Indication:BMI 37.0-37.9, adult Start:28-Oct-2019 Instruction Type:Provider Instructions for Treatment How to access health informa tion online Indication:Pharyngitis, acute Start:25-Oct-2019 Instruction Type:Patient Education How to access health informa tion online - Detail Indication:Pharyngitis, acute Start:25-Oct-2019 Instruction Type:Patient Education Patient Instructions Indication:Pharyngitis, acute Start:25-Oct-2019 Instruction Type:Provider Instructions for Treatment How to access health informa tion online Indication:BMI 36.0-36.9,adult Start:16-Oct-2019 Instruction Type:Patient Education How to access health informa tion online - Detail Indication:BMI 36.0-36.9,adult Start:16-Oct-2019 Instruction Type:Patient Education Patient Instructions Indication:BMI 36.0-36.9,adult Start:16-Oct-2019 Instruction Type:Provider Instructions for Treatment How to access health informa tion online Indication:BMI 36.0-36.9,adult Start:15-Jul-2019 Instruction Type:Patient Education How to access health informa tion online - Detail Indication:BMI 36.0-36.9,adult Start:15-Jul-2019 Instruction Type:Patient Education Patient Instructions Indication:BMI 36.0-36.9,adult Start:15-Jul-2019 Instruction Type:Provider Instructions for Treatment How to access health informa tion online Indication:Nonsmoker Start:23-May-2019 Instruction Type:Patient Education How to access health informa tion online - Detail Indication:Nonsmoker Start:23-May-2019 Instruction Type:Patient Education Patient Instructions Indication:Nonsmoker Start:23-May-2019 Instruction Type:Provider Instructions for Treatment How to access health informa tion online Indication:Nonsmoker Start:07-Jan-2019 Instruction Type:Patient Education How to access health informa tion online - Detail Indication:Nonsmoker Start:07-Jan-2019 Instruction Type:Patient Education How to access health informa tion online - Detail Indication:Nonsmoker Start:07-Jan-2019 Instruction Type:Patient Education Patient Instructions Indication:Nonsmoker Start:07-Jan-2019 Instruction Type:Provider Instructions for Treatment How to access health informa tion online Indication:Nonsmoker Start:27-Sep-2018 Instruction Type:Patient Education How to access health informa tion online - Detail Indication:Nonsmoker Start:27-Sep-2018 Instruction Type:Patient Education Patient Instructions Indication:Nonsmoker Start:27-Sep-2018 Instruction Type:Provider Instructions for Treatment How to access health informa tion online Indication:Nonsmoker Start:27-Aug-2018 Instruction Type:Patient Education How to access health informa tion online - Detail Indication:Nonsmoker Start:27-Aug-2018 Instruction Type:Patient Education Patient Instructions Indication:Nonsmoker Start:27-Aug-2018 Instruction Type:Provider Instructions for Treatment How to access health informa tion online Indication:Nonsmoker Start:04-May-2018 Instruction Type:Patient Education How to access health informa tion online - Detail Indication:Nonsmoker Start:04-May-2018 Instruction Type:Patient Education Patient Instructions Indication:Nonsmoker Start:04-May-2018 Instruction Type:Provider Instructions for Treatment How to access health informa tion online Indication:Body mass index 35.0-35.9, adult Start:07-Feb-2018 Instruction Type:Patient Education How to access health informa tion online - Detail Indication:Body mass index 35.0-35.9, adult Start:07-Feb-2018 Instruction Type:Patient Education Patient Instructions Indication:Body mass index 35.0-35.9, adult Start:07-Feb-2018 Instruction Type:Provider Instructions for Treatment How to access health informa tion online Indication:Nonsmoker Start:03-Aug-2017 Instruction Type:Patient Education How to access health informa tion online - Detail Indication:Nonsmoker Start:03-Aug-2017 Instruction Type:Patient Education Patient Instructions Indication:Influenza Start:03-Aug-2017 Instruction Type:Provider Instructions for Treatment How to access health informa tion online Indication:Nonsmoker Start:12-May-2017 Instruction Type:Patient Education How to access health informa tion online - Detail Indication:Nonsmoker Start:12-May-2017 Instruction Type:Patient Education Patient Instructions Indication:Nonsmoker Start:12-May-2017 Instruction Type:Provider Instructions for Treatment How to access health informa tion online Indication:Nonsmoker Start:09-Feb-2017 Instruction Type:Patient Education How to access health informa tion online - Detail Indication:Nonsmoker Start:09-Feb-2017 Instruction Type:Patient Education Patient Instructions Indication:Nonsmoker Start:09-Feb-2017 Instruction Type:Provider Instructions for Treatment How to access health informa tion online Indication:Nonsmoker Start:22-Dec-2016 Instruction Type:Patient Education How to access health informa tion online - Detail Indication:Nonsmoker Start:22-Dec-2016 Instruction Type:Patient Education Patient Instructions Indication:Nonsmoker Start:22-Dec-2016 Instruction Type:Provider Instructions for Treatment Patient Instructions Indication:Benign essential hypertension Start:28-Jul-2016 Instruction Type:Provider Instructions for Treatment How to access health informa tion online Indication:Benign essential hypertension Start:28-Jul-2016 Instruction Type:Patient Education How to access health informa tion online - Detail Indication:Benign essential hypertension Start:28-Jul-2016 Instruction Type:Patient Education How to access health informa tion online Indication:Nonsmoker Start:05-Jul-2016 Instruction Type:Patient Education How to access health informa tion online - Detail Indication:Nonsmoker Start:05-Jul-2016 Instruction Type:Patient Education Patient Instructions Indication:Nonsmoker Start:05-Jul-2016 Instruction Type:Provider Instructions for Treatment How to access health informa tion online Indication:Annual physical exam Start:25-Feb-2016 Instruction Type:Patient Education How to access health informa tion online - Detail Indication:Annual physical exam Start:25-Feb-2016 Instruction Type:Patient Education Patient Instructions Indication:Annual physical exam Start:25-Feb-2016 Instruction Type:Provider Instructions for Treatment How to access health informa tion online Indication:Mixed hyperlipidemia Start:27-Nov-2015 Instruction Type:Patient Education How to access health informa tion online - Detail Indication:Mixed hyperlipidemia Start:27-Nov-2015 Instruction Type:Patient Education Patient Instructions Indication:Mixed hyperlipidemia Start:27-Nov-2015 Instruction Type:Provider Instructions for Treatment How to access health informa tion online Indication:Gastroesophageal reflux disease without esophagitis Start:29-May-2015 Instruction Type:Patient Education How to access health informa tion online - Detail Indication:Gastroesophageal reflux disease without esophagitis Start:29-May-2015 Instruction Type:Patient Education Patient Instructions Indication:Gastroesophageal reflux disease without esophagitis Start:29-May-2015 Instruction Type:Provider Instructions for Treatment Patient Instructions Indication:Other allergic rhinitis Start:27-Jan-2015 Instruction Type:Provider Instructions for Treatment Patient Instructions Indication:Benign essential hypertension Start:07-Oct-2014 Instruction Type:Provider Instructions for Treatment How to access health informa tion online Indication:Abdominal pain, acute, right upper quadrant Start:29-Aug-2014 Instruction Type:Patient Education How to access health informa tion online - Detail Indication:Abdominal pain, acute, right upper quadrant Start:29-Aug-2014 Instruction Type:Patient Education Patient Instructions Indication:Abdominal pain, acute, right upper quadrant Start:29-Aug-2014 Instruction Type:Provider Instructions for Treatment Patient Instructions Indication:Abdominal pain, acute, right upper quadrant Start:26-Aug-2014 Instruction Type:Provider Instructions for Treatment Patient Instructions Indication:Knee pain Start:24-Dec-2013 Instruction Type:Provider Instructions for Treatment Patient Instructions Indication:Benign essential hypertension Start:22-May-2013 Instruction Type:Provider Instructions for Treatment Patient Instructions Indication:Back pain Start:26-Apr-2013 Instruction Type:Provider Instructions for Treatment Patient Instructions Indication:Insect bite Start:05-Mar-2013 Instruction Type:Provider Instructions for Treatment Patient Instructions Indication:Gastroesophageal reflux disease without esophagitis Start:27-Apr-2012 Instruction Type:Provider Instructions for Treatment [facility] Work Phone: Instructions* Name Dates Details How to Access Health Informa tion Online using Patient Portal and [employer] Apps Indication:Nonsmoker Start:22-Oct-2021 Instruction Type:Patient Education Patient Instructions Indication:Nonsmoker Start:22-Oct-2021 Instruction Type:Provider Instructions for Treatment Patient Instructions Indication:Nonsmoker Start:07-May-2021 Instruction Type:Provider Instructions for Treatment How to Access Health Informa tion Online using Patient Portal and [employer] Apps Indication:Nonsmoker Start:07-May-2021 Instruction Type:Patient Education Patient Instructions Indication:BMI 36.0-36.9,adult Start:05-Nov-2020 Instruction Type:Provider Instructions for Treatment How to Access Health Informa tion Online using Patient Portal and [employer] Apps Indication:BMI 36.0-36.9,adult Start:05-Nov-2020 Instruction Type:Patient Education How to access health informa tion online Indication:BMI 36.0-36.9,adult Start:26-Mar-2020 Instruction Type:Patient Education How to access health informa tion online - Detail Indication:BMI 36.0-36.9,adult Start:26-Mar-2020 Instruction Type:Patient Education Patient Instructions Indication:BMI 36.0-36.9,adult Start:26-Mar-2020 Instruction Type:Provider Instructions for Treatment How to access health informa tion online Indication:Compliance poor (Renamed from Poor compliance) Start:16-Jan-2020 Instruction Type:Patient Education How to access health informa tion online - Detail Indication:Compliance poor (Renamed from Poor compliance) Start:16-Jan-2020 Instruction Type:Patient Education How to access health informa tion online Indication:BMI 37.0-37.9, adult Start:28-Oct-2019 Instruction Type:Patient Education How to access health informa tion online - Detail Indication:BMI 37.0-37.9, adult Start:28-Oct-2019 Instruction Type:Patient Education Patient Instructions Indication:BMI 37.0-37.9, adult Start:28-Oct-2019 Instruction Type:Provider Instructions for Treatment How to access health informa tion online Indication:Pharyngitis, acute Start:25-Oct-2019 Instruction Type:Patient Education How to access health informa tion online - Detail Indication:Pharyngitis, acute Start:25-Oct-2019 Instruction Type:Patient Education Patient Instructions Indication:Pharyngitis, acute Start:25-Oct-2019 Instruction Type:Provider Instructions for Treatment How to access health informa tion online Indication:BMI 36.0-36.9,adult Start:16-Oct-2019 Instruction Type:Patient Education How to access health informa tion online - Detail Indication:BMI 36.0-36.9,adult Start:16-Oct-2019 Instruction Type:Patient Education Patient Instructions Indication:BMI 36.0-36.9,adult Start:16-Oct-2019 Instruction Type:Provider Instructions for Treatment How to access health informa tion online Indication:BMI 36.0-36.9,adult Start:15-Jul-2019 Instruction Type:Patient Education How to access health informa tion online - Detail Indication:BMI 36.0-36.9,adult Start:15-Jul-2019 Instruction Type:Patient Education Patient Instructions Indication:BMI 36.0-36.9,adult Start:15-Jul-2019 Instruction Type:Provider Instructions for Treatment How to access health informa tion online Indication:Nonsmoker Start:23-May-2019 Instruction Type:Patient Education How to access health informa tion online - Detail Indication:Nonsmoker Start:23-May-2019 Instruction Type:Patient Education Patient Instructions Indication:Nonsmoker Start:23-May-2019 Instruction Type:Provider Instructions for Treatment How to access health informa tion online Indication:Nonsmoker Start:07-Jan-2019 Instruction Type:Patient Education How to access health informa tion online - Detail Indication:Nonsmoker Start:07-Jan-2019 Instruction Type:Patient Education How to access health informa tion online - Detail Indication:Nonsmoker Start:07-Jan-2019 Instruction Type:Patient Education Patient Instructions Indication:Nonsmoker Start:07-Jan-2019 Instruction Type:Provider Instructions for Treatment How to access health informa tion online Indication:Nonsmoker Start:27-Sep-2018 Instruction Type:Patient Education How to access health informa tion online - Detail Indication:Nonsmoker Start:27-Sep-2018 Instruction Type:Patient Education Patient Instructions Indication:Nonsmoker Start:27-Sep-2018 Instruction Type:Provider Instructions for Treatment How to access health informa tion online Indication:Nonsmoker Start:27-Aug-2018 Instruction Type:Patient Education How to access health informa tion online - Detail Indication:Nonsmoker Start:27-Aug-2018 Instruction Type:Patient Education Patient Instructions Indication:Nonsmoker Start:27-Aug-2018 Instruction Type:Provider Instructions for Treatment How to access health informa tion online Indication:Nonsmoker Start:04-May-2018 Instruction Type:Patient Education How to access health informa tion online - Detail Indication:Nonsmoker Start:04-May-2018 Instruction Type:Patient Education Patient Instructions Indication:Nonsmoker Start:04-May-2018 Instruction Type:Provider Instructions for Treatment How to access health informa tion online Indication:Body mass index 35.0-35.9, adult Start:07-Feb-2018 Instruction Type:Patient Education How to access health informa tion online - Detail Indication:Body mass index 35.0-35.9, adult Start:07-Feb-2018 Instruction Type:Patient Education Patient Instructions Indication:Body mass index 35.0-35.9, adult Start:07-Feb-2018 Instruction Type:Provider Instructions for Treatment How to access health informa tion online Indication:Nonsmoker Start:03-Aug-2017 Instruction Type:Patient Education How to access health informa tion online - Detail Indication:Nonsmoker Start:03-Aug-2017 Instruction Type:Patient Education Patient Instructions Indication:Influenza Start:03-Aug-2017 Instruction Type:Provider Instructions for Treatment How to access health informa tion online Indication:Nonsmoker Start:12-May-2017 Instruction Type:Patient Education How to access health informa tion online - Detail Indication:Nonsmoker Start:12-May-2017 Instruction Type:Patient Education Patient Instructions Indication:Nonsmoker Start:12-May-2017 Instruction Type:Provider Instructions for Treatment How to access health informa tion online Indication:Nonsmoker Start:09-Feb-2017 Instruction Type:Patient Education How to access health informa tion online - Detail Indication:Nonsmoker Start:09-Feb-2017 Instruction Type:Patient Education Patient Instructions Indication:Nonsmoker Start:09-Feb-2017 Instruction Type:Provider Instructions for Treatment How to access health informa tion online Indication:Nonsmoker Start:22-Dec-2016 Instruction Type:Patient Education How to access health informa tion online - Detail Indication:Nonsmoker Start:22-Dec-2016 Instruction Type:Patient Education Patient Instructions Indication:Nonsmoker Start:22-Dec-2016 Instruction Type:Provider Instructions for Treatment Patient Instructions Indication:Benign essential hypertension Start:28-Jul-2016 Instruction Type:Provider Instructions for Treatment How to access health informa tion online Indication:Benign essential hypertension Start:28-Jul-2016 Instruction Type:Patient Education How to access health informa tion online - Detail Indication:Benign essential hypertension Start:28-Jul-2016 Instruction Type:Patient Education How to access health informa tion online Indication:Nonsmoker Start:05-Jul-2016 Instruction Type:Patient Education How to access health informa tion online - Detail Indication:Nonsmoker Start:05-Jul-2016 Instruction Type:Patient Education Patient Instructions Indication:Nonsmoker Start:05-Jul-2016 Instruction Type:Provider Instructions for Treatment How to access health informa tion online Indication:Annual physical exam Start:25-Feb-2016 Instruction Type:Patient Education How to access health informa tion online - Detail Indication:Annual physical exam Start:25-Feb-2016 Instruction Type:Patient Education Patient Instructions Indication:Annual physical exam Start:25-Feb-2016 Instruction Type:Provider Instructions for Treatment How to access health informa tion online Indication:Mixed hyperlipidemia Start:27-Nov-2015 Instruction Type:Patient Education How to access health informa tion online - Detail Indication:Mixed hyperlipidemia Start:27-Nov-2015 Instruction Type:Patient Education Patient Instructions Indication:Mixed hyperlipidemia Start:27-Nov-2015 Instruction Type:Provider Instructions for Treatment How to access health informa tion online Indication:Gastroesophageal reflux disease without esophagitis Start:29-May-2015 Instruction Type:Patient Education How to access health informa tion online - Detail Indication:Gastroesophageal reflux disease without esophagitis Start:29-May-2015 Instruction Type:Patient Education Patient Instructions Indication:Gastroesophageal reflux disease without esophagitis Start:29-May-2015 Instruction Type:Provider Instructions for Treatment Patient Instructions Indication:Other allergic rhinitis Start:27-Jan-2015 Instruction Type:Provider Instructions for Treatment Patient Instructions Indication:Benign essential hypertension Start:07-Oct-2014 Instruction Type:Provider Instructions for Treatment How to access health informa tion online Indication:Abdominal pain, acute, right upper quadrant Start:29-Aug-2014 Instruction Type:Patient Education How to access health informa tion online - Detail Indication:Abdominal pain, acute, right upper quadrant Start:29-Aug-2014 Instruction Type:Patient Education Patient Instructions Indication:Abdominal pain, acute, right upper quadrant Start:29-Aug-2014 Instruction Type:Provider Instructions for Treatment Patient Instructions Indication:Abdominal pain, acute, right upper quadrant Start:26-Aug-2014 Instruction Type:Provider Instructions for Treatment Patient Instructions Indication:Knee pain Start:24-Dec-2013 Instruction Type:Provider Instructions for Treatment Patient Instructions Indication:Benign essential hypertension Start:22-May-2013 Instruction Type:Provider Instructions for Treatment Patient Instructions Indication:Back pain Start:26-Apr-2013 Instruction Type:Provider Instructions for Treatment Patient Instructions Indication:Insect bite Start:05-Mar-2013 Instruction Type:Provider Instructions for Treatment Patient Instructions Indication:Gastroesophageal reflux disease without esophagitis Start:27-Apr-2012 Instruction Type:Provider Instructions for Treatment [facility]; [facility] Work Phone: Instructions* Name Dates Details Patient Instructions Indication:Nonsmoker Start:03-Jun-2022 Instruction Type:Provider Instructions for Treatment How to Access Health Informa tion Online using Patient Portal and [employer]rd [employer] Apps Indication:Nonsmoker Start:03-Jun-2022 Instruction Type:Patient Education How to Access Health Informa tion Online using Patient Portal and [employer]rd [employer] Apps Indication:Nonsmoker Start:22-Oct-2021 Instruction Type:Patient Education Patient Instructions Indication:Nonsmoker Start:22-Oct-2021 Instruction Type:Provider Instructions for Treatment Patient Instructions Indication:Nonsmoker Start:07-May-2021 Instruction Type:Provider Instructions for Treatment How to Access Health Informa tion Online using Patient Portal and [employer]rd [employer] Apps Indication:Nonsmoker Start:07-May-2021 Instruction Type:Patient Education Patient Instructions Indication:BMI 36.0-36.9,adult Start:05-Nov-2020 Instruction Type:Provider Instructions for Treatment How to Access Health Informa tion Online using Patient Portal and [employer] Apps Indication:BMI 36.0-36.9,adult Start:05-Nov-2020 Instruction Type:Patient Education How to access health informa tion online Indication:BMI 36.0-36.9,adult Start:26-Mar-2020 Instruction Type:Patient Education How to access health informa tion online - Detail Indication:BMI 36.0-36.9,adult Start:26-Mar-2020 Instruction Type:Patient Education Patient Instructions Indication:BMI 36.0-36.9,adult Start:26-Mar-2020 Instruction Type:Provider Instructions for Treatment How to access health informa tion online Indication:Compliance poor (Renamed from Poor compliance) Start:16-Jan-2020 Instruction Type:Patient Education How to access health informa tion online - Detail Indication:Compliance poor (Renamed from Poor compliance) Start:16-Jan-2020 Instruction Type:Patient Education How to access health informa tion online Indication:BMI 37.0-37.9, adult Start:28-Oct-2019 Instruction Type:Patient Education How to access health informa tion online - Detail Indication:BMI 37.0-37.9, adult Start:28-Oct-2019 Instruction Type:Patient Education Patient Instructions Indication:BMI 37.0-37.9, adult Start:28-Oct-2019 Instruction Type:Provider Instructions for Treatment How to access health informa tion online Indication:Pharyngitis, acute Start:25-Oct-2019 Instruction Type:Patient Education How to access health informa tion online - Detail Indication:Pharyngitis, acute Start:25-Oct-2019 Instruction Type:Patient Education Patient Instructions Indication:Pharyngitis, acute Start:25-Oct-2019 Instruction Type:Provider Instructions for Treatment How to access health informa tion online Indication:BMI 36.0-36.9,adult Start:16-Oct-2019 Instruction Type:Patient Education How to access health informa tion online - Detail Indication:BMI 36.0-36.9,adult Start:16-Oct-2019 Instruction Type:Patient Education Patient Instructions Indication:BMI 36.0-36.9,adult Start:16-Oct-2019 Instruction Type:Provider Instructions for Treatment How to access health informa tion online Indication:BMI 36.0-36.9,adult Start:15-Jul-2019 Instruction Type:Patient Education How to access health informa tion online - Detail Indication:BMI 36.0-36.9,adult Start:15-Jul-2019 Instruction Type:Patient Education Patient Instructions Indication:BMI 36.0-36.9,adult Start:15-Jul-2019 Instruction Type:Provider Instructions for Treatment How to access health informa tion online Indication:Nonsmoker Start:23-May-2019 Instruction Type:Patient Education How to access health informa tion online - Detail Indication:Nonsmoker Start:23-May-2019 Instruction Type:Patient Education Patient Instructions Indication:Nonsmoker Start:23-May-2019 Instruction Type:Provider Instructions for Treatment How to access health informa tion online Indication:Nonsmoker Start:07-Jan-2019 Instruction Type:Patient Education How to access health informa tion online - Detail Indication:Nonsmoker Start:07-Jan-2019 Instruction Type:Patient Education How to access health informa tion online - Detail Indication:Nonsmoker Start:07-Jan-2019 Instruction Type:Patient Education Patient Instructions Indication:Nonsmoker Start:07-Jan-2019 Instruction Type:Provider Instructions for Treatment How to access health informa tion online Indication:Nonsmoker Start:27-Sep-2018 Instruction Type:Patient Education How to access health informa tion online - Detail Indication:Nonsmoker Start:27-Sep-2018 Instruction Type:Patient Education Patient Instructions Indication:Nonsmoker Start:27-Sep-2018 Instruction Type:Provider Instructions for Treatment How to access health informa tion online Indication:Nonsmoker Start:27-Aug-2018 Instruction Type:Patient Education How to access health informa tion online - Detail Indication:Nonsmoker Start:27-Aug-2018 Instruction Type:Patient Education Patient Instructions Indication:Nonsmoker Start:27-Aug-2018 Instruction Type:Provider Instructions for Treatment How to access health informa tion online Indication:Nonsmoker Start:04-May-2018 Instruction Type:Patient Education How to access health informa tion online - Detail Indication:Nonsmoker Start:04-May-2018 Instruction Type:Patient Education Patient Instructions Indication:Nonsmoker Start:04-May-2018 Instruction Type:Provider Instructions for Treatment How to access health informa tion online Indication:Body mass index 35.0-35.9, adult Start:07-Feb-2018 Instruction Type:Patient Education How to access health informa tion online - Detail Indication:Body mass index 35.0-35.9, adult Start:07-Feb-2018 Instruction Type:Patient Education Patient Instructions Indication:Body mass index 35.0-35.9, adult Start:07-Feb-2018 Instruction Type:Provider Instructions for Treatment How to access health informa tion online Indication:Nonsmoker Start:03-Aug-2017 Instruction Type:Patient Education How to access health informa tion online - Detail Indication:Nonsmoker Start:03-Aug-2017 Instruction Type:Patient Education Patient Instructions Indication:Influenza Start:03-Aug-2017 Instruction Type:Provider Instructions for Treatment How to access health informa tion online Indication:Nonsmoker Start:12-May-2017 Instruction Type:Patient Education How to access health informa tion online - Detail Indication:Nonsmoker Start:12-May-2017 Instruction Type:Patient Education Patient Instructions Indication:Nonsmoker Start:12-May-2017 Instruction Type:Provider Instructions for Treatment How to access health informa tion online Indication:Nonsmoker Start:09-Feb-2017 Instruction Type:Patient Education How to access health informa tion online - Detail Indication:Nonsmoker Start:09-Feb-2017 Instruction Type:Patient Education Patient Instructions Indication:Nonsmoker Start:09-Feb-2017 Instruction Type:Provider Instructions for Treatment How to access health informa tion online Indication:Nonsmoker Start:22-Dec-2016 Instruction Type:Patient Education How to access health informa tion online - Detail Indication:Nonsmoker Start:22-Dec-2016 Instruction Type:Patient Education Patient Instructions Indication:Nonsmoker Start:22-Dec-2016 Instruction Type:Provider Instructions for Treatment Patient Instructions Indication:Benign essential hypertension Start:28-Jul-2016 Instruction Type:Provider Instructions for Treatment How to access health informa tion online Indication:Benign essential hypertension Start:28-Jul-2016 Instruction Type:Patient Education How to access health informa tion online - Detail Indication:Benign essential hypertension Start:28-Jul-2016 Instruction Type:Patient Education How to access health informa tion online Indication:Nonsmoker Start:05-Jul-2016 Instruction Type:Patient Education How to access health informa tion online - Detail Indication:Nonsmoker Start:05-Jul-2016 Instruction Type:Patient Education Patient Instructions Indication:Nonsmoker Start:05-Jul-2016 Instruction Type:Provider Instructions for Treatment How to access health informa tion online Indication:Annual physical exam Start:25-Feb-2016 Instruction Type:Patient Education How to access health informa tion online - Detail Indication:Annual physical exam Start:25-Feb-2016 Instruction Type:Patient Education Patient Instructions Indication:Annual physical exam Start:25-Feb-2016 Instruction Type:Provider Instructions for Treatment How to access health informa tion online Indication:Mixed hyperlipidemia Start:27-Nov-2015 Instruction Type:Patient Education How to access health informa tion online - Detail Indication:Mixed hyperlipidemia Start:27-Nov-2015 Instruction Type:Patient Education Patient Instructions Indication:Mixed hyperlipidemia Start:27-Nov-2015 Instruction Type:Provider Instructions for Treatment How to access health informa tion online Indication:Gastroesophageal reflux disease without esophagitis Start:29-May-2015 Instruction Type:Patient Education How to access health informa tion online - Detail Indication:Gastroesophageal reflux disease without esophagitis Start:29-May-2015 Instruction Type:Patient Education Patient Instructions Indication:Gastroesophageal reflux disease without esophagitis Start:29-May-2015 Instruction Type:Provider Instructions for Treatment Patient Instructions Indication:Other allergic rhinitis Start:27-Jan-2015 Instruction Type:Provider Instructions for Treatment Patient Instructions Indication:Benign essential hypertension Start:07-Oct-2014 Instruction Type:Provider Instructions for Treatment How to access health informa tion online Indication:Abdominal pain, acute, right upper quadrant Start:29-Aug-2014 Instruction Type:Patient Education How to access health informa tion online - Detail Indication:Abdominal pain, acute, right upper quadrant Start:29-Aug-2014 Instruction Type:Patient Education Patient Instructions Indication:Abdominal pain, acute, right upper quadrant Start:29-Aug-2014 Instruction Type:Provider Instructions for Treatment Patient Instructions Indication:Abdominal pain, acute, right upper quadrant Start:26-Aug-2014 Instruction Type:Provider Instructions for Treatment Patient Instructions Indication:Knee pain Start:24-Dec-2013 Instruction Type:Provider Instructions for Treatment Patient Instructions Indication:Benign essential hypertension Start:22-May-2013 Instruction Type:Provider Instructions for Treatment Patient Instructions Indication:Back pain Start:26-Apr-2013 Instruction Type:Provider Instructions for Treatment Patient Instructions Indication:Insect bite Start:05-Mar-2013 Instruction Type:Provider Instructions for Treatment Patient Instructions Indication:Gastroesophageal reflux disease without esophagitis Start:27-Apr-2012 Instruction Type:Provider Instructions for Treatment [facility]; [facility] Work Phone: Instructions* Name Dates Details Patient Instructions Indication:Nonsmoker Start:03-Jun-2022 Instruction Type:Provider Instructions for Treatment How to Access Health Informa tion Online using Patient Portal and [employer]rd [employer] Apps Indication:Nonsmoker Start:03-Jun-2022 Instruction Type:Patient Education How to Access Health Informa tion Online using Patient Portal and [employer] Apps Indication:Nonsmoker Start:22-Oct-2021 Instruction Type:Patient Education Patient Instructions Indication:Nonsmoker Start:22-Oct-2021 Instruction Type:Provider Instructions for Treatment Patient Instructions Indication:Nonsmoker Start:07-May-2021 Instruction Type:Provider Instructions for Treatment How to Access Health Informa tion Online using Patient Portal and [employer]rd [employer] Apps Indication:Nonsmoker Start:07-May-2021 Instruction Type:Patient Education Patient Instructions Indication:BMI 36.0-36.9,adult Start:05-Nov-2020 Instruction Type:Provider Instructions for Treatment How to Access Health Informa tion Online using Patient Portal and [employer]rd [employer] Apps Indication:BMI 36.0-36.9,adult Start:05-Nov-2020 Instruction Type:Patient Education How to access health informa tion online Indication:BMI 36.0-36.9,adult Start:26-Mar-2020 Instruction Type:Patient Education How to access health informa tion online - Detail Indication:BMI 36.0-36.9,adult Start:26-Mar-2020 Instruction Type:Patient Education Patient Instructions Indication:BMI 36.0-36.9,adult Start:26-Mar-2020 Instruction Type:Provider Instructions for Treatment How to access health informa tion online Indication:Compliance poor (Renamed from Poor compliance) Start:16-Jan-2020 Instruction Type:Patient Education How to access health informa tion online - Detail Indication:Compliance poor (Renamed from Poor compliance) Start:16-Jan-2020 Instruction Type:Patient Education How to access health informa tion online Indication:BMI 37.0-37.9, adult Start:28-Oct-2019 Instruction Type:Patient Education How to access health informa tion online - Detail Indication:BMI 37.0-37.9, adult Start:28-Oct-2019 Instruction Type:Patient Education Patient Instructions Indication:BMI 37.0-37.9, adult Start:28-Oct-2019 Instruction Type:Provider Instructions for Treatment How to access health informa tion online Indication:Pharyngitis, acute Start:25-Oct-2019 Instruction Type:Patient Education How to access health informa tion online - Detail Indication:Pharyngitis, acute Start:25-Oct-2019 Instruction Type:Patient Education Patient Instructions Indication:Pharyngitis, acute Start:25-Oct-2019 Instruction Type:Provider Instructions for Treatment How to access health informa tion online Indication:BMI 36.0-36.9,adult Start:16-Oct-2019 Instruction Type:Patient Education How to access health informa tion online - Detail Indication:BMI 36.0-36.9,adult Start:16-Oct-2019 Instruction Type:Patient Education Patient Instructions Indication:BMI 36.0-36.9,adult Start:16-Oct-2019 Instruction Type:Provider Instructions for Treatment How to access health informa tion online Indication:BMI 36.0-36.9,adult Start:15-Jul-2019 Instruction Type:Patient Education How to access health informa tion online - Detail Indication:BMI 36.0-36.9,adult Start:15-Jul-2019 Instruction Type:Patient Education Patient Instructions Indication:BMI 36.0-36.9,adult Start:15-Jul-2019 Instruction Type:Provider Instructions for Treatment How to access health informa tion online Indication:Nonsmoker Start:23-May-2019 Instruction Type:Patient Education How to access health informa tion online - Detail Indication:Nonsmoker Start:23-May-2019 Instruction Type:Patient Education Patient Instructions Indication:Nonsmoker Start:23-May-2019 Instruction Type:Provider Instructions for Treatment How to access health informa tion online Indication:Nonsmoker Start:07-Jan-2019 Instruction Type:Patient Education How to access health informa tion online - Detail Indication:Nonsmoker Start:07-Jan-2019 Instruction Type:Patient Education How to access health informa tion online - Detail Indication:Nonsmoker Start:07-Jan-2019 Instruction Type:Patient Education Patient Instructions Indication:Nonsmoker Start:07-Jan-2019 Instruction Type:Provider Instructions for Treatment How to access health informa tion online Indication:Nonsmoker Start:27-Sep-2018 Instruction Type:Patient Education How to access health informa tion online - Detail Indication:Nonsmoker Start:27-Sep-2018 Instruction Type:Patient Education Patient Instructions Indication:Nonsmoker Start:27-Sep-2018 Instruction Type:Provider Instructions for Treatment How to access health informa tion online Indication:Nonsmoker Start:27-Aug-2018 Instruction Type:Patient Education How to access health informa tion online - Detail Indication:Nonsmoker Start:27-Aug-2018 Instruction Type:Patient Education Patient Instructions Indication:Nonsmoker Start:27-Aug-2018 Instruction Type:Provider Instructions for Treatment How to access health informa tion online Indication:Nonsmoker Start:04-May-2018 Instruction Type:Patient Education How to access health informa tion online - Detail Indication:Nonsmoker Start:04-May-2018 Instruction Type:Patient Education Patient Instructions Indication:Nonsmoker Start:04-May-2018 Instruction Type:Provider Instructions for Treatment How to access health informa tion online Indication:Body mass index 35.0-35.9, adult Start:07-Feb-2018 Instruction Type:Patient Education How to access health informa tion online - Detail Indication:Body mass index 35.0-35.9, adult Start:07-Feb-2018 Instruction Type:Patient Education Patient Instructions Indication:Body mass index 35.0-35.9, adult Start:07-Feb-2018 Instruction Type:Provider Instructions for Treatment How to access health informa tion online Indication:Nonsmoker Start:03-Aug-2017 Instruction Type:Patient Education How to access health informa tion online - Detail Indication:Nonsmoker Start:03-Aug-2017 Instruction Type:Patient Education Patient Instructions Indication:Influenza Start:03-Aug-2017 Instruction Type:Provider Instructions for Treatment How to access health informa tion online Indication:Nonsmoker Start:12-May-2017 Instruction Type:Patient Education How to access health informa tion online - Detail Indication:Nonsmoker Start:12-May-2017 Instruction Type:Patient Education Patient Instructions Indication:Nonsmoker Start:12-May-2017 Instruction Type:Provider Instructions for Treatment How to access health informa tion online Indication:Nonsmoker Start:09-Feb-2017 Instruction Type:Patient Education How to access health informa tion online - Detail Indication:Nonsmoker Start:09-Feb-2017 Instruction Type:Patient Education Patient Instructions Indication:Nonsmoker Start:09-Feb-2017 Instruction Type:Provider Instructions for Treatment How to access health informa tion online Indication:Nonsmoker Start:22-Dec-2016 Instruction Type:Patient Education How to access health informa tion online - Detail Indication:Nonsmoker Start:22-Dec-2016 Instruction Type:Patient Education Patient Instructions Indication:Nonsmoker Start:22-Dec-2016 Instruction Type:Provider Instructions for Treatment Patient Instructions Indication:Benign essential hypertension Start:28-Jul-2016 Instruction Type:Provider Instructions for Treatment How to access health informa tion online Indication:Benign essential hypertension Start:28-Jul-2016 Instruction Type:Patient Education How to access health informa tion online - Detail Indication:Benign essential hypertension Start:28-Jul-2016 Instruction Type:Patient Education How to access health informa tion online Indication:Nonsmoker Start:05-Jul-2016 Instruction Type:Patient Education How to access health informa tion online - Detail Indication:Nonsmoker Start:05-Jul-2016 Instruction Type:Patient Education Patient Instructions Indication:Nonsmoker Start:05-Jul-2016 Instruction Type:Provider Instructions for Treatment How to access health informa tion online Indication:Annual physical exam Start:25-Feb-2016 Instruction Type:Patient Education How to access health informa tion online - Detail Indication:Annual physical exam Start:25-Feb-2016 Instruction Type:Patient Education Patient Instructions Indication:Annual physical exam Start:25-Feb-2016 Instruction Type:Provider Instructions for Treatment How to access health informa tion online Indication:Mixed hyperlipidemia Start:27-Nov-2015 Instruction Type:Patient Education How to access health informa tion online - Detail Indication:Mixed hyperlipidemia Start:27-Nov-2015 Instruction Type:Patient Education Patient Instructions Indication:Mixed hyperlipidemia Start:27-Nov-2015 Instruction Type:Provider Instructions for Treatment How to access health informa tion online Indication:Gastroesophageal reflux disease without esophagitis Start:29-May-2015 Instruction Type:Patient Education How to access health informa tion online - Detail Indication:Gastroesophageal reflux disease without esophagitis Start:29-May-2015 Instruction Type:Patient Education Patient Instructions Indication:Gastroesophageal reflux disease without esophagitis Start:29-May-2015 Instruction Type:Provider Instructions for Treatment Patient Instructions Indication:Other allergic rhinitis Start:27-Jan-2015 Instruction Type:Provider Instructions for Treatment Patient Instructions Indication:Benign essential hypertension Start:07-Oct-2014 Instruction Type:Provider Instructions for Treatment How to access health informa tion online Indication:Abdominal pain, acute, right upper quadrant Start:29-Aug-2014 Instruction Type:Patient Education How to access health informa tion online - Detail Indication:Abdominal pain, acute, right upper quadrant Start:29-Aug-2014 Instruction Type:Patient Education Patient Instructions Indication:Abdominal pain, acute, right upper quadrant Start:29-Aug-2014 Instruction Type:Provider Instructions for Treatment Patient Instructions Indication:Abdominal pain, acute, right upper quadrant Start:26-Aug-2014 Instruction Type:Provider Instructions for Treatment Patient Instructions Indication:Knee pain Start:24-Dec-2013 Instruction Type:Provider Instructions for Treatment Patient Instructions Indication:Benign essential hypertension Start:22-May-2013 Instruction Type:Provider Instructions for Treatment Patient Instructions Indication:Back pain Start:26-Apr-2013 Instruction Type:Provider Instructions for Treatment Patient Instructions Indication:Insect bite Start:05-Mar-2013 Instruction Type:Provider Instructions for Treatment Patient Instructions Indication:Gastroesophageal reflux disease without esophagitis Start:27-Apr-2012 Instruction Type:Provider Instructions for Treatment [facility]; [facility] Work Phone: Instructions* Name Dates Details How to Access Health Informa tion Online using Patient Portal and [employer]rd [employer] Apps Indication:Benign essential hypertension Start:02-Dec-2022 Instruction Type:Patient Education Patient Instructions Indication:Benign essential hypertension Start:02-Dec-2022 Instruction Type:Provider Instructions for Treatment Patient Instructions Indication:Nonsmoker Start:03-Jun-2022 Instruction Type:Provider Instructions for Treatment How to Access Health Informa tion Online using Patient Portal and [employer]rd [employer] Apps Indication:Nonsmoker Start:03-Jun-2022 Instruction Type:Patient Education How to Access Health Informa tion Online using Patient Portal and [employer] Apps Indication:Nonsmoker Start:22-Oct-2021 Instruction Type:Patient Education Patient Instructions Indication:Nonsmoker Start:22-Oct-2021 Instruction Type:Provider Instructions for Treatment Patient Instructions Indication:Nonsmoker Start:07-May-2021 Instruction Type:Provider Instructions for Treatment How to Access Health Informa tion Online using Patient Portal and [employer] Apps Indication:Nonsmoker Start:07-May-2021 Instruction Type:Patient Education Patient Instructions Indication:BMI 36.0-36.9,adult Start:05-Nov-2020 Instruction Type:Provider Instructions for Treatment How to Access Health Informa tion Online using Patient Portal and [employer]rd [employer] Apps Indication:BMI 36.0-36.9,adult Start:05-Nov-2020 Instruction Type:Patient Education How to access health informa tion online Indication:BMI 36.0-36.9,adult Start:26-Mar-2020 Instruction Type:Patient Education How to access health informa tion online - Detail Indication:BMI 36.0-36.9,adult Start:26-Mar-2020 Instruction Type:Patient Education Patient Instructions Indication:BMI 36.0-36.9,adult Start:26-Mar-2020 Instruction Type:Provider Instructions for Treatment How to access health informa tion online Indication:Compliance poor (Renamed from Poor compliance) Start:16-Jan-2020 Instruction Type:Patient Education How to access health informa tion online - Detail Indication:Compliance poor (Renamed from Poor compliance) Start:16-Jan-2020 Instruction Type:Patient Education How to access health informa tion online Indication:BMI 37.0-37.9, adult Start:28-Oct-2019 Instruction Type:Patient Education How to access health informa tion online - Detail Indication:BMI 37.0-37.9, adult Start:28-Oct-2019 Instruction Type:Patient Education Patient Instructions Indication:BMI 37.0-37.9, adult Start:28-Oct-2019 Instruction Type:Provider Instructions for Treatment How to access health informa tion online Indication:Pharyngitis, acute Start:25-Oct-2019 Instruction Type:Patient Education How to access health informa tion online - Detail Indication:Pharyngitis, acute Start:25-Oct-2019 Instruction Type:Patient Education Patient Instructions Indication:Pharyngitis, acute Start:25-Oct-2019 Instruction Type:Provider Instructions for Treatment How to access health informa tion online Indication:BMI 36.0-36.9,adult Start:16-Oct-2019 Instruction Type:Patient Education How to access health informa tion online - Detail Indication:BMI 36.0-36.9,adult Start:16-Oct-2019 Instruction Type:Patient Education Patient Instructions Indication:BMI 36.0-36.9,adult Start:16-Oct-2019 Instruction Type:Provider Instructions for Treatment How to access health informa tion online Indication:BMI 36.0-36.9,adult Start:15-Jul-2019 Instruction Type:Patient Education How to access health informa tion online - Detail Indication:BMI 36.0-36.9,adult Start:15-Jul-2019 Instruction Type:Patient Education Patient Instructions Indication:BMI 36.0-36.9,adult Start:15-Jul-2019 Instruction Type:Provider Instructions for Treatment How to access health informa tion online Indication:Nonsmoker Start:23-May-2019 Instruction Type:Patient Education How to access health informa tion online - Detail Indication:Nonsmoker Start:23-May-2019 Instruction Type:Patient Education Patient Instructions Indication:Nonsmoker Start:23-May-2019 Instruction Type:Provider Instructions for Treatment How to access health informa tion online Indication:Nonsmoker Start:07-Jan-2019 Instruction Type:Patient Education How to access health informa tion online - Detail Indication:Nonsmoker Start:07-Jan-2019 Instruction Type:Patient Education How to access health informa tion online - Detail Indication:Nonsmoker Start:07-Jan-2019 Instruction Type:Patient Education Patient Instructions Indication:Nonsmoker Start:07-Jan-2019 Instruction Type:Provider Instructions for Treatment How to access health informa tion online Indication:Nonsmoker Start:27-Sep-2018 Instruction Type:Patient Education How to access health informa tion online - Detail Indication:Nonsmoker Start:27-Sep-2018 Instruction Type:Patient Education Patient Instructions Indication:Nonsmoker Start:27-Sep-2018 Instruction Type:Provider Instructions for Treatment How to access health informa tion online Indication:Nonsmoker Start:27-Aug-2018 Instruction Type:Patient Education How to access health informa tion online - Detail Indication:Nonsmoker Start:27-Aug-2018 Instruction Type:Patient Education Patient Instructions Indication:Nonsmoker Start:27-Aug-2018 Instruction Type:Provider Instructions for Treatment How to access health informa tion online Indication:Nonsmoker Start:04-May-2018 Instruction Type:Patient Education How to access health informa tion online - Detail Indication:Nonsmoker Start:04-May-2018 Instruction Type:Patient Education Patient Instructions Indication:Nonsmoker Start:04-May-2018 Instruction Type:Provider Instructions for Treatment How to access health informa tion online Indication:Body mass index 35.0-35.9, adult Start:07-Feb-2018 Instruction Type:Patient Education How to access health informa tion online - Detail Indication:Body mass index 35.0-35.9, adult Start:07-Feb-2018 Instruction Type:Patient Education Patient Instructions Indication:Body mass index 35.0-35.9, adult Start:07-Feb-2018 Instruction Type:Provider Instructions for Treatment How to access health informa tion online Indication:Nonsmoker Start:03-Aug-2017 Instruction Type:Patient Education How to access health informa tion online - Detail Indication:Nonsmoker Start:03-Aug-2017 Instruction Type:Patient Education Patient Instructions Indication:Influenza Start:03-Aug-2017 Instruction Type:Provider Instructions for Treatment How to access health informa tion online Indication:Nonsmoker Start:12-May-2017 Instruction Type:Patient Education How to access health informa tion online - Detail Indication:Nonsmoker Start:12-May-2017 Instruction Type:Patient Education Patient Instructions Indication:Nonsmoker Start:12-May-2017 Instruction Type:Provider Instructions for Treatment How to access health informa tion online Indication:Nonsmoker Start:09-Feb-2017 Instruction Type:Patient Education How to access health informa tion online - Detail Indication:Nonsmoker Start:09-Feb-2017 Instruction Type:Patient Education Patient Instructions Indication:Nonsmoker Start:09-Feb-2017 Instruction Type:Provider Instructions for Treatment How to access health informa tion online Indication:Nonsmoker Start:22-Dec-2016 Instruction Type:Patient Education How to access health informa tion online - Detail Indication:Nonsmoker Start:22-Dec-2016 Instruction Type:Patient Education Patient Instructions Indication:Nonsmoker Start:22-Dec-2016 Instruction Type:Provider Instructions for Treatment Patient Instructions Indication:Benign essential hypertension Start:28-Jul-2016 Instruction Type:Provider Instructions for Treatment How to access health informa tion online Indication:Benign essential hypertension Start:28-Jul-2016 Instruction Type:Patient Education How to access health informa tion online - Detail Indication:Benign essential hypertension Start:28-Jul-2016 Instruction Type:Patient Education How to access health informa tion online Indication:Nonsmoker Start:05-Jul-2016 Instruction Type:Patient Education How to access health informa tion online - Detail Indication:Nonsmoker Start:05-Jul-2016 Instruction Type:Patient Education Patient Instructions Indication:Nonsmoker Start:05-Jul-2016 Instruction Type:Provider Instructions for Treatment How to access health informa tion online Indication:Annual physical exam Start:25-Feb-2016 Instruction Type:Patient Education How to access health informa tion online - Detail Indication:Annual physical exam Start:25-Feb-2016 Instruction Type:Patient Education Patient Instructions Indication:Annual physical exam Start:25-Feb-2016 Instruction Type:Provider Instructions for Treatment How to access health informa tion online Indication:Mixed hyperlipidemia Start:27-Nov-2015 Instruction Type:Patient Education How to access health informa tion online - Detail Indication:Mixed hyperlipidemia Start:27-Nov-2015 Instruction Type:Patient Education Patient Instructions Indication:Mixed hyperlipidemia Start:27-Nov-2015 Instruction Type:Provider Instructions for Treatment How to access health informa tion online Indication:Gastroesophageal reflux disease without esophagitis Start:29-May-2015 Instruction Type:Patient Education How to access health informa tion online - Detail Indication:Gastroesophageal reflux disease without esophagitis Start:29-May-2015 Instruction Type:Patient Education Patient Instructions Indication:Gastroesophageal reflux disease without esophagitis Start:29-May-2015 Instruction Type:Provider Instructions for Treatment Patient Instructions Indication:Other allergic rhinitis Start:27-Jan-2015 Instruction Type:Provider Instructions for Treatment Patient Instructions Indication:Benign essential hypertension Start:07-Oct-2014 Instruction Type:Provider Instructions for Treatment How to access health informa tion online Indication:Abdominal pain, acute, right upper quadrant Start:29-Aug-2014 Instruction Type:Patient Education How to access health informa tion online - Detail Indication:Abdominal pain, acute, right upper quadrant Start:29-Aug-2014 Instruction Type:Patient Education Patient Instructions Indication:Abdominal pain, acute, right upper quadrant Start:29-Aug-2014 Instruction Type:Provider Instructions for Treatment Patient Instructions Indication:Abdominal pain, acute, right upper quadrant Start:26-Aug-2014 Instruction Type:Provider Instructions for Treatment Patient Instructions Indication:Knee pain Start:24-Dec-2013 Instruction Type:Provider Instructions for Treatment Patient Instructions Indication:Benign essential hypertension Start:22-May-2013 Instruction Type:Provider Instructions for Treatment Patient Instructions Indication:Back pain Start:26-Apr-2013 Instruction Type:Provider Instructions for Treatment Patient Instructions Indication:Insect bite Start:05-Mar-2013 Instruction Type:Provider Instructions for Treatment Patient Instructions Indication:Gastroesophageal reflux disease without esophagitis Start:27-Apr-2012 Instruction Type:Provider Instructions for Treatment [facility]; [facility] Work Phone: Instructions* Name Dates Details Patient Instructions Indication:BMI 39.0-39.9,adult Start:15-Dec-2022 Instruction Type:Provider Instructions for Treatment How to Access Health Informa tion Online using Patient Portal and [employer]rd [employer] Apps Indication:BMI 39.0-39.9,adult Start:15-Dec-2022 Instruction Type:Patient Education How to Access Health Informa tion Online using Patient Portal and [employer] Apps Indication:Benign essential hypertension Start:02-Dec-2022 Instruction Type:Patient Education Patient Instructions Indication:Benign essential hypertension Start:02-Dec-2022 Instruction Type:Provider Instructions for Treatment Patient Instructions Indication:Nonsmoker Start:03-Jun-2022 Instruction Type:Provider Instructions for Treatment How to Access Health Informa tion Online using Patient Portal and [employer]rd [employer] Apps Indication:Nonsmoker Start:03-Jun-2022 Instruction Type:Patient Education How to Access Health Informa tion Online using Patient Portal and [employer]rd [employer] Apps Indication:Nonsmoker Start:22-Oct-2021 Instruction Type:Patient Education Patient Instructions Indication:Nonsmoker Start:22-Oct-2021 Instruction Type:Provider Instructions for Treatment Patient Instructions Indication:Nonsmoker Start:07-May-2021 Instruction Type:Provider Instructions for Treatment How to Access Health Informa tion Online using Patient Portal and [employer]rd [employer] Apps Indication:Nonsmoker Start:07-May-2021 Instruction Type:Patient Education Patient Instructions Indication:BMI 36.0-36.9,adult Start:05-Nov-2020 Instruction Type:Provider Instructions for Treatment How to Access Health Informa tion Online using Patient Portal and [employer]rd [employer] Apps Indication:BMI 36.0-36.9,adult Start:05-Nov-2020 Instruction Type:Patient Education How to access health informa tion online Indication:BMI 36.0-36.9,adult Start:26-Mar-2020 Instruction Type:Patient Education How to access health informa tion online - Detail Indication:BMI 36.0-36.9,adult Start:26-Mar-2020 Instruction Type:Patient Education Patient Instructions Indication:BMI 36.0-36.9,adult Start:26-Mar-2020 Instruction Type:Provider Instructions for Treatment How to access health informa tion online Indication:Compliance poor (Renamed from Poor compliance) Start:16-Jan-2020 Instruction Type:Patient Education How to access health informa tion online - Detail Indication:Compliance poor (Renamed from Poor compliance) Start:16-Jan-2020 Instruction Type:Patient Education How to access health informa tion online Indication:BMI 37.0-37.9, adult Start:28-Oct-2019 Instruction Type:Patient Education How to access health informa tion online - Detail Indication:BMI 37.0-37.9, adult Start:28-Oct-2019 Instruction Type:Patient Education Patient Instructions Indication:BMI 37.0-37.9, adult Start:28-Oct-2019 Instruction Type:Provider Instructions for Treatment How to access health informa tion online Indication:Pharyngitis, acute Start:25-Oct-2019 Instruction Type:Patient Education How to access health informa tion online - Detail Indication:Pharyngitis, acute Start:25-Oct-2019 Instruction Type:Patient Education Patient Instructions Indication:Pharyngitis, acute Start:25-Oct-2019 Instruction Type:Provider Instructions for Treatment How to access health informa tion online Indication:BMI 36.0-36.9,adult Start:16-Oct-2019 Instruction Type:Patient Education How to access health informa tion online - Detail Indication:BMI 36.0-36.9,adult Start:16-Oct-2019 Instruction Type:Patient Education Patient Instructions Indication:BMI 36.0-36.9,adult Start:16-Oct-2019 Instruction Type:Provider Instructions for Treatment How to access health informa tion online Indication:BMI 36.0-36.9,adult Start:15-Jul-2019 Instruction Type:Patient Education How to access health informa tion online - Detail Indication:BMI 36.0-36.9,adult Start:15-Jul-2019 Instruction Type:Patient Education Patient Instructions Indication:BMI 36.0-36.9,adult Start:15-Jul-2019 Instruction Type:Provider Instructions for Treatment How to access health informa tion online Indication:Nonsmoker Start:23-May-2019 Instruction Type:Patient Education How to access health informa tion online - Detail Indication:Nonsmoker Start:23-May-2019 Instruction Type:Patient Education Patient Instructions Indication:Nonsmoker Start:23-May-2019 Instruction Type:Provider Instructions for Treatment How to access health informa tion online Indication:Nonsmoker Start:07-Jan-2019 Instruction Type:Patient Education How to access health informa tion online - Detail Indication:Nonsmoker Start:07-Jan-2019 Instruction Type:Patient Education How to access health informa tion online - Detail Indication:Nonsmoker Start:07-Jan-2019 Instruction Type:Patient Education Patient Instructions Indication:Nonsmoker Start:07-Jan-2019 Instruction Type:Provider Instructions for Treatment How to access health informa tion online Indication:Nonsmoker Start:27-Sep-2018 Instruction Type:Patient Education How to access health informa tion online - Detail Indication:Nonsmoker Start:27-Sep-2018 Instruction Type:Patient Education Patient Instructions Indication:Nonsmoker Start:27-Sep-2018 Instruction Type:Provider Instructions for Treatment How to access health informa tion online Indication:Nonsmoker Start:27-Aug-2018 Instruction Type:Patient Education How to access health informa tion online - Detail Indication:Nonsmoker Start:27-Aug-2018 Instruction Type:Patient Education Patient Instructions Indication:Nonsmoker Start:27-Aug-2018 Instruction Type:Provider Instructions for Treatment How to access health informa tion online Indication:Nonsmoker Start:04-May-2018 Instruction Type:Patient Education How to access health informa tion online - Detail Indication:Nonsmoker Start:04-May-2018 Instruction Type:Patient Education Patient Instructions Indication:Nonsmoker Start:04-May-2018 Instruction Type:Provider Instructions for Treatment How to access health informa tion online Indication:Body mass index 35.0-35.9, adult Start:07-Feb-2018 Instruction Type:Patient Education How to access health informa tion online - Detail Indication:Body mass index 35.0-35.9, adult Start:07-Feb-2018 Instruction Type:Patient Education Patient Instructions Indication:Body mass index 35.0-35.9, adult Start:07-Feb-2018 Instruction Type:Provider Instructions for Treatment How to access health informa tion online Indication:Nonsmoker Start:03-Aug-2017 Instruction Type:Patient Education How to access health informa tion online - Detail Indication:Nonsmoker Start:03-Aug-2017 Instruction Type:Patient Education Patient Instructions Indication:Influenza Start:03-Aug-2017 Instruction Type:Provider Instructions for Treatment How to access health informa tion online Indication:Nonsmoker Start:12-May-2017 Instruction Type:Patient Education How to access health informa tion online - Detail Indication:Nonsmoker Start:12-May-2017 Instruction Type:Patient Education Patient Instructions Indication:Nonsmoker Start:12-May-2017 Instruction Type:Provider Instructions for Treatment How to access health informa tion online Indication:Nonsmoker Start:09-Feb-2017 Instruction Type:Patient Education How to access health informa tion online - Detail Indication:Nonsmoker Start:09-Feb-2017 Instruction Type:Patient Education Patient Instructions Indication:Nonsmoker Start:09-Feb-2017 Instruction Type:Provider Instructions for Treatment How to access health informa tion online Indication:Nonsmoker Start:22-Dec-2016 Instruction Type:Patient Education How to access health informa tion online - Detail Indication:Nonsmoker Start:22-Dec-2016 Instruction Type:Patient Education Patient Instructions Indication:Nonsmoker Start:22-Dec-2016 Instruction Type:Provider Instructions for Treatment Patient Instructions Indication:Benign essential hypertension Start:28-Jul-2016 Instruction Type:Provider Instructions for Treatment How to access health informa tion online Indication:Benign essential hypertension Start:28-Jul-2016 Instruction Type:Patient Education How to access health informa tion online - Detail Indication:Benign essential hypertension Start:28-Jul-2016 Instruction Type:Patient Education How to access health informa tion online Indication:Nonsmoker Start:05-Jul-2016 Instruction Type:Patient Education How to access health informa tion online - Detail Indication:Nonsmoker Start:05-Jul-2016 Instruction Type:Patient Education Patient Instructions Indication:Nonsmoker Start:05-Jul-2016 Instruction Type:Provider Instructions for Treatment How to access health informa tion online Indication:Annual physical exam Start:25-Feb-2016 Instruction Type:Patient Education How to access health informa tion online - Detail Indication:Annual physical exam Start:25-Feb-2016 Instruction Type:Patient Education Patient Instructions Indication:Annual physical exam Start:25-Feb-2016 Instruction Type:Provider Instructions for Treatment How to access health informa tion online Indication:Mixed hyperlipidemia Start:27-Nov-2015 Instruction Type:Patient Education How to access health informa tion online - Detail Indication:Mixed hyperlipidemia Start:27-Nov-2015 Instruction Type:Patient Education Patient Instructions Indication:Mixed hyperlipidemia Start:27-Nov-2015 Instruction Type:Provider Instructions for Treatment How to access health informa tion online Indication:Gastroesophageal reflux disease without esophagitis Start:29-May-2015 Instruction Type:Patient Education How to access health informa tion online - Detail Indication:Gastroesophageal reflux disease without esophagitis Start:29-May-2015 Instruction Type:Patient Education Patient Instructions Indication:Gastroesophageal reflux disease without esophagitis Start:29-May-2015 Instruction Type:Provider Instructions for Treatment Patient Instructions Indication:Other allergic rhinitis Start:27-Jan-2015 Instruction Type:Provider Instructions for Treatment Patient Instructions Indication:Benign essential hypertension Start:07-Oct-2014 Instruction Type:Provider Instructions for Treatment How to access health informa tion online Indication:Abdominal pain, acute, right upper quadrant Start:29-Aug-2014 Instruction Type:Patient Education How to access health informa tion online - Detail Indication:Abdominal pain, acute, right upper quadrant Start:29-Aug-2014 Instruction Type:Patient Education Patient Instructions Indication:Abdominal pain, acute, right upper quadrant Start:29-Aug-2014 Instruction Type:Provider Instructions for Treatment Patient Instructions Indication:Abdominal pain, acute, right upper quadrant Start:26-Aug-2014 Instruction Type:Provider Instructions for Treatment Patient Instructions Indication:Knee pain Start:24-Dec-2013 Instruction Type:Provider Instructions for Treatment Patient Instructions Indication:Benign essential hypertension Start:22-May-2013 Instruction Type:Provider Instructions for Treatment Patient Instructions Indication:Back pain Start:26-Apr-2013 Instruction Type:Provider Instructions for Treatment Patient Instructions Indication:Insect bite Start:05-Mar-2013 Instruction Type:Provider Instructions for Treatment Patient Instructions Indication:Gastroesophageal reflux disease without esophagitis Start:27-Apr-2012 Instruction Type:Provider Instructions for Treatment [facility]; [facility] Work Phone: Instructions* Name Dates Details Patient Instructions Indication:Nonsmoker Start:05-Jan-2023 Instruction Type:Provider Instructions for Treatment How to Access Health Informa tion Online using Patient Portal and [employer]rd [employer] Apps Indication:Nonsmoker Start:05-Jan-2023 Instruction Type:Patient Education Patient Instructions Indication:BMI 39.0-39.9,adult Start:15-Dec-2022 Instruction Type:Provider Instructions for Treatment How to Access Health Informa tion Online using Patient Portal and 3rd [employer] Apps Indication:BMI 39.0-39.9,adult Start:15-Dec-2022 Instruction Type:Patient Education How to Access Health Informa tion Online using Patient Portal and [employer] Apps Indication:Benign essential hypertension Start:02-Dec-2022 Instruction Type:Patient Education Patient Instructions Indication:Benign essential hypertension Start:02-Dec-2022 Instruction Type:Provider Instructions for Treatment Patient Instructions Indication:Nonsmoker Start:03-Jun-2022 Instruction Type:Provider Instructions for Treatment How to Access Health Informa tion Online using Patient Portal and [employer]rd [employer] Apps Indication:Nonsmoker Start:03-Jun-2022 Instruction Type:Patient Education How to Access Health Informa tion Online using Patient Portal and [employer] Apps Indication:Nonsmoker Start:22-Oct-2021 Instruction Type:Patient Education Patient Instructions Indication:Nonsmoker Start:22-Oct-2021 Instruction Type:Provider Instructions for Treatment Patient Instructions Indication:Nonsmoker Start:07-May-2021 Instruction Type:Provider Instructions for Treatment How to Access Health Informa tion Online using Patient Portal and [employer]rd [employer] Apps Indication:Nonsmoker Start:07-May-2021 Instruction Type:Patient Education Patient Instructions Indication:BMI 36.0-36.9,adult Start:05-Nov-2020 Instruction Type:Provider Instructions for Treatment How to Access Health Informa tion Online using Patient Portal and [employer]rd [employer] Apps Indication:BMI 36.0-36.9,adult Start:05-Nov-2020 Instruction Type:Patient Education How to access health informa tion online Indication:BMI 36.0-36.9,adult Start:26-Mar-2020 Instruction Type:Patient Education How to access health informa tion online - Detail Indication:BMI 36.0-36.9,adult Start:26-Mar-2020 Instruction Type:Patient Education Patient Instructions Indication:BMI 36.0-36.9,adult Start:26-Mar-2020 Instruction Type:Provider Instructions for Treatment How to access health informa tion online Indication:Compliance poor (Renamed from Poor compliance) Start:16-Jan-2020 Instruction Type:Patient Education How to access health informa tion online - Detail Indication:Compliance poor (Renamed from Poor compliance) Start:16-Jan-2020 Instruction Type:Patient Education How to access health informa tion online Indication:BMI 37.0-37.9, adult Start:28-Oct-2019 Instruction Type:Patient Education How to access health informa tion online - Detail Indication:BMI 37.0-37.9, adult Start:28-Oct-2019 Instruction Type:Patient Education Patient Instructions Indication:BMI 37.0-37.9, adult Start:28-Oct-2019 Instruction Type:Provider Instructions for Treatment How to access health informa tion online Indication:Pharyngitis, acute Start:25-Oct-2019 Instruction Type:Patient Education How to access health informa tion online - Detail Indication:Pharyngitis, acute Start:25-Oct-2019 Instruction Type:Patient Education Patient Instructions Indication:Pharyngitis, acute Start:25-Oct-2019 Instruction Type:Provider Instructions for Treatment How to access health informa tion online Indication:BMI 36.0-36.9,adult Start:16-Oct-2019 Instruction Type:Patient Education How to access health informa tion online - Detail Indication:BMI 36.0-36.9,adult Start:16-Oct-2019 Instruction Type:Patient Education Patient Instructions Indication:BMI 36.0-36.9,adult Start:16-Oct-2019 Instruction Type:Provider Instructions for Treatment How to access health informa tion online Indication:BMI 36.0-36.9,adult Start:15-Jul-2019 Instruction Type:Patient Education How to access health informa tion online - Detail Indication:BMI 36.0-36.9,adult Start:15-Jul-2019 Instruction Type:Patient Education Patient Instructions Indication:BMI 36.0-36.9,adult Start:15-Jul-2019 Instruction Type:Provider Instructions for Treatment How to access health informa tion online Indication:Nonsmoker Start:23-May-2019 Instruction Type:Patient Education How to access health informa tion online - Detail Indication:Nonsmoker Start:23-May-2019 Instruction Type:Patient Education Patient Instructions Indication:Nonsmoker Start:23-May-2019 Instruction Type:Provider Instructions for Treatment How to access health informa tion online Indication:Nonsmoker Start:07-Jan-2019 Instruction Type:Patient Education How to access health informa tion online - Detail Indication:Nonsmoker Start:07-Jan-2019 Instruction Type:Patient Education How to access health informa tion online - Detail Indication:Nonsmoker Start:07-Jan-2019 Instruction Type:Patient Education Patient Instructions Indication:Nonsmoker Start:07-Jan-2019 Instruction Type:Provider Instructions for Treatment How to access health informa tion online Indication:Nonsmoker Start:27-Sep-2018 Instruction Type:Patient Education How to access health informa tion online - Detail Indication:Nonsmoker Start:27-Sep-2018 Instruction Type:Patient Education Patient Instructions Indication:Nonsmoker Start:27-Sep-2018 Instruction Type:Provider Instructions for Treatment How to access health informa tion online Indication:Nonsmoker Start:27-Aug-2018 Instruction Type:Patient Education How to access health informa tion online - Detail Indication:Nonsmoker Start:27-Aug-2018 Instruction Type:Patient Education Patient Instructions Indication:Nonsmoker Start:27-Aug-2018 Instruction Type:Provider Instructions for Treatment How to access health informa tion online Indication:Nonsmoker Start:04-May-2018 Instruction Type:Patient Education How to access health informa tion online - Detail Indication:Nonsmoker Start:04-May-2018 Instruction Type:Patient Education Patient Instructions Indication:Nonsmoker Start:04-May-2018 Instruction Type:Provider Instructions for Treatment How to access health informa tion online Indication:Body mass index 35.0-35.9, adult Start:07-Feb-2018 Instruction Type:Patient Education How to access health informa tion online - Detail Indication:Body mass index 35.0-35.9, adult Start:07-Feb-2018 Instruction Type:Patient Education Patient Instructions Indication:Body mass index 35.0-35.9, adult Start:07-Feb-2018 Instruction Type:Provider Instructions for Treatment How to access health informa tion online Indication:Nonsmoker Start:03-Aug-2017 Instruction Type:Patient Education How to access health informa tion online - Detail Indication:Nonsmoker Start:03-Aug-2017 Instruction Type:Patient Education Patient Instructions Indication:Influenza Start:03-Aug-2017 Instruction Type:Provider Instructions for Treatment How to access health informa tion online Indication:Nonsmoker Start:12-May-2017 Instruction Type:Patient Education How to access health informa tion online - Detail Indication:Nonsmoker Start:12-May-2017 Instruction Type:Patient Education Patient Instructions Indication:Nonsmoker Start:12-May-2017 Instruction Type:Provider Instructions for Treatment How to access health informa tion online Indication:Nonsmoker Start:09-Feb-2017 Instruction Type:Patient Education How to access health informa tion online - Detail Indication:Nonsmoker Start:09-Feb-2017 Instruction Type:Patient Education Patient Instructions Indication:Nonsmoker Start:09-Feb-2017 Instruction Type:Provider Instructions for Treatment How to access health informa tion online Indication:Nonsmoker Start:22-Dec-2016 Instruction Type:Patient Education How to access health informa tion online - Detail Indication:Nonsmoker Start:22-Dec-2016 Instruction Type:Patient Education Patient Instructions Indication:Nonsmoker Start:22-Dec-2016 Instruction Type:Provider Instructions for Treatment Patient Instructions Indication:Benign essential hypertension Start:28-Jul-2016 Instruction Type:Provider Instructions for Treatment How to access health informa tion online Indication:Benign essential hypertension Start:28-Jul-2016 Instruction Type:Patient Education How to access health informa tion online - Detail Indication:Benign essential hypertension Start:28-Jul-2016 Instruction Type:Patient Education How to access health informa tion online Indication:Nonsmoker Start:05-Jul-2016 Instruction Type:Patient Education How to access health informa tion online - Detail Indication:Nonsmoker Start:05-Jul-2016 Instruction Type:Patient Education Patient Instructions Indication:Nonsmoker Start:05-Jul-2016 Instruction Type:Provider Instructions for Treatment How to access health informa tion online Indication:Annual physical exam Start:25-Feb-2016 Instruction Type:Patient Education How to access health informa tion online - Detail Indication:Annual physical exam Start:25-Feb-2016 Instruction Type:Patient Education Patient Instructions Indication:Annual physical exam Start:25-Feb-2016 Instruction Type:Provider Instructions for Treatment How to access health informa tion online Indication:Mixed hyperlipidemia Start:27-Nov-2015 Instruction Type:Patient Education How to access health informa tion online - Detail Indication:Mixed hyperlipidemia Start:27-Nov-2015 Instruction Type:Patient Education Patient Instructions Indication:Mixed hyperlipidemia Start:27-Nov-2015 Instruction Type:Provider Instructions for Treatment How to access health informa tion online Indication:Gastroesophageal reflux disease without esophagitis Start:29-May-2015 Instruction Type:Patient Education How to access health informa tion online - Detail Indication:Gastroesophageal reflux disease without esophagitis Start:29-May-2015 Instruction Type:Patient Education Patient Instructions Indication:Gastroesophageal reflux disease without esophagitis Start:29-May-2015 Instruction Type:Provider Instructions for Treatment Patient Instructions Indication:Other allergic rhinitis Start:27-Jan-2015 Instruction Type:Provider Instructions for Treatment Patient Instructions Indication:Benign essential hypertension Start:07-Oct-2014 Instruction Type:Provider Instructions for Treatment How to access health informa tion online Indication:Abdominal pain, acute, right upper quadrant Start:29-Aug-2014 Instruction Type:Patient Education How to access health informa tion online - Detail Indication:Abdominal pain, acute, right upper quadrant Start:29-Aug-2014 Instruction Type:Patient Education Patient Instructions Indication:Abdominal pain, acute, right upper quadrant Start:29-Aug-2014 Instruction Type:Provider Instructions for Treatment Patient Instructions Indication:Abdominal pain, acute, right upper quadrant Start:26-Aug-2014 Instruction Type:Provider Instructions for Treatment Patient Instructions Indication:Knee pain Start:24-Dec-2013 Instruction Type:Provider Instructions for Treatment Patient Instructions Indication:Benign essential hypertension Start:22-May-2013 Instruction Type:Provider Instructions for Treatment Patient Instructions Indication:Back pain Start:26-Apr-2013 Instruction Type:Provider Instructions for Treatment Patient Instructions Indication:Insect bite Start:05-Mar-2013 Instruction Type:Provider Instructions for Treatment Patient Instructions Indication:Gastroesophageal reflux disease without esophagitis Start:27-Apr-2012 Instruction Type:Provider Instructions for Treatment [facility]; [facility] Work Phone: Instructions* Name Dates Details Patient Instructions Indication:Nonsmoker Start:05-Jan-2023 Instruction Type:Provider Instructions for Treatment How to Access Health Informa tion Online using Patient Portal and [employer] Apps Indication:Nonsmoker Start:05-Jan-2023 Instruction Type:Patient Education Patient Instructions Indication:BMI 39.0-39.9,adult Start:15-Dec-2022 Instruction Type:Provider Instructions for Treatment How to Access Health Informa tion Online using Patient Portal and [employer] Apps Indication:BMI 39.0-39.9,adult Start:15-Dec-2022 Instruction Type:Patient Education How to Access Health Informa tion Online using Patient Portal and [employer] Apps Indication:Benign essential hypertension Start:02-Dec-2022 Instruction Type:Patient Education Patient Instructions Indication:Benign essential hypertension Start:02-Dec-2022 Instruction Type:Provider Instructions for Treatment Patient Instructions Indication:Nonsmoker Start:03-Jun-2022 Instruction Type:Provider Instructions for Treatment How to Access Health Informa tion Online using Patient Portal and [employer] Apps Indication:Nonsmoker Start:03-Jun-2022 Instruction Type:Patient Education How to Access Health Informa tion Online using Patient Portal and [employer] Apps Indication:Nonsmoker Start:22-Oct-2021 Instruction Type:Patient Education Patient Instructions Indication:Nonsmoker Start:22-Oct-2021 Instruction Type:Provider Instructions for Treatment Patient Instructions Indication:Nonsmoker Start:07-May-2021 Instruction Type:Provider Instructions for Treatment How to Access Health Informa tion Online using Patient Portal and [employer] Apps Indication:Nonsmoker Start:07-May-2021 Instruction Type:Patient Education Patient Instructions Indication:BMI 36.0-36.9,adult Start:05-Nov-2020 Instruction Type:Provider Instructions for Treatment How to Access Health Informa tion Online using Patient Portal and [employer] Apps Indication:BMI 36.0-36.9,adult Start:05-Nov-2020 Instruction Type:Patient Education How to access health informa tion online Indication:BMI 36.0-36.9,adult Start:26-Mar-2020 Instruction Type:Patient Education How to access health informa tion online - Detail Indication:BMI 36.0-36.9,adult Start:26-Mar-2020 Instruction Type:Patient Education Patient Instructions Indication:BMI 36.0-36.9,adult Start:26-Mar-2020 Instruction Type:Provider Instructions for Treatment How to access health informa tion online Indication:Compliance poor (Renamed from Poor compliance) Start:16-Jan-2020 Instruction Type:Patient Education How to access health informa tion online - Detail Indication:Compliance poor (Renamed from Poor compliance) Start:16-Jan-2020 Instruction Type:Patient Education How to access health informa tion online Indication:BMI 37.0-37.9, adult Start:28-Oct-2019 Instruction Type:Patient Education How to access health informa tion online - Detail Indication:BMI 37.0-37.9, adult Start:28-Oct-2019 Instruction Type:Patient Education Patient Instructions Indication:BMI 37.0-37.9, adult Start:28-Oct-2019 Instruction Type:Provider Instructions for Treatment How to access health informa tion online Indication:Pharyngitis, acute Start:25-Oct-2019 Instruction Type:Patient Education How to access health informa tion online - Detail Indication:Pharyngitis, acute Start:25-Oct-2019 Instruction Type:Patient Education Patient Instructions Indication:Pharyngitis, acute Start:25-Oct-2019 Instruction Type:Provider Instructions for Treatment How to access health informa tion online Indication:BMI 36.0-36.9,adult Start:16-Oct-2019 Instruction Type:Patient Education How to access health informa tion online - Detail Indication:BMI 36.0-36.9,adult Start:16-Oct-2019 Instruction Type:Patient Education Patient Instructions Indication:BMI 36.0-36.9,adult Start:16-Oct-2019 Instruction Type:Provider Instructions for Treatment How to access health informa tion online Indication:BMI 36.0-36.9,adult Start:15-Jul-2019 Instruction Type:Patient Education How to access health informa tion online - Detail Indication:BMI 36.0-36.9,adult Start:15-Jul-2019 Instruction Type:Patient Education Patient Instructions Indication:BMI 36.0-36.9,adult Start:15-Jul-2019 Instruction Type:Provider Instructions for Treatment How to access health informa tion online Indication:Nonsmoker Start:23-May-2019 Instruction Type:Patient Education How to access health informa tion online - Detail Indication:Nonsmoker Start:23-May-2019 Instruction Type:Patient Education Patient Instructions Indication:Nonsmoker Start:23-May-2019 Instruction Type:Provider Instructions for Treatment How to access health informa tion online Indication:Nonsmoker Start:07-Jan-2019 Instruction Type:Patient Education How to access health informa tion online - Detail Indication:Nonsmoker Start:07-Jan-2019 Instruction Type:Patient Education How to access health informa tion online - Detail Indication:Nonsmoker Start:07-Jan-2019 Instruction Type:Patient Education Patient Instructions Indication:Nonsmoker Start:07-Jan-2019 Instruction Type:Provider Instructions for Treatment How to access health informa tion online Indication:Nonsmoker Start:27-Sep-2018 Instruction Type:Patient Education How to access health informa tion online - Detail Indication:Nonsmoker Start:27-Sep-2018 Instruction Type:Patient Education Patient Instructions Indication:Nonsmoker Start:27-Sep-2018 Instruction Type:Provider Instructions for Treatment How to access health informa tion online Indication:Nonsmoker Start:27-Aug-2018 Instruction Type:Patient Education How to access health informa tion online - Detail Indication:Nonsmoker Start:27-Aug-2018 Instruction Type:Patient Education Patient Instructions Indication:Nonsmoker Start:27-Aug-2018 Instruction Type:Provider Instructions for Treatment How to access health informa tion online Indication:Nonsmoker Start:04-May-2018 Instruction Type:Patient Education How to access health informa tion online - Detail Indication:Nonsmoker Start:04-May-2018 Instruction Type:Patient Education Patient Instructions Indication:Nonsmoker Start:04-May-2018 Instruction Type:Provider Instructions for Treatment How to access health informa tion online Indication:Body mass index 35.0-35.9, adult Start:07-Feb-2018 Instruction Type:Patient Education How to access health informa tion online - Detail Indication:Body mass index 35.0-35.9, adult Start:07-Feb-2018 Instruction Type:Patient Education Patient Instructions Indication:Body mass index 35.0-35.9, adult Start:07-Feb-2018 Instruction Type:Provider Instructions for Treatment How to access health informa tion online Indication:Nonsmoker Start:03-Aug-2017 Instruction Type:Patient Education How to access health informa tion online - Detail Indication:Nonsmoker Start:03-Aug-2017 Instruction Type:Patient Education Patient Instructions Indication:Influenza Start:03-Aug-2017 Instruction Type:Provider Instructions for Treatment How to access health informa tion online Indication:Nonsmoker Start:12-May-2017 Instruction Type:Patient Education How to access health informa tion online - Detail Indication:Nonsmoker Start:12-May-2017 Instruction Type:Patient Education Patient Instructions Indication:Nonsmoker Start:12-May-2017 Instruction Type:Provider Instructions for Treatment How to access health informa tion online Indication:Nonsmoker Start:09-Feb-2017 Instruction Type:Patient Education How to access health informa tion online - Detail Indication:Nonsmoker Start:09-Feb-2017 Instruction Type:Patient Education Patient Instructions Indication:Nonsmoker Start:09-Feb-2017 Instruction Type:Provider Instructions for Treatment How to access health informa tion online Indication:Nonsmoker Start:22-Dec-2016 Instruction Type:Patient Education How to access health informa tion online - Detail Indication:Nonsmoker Start:22-Dec-2016 Instruction Type:Patient Education Patient Instructions Indication:Nonsmoker Start:22-Dec-2016 Instruction Type:Provider Instructions for Treatment Patient Instructions Indication:Benign essential hypertension Start:28-Jul-2016 Instruction Type:Provider Instructions for Treatment How to access health informa tion online Indication:Benign essential hypertension Start:28-Jul-2016 Instruction Type:Patient Education How to access health informa tion online - Detail Indication:Benign essential hypertension Start:28-Jul-2016 Instruction Type:Patient Education How to access health informa tion online Indication:Nonsmoker Start:05-Jul-2016 Instruction Type:Patient Education How to access health informa tion online - Detail Indication:Nonsmoker Start:05-Jul-2016 Instruction Type:Patient Education Patient Instructions Indication:Nonsmoker Start:05-Jul-2016 Instruction Type:Provider Instructions for Treatment How to access health informa tion online Indication:Annual physical exam Start:25-Feb-2016 Instruction Type:Patient Education How to access health informa tion online - Detail Indication:Annual physical exam Start:25-Feb-2016 Instruction Type:Patient Education Patient Instructions Indication:Annual physical exam Start:25-Feb-2016 Instruction Type:Provider Instructions for Treatment How to access health informa tion online Indication:Mixed hyperlipidemia Start:27-Nov-2015 Instruction Type:Patient Education How to access health informa tion online - Detail Indication:Mixed hyperlipidemia Start:27-Nov-2015 Instruction Type:Patient Education Patient Instructions Indication:Mixed hyperlipidemia Start:27-Nov-2015 Instruction Type:Provider Instructions for Treatment How to access health informa tion online Indication:Gastroesophageal reflux disease without esophagitis Start:29-May-2015 Instruction Type:Patient Education How to access health informa tion online - Detail Indication:Gastroesophageal reflux disease without esophagitis Start:29-May-2015 Instruction Type:Patient Education Patient Instructions Indication:Gastroesophageal reflux disease without esophagitis Start:29-May-2015 Instruction Type:Provider Instructions for Treatment Patient Instructions Indication:Other allergic rhinitis Start:27-Jan-2015 Instruction Type:Provider Instructions for Treatment Patient Instructions Indication:Benign essential hypertension Start:07-Oct-2014 Instruction Type:Provider Instructions for Treatment How to access health informa tion online Indication:Abdominal pain, acute, right upper quadrant Start:29-Aug-2014 Instruction Type:Patient Education How to access health informa tion online - Detail Indication:Abdominal pain, acute, right upper quadrant Start:29-Aug-2014 Instruction Type:Patient Education Patient Instructions Indication:Abdominal pain, acute, right upper quadrant Start:29-Aug-2014 Instruction Type:Provider Instructions for Treatment Patient Instructions Indication:Abdominal pain, acute, right upper quadrant Start:26-Aug-2014 Instruction Type:Provider Instructions for Treatment Patient Instructions Indication:Knee pain Start:24-Dec-2013 Instruction Type:Provider Instructions for Treatment Patient Instructions Indication:Benign essential hypertension Start:22-May-2013 Instruction Type:Provider Instructions for Treatment Patient Instructions Indication:Back pain Start:26-Apr-2013 Instruction Type:Provider Instructions for Treatment Patient Instructions Indication:Insect bite Start:05-Mar-2013 Instruction Type:Provider Instructions for Treatment Patient Instructions Indication:Gastroesophageal reflux disease without esophagitis Start:27-Apr-2012 Instruction Type:Provider Instructions for Treatment [facility]; [facility] Work Phone: Instructions* Name Dates Details Patient Instructions Indication:Nonsmoker Start:05-Jan-2023 Instruction Type:Provider Instructions for Treatment How to Access Health Informa tion Online using Patient Portal and [employer] Apps Indication:Nonsmoker Start:05-Jan-2023 Instruction Type:Patient Education Patient Instructions Indication:BMI 39.0-39.9,adult Start:15-Dec-2022 Instruction Type:Provider Instructions for Treatment How to Access Health Informa tion Online using Patient Portal and [employer] Apps Indication:BMI 39.0-39.9,adult Start:15-Dec-2022 Instruction Type:Patient Education How to Access Health Informa tion Online using Patient Portal and [employer] Apps Indication:Benign essential hypertension Start:02-Dec-2022 Instruction Type:Patient Education Patient Instructions Indication:Benign essential hypertension Start:02-Dec-2022 Instruction Type:Provider Instructions for Treatment Patient Instructions Indication:Nonsmoker Start:03-Jun-2022 Instruction Type:Provider Instructions for Treatment How to Access Health Informa tion Online using Patient Portal and [employer] Apps Indication:Nonsmoker Start:03-Jun-2022 Instruction Type:Patient Education How to Access Health Informa tion Online using Patient Portal and [employer] Apps Indication:Nonsmoker Start:22-Oct-2021 Instruction Type:Patient Education Patient Instructions Indication:Nonsmoker Start:22-Oct-2021 Instruction Type:Provider Instructions for Treatment Patient Instructions Indication:Nonsmoker Start:07-May-2021 Instruction Type:Provider Instructions for Treatment How to Access Health Informa tion Online using Patient Portal and [employer] Apps Indication:Nonsmoker Start:07-May-2021 Instruction Type:Patient Education Patient Instructions Indication:BMI 36.0-36.9,adult Start:05-Nov-2020 Instruction Type:Provider Instructions for Treatment How to Access Health Informa tion Online using Patient Portal and [employer] Apps Indication:BMI 36.0-36.9,adult Start:05-Nov-2020 Instruction Type:Patient Education How to access health informa tion online Indication:BMI 36.0-36.9,adult Start:26-Mar-2020 Instruction Type:Patient Education How to access health informa tion online - Detail Indication:BMI 36.0-36.9,adult Start:26-Mar-2020 Instruction Type:Patient Education Patient Instructions Indication:BMI 36.0-36.9,adult Start:26-Mar-2020 Instruction Type:Provider Instructions for Treatment How to access health informa tion online Indication:Compliance poor (Renamed from Poor compliance) Start:16-Jan-2020 Instruction Type:Patient Education How to access health informa tion online - Detail Indication:Compliance poor (Renamed from Poor compliance) Start:16-Jan-2020 Instruction Type:Patient Education How to access health informa tion online Indication:BMI 37.0-37.9, adult Start:28-Oct-2019 Instruction Type:Patient Education How to access health informa tion online - Detail Indication:BMI 37.0-37.9, adult Start:28-Oct-2019 Instruction Type:Patient Education Patient Instructions Indication:BMI 37.0-37.9, adult Start:28-Oct-2019 Instruction Type:Provider Instructions for Treatment How to access health informa tion online Indication:Pharyngitis, acute Start:25-Oct-2019 Instruction Type:Patient Education How to access health informa tion online - Detail Indication:Pharyngitis, acute Start:25-Oct-2019 Instruction Type:Patient Education Patient Instructions Indication:Pharyngitis, acute Start:25-Oct-2019 Instruction Type:Provider Instructions for Treatment How to access health informa tion online Indication:BMI 36.0-36.9,adult Start:16-Oct-2019 Instruction Type:Patient Education How to access health informa tion online - Detail Indication:BMI 36.0-36.9,adult Start:16-Oct-2019 Instruction Type:Patient Education Patient Instructions Indication:BMI 36.0-36.9,adult Start:16-Oct-2019 Instruction Type:Provider Instructions for Treatment How to access health informa tion online Indication:BMI 36.0-36.9,adult Start:15-Jul-2019 Instruction Type:Patient Education How to access health informa tion online - Detail Indication:BMI 36.0-36.9,adult Start:15-Jul-2019 Instruction Type:Patient Education Patient Instructions Indication:BMI 36.0-36.9,adult Start:15-Jul-2019 Instruction Type:Provider Instructions for Treatment How to access health informa tion online Indication:Nonsmoker Start:23-May-2019 Instruction Type:Patient Education How to access health informa tion online - Detail Indication:Nonsmoker Start:23-May-2019 Instruction Type:Patient Education Patient Instructions Indication:Nonsmoker Start:23-May-2019 Instruction Type:Provider Instructions for Treatment How to access health informa tion online Indication:Nonsmoker Start:07-Jan-2019 Instruction Type:Patient Education How to access health informa tion online - Detail Indication:Nonsmoker Start:07-Jan-2019 Instruction Type:Patient Education How to access health informa tion online - Detail Indication:Nonsmoker Start:07-Jan-2019 Instruction Type:Patient Education Patient Instructions Indication:Nonsmoker Start:07-Jan-2019 Instruction Type:Provider Instructions for Treatment How to access health informa tion online Indication:Nonsmoker Start:27-Sep-2018 Instruction Type:Patient Education How to access health informa tion online - Detail Indication:Nonsmoker Start:27-Sep-2018 Instruction Type:Patient Education Patient Instructions Indication:Nonsmoker Start:27-Sep-2018 Instruction Type:Provider Instructions for Treatment How to access health informa tion online Indication:Nonsmoker Start:27-Aug-2018 Instruction Type:Patient Education How to access health informa tion online - Detail Indication:Nonsmoker Start:27-Aug-2018 Instruction Type:Patient Education Patient Instructions Indication:Nonsmoker Start:27-Aug-2018 Instruction Type:Provider Instructions for Treatment How to access health informa tion online Indication:Nonsmoker Start:04-May-2018 Instruction Type:Patient Education How to access health informa tion online - Detail Indication:Nonsmoker Start:04-May-2018 Instruction Type:Patient Education Patient Instructions Indication:Nonsmoker Start:04-May-2018 Instruction Type:Provider Instructions for Treatment How to access health informa tion online Indication:Body mass index 35.0-35.9, adult Start:07-Feb-2018 Instruction Type:Patient Education How to access health informa tion online - Detail Indication:Body mass index 35.0-35.9, adult Start:07-Feb-2018 Instruction Type:Patient Education Patient Instructions Indication:Body mass index 35.0-35.9, adult Start:07-Feb-2018 Instruction Type:Provider Instructions for Treatment How to access health informa tion online Indication:Nonsmoker Start:03-Aug-2017 Instruction Type:Patient Education How to access health informa tion online - Detail Indication:Nonsmoker Start:03-Aug-2017 Instruction Type:Patient Education Patient Instructions Indication:Influenza Start:03-Aug-2017 Instruction Type:Provider Instructions for Treatment How to access health informa tion online Indication:Nonsmoker Start:12-May-2017 Instruction Type:Patient Education How to access health informa tion online - Detail Indication:Nonsmoker Start:12-May-2017 Instruction Type:Patient Education Patient Instructions Indication:Nonsmoker Start:12-May-2017 Instruction Type:Provider Instructions for Treatment How to access health informa tion online Indication:Nonsmoker Start:09-Feb-2017 Instruction Type:Patient Education How to access health informa tion online - Detail Indication:Nonsmoker Start:09-Feb-2017 Instruction Type:Patient Education Patient Instructions Indication:Nonsmoker Start:09-Feb-2017 Instruction Type:Provider Instructions for Treatment How to access health informa tion online Indication:Nonsmoker Start:22-Dec-2016 Instruction Type:Patient Education How to access health informa tion online - Detail Indication:Nonsmoker Start:22-Dec-2016 Instruction Type:Patient Education Patient Instructions Indication:Nonsmoker Start:22-Dec-2016 Instruction Type:Provider Instructions for Treatment Patient Instructions Indication:Benign essential hypertension Start:28-Jul-2016 Instruction Type:Provider Instructions for Treatment How to access health informa tion online Indication:Benign essential hypertension Start:28-Jul-2016 Instruction Type:Patient Education How to access health informa tion online - Detail Indication:Benign essential hypertension Start:28-Jul-2016 Instruction Type:Patient Education How to access health informa tion online Indication:Nonsmoker Start:05-Jul-2016 Instruction Type:Patient Education How to access health informa tion online - Detail Indication:Nonsmoker Start:05-Jul-2016 Instruction Type:Patient Education Patient Instructions Indication:Nonsmoker Start:05-Jul-2016 Instruction Type:Provider Instructions for Treatment How to access health informa tion online Indication:Annual physical exam Start:25-Feb-2016 Instruction Type:Patient Education How to access health informa tion online - Detail Indication:Annual physical exam Start:25-Feb-2016 Instruction Type:Patient Education Patient Instructions Indication:Annual physical exam Start:25-Feb-2016 Instruction Type:Provider Instructions for Treatment How to access health informa tion online Indication:Mixed hyperlipidemia Start:27-Nov-2015 Instruction Type:Patient Education How to access health informa tion online - Detail Indication:Mixed hyperlipidemia Start:27-Nov-2015 Instruction Type:Patient Education Patient Instructions Indication:Mixed hyperlipidemia Start:27-Nov-2015 Instruction Type:Provider Instructions for Treatment How to access health informa tion online Indication:Gastroesophageal reflux disease without esophagitis Start:29-May-2015 Instruction Type:Patient Education How to access health informa tion online - Detail Indication:Gastroesophageal reflux disease without esophagitis Start:29-May-2015 Instruction Type:Patient Education Patient Instructions Indication:Gastroesophageal reflux disease without esophagitis Start:29-May-2015 Instruction Type:Provider Instructions for Treatment Patient Instructions Indication:Other allergic rhinitis Start:27-Jan-2015 Instruction Type:Provider Instructions for Treatment Patient Instructions Indication:Benign essential hypertension Start:07-Oct-2014 Instruction Type:Provider Instructions for Treatment How to access health informa tion online Indication:Abdominal pain, acute, right upper quadrant Start:29-Aug-2014 Instruction Type:Patient Education How to access health informa tion online - Detail Indication:Abdominal pain, acute, right upper quadrant Start:29-Aug-2014 Instruction Type:Patient Education Patient Instructions Indication:Abdominal pain, acute, right upper quadrant Start:29-Aug-2014 Instruction Type:Provider Instructions for Treatment Patient Instructions Indication:Abdominal pain, acute, right upper quadrant Start:26-Aug-2014 Instruction Type:Provider Instructions for Treatment Patient Instructions Indication:Knee pain Start:24-Dec-2013 Instruction Type:Provider Instructions for Treatment Patient Instructions Indication:Benign essential hypertension Start:22-May-2013 Instruction Type:Provider Instructions for Treatment Patient Instructions Indication:Back pain Start:26-Apr-2013 Instruction Type:Provider Instructions for Treatment Patient Instructions Indication:Insect bite Start:05-Mar-2013 Instruction Type:Provider Instructions for Treatment Patient Instructions Indication:Gastroesophageal reflux disease without esophagitis Start:27-Apr-2012 Instruction Type:Provider Instructions for Treatment [facility]; [facility] Work Phone: Instructions* Name Dates Details Patient Instructions Indication:Nonsmoker Start:05-Jan-2023 Instruction Type:Provider Instructions for Treatment How to Access Health Informa tion Online using Patient Portal and [employer] Apps Indication:Nonsmoker Start:05-Jan-2023 Instruction Type:Patient Education Patient Instructions Indication:BMI 39.0-39.9,adult Start:15-Dec-2022 Instruction Type:Provider Instructions for Treatment How to Access Health Informa tion Online using Patient Portal and [employer] Apps Indication:BMI 39.0-39.9,adult Start:15-Dec-2022 Instruction Type:Patient Education How to Access Health Informa tion Online using Patient Portal and [employer] Apps Indication:Benign essential hypertension Start:02-Dec-2022 Instruction Type:Patient Education Patient Instructions Indication:Benign essential hypertension Start:02-Dec-2022 Instruction Type:Provider Instructions for Treatment Patient Instructions Indication:Nonsmoker Start:03-Jun-2022 Instruction Type:Provider Instructions for Treatment How to Access Health Informa tion Online using Patient Portal and [employer] Indication:Nonsmoker Start:03-Jun-2022 Instruction Type:Patient Education How to Access Health Informa tion Online using Patient Portal and [employer] Apps Indication:Nonsmoker Start:22-Oct-2021 Instruction Type:Patient Education Patient Instructions Indication:Nonsmoker Start:22-Oct-2021 Instruction Type:Provider Instructions for Treatment Patient Instructions Indication:Nonsmoker Start:07-May-2021 Instruction Type:Provider Instructions for Treatment How to Access Health Informa tion Online using Patient Portal and [employer] Apps Indication:Nonsmoker Start:07-May-2021 Instruction Type:Patient Education Patient Instructions Indication:BMI 36.0-36.9,adult Start:05-Nov-2020 Instruction Type:Provider Instructions for Treatment How to Access Health Informa tion Online using Patient Portal and [employer] Apps Indication:BMI 36.0-36.9,adult Start:05-Nov-2020 Instruction Type:Patient Education How to access health informa tion online Indication:BMI 36.0-36.9,adult Start:26-Mar-2020 Instruction Type:Patient Education How to access health informa tion online - Detail Indication:BMI 36.0-36.9,adult Start:26-Mar-2020 Instruction Type:Patient Education Patient Instructions Indication:BMI 36.0-36.9,adult Start:26-Mar-2020 Instruction Type:Provider Instructions for Treatment How to access health informa tion online Indication:Compliance poor (Renamed from Poor compliance) Start:16-Jan-2020 Instruction Type:Patient Education How to access health informa tion online - Detail Indication:Compliance poor (Renamed from Poor compliance) Start:16-Jan-2020 Instruction Type:Patient Education How to access health informa tion online Indication:BMI 37.0-37.9, adult Start:28-Oct-2019 Instruction Type:Patient Education How to access health informa tion online - Detail Indication:BMI 37.0-37.9, adult Start:28-Oct-2019 Instruction Type:Patient Education Patient Instructions Indication:BMI 37.0-37.9, adult Start:28-Oct-2019 Instruction Type:Provider Instructions for Treatment How to access health informa tion online Indication:Pharyngitis, acute Start:25-Oct-2019 Instruction Type:Patient Education How to access health informa tion online - Detail Indication:Pharyngitis, acute Start:25-Oct-2019 Instruction Type:Patient Education Patient Instructions Indication:Pharyngitis, acute Start:25-Oct-2019 Instruction Type:Provider Instructions for Treatment How to access health informa tion online Indication:BMI 36.0-36.9,adult Start:16-Oct-2019 Instruction Type:Patient Education How to access health informa tion online - Detail Indication:BMI 36.0-36.9,adult Start:16-Oct-2019 Instruction Type:Patient Education Patient Instructions Indication:BMI 36.0-36.9,adult Start:16-Oct-2019 Instruction Type:Provider Instructions for Treatment How to access health informa tion online Indication:BMI 36.0-36.9,adult Start:15-Jul-2019 Instruction Type:Patient Education How to access health informa tion online - Detail Indication:BMI 36.0-36.9,adult Start:15-Jul-2019 Instruction Type:Patient Education Patient Instructions Indication:BMI 36.0-36.9,adult Start:15-Jul-2019 Instruction Type:Provider Instructions for Treatment How to access health informa tion online Indication:Nonsmoker Start:23-May-2019 Instruction Type:Patient Education How to access health informa tion online - Detail Indication:Nonsmoker Start:23-May-2019 Instruction Type:Patient Education Patient Instructions Indication:Nonsmoker Start:23-May-2019 Instruction Type:Provider Instructions for Treatment How to access health informa tion online Indication:Nonsmoker Start:07-Jan-2019 Instruction Type:Patient Education How to access health informa tion online - Detail Indication:Nonsmoker Start:07-Jan-2019 Instruction Type:Patient Education How to access health informa tion online - Detail Indication:Nonsmoker Start:07-Jan-2019 Instruction Type:Patient Education Patient Instructions Indication:Nonsmoker Start:07-Jan-2019 Instruction Type:Provider Instructions for Treatment How to access health informa tion online Indication:Nonsmoker Start:27-Sep-2018 Instruction Type:Patient Education How to access health informa tion online - Detail Indication:Nonsmoker Start:27-Sep-2018 Instruction Type:Patient Education Patient Instructions Indication:Nonsmoker Start:27-Sep-2018 Instruction Type:Provider Instructions for Treatment How to access health informa tion online Indication:Nonsmoker Start:27-Aug-2018 Instruction Type:Patient Education How to access health informa tion online - Detail Indication:Nonsmoker Start:27-Aug-2018 Instruction Type:Patient Education Patient Instructions Indication:Nonsmoker Start:27-Aug-2018 Instruction Type:Provider Instructions for Treatment How to access health informa tion online Indication:Nonsmoker Start:04-May-2018 Instruction Type:Patient Education How to access health informa tion online - Detail Indication:Nonsmoker Start:04-May-2018 Instruction Type:Patient Education Patient Instructions Indication:Nonsmoker Start:04-May-2018 Instruction Type:Provider Instructions for Treatment How to access health informa tion online Indication:Body mass index 35.0-35.9, adult Start:07-Feb-2018 Instruction Type:Patient Education How to access health informa tion online - Detail Indication:Body mass index 35.0-35.9, adult Start:07-Feb-2018 Instruction Type:Patient Education Patient Instructions Indication:Body mass index 35.0-35.9, adult Start:07-Feb-2018 Instruction Type:Provider Instructions for Treatment How to access health informa tion online Indication:Nonsmoker Start:03-Aug-2017 Instruction Type:Patient Education How to access health informa tion online - Detail Indication:Nonsmoker Start:03-Aug-2017 Instruction Type:Patient Education Patient Instructions Indication:Influenza Start:03-Aug-2017 Instruction Type:Provider Instructions for Treatment How to access health informa tion online Indication:Nonsmoker Start:12-May-2017 Instruction Type:Patient Education How to access health informa tion online - Detail Indication:Nonsmoker Start:12-May-2017 Instruction Type:Patient Education Patient Instructions Indication:Nonsmoker Start:12-May-2017 Instruction Type:Provider Instructions for Treatment How to access health informa tion online Indication:Nonsmoker Start:09-Feb-2017 Instruction Type:Patient Education How to access health informa tion online - Detail Indication:Nonsmoker Start:09-Feb-2017 Instruction Type:Patient Education Patient Instructions Indication:Nonsmoker Start:09-Feb-2017 Instruction Type:Provider Instructions for Treatment How to access health informa tion online Indication:Nonsmoker Start:22-Dec-2016 Instruction Type:Patient Education How to access health informa tion online - Detail Indication:Nonsmoker Start:22-Dec-2016 Instruction Type:Patient Education Patient Instructions Indication:Nonsmoker Start:22-Dec-2016 Instruction Type:Provider Instructions for Treatment Patient Instructions Indication:Benign essential hypertension Start:28-Jul-2016 Instruction Type:Provider Instructions for Treatment How to access health informa tion online Indication:Benign essential hypertension Start:28-Jul-2016 Instruction Type:Patient Education How to access health informa tion online - Detail Indication:Benign essential hypertension Start:28-Jul-2016 Instruction Type:Patient Education How to access health informa tion online Indication:Nonsmoker Start:05-Jul-2016 Instruction Type:Patient Education How to access health informa tion online - Detail Indication:Nonsmoker Start:05-Jul-2016 Instruction Type:Patient Education Patient Instructions Indication:Nonsmoker Start:05-Jul-2016 Instruction Type:Provider Instructions for Treatment How to access health informa tion online Indication:Annual physical exam Start:25-Feb-2016 Instruction Type:Patient Education How to access health informa tion online - Detail Indication:Annual physical exam Start:25-Feb-2016 Instruction Type:Patient Education Patient Instructions Indication:Annual physical exam Start:25-Feb-2016 Instruction Type:Provider Instructions for Treatment How to access health informa tion online Indication:Mixed hyperlipidemia Start:27-Nov-2015 Instruction Type:Patient Education How to access health informa tion online - Detail Indication:Mixed hyperlipidemia Start:27-Nov-2015 Instruction Type:Patient Education Patient Instructions Indication:Mixed hyperlipidemia Start:27-Nov-2015 Instruction Type:Provider Instructions for Treatment How to access health informa tion online Indication:Gastroesophageal reflux disease without esophagitis Start:29-May-2015 Instruction Type:Patient Education How to access health informa tion online - Detail Indication:Gastroesophageal reflux disease without esophagitis Start:29-May-2015 Instruction Type:Patient Education Patient Instructions Indication:Gastroesophageal reflux disease without esophagitis Start:29-May-2015 Instruction Type:Provider Instructions for Treatment Patient Instructions Indication:Other allergic rhinitis Start:27-Jan-2015 Instruction Type:Provider Instructions for Treatment Patient Instructions Indication:Benign essential hypertension Start:07-Oct-2014 Instruction Type:Provider Instructions for Treatment How to access health informa tion online Indication:Abdominal pain, acute, right upper quadrant Start:29-Aug-2014 Instruction Type:Patient Education How to access health informa tion online - Detail Indication:Abdominal pain, acute, right upper quadrant Start:29-Aug-2014 Instruction Type:Patient Education Patient Instructions Indication:Abdominal pain, acute, right upper quadrant Start:29-Aug-2014 Instruction Type:Provider Instructions for Treatment Patient Instructions Indication:Abdominal pain, acute, right upper quadrant Start:26-Aug-2014 Instruction Type:Provider Instructions for Treatment Patient Instructions Indication:Knee pain Start:24-Dec-2013 Instruction Type:Provider Instructions for Treatment Patient Instructions Indication:Benign essential hypertension Start:22-May-2013 Instruction Type:Provider Instructions for Treatment Patient Instructions Indication:Back pain Start:26-Apr-2013 Instruction Type:Provider Instructions for Treatment Patient Instructions Indication:Insect bite Start:05-Mar-2013 Instruction Type:Provider Instructions for Treatment Patient Instructions Indication:Gastroesophageal reflux disease without esophagitis Start:27-Apr-2012 Instruction Type:Provider Instructions for Treatment [facility] Work Phone: Instructions* Name Dates Details Patient Instructions Indication:ADD (attention deficit disorder) without hyperactivity Start:07-Apr-2023 Instruction Type:Provider Instructions for Treatment How to Access Health Informa tion Online using Patient Portal and [employer] Apps Indication:ADD (attention deficit disorder) without hyperactivity Start:07-Apr-2023 Instruction Type:Patient Education Patient Instructions Indication:Nonsmoker Start:05-Jan-2023 Instruction Type:Provider Instructions for Treatment How to Access Health Informa tion Online using Patient Portal and [employer] Apps Indication:Nonsmoker Start:05-Jan-2023 Instruction Type:Patient Education Patient Instructions Indication:BMI 39.0-39.9,adult Start:15-Dec-2022 Instruction Type:Provider Instructions for Treatment How to Access Health Informa tion Online using Patient Portal and [employer] Apps Indication:BMI 39.0-39.9,adult Start:15-Dec-2022 Instruction Type:Patient Education How to Access Health Informa tion Online using Patient Portal and [employer] Apps Indication:Benign essential hypertension Start:02-Dec-2022 Instruction Type:Patient Education Patient Instructions Indication:Benign essential hypertension Start:02-Dec-2022 Instruction Type:Provider Instructions for Treatment Patient Instructions Indication:Nonsmoker Start:03-Jun-2022 Instruction Type:Provider Instructions for Treatment How to Access Health Informa tion Online using Patient Portal and [employer] Apps Indication:Nonsmoker Start:03-Jun-2022 Instruction Type:Patient Education How to Access Health Informa tion Online using Patient Portal and [employer] Apps Indication:Nonsmoker Start:22-Oct-2021 Instruction Type:Patient Education Patient Instructions Indication:Nonsmoker Start:22-Oct-2021 Instruction Type:Provider Instructions for Treatment Patient Instructions Indication:Nonsmoker Start:07-May-2021 Instruction Type:Provider Instructions for Treatment How to Access Health Informa tion Online using Patient Portal and [employer] Apps Indication:Nonsmoker Start:07-May-2021 Instruction Type:Patient Education Patient Instructions Indication:BMI 36.0-36.9,adult Start:05-Nov-2020 Instruction Type:Provider Instructions for Treatment How to Access Health Informa tion Online using Patient Portal and [employer] Apps Indication:BMI 36.0-36.9,adult Start:05-Nov-2020 Instruction Type:Patient Education How to access health informa tion online Indication:BMI 36.0-36.9,adult Start:26-Mar-2020 Instruction Type:Patient Education How to access health informa tion online - Detail Indication:BMI 36.0-36.9,adult Start:26-Mar-2020 Instruction Type:Patient Education Patient Instructions Indication:BMI 36.0-36.9,adult Start:26-Mar-2020 Instruction Type:Provider Instructions for Treatment How to access health informa tion online Indication:Compliance poor (Renamed from Poor compliance) Start:16-Jan-2020 Instruction Type:Patient Education How to access health informa tion online - Detail Indication:Compliance poor (Renamed from Poor compliance) Start:16-Jan-2020 Instruction Type:Patient Education How to access health informa tion online Indication:BMI 37.0-37.9, adult Start:28-Oct-2019 Instruction Type:Patient Education How to access health informa tion online - Detail Indication:BMI 37.0-37.9, adult Start:28-Oct-2019 Instruction Type:Patient Education Patient Instructions Indication:BMI 37.0-37.9, adult Start:28-Oct-2019 Instruction Type:Provider Instructions for Treatment How to access health informa tion online Indication:Pharyngitis, acute Start:25-Oct-2019 Instruction Type:Patient Education How to access health informa tion online - Detail Indication:Pharyngitis, acute Start:25-Oct-2019 Instruction Type:Patient Education Patient Instructions Indication:Pharyngitis, acute Start:25-Oct-2019 Instruction Type:Provider Instructions for Treatment How to access health informa tion online Indication:BMI 36.0-36.9,adult Start:16-Oct-2019 Instruction Type:Patient Education How to access health informa tion online - Detail Indication:BMI 36.0-36.9,adult Start:16-Oct-2019 Instruction Type:Patient Education Patient Instructions Indication:BMI 36.0-36.9,adult Start:16-Oct-2019 Instruction Type:Provider Instructions for Treatment How to access health informa tion online Indication:BMI 36.0-36.9,adult Start:15-Jul-2019 Instruction Type:Patient Education How to access health informa tion online - Detail Indication:BMI 36.0-36.9,adult Start:15-Jul-2019 Instruction Type:Patient Education Patient Instructions Indication:BMI 36.0-36.9,adult Start:15-Jul-2019 Instruction Type:Provider Instructions for Treatment How to access health informa tion online Indication:Nonsmoker Start:23-May-2019 Instruction Type:Patient Education How to access health informa tion online - Detail Indication:Nonsmoker Start:23-May-2019 Instruction Type:Patient Education Patient Instructions Indication:Nonsmoker Start:23-May-2019 Instruction Type:Provider Instructions for Treatment How to access health informa tion online Indication:Nonsmoker Start:07-Jan-2019 Instruction Type:Patient Education How to access health informa tion online - Detail Indication:Nonsmoker Start:07-Jan-2019 Instruction Type:Patient Education How to access health informa tion online - Detail Indication:Nonsmoker Start:07-Jan-2019 Instruction Type:Patient Education Patient Instructions Indication:Nonsmoker Start:07-Jan-2019 Instruction Type:Provider Instructions for Treatment How to access health informa tion online Indication:Nonsmoker Start:27-Sep-2018 Instruction Type:Patient Education How to access health informa tion online - Detail Indication:Nonsmoker Start:27-Sep-2018 Instruction Type:Patient Education Patient Instructions Indication:Nonsmoker Start:27-Sep-2018 Instruction Type:Provider Instructions for Treatment How to access health informa tion online Indication:Nonsmoker Start:27-Aug-2018 Instruction Type:Patient Education How to access health informa tion online - Detail Indication:Nonsmoker Start:27-Aug-2018 Instruction Type:Patient Education Patient Instructions Indication:Nonsmoker Start:27-Aug-2018 Instruction Type:Provider Instructions for Treatment How to access health informa tion online Indication:Nonsmoker Start:04-May-2018 Instruction Type:Patient Education How to access health informa tion online - Detail Indication:Nonsmoker Start:04-May-2018 Instruction Type:Patient Education Patient Instructions Indication:Nonsmoker Start:04-May-2018 Instruction Type:Provider Instructions for Treatment How to access health informa tion online Indication:Body mass index 35.0-35.9, adult Start:07-Feb-2018 Instruction Type:Patient Education How to access health informa tion online - Detail Indication:Body mass index 35.0-35.9, adult Start:07-Feb-2018 Instruction Type:Patient Education Patient Instructions Indication:Body mass index 35.0-35.9, adult Start:07-Feb-2018 Instruction Type:Provider Instructions for Treatment How to access health informa tion online Indication:Nonsmoker Start:03-Aug-2017 Instruction Type:Patient Education How to access health informa tion online - Detail Indication:Nonsmoker Start:03-Aug-2017 Instruction Type:Patient Education Patient Instructions Indication:Influenza Start:03-Aug-2017 Instruction Type:Provider Instructions for Treatment How to access health informa tion online Indication:Nonsmoker Start:12-May-2017 Instruction Type:Patient Education How to access health informa tion online - Detail Indication:Nonsmoker Start:12-May-2017 Instruction Type:Patient Education Patient Instructions Indication:Nonsmoker Start:12-May-2017 Instruction Type:Provider Instructions for Treatment How to access health informa tion online Indication:Nonsmoker Start:09-Feb-2017 Instruction Type:Patient Education How to access health informa tion online - Detail Indication:Nonsmoker Start:09-Feb-2017 Instruction Type:Patient Education Patient Instructions Indication:Nonsmoker Start:09-Feb-2017 Instruction Type:Provider Instructions for Treatment How to access health informa tion online Indication:Nonsmoker Start:22-Dec-2016 Instruction Type:Patient Education How to access health informa tion online - Detail Indication:Nonsmoker Start:22-Dec-2016 Instruction Type:Patient Education Patient Instructions Indication:Nonsmoker Start:22-Dec-2016 Instruction Type:Provider Instructions for Treatment Patient Instructions Indication:Benign essential hypertension Start:28-Jul-2016 Instruction Type:Provider Instructions for Treatment How to access health informa tion online Indication:Benign essential hypertension Start:28-Jul-2016 Instruction Type:Patient Education How to access health informa tion online - Detail Indication:Benign essential hypertension Start:28-Jul-2016 Instruction Type:Patient Education How to access health informa tion online Indication:Nonsmoker Start:05-Jul-2016 Instruction Type:Patient Education How to access health informa tion online - Detail Indication:Nonsmoker Start:05-Jul-2016 Instruction Type:Patient Education Patient Instructions Indication:Nonsmoker Start:05-Jul-2016 Instruction Type:Provider Instructions for Treatment How to access health informa tion online Indication:Annual physical exam Start:25-Feb-2016 Instruction Type:Patient Education How to access health informa tion online - Detail Indication:Annual physical exam Start:25-Feb-2016 Instruction Type:Patient Education Patient Instructions Indication:Annual physical exam Start:25-Feb-2016 Instruction Type:Provider Instructions for Treatment How to access health informa tion online Indication:Mixed hyperlipidemia Start:27-Nov-2015 Instruction Type:Patient Education How to access health informa tion online - Detail Indication:Mixed hyperlipidemia Start:27-Nov-2015 Instruction Type:Patient Education Patient Instructions Indication:Mixed hyperlipidemia Start:27-Nov-2015 Instruction Type:Provider Instructions for Treatment How to access health informa tion online Indication:Gastroesophageal reflux disease without esophagitis Start:29-May-2015 Instruction Type:Patient Education How to access health informa tion online - Detail Indication:Gastroesophageal reflux disease without esophagitis Start:29-May-2015 Instruction Type:Patient Education Patient Instructions Indication:Gastroesophageal reflux disease without esophagitis Start:29-May-2015 Instruction Type:Provider Instructions for Treatment Patient Instructions Indication:Other allergic rhinitis Start:27-Jan-2015 Instruction Type:Provider Instructions for Treatment Patient Instructions Indication:Benign essential hypertension Start:07-Oct-2014 Instruction Type:Provider Instructions for Treatment How to access health informa tion online Indication:Abdominal pain, acute, right upper quadrant Start:29-Aug-2014 Instruction Type:Patient Education How to access health informa tion online - Detail Indication:Abdominal pain, acute, right upper quadrant Start:29-Aug-2014 Instruction Type:Patient Education Patient Instructions Indication:Abdominal pain, acute, right upper quadrant Start:29-Aug-2014 Instruction Type:Provider Instructions for Treatment Patient Instructions Indication:Abdominal pain, acute, right upper quadrant Start:26-Aug-2014 Instruction Type:Provider Instructions for Treatment Patient Instructions Indication:Knee pain Start:24-Dec-2013 Instruction Type:Provider Instructions for Treatment Patient Instructions Indication:Benign essential hypertension Start:22-May-2013 Instruction Type:Provider Instructions for Treatment Patient Instructions Indication:Back pain Start:26-Apr-2013 Instruction Type:Provider Instructions for Treatment Patient Instructions Indication:Insect bite Start:05-Mar-2013 Instruction Type:Provider Instructions for Treatment Patient Instructions Indication:Gastroesophageal reflux disease without esophagitis Start:27-Apr-2012 Instruction Type:Provider Instructions for Treatment [facility] Work Phone: Instructions* Name Dates Details Patient Instructions Indication:ADD (attention deficit disorder) without hyperactivity Start:07-Apr-2023 Instruction Type:Provider Instructions for Treatment How to Access Health Informa tion Online using Patient Portal and [employer] Apps Indication:ADD (attention deficit disorder) without hyperactivity Start:07-Apr-2023 Instruction Type:Patient Education Patient Instructions Indication:Nonsmoker Start:05-Jan-2023 Instruction Type:Provider Instructions for Treatment How to Access Health Informa tion Online using Patient Portal and [employer] Apps Indication:Nonsmoker Start:05-Jan-2023 Instruction Type:Patient Education Patient Instructions Indication:BMI 39.0-39.9,adult Start:15-Dec-2022 Instruction Type:Provider Instructions for Treatment How to Access Health Informa tion Online using Patient Portal and [employer] Apps Indication:BMI 39.0-39.9,adult Start:15-Dec-2022 Instruction Type:Patient Education How to Access Health Informa tion Online using Patient Portal and [employer] Apps Indication:Benign essential hypertension Start:02-Dec-2022 Instruction Type:Patient Education Patient Instructions Indication:Benign essential hypertension Start:02-Dec-2022 Instruction Type:Provider Instructions for Treatment Patient Instructions Indication:Nonsmoker Start:03-Jun-2022 Instruction Type:Provider Instructions for Treatment How to Access Health Informa tion Online using Patient Portal and [employer] Apps Indication:Nonsmoker Start:03-Jun-2022 Instruction Type:Patient Education How to Access Health Informa tion Online using Patient Portal and [employer] Apps Indication:Nonsmoker Start:22-Oct-2021 Instruction Type:Patient Education Patient Instructions Indication:Nonsmoker Start:22-Oct-2021 Instruction Type:Provider Instructions for Treatment Patient Instructions Indication:Nonsmoker Start:07-May-2021 Instruction Type:Provider Instructions for Treatment How to Access Health Informa tion Online using Patient Portal and [employer] Apps Indication:Nonsmoker Start:07-May-2021 Instruction Type:Patient Education Patient Instructions Indication:BMI 36.0-36.9,adult Start:05-Nov-2020 Instruction Type:Provider Instructions for Treatment How to Access Health Informa tion Online using Patient Portal and [employer] Apps Indication:BMI 36.0-36.9,adult Start:05-Nov-2020 Instruction Type:Patient Education How to access health informa tion online Indication:BMI 36.0-36.9,adult Start:26-Mar-2020 Instruction Type:Patient Education How to access health informa tion online - Detail Indication:BMI 36.0-36.9,adult Start:26-Mar-2020 Instruction Type:Patient Education Patient Instructions Indication:BMI 36.0-36.9,adult Start:26-Mar-2020 Instruction Type:Provider Instructions for Treatment How to access health informa tion online Indication:Compliance poor (Renamed from Poor compliance) Start:16-Jan-2020 Instruction Type:Patient Education How to access health informa tion online - Detail Indication:Compliance poor (Renamed from Poor compliance) Start:16-Jan-2020 Instruction Type:Patient Education How to access health informa tion online Indication:BMI 37.0-37.9, adult Start:28-Oct-2019 Instruction Type:Patient Education How to access health informa tion online - Detail Indication:BMI 37.0-37.9, adult Start:28-Oct-2019 Instruction Type:Patient Education Patient Instructions Indication:BMI 37.0-37.9, adult Start:28-Oct-2019 Instruction Type:Provider Instructions for Treatment How to access health informa tion online Indication:Pharyngitis, acute Start:25-Oct-2019 Instruction Type:Patient Education How to access health informa tion online - Detail Indication:Pharyngitis, acute Start:25-Oct-2019 Instruction Type:Patient Education Patient Instructions Indication:Pharyngitis, acute Start:25-Oct-2019 Instruction Type:Provider Instructions for Treatment How to access health informa tion online Indication:BMI 36.0-36.9,adult Start:16-Oct-2019 Instruction Type:Patient Education How to access health informa tion online - Detail Indication:BMI 36.0-36.9,adult Start:16-Oct-2019 Instruction Type:Patient Education Patient Instructions Indication:BMI 36.0-36.9,adult Start:16-Oct-2019 Instruction Type:Provider Instructions for Treatment How to access health informa tion online Indication:BMI 36.0-36.9,adult Start:15-Jul-2019 Instruction Type:Patient Education How to access health informa tion online - Detail Indication:BMI 36.0-36.9,adult Start:15-Jul-2019 Instruction Type:Patient Education Patient Instructions Indication:BMI 36.0-36.9,adult Start:15-Jul-2019 Instruction Type:Provider Instructions for Treatment How to access health informa tion online Indication:Nonsmoker Start:23-May-2019 Instruction Type:Patient Education How to access health informa tion online - Detail Indication:Nonsmoker Start:23-May-2019 Instruction Type:Patient Education Patient Instructions Indication:Nonsmoker Start:23-May-2019 Instruction Type:Provider Instructions for Treatment How to access health informa tion online Indication:Nonsmoker Start:07-Jan-2019 Instruction Type:Patient Education How to access health informa tion online - Detail Indication:Nonsmoker Start:07-Jan-2019 Instruction Type:Patient Education How to access health informa tion online - Detail Indication:Nonsmoker Start:07-Jan-2019 Instruction Type:Patient Education Patient Instructions Indication:Nonsmoker Start:07-Jan-2019 Instruction Type:Provider Instructions for Treatment How to access health informa tion online Indication:Nonsmoker Start:27-Sep-2018 Instruction Type:Patient Education How to access health informa tion online - Detail Indication:Nonsmoker Start:27-Sep-2018 Instruction Type:Patient Education Patient Instructions Indication:Nonsmoker Start:27-Sep-2018 Instruction Type:Provider Instructions for Treatment How to access health informa tion online Indication:Nonsmoker Start:27-Aug-2018 Instruction Type:Patient Education How to access health informa tion online - Detail Indication:Nonsmoker Start:27-Aug-2018 Instruction Type:Patient Education Patient Instructions Indication:Nonsmoker Start:27-Aug-2018 Instruction Type:Provider Instructions for Treatment How to access health informa tion online Indication:Nonsmoker Start:04-May-2018 Instruction Type:Patient Education How to access health informa tion online - Detail Indication:Nonsmoker Start:04-May-2018 Instruction Type:Patient Education Patient Instructions Indication:Nonsmoker Start:04-May-2018 Instruction Type:Provider Instructions for Treatment How to access health informa tion online Indication:Body mass index 35.0-35.9, adult Start:07-Feb-2018 Instruction Type:Patient Education How to access health informa tion online - Detail Indication:Body mass index 35.0-35.9, adult Start:07-Feb-2018 Instruction Type:Patient Education Patient Instructions Indication:Body mass index 35.0-35.9, adult Start:07-Feb-2018 Instruction Type:Provider Instructions for Treatment How to access health informa tion online Indication:Nonsmoker Start:03-Aug-2017 Instruction Type:Patient Education How to access health informa tion online - Detail Indication:Nonsmoker Start:03-Aug-2017 Instruction Type:Patient Education Patient Instructions Indication:Influenza Start:03-Aug-2017 Instruction Type:Provider Instructions for Treatment How to access health informa tion online Indication:Nonsmoker Start:12-May-2017 Instruction Type:Patient Education How to access health informa tion online - Detail Indication:Nonsmoker Start:12-May-2017 Instruction Type:Patient Education Patient Instructions Indication:Nonsmoker Start:12-May-2017 Instruction Type:Provider Instructions for Treatment How to access health informa tion online Indication:Nonsmoker Start:09-Feb-2017 Instruction Type:Patient Education How to access health informa tion online - Detail Indication:Nonsmoker Start:09-Feb-2017 Instruction Type:Patient Education Patient Instructions Indication:Nonsmoker Start:09-Feb-2017 Instruction Type:Provider Instructions for Treatment How to access health informa tion online Indication:Nonsmoker Start:22-Dec-2016 Instruction Type:Patient Education How to access health informa tion online - Detail Indication:Nonsmoker Start:22-Dec-2016 Instruction Type:Patient Education Patient Instructions Indication:Nonsmoker Start:22-Dec-2016 Instruction Type:Provider Instructions for Treatment Patient Instructions Indication:Benign essential hypertension Start:28-Jul-2016 Instruction Type:Provider Instructions for Treatment How to access health informa tion online Indication:Benign essential hypertension Start:28-Jul-2016 Instruction Type:Patient Education How to access health informa tion online - Detail Indication:Benign essential hypertension Start:28-Jul-2016 Instruction Type:Patient Education How to access health informa tion online Indication:Nonsmoker Start:05-Jul-2016 Instruction Type:Patient Education How to access health informa tion online - Detail Indication:Nonsmoker Start:05-Jul-2016 Instruction Type:Patient Education Patient Instructions Indication:Nonsmoker Start:05-Jul-2016 Instruction Type:Provider Instructions for Treatment How to access health informa tion online Indication:Annual physical exam Start:25-Feb-2016 Instruction Type:Patient Education How to access health informa tion online - Detail Indication:Annual physical exam Start:25-Feb-2016 Instruction Type:Patient Education Patient Instructions Indication:Annual physical exam Start:25-Feb-2016 Instruction Type:Provider Instructions for Treatment How to access health informa tion online Indication:Mixed hyperlipidemia Start:27-Nov-2015 Instruction Type:Patient Education How to access health informa tion online - Detail Indication:Mixed hyperlipidemia Start:27-Nov-2015 Instruction Type:Patient Education Patient Instructions Indication:Mixed hyperlipidemia Start:27-Nov-2015 Instruction Type:Provider Instructions for Treatment How to access health informa tion online Indication:Gastroesophageal reflux disease without esophagitis Start:29-May-2015 Instruction Type:Patient Education How to access health informa tion online - Detail Indication:Gastroesophageal reflux disease without esophagitis Start:29-May-2015 Instruction Type:Patient Education Patient Instructions Indication:Gastroesophageal reflux disease without esophagitis Start:29-May-2015 Instruction Type:Provider Instructions for Treatment Patient Instructions Indication:Other allergic rhinitis Start:27-Jan-2015 Instruction Type:Provider Instructions for Treatment Patient Instructions Indication:Benign essential hypertension Start:07-Oct-2014 Instruction Type:Provider Instructions for Treatment How to access health informa tion online Indication:Abdominal pain, acute, right upper quadrant Start:29-Aug-2014 Instruction Type:Patient Education How to access health informa tion online - Detail Indication:Abdominal pain, acute, right upper quadrant Start:29-Aug-2014 Instruction Type:Patient Education Patient Instructions Indication:Abdominal pain, acute, right upper quadrant Start:29-Aug-2014 Instruction Type:Provider Instructions for Treatment Patient Instructions Indication:Abdominal pain, acute, right upper quadrant Start:26-Aug-2014 Instruction Type:Provider Instructions for Treatment Patient Instructions Indication:Knee pain Start:24-Dec-2013 Instruction Type:Provider Instructions for Treatment Patient Instructions Indication:Benign essential hypertension Start:22-May-2013 Instruction Type:Provider Instructions for Treatment Patient Instructions Indication:Back pain Start:26-Apr-2013 Instruction Type:Provider Instructions for Treatment Patient Instructions Indication:Insect bite Start:05-Mar-2013 Instruction Type:Provider Instructions for Treatment Patient Instructions Indication:Gastroesophageal reflux disease without esophagitis Start:27-Apr-2012 Instruction Type:Provider Instructions for Treatment [facility] Work Phone: Instructions* Name Dates Details Patient Instructions Indication:Nonsmoker Start:28-Apr-2023 Instruction Type:Provider Instructions for Treatment How to Access Health Informa tion Online using Patient Portal and [employer]rd [employer] Apps Indication:Nonsmoker Start:28-Apr-2023 Instruction Type:Patient Education Patient Instructions Indication:ADD (attention deficit disorder) without hyperactivity Start:07-Apr-2023 Instruction Type:Provider Instructions for Treatment How to Access Health Informa tion Online using Patient Portal and [employer] Apps Indication:ADD (attention deficit disorder) without hyperactivity Start:07-Apr-2023 Instruction Type:Patient Education Patient Instructions Indication:Nonsmoker Start:05-Jan-2023 Instruction Type:Provider Instructions for Treatment How to Access Health Informa tion Online using Patient Portal and [employer]rd [employer] Apps Indication:Nonsmoker Start:05-Jan-2023 Instruction Type:Patient Education Patient Instructions Indication:BMI 39.0-39.9,adult Start:15-Dec-2022 Instruction Type:Provider Instructions for Treatment How to Access Health Informa tion Online using Patient Portal and [employer]rd [employer] Apps Indication:BMI 39.0-39.9,adult Start:15-Dec-2022 Instruction Type:Patient Education How to Access Health Informa tion Online using Patient Portal and [employer] Apps Indication:Benign essential hypertension Start:02-Dec-2022 Instruction Type:Patient Education Patient Instructions Indication:Benign essential hypertension Start:02-Dec-2022 Instruction Type:Provider Instructions for Treatment Patient Instructions Indication:Nonsmoker Start:03-Jun-2022 Instruction Type:Provider Instructions for Treatment How to Access Health Informa tion Online using Patient Portal and [employer] Apps Indication:Nonsmoker Start:03-Jun-2022 Instruction Type:Patient Education How to Access Health Informa tion Online using Patient Portal and [employer] Apps Indication:Nonsmoker Start:22-Oct-2021 Instruction Type:Patient Education Patient Instructions Indication:Nonsmoker Start:22-Oct-2021 Instruction Type:Provider Instructions for Treatment Patient Instructions Indication:Nonsmoker Start:07-May-2021 Instruction Type:Provider Instructions for Treatment How to Access Health Informa tion Online using Patient Portal and [employer] Apps Indication:Nonsmoker Start:07-May-2021 Instruction Type:Patient Education Patient Instructions Indication:BMI 36.0-36.9,adult Start:05-Nov-2020 Instruction Type:Provider Instructions for Treatment How to Access Health Informa tion Online using Patient Portal and [employer] Apps Indication:BMI 36.0-36.9,adult Start:05-Nov-2020 Instruction Type:Patient Education How to access health informa tion online Indication:BMI 36.0-36.9,adult Start:26-Mar-2020 Instruction Type:Patient Education How to access health informa tion online - Detail Indication:BMI 36.0-36.9,adult Start:26-Mar-2020 Instruction Type:Patient Education Patient Instructions Indication:BMI 36.0-36.9,adult Start:26-Mar-2020 Instruction Type:Provider Instructions for Treatment How to access health informa tion online Indication:Compliance poor (Renamed from Poor compliance) Start:16-Jan-2020 Instruction Type:Patient Education How to access health informa tion online - Detail Indication:Compliance poor (Renamed from Poor compliance) Start:16-Jan-2020 Instruction Type:Patient Education How to access health informa tion online Indication:BMI 37.0-37.9, adult Start:28-Oct-2019 Instruction Type:Patient Education How to access health informa tion online - Detail Indication:BMI 37.0-37.9, adult Start:28-Oct-2019 Instruction Type:Patient Education Patient Instructions Indication:BMI 37.0-37.9, adult Start:28-Oct-2019 Instruction Type:Provider Instructions for Treatment How to access health informa tion online Indication:Pharyngitis, acute Start:25-Oct-2019 Instruction Type:Patient Education How to access health informa tion online - Detail Indication:Pharyngitis, acute Start:25-Oct-2019 Instruction Type:Patient Education Patient Instructions Indication:Pharyngitis, acute Start:25-Oct-2019 Instruction Type:Provider Instructions for Treatment How to access health informa tion online Indication:BMI 36.0-36.9,adult Start:16-Oct-2019 Instruction Type:Patient Education How to access health informa tion online - Detail Indication:BMI 36.0-36.9,adult Start:16-Oct-2019 Instruction Type:Patient Education Patient Instructions Indication:BMI 36.0-36.9,adult Start:16-Oct-2019 Instruction Type:Provider Instructions for Treatment How to access health informa tion online Indication:BMI 36.0-36.9,adult Start:15-Jul-2019 Instruction Type:Patient Education How to access health informa tion online - Detail Indication:BMI 36.0-36.9,adult Start:15-Jul-2019 Instruction Type:Patient Education Patient Instructions Indication:BMI 36.0-36.9,adult Start:15-Jul-2019 Instruction Type:Provider Instructions for Treatment How to access health informa tion online Indication:Nonsmoker Start:23-May-2019 Instruction Type:Patient Education How to access health informa tion online - Detail Indication:Nonsmoker Start:23-May-2019 Instruction Type:Patient Education Patient Instructions Indication:Nonsmoker Start:23-May-2019 Instruction Type:Provider Instructions for Treatment How to access health informa tion online Indication:Nonsmoker Start:07-Jan-2019 Instruction Type:Patient Education How to access health informa tion online - Detail Indication:Nonsmoker Start:07-Jan-2019 Instruction Type:Patient Education How to access health informa tion online - Detail Indication:Nonsmoker Start:07-Jan-2019 Instruction Type:Patient Education Patient Instructions Indication:Nonsmoker Start:07-Jan-2019 Instruction Type:Provider Instructions for Treatment How to access health informa tion online Indication:Nonsmoker Start:27-Sep-2018 Instruction Type:Patient Education How to access health informa tion online - Detail Indication:Nonsmoker Start:27-Sep-2018 Instruction Type:Patient Education Patient Instructions Indication:Nonsmoker Start:27-Sep-2018 Instruction Type:Provider Instructions for Treatment How to access health informa tion online Indication:Nonsmoker Start:27-Aug-2018 Instruction Type:Patient Education How to access health informa tion online - Detail Indication:Nonsmoker Start:27-Aug-2018 Instruction Type:Patient Education Patient Instructions Indication:Nonsmoker Start:27-Aug-2018 Instruction Type:Provider Instructions for Treatment How to access health informa tion online Indication:Nonsmoker Start:04-May-2018 Instruction Type:Patient Education How to access health informa tion online - Detail Indication:Nonsmoker Start:04-May-2018 Instruction Type:Patient Education Patient Instructions Indication:Nonsmoker Start:04-May-2018 Instruction Type:Provider Instructions for Treatment How to access health informa tion online Indication:Body mass index 35.0-35.9, adult Start:07-Feb-2018 Instruction Type:Patient Education How to access health informa tion online - Detail Indication:Body mass index 35.0-35.9, adult Start:07-Feb-2018 Instruction Type:Patient Education Patient Instructions Indication:Body mass index 35.0-35.9, adult Start:07-Feb-2018 Instruction Type:Provider Instructions for Treatment How to access health informa tion online Indication:Nonsmoker Start:03-Aug-2017 Instruction Type:Patient Education How to access health informa tion online - Detail Indication:Nonsmoker Start:03-Aug-2017 Instruction Type:Patient Education Patient Instructions Indication:Influenza Start:03-Aug-2017 Instruction Type:Provider Instructions for Treatment How to access health informa tion online Indication:Nonsmoker Start:12-May-2017 Instruction Type:Patient Education How to access health informa tion online - Detail Indication:Nonsmoker Start:12-May-2017 Instruction Type:Patient Education Patient Instructions Indication:Nonsmoker Start:12-May-2017 Instruction Type:Provider Instructions for Treatment How to access health informa tion online Indication:Nonsmoker Start:09-Feb-2017 Instruction Type:Patient Education How to access health informa tion online - Detail Indication:Nonsmoker Start:09-Feb-2017 Instruction Type:Patient Education Patient Instructions Indication:Nonsmoker Start:09-Feb-2017 Instruction Type:Provider Instructions for Treatment How to access health informa tion online Indication:Nonsmoker Start:22-Dec-2016 Instruction Type:Patient Education How to access health informa tion online - Detail Indication:Nonsmoker Start:22-Dec-2016 Instruction Type:Patient Education Patient Instructions Indication:Nonsmoker Start:22-Dec-2016 Instruction Type:Provider Instructions for Treatment Patient Instructions Indication:Benign essential hypertension Start:28-Jul-2016 Instruction Type:Provider Instructions for Treatment How to access health informa tion online Indication:Benign essential hypertension Start:28-Jul-2016 Instruction Type:Patient Education How to access health informa tion online - Detail Indication:Benign essential hypertension Start:28-Jul-2016 Instruction Type:Patient Education How to access health informa tion online Indication:Nonsmoker Start:05-Jul-2016 Instruction Type:Patient Education How to access health informa tion online - Detail Indication:Nonsmoker Start:05-Jul-2016 Instruction Type:Patient Education Patient Instructions Indication:Nonsmoker Start:05-Jul-2016 Instruction Type:Provider Instructions for Treatment How to access health informa tion online Indication:Annual physical exam Start:25-Feb-2016 Instruction Type:Patient Education How to access health informa tion online - Detail Indication:Annual physical exam Start:25-Feb-2016 Instruction Type:Patient Education Patient Instructions Indication:Annual physical exam Start:25-Feb-2016 Instruction Type:Provider Instructions for Treatment How to access health informa tion online Indication:Mixed hyperlipidemia Start:27-Nov-2015 Instruction Type:Patient Education How to access health informa tion online - Detail Indication:Mixed hyperlipidemia Start:27-Nov-2015 Instruction Type:Patient Education Patient Instructions Indication:Mixed hyperlipidemia Start:27-Nov-2015 Instruction Type:Provider Instructions for Treatment How to access health informa tion online Indication:Gastroesophageal reflux disease without esophagitis Start:29-May-2015 Instruction Type:Patient Education How to access health informa tion online - Detail Indication:Gastroesophageal reflux disease without esophagitis Start:29-May-2015 Instruction Type:Patient Education Patient Instructions Indication:Gastroesophageal reflux disease without esophagitis Start:29-May-2015 Instruction Type:Provider Instructions for Treatment Patient Instructions Indication:Other allergic rhinitis Start:27-Jan-2015 Instruction Type:Provider Instructions for Treatment Patient Instructions Indication:Benign essential hypertension Start:07-Oct-2014 Instruction Type:Provider Instructions for Treatment How to access health informa tion online Indication:Abdominal pain, acute, right upper quadrant Start:29-Aug-2014 Instruction Type:Patient Education How to access health informa tion online - Detail Indication:Abdominal pain, acute, right upper quadrant Start:29-Aug-2014 Instruction Type:Patient Education Patient Instructions Indication:Abdominal pain, acute, right upper quadrant Start:29-Aug-2014 Instruction Type:Provider Instructions for Treatment Patient Instructions Indication:Abdominal pain, acute, right upper quadrant Start:26-Aug-2014 Instruction Type:Provider Instructions for Treatment Patient Instructions Indication:Knee pain Start:24-Dec-2013 Instruction Type:Provider Instructions for Treatment Patient Instructions Indication:Benign essential hypertension Start:22-May-2013 Instruction Type:Provider Instructions for Treatment Patient Instructions Indication:Back pain Start:26-Apr-2013 Instruction Type:Provider Instructions for Treatment Patient Instructions Indication:Insect bite Start:05-Mar-2013 Instruction Type:Provider Instructions for Treatment Patient Instructions Indication:Gastroesophageal reflux disease without esophagitis Start:27-Apr-2012 Instruction Type:Provider Instructions for Treatment [facility] Work Phone: reason for referral (narrative)No reason for [facility]: Reason for visit Narrative* Imaging (Routine) - Pending Review Specialty Diagnoses / Procedures Referred By Contac t Referred To Contact Radiology Diagnoses Essential (primary) hypertension Procedures CT cardiac scoring wo IV contrast Berta Head DO [id number] [facility] [address] [place] [address] Phone: tel:[phone] fax: Referral ID Status Reason Start Date Expiration Date Visits Requested Visits Authorized [id number] Pending Review Perform Procedure 4 07/11/[address] [facility] Work Phone: Reason for visit Narrative* Imaging (Routine) - Authorized Specialty Diagnoses / Procedures Referred By Atif t Referred To Contact Radiology Diagnoses Abnormal result of other cardiovascular function study Procedures CT angio coronary art with heartflow if score >30% Berta Head DO [id number] [facility] [address] [place] [address] Phone: tel:[phone] fax:[phone] Referral ID Status Reason Start Date Expiration Date Visits Requested Visits Authorized [id number] Authorized Perform Procedure 12/04/2024 12/04/[address] [facility] Work Phone: Summary Purpose Family History No Family History Records FoundNo Family History Records FoundNo Family History Records FoundNo Family History Records Found Advance Directives No Advanced Directives Records Found Name Dates Details Immunization Registry [place] - Effective on 10/28/2020. Expiration date unspecified Effective:28-Oct-2020 Name Dates Details Immunization Registry [place] - Effective on 10/28/2020. Expiration date unspecified Effective:28-Oct-2020 Name Dates Details Immunization Registry [place] - Effective on 10/28/2020. Expiration date unspecified Effective:28-Oct-2020 Name Dates Details Immunization Registry [place] - Effective on 10/28/2020. Expiration date unspecified Effective:28-Oct-2020 Name Dates Details Immunization Registry [place] - Effective on 10/28/2020. Expiration date unspecified Effective:28-Oct-2020 Name Dates Details Immunization Registry [place] - Effective on 10/28/2020. Expiration date unspecified Effective:28-Oct-2020 Name Dates Details Immunization Registry [place] - Effective on 10/28/2020. Expiration date unspecified Effective:28-Oct-2020 Name Dates Details Immunization Registry [place] - Effective on 10/28/2020. Expiration date unspecified Effective:28-Oct-2020 Name Dates Details Immunization Registry [place] - Effective on 10/28/2020. Expiration date unspecified Effective:28-Oct-2020 Name Dates Details Immunization Registry [place] - Effective on 10/28/2020. Expiration date unspecified Effective:28-Oct-2020 Name Dates Details Immunization Registry [place] - Effective on 10/28/2020. Expiration date unspecified Effective:28-Oct-2020 Name Dates Details Immunization Registry [place] - Effective on 10/28/2020. Expiration date unspecified Effective:28-Oct-2020 Name Dates Details Immunization Registry [place] - Effective on 10/28/2020. Expiration date unspecified Effective:28-Oct-2020 Name Dates Details Immunization Registry [place] - Effective on 10/28/2020. Expiration date unspecified Effective:28-Oct-2020 Name Dates Details Immunization Registry [place] - Effective on 10/28/2020. Expiration date unspecified Effective:28-Oct-2020 Name Dates Details Immunization Registry [place] - Effective on 10/28/2020. Expiration date unspecified Effective:28-Oct-2020 Name Dates Details Immunization Registry [place] - Effective on 10/28/2020. Expiration date unspecified Effective:28-Oct-2020 Name Dates Details Immunization Registry [place] - Effective on 10/28/2020. Expiration date unspecified Effective:28-Oct-2020 Name Dates Details Immunization Registry [place] - Effective on 10/28/2020. Expiration date unspecified Effective:28-Oct-2020 Name Dates Details Immunization Registry [place] - Effective on 10/28/2020. Expiration date unspecified Effective:28-Oct-2020 Name Dates Details Immunization Registry [place] - Effective on 10/28/2020. Expiration date unspecified Effective:28-Oct-2020 Name Dates Details Immunization Registry [place] - Effective on 10/28/2020. Expiration date unspecified Effective:28-Oct-2020 Advance Directive Response Recorded Date/ Time Advance Directives No August 29, 2014 9:39pm Living Will No April 12, 2021 6:31pm Power of Dish Carrier No March 6:31pm Advance Directive Response Recorded Date/ Time Advance Directives No August 29, 2014 10:39pm Instructions Name Dates Details Nonsmoker : How to access he alth information online Indication:Nonsmoker Nonsmoker : How to access he alth information online - Detail Indication:Nonsmoker Nonsmoker : Patient Instruct ions Indication:Nonsmoker Body mass index 35.0-35.9, a dult : How to access health information online Indication:Body mass index 35.0-35.9, adult Body mass index 35.0-35.9, a dult : How to access health information online - Detail Indication:Body mass index 35.0-35.9, adult Body mass index 35.0-35.9, a dult : Patient Instructions Indication:Body mass index 35.0-35.9, adult Influenza : Patient Instruct ions Indication:Influenza Benign essential hypertensio n : Patient Instructions Indication:Benign essential hypertension Benign essential hypertensio n : How to access health information online Indication:Benign essential hypertension Benign essential hypertensio n : How to access health information online - Detail Indication:Benign essential hypertension Annual physical exam : How t o access health information online Indication:Annual physical exam Annual physical exam : How t o access health information online - Detail Indication:Annual physical exam Annual physical exam : Santhosh nt Instructions Indication:Annual physical exam Mixed hyperlipidemia : How t o access health information online Indication:Mixed hyperlipidemia Mixed hyperlipidemia : How t o access health information online - Detail Indication:Mixed hyperlipidemia Mixed hyperlipidemia : Patie nt Instructions Indication:Mixed hyperlipidemia Gastroesophageal reflux dise ase without esophagitis : How to access health information online Indication:Gastroesophageal reflux disease without esophagitis Gastroesophageal reflux dise ase without esophagitis : How to access health information online - Detail Indication:Gastroesophageal reflux disease without esophagitis Gastroesophageal reflux dise ase without esophagitis : Patient Instructions Indication:Gastroesophageal reflux disease without esophagitis Other allergic rhinitis : Georgette sandra Instructions Indication:Other allergic rhinitis Abdominal pain, acute, right upper quadrant : How to access health information online Indication:Abdominal pain, acute, right upper quadrant Abdominal pain, acute, right upper quadrant : How to access health information online - Detail Indication:Abdominal pain, acute, right upper quadrant Abdominal pain, acute, right upper quadrant : Patient Instructions Indication:Abdominal pain, acute, right upper quadrant Knee pain : Patient Instruct ions Indication:Knee pain Back pain : Patient Instruct ions Indication:Back pain Insect bite : Patient Instru ctions Indication:Insect bite Name Dates Details Nonsmoker : How to access he alth information online Indication:Nonsmoker Nonsmoker : How to access he alth information online - Detail Indication:Nonsmoker Nonsmoker : Patient Instruct ions Indication:Nonsmoker Body mass index 35.0-35.9, a dult : How to access health information online Indication:Body mass index 35.0-35.9, adult Body mass index 35.0-35.9, a dult : How to access health information online - Detail Indication:Body mass index 35.0-35.9, adult Body mass index 35.0-35.9, a dult : Patient Instructions Indication:Body mass index 35.0-35.9, adult Influenza : Patient Instruct ions Indication:Influenza Benign essential hypertensio n : Patient Instructions Indication:Benign essential hypertension Benign essential hypertensio n : How to access health information online Indication:Benign essential hypertension Benign essential hypertensio n : How to access health information online - Detail Indication:Benign essential hypertension Annual physical exam : How t o access health information online Indication:Annual physical exam Annual physical exam : How t o access health information online - Detail Indication:Annual physical exam Annual physical exam : Santhosh nt Instructions Indication:Annual physical exam Mixed hyperlipidemia : How t o access health information online Indication:Mixed hyperlipidemia Mixed hyperlipidemia : How t o access health information online - Detail Indication:Mixed hyperlipidemia Mixed hyperlipidemia : Patie nt Instructions Indication:Mixed hyperlipidemia Gastroesophageal reflux dise ase without esophagitis : How to access health information online Indication:Gastroesophageal reflux disease without esophagitis Gastroesophageal reflux dise ase without esophagitis : How to access health information online - Detail Indication:Gastroesophageal reflux disease without esophagitis Gastroesophageal reflux dise ase without esophagitis : Patient Instructions Indication:Gastroesophageal reflux disease without esophagitis Other allergic rhinitis : Georgette sandra Instructions Indication:Other allergic rhinitis Abdominal pain, acute, right upper quadrant : How to access health information online Indication:Abdominal pain, acute, right upper quadrant Abdominal pain, acute, right upper quadrant : How to access health information online - Detail Indication:Abdominal pain, acute, right upper quadrant Abdominal pain, acute, right upper quadrant : Patient Instructions Indication:Abdominal pain, acute, right upper quadrant Knee pain : Patient Instruct ions Indication:Knee pain Back pain : Patient Instruct ions Indication:Back pain Insect bite : Patient Instru ctions Indication:Insect bite Name Dates Details Nonsmoker : How to access he alth information online Indication:Nonsmoker Nonsmoker : How to access he alth information online - Detail Indication:Nonsmoker Nonsmoker : Patient Instruct ions Indication:Nonsmoker Body mass index 35.0-35.9, a dult : How to access health information online Indication:Body mass index 35.0-35.9, adult Body mass index 35.0-35.9, a dult : How to access health information online - Detail Indication:Body mass index 35.0-35.9, adult Body mass index 35.0-35.9, a dult : Patient Instructions Indication:Body mass index 35.0-35.9, adult Influenza : Patient Instruct ions Indication:Influenza Benign essential hypertensio n : Patient Instructions Indication:Benign essential hypertension Benign essential hypertensio n : How to access health information online Indication:Benign essential hypertension Benign essential hypertensio n : How to access health information online - Detail Indication:Benign essential hypertension Annual physical exam : How t o access health information online Indication:Annual physical exam Annual physical exam : How t o access health information online - Detail Indication:Annual physical exam Annual physical exam : Patie nt Instructions Indication:Annual physical exam Mixed hyperlipidemia : How t o access health information online Indication:Mixed hyperlipidemia Mixed hyperlipidemia : How t o access health information online - Detail Indication:Mixed hyperlipidemia Mixed hyperlipidemia : Patie nt Instructions Indication:Mixed hyperlipidemia Gastroesophageal reflux dise ase without esophagitis : How to access health information online Indication:Gastroesophageal reflux disease without esophagitis Gastroesophageal reflux dise ase without esophagitis : How to access health information online - Detail Indication:Gastroesophageal reflux disease without esophagitis Gastroesophageal reflux dise ase without esophagitis : Patient Instructions Indication:Gastroesophageal reflux disease without esophagitis Other allergic rhinitis : Georgette sandra Instructions Indication:Other allergic rhinitis Abdominal pain, acute, right upper quadrant : How to access health information online Indication:Abdominal pain, acute, right upper quadrant Abdominal pain, acute, right upper quadrant : How to access health information online - Detail Indication:Abdominal pain, acute, right upper quadrant Abdominal pain, acute, right upper quadrant : Patient Instructions Indication:Abdominal pain, acute, right upper quadrant Knee pain : Patient Instruct ions Indication:Knee pain Back pain : Patient Instruct ions Indication:Back pain Insect bite : Patient Instru ctions Indication:Insect bite Name Dates Details Nonsmoker : How to access he alth information online Indication:Nonsmoker Nonsmoker : How to access he alth information online - Detail Indication:Nonsmoker Nonsmoker : Patient Instruct ions Indication:Nonsmoker Body mass index 35.0-35.9, a dult : How to access health information online Indication:Body mass index 35.0-35.9, adult Body mass index 35.0-35.9, a dult : How to access health information online - Detail Indication:Body mass index 35.0-35.9, adult Body mass index 35.0-35.9, a dult : Patient Instructions Indication:Body mass index 35.0-35.9, adult Influenza : Patient Instruct ions Indication:Influenza Benign essential hypertensio n : Patient Instructions Indication:Benign essential hypertension Benign essential hypertensio n : How to access health information online Indication:Benign essential hypertension Benign essential hypertensio n : How to access health information online - Detail Indication:Benign essential hypertension Annual physical exam : How t o access health information online Indication:Annual physical exam Annual physical exam : How t o access health information online - Detail Indication:Annual physical exam Annual physical exam : Patie nt Instructions Indication:Annual physical exam Mixed hyperlipidemia : How t o access health information online Indication:Mixed hyperlipidemia Mixed hyperlipidemia : How t o access health information online - Detail Indication:Mixed hyperlipidemia Mixed hyperlipidemia : Patie nt Instructions Indication:Mixed hyperlipidemia Gastroesophageal reflux dise ase without esophagitis : How to access health information online Indication:Gastroesophageal reflux disease without esophagitis Gastroesophageal reflux dise ase without esophagitis : How to access health information online - Detail Indication:Gastroesophageal reflux disease without esophagitis Gastroesophageal reflux dise ase without esophagitis : Patient Instructions Indication:Gastroesophageal reflux disease without esophagitis Other allergic rhinitis : Pa marcelant Instructions Indication:Other allergic rhinitis Abdominal pain, acute, right upper quadrant : How to access health information online Indication:Abdominal pain, acute, right upper quadrant Abdominal pain, acute, right upper quadrant : How to access health information online - Detail Indication:Abdominal pain, acute, right upper quadrant Abdominal pain, acute, right upper quadrant : Patient Instructions Indication:Abdominal pain, acute, right upper quadrant Knee pain : Patient Instruct ions Indication:Knee pain Back pain : Patient Instruct ions Indication:Back pain Insect bite : Patient Instru ctions Indication:Insect bite Name Dates Details How to access health informa tion online Indication:Nonsmoker Start:07-Jan-2019 Instruction Type:Patient Education How to access health informa tion online - Detail Indication:Nonsmoker Start:07-Jan-2019 Instruction Type:Patient Education Patient Instructions Indication:Nonsmoker Start:07-Jan-2019 Instruction Type:Provider Instructions for Treatment How to access health informa tion online Indication:Nonsmoker Start:27-Sep-2018 Instruction Type:Patient Education How to access health informa tion online - Detail Indication:Nonsmoker Start:27-Sep-2018 Instruction Type:Patient Education Patient Instructions Indication:Nonsmoker Start:27-Sep-2018 Instruction Type:Provider Instructions for Treatment How to access health informa tion online Indication:Nonsmoker Start:27-Aug-2018 Instruction Type:Patient Education How to access health informa tion online - Detail Indication:Nonsmoker Start:27-Aug-2018 Instruction Type:Patient Education Patient Instructions Indication:Nonsmoker Start:27-Aug-2018 Instruction Type:Provider Instructions for Treatment How to access health informa tion online Indication:Nonsmoker Start:04-May-2018 Instruction Type:Patient Education How to access health informa tion online - Detail Indication:Nonsmoker Start:04-May-2018 Instruction Type:Patient Education Patient Instructions Indication:Nonsmoker Start:04-May-2018 Instruction Type:Provider Instructions for Treatment How to access health informa tion online Indication:Body mass index 35.0-35.9, adult Start:07-Feb-2018 Instruction Type:Patient Education How to access health informa tion online - Detail Indication:Body mass index 35.0-35.9, adult Start:07-Feb-2018 Instruction Type:Patient Education Patient Instructions Indication:Body mass index 35.0-35.9, adult Start:07-Feb-2018 Instruction Type:Provider Instructions for Treatment How to access health informa tion online Indication:Nonsmoker Start:03-Aug-2017 Instruction Type:Patient Education How to access health informa tion online - Detail Indication:Nonsmoker Start:03-Aug-2017 Instruction Type:Patient Education Patient Instructions Indication:Influenza Start:03-Aug-2017 Instruction Type:Provider Instructions for Treatment How to access health informa tion online Indication:Nonsmoker Start:12-May-2017 Instruction Type:Patient Education How to access health informa tion online - Detail Indication:Nonsmoker Start:12-May-2017 Instruction Type:Patient Education Patient Instructions Indication:Nonsmoker Start:12-May-2017 Instruction Type:Provider Instructions for Treatment How to access health informa tion online Indication:Nonsmoker Start:09-Feb-2017 Instruction Type:Patient Education How to access health informa tion online - Detail Indication:Nonsmoker Start:09-Feb-2017 Instruction Type:Patient Education Patient Instructions Indication:Nonsmoker Start:09-Feb-2017 Instruction Type:Provider Instructions for Treatment How to access health informa tion online Indication:Nonsmoker Start:22-Dec-2016 Instruction Type:Patient Education How to access health informa tion online - Detail Indication:Nonsmoker Start:22-Dec-2016 Instruction Type:Patient Education Patient Instructions Indication:Nonsmoker Start:22-Dec-2016 Instruction Type:Provider Instructions for Treatment Patient Instructions Indication:Benign essential hypertension Start:28-Jul-2016 Instruction Type:Provider Instructions for Treatment How to access health informa tion online Indication:Benign essential hypertension Start:28-Jul-2016 Instruction Type:Patient Education How to access health informa tion online - Detail Indication:Benign essential hypertension Start:28-Jul-2016 Instruction Type:Patient Education How to access health informa tion online Indication:Nonsmoker Start:05-Jul-2016 Instruction Type:Patient Education How to access health informa tion online - Detail Indication:Nonsmoker Start:05-Jul-2016 Instruction Type:Patient Education Patient Instructions Indication:Nonsmoker Start:05-Jul-2016 Instruction Type:Provider Instructions for Treatment How to access health informa tion online Indication:Annual physical exam Start:25-Feb-2016 Instruction Type:Patient Education How to access health informa tion online - Detail Indication:Annual physical exam Start:25-Feb-2016 Instruction Type:Patient Education Patient Instructions Indication:Annual physical exam Start:25-Feb-2016 Instruction Type:Provider Instructions for Treatment How to access health informa tion online Indication:Mixed hyperlipidemia Start:27-Nov-2015 Instruction Type:Patient Education How to access health informa tion online - Detail Indication:Mixed hyperlipidemia Start:27-Nov-2015 Instruction Type:Patient Education Patient Instructions Indication:Mixed hyperlipidemia Start:27-Nov-2015 Instruction Type:Provider Instructions for Treatment How to access health informa tion online Indication:Gastroesophageal reflux disease without esophagitis Start:29-May-2015 Instruction Type:Patient Education How to access health informa tion online - Detail Indication:Gastroesophageal reflux disease without esophagitis Start:29-May-2015 Instruction Type:Patient Education Patient Instructions Indication:Gastroesophageal reflux disease without esophagitis Start:29-May-2015 Instruction Type:Provider Instructions for Treatment Patient Instructions Indication:Other allergic rhinitis Start:27-Jan-2015 Instruction Type:Provider Instructions for Treatment Patient Instructions Indication:Benign essential hypertension Start:07-Oct-2014 Instruction Type:Provider Instructions for Treatment How to access health informa tion online Indication:Abdominal pain, acute, right upper quadrant Start:29-Aug-2014 Instruction Type:Patient Education How to access health informa tion online - Detail Indication:Abdominal pain, acute, right upper quadrant Start:29-Aug-2014 Instruction Type:Patient Education Patient Instructions Indication:Abdominal pain, acute, right upper quadrant Start:29-Aug-2014 Instruction Type:Provider Instructions for Treatment Patient Instructions Indication:Abdominal pain, acute, right upper quadrant Start:26-Aug-2014 Instruction Type:Provider Instructions for Treatment Patient Instructions Indication:Knee pain Start:24-Dec-2013 Instruction Type:Provider Instructions for Treatment Patient Instructions Indication:Benign essential hypertension Start:22-May-2013 Instruction Type:Provider Instructions for Treatment Patient Instructions Indication:Back pain Start:26-Apr-2013 Instruction Type:Provider Instructions for Treatment Patient Instructions Indication:Insect bite Start:05-Mar-2013 Instruction Type:Provider Instructions for Treatment Patient Instructions Indication:Gastroesophageal reflux disease without esophagitis Start:27-Apr-2012 Instruction Type:Provider Instructions for Treatment Name Dates Details How to access health informa tion online Indication:Nonsmoker Start:23-May-2019 Instruction Type:Patient Education How to access health informa tion online - Detail Indication:Nonsmoker Start:23-May-2019 Instruction Type:Patient Education Patient Instructions Indication:Nonsmoker Start:23-May-2019 Instruction Type:Provider Instructions for Treatment How to access health informa tion online Indication:Nonsmoker Start:07-Jan-2019 Instruction Type:Patient Education How to access health informa tion online - Detail Indication:Nonsmoker Start:07-Jan-2019 Instruction Type:Patient Education Patient Instructions Indication:Nonsmoker Start:07-Jan-2019 Instruction Type:Provider Instructions for Treatment How to access health informa tion online Indication:Nonsmoker Start:27-Sep-2018 Instruction Type:Patient Education How to access health informa tion online - Detail Indication:Nonsmoker Start:27-Sep-2018 Instruction Type:Patient Education Patient Instructions Indication:Nonsmoker Start:27-Sep-2018 Instruction Type:Provider Instructions for Treatment How to access health informa tion online Indication:Nonsmoker Start:27-Aug-2018 Instruction Type:Patient Education How to access health informa tion online - Detail Indication:Nonsmoker Start:27-Aug-2018 Instruction Type:Patient Education Patient Instructions Indication:Nonsmoker Start:27-Aug-2018 Instruction Type:Provider Instructions for Treatment How to access health informa tion online Indication:Nonsmoker Start:04-May-2018 Instruction Type:Patient Education How to access health informa tion online - Detail Indication:Nonsmoker Start:04-May-2018 Instruction Type:Patient Education Patient Instructions Indication:Nonsmoker Start:04-May-2018 Instruction Type:Provider Instructions for Treatment How to access health informa tion online Indication:Body mass index 35.0-35.9, adult Start:07-Feb-2018 Instruction Type:Patient Education How to access health informa tion online - Detail Indication:Body mass index 35.0-35.9, adult Start:07-Feb-2018 Instruction Type:Patient Education Patient Instructions Indication:Body mass index 35.0-35.9, adult Start:07-Feb-2018 Instruction Type:Provider Instructions for Treatment How to access health informa tion online Indication:Nonsmoker Start:03-Aug-2017 Instruction Type:Patient Education How to access health informa tion online - Detail Indication:Nonsmoker Start:03-Aug-2017 Instruction Type:Patient Education Patient Instructions Indication:Influenza Start:03-Aug-2017 Instruction Type:Provider Instructions for Treatment How to access health informa tion online Indication:Nonsmoker Start:12-May-2017 Instruction Type:Patient Education How to access health informa tion online - Detail Indication:Nonsmoker Start:12-May-2017 Instruction Type:Patient Education Patient Instructions Indication:Nonsmoker Start:12-May-2017 Instruction Type:Provider Instructions for Treatment How to access health informa tion online Indication:Nonsmoker Start:09-Feb-2017 Instruction Type:Patient Education How to access health informa tion online - Detail Indication:Nonsmoker Start:09-Feb-2017 Instruction Type:Patient Education Patient Instructions Indication:Nonsmoker Start:09-Feb-2017 Instruction Type:Provider Instructions for Treatment How to access health informa tion online Indication:Nonsmoker Start:22-Dec-2016 Instruction Type:Patient Education How to access health informa tion online - Detail Indication:Nonsmoker Start:22-Dec-2016 Instruction Type:Patient Education Patient Instructions Indication:Nonsmoker Start:22-Dec-2016 Instruction Type:Provider Instructions for Treatment Patient Instructions Indication:Benign essential hypertension Start:28-Jul-2016 Instruction Type:Provider Instructions for Treatment How to access health informa tion online Indication:Benign essential hypertension Start:28-Jul-2016 Instruction Type:Patient Education How to access health informa tion online - Detail Indication:Benign essential hypertension Start:28-Jul-2016 Instruction Type:Patient Education How to access health informa tion online Indication:Nonsmoker Start:05-Jul-2016 Instruction Type:Patient Education How to access health informa tion online - Detail Indication:Nonsmoker Start:05-Jul-2016 Instruction Type:Patient Education Patient Instructions Indication:Nonsmoker Start:05-Jul-2016 Instruction Type:Provider Instructions for Treatment How to access health informa tion online Indication:Annual physical exam Start:25-Feb-2016 Instruction Type:Patient Education How to access health informa tion online - Detail Indication:Annual physical exam Start:25-Feb-2016 Instruction Type:Patient Education Patient Instructions Indication:Annual physical exam Start:25-Feb-2016 Instruction Type:Provider Instructions for Treatment How to access health informa tion online Indication:Mixed hyperlipidemia Start:27-Nov-2015 Instruction Type:Patient Education How to access health informa tion online - Detail Indication:Mixed hyperlipidemia Start:27-Nov-2015 Instruction Type:Patient Education Patient Instructions Indication:Mixed hyperlipidemia Start:27-Nov-2015 Instruction Type:Provider Instructions for Treatment How to access health informa tion online Indication:Gastroesophageal reflux disease without esophagitis Start:29-May-2015 Instruction Type:Patient Education How to access health informa tion online - Detail Indication:Gastroesophageal reflux disease without esophagitis Start:29-May-2015 Instruction Type:Patient Education Patient Instructions Indication:Gastroesophageal reflux disease without esophagitis Start:29-May-2015 Instruction Type:Provider Instructions for Treatment Patient Instructions Indication:Other allergic rhinitis Start:27-Jan-2015 Instruction Type:Provider Instructions for Treatment Patient Instructions Indication:Benign essential hypertension Start:07-Oct-2014 Instruction Type:Provider Instructions for Treatment How to access health informa tion online Indication:Abdominal pain, acute, right upper quadrant Start:29-Aug-2014 Instruction Type:Patient Education How to access health informa tion online - Detail Indication:Abdominal pain, acute, right upper quadrant Start:29-Aug-2014 Instruction Type:Patient Education Patient Instructions Indication:Abdominal pain, acute, right upper quadrant Start:29-Aug-2014 Instruction Type:Provider Instructions for Treatment Patient Instructions Indication:Abdominal pain, acute, right upper quadrant Start:26-Aug-2014 Instruction Type:Provider Instructions for Treatment Patient Instructions Indication:Knee pain Start:24-Dec-2013 Instruction Type:Provider Instructions for Treatment Patient Instructions Indication:Benign essential hypertension Start:22-May-2013 Instruction Type:Provider Instructions for Treatment Patient Instructions Indication:Back pain Start:26-Apr-2013 Instruction Type:Provider Instructions for Treatment Patient Instructions Indication:Insect bite Start:05-Mar-2013 Instruction Type:Provider Instructions for Treatment Patient Instructions Indication:Gastroesophageal reflux disease without esophagitis Start:27-Apr-2012 Instruction Type:Provider Instructions for Treatment Name Dates Details How to access health informa tion online Indication:BMI 36.0-36.9,adult Start:26-Mar-2020 Instruction Type:Patient Education How to access health informa tion online - Detail Indication:BMI 36.0-36.9,adult Start:26-Mar-2020 Instruction Type:Patient Education Patient Instructions Indication:BMI 36.0-36.9,adult Start:26-Mar-2020 Instruction Type:Provider Instructions for Treatment How to access health informa tion online Indication:Compliance poor (Renamed from Poor compliance) Start:16-Jan-2020 Instruction Type:Patient Education How to access health informa tion online - Detail Indication:Compliance poor (Renamed from Poor compliance) Start:16-Jan-2020 Instruction Type:Patient Education How to access health informa tion online Indication:BMI 37.0-37.9, adult Start:28-Oct-2019 Instruction Type:Patient Education How to access health informa tion online - Detail Indication:BMI 37.0-37.9, adult Start:28-Oct-2019 Instruction Type:Patient Education Patient Instructions Indication:BMI 37.0-37.9, adult Start:28-Oct-2019 Instruction Type:Provider Instructions for Treatment How to access health informa tion online Indication:Pharyngitis, acute Start:25-Oct-2019 Instruction Type:Patient Education How to access health informa tion online - Detail Indication:Pharyngitis, acute Start:25-Oct-2019 Instruction Type:Patient Education Patient Instructions Indication:Pharyngitis, acute Start:25-Oct-2019 Instruction Type:Provider Instructions for Treatment How to access health informa tion online Indication:BMI 36.0-36.9,adult Start:16-Oct-2019 Instruction Type:Patient Education How to access health informa tion online - Detail Indication:BMI 36.0-36.9,adult Start:16-Oct-2019 Instruction Type:Patient Education Patient Instructions Indication:BMI 36.0-36.9,adult Start:16-Oct-2019 Instruction Type:Provider Instructions for Treatment How to access health informa tion online Indication:BMI 36.0-36.9,adult Start:15-Jul-2019 Instruction Type:Patient Education How to access health informa tion online - Detail Indication:BMI 36.0-36.9,adult Start:15-Jul-2019 Instruction Type:Patient Education Patient Instructions Indication:BMI 36.0-36.9,adult Start:15-Jul-2019 Instruction Type:Provider Instructions for Treatment How to access health informa tion online Indication:Nonsmoker Start:23-May-2019 Instruction Type:Patient Education How to access health informa tion online - Detail Indication:Nonsmoker Start:23-May-2019 Instruction Type:Patient Education Patient Instructions Indication:Nonsmoker Start:23-May-2019 Instruction Type:Provider Instructions for Treatment How to access health informa tion online Indication:Nonsmoker Start:07-Jan-2019 Instruction Type:Patient Education How to access health informa tion online - Detail Indication:Nonsmoker Start:07-Jan-2019 Instruction Type:Patient Education Patient Instructions Indication:Nonsmoker Start:07-Jan-2019 Instruction Type:Provider Instructions for Treatment How to access health informa tion online Indication:Nonsmoker Start:27-Sep-2018 Instruction Type:Patient Education How to access health informa tion online - Detail Indication:Nonsmoker Start:27-Sep-2018 Instruction Type:Patient Education Patient Instructions Indication:Nonsmoker Start:27-Sep-2018 Instruction Type:Provider Instructions for Treatment How to access health informa tion online Indication:Nonsmoker Start:27-Aug-2018 Instruction Type:Patient Education How to access health informa tion online - Detail Indication:Nonsmoker Start:27-Aug-2018 Instruction Type:Patient Education Patient Instructions Indication:Nonsmoker Start:27-Aug-2018 Instruction Type:Provider Instructions for Treatment How to access health informa tion online Indication:Nonsmoker Start:04-May-2018 Instruction Type:Patient Education How to access health informa tion online - Detail Indication:Nonsmoker Start:04-May-2018 Instruction Type:Patient Education Patient Instructions Indication:Nonsmoker Start:04-May-2018 Instruction Type:Provider Instructions for Treatment How to access health informa tion online Indication:Body mass index 35.0-35.9, adult Start:07-Feb-2018 Instruction Type:Patient Education How to access health informa tion online - Detail Indication:Body mass index 35.0-35.9, adult Start:07-Feb-2018 Instruction Type:Patient Education Patient Instructions Indication:Body mass index 35.0-35.9, adult Start:07-Feb-2018 Instruction Type:Provider Instructions for Treatment How to access health informa tion online Indication:Nonsmoker Start:03-Aug-2017 Instruction Type:Patient Education How to access health informa tion online - Detail Indication:Nonsmoker Start:03-Aug-2017 Instruction Type:Patient Education Patient Instructions Indication:Influenza Start:03-Aug-2017 Instruction Type:Provider Instructions for Treatment How to access health informa tion online Indication:Nonsmoker Start:12-May-2017 Instruction Type:Patient Education How to access health informa tion online - Detail Indication:Nonsmoker Start:12-May-2017 Instruction Type:Patient Education Patient Instructions Indication:Nonsmoker Start:12-May-2017 Instruction Type:Provider Instructions for Treatment How to access health informa tion online Indication:Nonsmoker Start:09-Feb-2017 Instruction Type:Patient Education How to access health informa tion online - Detail Indication:Nonsmoker Start:09-Feb-2017 Instruction Type:Patient Education Patient Instructions Indication:Nonsmoker Start:09-Feb-2017 Instruction Type:Provider Instructions for Treatment How to access health informa tion online Indication:Nonsmoker Start:22-Dec-2016 Instruction Type:Patient Education How to access health informa tion online - Detail Indication:Nonsmoker Start:22-Dec-2016 Instruction Type:Patient Education Patient Instructions Indication:Nonsmoker Start:22-Dec-2016 Instruction Type:Provider Instructions for Treatment Patient Instructions Indication:Benign essential hypertension Start:28-Jul-2016 Instruction Type:Provider Instructions for Treatment How to access health informa tion online Indication:Benign essential hypertension Start:28-Jul-2016 Instruction Type:Patient Education How to access health informa tion online - Detail Indication:Benign essential hypertension Start:28-Jul-2016 Instruction Type:Patient Education How to access health informa tion online Indication:Nonsmoker Start:05-Jul-2016 Instruction Type:Patient Education How to access health informa tion online - Detail Indication:Nonsmoker Start:05-Jul-2016 Instruction Type:Patient Education Patient Instructions Indication:Nonsmoker Start:05-Jul-2016 Instruction Type:Provider Instructions for Treatment How to access health informa tion online Indication:Annual physical exam Start:25-Feb-2016 Instruction Type:Patient Education How to access health informa tion online - Detail Indication:Annual physical exam Start:25-Feb-2016 Instruction Type:Patient Education Patient Instructions Indication:Annual physical exam Start:25-Feb-2016 Instruction Type:Provider Instructions for Treatment How to access health informa tion online Indication:Mixed hyperlipidemia Start:27-Nov-2015 Instruction Type:Patient Education How to access health informa tion online - Detail Indication:Mixed hyperlipidemia Start:27-Nov-2015 Instruction Type:Patient Education Patient Instructions Indication:Mixed hyperlipidemia Start:27-Nov-2015 Instruction Type:Provider Instructions for Treatment How to access health informa tion online Indication:Gastroesophageal reflux disease without esophagitis Start:29-May-2015 Instruction Type:Patient Education How to access health informa tion online - Detail Indication:Gastroesophageal reflux disease without esophagitis Start:29-May-2015 Instruction Type:Patient Education Patient Instructions Indication:Gastroesophageal reflux disease without esophagitis Start:29-May-2015 Instruction Type:Provider Instructions for Treatment Patient Instructions Indication:Other allergic rhinitis Start:27-Jan-2015 Instruction Type:Provider Instructions for Treatment Patient Instructions Indication:Benign essential hypertension Start:07-Oct-2014 Instruction Type:Provider Instructions for Treatment How to access health informa tion online Indication:Abdominal pain, acute, right upper quadrant Start:29-Aug-2014 Instruction Type:Patient Education How to access health informa tion online - Detail Indication:Abdominal pain, acute, right upper quadrant Start:29-Aug-2014 Instruction Type:Patient Education Patient Instructions Indication:Abdominal pain, acute, right upper quadrant Start:29-Aug-2014 Instruction Type:Provider Instructions for Treatment Patient Instructions Indication:Abdominal pain, acute, right upper quadrant Start:26-Aug-2014 Instruction Type:Provider Instructions for Treatment Patient Instructions Indication:Knee pain Start:24-Dec-2013 Instruction Type:Provider Instructions for Treatment Patient Instructions Indication:Benign essential hypertension Start:22-May-2013 Instruction Type:Provider Instructions for Treatment Patient Instructions Indication:Back pain Start:26-Apr-2013 Instruction Type:Provider Instructions for Treatment Patient Instructions Indication:Insect bite Start:05-Mar-2013 Instruction Type:Provider Instructions for Treatment Patient Instructions Indication:Gastroesophageal reflux disease without esophagitis Start:27-Apr-2012 Instruction Type:Provider Instructions for Treatment Name Dates Details How to access health informa tion online Indication:BMI 36.0-36.9,adult Start:26-Mar-2020 Instruction Type:Patient Education How to access health informa tion online - Detail Indication:BMI 36.0-36.9,adult Start:26-Mar-2020 Instruction Type:Patient Education Patient Instructions Indication:BMI 36.0-36.9,adult Start:26-Mar-2020 Instruction Type:Provider Instructions for Treatment How to access health informa tion online Indication:Compliance poor (Renamed from Poor compliance) Start:16-Jan-2020 Instruction Type:Patient Education How to access health informa tion online - Detail Indication:Compliance poor (Renamed from Poor compliance) Start:16-Jan-2020 Instruction Type:Patient Education How to access health informa tion online Indication:BMI 37.0-37.9, adult Start:28-Oct-2019 Instruction Type:Patient Education How to access health informa tion online - Detail Indication:BMI 37.0-37.9, adult Start:28-Oct-2019 Instruction Type:Patient Education Patient Instructions Indication:BMI 37.0-37.9, adult Start:28-Oct-2019 Instruction Type:Provider Instructions for Treatment How to access health informa tion online Indication:Pharyngitis, acute Start:25-Oct-2019 Instruction Type:Patient Education How to access health informa tion online - Detail Indication:Pharyngitis, acute Start:25-Oct-2019 Instruction Type:Patient Education Patient Instructions Indication:Pharyngitis, acute Start:25-Oct-2019 Instruction Type:Provider Instructions for Treatment How to access health informa tion online Indication:BMI 36.0-36.9,adult Start:16-Oct-2019 Instruction Type:Patient Education How to access health informa tion online - Detail Indication:BMI 36.0-36.9,adult Start:16-Oct-2019 Instruction Type:Patient Education Patient Instructions Indication:BMI 36.0-36.9,adult Start:16-Oct-2019 Instruction Type:Provider Instructions for Treatment How to access health informa tion online Indication:BMI 36.0-36.9,adult Start:15-Jul-2019 Instruction Type:Patient Education How to access health informa tion online - Detail Indication:BMI 36.0-36.9,adult Start:15-Jul-2019 Instruction Type:Patient Education Patient Instructions Indication:BMI 36.0-36.9,adult Start:15-Jul-2019 Instruction Type:Provider Instructions for Treatment How to access health informa tion online Indication:Nonsmoker Start:23-May-2019 Instruction Type:Patient Education How to access health informa tion online - Detail Indication:Nonsmoker Start:23-May-2019 Instruction Type:Patient Education Patient Instructions Indication:Nonsmoker Start:23-May-2019 Instruction Type:Provider Instructions for Treatment How to access health informa tion online Indication:Nonsmoker Start:07-Jan-2019 Instruction Type:Patient Education How to access health informa tion online - Detail Indication:Nonsmoker Start:07-Jan-2019 Instruction Type:Patient Education Patient Instructions Indication:Nonsmoker Start:07-Jan-2019 Instruction Type:Provider Instructions for Treatment How to access health informa tion online Indication:Nonsmoker Start:27-Sep-2018 Instruction Type:Patient Education How to access health informa tion online - Detail Indication:Nonsmoker Start:27-Sep-2018 Instruction Type:Patient Education Patient Instructions Indication:Nonsmoker Start:27-Sep-2018 Instruction Type:Provider Instructions for Treatment How to access health informa tion online Indication:Nonsmoker Start:27-Aug-2018 Instruction Type:Patient Education How to access health informa tion online - Detail Indication:Nonsmoker Start:27-Aug-2018 Instruction Type:Patient Education Patient Instructions Indication:Nonsmoker Start:27-Aug-2018 Instruction Type:Provider Instructions for Treatment How to access health informa tion online Indication:Nonsmoker Start:04-May-2018 Instruction Type:Patient Education How to access health informa tion online - Detail Indication:Nonsmoker Start:04-May-2018 Instruction Type:Patient Education Patient Instructions Indication:Nonsmoker Start:04-May-2018 Instruction Type:Provider Instructions for Treatment How to access health informa tion online Indication:Body mass index 35.0-35.9, adult Start:07-Feb-2018 Instruction Type:Patient Education How to access health informa tion online - Detail Indication:Body mass index 35.0-35.9, adult Start:07-Feb-2018 Instruction Type:Patient Education Patient Instructions Indication:Body mass index 35.0-35.9, adult Start:07-Feb-2018 Instruction Type:Provider Instructions for Treatment How to access health informa tion online Indication:Nonsmoker Start:03-Aug-2017 Instruction Type:Patient Education How to access health informa tion online - Detail Indication:Nonsmoker Start:03-Aug-2017 Instruction Type:Patient Education Patient Instructions Indication:Influenza Start:03-Aug-2017 Instruction Type:Provider Instructions for Treatment How to access health informa tion online Indication:Nonsmoker Start:12-May-2017 Instruction Type:Patient Education How to access health informa tion online - Detail Indication:Nonsmoker Start:12-May-2017 Instruction Type:Patient Education Patient Instructions Indication:Nonsmoker Start:12-May-2017 Instruction Type:Provider Instructions for Treatment How to access health informa tion online Indication:Nonsmoker Start:09-Feb-2017 Instruction Type:Patient Education How to access health informa tion online - Detail Indication:Nonsmoker Start:09-Feb-2017 Instruction Type:Patient Education Patient Instructions Indication:Nonsmoker Start:09-Feb-2017 Instruction Type:Provider Instructions for Treatment How to access health informa tion online Indication:Nonsmoker Start:22-Dec-2016 Instruction Type:Patient Education How to access health informa tion online - Detail Indication:Nonsmoker Start:22-Dec-2016 Instruction Type:Patient Education Patient Instructions Indication:Nonsmoker Start:22-Dec-2016 Instruction Type:Provider Instructions for Treatment Patient Instructions Indication:Benign essential hypertension Start:28-Jul-2016 Instruction Type:Provider Instructions for Treatment How to access health informa tion online Indication:Benign essential hypertension Start:28-Jul-2016 Instruction Type:Patient Education How to access health informa tion online - Detail Indication:Benign essential hypertension Start:28-Jul-2016 Instruction Type:Patient Education How to access health informa tion online Indication:Nonsmoker Start:05-Jul-2016 Instruction Type:Patient Education How to access health informa tion online - Detail Indication:Nonsmoker Start:05-Jul-2016 Instruction Type:Patient Education Patient Instructions Indication:Nonsmoker Start:05-Jul-2016 Instruction Type:Provider Instructions for Treatment How to access health informa tion online Indication:Annual physical exam Start:25-Feb-2016 Instruction Type:Patient Education How to access health informa tion online - Detail Indication:Annual physical exam Start:25-Feb-2016 Instruction Type:Patient Education Patient Instructions Indication:Annual physical exam Start:25-Feb-2016 Instruction Type:Provider Instructions for Treatment How to access health informa tion online Indication:Mixed hyperlipidemia Start:27-Nov-2015 Instruction Type:Patient Education How to access health informa tion online - Detail Indication:Mixed hyperlipidemia Start:27-Nov-2015 Instruction Type:Patient Education Patient Instructions Indication:Mixed hyperlipidemia Start:27-Nov-2015 Instruction Type:Provider Instructions for Treatment How to access health informa tion online Indication:Gastroesophageal reflux disease without esophagitis Start:29-May-2015 Instruction Type:Patient Education How to access health informa tion online - Detail Indication:Gastroesophageal reflux disease without esophagitis Start:29-May-2015 Instruction Type:Patient Education Patient Instructions Indication:Gastroesophageal reflux disease without esophagitis Start:29-May-2015 Instruction Type:Provider Instructions for Treatment Patient Instructions Indication:Other allergic rhinitis Start:27-Jan-2015 Instruction Type:Provider Instructions for Treatment Patient Instructions Indication:Benign essential hypertension Start:07-Oct-2014 Instruction Type:Provider Instructions for Treatment How to access health informa tion online Indication:Abdominal pain, acute, right upper quadrant Start:29-Aug-2014 Instruction Type:Patient Education How to access health informa tion online - Detail Indication:Abdominal pain, acute, right upper quadrant Start:29-Aug-2014 Instruction Type:Patient Education Patient Instructions Indication:Abdominal pain, acute, right upper quadrant Start:29-Aug-2014 Instruction Type:Provider Instructions for Treatment Patient Instructions Indication:Abdominal pain, acute, right upper quadrant Start:26-Aug-2014 Instruction Type:Provider Instructions for Treatment Patient Instructions Indication:Knee pain Start:24-Dec-2013 Instruction Type:Provider Instructions for Treatment Patient Instructions Indication:Benign essential hypertension Start:22-May-2013 Instruction Type:Provider Instructions for Treatment Patient Instructions Indication:Back pain Start:26-Apr-2013 Instruction Type:Provider Instructions for Treatment Patient Instructions Indication:Insect bite Start:05-Mar-2013 Instruction Type:Provider Instructions for Treatment Patient Instructions Indication:Gastroesophageal reflux disease without esophagitis Start:27-Apr-2012 Instruction Type:Provider Instructions for Treatment Name Dates Details How to access health informa tion online Indication:BMI 36.0-36.9,adult Start:26-Mar-2020 Instruction Type:Patient Education How to access health informa tion online - Detail Indication:BMI 36.0-36.9,adult Start:26-Mar-2020 Instruction Type:Patient Education Patient Instructions Indication:BMI 36.0-36.9,adult Start:26-Mar-2020 Instruction Type:Provider Instructions for Treatment How to access health informa tion online Indication:Compliance poor (Renamed from Poor compliance) Start:16-Jan-2020 Instruction Type:Patient Education How to access health informa tion online - Detail Indication:Compliance poor (Renamed from Poor compliance) Start:16-Jan-2020 Instruction Type:Patient Education How to access health informa tion online Indication:BMI 37.0-37.9, adult Start:28-Oct-2019 Instruction Type:Patient Education How to access health informa tion online - Detail Indication:BMI 37.0-37.9, adult Start:28-Oct-2019 Instruction Type:Patient Education Patient Instructions Indication:BMI 37.0-37.9, adult Start:28-Oct-2019 Instruction Type:Provider Instructions for Treatment How to access health informa tion online Indication:Pharyngitis, acute Start:25-Oct-2019 Instruction Type:Patient Education How to access health informa tion online - Detail Indication:Pharyngitis, acute Start:25-Oct-2019 Instruction Type:Patient Education Patient Instructions Indication:Pharyngitis, acute Start:25-Oct-2019 Instruction Type:Provider Instructions for Treatment How to access health informa tion online Indication:BMI 36.0-36.9,adult Start:16-Oct-2019 Instruction Type:Patient Education How to access health informa tion online - Detail Indication:BMI 36.0-36.9,adult Start:16-Oct-2019 Instruction Type:Patient Education Patient Instructions Indication:BMI 36.0-36.9,adult Start:16-Oct-2019 Instruction Type:Provider Instructions for Treatment How to access health informa tion online Indication:BMI 36.0-36.9,adult Start:15-Jul-2019 Instruction Type:Patient Education How to access health informa tion online - Detail Indication:BMI 36.0-36.9,adult Start:15-Jul-2019 Instruction Type:Patient Education Patient Instructions Indication:BMI 36.0-36.9,adult Start:15-Jul-2019 Instruction Type:Provider Instructions for Treatment How to access health informa tion online Indication:Nonsmoker Start:23-May-2019 Instruction Type:Patient Education How to access health informa tion online - Detail Indication:Nonsmoker Start:23-May-2019 Instruction Type:Patient Education Patient Instructions Indication:Nonsmoker Start:23-May-2019 Instruction Type:Provider Instructions for Treatment How to access health informa tion online Indication:Nonsmoker Start:07-Jan-2019 Instruction Type:Patient Education How to access health informa tion online - Detail Indication:Nonsmoker Start:07-Jan-2019 Instruction Type:Patient Education Patient Instructions Indication:Nonsmoker Start:07-Jan-2019 Instruction Type:Provider Instructions for Treatment How to access health informa tion online Indication:Nonsmoker Start:27-Sep-2018 Instruction Type:Patient Education How to access health informa tion online - Detail Indication:Nonsmoker Start:27-Sep-2018 Instruction Type:Patient Education Patient Instructions Indication:Nonsmoker Start:27-Sep-2018 Instruction Type:Provider Instructions for Treatment How to access health informa tion online Indication:Nonsmoker Start:27-Aug-2018 Instruction Type:Patient Education How to access health informa tion online - Detail Indication:Nonsmoker Start:27-Aug-2018 Instruction Type:Patient Education Patient Instructions Indication:Nonsmoker Start:27-Aug-2018 Instruction Type:Provider Instructions for Treatment How to access health informa tion online Indication:Nonsmoker Start:04-May-2018 Instruction Type:Patient Education How to access health informa tion online - Detail Indication:Nonsmoker Start:04-May-2018 Instruction Type:Patient Education Patient Instructions Indication:Nonsmoker Start:04-May-2018 Instruction Type:Provider Instructions for Treatment How to access health informa tion online Indication:Body mass index 35.0-35.9, adult Start:07-Feb-2018 Instruction Type:Patient Education How to access health informa tion online - Detail Indication:Body mass index 35.0-35.9, adult Start:07-Feb-2018 Instruction Type:Patient Education Patient Instructions Indication:Body mass index 35.0-35.9, adult Start:07-Feb-2018 Instruction Type:Provider Instructions for Treatment How to access health informa tion online Indication:Nonsmoker Start:03-Aug-2017 Instruction Type:Patient Education How to access health informa tion online - Detail Indication:Nonsmoker Start:03-Aug-2017 Instruction Type:Patient Education Patient Instructions Indication:Influenza Start:03-Aug-2017 Instruction Type:Provider Instructions for Treatment How to access health informa tion online Indication:Nonsmoker Start:12-May-2017 Instruction Type:Patient Education How to access health informa tion online - Detail Indication:Nonsmoker Start:12-May-2017 Instruction Type:Patient Education Patient Instructions Indication:Nonsmoker Start:12-May-2017 Instruction Type:Provider Instructions for Treatment How to access health informa tion online Indication:Nonsmoker Start:09-Feb-2017 Instruction Type:Patient Education How to access health informa tion online - Detail Indication:Nonsmoker Start:09-Feb-2017 Instruction Type:Patient Education Patient Instructions Indication:Nonsmoker Start:09-Feb-2017 Instruction Type:Provider Instructions for Treatment How to access health informa tion online Indication:Nonsmoker Start:22-Dec-2016 Instruction Type:Patient Education How to access health informa tion online - Detail Indication:Nonsmoker Start:22-Dec-2016 Instruction Type:Patient Education Patient Instructions Indication:Nonsmoker Start:22-Dec-2016 Instruction Type:Provider Instructions for Treatment Patient Instructions Indication:Benign essential hypertension Start:28-Jul-2016 Instruction Type:Provider Instructions for Treatment How to access health informa tion online Indication:Benign essential hypertension Start:28-Jul-2016 Instruction Type:Patient Education How to access health informa tion online - Detail Indication:Benign essential hypertension Start:28-Jul-2016 Instruction Type:Patient Education How to access health informa tion online Indication:Nonsmoker Start:05-Jul-2016 Instruction Type:Patient Education How to access health informa tion online - Detail Indication:Nonsmoker Start:05-Jul-2016 Instruction Type:Patient Education Patient Instructions Indication:Nonsmoker Start:05-Jul-2016 Instruction Type:Provider Instructions for Treatment How to access health informa tion online Indication:Annual physical exam Start:25-Feb-2016 Instruction Type:Patient Education How to access health informa tion online - Detail Indication:Annual physical exam Start:25-Feb-2016 Instruction Type:Patient Education Patient Instructions Indication:Annual physical exam Start:25-Feb-2016 Instruction Type:Provider Instructions for Treatment How to access health informa tion online Indication:Mixed hyperlipidemia Start:27-Nov-2015 Instruction Type:Patient Education How to access health informa tion online - Detail Indication:Mixed hyperlipidemia Start:27-Nov-2015 Instruction Type:Patient Education Patient Instructions Indication:Mixed hyperlipidemia Start:27-Nov-2015 Instruction Type:Provider Instructions for Treatment How to access health informa tion online Indication:Gastroesophageal reflux disease without esophagitis Start:29-May-2015 Instruction Type:Patient Education How to access health informa tion online - Detail Indication:Gastroesophageal reflux disease without esophagitis Start:29-May-2015 Instruction Type:Patient Education Patient Instructions Indication:Gastroesophageal reflux disease without esophagitis Start:29-May-2015 Instruction Type:Provider Instructions for Treatment Patient Instructions Indication:Other allergic rhinitis Start:27-Jan-2015 Instruction Type:Provider Instructions for Treatment Patient Instructions Indication:Benign essential hypertension Start:07-Oct-2014 Instruction Type:Provider Instructions for Treatment How to access health informa tion online Indication:Abdominal pain, acute, right upper quadrant Start:29-Aug-2014 Instruction Type:Patient Education How to access health informa tion online - Detail Indication:Abdominal pain, acute, right upper quadrant Start:29-Aug-2014 Instruction Type:Patient Education Patient Instructions Indication:Abdominal pain, acute, right upper quadrant Start:29-Aug-2014 Instruction Type:Provider Instructions for Treatment Patient Instructions Indication:Abdominal pain, acute, right upper quadrant Start:26-Aug-2014 Instruction Type:Provider Instructions for Treatment Patient Instructions Indication:Knee pain Start:24-Dec-2013 Instruction Type:Provider Instructions for Treatment Patient Instructions Indication:Benign essential hypertension Start:22-May-2013 Instruction Type:Provider Instructions for Treatment Patient Instructions Indication:Back pain Start:26-Apr-2013 Instruction Type:Provider Instructions for Treatment Patient Instructions Indication:Insect bite Start:05-Mar-2013 Instruction Type:Provider Instructions for Treatment Patient Instructions Indication:Gastroesophageal reflux disease without esophagitis Start:27-Apr-2012 Instruction Type:Provider Instructions for Treatment Name Dates Details How to access health informa tion online Indication:BMI 36.0-36.9,adult Start:26-Mar-2020 Instruction Type:Patient Education How to access health informa tion online - Detail Indication:BMI 36.0-36.9,adult Start:26-Mar-2020 Instruction Type:Patient Education Patient Instructions Indication:BMI 36.0-36.9,adult Start:26-Mar-2020 Instruction Type:Provider Instructions for Treatment How to access health informa tion online Indication:Compliance poor (Renamed from Poor compliance) Start:16-Jan-2020 Instruction Type:Patient Education How to access health informa tion online - Detail Indication:Compliance poor (Renamed from Poor compliance) Start:16-Jan-2020 Instruction Type:Patient Education How to access health informa tion online Indication:BMI 37.0-37.9, adult Start:28-Oct-2019 Instruction Type:Patient Education How to access health informa tion online - Detail Indication:BMI 37.0-37.9, adult Start:28-Oct-2019 Instruction Type:Patient Education Patient Instructions Indication:BMI 37.0-37.9, adult Start:28-Oct-2019 Instruction Type:Provider Instructions for Treatment How to access health informa tion online Indication:Pharyngitis, acute Start:25-Oct-2019 Instruction Type:Patient Education How to access health informa tion online - Detail Indication:Pharyngitis, acute Start:25-Oct-2019 Instruction Type:Patient Education Patient Instructions Indication:Pharyngitis, acute Start:25-Oct-2019 Instruction Type:Provider Instructions for Treatment How to access health informa tion online Indication:BMI 36.0-36.9,adult Start:16-Oct-2019 Instruction Type:Patient Education How to access health informa tion online - Detail Indication:BMI 36.0-36.9,adult Start:16-Oct-2019 Instruction Type:Patient Education Patient Instructions Indication:BMI 36.0-36.9,adult Start:16-Oct-2019 Instruction Type:Provider Instructions for Treatment How to access health informa tion online Indication:BMI 36.0-36.9,adult Start:15-Jul-2019 Instruction Type:Patient Education How to access health informa tion online - Detail Indication:BMI 36.0-36.9,adult Start:15-Jul-2019 Instruction Type:Patient Education Patient Instructions Indication:BMI 36.0-36.9,adult Start:15-Jul-2019 Instruction Type:Provider Instructions for Treatment How to access health informa tion online Indication:Nonsmoker Start:23-May-2019 Instruction Type:Patient Education How to access health informa tion online - Detail Indication:Nonsmoker Start:23-May-2019 Instruction Type:Patient Education Patient Instructions Indication:Nonsmoker Start:23-May-2019 Instruction Type:Provider Instructions for Treatment How to access health informa tion online Indication:Nonsmoker Start:07-Jan-2019 Instruction Type:Patient Education How to access health informa tion online - Detail Indication:Nonsmoker Start:07-Jan-2019 Instruction Type:Patient Education Patient Instructions Indication:Nonsmoker Start:07-Jan-2019 Instruction Type:Provider Instructions for Treatment How to access health informa tion online Indication:Nonsmoker Start:27-Sep-2018 Instruction Type:Patient Education How to access health informa tion online - Detail Indication:Nonsmoker Start:27-Sep-2018 Instruction Type:Patient Education Patient Instructions Indication:Nonsmoker Start:27-Sep-2018 Instruction Type:Provider Instructions for Treatment How to access health informa tion online Indication:Nonsmoker Start:27-Aug-2018 Instruction Type:Patient Education How to access health informa tion online - Detail Indication:Nonsmoker Start:27-Aug-2018 Instruction Type:Patient Education Patient Instructions Indication:Nonsmoker Start:27-Aug-2018 Instruction Type:Provider Instructions for Treatment How to access health informa tion online Indication:Nonsmoker Start:04-May-2018 Instruction Type:Patient Education How to access health informa tion online - Detail Indication:Nonsmoker Start:04-May-2018 Instruction Type:Patient Education Patient Instructions Indication:Nonsmoker Start:04-May-2018 Instruction Type:Provider Instructions for Treatment How to access health informa tion online Indication:Body mass index 35.0-35.9, adult Start:07-Feb-2018 Instruction Type:Patient Education How to access health informa tion online - Detail Indication:Body mass index 35.0-35.9, adult Start:07-Feb-2018 Instruction Type:Patient Education Patient Instructions Indication:Body mass index 35.0-35.9, adult Start:07-Feb-2018 Instruction Type:Provider Instructions for Treatment How to access health informa tion online Indication:Nonsmoker Start:03-Aug-2017 Instruction Type:Patient Education How to access health informa tion online - Detail Indication:Nonsmoker Start:03-Aug-2017 Instruction Type:Patient Education Patient Instructions Indication:Influenza Start:03-Aug-2017 Instruction Type:Provider Instructions for Treatment How to access health informa tion online Indication:Nonsmoker Start:12-May-2017 Instruction Type:Patient Education How to access health informa tion online - Detail Indication:Nonsmoker Start:12-May-2017 Instruction Type:Patient Education Patient Instructions Indication:Nonsmoker Start:12-May-2017 Instruction Type:Provider Instructions for Treatment How to access health informa tion online Indication:Nonsmoker Start:09-Feb-2017 Instruction Type:Patient Education How to access health informa tion online - Detail Indication:Nonsmoker Start:09-Feb-2017 Instruction Type:Patient Education Patient Instructions Indication:Nonsmoker Start:09-Feb-2017 Instruction Type:Provider Instructions for Treatment How to access health informa tion online Indication:Nonsmoker Start:22-Dec-2016 Instruction Type:Patient Education How to access health informa tion online - Detail Indication:Nonsmoker Start:22-Dec-2016 Instruction Type:Patient Education Patient Instructions Indication:Nonsmoker Start:22-Dec-2016 Instruction Type:Provider Instructions for Treatment Patient Instructions Indication:Benign essential hypertension Start:28-Jul-2016 Instruction Type:Provider Instructions for Treatment How to access health informa tion online Indication:Benign essential hypertension Start:28-Jul-2016 Instruction Type:Patient Education How to access health informa tion online - Detail Indication:Benign essential hypertension Start:28-Jul-2016 Instruction Type:Patient Education How to access health informa tion online Indication:Nonsmoker Start:05-Jul-2016 Instruction Type:Patient Education How to access health informa tion online - Detail Indication:Nonsmoker Start:05-Jul-2016 Instruction Type:Patient Education Patient Instructions Indication:Nonsmoker Start:05-Jul-2016 Instruction Type:Provider Instructions for Treatment How to access health informa tion online Indication:Annual physical exam Start:25-Feb-2016 Instruction Type:Patient Education How to access health informa tion online - Detail Indication:Annual physical exam Start:25-Feb-2016 Instruction Type:Patient Education Patient Instructions Indication:Annual physical exam Start:25-Feb-2016 Instruction Type:Provider Instructions for Treatment How to access health informa tion online Indication:Mixed hyperlipidemia Start:27-Nov-2015 Instruction Type:Patient Education How to access health informa tion online - Detail Indication:Mixed hyperlipidemia Start:27-Nov-2015 Instruction Type:Patient Education Patient Instructions Indication:Mixed hyperlipidemia Start:27-Nov-2015 Instruction Type:Provider Instructions for Treatment How to access health informa tion online Indication:Gastroesophageal reflux disease without esophagitis Start:29-May-2015 Instruction Type:Patient Education How to access health informa tion online - Detail Indication:Gastroesophageal reflux disease without esophagitis Start:29-May-2015 Instruction Type:Patient Education Patient Instructions Indication:Gastroesophageal reflux disease without esophagitis Start:29-May-2015 Instruction Type:Provider Instructions for Treatment Patient Instructions Indication:Other allergic rhinitis Start:27-Jan-2015 Instruction Type:Provider Instructions for Treatment Patient Instructions Indication:Benign essential hypertension Start:07-Oct-2014 Instruction Type:Provider Instructions for Treatment How to access health informa tion online Indication:Abdominal pain, acute, right upper quadrant Start:29-Aug-2014 Instruction Type:Patient Education How to access health informa tion online - Detail Indication:Abdominal pain, acute, right upper quadrant Start:29-Aug-2014 Instruction Type:Patient Education Patient Instructions Indication:Abdominal pain, acute, right upper quadrant Start:29-Aug-2014 Instruction Type:Provider Instructions for Treatment Patient Instructions Indication:Abdominal pain, acute, right upper quadrant Start:26-Aug-2014 Instruction Type:Provider Instructions for Treatment Patient Instructions Indication:Knee pain Start:24-Dec-2013 Instruction Type:Provider Instructions for Treatment Patient Instructions Indication:Benign essential hypertension Start:22-May-2013 Instruction Type:Provider Instructions for Treatment Patient Instructions Indication:Back pain Start:26-Apr-2013 Instruction Type:Provider Instructions for Treatment Patient Instructions Indication:Insect bite Start:05-Mar-2013 Instruction Type:Provider Instructions for Treatment Patient Instructions Indication:Gastroesophageal reflux disease without esophagitis Start:27-Apr-2012 Instruction Type:Provider Instructions for Treatment Name Dates Details How to access health informa tion online Indication:Nonsmoker Start:07-Jan-2019 Instruction Type:Patient Education How to access health informa tion online - Detail Indication:Nonsmoker Start:07-Jan-2019 Instruction Type:Patient Education Patient Instructions Indication:Nonsmoker Start:07-Jan-2019 Instruction Type:Provider Instructions for Treatment How to access health informa tion online Indication:Nonsmoker Start:27-Sep-2018 Instruction Type:Patient Education How to access health informa tion online - Detail Indication:Nonsmoker Start:27-Sep-2018 Instruction Type:Patient Education Patient Instructions Indication:Nonsmoker Start:27-Sep-2018 Instruction Type:Provider Instructions for Treatment How to access health informa tion online Indication:Nonsmoker Start:27-Aug-2018 Instruction Type:Patient Education How to access health informa tion online - Detail Indication:Nonsmoker Start:27-Aug-2018 Instruction Type:Patient Education Patient Instructions Indication:Nonsmoker Start:27-Aug-2018 Instruction Type:Provider Instructions for Treatment How to access health informa tion online Indication:Nonsmoker Start:04-May-2018 Instruction Type:Patient Education How to access health informa tion online - Detail Indication:Nonsmoker Start:04-May-2018 Instruction Type:Patient Education Patient Instructions Indication:Nonsmoker Start:04-May-2018 Instruction Type:Provider Instructions for Treatment How to access health informa tion online Indication:Body mass index 35.0-35.9, adult Start:07-Feb-2018 Instruction Type:Patient Education How to access health informa tion online - Detail Indication:Body mass index 35.0-35.9, adult Start:07-Feb-2018 Instruction Type:Patient Education Patient Instructions Indication:Body mass index 35.0-35.9, adult Start:07-Feb-2018 Instruction Type:Provider Instructions for Treatment How to access health informa tion online Indication:Nonsmoker Start:03-Aug-2017 Instruction Type:Patient Education How to access health informa tion online - Detail Indication:Nonsmoker Start:03-Aug-2017 Instruction Type:Patient Education Patient Instructions Indication:Influenza Start:03-Aug-2017 Instruction Type:Provider Instructions for Treatment How to access health informa tion online Indication:Nonsmoker Start:12-May-2017 Instruction Type:Patient Education How to access health informa tion online - Detail Indication:Nonsmoker Start:12-May-2017 Instruction Type:Patient Education Patient Instructions Indication:Nonsmoker Start:12-May-2017 Instruction Type:Provider Instructions for Treatment How to access health informa tion online Indication:Nonsmoker Start:09-Feb-2017 Instruction Type:Patient Education How to access health informa tion online - Detail Indication:Nonsmoker Start:09-Feb-2017 Instruction Type:Patient Education Patient Instructions Indication:Nonsmoker Start:09-Feb-2017 Instruction Type:Provider Instructions for Treatment How to access health informa tion online Indication:Nonsmoker Start:22-Dec-2016 Instruction Type:Patient Education How to access health informa tion online - Detail Indication:Nonsmoker Start:22-Dec-2016 Instruction Type:Patient Education Patient Instructions Indication:Nonsmoker Start:22-Dec-2016 Instruction Type:Provider Instructions for Treatment Patient Instructions Indication:Benign essential hypertension Start:28-Jul-2016 Instruction Type:Provider Instructions for Treatment How to access health informa tion online Indication:Benign essential hypertension Start:28-Jul-2016 Instruction Type:Patient Education How to access health informa tion online - Detail Indication:Benign essential hypertension Start:28-Jul-2016 Instruction Type:Patient Education How to access health informa tion online Indication:Nonsmoker Start:05-Jul-2016 Instruction Type:Patient Education How to access health informa tion online - Detail Indication:Nonsmoker Start:05-Jul-2016 Instruction Type:Patient Education Patient Instructions Indication:Nonsmoker Start:05-Jul-2016 Instruction Type:Provider Instructions for Treatment How to access health informa tion online Indication:Annual physical exam Start:25-Feb-2016 Instruction Type:Patient Education How to access health informa tion online - Detail Indication:Annual physical exam Start:25-Feb-2016 Instruction Type:Patient Education Patient Instructions Indication:Annual physical exam Start:25-Feb-2016 Instruction Type:Provider Instructions for Treatment How to access health informa tion online Indication:Mixed hyperlipidemia Start:27-Nov-2015 Instruction Type:Patient Education How to access health informa tion online - Detail Indication:Mixed hyperlipidemia Start:27-Nov-2015 Instruction Type:Patient Education Patient Instructions Indication:Mixed hyperlipidemia Start:27-Nov-2015 Instruction Type:Provider Instructions for Treatment How to access health informa tion online Indication:Gastroesophageal reflux disease without esophagitis Start:29-May-2015 Instruction Type:Patient Education How to access health informa tion online - Detail Indication:Gastroesophageal reflux disease without esophagitis Start:29-May-2015 Instruction Type:Patient Education Patient Instructions Indication:Gastroesophageal reflux disease without esophagitis Start:29-May-2015 Instruction Type:Provider Instructions for Treatment Patient Instructions Indication:Other allergic rhinitis Start:27-Jan-2015 Instruction Type:Provider Instructions for Treatment Patient Instructions Indication:Benign essential hypertension Start:07-Oct-2014 Instruction Type:Provider Instructions for Treatment How to access health informa tion online Indication:Abdominal pain, acute, right upper quadrant Start:29-Aug-2014 Instruction Type:Patient Education How to access health informa tion online - Detail Indication:Abdominal pain, acute, right upper quadrant Start:29-Aug-2014 Instruction Type:Patient Education Patient Instructions Indication:Abdominal pain, acute, right upper quadrant Start:29-Aug-2014 Instruction Type:Provider Instructions for Treatment Patient Instructions Indication:Abdominal pain, acute, right upper quadrant Start:26-Aug-2014 Instruction Type:Provider Instructions for Treatment Patient Instructions Indication:Knee pain Start:24-Dec-2013 Instruction Type:Provider Instructions for Treatment Patient Instructions Indication:Benign essential hypertension Start:22-May-2013 Instruction Type:Provider Instructions for Treatment Patient Instructions Indication:Back pain Start:26-Apr-2013 Instruction Type:Provider Instructions for Treatment Patient Instructions Indication:Insect bite Start:05-Mar-2013 Instruction Type:Provider Instructions for Treatment Patient Instructions Indication:Gastroesophageal reflux disease without esophagitis Start:27-Apr-2012 Instruction Type:Provider Instructions for Treatment Name Dates Details Nonsmoker : How to access he alth information online Indication:Nonsmoker Nonsmoker : How to access he alth information online - Detail Indication:Nonsmoker Nonsmoker : Patient Instruct ions Indication:Nonsmoker Body mass index 35.0-35.9, a dult : How to access health information online Indication:Body mass index 35.0-35.9, adult Body mass index 35.0-35.9, a dult : How to access health information online - Detail Indication:Body mass index 35.0-35.9, adult Body mass index 35.0-35.9, a dult : Patient Instructions Indication:Body mass index 35.0-35.9, adult Influenza : Patient Instruct ions Indication:Influenza Benign essential hypertensio n : Patient Instructions Indication:Benign essential hypertension Benign essential hypertensio n : How to access health information online Indication:Benign essential hypertension Benign essential hypertensio n : How to access health information online - Detail Indication:Benign essential hypertension Annual physical exam : How t o access health information online Indication:Annual physical exam Annual physical exam : How t o access health information online - Detail Indication:Annual physical exam Annual physical exam : Patie nt Instructions Indication:Annual physical exam Mixed hyperlipidemia : How t o access health information online Indication:Mixed hyperlipidemia Mixed hyperlipidemia : How t o access health information online - Detail Indication:Mixed hyperlipidemia Mixed hyperlipidemia : Patie nt Instructions Indication:Mixed hyperlipidemia Gastroesophageal reflux dise ase without esophagitis : How to access health information online Indication:Gastroesophageal reflux disease without esophagitis Gastroesophageal reflux dise ase without esophagitis : How to access health information online - Detail Indication:Gastroesophageal reflux disease without esophagitis Gastroesophageal reflux dise ase without esophagitis : Patient Instructions Indication:Gastroesophageal reflux disease without esophagitis Other allergic rhinitis : Georgette medranont Instructions Indication:Other allergic rhinitis Abdominal pain, acute, right upper quadrant : How to access health information online Indication:Abdominal pain, acute, right upper quadrant Abdominal pain, acute, right upper quadrant : How to access health information online - Detail Indication:Abdominal pain, acute, right upper quadrant Abdominal pain, acute, right upper quadrant : Patient Instructions Indication:Abdominal pain, acute, right upper quadrant Knee pain : Patient Instruct ions Indication:Knee pain Back pain : Patient Instruct ions Indication:Back pain Insect bite : Patient Instru ctions Indication:Insect bite Name Dates Details How to access health informa tion online Indication:BMI 36.0-36.9,adult Start:26-Mar-2020 Instruction Type:Patient Education How to access health informa tion online - Detail Indication:BMI 36.0-36.9,adult Start:26-Mar-2020 Instruction Type:Patient Education Patient Instructions Indication:BMI 36.0-36.9,adult Start:26-Mar-2020 Instruction Type:Provider Instructions for Treatment How to access health informa tion online Indication:Compliance poor (Renamed from Poor compliance) Start:16-Jan-2020 Instruction Type:Patient Education How to access health informa tion online - Detail Indication:Compliance poor (Renamed from Poor compliance) Start:16-Jan-2020 Instruction Type:Patient Education How to access health informa tion online Indication:BMI 37.0-37.9, adult Start:28-Oct-2019 Instruction Type:Patient Education How to access health informa tion online - Detail Indication:BMI 37.0-37.9, adult Start:28-Oct-2019 Instruction Type:Patient Education Patient Instructions Indication:BMI 37.0-37.9, adult Start:28-Oct-2019 Instruction Type:Provider Instructions for Treatment How to access health informa tion online Indication:Pharyngitis, acute Start:25-Oct-2019 Instruction Type:Patient Education How to access health informa tion online - Detail Indication:Pharyngitis, acute Start:25-Oct-2019 Instruction Type:Patient Education Patient Instructions Indication:Pharyngitis, acute Start:25-Oct-2019 Instruction Type:Provider Instructions for Treatment How to access health informa tion online Indication:BMI 36.0-36.9,adult Start:16-Oct-2019 Instruction Type:Patient Education How to access health informa tion online - Detail Indication:BMI 36.0-36.9,adult Start:16-Oct-2019 Instruction Type:Patient Education Patient Instructions Indication:BMI 36.0-36.9,adult Start:16-Oct-2019 Instruction Type:Provider Instructions for Treatment How to access health informa tion online Indication:BMI 36.0-36.9,adult Start:15-Jul-2019 Instruction Type:Patient Education How to access health informa tion online - Detail Indication:BMI 36.0-36.9,adult Start:15-Jul-2019 Instruction Type:Patient Education Patient Instructions Indication:BMI 36.0-36.9,adult Start:15-Jul-2019 Instruction Type:Provider Instructions for Treatment How to access health informa tion online Indication:Nonsmoker Start:23-May-2019 Instruction Type:Patient Education How to access health informa tion online - Detail Indication:Nonsmoker Start:23-May-2019 Instruction Type:Patient Education Patient Instructions Indication:Nonsmoker Start:23-May-2019 Instruction Type:Provider Instructions for Treatment How to access health informa tion online Indication:Nonsmoker Start:07-Jan-2019 Instruction Type:Patient Education How to access health informa tion online - Detail Indication:Nonsmoker Start:07-Jan-2019 Instruction Type:Patient Education Patient Instructions Indication:Nonsmoker Start:07-Jan-2019 Instruction Type:Provider Instructions for Treatment How to access health informa tion online Indication:Nonsmoker Start:27-Sep-2018 Instruction Type:Patient Education How to access health informa tion online - Detail Indication:Nonsmoker Start:27-Sep-2018 Instruction Type:Patient Education Patient Instructions Indication:Nonsmoker Start:27-Sep-2018 Instruction Type:Provider Instructions for Treatment How to access health informa tion online Indication:Nonsmoker Start:27-Aug-2018 Instruction Type:Patient Education How to access health informa tion online - Detail Indication:Nonsmoker Start:27-Aug-2018 Instruction Type:Patient Education Patient Instructions Indication:Nonsmoker Start:27-Aug-2018 Instruction Type:Provider Instructions for Treatment How to access health informa tion online Indication:Nonsmoker Start:04-May-2018 Instruction Type:Patient Education How to access health informa tion online - Detail Indication:Nonsmoker Start:04-May-2018 Instruction Type:Patient Education Patient Instructions Indication:Nonsmoker Start:04-May-2018 Instruction Type:Provider Instructions for Treatment How to access health informa tion online Indication:Body mass index 35.0-35.9, adult Start:07-Feb-2018 Instruction Type:Patient Education How to access health informa tion online - Detail Indication:Body mass index 35.0-35.9, adult Start:07-Feb-2018 Instruction Type:Patient Education Patient Instructions Indication:Body mass index 35.0-35.9, adult Start:07-Feb-2018 Instruction Type:Provider Instructions for Treatment How to access health informa tion online Indication:Nonsmoker Start:03-Aug-2017 Instruction Type:Patient Education How to access health informa tion online - Detail Indication:Nonsmoker Start:03-Aug-2017 Instruction Type:Patient Education Patient Instructions Indication:Influenza Start:03-Aug-2017 Instruction Type:Provider Instructions for Treatment How to access health informa tion online Indication:Nonsmoker Start:12-May-2017 Instruction Type:Patient Education How to access health informa tion online - Detail Indication:Nonsmoker Start:12-May-2017 Instruction Type:Patient Education Patient Instructions Indication:Nonsmoker Start:12-May-2017 Instruction Type:Provider Instructions for Treatment How to access health informa tion online Indication:Nonsmoker Start:09-Feb-2017 Instruction Type:Patient Education How to access health informa tion online - Detail Indication:Nonsmoker Start:09-Feb-2017 Instruction Type:Patient Education Patient Instructions Indication:Nonsmoker Start:09-Feb-2017 Instruction Type:Provider Instructions for Treatment How to access health informa tion online Indication:Nonsmoker Start:22-Dec-2016 Instruction Type:Patient Education How to access health informa tion online - Detail Indication:Nonsmoker Start:22-Dec-2016 Instruction Type:Patient Education Patient Instructions Indication:Nonsmoker Start:22-Dec-2016 Instruction Type:Provider Instructions for Treatment Patient Instructions Indication:Benign essential hypertension Start:28-Jul-2016 Instruction Type:Provider Instructions for Treatment How to access health informa tion online Indication:Benign essential hypertension Start:28-Jul-2016 Instruction Type:Patient Education How to access health informa tion online - Detail Indication:Benign essential hypertension Start:28-Jul-2016 Instruction Type:Patient Education How to access health informa tion online Indication:Nonsmoker Start:05-Jul-2016 Instruction Type:Patient Education How to access health informa tion online - Detail Indication:Nonsmoker Start:05-Jul-2016 Instruction Type:Patient Education Patient Instructions Indication:Nonsmoker Start:05-Jul-2016 Instruction Type:Provider Instructions for Treatment How to access health informa tion online Indication:Annual physical exam Start:25-Feb-2016 Instruction Type:Patient Education How to access health informa tion online - Detail Indication:Annual physical exam Start:25-Feb-2016 Instruction Type:Patient Education Patient Instructions Indication:Annual physical exam Start:25-Feb-2016 Instruction Type:Provider Instructions for Treatment How to access health informa tion online Indication:Mixed hyperlipidemia Start:27-Nov-2015 Instruction Type:Patient Education How to access health informa tion online - Detail Indication:Mixed hyperlipidemia Start:27-Nov-2015 Instruction Type:Patient Education Patient Instructions Indication:Mixed hyperlipidemia Start:27-Nov-2015 Instruction Type:Provider Instructions for Treatment How to access health informa tion online Indication:Gastroesophageal reflux disease without esophagitis Start:29-May-2015 Instruction Type:Patient Education How to access health informa tion online - Detail Indication:Gastroesophageal reflux disease without esophagitis Start:29-May-2015 Instruction Type:Patient Education Patient Instructions Indication:Gastroesophageal reflux disease without esophagitis Start:29-May-2015 Instruction Type:Provider Instructions for Treatment Patient Instructions Indication:Other allergic rhinitis Start:27-Jan-2015 Instruction Type:Provider Instructions for Treatment Patient Instructions Indication:Benign essential hypertension Start:07-Oct-2014 Instruction Type:Provider Instructions for Treatment How to access health informa tion online Indication:Abdominal pain, acute, right upper quadrant Start:29-Aug-2014 Instruction Type:Patient Education How to access health informa tion online - Detail Indication:Abdominal pain, acute, right upper quadrant Start:29-Aug-2014 Instruction Type:Patient Education Patient Instructions Indication:Abdominal pain, acute, right upper quadrant Start:29-Aug-2014 Instruction Type:Provider Instructions for Treatment Patient Instructions Indication:Abdominal pain, acute, right upper quadrant Start:26-Aug-2014 Instruction Type:Provider Instructions for Treatment Patient Instructions Indication:Knee pain Start:24-Dec-2013 Instruction Type:Provider Instructions for Treatment Patient Instructions Indication:Benign essential hypertension Start:22-May-2013 Instruction Type:Provider Instructions for Treatment Patient Instructions Indication:Back pain Start:26-Apr-2013 Instruction Type:Provider Instructions for Treatment Patient Instructions Indication:Insect bite Start:05-Mar-2013 Instruction Type:Provider Instructions for Treatment Patient Instructions Indication:Gastroesophageal reflux disease without esophagitis Start:27-Apr-2012 Instruction Type:Provider Instructions for Treatment Name Dates Details How to access health informa tion online Indication:BMI 36.0-36.9,adult Start:26-Mar-2020 Instruction Type:Patient Education How to access health informa tion online - Detail Indication:BMI 36.0-36.9,adult Start:26-Mar-2020 Instruction Type:Patient Education Patient Instructions Indication:BMI 36.0-36.9,adult Start:26-Mar-2020 Instruction Type:Provider Instructions for Treatment How to access health informa tion online Indication:Compliance poor (Renamed from Poor compliance) Start:16-Jan-2020 Instruction Type:Patient Education How to access health informa tion online - Detail Indication:Compliance poor (Renamed from Poor compliance) Start:16-Jan-2020 Instruction Type:Patient Education How to access health informa tion online Indication:BMI 37.0-37.9, adult Start:28-Oct-2019 Instruction Type:Patient Education How to access health informa tion online - Detail Indication:BMI 37.0-37.9, adult Start:28-Oct-2019 Instruction Type:Patient Education Patient Instructions Indication:BMI 37.0-37.9, adult Start:28-Oct-2019 Instruction Type:Provider Instructions for Treatment How to access health informa tion online Indication:Pharyngitis, acute Start:25-Oct-2019 Instruction Type:Patient Education How to access health informa tion online - Detail Indication:Pharyngitis, acute Start:25-Oct-2019 Instruction Type:Patient Education Patient Instructions Indication:Pharyngitis, acute Start:25-Oct-2019 Instruction Type:Provider Instructions for Treatment How to access health informa tion online Indication:BMI 36.0-36.9,adult Start:16-Oct-2019 Instruction Type:Patient Education How to access health informa tion online - Detail Indication:BMI 36.0-36.9,adult Start:16-Oct-2019 Instruction Type:Patient Education Patient Instructions Indication:BMI 36.0-36.9,adult Start:16-Oct-2019 Instruction Type:Provider Instructions for Treatment How to access health informa tion online Indication:BMI 36.0-36.9,adult Start:15-Jul-2019 Instruction Type:Patient Education How to access health informa tion online - Detail Indication:BMI 36.0-36.9,adult Start:15-Jul-2019 Instruction Type:Patient Education Patient Instructions Indication:BMI 36.0-36.9,adult Start:15-Jul-2019 Instruction Type:Provider Instructions for Treatment How to access health informa tion online Indication:Nonsmoker Start:23-May-2019 Instruction Type:Patient Education How to access health informa tion online - Detail Indication:Nonsmoker Start:23-May-2019 Instruction Type:Patient Education Patient Instructions Indication:Nonsmoker Start:23-May-2019 Instruction Type:Provider Instructions for Treatment How to access health informa tion online Indication:Nonsmoker Start:07-Jan-2019 Instruction Type:Patient Education How to access health informa tion online - Detail Indication:Nonsmoker Start:07-Jan-2019 Instruction Type:Patient Education Patient Instructions Indication:Nonsmoker Start:07-Jan-2019 Instruction Type:Provider Instructions for Treatment How to access health informa tion online Indication:Nonsmoker Start:27-Sep-2018 Instruction Type:Patient Education How to access health informa tion online - Detail Indication:Nonsmoker Start:27-Sep-2018 Instruction Type:Patient Education Patient Instructions Indication:Nonsmoker Start:27-Sep-2018 Instruction Type:Provider Instructions for Treatment How to access health informa tion online Indication:Nonsmoker Start:27-Aug-2018 Instruction Type:Patient Education How to access health informa tion online - Detail Indication:Nonsmoker Start:27-Aug-2018 Instruction Type:Patient Education Patient Instructions Indication:Nonsmoker Start:27-Aug-2018 Instruction Type:Provider Instructions for Treatment How to access health informa tion online Indication:Nonsmoker Start:04-May-2018 Instruction Type:Patient Education How to access health informa tion online - Detail Indication:Nonsmoker Start:04-May-2018 Instruction Type:Patient Education Patient Instructions Indication:Nonsmoker Start:04-May-2018 Instruction Type:Provider Instructions for Treatment How to access health informa tion online Indication:Body mass index 35.0-35.9, adult Start:07-Feb-2018 Instruction Type:Patient Education How to access health informa tion online - Detail Indication:Body mass index 35.0-35.9, adult Start:07-Feb-2018 Instruction Type:Patient Education Patient Instructions Indication:Body mass index 35.0-35.9, adult Start:07-Feb-2018 Instruction Type:Provider Instructions for Treatment How to access health informa tion online Indication:Nonsmoker Start:03-Aug-2017 Instruction Type:Patient Education How to access health informa tion online - Detail Indication:Nonsmoker Start:03-Aug-2017 Instruction Type:Patient Education Patient Instructions Indication:Influenza Start:03-Aug-2017 Instruction Type:Provider Instructions for Treatment How to access health informa tion online Indication:Nonsmoker Start:12-May-2017 Instruction Type:Patient Education How to access health informa tion online - Detail Indication:Nonsmoker Start:12-May-2017 Instruction Type:Patient Education Patient Instructions Indication:Nonsmoker Start:12-May-2017 Instruction Type:Provider Instructions for Treatment How to access health informa tion online Indication:Nonsmoker Start:09-Feb-2017 Instruction Type:Patient Education How to access health informa tion online - Detail Indication:Nonsmoker Start:09-Feb-2017 Instruction Type:Patient Education Patient Instructions Indication:Nonsmoker Start:09-Feb-2017 Instruction Type:Provider Instructions for Treatment How to access health informa tion online Indication:Nonsmoker Start:22-Dec-2016 Instruction Type:Patient Education How to access health informa tion online - Detail Indication:Nonsmoker Start:22-Dec-2016 Instruction Type:Patient Education Patient Instructions Indication:Nonsmoker Start:22-Dec-2016 Instruction Type:Provider Instructions for Treatment Patient Instructions Indication:Benign essential hypertension Start:28-Jul-2016 Instruction Type:Provider Instructions for Treatment How to access health informa tion online Indication:Benign essential hypertension Start:28-Jul-2016 Instruction Type:Patient Education How to access health informa tion online - Detail Indication:Benign essential hypertension Start:28-Jul-2016 Instruction Type:Patient Education How to access health informa tion online Indication:Nonsmoker Start:05-Jul-2016 Instruction Type:Patient Education How to access health informa tion online - Detail Indication:Nonsmoker Start:05-Jul-2016 Instruction Type:Patient Education Patient Instructions Indication:Nonsmoker Start:05-Jul-2016 Instruction Type:Provider Instructions for Treatment How to access health informa tion online Indication:Annual physical exam Start:25-Feb-2016 Instruction Type:Patient Education How to access health informa tion online - Detail Indication:Annual physical exam Start:25-Feb-2016 Instruction Type:Patient Education Patient Instructions Indication:Annual physical exam Start:25-Feb-2016 Instruction Type:Provider Instructions for Treatment How to access health informa tion online Indication:Mixed hyperlipidemia Start:27-Nov-2015 Instruction Type:Patient Education How to access health informa tion online - Detail Indication:Mixed hyperlipidemia Start:27-Nov-2015 Instruction Type:Patient Education Patient Instructions Indication:Mixed hyperlipidemia Start:27-Nov-2015 Instruction Type:Provider Instructions for Treatment How to access health informa tion online Indication:Gastroesophageal reflux disease without esophagitis Start:29-May-2015 Instruction Type:Patient Education How to access health informa tion online - Detail Indication:Gastroesophageal reflux disease without esophagitis Start:29-May-2015 Instruction Type:Patient Education Patient Instructions Indication:Gastroesophageal reflux disease without esophagitis Start:29-May-2015 Instruction Type:Provider Instructions for Treatment Patient Instructions Indication:Other allergic rhinitis Start:27-Jan-2015 Instruction Type:Provider Instructions for Treatment Patient Instructions Indication:Benign essential hypertension Start:07-Oct-2014 Instruction Type:Provider Instructions for Treatment How to access health informa tion online Indication:Abdominal pain, acute, right upper quadrant Start:29-Aug-2014 Instruction Type:Patient Education How to access health informa tion online - Detail Indication:Abdominal pain, acute, right upper quadrant Start:29-Aug-2014 Instruction Type:Patient Education Patient Instructions Indication:Abdominal pain, acute, right upper quadrant Start:29-Aug-2014 Instruction Type:Provider Instructions for Treatment Patient Instructions Indication:Abdominal pain, acute, right upper quadrant Start:26-Aug-2014 Instruction Type:Provider Instructions for Treatment Patient Instructions Indication:Knee pain Start:24-Dec-2013 Instruction Type:Provider Instructions for Treatment Patient Instructions Indication:Benign essential hypertension Start:22-May-2013 Instruction Type:Provider Instructions for Treatment Patient Instructions Indication:Back pain Start:26-Apr-2013 Instruction Type:Provider Instructions for Treatment Patient Instructions Indication:Insect bite Start:05-Mar-2013 Instruction Type:Provider Instructions for Treatment Patient Instructions Indication:Gastroesophageal reflux disease without esophagitis Start:27-Apr-2012 Instruction Type:Provider Instructions for Treatment Name Dates Details Patient Instructions Indication:BMI 36.0-36.9,adult Start:05-Nov-2020 Instruction Type:Provider Instructions for Treatment How to Access Health Informa tion Online using Patient Portal and [employer] Indication:BMI 36.0-36.9,adult Start:05-Nov-2020 Instruction Type:Patient Education How to access health informa tion online Indication:BMI 36.0-36.9,adult Start:26-Mar-2020 Instruction Type:Patient Education How to access health informa tion online - Detail Indication:BMI 36.0-36.9,adult Start:26-Mar-2020 Instruction Type:Patient Education Patient Instructions Indication:BMI 36.0-36.9,adult Start:26-Mar-2020 Instruction Type:Provider Instructions for Treatment How to access health informa tion online Indication:Compliance poor (Renamed from Poor compliance) Start:16-Jan-2020 Instruction Type:Patient Education How to access health informa tion online - Detail Indication:Compliance poor (Renamed from Poor compliance) Start:16-Jan-2020 Instruction Type:Patient Education How to access health informa tion online Indication:BMI 37.0-37.9, adult Start:28-Oct-2019 Instruction Type:Patient Education How to access health informa tion online - Detail Indication:BMI 37.0-37.9, adult Start:28-Oct-2019 Instruction Type:Patient Education Patient Instructions Indication:BMI 37.0-37.9, adult Start:28-Oct-2019 Instruction Type:Provider Instructions for Treatment How to access health informa tion online Indication:Pharyngitis, acute Start:25-Oct-2019 Instruction Type:Patient Education How to access health informa tion online - Detail Indication:Pharyngitis, acute Start:25-Oct-2019 Instruction Type:Patient Education Patient Instructions Indication:Pharyngitis, acute Start:25-Oct-2019 Instruction Type:Provider Instructions for Treatment How to access health informa tion online Indication:BMI 36.0-36.9,adult Start:16-Oct-2019 Instruction Type:Patient Education How to access health informa tion online - Detail Indication:BMI 36.0-36.9,adult Start:16-Oct-2019 Instruction Type:Patient Education Patient Instructions Indication:BMI 36.0-36.9,adult Start:16-Oct-2019 Instruction Type:Provider Instructions for Treatment How to access health informa tion online Indication:BMI 36.0-36.9,adult Start:15-Jul-2019 Instruction Type:Patient Education How to access health informa tion online - Detail Indication:BMI 36.0-36.9,adult Start:15-Jul-2019 Instruction Type:Patient Education Patient Instructions Indication:BMI 36.0-36.9,adult Start:15-Jul-2019 Instruction Type:Provider Instructions for Treatment How to access health informa tion online Indication:Nonsmoker Start:23-May-2019 Instruction Type:Patient Education How to access health informa tion online - Detail Indication:Nonsmoker Start:23-May-2019 Instruction Type:Patient Education Patient Instructions Indication:Nonsmoker Start:23-May-2019 Instruction Type:Provider Instructions for Treatment How to access health informa tion online Indication:Nonsmoker Start:07-Jan-2019 Instruction Type:Patient Education How to access health informa tion online - Detail Indication:Nonsmoker Start:07-Jan-2019 Instruction Type:Patient Education Patient Instructions Indication:Nonsmoker Start:07-Jan-2019 Instruction Type:Provider Instructions for Treatment How to access health informa tion online Indication:Nonsmoker Start:27-Sep-2018 Instruction Type:Patient Education How to access health informa tion online - Detail Indication:Nonsmoker Start:27-Sep-2018 Instruction Type:Patient Education Patient Instructions Indication:Nonsmoker Start:27-Sep-2018 Instruction Type:Provider Instructions for Treatment How to access health informa tion online Indication:Nonsmoker Start:27-Aug-2018 Instruction Type:Patient Education How to access health informa tion online - Detail Indication:Nonsmoker Start:27-Aug-2018 Instruction Type:Patient Education Patient Instructions Indication:Nonsmoker Start:27-Aug-2018 Instruction Type:Provider Instructions for Treatment How to access health informa tion online Indication:Nonsmoker Start:04-May-2018 Instruction Type:Patient Education How to access health informa tion online - Detail Indication:Nonsmoker Start:04-May-2018 Instruction Type:Patient Education Patient Instructions Indication:Nonsmoker Start:04-May-2018 Instruction Type:Provider Instructions for Treatment How to access health informa tion online Indication:Body mass index 35.0-35.9, adult Start:07-Feb-2018 Instruction Type:Patient Education How to access health informa tion online - Detail Indication:Body mass index 35.0-35.9, adult Start:07-Feb-2018 Instruction Type:Patient Education Patient Instructions Indication:Body mass index 35.0-35.9, adult Start:07-Feb-2018 Instruction Type:Provider Instructions for Treatment How to access health informa tion online Indication:Nonsmoker Start:03-Aug-2017 Instruction Type:Patient Education How to access health informa tion online - Detail Indication:Nonsmoker Start:03-Aug-2017 Instruction Type:Patient Education Patient Instructions Indication:Influenza Start:03-Aug-2017 Instruction Type:Provider Instructions for Treatment How to access health informa tion online Indication:Nonsmoker Start:12-May-2017 Instruction Type:Patient Education How to access health informa tion online - Detail Indication:Nonsmoker Start:12-May-2017 Instruction Type:Patient Education Patient Instructions Indication:Nonsmoker Start:12-May-2017 Instruction Type:Provider Instructions for Treatment How to access health informa tion online Indication:Nonsmoker Start:09-Feb-2017 Instruction Type:Patient Education How to access health informa tion online - Detail Indication:Nonsmoker Start:09-Feb-2017 Instruction Type:Patient Education Patient Instructions Indication:Nonsmoker Start:09-Feb-2017 Instruction Type:Provider Instructions for Treatment How to access health informa tion online Indication:Nonsmoker Start:22-Dec-2016 Instruction Type:Patient Education How to access health informa tion online - Detail Indication:Nonsmoker Start:22-Dec-2016 Instruction Type:Patient Education Patient Instructions Indication:Nonsmoker Start:22-Dec-2016 Instruction Type:Provider Instructions for Treatment Patient Instructions Indication:Benign essential hypertension Start:28-Jul-2016 Instruction Type:Provider Instructions for Treatment How to access health informa tion online Indication:Benign essential hypertension Start:28-Jul-2016 Instruction Type:Patient Education How to access health informa tion online - Detail Indication:Benign essential hypertension Start:28-Jul-2016 Instruction Type:Patient Education How to access health informa tion online Indication:Nonsmoker Start:05-Jul-2016 Instruction Type:Patient Education How to access health informa tion online - Detail Indication:Nonsmoker Start:05-Jul-2016 Instruction Type:Patient Education Patient Instructions Indication:Nonsmoker Start:05-Jul-2016 Instruction Type:Provider Instructions for Treatment How to access health informa tion online Indication:Annual physical exam Start:25-Feb-2016 Instruction Type:Patient Education How to access health informa tion online - Detail Indication:Annual physical exam Start:25-Feb-2016 Instruction Type:Patient Education Patient Instructions Indication:Annual physical exam Start:25-Feb-2016 Instruction Type:Provider Instructions for Treatment How to access health informa tion online Indication:Mixed hyperlipidemia Start:27-Nov-2015 Instruction Type:Patient Education How to access health informa tion online - Detail Indication:Mixed hyperlipidemia Start:27-Nov-2015 Instruction Type:Patient Education Patient Instructions Indication:Mixed hyperlipidemia Start:27-Nov-2015 Instruction Type:Provider Instructions for Treatment How to access health informa tion online Indication:Gastroesophageal reflux disease without esophagitis Start:29-May-2015 Instruction Type:Patient Education How to access health informa tion online - Detail Indication:Gastroesophageal reflux disease without esophagitis Start:29-May-2015 Instruction Type:Patient Education Patient Instructions Indication:Gastroesophageal reflux disease without esophagitis Start:29-May-2015 Instruction Type:Provider Instructions for Treatment Patient Instructions Indication:Other allergic rhinitis Start:27-Jan-2015 Instruction Type:Provider Instructions for Treatment Patient Instructions Indication:Benign essential hypertension Start:07-Oct-2014 Instruction Type:Provider Instructions for Treatment How to access health informa tion online Indication:Abdominal pain, acute, right upper quadrant Start:29-Aug-2014 Instruction Type:Patient Education How to access [employer] informa [employer] online - Detail Indication:Abdominal pain, acute, right upper quadrant Start:29-Aug-2014 Instruction Type:Patient Education Patient Instructions Indication:Abdominal pain, acute, right upper quadrant Start:29-Aug-2014 Instruction Type:Provider Instructions for Treatment Patient Instructions Indication:Abdominal pain, acute, right upper quadrant Start:26-Aug-2014 Instruction Type:Provider Instructions for Treatment Patient Instructions Indication:Knee pain Start:24-Dec-2013 Instruction Type:Provider Instructions for Treatment Patient Instructions Indication:Benign essential hypertension Start:22-May-2013 Instruction Type:Provider Instructions for Treatment Patient Instructions Indication:Back pain Start:26-Apr-2013 Instruction Type:Provider Instructions for Treatment Patient Instructions Indication:Insect bite Start:05-Mar-2013 Instruction Type:Provider Instructions for Treatment Patient Instructions Indication:Gastroesophageal reflux disease without esophagitis Start:27-Apr-2012 Instruction Type:Provider Instructions for Treatment Chief Complaint and Reason for Visit Chief Complaint Admit Date SOB November 28, 2024 6:22am Shortness of breath November 28, 2024 9:32am Additional Source Comments (unrecognized sect ion and content) No Status Records FoundNo Status Records FoundNo Status Records FoundNo Status Records Found INFORMATION SOURCE (unrecogn ized section and content) DATE CREATED AUTHOR 01/16/2018 [facility] DATE CREATED AUTHOR AUTHOR'S ORGANIZ ATION 12/03/2022 [facility] DATE CREATED AUTHOR AUTHOR'S ORGANIZ ATION 12/22/2024 [facility] DATE CREATED AUTHOR AUTHOR'S ORGANIZ ATION 12/22/2024 [place] [facility] Care Teams (unrecognized sec tion and content) Team Status: Active Member Role Status Dates Dr. Berta Head DO Family Provider Active Dr. Berta Head DO Primary Care Provider Active Team Status: Inactive Member Role Status Dates Dr. 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 Berta Head DO Primary Care Provider Active Team Status: Inactive Member Role Status Dates Dr. Berta Head DO Primary Care Provider Active Start: November 28, 2024 End: November 28, 2024 Dr. Aarti Summers MD Attending Provider Active Start: November 28, 2024 End: November 28, 2024 Dr. Aarti Summers MD Referring Provider Active Start: November 28, 2024 End: November 28, 2024 Team Status: Active Member Role Status Dates Dr. Berta Head DO Primary Care Provider Active Start: November 28, 2024 Dr. Aarti Summers MD Referring Provider Active Start: November 28, 2024 Dr. Aarti Summers MD Other Provider Active Star t: November 28, 2024 Dr. 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 This clinical summary was aggregated from multiple sources. Caution should be exercised in using it in the provision of clinical care. This summary normalizes information from multiple sources, and as a consequence, information in this document may materially change the coding, format and clinical context of patient data. In addition, data may be omitted in some cases. CLINICAL DECISIONS SHOULD BE BASED ON THE PRIMARY CLINICAL RECORDS. [employer] provides no warranty or guarantee of the accuracy or completeness of information in this document.
[2025-01-04 11:18] LABS: Absolute Lymphocyte Count 2.67 X10^3/uL (0.83-4.51); Absolute Neutrophil Count 5.7 X10^3/uL (2.0-7.7); Basophil# 0.06 X10^3/uL; Basophil% 0.6 % (0-1); Eosinophils% 3.2 % (0-5); Hematocrit 44.9 % (40-54); Hemoglobin 15.2 g/dL (13.0-16.5); Lymphocyte # 2.67 X10^3/ul (0.83-4.51); Lymphocyte % 28.3 % (19-41); Mean Corp Hgb Conc 33.9 g/dL (32-36); Mean Corpuscular Hgb 29.1 pg (27.0-32.0); Mean Corpuscular Volume 85.9 fL (80-94); Monocyte# 0.67 X10^3/uL; Monocyte% 7.1 % (0-10); NRBC Flagged by Analyzer 0 % (0-5); Neutrophil # 5.71 X10^3/uL (2.7-7.7); Neutrophil % 60.6 % (47-70); Platelet Count 387 K/mm3 (150-450); RBC Distribution Width CV 12.8 % (11.6-14.6); RBC Distribution Width SD 39.8 fl (35.1-43.9); Red Blood Count 5.23 M/mm3 (4.6-6.2); White Blood Count 9.4 K/mm3 (4.4-11.0)
[2025-01-04 11:20] LABS: Color, Urine Yellow (Yellow); Glucose, Dipstick Normal (Normal); Ketone-Dipstick 5 mg/dl (Negative); Leukocyte Esterase-Dipstick Negative /ul (Negative); Nitrite-Dipstick Negative (Negative); Occult Blood-Urine 50 /ul (Negative); Protein-Dipstick 15 mg/dl (Negative); Urine Bilirubin Dipstick Negative (Negative); Urine Clarity Clear (Clear); Urine Urobilinogen Normal (Normal)
[2025-01-04 11:33] LABS: Hemoglobin A1c 5.6 % (<=5.6)
[2025-01-04 11:55] LABS: Microalbumin,Random Urine 24.2 mg/L (NO RANGE EST.); Microalbumin:Creatinine Ratio 9.4 mg/g CRE
[2025-01-04 13:27] LABS: ALB/GLOB Ratio 1.3 RATIO (0.9-2.4); AST(SGOT) 19 U/L (<=37); Alanine Aminotransfer ALT/SGPT 30 U/L (<=46); Albumin, Serum 4.3 g/dL (3.5-5.0); Alkaline Phosphatase 85 U/L (40-129); Anion Gap 13 (5-15); BUN 17 mg/dL (4-19); BUN/Creat Ratio 18.2 RATIO (10-20); Calcium,Total 9.6 mg/dL (7.6-11.0); Carbon Dioxide 19.7 mmol/L (21.0-32.0); Chloride 107 mmol/L (98-108); Cholesterol 159 mg/dL (<=200); Creatinine, Serum 0.94 mg/dL (0.70-1.20); EST Glomerular Filtration Rate 104 (>60); Globulin 3.3 g/dL (2.2-4.2); Glucose 101 mg/dL (70-99); High Density Lipoprotein 40 mg/dL; Low Density Lipoprotein Calc. 88 mg/dL; Potassium 4.3 mmol/L (3.3-5.1); Protein, Total 7.7 g/dL (5.9-8.4); Sodium Level 139 mmol/L (133-145); Thyroid Stim Hormone (TSH) 0.781 uIU/mL (0.300-4.200); Total Bilirubin 0.46 mg/dL (0.00-1.30); Triglycerides 155 mg/dL; Very Low Density Lipoprotein 31 mg/dL (5-40); cholesterol:hdl ratio screen 3.97
== END | disposition home or self-care (01) ==
PROVIDERS: PCP Internal Medicine; Referring Provider Internal Medicine; Visit Provider Internal Medicine
DX: E78.2 Mixed hyperlipidemia (principal); E55.9 Vitamin D deficiency, unspecified; I10 Essential (primary) hypertension; R73.9 Hyperglycemia, unspecified
CPT/HCPCS: 36415; 80053; 80061; 81002; 82043; 82306; 82570; 83036; 84443; 85025

== ENCOUNTER 2025-06-30 10:39 | Emergency (ER) | payer OTHER, SELFPAY ==
[2025-06-30 10:39] VITALS: BP 141/121; PULSE 78; RESP 16; TEMP 36.1; O2SAT 100; BMI 32.5
--- NOTE | 2025-06-30 11:41 | EX.ED.DYSGE1 ---
HPI History of Present Illness Chief Complaint: Weakness Informant: patient and spouse/S.O. Narrative Narrative: Patient is a 44-year-old male with a history of ADHD, depression, HTN, and HLD, presenting with fatigue, occasionally feeling like needs to take a deep breath, and myalgias. Patient is accompanied by his , who is supplementing history. - Reports extreme fatigue, stating he slept all day yesterday and could not physically get out of bed. Today, he feels unable to wake up and was falling asleep at stoplights while driving to work. Symptoms, however, especially fatigue, have been ongoing for a couple of months, primarily affecting him on weekends; yesterday was the most severe episode. - Associated symptoms include myalgias, persistent phlegm, and rhinorrhea since Thanks. - Denies emesis, diarrhea, or other abdominal issues. - Reports dyspnea, describing it as an inability to get enough oxygen, leading to heavy breathing multiple times throughout the day. - notes episodes of cyanosis of the lips upon waking. - Recent episodes of headaches, including a migraine last and Monday; denies chronic headaches over the past month or two. - Recent weight loss. - History of mono 20 years ago, with similar symptoms of lethargy and dehydration. - Recent outpt cardiac evaluation due to these sx was normal; PCP suspected Adderall as a potential cause of symptoms. - Currently taking Adderall, antihypertensive, and antihyperlipidemic medications. - Has a follow-up appointment with his PCP on the . [facility] Medical History (Updated 06/30/25 @ 12:[address] Modesto Garnica MD) Hyperlipidemia Kidney stones Chronic neck and back pain High blood pressure Home Medications ?Medication ?Instructions ?Recorded ?Last Taken ?Type amlodipine 5 mg tablet (Norvasc) 5 mg PO DAILY 08/17/18 06/30/25 History rosuvastatin 10 mg tablet 10 mg PO DAILY 11/03/20 06/30/25 History caffeine 200 mg tablet (Stay Awake) 200 mg PO DAILY PRN drowsiness 06/30/25 06/30/25 History cholecalciferol (vitamin D3) 50 50 mcg PO QWEEK 06/30/25 06/24/25 History mcg (2,000 unit) tablet dextroamphetamine-amphetamine 10 1 tab PO QPM 06/30/25 06/29/25 History mg tablet dextroamphetamine-amphetamine ER 1 cap PO DAILY 06/30/25 06/29/25 History 20 mg 24hr capsule,extend release dextroamphetamine-amphetamine ER 1 cap PO DAILY 06/30/25 06/30/25 History 30 mg 24hr capsule,extend release escitalopram oxalate 20 mg tablet 20 mg PO QHS 06/30/25 06/29/25 History pantoprazole 20 mg tablet,delayed 20 mg PO DAILY 06/30/25 06/29/25 History release (Protonix) Allergy/AdvReac Type Severity Reaction Status Date / Time No Known Allergies Allergy Verified 06/30/25 10:40 Surgical History History of back surgery Hx of cholecystectomy Social History Smoking Status: Never smoker ROS ROS ED Constitutional Constitutional ED: Denies chills or fever(s) Eyes Eyes: Denies change in vision or diplopia ENT ENT ED: Reports nasal congestion and rhinorrhea; Denies ear pain or sore throat Cardiovascular Cardiovascular: Denies chest pain, orthopnea or palpitations Respiratory/Chest Respiratory/Chest: Reports cough and dyspnea; Denies dyspnea on exertion, orthopnea or sputum Gastrointestinal Gastrointestinal: Denies abdominal pain, diarrhea, nausea or vomiting Genitourinary Genitourinary ED: Denies dysuria or hematuria Musculoskeletal Musculoskeletal: Reports myalgias; Denies back pain or neck pain Integumentary Reports other Details: Rash-mild erythematous pruritic rash both antecubital fossa yesterday not present currently ; Denies abscess Neurologic Neurologic: Denies headache(s), paresthesias or weakness Psychiatric Psychiatric: Denies suicidal thoughts EXAM Physical Exam Const Vital Signs: 06/30/25 10:39 06/30/25 11:51 06/30/25 11:51 Temperature 96.9 F L Temperature Source Temporal Pulse Rate 78 Respiratory Rate 16 Respiratory Effort Normal Non-Labored Normal Non-Labored Respiratory Pattern Normal Blood Pressure 141/121 H Blood Pressure Mean 127 Pulse Ox 100 Oxygen Delivery Method Room Air Positive well nourished and well developed Constitutional Narrative: Appears malaised but NAD General Appearance ED: well developed and NAD HEENT Reports TM's clear and moist mucous membranes HEENT Narrative: Posterior oropharynx clear. No parotid swelling. No intraoral lesions or [place] spots. normocephalic and atraumatic Tympanic Membrane ED: Yes TM's clear Eyes PERRL and EOMs intact bilaterally Neck full ROM, no lymphadenopathy and supple Resp normal respiratory effort and clear to auscultation bilaterally Cardio regular rate, regular rhythm and no murmurs GI non-tender and non-distended Auscultation: normoactive bowel sounds Palpation: soft Back/Spine no CVA tenderness General Back: other FROM Extremity normal to inspection General Extremety ED: Negative for edema, pulses abnormal or tenderness General Extremity: Negative for edema or pulses abnormal Neuro oriented x3, CN's II-XII intact bilaterally and no sensory deficits noted Sensorium / Orientation: awake and alert Motor Exam: strength 5/5 throughout Psych mental status grossly normal Skin no rashes or lesions noted and no wounds MDM MDM MDM Narrative Medical decision making narrative: The patient has very nonspecific symptoms and normal vital signs on a benign exam, aside from appearing fatigued. I screened him with labs, including a CMP and a CBC, which were normal, including the WBC differential. I performed a mono screen, given his prolonged symptoms, and it is negative. As I explained to him, it is a screen for IgM, and if he had mono earlier, he may have already cleared the IgM. Thus, this does not necessarily rule out mono. His liver enzymes are normal, and he does not have any atypical lymphocytes, but he is far removed from the onset of symptoms. Urinalysis is normal. A two-view chest X-ray is normal by my interpretation and by radiology, with no evidence of pneumonia. His vital signs remain stable. His PERC score is 0 so that rules out PE acutely for this today, and he has a nonfocal unremarkable neurologic examination. He is not examining like meningitis so I do not think he needs an LP today. He has no rashes to suggest dangerous process like necrotizing fasciitis or even an infection that could be causing his symptoms. At this time, he is stable for discharge. I see no emergent medical process, but I recommend close follow-up with his physician. Diagnostics: - CBC: WBC 10.7 K/?L, hemoglobin 16.0 g/dL, platelets 364 K/?L; differential normal. - CMP: within normal limits. - Monospot (IgM) ? negative. - Urinalysis ? normal. - Chest x-ray, 2 views ? normal lungs; no pneumonia; interpretation concordant with radiology. Independently interpreted by me, Modesto Garnica. Lab Data Attestation: I reviewed the patient's lab results. Labs: Laboratory Results - last 24 hr 06/30/25 06/30/25 11:47 12:05 WBC 10.7 RBC 5.58 Hgb 16.0 Hct 47.6 MCV 85.3 MCH 28.7 MCHC 33.6 RDW Std Deviation 38.8 RDW Coeff of Ricco 12.6 Plt Count 364 MPV 10.7 Immature Gran % (Auto) 0.600 Neut % (Auto) 70.0 Lymph % (Auto) 21.8 [place] % (Auto) 5.8 Eos % (Auto) 1.1 Baso % (Auto) 0.7 Absolute Neuts (auto) 7.5 Absolute Lymphs (auto) 2.34 Nucleated RBC % 0 Sodium 139 Potassium 4.1 Chloride 104 Carbon Dioxide 23.6 Anion Gap 12 BUN 11 Creatinine 0.90 Estim Creat Clear Calc 128.53 Est GFR (MDRD) Non-Af 109 BUN/Creatinine Ratio 12.1 Glucose 102 H Calcium 9.5 Total Bilirubin 0.60 AST 20 ALT 35 Alkaline Phosphatase 90 Total Protein 8.0 Albumin 4.3 Globulin 3.7 Albumin/Globulin Ratio 1.2 Urine Color Yellow Urine Clarity Clear Urine pH 6.0 Ur Specific [place] 1.015 Urine Protein Negative Urine Glucose (UA) Normal Urine Ketones Negative Urine Occult Blood 10 H Urine Nitrite Negative Urine Bilirubin Negative Urine Urobilinogen Normal Ur Leukocyte Esterase Negative Urine RBC 0-5 SEEN Urine WBC 0 SEEN Ur Squamous Epith Cells 0 SEEN Urine Bacteria 0 SEEN Urine Mucus 0 SEEN Monoscreen Negative Radiography Diagnostic Testing: Clinical Impression(s) from Imaging Studies Chest X-Ray 06/30/25 11:50 IMPRESSION: No acute abnormality is seen. Reading Location: [place] [id number] Discharge Plan Triage Chief Complaint: Weakness ED Provider: Modesto Garnica Dx/Rx/DC Orders Clinical Impression: Malaise and fatigue, Myalgia, multiple sites Instructions: ED Weakness Uncertain Cause Prescriptions: No Action amlodipine [Norvasc] 5 mg tablet 5 mg PO DAILY rosuvastatin 10 MG tablet 10 mg PO DAILY dextroamphetamine-amphetamine 10 mg tablet 1 tab PO QPM dextroamphetamine-amphetamine 20 mg capsule,extended release 24hr 1 cap PO DAILY Patient Comments: AM escitalopram oxalate 20 mg tablet 20 mg PO QHS dextroamphetamine-amphetamine 30 mg capsule,extended release 24hr 1 cap PO DAILY cholecalciferol (vitamin D3) 50 mcg (2,000 unit) tablet 50 mcg PO QWEEK pantoprazole [Protonix] 20 mg tablet,delayed release (DR/EC) 20 mg PO DAILY caffeine [Stay Awake] 200 mg tablet 200 mg PO DAILY PRN (Reason: drowsiness) Primary Care Provider: Berta Ontiveros Referrals: Berta Ontiveros DO [Primary Care Provider, Internal Medicine] - As soon as possible Print Language: Kiswahili Disposition Disposition: Home, Self Care
[2025-06-30] MEDS: 0.9% Normal Saline (1000mL) 1,000 ML 999 ML IV (11:45)
--- NOTE | 2025-06-30 11:50 | RAD_ITS ---
PROCEDURE: CHEST PA AND LATERAL 06/30/2025 REASON FOR EXAM: COUGH, WEAKNESS TECHNIQUE: Procedure Code: RADCXR Modality: DX Procedure: CHEST PA AND LATERAL COMPARISON: None FINDINGS: Hardware: None Heart: The heart size is normal. Mediastinum: The mediastinal contour is unremarkable. Lungs: Elevation of the right hemidiaphragm. Calcified granulomas in the superior segment of the right lower lobe. No acute infiltrate. Bones: The bones are unremarkable. RAD/Chest PA and Lateral IMPRESSION: No acute abnormality is seen. Reading Location: [place] [id number]
[2025-06-30 12:01] LABS: Hematocrit 47.6 % (40-54); Hemoglobin 16.0 g/dL (13.0-16.5); Immature Granulocytes Count 0.060 X10^3/uL (0.0-0.0); Mean Corp Hgb Conc 33.6 g/dL (32-36); Mean Corpuscular Volume 85.3 fL (80-94); Mean Platelet Vol. 10.7 fl (6.2-12.0); NRBC Flagged by Analyzer 0 % (0-5); Platelet Count 364 K/mm3 (150-450); RBC Distribution Width CV 12.6 % (11.6-14.6); RBC Distribution Width SD 38.8 fl (35.1-43.9); Red Blood Count 5.58 M/mm3 (4.6-6.2); White Blood Count 10.7 K/mm3 (4.4-11.0)
[2025-06-30 12:15] LABS: Mucous, Urine 0 SEEN /hpf (<or=2+); Squamous Epithelial Cells - UA 0 SEEN /hpf (0-5)
[2025-06-30 12:15] LABS: Internal QC Validated? YES +Cl - CLEAR BKGD; Record Kit Lot#, Mono 16251077
[2025-06-30 12:16] LABS: Color, Urine Yellow (Yellow); Glucose, Dipstick Normal (Normal); Ketone-Dipstick Negative (Negative); Leukocyte Esterase-Dipstick Negative /ul (Negative); Nitrite-Dipstick Negative (Negative); Occult Blood-Urine 10 /ul (Negative); Protein-Dipstick Negative (Negative); Specific Gravity, Urine 1.015 (1.002-1.030); Urine Bilirubin Dipstick Negative (Negative)
[2025-06-30 12:16] LABS: AST(SGOT) 20 U/L (<=37); Alanine Aminotransfer ALT/SGPT 35 U/L (<=46); Albumin, Serum 4.3 g/dL (3.5-5.0); Alkaline Phosphatase 90 U/L (40-129); Anion Gap 12 (5-15); BUN 11 mg/dL (4-19); BUN/Creat Ratio 12.1 RATIO (10-20); Calcium,Total 9.5 mg/dL (7.6-11.0); Carbon Dioxide 23.6 mmol/L (21.0-32.0); Chloride 104 mmol/L (98-108); Estimated Creatinine Clearance 128.53 ml/min (50-250); Globulin 3.7 g/dL (2.2-4.2); Glucose 102 mg/dL (70-99); Potassium 4.1 mmol/L (3.3-5.1)
[2025-06-30 12:29] LABS: Red Blood Cells-Urine 0-5 SEEN /hpf (0-5)
[2025-06-30 12:39] VITALS: BP 166/104; PULSE 66; RESP 18; TEMP 36.5; O2SAT 97
[2025-06-30 12:51] VITALS: BP 150/98; PULSE 68; RESP 15; TEMP 36.5; O2SAT 100
[2025-07-01 17:31] LABS: Vitamin B12 752 pg/mL (180-914)
== END 2025-06-30 13:03 | disposition home or self-care (01) ==
PROVIDERS: Emergency Provider Emergency Medicine; PCP Internal Medicine; Visit Provider Emergency Medicine
DX: R53.81 Other malaise (principal); R23.0 Cyanosis; M79.10 Myalgia, unspecified site; R53.1 Weakness; E78.5 Hyperlipidemia, unspecified; I10 Essential (primary) hypertension; F15.90 Other stimulant use, unspecified, uncomplicated; Z90.49 Acquired absence of other specified parts of digestive tract; R05.9 Cough, unspecified; R21 Rash and other nonspecific skin eruption; F90.9 Attention-deficit hyperactivity disorder, unspecified type
CPT/HCPCS: 71046; 80053; 81001; 82607; 84443; 85025; 86308; 86645; 86664; 86665; 96360; 99284; A4216

== ENCOUNTER 2025-07-04 09:19 | Outpatient (CLI) | payer OTHER, SELFPAY ==
[2025-07-07 15:08] LABS: CMV Acute Antibody IgM < 30.0 AU/mL (0.0-29.9); EBV Acute VCA IgM 41.3 U/mL (0.0-35.9); EBV-VCA IgG > 600.0 U/mL (0.0-17.9)
== END 2025-07-04 23:59 | disposition home or self-care (01) ==
LOC: CIMLAB 09:20
PROVIDERS: PCP Internal Medicine; Referring Provider Internal Medicine; Visit Provider Internal Medicine
DX: B27.90 Infectious mononucleosis, unspecified without complication (principal); E55.9 Vitamin D deficiency, unspecified; Z79.899 Other long term (current) drug therapy
CPT/HCPCS: 36415; 86645; 86664; 86665